=== PATIENT | male | born 1960 | race Caucasian/White ===

== ENCOUNTER 2017-11-04 08:42 | Inpatient (IN) | payer MEDICARE, MEDICAID, SELFPAY ==
[2017-11-04] VITALS (30 sets, daily range): BP systolic 112–136; BP diastolic 75–102; PULSE 102–133; RESP 12–39; TEMP 35.9–36.7; O2SAT 40–98; BMI 33.3; BMI 31.9
--- NOTE | 2017-11-04 08:47 | RAD_ITS ---
STUDY: X-RAY CHEST REASON FOR EXAM: Male, 57 years old. Extreme shortness of breath/dyspnea. TECHNIQUE: Single AP portable view of the chest. COMPARISON: Comparison is made with prior study dated October 03, 2017. FINDINGS: EKG electrodes are seen. Hyperinflation. Stable increased markings at the lung bases with blunting of the left costo phrenic angle. This most likely represents bibasilar scarring. Decreased bronchovascular markings in the right upper lobe suggestive of emphysematous changes. Normal size heart. Normal mediastinum and kim. Normal visualized pulmonary arteries. There is atherosclerotic tortuosity of the aortic arch and descending thoracic aorta. Normal visualized thoracic spine. Normal visualized ribs, clavicles, and shoulders. There is no demonstrated abnormality of the visualized soft tissue structures of the upper abdomen. RAD/Chest 1 View (Portable) IMPRESSION: Hyperinflation. Stable increased markings at the lung bases suggests possible scarring. Stable blunting of the left costophrenic angle. Electronically Signed: Sanchez Blood MD at 9:20 EST Tel [phone], Service support ,
--- NOTE | 2017-11-04 08:47 | EKG12_ITS ---
Test Reason : SOB Blood Pressure : / mmHG Vent. Rate : 125 BPM Atrial Rate : 125 BPM P-R Int : 120 ms QRS Dur : 086 ms QT Int : 280 ms P-R-T Axes : 076 046 060 degrees QTc Int : 404 ms Sinus tachycardia Otherwise normal ECG Confirmed by SANDY ESTES ([id number]), online content editor VEE ALEXANDRA ([id number]) on 11/08/2017 9:48:19 AM Referred By: RUBIA Confirmed By:SANDY ESTES
[2017-11-04] MEDS: Ipratropium/Albuterol Sulfate 3 ML AMPUL.NEB INHALATION ×5 (09:03→23:00)
[2017-11-04] MEDS: Albuterol 2.5 MG/3 ML VIAL.NEB. INHALATION ×2 (09:03)
--- NOTE | 2017-11-04 09:06 | ED.VISSUMM ---
- ER Visit Summary Date of Service: 11/04/17 Chief Complaint: Respiratory distress History of Present Illness: The patient is a 57 M presenting for evaluation due to respiratory distress. Patient has an underlying history of COPD last admission for this being back around [place]. Patient and his state that over the course of the last 3 days the patient has been getting progressively more short of breath. It was associated with a cough productive of green sputum and chills. This progressed to significant respiratory distress today the paramedics were called and the patient was brought immediately into the emergency department. Patient denies any chest pain associated with this. Patient states that he has increased his home oxygen from 4 L, and this has not necessarily alleviated his symptoms. Review of systems otherwise negative. Physical Examination: Vital signs notable for heart rate of 124, respiratory rate of 30, pulse ox of 94% on 6 L. Obese male visibly in respiratory distress. Moist mucous membranes. Neck supple. Heart tachycardic and regular no murmurs. Respirations showed respiratory distress with wheezing prolonged expiratory phase diminished sounds and patient speaking in 4-5 word sentences. Abdomen soft nontender. No peripheral edema. Skin was cool and diaphoretic. Remainder physical otherwise unremarkable. Test Results: EKG shows sinus rate of [address] segments normal T waves. Chest x-ray demonstrates chronic changes, CBC shows a leukocytosis of 14, venous blood gas shows hypoxia and hypercapnia. Troponin found to be negative. Flu swab found to be negative. Emergency Department Course and Treatment: Patient presented secondary to respiratory distress. Patient was immediately placed on BiPAP, and was given DuoNeb and albuterol treatments as well as Solu-Medrol. He had progressive improvement on subsequent reexaminations. Patient's workup seems indicative of hypercapnic and hypoxic respiratory failure. Given the fact that the patient requires mechanical ventilation I believe he requires admission to the ICU. I discussed this with the patient's pill packer Dr. Mendez as well as the hospitalist and the patient will be admitted. Disposition: Admission Impression: 1. COPD exacerbation 2. Combined hypercapnic and hypoxic respiratory failure Critical care time 40 minutes This note was generated with [employer] dictation software. It may contain incorrect words, spelling, and punctuation that were not noted in review of the chart prior to signing ED Disposition - Plan for ED Patient: Chief Complaint: Shortness of Breath Referrals: Kenia Matthew MD [Primary Care Provider] -
--- NOTE | 2017-11-04 09:09 | ED.DCSUM_ITS ---
- ER Visit Summary Date of Service: 11/04/17 Chief Complaint: Respiratory distress History of Present Illness: The patient is a 57 M presenting for evaluation due to respiratory distress. Patient has an underlying history of COPD last admission for this being back around [place]. Patient and his state that over the course of the last 3 days the patient has been getting progressively more short of breath. It was associated with a cough productive of green sputum and chills. This progressed to significant respiratory distress today the paramedics were called and the patient was brought immediately into the emergency department. Patient denies any chest pain associated with this. Patient states that he has increased his home oxygen from 4 L, and this has not necessarily alleviated his symptoms. Review of systems otherwise negative. Physical Examination: Vital signs notable for heart rate of 124, respiratory rate of 30, pulse ox of 94% on 6 L. Obese male visibly in respiratory distress. Moist mucous membranes. Neck supple. Heart tachycardic and regular no murmurs. Respirations showed respiratory distress with wheezing prolonged expiratory phase diminished sounds and patient speaking in 4-5 word sentences. Abdomen soft nontender. No peripheral edema. Skin was cool and diaphoretic. Remainder physical otherwise unremarkable. Test Results: EKG shows sinus rate of [address] segments normal T waves. Chest x-ray demonstrates chronic changes, CBC shows a leukocytosis of 14 , venous blood gas shows hypoxia and hypercapnia. Troponin found to be negative. Flu swab found to be negative. Emergency Department Course and Treatment: Patient presented secondary to respiratory distress. Patient was immediately placed on BiPAP, and was given DuoNeb and albuterol treatments as well as Solu-Medrol. He had progressive improvement on subsequent reexaminations. Patient's workup seems indicative of hypercapnic and hypoxic respiratory failure. Given the fact that the patient requires mechanical ventilation I believe he requires admission to the ICU. I discussed this with the patient's medical staff manager Dr. Mendez as well as the hospitalist and the patient will be admitted. Disposition: Admission Impression: 1. COPD exacerbation 2. Combined hypercapnic and hypoxic respiratory failure Critical care time 40 minutes This note was generated with [employer] dictation software. It may contain incorrect words, spelling, and punctuation that were not noted in review of the chart prior to signing ED Disposition - Plan for ED Patient: Chief Complaint: Shortness of Breath Referrals: Kenia Matthew MD [Primary Care Provider] -
[2017-11-04 09:39] LABS: Differential Indicated MANUAL DIFF; Hematocrit 41.8 % (40-54); Hemoglobin 11.9 g/dl (13.0-16.5); Mean Corp Hgb Conc 28.5 g/gl (32-36); Mean Corpuscular Hgb 23.4 pg (27.0-32.0); Mean Corpuscular Volume 82.1 fL (80-94); Mean Platelet Vol. 8.8 fl (6.2-12.0); POSITIVE COUNT YES; POSITIVE DIFFERENTIAL NO; POSITIVE MORPHOLOGY YES; Platelet Count 455 K/mm3 (150-450); RBC Distribution Width CV 16.1 % (11.6-14.6); RBC Distribution Width SD 48.5 fl (35.1-43.9); Red Blood Count 5.09 M/mm3 (4.6-6.2)
[2017-11-04 09:41] LABS: Blood Gas Specimen Type VEN; EPAP 11; FI02 40; IPAP 15; RR 12; Time Given 933; VBG BASE EXCESS 13 mmol/L (-1.0-3.5); VBG Bicarbonate 39 mmol/L (22-26); VBG Oxygen Content 41 mmol/L (23-33); VBG PO2 42 mmHg (25-40); VBG SO2 73 % (50-70); VBG pCO2 69.5 mmHg (41-51); VBG pH 7.35 (7.32-7.42)
[2017-11-04 09:43] LABS: Anion Gap 7 (5-15); BUN 17 mg/dL (7-18); BUN/Creat Ratio 14.3 RATIO (10-20); Calcium,Total 9.1 mg/dL (8.5-10.1); Chloride 93 mmol/L (98-107); Creatinine, Serum 1.19 mg/dL (0.70-1.30); EST Glomerular Filtration Rate 67 mL/min (>60); Est Glom Filt Rate - Afr Amer 81 mL/min (>60); Estimated Creatinine Clearance 72.07 ml/min; Glucose 156 mg/dL (70-110); Potassium 4.4 mmol/L (3.5-5.1); Sodium Level 136 mmol/L (136-145)
[2017-11-04] MEDS: MethylPREDNISolone 125 MG/2 ML Vial IV (09:43)
--- NOTE | 2017-11-04 10:05 | NURSING ---
DR SOFY BARKLEY
[2017-11-04 10:07] LABS: Eosinophil 1 % (0-5); Lymphocyte 14 % (19-41); Metamyelocyte 5 % (0-1); Monocyte 2 % (0-10); Neutrophil-Band 1 % (0-5); Neutrophil-Segmented 77 % (47-70); Total Cells Counted 100 (MANUAL DIFF)
[2017-11-04 10:08] LABS: Absolute Neutrophil Count 10.9 X10^3/uL (2.0-7.7); Platelet Estimate ADEQUATE (ADEQ); Red Cell Morphology NORM C+C NORMAL (NORM C&C)
--- NOTE | 2017-11-04 10:19 | NURSING ---
ICU ARF SOFY
[2017-11-04 14:13] LABS: M R Staph aureus DNA By PCR Negative (Negative); Probe Check PASS; Specimen Processing Control PASS
--- NOTE | 2017-11-04 14:27 | PCM.HP.STD ---
Problem List (1) Acute and chronic respiratory failure with hypoxia Status: Acute (2) Acute exacerbation of COPD with asthma Status: Acute (3) Congestive heart failure Status: Chronic (4) Presence of stent in coronary artery Status: Chronic Comment: C w/stenting to prox RCA (5) Atherosclerotic heart disease of [place] coronary artery without angina pectoris Status: Chronic Comment: [facility] w/stenting to prox RCA 07/15 (6) COPD (chronic obstructive pulmonary disease) Status: Chronic Qualifiers: (7) Hypertension Status: Chronic Qualifiers: (8) Hyperlipidemia Status: Chronic Qualifiers: History of Present Illness Date of Admission: 11/04/17 Chief Complaint: shortness of beathing The patient is a 57 year old M presents with shortness of breath. Patient had been for the past 3 days more short of breath. Patient was having cough with productive sputum and chills. Patient presented to the emergency room and was noted to be hypoxic at 84%. Patient was put on a BiPAP and stabilized. In the emergency room, patient received Solu-Medrol, and aerosols. Patient was awoken up by me in the ICU and states he is feeling better. Patient is rather tired at this time and is not very forthcoming historian. [] Past Medical History Past Medical History (Chronic Problems): Chronic Problems (Last Reviewed 10/27/17 @ 13:51 by Lizeth Clark) Congestive heart failure (Chronic) Presence of stent in coronary artery (Chronic ~07/2006) [facility] w/stenting to prox RCA Atherosclerotic heart disease of [place] coronary artery without angina pectoris (Chronic) [facility] w/stenting to prox RCA 07/15 COPD (chronic obstructive pulmonary disease) (Chronic) Hypertension (Chronic) Hyperlipidemia (Chronic) Allergies diazepam [From Valium] Adverse Reaction (Verified 11/04/17 08:51) Vomiting Home Medications: Ambulatory Orders Medication Instructions Recorded Aspirin [Aspirin, Baby] 81 mg PO DAILY@0800 10/04/14 Atorvastatin Calcium [Lipitor] 40 mg PO QHS 10/04/14 Cholecalciferol (VIT D3) [Vitamin 1,000 unit PO DAILY 10/04/14 D3] Clopidogrel Bisulfate [Plavix] 75 mg PO DAILY 10/04/14 Furosemide [Lasix] 40 mg PO BID 10/04/14 Multivitamins,Therapeutic 1 tab PO DAILY 10/04/14 [Multivitamin] Budesonide/Formoterol 160/4.5 2 puff INHALATION BID 02/24/15 [Symbicort 160/4.5 Mcg Inhaler (SP)] Roflumilast [Daliresp] 500 mcg PO DAILY 02/24/15 Budesonide Aerosol [Pulmicort 0.5 mg INHALATION BID 04/29/15 Respules] Potassium Chloride [Klor-Con M10] 20 meq PO BID 04/29/15 Famotidine [Pepcid] 20 mg PO BID 08/01/15 Metformin HCl [Glucophage] 750 mg PO DAILY 08/01/15 Oxygen, Home [Home Oxygen] 4 lpm NASAL PRN PRN 08/01/15 Albuterol Aerosols [Ventolin 2.5 mg INHALATION Q4H PRN PRN 08/02/15 Aerosols] Metformin HCl [Glucophage] 500 mg PO QHS 10/08/16 Ipratropium [Atrovent Aerosols] 0.5 mg INHALATION Q4H PRN PRN 11/08/16 Prednisone 10 mg PO DAILY #55 tab 10/09/17 bupropion HCl 100 mg tablet 100 mg PO BID 10/25/17 metoprolol tartrate 25 mg tablet 25 mg PO BID #60 tab 10/27/17 Surgical History: - - Rotator cuff surgery Psychiatric History: No pertinent psych hx Smoking Status: Former smoker - *Family History Maternal Family History: Family History (Last Reviewed 10/27/17 @ 13:51 by Lizeth Clark) Mother Diabetes Father Heart disease CVA (cerebral vascular accident) Brother Diabetes History Items: Clotting Disorder - Mother with history of PE following an ankle surgery Paternal Family History: Family History (Last Reviewed 10/27/17 @ 13:51 by Lizeth Clark) Mother Diabetes Father Heart disease CVA (cerebral vascular accident) Brother Diabetes History Items: Heart Disease Review of Systems Constitutional: Reports: Chills, Fever. Denies: Anorexia Eyes: Denies: Blurred vision, Double vision HEENT: Denies: Head Aches, Sinus Congestion, Sinus Drainage Cardiovascular: Denies: Chest Pain, Palpitations Respiratory: Reports: Cough, Shortness of Breath, Sputum production Gastrointestinal: Denies: Abdominal Pain, Nausea, Vomiting Genitourinary: Denies: Dysuria Musculoskeletal: Denies: Joint Pain, Joint Tenderness Skin: Denies: Rash, Wounds Neurological: Denies: Numbness, Tingling, Focal weakness Psychiatric: Denies: Anxiety, Depression, Homicidal Ideations, Suicidal Ideations Hematologic/ Lymphatic: Denies: Easy Bruising, Easy Bleeding, Hx of blood clot VTE Information - Inpt Only VTE Present on Admission: No VTE Pharm Prophylaxis ordered?: Yes Patient Problems: Active and Suspected Problems (Last Reviewed 10/27/17 @ 13:51 by Lizeth Clark) Acute and chronic respiratory failure with hypoxia (Acute) Acute exacerbation of COPD with asthma (Acute) - Physical Exam General: Alert, Cooperative, No apparent distress, - - On BiPAP. No respiratory distress. HEENT: Atraumatic, Normocephalic Oral: Moist Mucosa, No Gingival or Mucosal Lesions/ Ulcerations Neck: No Nodes, Thyroid Normal Size and Texture Lungs: Diminished, Wheezes Cardiovascular: Regular rate, Regular Rhythm, Normal S1, Normal S2, No murmurs Abdomen: Bowel Sounds Present, Soft, Non Tender, Non-Distended, No Hepato-splenomegaly Extremities: No edema, No Calf Tenderness Skin: No rashes, No breakdown Musculoskeletal: No Tenderness to Palpation of Joints or Extremities, No Muscle Wasting Neurological: Neuro grossly intact, Sensory exam intact to light touch and pain, - - No clonus Psych/Mental Status: Normal Affect, Appropriate Vital Signs Temp Pulse Resp BP Pulse Ox 35.9 C L 115 H 31 H 126/81 H 98 11/04/17 12:45 11/04/17 13:40 11/04/17 13:40 11/04/17 12:45 11/04/17 13:40 Oxygen Flow Rate 6 Oxygen Delivery Method Bi-pap Weight: 103.9 kg Body Mass Index (BMI) 31.9 Laboratory Tests Past 24 Hrs 11/04/17 12:35 MRSA (PCR) Negative Laboratory Results - last 24 hr 11/04/17 11/04/17 11/04/17 09:15 09:15 09:35 WBC 14.0 H RBC 5.09 Hgb 11.9 L Hct 41.8 MCV 82.1 MCH 23.4 L MCHC 28.5 L RDW 16.1 H RDW Differential 48.5 H Plt Count 455 H MPV 8.8 Neut % (Auto) Not Reportable Absolute Neuts (auto) 10.9 H Absolute Lymphs (auto) 2.00 Total Counted 100 Neutrophils % (Manual) 77 H Band Neutrophils % 1 Lymphocytes % (Manual) 14 L Monocytes % (Manual) 2 Eosinophils % (Manual) 1 Metamyelocytes % 5 H Diff Path Review May foll Platelet Estimate ADEQUATE RBC Morphology NORM C+C Specimen Type YULISSA O2 % 40 VBG pH 7.35 VBG pO2 42 H VBG O2 Sat (Calc) 73 H VBG O2 Content 41 H VBG Base Excess 13 H POC Mix VBG pCO2 Pt Tmp 69.5 H Respiration Rate 12 O2 Delivery Device Bi / C PAP EPAP 11 IPAP 15 Blood Gas Notified Whom ED MD Blood Gas Notified Time 933 Sodium 136 Potassium 4.4 Chloride 93 L Carbon Dioxide 36.0 H Anion Gap 7 BUN 17 Creatinine 1.19 Estim Creat Clear Calc 72.07 Est GFR (MDRD) Af Amer 81 Est GFR (MDRD) Non-Af 67 BUN/Creatinine Ratio 14.3 Glucose 156 H Calcium 9.1 Troponin I < 0.02 MRSA (PCR) 11/04/17 12:35 WBC RBC Hgb Hct MCV MCH MCHC RDW RDW Differential Plt Count MPV Neut % (Auto) Absolute Neuts (auto) Absolute Lymphs (auto) Total Counted Neutrophils % (Manual) Band Neutrophils % Lymphocytes % (Manual) Monocytes % (Manual) Eosinophils % (Manual) Metamyelocytes % Diff Path Review Platelet Estimate RBC Morphology Specimen Type O2 % VBG pH VBG pO2 VBG O2 Sat (Calc) VBG O2 Content VBG Base Excess POC Mix VBG pCO2 Pt Tmp Respiration Rate O2 Delivery Device EPAP IPAP Blood Gas Notified Whom Blood Gas Notified Time Sodium Potassium Chloride Carbon Dioxide Anion Gap BUN Creatinine Estim Creat Clear Calc Est GFR (MDRD) Af Amer Est GFR (MDRD) Non-Af BUN/Creatinine Ratio Glucose Calcium Troponin I MRSA (PCR) Negative Chest x-ray personally reviewed and shows some hyperinflation. No acute infiltrate or edema. Assessment/Plan Active and Suspected Problems (Last Reviewed 10/27/17 @ 13:51 by Lizeth Clark) Acute and chronic respiratory failure with hypoxia (Acute) Acute exacerbation of COPD with asthma (Acute) A 57-year-old white male presents with 3 days of increasing shortness of breath. Patient diagnosed with acute hypoxic respiratory failure as well as acute exacerbation of COPD. Patient has been started on steroids as well with bronchodilators. Patient initially admitted to the ICU. 1. Acute hypoxic respiratory failure Secondary to COPD. Patient been placed on BiPAP. Pulmonary consultation 2. Acute exacerbation of COPD Continue with Solu-Medrol plus bronchodilators. No evidence of any infiltrate on chest x-rays, so not started any antibiotics. 3. Coronary artery disease Status post PCI. Continue with aspirin, Plavix and statin. 4. Diabetes mellitus type 2 On metformin. We will add sliding scale insulin to his regimen. Moderate dose. 5. DVT prophylaxis with Lovenox Code Visit Inpatient E&M: 87560 Init Hosp L3
--- NOTE | 2017-11-04 14:37 | HP.PCM_ITS ---
Problem List (1) Acute and chronic respiratory failure with hypoxia Status: Acute (2) Acute exacerbation of COPD with asthma Status: Acute (3) Congestive heart failure Status: Chronic (4) Presence of stent in coronary artery Status: Chronic Comment: C w/stenting to prox RCA (5) Atherosclerotic heart disease of [place] coronary artery without angina pectoris Status: Chronic Comment: [facility] w/stenting to prox RCA 07/15 (6) COPD (chronic obstructive pulmonary disease) Status: Chronic Qualifiers: (7) Hypertension Status: Chronic Qualifiers: (8) Hyperlipidemia Status: Chronic Qualifiers: History of Present Illness Date of Admission: 11/04/17 Chief Complaint: shortness of beathing The patient is a 57 year old M presents with shortness of breath. Patient had been for the past 3 days more short of breath. Patient was having cough with productive sputum and chills. Patient presented to the emergency room and was noted to be hypoxic at 84%. Patient was put on a BiPAP and stabilized. In the emergency room, patient received Solu-Medrol, and aerosols. Patient was awoken up by me in the ICU and states he is feeling better. Patient is rather tired at this time and is not very forthcoming historian. [] Past Medical History Past Medical History (Chronic Problems): Chronic Problems (Last Reviewed 10/27/17 @ 13:51 by Lizeth Clark) Congestive heart failure (Chronic) Presence of stent in coronary artery (Chronic ~07/2006) [facility] w/stenting to prox RCA Atherosclerotic heart disease of [place] coronary artery without angina pectoris (Chronic) [facility] w/stenting to prox RCA 07/15 COPD (chronic obstructive pulmonary disease) (Chronic) Hypertension (Chronic) Hyperlipidemia (Chronic) Allergies diazepam [From Valium] Adverse Reaction (Verified 11/04/17 08:51) Vomiting Home Medications: Ambulatory Orders Medication Instructions Recorded Aspirin [Aspirin, Baby] 81 mg PO DAILY@0800 10/04/14 Atorvastatin Calcium [Lipitor] 40 mg PO QHS 10/04/14 Cholecalciferol (VIT D3) [Vitamin 1,000 unit PO DAILY 10/04/14 D3] Clopidogrel Bisulfate [Plavix] 75 mg PO DAILY 10/04/14 Furosemide [Lasix] 40 mg PO BID 10/04/14 Multivitamins,Therapeutic 1 tab PO DAILY 10/04/14 [Multivitamin] Budesonide/Formoterol 160/4.5 2 puff INHALATION BID 02/24/15 [Symbicort 160/4.5 Mcg Inhaler (SP)] Roflumilast [Daliresp] 500 mcg PO DAILY 02/24/15 Budesonide Aerosol [Pulmicort 0.5 mg INHALATION BID 04/29/15 Respules] Potassium Chloride [Klor-Con M10] 20 meq PO BID 04/29/15 Famotidine [Pepcid] 20 mg PO BID 08/01/15 Metformin HCl [Glucophage] 750 mg PO DAILY 08/01/15 Oxygen, Home [Home Oxygen] 4 lpm NASAL PRN PRN 08/01/15 Albuterol Aerosols [Ventolin 2.5 mg INHALATION Q4H PRN PRN 08/02/15 Aerosols] Metformin HCl [Glucophage] 500 mg PO QHS 10/08/16 Ipratropium [Atrovent Aerosols] 0.5 mg INHALATION Q4H PRN PRN 11/08/16 Prednisone 10 mg PO DAILY #55 tab 10/09/17 bupropion HCl 100 mg tablet 100 mg PO BID 10/25/17 metoprolol tartrate 25 mg tablet 25 mg PO BID #60 tab 10/27/17 Surgical History: - - Rotator cuff surgery Psychiatric History: No pertinent psych hx Smoking Status: Former smoker - *Family History Maternal Family History: Family History (Last Reviewed 10/27/17 @ 13:51 by Lizeth Clark) Mother Diabetes Father Heart disease CVA (cerebral vascular accident) Brother Diabetes History Items: Clotting Disorder - Mother with history of PE following an ankle surgery Paternal Family History: Family History (Last Reviewed 10/27/17 @ 13:51 by Lizeth Clark) Mother Diabetes Father Heart disease CVA (cerebral vascular accident) Brother Diabetes History Items: Heart Disease Review of Systems Constitutional: Reports: Chills, Fever. Denies: Anorexia Eyes: Denies: Blurred vision, Double vision HEENT: Denies: Head Aches, Sinus Congestion, Sinus Drainage Cardiovascular: Denies: Chest Pain, Palpitations Respiratory: Reports: Cough, Shortness of Breath, Sputum production Gastrointestinal: Denies: Abdominal Pain, Nausea, Vomiting Genitourinary: Denies: Dysuria Musculoskeletal: Denies: Joint Pain, Joint Tenderness Skin: Denies: Rash, Wounds Neurological: Denies: Numbness, Tingling, Focal weakness Psychiatric: Denies: Anxiety, Depression, Homicidal Ideations, Suicidal Ideations Hematologic/ Lymphatic: Denies: Easy Bruising, Easy Bleeding, Hx of blood clot VTE Information - Inpt Only VTE Present on Admission: No VTE Pharm Prophylaxis ordered?: Yes Patient Problems: Active and Suspected Problems (Last Reviewed 10/27/17 @ 13:51 by Lizeth Clark) Acute and chronic respiratory failure with hypoxia (Acute) Acute exacerbation of COPD with asthma (Acute) - Physical Exam General: Alert, Cooperative, No apparent distress, - - On BiPAP. No respiratory distress. HEENT: Atraumatic, Normocephalic Oral: Moist Mucosa, No Gingival or Mucosal Lesions/ Ulcerations Neck: No Nodes, Thyroid Normal Size and Texture Lungs: Diminished, Wheezes Cardiovascular: Regular rate, Regular Rhythm, Normal S1, Normal S2, No murmurs Abdomen: Bowel Sounds Present, Soft, Non Tender, Non-Distended, No Hepato- splenomegaly Extremities: No edema, No Calf Tenderness Skin: No rashes, No breakdown Musculoskeletal: No Tenderness to Palpation of Joints or Extremities, No Muscle Wasting Neurological: Neuro grossly intact, Sensory exam intact to light touch and pain , - - No clonus Psych/Mental Status: Normal Affect, Appropriate Vital Signs Temp Pulse Resp BP Pulse Ox 35.9 C L 115 H 31 H 126/81 H 98 11/04/17 12:45 11/04/17 13:40 11/04/17 13:40 11/04/17 12:45 11/04/17 13:40 Oxygen Flow Rate 6 Oxygen Delivery Method Bi-pap Weight: 103.9 kg Body Mass Index (BMI) 31.9 Laboratory Tests Past 24 Hrs 11/04/17 12:35 MRSA (PCR) Negative Laboratory Results - last 24 hr 11/04/17 11/04/17 11/04/17 09:15 09:15 09:35 WBC 14.0 H RBC 5.09 Hgb 11.9 L Hct 41.8 MCV 82.1 MCH 23.4 L MCHC 28.5 L RDW 16.1 H RDW Differential 48.5 H Plt Count 455 H MPV 8.8 Neut % (Auto) Not Reportable Absolute Neuts (auto) 10.9 H Absolute Lymphs (auto) 2.00 Total Counted 100 Neutrophils % (Manual) 77 H Band Neutrophils % 1 Lymphocytes % (Manual) 14 L Monocytes % (Manual) 2 Eosinophils % (Manual) 1 Metamyelocytes % 5 H Diff Path Review May foll Platelet Estimate ADEQUATE RBC Morphology NORM C+C Specimen Type YULISSA O2 % 40 VBG pH 7.35 VBG pO2 42 H VBG O2 Sat (Calc) 73 H VBG O2 Content 41 H VBG Base Excess 13 H POC Mix VBG pCO2 Pt Tmp 69.5 H Respiration Rate 12 O2 Delivery Device Bi / C PAP EPAP 11 IPAP 15 Blood Gas Notified Whom ED MD Blood Gas Notified Time 933 Sodium 136 Potassium 4.4 Chloride 93 L Carbon Dioxide 36.0 H Anion Gap 7 BUN 17 Creatinine 1.19 Estim Creat Clear Calc 72.07 Est GFR (MDRD) Af Amer 81 Est GFR (MDRD) Non-Af 67 BUN/Creatinine Ratio 14.3 Glucose 156 H Calcium 9.1 Troponin I < 0.02 MRSA (PCR) 11/04/17 12:35 WBC RBC Hgb Hct MCV MCH MCHC RDW RDW Differential Plt Count MPV Neut % (Auto) Absolute Neuts (auto) Absolute Lymphs (auto) Total Counted Neutrophils % (Manual) Band Neutrophils % Lymphocytes % (Manual) Monocytes % (Manual) Eosinophils % (Manual) Metamyelocytes % Diff Path Review Platelet Estimate RBC Morphology Specimen Type O2 % VBG pH VBG pO2 VBG O2 Sat (Calc) VBG O2 Content VBG Base Excess POC Mix VBG pCO2 Pt Tmp Respiration Rate O2 Delivery Device EPAP IPAP Blood Gas Notified Whom Blood Gas Notified Time Sodium Potassium Chloride Carbon Dioxide Anion Gap BUN Creatinine Estim Creat Clear Calc Est GFR (MDRD) Af Amer Est GFR (MDRD) Non-Af BUN/Creatinine Ratio Glucose Calcium Troponin I MRSA (PCR) Negative Chest x-ray personally reviewed and shows some hyperinflation. No acute infiltrate or edema. Assessment/Plan Active and Suspected Problems (Last Reviewed 10/27/17 @ 13:51 by Lizeth Clark) Acute and chronic respiratory failure with hypoxia (Acute) Acute exacerbation of COPD with asthma (Acute) A 57-year-old white male presents with 3 days of increasing shortness of breath. Patient diagnosed with acute hypoxic respiratory failure as well as acute exacerbation of COPD. Patient has been started on steroids as well with bronchodilators. Patient initially admitted to the ICU. 1. Acute hypoxic respiratory failure Secondary to COPD. Patient been placed on BiPAP. Pulmonary consultation 2. Acute exacerbation of COPD Continue with Solu-Medrol plus bronchodilators. No evidence of any infiltrate on chest x-rays, so not started any antibiotics. 3. Coronary artery disease Status post PCI. Continue with aspirin, Plavix and statin. 4. Diabetes mellitus type 2 On metformin. We will add sliding scale insulin to his regimen. Moderate dose. 5. DVT prophylaxis with Lovenox Code Visit Inpatient E&M: 55806 Init Hosp L3
[2017-11-04 15:32] LABS: Pathologist Review Reviewed
[2017-11-04] MEDS: 0.9% Normal Saline 1,000 ML 50 ML IV (16:00)
--- NOTE | 2017-11-04 16:27 | PCM.CON.CC ---
Problem List (1) Acute and chronic respiratory failure with hypoxia Status: Acute (2) Acute exacerbation of COPD with asthma Status: Acute (3) Old myocardial infarction Status: Acute (4) Congestive heart failure Status: Chronic Qualifiers: Congestive heart failure type: diastolic Congestive heart failure chronicity: chronic Qualified Code(s): I50.32 - Chronic diastolic (congestive) heart failure (5) Presence of stent in coronary artery Status: Chronic Comment: [facility] w/stenting to prox RCA (6) Atherosclerotic heart disease of [place] coronary artery without angina pectoris Status: Chronic Qualifiers: [place] vs. transplanted heart: [place] heart Qualified Code(s): I25.10 - Atherosclerotic heart disease of [place] coronary artery without angina pectoris Comment: [facility] w/stenting to prox RCA 07/15 (7) COPD (chronic obstructive pulmonary disease) Status: Chronic Qualifiers: COPD type: COPD with acute lower respiratory infection Qualified Code(s): J44.0 - Chronic obstructive pulmonary disease with acute lower respiratory infection (8) Hypertension Status: Chronic Qualifiers: Hypertension type: essential hypertension (9) Hyperlipidemia Status: Chronic Qualifiers: Hyperlipidemia type: pure hypercholesterolemia Reason for Consult Date of Consultation: 11/04/17 Reason for Consultation: COPD exacerbation History of Present Illness: The patient is a 57 year old M, with past medical history listed below and well-known to me from the outpatient office, who presented to [facility] secondary to 3 days of progressive shortness of breath. Patient does report a cough productive of green to yellow sputum and chills. In the emergency room, patient was noted to be 84% on baseline oxygen. Patient was placed on BiPAP therapy with improvement in overall condition. Patient was also given Solu-Medrol and aerosols. Patient was transferred to the intensive care unit for further monitoring. On evaluation in the intensive care unit, patient reports that he is tired, but overall feels subjectively improved since admission. Patient reports that he has been compliant with his trilogy at home, in addition to his supplemental oxygen. Patient denies missing any medications. Patient is not reporting any chest pain, nausea or vomiting at this time. Patient has noted some lower extremity edema. Patient denies any dietary modifications. Patient does feel that he made it back to his baseline between hospitalizations. Patient reports that he has not taken much by mouth in the last 24 hours secondary to shortness of breath. Patient does report thirst. Patient is known to have advanced COPD with a last known FEV1 of 20% predicted in May 2017. Patient does have a trilogy ventilator at home and patient reports compliance. However, this was broken his last admission in September secondary to infestation. Patient does not report that this was fixed by the D1G. Review of systems otherwise negative ?10 systems. Past Medical History Past Medical History (Chronic Problems): Chronic Problems (Last Reviewed 10/27/17 @ 13:51 by Lizeth Clark) Congestive heart failure (Chronic) Presence of stent in coronary artery (Chronic ~07/2006) [facility] w/stenting to prox RCA Atherosclerotic heart disease of [place] coronary artery without angina pectoris (Chronic) [facility] w/stenting to prox RCA 07/15 COPD (chronic obstructive pulmonary disease) (Chronic) Hypertension (Chronic) Hyperlipidemia (Chronic) Allergies diazepam [From Valium] Adverse Reaction (Verified 11/04/17 08:51) Vomiting Home Medications: Ambulatory Orders Medication Instructions Recorded Aspirin [Aspirin, Baby] 81 mg PO DAILY@0800 10/04/14 Atorvastatin Calcium [Lipitor] 40 mg PO QHS 10/04/14 Cholecalciferol (VIT D3) [Vitamin 1,000 unit PO DAILY 10/04/14 D3] Clopidogrel Bisulfate [Plavix] 75 mg PO DAILY 10/04/14 Furosemide [Lasix] 40 mg PO BID 10/04/14 Multivitamins,Therapeutic 1 tab PO DAILY 10/04/14 [Multivitamin] Budesonide/Formoterol 160/4.5 2 puff INHALATION BID 02/24/15 [Symbicort 160/4.5 Mcg Inhaler (SP)] Roflumilast [Daliresp] 500 mcg PO DAILY 02/24/15 Budesonide Aerosol [Pulmicort 0.5 mg INHALATION BID 04/29/15 Respules] Potassium Chloride [Klor-Con M10] 20 meq PO BID 04/29/15 Famotidine [Pepcid] 20 mg PO BID 08/01/15 Metformin HCl [Glucophage] 750 mg PO DAILY 08/01/15 Oxygen, Home [Home Oxygen] 4 lpm NASAL PRN PRN 08/01/15 Albuterol Aerosols [Ventolin 2.5 mg INHALATION Q4H PRN PRN 08/02/15 Aerosols] Metformin HCl [Glucophage] 500 mg PO QHS 10/08/16 Ipratropium [Atrovent Aerosols] 0.5 mg INHALATION Q4H PRN PRN 11/08/16 Prednisone 10 mg PO DAILY #55 tab 10/09/17 bupropion HCl 100 mg tablet 100 mg PO BID 10/25/17 metoprolol tartrate 25 mg tablet 25 mg PO BID #60 tab 10/27/17 Surgical History: - - Rotator cuff surgery Psychiatric History: No pertinent psych hx Smoking Status: Former smoker - *Family History Maternal Family History: Family History (Last Reviewed 10/27/17 @ 13:51 by Lizeth Clark) Mother Diabetes Father Heart disease CVA (cerebral vascular accident) Brother Diabetes History Items: Clotting Disorder - Mother with history of PE following an ankle surgery Paternal Family History: Family History (Last Reviewed 10/27/17 @ 13:51 by Lizeth Clark) Mother Diabetes Father Heart disease CVA (cerebral vascular accident) Brother Diabetes History Items: Heart Disease Review of Systems Comment: See HPI Patient Problems: Active and Suspected Problems (Last Reviewed 10/27/17 @ 13:51 by Lizeth Clark) Acute and chronic respiratory failure with hypoxia (Acute) Acute exacerbation of COPD with asthma (Acute) Objective: Chest x-ray was personally reviewed and shows continued hyperinflation. No acute infiltrate is appreciated. - Physical Exam General: Alert, Oriented x3, Cooperative, No apparent distress, - - Obese. Good BiPAP synchrony noted. HEENT: Atraumatic, PERRLA, EOMI, Normocephalic, - - Scleral injection without icterus Oral: No Gingival or Mucosal Lesions/ Ulcerations, Dry Mucosa Neck: Supple, No JVD, No Nodes, Trachea Midline Lungs: No rhonchi, No rales, Diminished, Wheezes, - - Symmetric expansion. No dullness to percussion. Cardiovascular: Normal S1, Normal S2, No murmurs, No rub noted, No Gallop, Tachycardic Abdomen: Bowel Sounds Present, Soft, Non Tender, Non-Distended, Obese Extremities: No cyanosis, Capillary Refill Less than 3 Seconds, Clubbing, Edema Skin: No rashes, No breakdown Musculoskeletal: No Tenderness to Palpation of Joints or Extremities Lymphatic: No Cervical, Supraclavicular, or Inguinal Adenopathy Neurological: Cranial nerves II-XII grossly intact, Neuro grossly intact, Motor Exam 5/5 strength throughout Psych/Mental Status: Alert and oriented to time, place, person, mood and affect Vital Signs Temp Pulse Resp BP Pulse Ox 35.9 C L 106 H 24 H 122/84 H 96 11/04/17 12:45 11/04/17 15:03 11/04/17 15:03 11/04/17 15:00 11/04/17 15:03 Oxygen Flow Rate 6 Oxygen Delivery Method Bi-pap Weight: 103.9 kg Body Mass Index (BMI) 31.9 Laboratory Tests 11/04/17 11/04/17 11/04/17 09:15 09:15 09:35 WBC 14.0 H RBC 5.09 Hgb 11.9 L Hct 41.8 MCV 82.1 MCH 23.4 L MCHC 28.5 L RDW 16.1 H RDW Differential 48.5 H Plt Count 455 H MPV 8.8 Neut % (Auto) Not Reportable Absolute Neuts (auto) 10.9 H Absolute Lymphs (auto) 2.00 Total Counted 100 Neutrophils % (Manual) 77 H Band Neutrophils % 1 Lymphocytes % (Manual) 14 L Monocytes % (Manual) 2 Eosinophils % (Manual) 1 Metamyelocytes % 5 H Diff Path Review Reviewed Platelet Estimate ADEQUATE RBC Morphology NORM C+C Specimen Type YULISSA O2 % 40 VBG pH 7.35 VBG pO2 42 H VBG O2 Sat (Calc) 73 H VBG O2 Content 41 H VBG Base Excess 13 H POC Mix VBG pCO2 Pt Tmp 69.5 H Respiration Rate 12 O2 Delivery Device Bi / C PAP EPAP 11 IPAP 15 Blood Gas Notified Whom ED Blood Gas Notified Time 933 Sodium 136 Potassium 4.4 Chloride 93 L Carbon Dioxide 36.0 H Anion Gap 7 BUN 17 Creatinine 1.19 Estim Creat Clear Calc 72.07 Est GFR (MDRD) Af Amer 81 Est GFR (MDRD) Non-Af 67 BUN/Creatinine Ratio 14.3 Glucose 156 H Calcium 9.1 Troponin I < 0.02 MRSA (PCR) 11/04/17 12:35 WBC RBC Hgb Hct MCV MCH MCHC RDW RDW Differential Plt Count MPV Neut % (Auto) Absolute Neuts (auto) Absolute Lymphs (auto) Total Counted Neutrophils % (Manual) Band Neutrophils % Lymphocytes % (Manual) Monocytes % (Manual) Eosinophils % (Manual) Metamyelocytes % Diff Path Review Platelet Estimate RBC Morphology Specimen Type O2 % VBG pH VBG pO2 VBG O2 Sat (Calc) VBG O2 Content VBG Base Excess POC Mix VBG pCO2 Pt Tmp Respiration Rate O2 Delivery Device EPAP IPAP Blood Gas Notified Whom Blood Gas Notified Time Sodium Potassium Chloride Carbon Dioxide Anion Gap BUN Creatinine Estim Creat Clear Calc Est GFR (MDRD) Af Amer Est GFR (MDRD) Non-Af BUN/Creatinine Ratio Glucose Calcium Troponin I MRSA (PCR) Negative Clinical Impression(s) from Imaging Studies Chest X-Ray 11/04/17 08:47 IMPRESSION: Hyperinflation. Stable increased markings at the lung bases suggests possible scarring. Stable blunting of the left costophrenic angle. Electronically Signed: Sanchez Blood MD at 9:20 EST Tel [phone], Service support , Assessment/Plan Active and Suspected Problems (Last Reviewed 10/27/17 @ 13:51 by Lizeth Clark) Acute and chronic respiratory failure with hypoxia (Acute) Acute exacerbation of COPD with asthma (Acute) RECOMMENDATIONS: 1. Increase IV steroids to every 6 hours 2. Agree with holding on antibiotics, initiate with fever only 3. Slow hydration overnight, repeat chest x-ray tomorrow 4. Obtain viral panel if no infiltrate by tomorrow 5. BiPAP breaks as tolerated IMPRESSIONS: 1. Acute on chronic hypoxic and hypercarbic respiratory failure Patient with advanced lung disease at baseline. Patient was last known FEV1 of 20% of predicted. Will increase steroids to IV every 6 hours. Will need to watch blood sugars closely. Patient does not have an infiltrate on chest x-ray at this time. However, patient does report decreased p.o. intake over the last 24 hours. Will start with gentle rehydration overnight and hold Lasix. Repeat chest x-ray tomorrow morning. If no infiltrate, a viral panel can be obtained. Agree with waiting on antibiotics until patient develops fever or other constitutional symptoms. 2. COPD exacerbation secondary to recent URI Patient had PFTs in May which showed severe partially reversible ventilatory defect. See #1. Unclear if patient has been compliant with home trilogy ventilator. Previous admission patient had brought this and it was nonfunctional. Patient does not report this is been fixed. Noncompliance with trilogy or oxygen therapy could lead to recurrent exacerbations. Patient did not make an attempt to contact our office prior to presenting for this exacerbation. 3. CAD s/pPTCA/anxiety/hyperlipidemia/hypertension Complicates care, management, recovery, and prognosis. Management per hospitalist. This note was generated with [employer] dictation software. It may contain incorrect words, spelling, and punctuation that were not noted in checking the note before signing. Code Visit Inpatient E&M: 09430 Init Hosp L3
--- NOTE | 2017-11-04 16:37 | CON.PCM_ITS ---
Problem List (1) Acute and chronic respiratory failure with hypoxia Status: Acute (2) Acute exacerbation of COPD with asthma Status: Acute (3) Old myocardial infarction Status: Acute (4) Congestive heart failure Status: Chronic Qualifiers: Congestive heart failure type: diastolic Congestive heart failure chronicity: chronic Qualified Code(s): I50.32 - Chronic diastolic (congestive ) heart failure (5) Presence of stent in coronary artery Status: Chronic Comment: [facility] w/stenting to prox RCA (6) Atherosclerotic heart disease of [place] coronary artery without angina pectoris Status: Chronic Qualifiers: [place] vs. transplanted heart: [place] heart Qualified Code(s): I25.10 - Atherosclerotic heart disease of [place] coronary artery without angina pectoris Comment: [facility] w/stenting to prox RCA 07/15 (7) COPD (chronic obstructive pulmonary disease) Status: Chronic Qualifiers: COPD type: COPD with acute lower respiratory infection Qualified Code(s): J44.0 - Chronic obstructive pulmonary disease with acute lower respiratory infection (8) Hypertension Status: Chronic Qualifiers: Hypertension type: essential hypertension (9) Hyperlipidemia Status: Chronic Qualifiers: Hyperlipidemia type: pure hypercholesterolemia Reason for Consult Date of Consultation: 11/04/17 Reason for Consultation: COPD exacerbation History of Present Illness: The patient is a 57 year old M, with past medical history listed below and well- known to me from the outpatient office, who presented to [facility] secondary to 3 days of progressive shortness of breath. Patient does report a cough productive of green to yellow sputum and chills. In the emergency room, patient was noted to be 84% on baseline oxygen. Patient was placed on BiPAP therapy with improvement in overall condition. Patient was also given Solu-Medrol and aerosols. Patient was transferred to the intensive care unit for further monitoring. On evaluation in the intensive care unit, patient reports that he is tired, but overall feels subjectively improved since admission. Patient reports that he has been compliant with his trilogy at home, in addition to his supplemental oxygen. Patient denies missing any medications. Patient is not reporting any chest pain, nausea or vomiting at this time. Patient has noted some lower extremity edema. Patient denies any dietary modifications. Patient does feel that he made it back to his baseline between hospitalizations. Patient reports that he has not taken much by mouth in the last 24 hours secondary to shortness of breath. Patient does report thirst. Patient is known to have advanced COPD with a last known FEV1 of 20% predicted in May 2017. Patient does have a trilogy ventilator at home and patient reports compliance. However, this was broken his last admission in September secondary to infestation. Patient does not report that this was fixed by the [employer]. Review of systems otherwise negative ?10 systems. Past Medical History Past Medical History (Chronic Problems): Chronic Problems (Last Reviewed 10/27/17 @ 13:51 by Lizeth Clark) Congestive heart failure (Chronic) Presence of stent in coronary artery (Chronic ~07/2006) [facility] w/stenting to prox RCA Atherosclerotic heart disease of [place] coronary artery without angina pectoris (Chronic) [facility] w/stenting to prox RCA 07/15 COPD (chronic obstructive pulmonary disease) (Chronic) Hypertension (Chronic) Hyperlipidemia (Chronic) Allergies diazepam [From Valium] Adverse Reaction (Verified 11/04/17 08:51) Vomiting Home Medications: Ambulatory Orders Medication Instructions Recorded Aspirin [Aspirin, Baby] 81 mg PO DAILY@0800 10/04/14 Atorvastatin Calcium [Lipitor] 40 mg PO QHS 10/04/14 Cholecalciferol (VIT D3) [Vitamin 1,000 unit PO DAILY 10/04/14 D3] Clopidogrel Bisulfate [Plavix] 75 mg PO DAILY 10/04/14 Furosemide [Lasix] 40 mg PO BID 10/04/14 Multivitamins,Therapeutic 1 tab PO DAILY 10/04/14 [Multivitamin] Budesonide/Formoterol 160/4.5 2 puff INHALATION BID 02/24/15 [Symbicort 160/4.5 Mcg Inhaler (SP)] Roflumilast [Daliresp] 500 mcg PO DAILY 02/24/15 Budesonide Aerosol [Pulmicort 0.5 mg INHALATION BID 04/29/15 Respules] Potassium Chloride [Klor-Con M10] 20 meq PO BID 04/29/15 Famotidine [Pepcid] 20 mg PO BID 08/01/15 Metformin HCl [Glucophage] 750 mg PO DAILY 08/01/15 Oxygen, Home [Home Oxygen] 4 lpm NASAL PRN PRN 08/01/15 Albuterol Aerosols [Ventolin 2.5 mg INHALATION Q4H PRN PRN 08/02/15 Aerosols] Metformin HCl [Glucophage] 500 mg PO QHS 10/08/16 Ipratropium [Atrovent Aerosols] 0.5 mg INHALATION Q4H PRN PRN 11/08/16 Prednisone 10 mg PO DAILY #55 tab 10/09/17 bupropion HCl 100 mg tablet 100 mg PO BID 10/25/17 metoprolol tartrate 25 mg tablet 25 mg PO BID #60 tab 10/27/17 Surgical History: - - Rotator cuff surgery Psychiatric History: No pertinent psych hx Smoking Status: Former smoker - *Family History Maternal Family History: Family History (Last Reviewed 10/27/17 @ 13:51 by Lizeth Clark) Mother Diabetes Father Heart disease CVA (cerebral vascular accident) Brother Diabetes History Items: Clotting Disorder - Mother with history of PE following an ankle surgery Paternal Family History: Family History (Last Reviewed 10/27/17 @ 13:51 by Lizeth Clark) Mother Diabetes Father Heart disease CVA (cerebral vascular accident) Brother Diabetes History Items: Heart Disease Review of Systems Comment: See HPI Patient Problems: Active and Suspected Problems (Last Reviewed 10/27/17 @ 13:51 by Lizeth Clark) Acute and chronic respiratory failure with hypoxia (Acute) Acute exacerbation of COPD with asthma (Acute) Objective: Chest x-ray was personally reviewed and shows continued hyperinflation. No acute infiltrate is appreciated. - Physical Exam General: Alert, Oriented x3, Cooperative, No apparent distress, - - Obese. Good BiPAP synchrony noted. HEENT: Atraumatic, PERRLA, EOMI, Normocephalic, - - Scleral injection without icterus Oral: No Gingival or Mucosal Lesions/ Ulcerations, Dry Mucosa Neck: Supple, No JVD, No Nodes, Trachea Midline Lungs: No rhonchi, No rales, Diminished, Wheezes, - - Symmetric expansion. No dullness to percussion. Cardiovascular: Normal S1, Normal S2, No murmurs, No rub noted, No Gallop, Tachycardic Abdomen: Bowel Sounds Present, Soft, Non Tender, Non-Distended, Obese Extremities: No cyanosis, Capillary Refill Less than 3 Seconds, Clubbing, Edema Skin: No rashes, No breakdown Musculoskeletal: No Tenderness to Palpation of Joints or Extremities Lymphatic: No Cervical, Supraclavicular, or Inguinal Adenopathy Neurological: Cranial nerves II-XII grossly intact, Neuro grossly intact, Motor Exam 5/5 strength throughout Psych/Mental Status: Alert and oriented to time, place, person, mood and affect Vital Signs Temp Pulse Resp BP Pulse Ox 35.9 C L 106 H 24 H 122/84 H 96 11/04/17 12:45 11/04/17 15:03 11/04/17 15:03 11/04/17 15:00 11/04/17 15:03 Oxygen Flow Rate 6 Oxygen Delivery Method Bi-pap Weight: 103.9 kg Body Mass Index (BMI) 31.9 Laboratory Tests 11/04/17 11/04/17 11/04/17 09:15 09:15 09:35 WBC 14.0 H RBC 5.09 Hgb 11.9 L Hct 41.8 MCV 82.1 MCH 23.4 L MCHC 28.5 L RDW 16.1 H RDW Differential 48.5 H Plt Count 455 H MPV 8.8 Neut % (Auto) Not Reportable Absolute Neuts (auto) 10.9 H Absolute Lymphs (auto) 2.00 Total Counted 100 Neutrophils % (Manual) 77 H Band Neutrophils % 1 Lymphocytes % (Manual) 14 L Monocytes % (Manual) 2 Eosinophils % (Manual) 1 Metamyelocytes % 5 H Diff Path Review Reviewed Platelet Estimate ADEQUATE RBC Morphology NORM C+C Specimen Type YULISSA O2 % 40 VBG pH 7.35 VBG pO2 42 H VBG O2 Sat (Calc) 73 H VBG O2 Content 41 H VBG Base Excess 13 H POC Mix VBG pCO2 Pt Tmp 69.5 H Respiration Rate 12 O2 Delivery Device Bi / C PAP EPAP 11 IPAP 15 Blood Gas Notified Whom ED Blood Gas Notified Time 933 Sodium 136 Potassium 4.4 Chloride 93 L Carbon Dioxide 36.0 H Anion Gap 7 BUN 17 Creatinine 1.19 Estim Creat Clear Calc 72.07 Est GFR (MDRD) Af Amer 81 Est GFR (MDRD) Non-Af 67 BUN/Creatinine Ratio 14.3 Glucose 156 H Calcium 9.1 Troponin I < 0.02 MRSA (PCR) 11/04/17 12:35 WBC RBC Hgb Hct MCV MCH MCHC RDW RDW Differential Plt Count MPV Neut % (Auto) Absolute Neuts (auto) Absolute Lymphs (auto) Total Counted Neutrophils % (Manual) Band Neutrophils % Lymphocytes % (Manual) Monocytes % (Manual) Eosinophils % (Manual) Metamyelocytes % Diff Path Review Platelet Estimate RBC Morphology Specimen Type O2 % VBG pH VBG pO2 VBG O2 Sat (Calc) VBG O2 Content VBG Base Excess POC Mix VBG pCO2 Pt Tmp Respiration Rate O2 Delivery Device EPAP IPAP Blood Gas Notified Whom Blood Gas Notified Time Sodium Potassium Chloride Carbon Dioxide Anion Gap BUN Creatinine Estim Creat Clear Calc Est GFR (MDRD) Af Amer Est GFR (MDRD) Non-Af BUN/Creatinine Ratio Glucose Calcium Troponin I MRSA (PCR) Negative Clinical Impression(s) from Imaging Studies Chest X-Ray 11/04/17 08:47 IMPRESSION: Hyperinflation. Stable increased markings at the lung bases suggests possible scarring. Stable blunting of the left costophrenic angle. Electronically Signed: Sanchez Blood MD at 9:20 EST Tel [phone], Service support , Assessment/Plan Active and Suspected Problems (Last Reviewed 10/27/17 @ 13:51 by Lizeth Clark) Acute and chronic respiratory failure with hypoxia (Acute) Acute exacerbation of COPD with asthma (Acute) RECOMMENDATIONS: 1. Increase IV steroids to every 6 hours 2. Agree with holding on antibiotics, initiate with fever only 3. Slow hydration overnight, repeat chest x-ray tomorrow 4. Obtain viral panel if no infiltrate by tomorrow 5. BiPAP breaks as tolerated IMPRESSIONS: 1. Acute on chronic hypoxic and hypercarbic respiratory failure Patient with advanced lung disease at baseline. Patient was last known FEV1 of 20% of predicted. Will increase steroids to IV every 6 hours. Will need to watch blood sugars closely. Patient does not have an infiltrate on chest x-ray at this time. However, patient does report decreased p.o. intake over the last 24 hours. Will start with gentle rehydration overnight and hold Lasix. Repeat chest x-ray tomorrow morning. If no infiltrate, a viral panel can be obtained. Agree with waiting on antibiotics until patient develops fever or other constitutional symptoms. 2. COPD exacerbation secondary to recent URI Patient had PFTs in May which showed severe partially reversible ventilatory defect. See #1. Unclear if patient has been compliant with home trilogy ventilator. Previous admission patient had brought this and it was nonfunctional. Patient does not report this is been fixed. Noncompliance with trilogy or oxygen therapy could lead to recurrent exacerbations. Patient did not make an attempt to contact our office prior to presenting for this exacerbation. 3. CAD s/pPTCA/anxiety/hyperlipidemia/hypertension Complicates care, management, recovery, and prognosis. Management per hospitalist. This note was generated with [employer] dictation software. It may contain incorrect words, spelling, and punctuation that were not noted in checking the note before signing. Code Visit Inpatient E&M: 67928 Init Hosp L3
[2017-11-04 16:41] LABS: Bedside Glucose 150 mg/dL (70-110)
--- NOTE | 2017-11-04 17:20 | CPS ---
PEP therapy cannot be started until pt can remain on the BIPAP for an extended period of time.
--- NOTE | 2017-11-04 18:00 | NURSING ---
off bipap for trial, pt is wishing to eat supper. at <5min, pt is gasping for air w/expiratory grunting. SpO2 82%. returned to bipap, SpO2 to 91 in 15min.
--- NOTE | 2017-11-04 18:39 | NURSING ---
education re chronic illness deferred till acute phase illness improving.
--- NOTE | 2017-11-04 21:08 | NURSING ---
Pt. taken off of bipap and placed on 6L NC to attempt a break so pt. can take night time meds. Will monitor to see if pt. can remain off of bipap.
[2017-11-04] MEDS: Famotidine 20 MG Tablet PO (21:33)
[2017-11-04] MEDS: Atorvastatin Calcium 40 MG Tablet PO (21:33)
[2017-11-04] MEDS: Aspirin 81 MG TAB.CHEW PO (21:34)
[2017-11-04] MEDS: Metoprolol Tartrate 25 MG Tablet PO (21:34)
[2017-11-04] MEDS: Clopidogrel Bisulfate 75 MG Tablet PO (21:34)
[2017-11-04] MEDS: 0.9% NaCl Peripheral Flush Adult/Peds IV (21:37)
[2017-11-04 21:46] LABS: Bedside Glucose 153 mg/dL (70-110)
--- NOTE | 2017-11-04 22:40 | CPS ---
off bipap for oral ,medication with RN.
--- NOTE | 2017-11-04 23:06 | NURSING ---
Pt. placed back on bipap for sleep. Pt. did well on a break on 6L NC.
[2017-11-05] VITALS (32 sets, daily range): BP systolic 106–131; BP diastolic 65–91; PULSE 80–119; RESP 12–26; TEMP 36.4–37.1; O2SAT 89–98
[2017-11-05] MEDS: Ipratropium/Albuterol Sulfate 3 ML AMPUL.NEB INHALATION ×6 (03:46→22:46)
[2017-11-05] MEDS: 0.9% NaCl Peripheral Flush Adult/Peds IV ×2 (04:08→21:28)
[2017-11-05 04:22] LABS: Absolute Lymphocyte Count 0.73 X10^3/ul (0.83-4.51); Absolute Neutrophil Count 7.8 X10^3/uL (2.0-7.7); Basophil# 0.01 X10^3/uL; Basophil% 0.1 % (0-1); Hematocrit 38.8 % (40-54); Lymphocyte # 0.73 X10^3/ul (4.0); Mean Corp Hgb Conc 28.4 g/gl (32-36); Mean Corpuscular Hgb 23.1 pg (27.0-32.0); Mean Corpuscular Volume 81.5 fL (80-94); Mean Platelet Vol. 8.8 fl (6.2-12.0); Monocyte# 0.47 X10^3/uL; Monocyte% 5.1 % (0-10); Neutrophil # 7.84 X10^3/uL (2.7-7.7); Neutrophil % 85.4 % (47-70); Platelet Count 452 K/mm3 (150-450); RBC Distribution Width CV 15.9 % (11.6-14.6); RBC Distribution Width SD 47.2 fl (35.1-43.9); Red Blood Count 4.76 M/mm3 (4.6-6.2); White Blood Count 9.2 K/mm3 (4.4-11.0)
[2017-11-05 04:32] LABS: POSITIVE COUNT NO; POSITIVE DIFFERENTIAL NO; POSITIVE MORPHOLOGY NO; Scan Indicated on CBC? Y/N NO
[2017-11-05 04:35] LABS: Anion Gap 7 (5-15); BUN 26 mg/dL (7-18); BUN/Creat Ratio 26.4 RATIO (10-20); Calcium,Total 9.2 mg/dL (8.5-10.1); Chloride 94 mmol/L (98-107); Creatinine, Serum 0.98 mg/dL (0.70-1.30); EST Glomerular Filtration Rate 83 mL/min (>60); Est Glom Filt Rate - Afr Amer 100 mL/min (>60); Estimated Creatinine Clearance 87.51 ml/min; Glucose 137 mg/dL (70-110); Phosphorus 3.7 mg/dL (2.5-4.9); Potassium 4.7 mmol/L (3.5-5.1); Sodium Level 137 mmol/L (136-145)
[2017-11-05 04:56] LABS: Magnesium 2.6 mg/dL (1.6-2.6)
--- NOTE | 2017-11-05 05:01 | RAD_ITS ---
STUDY: X-RAY CHEST REASON FOR EXAM: Male, 57 years old. Dyspnea TECHNIQUE: Single AP portable view of the chest. COMPARISON: None. FINDINGS: The lungs are clear and expanded. There is no demonstrated pleural abnormality. Normal size heart. Normal mediastinum and kim. Normal visualized pulmonary arteries. Normal visualized aortic arch and descending thoracic aorta. Normal visualized thoracic spine. Normal visualized ribs, clavicles, and shoulders. There is no demonstrated abnormality of the visualized soft tissue structures of the upper abdomen. RAD/Chest 1 View (Portable) IMPRESSION: Normal x-ray examination of the chest. Electronically Signed: Shakira Baca MD at 6:34 EST Tel , Service support ,
--- NOTE | 2017-11-05 05:43 | PN_ITS ---
Subjective: Patient reports subjective improvement in overall condition. Patient was able to come off of BiPAP for approximately 2 hours overnight and was initiated on a clear diet. Patient states he tolerated this well. Patient denies any complications with BiPAP therapy such as pain at the interface site. Objective: Chest x-ray was personally reviewed and shows no acute infiltrate. General: Alert, Oriented x3, Cooperative, No apparent distress, - - Appears older than stated age. Speaking in full sentences. HEENT: Atraumatic, PERRLA, EOMI, Normocephalic, - - No scleral icterus or injection noted. Oral: Moist Mucosa, No Gingival or Mucosal Lesions/ Ulcerations, - - Fair dentition Neck: Supple, No JVD, No Nodes, Trachea Midline Lungs: No rhonchi, No rales, Diminished, Wheezes, - - Symmetric expansion. No dullness to percussion. Cardiovascular: Regular rate, Regular Rhythm, Normal S1, Normal S2, No murmurs, No rub noted, No Gallop Abdomen: Bowel Sounds Present, Soft, Non Tender, Non-Distended, Obese Extremities: No cyanosis, No edema, Capillary Refill Less than 3 Seconds, Clubbing Skin: No rashes, No breakdown Musculoskeletal: No Tenderness to Palpation of Joints or Extremities Lymphatic: No Cervical, Supraclavicular, or Inguinal Adenopathy Neurological: Cranial nerves II-XII grossly intact, Motor Exam 5/5 strength throughout, Sensory exam intact to light touch and pain Psych/Mental Status: Alert and oriented to time, place, person, mood and affect Vital Signs Temp Pulse Resp BP Pulse Ox 36.6 C 88 22 H 126/85 H 93 11/05/17 04:00 11/05/17 05:00 11/05/17 05:00 11/05/17 05:00 11/05/17 05:00 Oxygen Flow Rate 6 Oxygen Delivery Method Bi-pap Weight: 104 kg Body Mass Index (BMI) 31.9 Intake and Output for Last 24 Hours 11/03/17 11/04/17 11/05/17 23:59 23:59 23:59 Intake Total 685 / 685 376 / 376 Output Total 375 / 375 200 / 200 Balance 310 / 310 176 / 176 Labs (Last 48 Hours) 11/04/17 11/04/17 11/04/17 12:35 16:29 21:30 WBC RBC Hgb Hct MCV MCH MCHC RDW RDW Differential Plt Count MPV Immature Gran % (Auto) Neut % (Auto) Lymph % (Auto) Mccreary % (Auto) Eos % (Auto) Baso % (Auto) Absolute Neuts (auto) Absolute Lymphs (auto) Total Counted Sodium Potassium Chloride Carbon Dioxide Anion Gap BUN Creatinine Estim Creat Clear Calc Est GFR (MDRD) Af Amer Est GFR (MDRD) Non-Af BUN/Creatinine Ratio Glucose Calcium Phosphorus Magnesium MRSA (PCR) Negative POC Glucose 150 H 153 H 11/05/17 11/05/17 04:10 04:10 WBC 9.2 RBC 4.76 Hgb 11.0 L Hct 38.8 L MCV 81.5 MCH 23.1 L MCHC 28.4 L RDW 15.9 H RDW Differential 47.2 H Plt Count 452 H MPV 8.8 Immature Gran % (Auto) 1.400 H Neut % (Auto) 85.4 H Lymph % (Auto) 8.0 L Mccreary % (Auto) 5.1 Eos % (Auto) 0.0 Baso % (Auto) 0.1 Absolute Neuts (auto) 7.8 H Absolute Lymphs (auto) 0.73 L Total Counted Not Reportable Sodium 137 Potassium 4.7 Chloride 94 L Carbon Dioxide 36.0 H Anion Gap 7 BUN 26 H Creatinine 0.98 Estim Creat Clear Calc 87.51 Est GFR (MDRD) Af Amer 100 Est GFR (MDRD) Non-Af 83 BUN/Creatinine Ratio 26.4 H Glucose 137 H Calcium 9.2 Phosphorus 3.7 Magnesium 2.6 MRSA (PCR) POC Glucose Clinical Impression(s) from Imaging Studies Chest X-Ray 11/04/17 08:47 IMPRESSION: Hyperinflation. Stable increased markings at the lung bases suggests possible scarring. Stable blunting of the left costophrenic angle. Electronically Signed: Sanchez Blood MD at 9:20 EST Tel [phone], Service support , Assessment/Plan Active and Suspected Problems (Last Reviewed 10/27/17 @ 13:51 by Lizeth Clark) Acute and chronic respiratory failure with hypoxia (Acute) Acute exacerbation of COPD with asthma (Acute) RECOMMENDATIONS: 1. Continue steroids at every 6 hours for another 24 hours 2. Agree with holding on antibiotics, initiate with fever only 3. Okay to resume patient's baseline diuretic therapy 4. Obtain viral panel 5. BiPAP breaks as tolerated 6. Okay to leave the intensive care unit from my perspective IMPRESSIONS: 1. Acute on chronic hypoxic and hypercarbic respiratory failure Patient with advanced lung disease at baseline. Patient was last known FEV1 of 20% of predicted. Will keep patient steroids at every 6 hours for another 24 hours. Patient does not have any acute infiltrate despite hydration with improvement in renal function. This makes occult pneumonia unlikely. Likely okay to resume patient's baseline diuretic therapy. Will obtain a viral panel. Agree with holding antibiotics unless patient spikes a fever. BiPAP breaks as tolerated during the day. Likely okay to leave the intensive care unit from my perspective. 2. COPD exacerbation secondary to recent URI Patient had PFTs in May which showed severe partially reversible ventilatory defect. See #1. Unclear if patient has been compliant with home trilogy ventilator. Previous admission patient had brought this and it was nonfunctional. Patient does not report this is been fixed. Noncompliance with trilogy or oxygen therapy could lead to recurrent exacerbations. Patient did not make an attempt to contact our office prior to presenting for this exacerbation. 3. CAD s/pPTCA/anxiety/hyperlipidemia/hypertension Complicates care, management, recovery, and prognosis. Management per hospitalist. This note was generated with [employer] software. It may contain incorrect words, spelling, and punctuation that were not noted in checking the note before signing. Code Visit Inpatient E&M: 61979 [facility] Hosp L3
[2017-11-05 07:36] LABS: Bedside Glucose 160 mg/dL (70-110)
[2017-11-05] MEDS: Aspirin 81 MG TAB.CHEW PO (07:48)
[2017-11-05] MEDS: Multivitamins,Therapeutic Tablet 1 TABLET PO (07:48)
[2017-11-05] MEDS: Furosemide 40 MG Tablet PO ×2 (09:51→17:10)
[2017-11-05] MEDS: Clopidogrel Bisulfate 75 MG Tablet PO (09:51)
[2017-11-05] MEDS: Famotidine 20 MG Tablet PO ×2 (09:52→21:28)
[2017-11-05] MEDS: Metoprolol Tartrate 25 MG Tablet PO ×2 (09:52→21:28)
[2017-11-05] MEDS: Enoxaparin 40 MG/0.4 ML Syringe SC (09:52)
--- NOTE | 2017-11-05 10:40 | PCM.PN.HOSP ---
Patient Problems: Active and Suspected Problems (Last Reviewed 10/27/17 @ 13:51 by Lizeth Clark) Acute and chronic respiratory failure with hypoxia (Acute) Acute exacerbation of COPD with asthma (Acute) Subjective: Feeling better. Tolerating being off of BiPAP. Vitals/I&O's: Vital Signs Temp Pulse Resp BP Pulse Ox 37.1 C 111 H 22 H 125/81 H 93 11/05/17 08:00 11/05/17 09:52 11/05/17 08:00 11/05/17 08:00 11/05/17 08:00 Oxygen Flow Rate 6 Oxygen Delivery Method Nasal Cannula Weight: 104 kg Body Mass Index (BMI) 31.9 Intake and Output for Last 24 Hours 11/03/17 11/04/17 11/05/17 23:59 23:59 23:59 Intake Total 685 / 685 376 / 376 Output Total 375 / 375 200 / 200 Balance 310 / 310 176 / 176 General: Alert, Cooperative, No apparent distress HEENT: Atraumatic, Normocephalic Neck: No Nodes, Thyroid Normal Size and Texture Lungs: Clear to auscultation, Normal air movement, No rhonchi, No wheeze Cardiovascular: Regular rate, Regular Rhythm, Normal S1, Normal S2, No murmurs Abdomen: Bowel Sounds Present, Soft, Non Tender, Non-Distended Extremities: No edema, No Calf Tenderness Psych/Mental Status: Normal Affect, Appropriate Microbiology Past 72 Hours 11/05/17 07:16 Mucosa - Nasopharyngeal Respiratory Panel (PCR) - Final Human [place] Laboratory Results 11/04/17 12:35: MRSA (PCR) Negative 11/04/17 16:29: POC Glucose 150 H 11/04/17 21:30: POC Glucose 153 H 11/05/17 04:10: WBC 9.2, RBC 4.76, Hgb 11.0 L, Hct 38.8 L, MCV 81.5, MCH 23.1 L, MCHC 28.4 L, RDW 15.9 H, RDW Differential 47.2 H, Plt Count 452 H, MPV 8.8, Immature Gran % (Auto) 1.400 H, Neut % (Auto) 85.4 H, Lymph % (Auto) 8.0 L, [place] % (Auto) 5.1, Eos % (Auto) 0.0, Baso % (Auto) 0.1, Absolute Neuts (auto) 7.8 H, Absolute Lymphs (auto) 0.73 L, Total Counted Not Reportable 11/05/17 04:10: Sodium 137, Potassium 4.7, Chloride 94 L, Carbon Dioxide 36.0 H, Anion Gap 7, BUN 26 H, Creatinine 0.98, Estim Creat Clear Calc 87.51, Est GFR (MDRD) Af Amer 100, Est GFR (MDRD) Non-Af 83, BUN/Creatinine Ratio 26.4 H, Glucose 137 H, Calcium 9.2, Phosphorus 3.7, Magnesium 2.6 11/05/17 07:29: POC Glucose 160 H Current Medications Acetaminophen (Tylenol) 650 mg PO Q6H PRN PRN PRN Reason: Mild Pain (scale 0-3)/T>100.7 Albuterol Sulfate (Ventolin Aerosols) 2.5 mg INHALATION Q2H PRN PRN PRN Reason: SHORTNESS OF BREATH Albuterol/Ipratropium (Duoneb) 3 ml INHALATION Q4H.RT [facility] Last Admin: 11/05/17 07:03 Dose: 3 ml Aspirin (Aspirin, Baby) 81 mg PO DAILY@0800 [facility] Last Admin: 11/05/17 07:48 Dose: 81 mg Atorvastatin Calcium (Lipitor) 40 mg PO QHS [facility] Last Admin: 11/04/17 21:33 Dose: 40 mg Bupropion HCl (Wellbutrin) 100 mg PO BID [facility] Last Admin: 11/05/17 09:52 Dose: 100 mg Cholecalciferol (Vitamin [facility]) [facility] Admin: 11/05/17 07:49 Dose: 1,000 unit Clopidogrel Bisulfate (Plavix) 75 mg PO DAILY [facility] Last Admin: 11/05/17 09:51 Dose: 75 mg Dextrose (D50w Syringe) 0 gm IV X1 PRN; Protocol PRN Reason: Hypoglycemia Enoxaparin Sodium (Lovenox) 40 mg SC DAILY@1000 [facility] Last Admin: 11/05/17 09:52 Dose: 40 mg Famotidine (Pepcid) 20 mg PO BID [facility] Last Admin: 11/05/17 09:52 Dose: 20 mg Furosemide (Lasix) 40 mg PO BID@1000,1800 [facility] Last Admin: 11/05/17 09:51 Dose: 40 mg Glucagon () 1 mg IM .X1 PRN PRN Reason: Hypoglycemia Sodium Chloride () 250 mls @ 15 mls/hr IV .[id number] PRN PRN Reason: SALINE FLUSH Sodium Chloride () 250 mls @ 15 mls/hr IV .[id number] PRN PRN Reason: SALINE FLUSH Sodium Chloride () 1,000 mls @ 50 mls/hr IV .Q20H [facility] Stop: 11/05/17 12:24 Last Admin: 11/04/17 16:00 Dose: 50 mls/hr Insulin Aspart (Novolog Flexpen (Bkc)) 0 units SC TIDAC [facility] PRN Reason: Protocol Last Admin: 11/05/17 09:01 Dose: 1 u Magnesium Hydroxide (Milk Of Magnesia) 30 ml PO DAILY PRN PRN PRN Reason: Constipation Metformin HCl (Glucophage) 500 mg PO QHS [facility] Last Admin: 11/04/17 21:33 Dose: 500 mg Metformin HCl (Glucophage) 750 mg PO DAILY@0800 [facility] Last Admin: 11/05/17 07:49 Dose: 750 mg Methylprednisolone (Solu-Medrol) 40 mg IV Q6H [facility] Last Admin: 11/05/17 10:30 Dose: 40 mg Metoprolol Tartrate (Lopressor (Beta Luisa)) 25 mg PO BID [facility] Last Admin: 11/05/17 09:52 Dose: 25 mg Multivitamins (Multivitamin) [facility] Admin: 11/05/17 07:48 Dose: 1 tablet Ondansetron HCl (Zofran) 4 mg IV Q8H PRN PRN PRN Reason: Nausea Potassium Chloride (K-Dur) [facility] Last Admin: 11/05/17 07:48 Dose: 20 meq Sodium Chloride () 5 - 30 ml IV UD PRN PRN Reason: SALINE FLUSH Last Admin: 11/05/17 04:08 Dose: 10 ml Assessment/Plan Active and Suspected Problems (Last Reviewed 10/27/17 @ 13:51 by Lizeth Clark) Acute and chronic respiratory failure with hypoxia (Acute) Acute exacerbation of COPD with asthma (Acute) A 57-year-old white male presents with 3 days of increasing shortness of breath. Patient diagnosed with acute hypoxic respiratory failure as well as acute exacerbation of COPD. Patient has been started on steroids as well with bronchodilators. Patient initially admitted to the ICU. 1. Acute hypoxic respiratory failure Secondary to COPD. But also likely related with patient being positive for human Metapneumo virus Improved today. Tolerating nasal cannula currently. 2. Acute exacerbation of COPD Continue with Solu-Medrol plus bronchodilators. No evidence of any infiltrate on chest x-rays, so not started any antibiotics. 3. Coronary artery disease Status post PCI. Continue with aspirin, Plavix and statin. 4. Diabetes mellitus type 2 On metformin. We will add sliding scale insulin to his regimen. Moderate dose. 5. DVT prophylaxis with Lovenox Transfer to the progressive care unit. Code Visit Inpatient E&M: 90308 Subs Hosp L2
--- NOTE | 2017-11-05 11:05 | CASEMGMT ---
Social Work Spoke with patient in room. Introduced self as well as social work role within the hospital setting. Patient reporting to live with spouse, daughter, and 2 grandsons in a mobile home with 5 steps to enter. Patient has oxygen at home through [employer]. Patient has no other durable medical equipment and was walking around the home independent prior. Patient reporting to currently be on disability due to lungs. Patient still drives. Patient reporting to have smoked tobacco for 40 years but to not have had a cigarette in x2 years. Patient denies any depression or anxiety. Patient denies current alcohol use, reporting that last alcoholic beverage was x3 years ago. Patient plans to return back home and is voicing no needs at this time. PLAN: Discharge back home with family. Rhonda MONTANEZ, [employer]
[2017-11-05 12:21] LABS: Bedside Glucose 176 mg/dL (70-110)
[2017-11-05 16:20] LABS: Bedside Glucose 186 mg/dL (70-110)
[2017-11-05] MEDS: Atorvastatin Calcium 40 MG Tablet PO (21:27)
[2017-11-05 22:05] LABS: Bedside Glucose 169 mg/dL (70-110)
[2017-11-06] VITALS (22 sets, daily range): BP systolic 111–122; BP diastolic 68–80; PULSE 82–105; RESP 12–27; TEMP 36.6–36.9; O2SAT 90–99
[2017-11-06] MEDS: Ipratropium/Albuterol Sulfate 3 ML AMPUL.NEB INHALATION ×6 (02:05→23:30)
[2017-11-06] MEDS: 0.9% NaCl Peripheral Flush Adult/Peds IV ×2 (04:17→22:26)
[2017-11-06 06:56] LABS: Bedside Glucose 147 mg/dL (70-110)
--- NOTE | 2017-11-06 08:21 | PCM.PROGNOTE ---
Patient Problems: Active and Suspected Problems (Last Reviewed 10/27/17 @ 13:51 by Lizeth Clark) Acute and chronic respiratory failure with hypoxia (Acute) Acute exacerbation of COPD with asthma (Acute) Subjective: Patient did well overnight. Patient with subjective improvement in overall condition. Patient compliant with nocturnal BiPAP therapy. Cough is somewhat improved. - Physical Exam General: Alert, Oriented x3, Cooperative, No apparent distress, - - Appears older than stated age. Speaking in full sentences. HEENT: Atraumatic, PERRLA, EOMI, Normocephalic, - - No scleral icterus or injection noted. Oral: Moist Mucosa, No Gingival or Mucosal Lesions/ Ulcerations Neck: Supple, No JVD, No Nodes, Trachea Midline Lungs: No rhonchi, No rales, Diminished, Wheezes, - - Symmetric expansion. No dullness to percussion. Cardiovascular: Regular rate, Regular Rhythm, Normal S1, Normal S2, No murmurs, No rub noted, No Gallop Abdomen: Bowel Sounds Present, Soft, Non Tender, Non-Distended, Obese Extremities: No cyanosis, Capillary Refill Less than 3 Seconds, Clubbing, Edema Skin: No rashes, No breakdown Musculoskeletal: No Tenderness to Palpation of Joints or Extremities Lymphatic: No Cervical, Supraclavicular, or Inguinal Adenopathy Neurological: Cranial nerves II-XII grossly intact, Neuro grossly intact, Motor Exam 5/5 strength throughout Psych/Mental Status: Alert and oriented to time, place, person, mood and affect Vital Signs Temp Pulse Resp BP Pulse Ox 36.6 C 91 27 H 117/68 90 11/06/17 04:24 11/06/17 07:20 11/06/17 07:20 11/06/17 04:24 11/06/17 07:27 Oxygen Flow Rate 4 Oxygen Delivery Method Nasal Cannula Weight: 105.6 kg Body Mass Index (BMI) 31.9 Intake and Output for Last 24 Hours 11/04/17 11/05/17 11/06/17 23:59 23:59 23:59 Intake Total 685 / 685 1453 / 1453 30 / 30 Output Total 375 / 375 550 / 550 675 / 675 Balance 310 / 310 903 / 903 -645 / -645 Microbiology Past 72 Hours 11/04/17 21:15 Gram Stain - Final Sputum, Expectorated/Coughed 11/05/17 07:16 Respiratory Panel (PCR) - Final Mucosa - Nasopharyngeal Human [place] POC Glucose 11/06/17 11/05/17 11/05/17 06:40 21:16 16:16 POC Glucose 147 H 169 H 186 H 11/05/17 12:11 POC Glucose 176 H Assessment/Plan Active and Suspected Problems (Last Reviewed 10/27/17 @ 13:51 by Lizeth Clark) Acute and chronic respiratory failure with hypoxia (Acute) Acute exacerbation of COPD with asthma (Acute) RECOMMENDATIONS: 1. Decrease steroids 2. Agree with holding on antibiotics, initiate with fever only 3. Resume baseline medical therapy 4. BiPAP breaks as tolerated IMPRESSIONS: 1. Acute on chronic hypoxic and hypercarbic respiratory failure secondary to human Metapneumovirus Patient with advanced lung disease at baseline. Patient was last known FEV1 of 20% of predicted. Patient is responded well to supportive therapy. Will decrease steroids today. Continue with BiPAP rescue as necessary. Respiratory precautions. 2. COPD exacerbation secondary to recent URI Patient had PFTs in May which showed severe partially reversible ventilatory defect. See #1. Unclear if patient has been compliant with home trilogy ventilator. Previous admission patient had brought this and it was nonfunctional. Patient does not report this is been fixed. Noncompliance with trilogy or oxygen therapy could lead to recurrent exacerbations. Patient did not make an attempt to contact our office prior to presenting for this exacerbation. 3. CAD s/pPTCA/anxiety/hyperlipidemia/hypertension Complicates care, management, recovery, and prognosis. Management per hospitalist. This note was generated with [employer] dictation software. It may contain incorrect words, spelling, and punctuation that were not noted in checking the note before signing. Code Visit Inpatient E&M: 14307 Subs Hosp L2
[2017-11-06] MEDS: Aspirin 81 MG TAB.CHEW PO (09:06)
[2017-11-06] MEDS: Multivitamins,Therapeutic Tablet 1 TABLET PO (09:07)
[2017-11-06] MEDS: Metoprolol Tartrate 25 MG Tablet PO ×2 (09:08→22:22)
[2017-11-06] MEDS: Furosemide 40 MG Tablet PO ×2 (09:08→17:40)
[2017-11-06] MEDS: Clopidogrel Bisulfate 75 MG Tablet PO (09:09)
[2017-11-06] MEDS: Enoxaparin 40 MG/0.4 ML Syringe SC (09:09)
[2017-11-06] MEDS: Famotidine 20 MG Tablet PO ×2 (09:09→22:22)
--- NOTE | 2017-11-06 10:19 | PN_ITS ---
Patient Problems: Active and Suspected Problems (Last Reviewed 10/27/17 @ 13:51 by Lizeth Clark) Acute and chronic respiratory failure with hypoxia (Acute) Acute exacerbation of COPD with asthma (Acute) Subjective: Complains of paroxysms of dry cough. With these coughing episodes, he gets short of breath afterwards. Patient that his breathing is fine other than these coughing episodes. Vitals/I&O's: Vital Signs Temp Pulse Resp BP Pulse Ox 36.9 C 92 18 118/71 93 11/06/17 08:25 11/06/17 09:08 11/06/17 08:25 11/06/17 08:25 11/06/17 08:25 Oxygen Flow Rate 3 Oxygen Delivery Method Nasal Cannula Weight: 105.6 kg Body Mass Index (BMI) 31.9 Intake and Output for Last 24 Hours 11/04/17 11/05/17 11/06/17 23:59 23:59 23:59 Intake Total 685 / 685 1453 / 1453 30 / 30 Output Total 375 / 375 550 / 550 675 / 675 Balance 310 / 310 903 / 903 -645 / -645 General: Alert, Cooperative, No apparent distress HEENT: Atraumatic, Normocephalic Neck: No Nodes, Thyroid Normal Size and Texture Lungs: Diminished, Wheezes Cardiovascular: Regular rate, Regular Rhythm, Normal S1, Normal S2 Abdomen: Bowel Sounds Present, Soft, Non Tender, Non-Distended Extremities: No edema, No Calf Tenderness Psych/Mental Status: Normal Affect, Appropriate Microbiology Past 72 Hours 11/04/17 21:15 Sputum, Expectorated/Coughed Gram Stain - Final 11/05/17 07:16 Mucosa - Nasopharyngeal Respiratory Panel (PCR) - Final Human [place] Laboratory Results 11/05/17 12:11: POC Glucose 176 H 11/05/17 16:16: POC Glucose 186 H 11/05/17 21:16: POC Glucose 169 H 11/06/17 06:40: POC Glucose 147 H Current Medications Acetaminophen (Tylenol) 650 mg PO Q6H PRN PRN PRN Reason: Mild Pain (scale 0-3)/T>100.7 Albuterol Sulfate (Ventolin Aerosols) 2.5 mg INHALATION Q2H PRN PRN PRN Reason: SHORTNESS OF BREATH Albuterol/Ipratropium (Duoneb) 3 ml INHALATION Q4H.RT [facility] Last Admin: 11/06/17 07:21 Dose: 3 ml Aspirin (Aspirin, Baby) 81 mg PO DAILY@0800 [facility] Last Admin: 11/06/17 09:06 Dose: 81 mg Atorvastatin Calcium (Lipitor) 40 mg PO QHS [facility] Last Admin: 11/05/17 21:27 Dose: 40 mg Bupropion HCl (Wellbutrin) 100 mg PO BID [facility] Last Admin: 11/06/17 09:09 Dose: 100 mg Cholecalciferol (Vitamin D) [facility] Last Admin: 11/06/17 09:08 Dose: 1,000 unit Clopidogrel Bisulfate (Plavix) 75 mg PO DAILY [facility] Last Admin: 11/06/17 09:09 Dose: 75 mg Dextrose (D50w Syringe) 0 gm IV X1 PRN; Protocol PRN Reason: Hypoglycemia Enoxaparin Sodium (Lovenox) 40 mg SC DAILY@1000 [facility] Last Admin: 11/06/17 09:09 Dose: 40 mg Famotidine (Pepcid) 20 mg PO BID [facility] Last Admin: 11/06/17 09:09 Dose: 20 mg Furosemide (Lasix) 40 mg PO BID@1000,1800 [facility] Last Admin: 11/06/17 09:08 Dose: 40 mg Glucagon () 1 mg IM .X1 PRN PRN Reason: Hypoglycemia Insulin Aspart (Novolog Flexpen (Bkc)) 0 units SC TIDAC [facility] PRN Reason: Protocol Last Admin: 11/06/17 08:18 Dose: Not Given Magnesium Hydroxide (Milk Of Magnesia) 30 ml PO DAILY PRN PRN PRN Reason: Constipation Metformin HCl (Glucophage) 500 mg PO QHS [facility] Last Admin: 11/05/17 21:27 Dose: 500 mg Metformin HCl (Glucophage) 750 mg PO DAILY@0800 [facility] Last Admin: 11/06/17 09:04 Dose: 750 mg Methylprednisolone (Solu-Medrol) 40 mg IV Q8 [facility] Metoprolol Tartrate (Lopressor (Beta Luisa)) 25 mg PO BID [facility] Last Admin: 11/06/17 09:08 Dose: 25 mg Multivitamins (Multivitamin) [facility] Last Admin: 11/06/17 09:07 Dose: 1 tablet Ondansetron HCl (Zofran) 4 mg IV Q8H PRN PRN PRN Reason: Nausea Potassium Chloride (K-Dur) 20 meq PO BID[facility] Last Admin: 11/06/17 09:06 Dose: 20 meq Sodium Chloride () 5 - 30 ml IV UD PRN PRN Reason: SALINE FLUSH Last Admin: 11/06/17 04:17 Dose: 10 ml Assessment/Plan Active and Suspected Problems (Last Reviewed 10/27/17 @ 13:51 by Lizeth Clark) Acute and chronic respiratory failure with hypoxia (Acute) Acute exacerbation of COPD with asthma (Acute) A 57-year-old white male presents with 3 days of increasing shortness of breath. Patient diagnosed with acute hypoxic respiratory failure as well as acute exacerbation of COPD. Patient has been started on steroids as well with bronchodilators. 1. Acute hypoxic respiratory failure Secondary to COPD. But also likely related with patient being positive for human Metapneumo virus Improved today. Tolerating nasal cannula currently. We will add guaifenesin with codeine to help him with the paroxysms of cough that he has been experiencing. 2. Acute exacerbation of COPD Continue with Solu-Medrol plus bronchodilators. No evidence of any infiltrate on chest x-rays, so not started any antibiotics. We will continue with the Solu-Medrol 40 mg every 8 hours. Patient is a high likelihood of readmission so patient need to be monitored for at least next 24 hours before he can be discharged. 3. Coronary artery disease Status post PCI. Continue with aspirin, Plavix and statin. 4. Diabetes mellitus type 2 On metformin. We will add sliding scale insulin to his regimen. Moderate dose. fair control 5. DVT prophylaxis with Lovenox Code Visit Inpatient E&M: 58596 [place] H[facility] L2
[2017-11-06 11:36] LABS: Bedside Glucose 153 mg/dL (70-110)
[2017-11-06 17:40] LABS: Bedside Glucose 152 mg/dL (70-110)
[2017-11-06] MEDS: guaiFENesin/Codeine 5 ML UDC 10 ML PO (18:51)
[2017-11-06] MEDS: Atorvastatin Calcium 40 MG Tablet PO (22:22)
[2017-11-07] VITALS (21 sets, daily range): BP systolic 119–133; BP diastolic 72–77; PULSE 73–100; RESP 12–24; TEMP 36.6–36.9; O2SAT 92–96
[2017-11-07] MEDS: Ipratropium/Albuterol Sulfate 3 ML AMPUL.NEB INHALATION ×6 (03:30→23:05)
[2017-11-07] MEDS: 0.9% NaCl Peripheral Flush Adult/Peds IV ×2 (05:27→21:27)
[2017-11-07 06:51] LABS: Bedside Glucose 137 mg/dL (70-110)
--- NOTE | 2017-11-07 08:22 | PCM.PROGNOTE ---
Patient Problems: Active and Suspected Problems (Last Reviewed 10/27/17 @ 13:51 by Lizeth Clark) Acute and chronic respiratory failure with hypoxia (Acute) Acute exacerbation of COPD with asthma (Acute) Subjective: The patient was seen and examined, sitting up at the bedside in no acute distress. Reports minimal subjective improvement in his breathing. He is maintaining appropriate saturations on his baseline oxygen requirement of 4 L. Complains of productive cough of yellow sputum. Patient was positive for the human metapneumovirus, influenza was negative. Sputum preliminary culture showed 4+ gram-positive cocci, 2+ gram-negative rods, and 2+ gram-positive rods. No lab work to review over the last 48 hours. Objective: Clinical Impression(s) from Imaging Studies Chest X-Ray 11/04/17 08:47 IMPRESSION: Hyperinflation. Stable increased markings at the lung bases suggests possible scarring. Stable blunting of the left costophrenic angle. Electronically Signed: Sanchez Blood MD at 9:20 EST Tel [phone], Service support , Chest X-Ray 11/05/17 05:01 IMPRESSION: Normal x-ray examination of the chest. Electronically Signed: Shakira Baca MD at 6:34 EST Tel , Service support , - Physical Exam General: Alert, Oriented x3, Cooperative, No apparent distress, Well developed, - - No conversational dyspnea HEENT: Atraumatic, Normocephalic Oral: Moist Mucosa Neck: Supple, No Nodes, Trachea Midline Lungs: - - Severely diminished t/o, no appreciable rhonchi, wheezes, or rales. Cardiovascular: Regular rate, Regular Rhythm, Normal S1, Normal S2 Abdomen: Bowel Sounds Present, Soft, Non Tender, Non-Distended, Obese Extremities: No cyanosis, Capillary Refill Less than 3 Seconds, No Calf Tenderness, Clubbing, Edema Skin: No rashes, No breakdown Musculoskeletal: No Tenderness to Palpation of Joints or Extremities Lymphatic: No Cervical, Supraclavicular, or Inguinal Adenopathy Neurological: Cranial nerves II-XII grossly intact, Neuro grossly intact, Motor Exam 5/5 strength throughout Psych/Mental Status: Alert and oriented to time, place, person, mood and affect Vital Signs Temp Pulse Resp BP Pulse Ox 98.4 F 84 24 H 122/76 H 95 11/07/17 03:38 11/07/17 07:16 11/07/17 07:16 11/07/17 03:38 11/07/17 07:16 Oxygen Flow Rate 4 Oxygen Delivery Method Nasal Cannula Weight: 231 lb 4.238 oz Body Mass Index (BMI) 31.9 Intake and Output for Last 24 Hours 11/05/17 11/06/17 11/07/17 23:59 23:59 23:59 Intake Total 1453 / 1453 590 / 590 360 / 360 Output Total 550 / 550 1235 / 1235 800 / 800 Balance 903 / 903 -645 / -645 -440 / -440 Microbiology Past 72 Hours 11/04/17 21:15 Gram Stain - Final Sputum, Expectorated/Coughed Respiratory Culture - Preliminary 11/05/17 07:16 Respiratory Panel (PCR) - Final Mucosa - Nasopharyngeal Human [place] POC Glucose 11/07/17 11/06/17 11/06/17 06:47 17:33 11:30 POC Glucose 137 H 152 H 153 H Assessment/Plan Active and Suspected Problems (Last Reviewed 10/27/17 @ 13:51 by Lizeth Clark) Acute and chronic respiratory failure with hypoxia (Acute) Acute exacerbation of COPD with asthma (Acute) RECOMMENDATIONS: 1. Continue steroids, wean to oral tomorrow with taper at d/c 2. Agree with holding on antibiotics, initiate with fever only 3. Resume baseline medical therapy 4. BiPAP as needed, and with naps/nightly 5. Ambulatory pulse ox prior to discharge 6. Follow up in the pulmonary clinic within 2 weeks of discharge IMPRESSIONS: 1. Acute on chronic hypoxic and hypercarbic respiratory failure secondary to human Metapneumovirus Patient with advanced lung disease at baseline. Patient was last known FEV1 of 20% of predicted. Patient is responded well to supportive therapy. Steroids decreased 11/06. Continue with BiPAP rescue as necessary. Respiratory precautions. Ambulatory pulse ox prior to discharge and can follow-up in the pulmonary clinic in 2 weeks. 2. COPD exacerbation secondary to recent URI Patient had PFTs in May which showed severe partially reversible ventilatory defect. See #1. Unclear if patient has been compliant with home trilogy ventilator. Previous admission patient had brought this and it was nonfunctional. Patient does not report this is been fixed. Noncompliance with trilogy or oxygen therapy could lead to recurrent exacerbations. Patient did not make an attempt to contact our office prior to presenting for this exacerbation. We will required steroid at discharge. 3. CAD s/p PTCA/anxiety/hyperlipidemia/hypertension Complicates care, management, recovery, and prognosis. Management per hospitalist. This note was generated with [employer] dictation software. It may contain incorrect words, spelling, and punctuation that were not noted in checking the note before signing.
--- NOTE | 2017-11-07 08:27 | PN_ITS ---
Patient Problems: Active and Suspected Problems (Last Reviewed 10/27/17 @ 13:51 by Lizeth Clark) Acute and chronic respiratory failure with hypoxia (Acute) Acute exacerbation of COPD with asthma (Acute) Subjective: The patient was seen and examined, sitting up at the bedside in no acute distress. Reports minimal subjective improvement in his breathing. He is maintaining appropriate saturations on his baseline oxygen requirement of 4 L. Complains of productive cough of yellow sputum. Patient was positive for the human metapneumovirus, influenza was negative. Sputum preliminary culture showed 4+ gram-positive cocci, 2+ gram-negative rods, and 2+ gram-positive rods. No lab work to review over the last 48 hours. Objective: Clinical Impression(s) from Imaging Studies Chest X-Ray 11/04/17 08:47 IMPRESSION: Hyperinflation. Stable increased markings at the lung bases suggests possible scarring. Stable blunting of the left costophrenic angle. Electronically Signed: Sanchez Blood MD at 9:20 EST Tel [phone], Service support , Chest X-Ray 11/05/17 05:01 IMPRESSION: Normal x-ray examination of the chest. Electronically Signed: Shakira Baca MD at 6:34 EST Tel , Service support , - Physical Exam General: Alert, Oriented x3, Cooperative, No apparent distress, Well developed, - - No conversational dyspnea HEENT: Atraumatic, Normocephalic Oral: Moist Mucosa Neck: Supple, No Nodes, Trachea Midline Lungs: - - Severely diminished t/o, no appreciable rhonchi, wheezes, or rales. Cardiovascular: Regular rate, Regular Rhythm, Normal S1, Normal S2 Abdomen: Bowel Sounds Present, Soft, Non Tender, Non-Distended, Obese Extremities: No cyanosis, Capillary Refill Less than 3 Seconds, No Calf Tenderness, Clubbing, Edema Skin: No rashes, No breakdown Musculoskeletal: No Tenderness to Palpation of Joints or Extremities Lymphatic: No Cervical, Supraclavicular, or Inguinal Adenopathy Neurological: Cranial nerves II-XII grossly intact, Neuro grossly intact, Motor Exam 5/5 strength throughout Psych/Mental Status: Alert and oriented to time, place, person, mood and affect Vital Signs Temp Pulse Resp BP Pulse Ox 98.4 F 84 24 H 122/76 H 95 11/07/17 03:38 11/07/17 07:16 11/07/17 07:16 11/07/17 03:38 11/07/17 07:16 Oxygen Flow Rate 4 Oxygen Delivery Method Nasal Cannula Weight: 231 lb 4.238 oz Body Mass Index (BMI) 31.9 Intake and Output for Last 24 Hours 11/05/17 11/06/17 11/07/17 23:59 23:59 23:59 Intake Total 1453 / 1453 590 / 590 360 / 360 Output Total 550 / 550 1235 / 1235 800 / 800 Balance 903 / 903 -645 / -645 -440 / -440 Microbiology Past 72 Hours 11/04/17 21:15 Gram Stain - Final Sputum, Expectorated/Coughed Respiratory Culture - Preliminary 11/05/17 07:16 Respiratory Panel (PCR) - Final Mucosa - Nasopharyngeal Human [place] POC Glucose 11/07/17 11/06/17 11/06/17 06:47 17:33 11:30 POC Glucose 137 H 152 H 153 H Assessment/Plan Active and Suspected Problems (Last Reviewed 10/27/17 @ 13:51 by Lizeth Clark) Acute and chronic respiratory failure with hypoxia (Acute) Acute exacerbation of COPD with asthma (Acute) RECOMMENDATIONS: 1. Continue steroids, wean to oral tomorrow with taper at d/c 2. Agree with holding on antibiotics, initiate with fever only 3. Resume baseline medical therapy 4. BiPAP as needed, and with naps/nightly 5. Ambulatory pulse ox prior to discharge 6. Follow up in the pulmonary clinic within 2 weeks of discharge IMPRESSIONS: 1. Acute on chronic hypoxic and hypercarbic respiratory failure secondary to human Metapneumovirus Patient with advanced lung disease at baseline. Patient was last known FEV1 of 20% of predicted. Patient is responded well to supportive therapy. Steroids decreased 11/06. Continue with BiPAP rescue as necessary. Respiratory precautions. Ambulatory pulse ox prior to discharge and can follow-up in the pulmonary clinic in 2 weeks. 2. COPD exacerbation secondary to recent URI Patient had PFTs in May which showed severe partially reversible ventilatory defect. See #1. Unclear if patient has been compliant with home trilogy ventilator. Previous admission patient had brought this and it was nonfunctional. Patient does not report this is been fixed. Noncompliance with trilogy or oxygen therapy could lead to recurrent exacerbations. Patient did not make an attempt to contact our office prior to presenting for this exacerbation. We will required steroid at discharge. 3. CAD s/p PTCA/anxiety/hyperlipidemia/hypertension Complicates care, management, recovery, and prognosis. Management per hospitalist. This note was generated with [employer] dictation software. It may contain incorrect words, spelling, and punctuation that were not noted in checking the note before signing.
[2017-11-07] MEDS: Aspirin 81 MG TAB.CHEW PO (08:55)
[2017-11-07] MEDS: Multivitamins,Therapeutic Tablet 1 TABLET PO (08:55)
[2017-11-07] MEDS: Furosemide 40 MG Tablet PO ×2 (08:59→17:11)
[2017-11-07] MEDS: Enoxaparin 40 MG/0.4 ML Syringe SC (09:00)
[2017-11-07] MEDS: Clopidogrel Bisulfate 75 MG Tablet PO (09:01)
[2017-11-07] MEDS: Famotidine 20 MG Tablet PO ×2 (09:01→21:25)
[2017-11-07] MEDS: Metoprolol Tartrate 25 MG Tablet PO ×2 (09:02→21:25)
--- NOTE | 2017-11-07 11:33 | PCM.PN.HOSP ---
Patient Problems: Active and Suspected Problems (Last Reviewed 10/27/17 @ 13:51 by Lizeth Clark) Acute and chronic respiratory failure with hypoxia (Acute) Acute exacerbation of COPD with asthma (Acute) Subjective: Patient with no acute events overnight per self and per nursing report. Patient does feel as though is improved with less wheezing and improve respiratory status. Patient transitioned to as needed BiPAP therapy. Pulmonary team following who have evaluated patient prior and note that he is near his baseline although recommendation for 1 additional day of inpatient treatment with plan to transition to oral prednisone therapy following. Patient denies fevers, chills, nausea, emesis, abdominal pain, chest pain or worsened dyspnea. Objective: Physical Examination: General: awake, alert, oriented x 3 and cooperative, seated upright bedside, in no apparent distress. Skin: normal color, turgor, no icterus, cyanosis. HEENT: AT/NC, EOMI, PERRLA, proved mildly less dry MM. Lungs: Diminished BS throughout, > bases, mildly coarse/rhonchorous, mild effort, no current wheezing noted. Heart: Regular rate and rhythm; no gallop, rub audible. Abdomen: soft, obese, NTTP, ND, normal BS. Extremities: no cyanosis, clubbing, or edema. Neurological: patient awake, alert, oriented x 3; cognitive function intact; pupils equally reactive to light and accomodation; cranial nerves II-XII grossly normal, moving all 4 extremities, no focal deficits, strength severely globally decreased secondary to acute presentation. Psychiatric: affect appears fatigued, mildly irritable, no acute evidence of depressive or anxiety feelings. Vitals/I&O's: Vital Signs Temp Pulse Resp BP Pulse Ox 97.8 F 86 24 H 130/77 H 96 11/07/17 09:10 11/07/17 11:09 11/07/17 11:09 11/07/17 09:10 11/07/17 09:10 Oxygen Flow Rate 4 Oxygen Delivery Method Nasal Cannula Weight: 231 lb 4.238 oz Body Mass Index (BMI) 31.9 Intake and Output for Last 24 Hours 11/05/17 11/06/17 11/07/17 23:59 23:59 23:59 Intake Total 1453 / 1453 590 / 590 360 / 360 Output Total 550 / 550 1235 / 1235 800 / 800 Balance 903 / 903 -645 / -645 -440 / -440 Microbiology Past 72 Hours 11/04/17 21:15 Sputum, Expectorated/Coughed Gram Stain - Final 11/04/17 21:15 Sputum, Expectorated/Coughed Respiratory Culture - Preliminary 11/05/17 07:16 Mucosa - Nasopharyngeal Respiratory Panel (PCR) - Final Human [place] Laboratory Results 11/06/17 11:30: POC Glucose 153 H 11/06/17 17:33: POC Glucose 152 H 11/07/17 06:47: POC Glucose 137 H Current Medications Acetaminophen (Tylenol) 650 mg PO Q6H PRN PRN PRN Reason: Mild Pain (scale 0-3)/T>100.7 Albuterol Sulfate (Ventolin Aerosols) 2.5 mg INHALATION Q2H PRN PRN PRN Reason: SHORTNESS OF BREATH Albuterol/Ipratropium (Duoneb) 3 ml INHALATION Q4H.RT [facility] Last Admin: 11/07/17 11:09 Dose: 3 ml Aspirin (Aspirin, Baby) 81 mg PO DAILY@0800 [facility] Last Admin: 11/07/17 08:55 Dose: 81 mg Atorvastatin Calcium (Lipitor) 40 mg PO QHS [facility] Last Admin: 11/06/17 22:22 Dose: 40 mg Bupropion HCl (Wellbutrin) 100 mg PO BID [facility] Last Admin: 11/07/17 09:01 Dose: 100 mg Cholecalciferol (Vitamin D) 1,000 unit PO DAILYCM [facility] Last Admin: 11/07/17 08:59 Dose: 1,000 unit Clopidogrel Bisulfate (Plavix) 75 mg PO DAILY [facility] Last Admin: 11/07/17 09:01 Dose: 75 mg Dextrose (D50w Syringe) 0 gm IV X1 PRN; Protocol PRN Reason: Hypoglycemia Enoxaparin Sodium (Lovenox) 40 mg SC DAILY@1000 [facility] Last Admin: 11/07/17 09:00 Dose: 40 mg Famotidine (Pepcid) 20 mg PO BID [facility] Last Admin: 11/07/17 09:01 Dose: 20 mg Furosemide (Lasix) 40 mg PO BID@1000,1800 [facility] Last Admin: 11/07/17 08:59 Dose: 40 mg Glucagon () 1 mg IM .X1 PRN PRN Reason: Hypoglycemia Guaifenesin/Codeine Phosphate (Robitussin Ac) 10 ml PO Q6H PRN PRN PRN Reason: coughing fits Last Admin: 11/06/17 18:51 Dose: 10 ml Insulin Aspart (Novolog Flexpen (Bkc)) 0 units SC TIDAC [facility] PRN Reason: Protocol Last Admin: 11/07/17 07:41 Dose: Not Given Magnesium Hydroxide (Milk Of Magnesia) 30 ml PO DAILY PRN PRN PRN Reason: Constipation Metformin HCl (Glucophage) 500 mg PO QHS [facility] Last Admin: 11/06/17 22:22 Dose: 500 mg Metformin HCl (Glucophage) 750 mg PO DAILY@0800 [facility] Last Admin: 11/07/17 08:58 Dose: 750 mg Methylprednisolone (Solu-Medrol) 40 mg IV Q8 [facility] Last Admin: 11/07/17 05:27 Dose: 40 mg Metoprolol Tartrate (Lopressor (Beta Luisa)) 25 mg PO BID [facility] Last Admin: 11/07/17 09:02 Dose: 25 mg Multivitamins ([facility]itamin) [facility] Last Admin: 11/07/17 08:55 Dose: 1 tablet Ondansetron HCl (Zofran) 4 mg IV Q8H PRN PRN PRN Reason: Nausea Potassium Chloride (K-Dur) 20 meq [facility] Last Admin: 11/07/17 08:55 Dose: 20 meq Sodium Chloride () 5 - 30 ml IV UD PRN PRN Reason: SALINE FLUSH Last Admin: 11/07/17 05:27 Dose: 10 ml Assessment/Plan Active and Suspected Problems (Last Reviewed 10/27/17 @ 13:51 by Lizeth Clark) Acute and chronic respiratory failure with hypoxia (Acute) Acute exacerbation of COPD with asthma (Acute) The patient is a 57 y/o M w/ PMHx: Chronic COPD/Asthma w/ Chronic Hypoxic Respiratory Failure on q HS BIPAP, MICHELLE, CAD s/p PCI, HTN, HLD, Diastolic CHF, Obesity, GERD, Diabetes mellitus type II who presents to the [facility] ED on 11/04/17 w/ ongoing progressively worsening dyspnea, cough x 3 days. (1) Acute Hypoxic and Hypercarbic Respiratory failure on Chronic Hypoxic Respiratory Failure secondary to Acute on Chronic COPD exacerbation and Acute Human Metapneumo virus: Initially admitted to the ICU, maintained on BIPAP therapies w/ eventual transition to q HS and PRN, transitioned once clinically improved to PCU status, CXR w/ chronic changes, maintain on oxygen with wean as tolerated to home oxygen supplementation, continue ATC duonebs, PRN albuterol, IV methylprednisolone with prednisone transition planned 11/08/17 AM and possible discharge to home in AM if improved status, HOB, IS parameters. Per review of Dr. Mendez notes, noted PFTs in May which demonstrated severe partially reversible ventilatory defect with unclear compliance with home trilogy ventilator. (2) Diastolic CHF: Maintain on home aspirin, Plavix, statin, metoprolol, Lasix regimen. (3) CAD: s/p PCI. Will continue home regimen asa, statin, BB. LHC w/stenting to prox RCA 07/15. (4) Hypertension: Maintain on home regimen Lasix, metoprolol, PRN hydralazine. (5) Hyperlipidemia: Continue home statin regimen. (6) Diabetes mellitus type II: Hold oral home regimen, ADA diet, accu checks w/ ISS. (7) Obesity: Weight loss and lifestyle changes encouraged. (8) DVT Prophylaxis: SCDs, lovenox. Code Visit Inpatient E&M: 29036 Subs Hosp L2
[2017-11-07 11:36] LABS: Bedside Glucose 144 mg/dL (70-110)
[2017-11-07] MEDS: guaiFENesin/Codeine 5 ML UDC 10 ML PO (15:28)
[2017-11-07 17:21] LABS: Bedside Glucose 124 mg/dL (70-110)
[2017-11-07] MEDS: Atorvastatin Calcium 40 MG Tablet PO (21:25)
[2017-11-08] VITALS (14 sets, daily range): BP systolic 128–144; BP diastolic 68–78; PULSE 74–94; RESP 12–20; TEMP 36.6–37; O2SAT 80–97
[2017-11-08] MEDS: Ipratropium/Albuterol Sulfate 3 ML AMPUL.NEB INHALATION ×4 (03:19→15:12)
[2017-11-08 07:15] LABS: Bedside Glucose 92 mg/dL (70-110)
[2017-11-08] MEDS: Multivitamins,Therapeutic Tablet 1 TABLET PO (09:13)
[2017-11-08] MEDS: Aspirin 81 MG TAB.CHEW PO (09:15)
[2017-11-08] MEDS: Famotidine 20 MG Tablet PO (09:15)
[2017-11-08] MEDS: Clopidogrel Bisulfate 75 MG Tablet PO (09:15)
[2017-11-08] MEDS: Metoprolol Tartrate 25 MG Tablet PO (09:15)
[2017-11-08] MEDS: Furosemide 40 MG Tablet PO (09:15)
[2017-11-08] MEDS: Enoxaparin 40 MG/0.4 ML Syringe SC (09:16)
--- NOTE | 2017-11-08 10:18 | PCM.PROGNOTE ---
Patient Problems: Active and Suspected Problems (Last Reviewed 10/27/17 @ 13:51 by Lizeth Clark) Acute and chronic respiratory failure with hypoxia (Acute) Acute exacerbation of COPD with asthma (Acute) Subjective: Patient was seen and examined, no acute events overnight. Reports his breathing is unchanged, now coughing up green sputum periodically. He has been using Acapella. Complains of dyspnea on exertion. He is on his baseline 4 L oxygen requirement. - Physical Exam General: Alert, Oriented x3, Cooperative, No apparent distress, Well developed, Well nourished, - - No conversational dyspnea HEENT: Atraumatic, Normocephalic Oral: Moist Mucosa Neck: Supple, No Nodes, Trachea Midline Lungs: - - Poor air movement, no rhonchi, wheezes, or rales Cardiovascular: Regular rate, Regular Rhythm, Normal S1, Normal S2 Abdomen: Bowel Sounds Present, Soft, Non Tender, Non-Distended, Obese Extremities: No cyanosis, No edema, Clubbing Skin: No rashes Musculoskeletal: No Tenderness to Palpation of Joints or Extremities Lymphatic: No Cervical, Supraclavicular, or Inguinal Adenopathy Neurological: Neuro grossly intact Psych/Mental Status: Depressed, - - conversing appropriately Vital Signs Temp Pulse Resp BP Pulse Ox 97.9 F 85 20 H 128/68 H 91 11/08/17 09:10 11/08/17 09:15 11/08/17 09:10 11/08/17 09:10 11/08/17 09:10 Oxygen Flow Rate 4 Oxygen Delivery Method Nasal Cannula Weight: 231 lb 4.238 oz Body Mass Index (BMI) 31.9 Intake and Output for Last 24 Hours 11/06/17 11/07/17 11/08/17 23:59 23:59 23:59 Intake Total 590 / 590 1200 / 1200 135 / 135 Output Total 1235 / 1235 1500 / 1500 1050 / 1050 Balance -645 / -645 -300 / -300 -915 / -915 Microbiology Past 72 Hours 11/04/17 21:15 Gram Stain - Final Sputum, Expectorated/Coughed Respiratory Culture - Final 11/05/17 07:16 Respiratory Panel (PCR) - Final Mucosa - Nasopharyngeal Human [place] POC Glucose 11/08/17 11/07/17 11/07/17 07:03 17:10 11:32 POC Glucose 92 124 H 144 H Assessment/Plan Active and Suspected Problems (Last Reviewed 10/27/17 @ 13:51 by Lizeth Clark) Acute and chronic respiratory failure with hypoxia (Acute) Acute exacerbation of COPD with asthma (Acute) RECOMMENDATIONS: 1. Continue steroids, wean to oral steroids today with taper at d/c 2. Agree with holding on antibiotics, initiate with fever only 3. Resume baseline medical therapy 4. BiPAP as needed, and with naps/nightly 5. Ambulatory pulse ox prior to discharge 6. Follow up in the pulmonary clinic within 2 weeks of discharge IMPRESSIONS: 1. Acute on chronic hypoxic and hypercarbic respiratory failure secondary to human Metapneumovirus Patient with advanced lung disease at baseline. Patient was last known FEV1 of 20% of predicted. Patient is responded well to supportive therapy. Steroids decreased 11/06. Continue with BiPAP rescue as necessary. Respiratory precautions. Sputum culture no growth. Ambulatory pulse ox prior to discharge and can follow-up in the pulmonary clinic in 2 weeks. 2. COPD exacerbation secondary to recent URI Patient had PFTs in May which showed severe partially reversible ventilatory defect. See #1. Unclear if patient has been compliant with home trilogy ventilator. Previous admission patient had brought this and it was nonfunctional. Patient does not report this has been fixed. Noncompliance with trilogy or oxygen therapy could lead to recurrent exacerbations. Patient did not make an attempt to contact our office prior to presenting for this exacerbation. He will require a 12 day steroid taper at discharge. 3. CAD s/p PTCA/anxiety/hyperlipidemia/hypertension Complicates care, management, recovery, and prognosis. Management per hospitalist. This note was generated with [employer] dictation software. It may contain incorrect words, spelling, and punctuation that were not noted in checking the note before signing.
[2017-11-08 11:21] LABS: Bedside Glucose 186 mg/dL (70-110)
--- NOTE | 2017-11-08 11:53 | PCM.DC ---
- Discharge Diagnoses Current Active Problems: Current Active and Chronic Problems (Last Reviewed 10/27/17 @ 13:51 by Lizeth Clark) Acute and chronic respiratory failure with hypoxia (Acute) Acute exacerbation of COPD with asthma (Acute) (1) Acute Hypoxic and Hypercarbic Respiratory failure on Chronic Hypoxic Respiratory Failure secondary to Acute on Chronic COPD exacerbation and Human Metapneumo virus (2) Diastolic CHF (3) CAD (4) Hypertension (5) Hyperlipidemia (6) Diabetes mellitus type II (7) Obesity You will use the following diet at home:: Calorie/Carbohydrate Controlled (specify 1200, 1400, etc) Your food should be the consistency of: Regular Your liquids should be the consistency of: Regular/Thin Discharge Activity: - - Avoid aggressive activity until re-assessed per Pulmonary and cleared. Avoid COPD triggers. May resume sexual activity in: 10-14 days Weight Bearing Status: Weight bearing as tolerated Call your doctor if you observe: Fever of 101 or Higher, Inability to urinate, Inability to have a bowel movement, Shortness of breath - Avoid baseline., Dizziness, Fainting spells, Chest pain, Uncontrolled pain Instructions: What is COPD?, Chronic Lung Disease: Preventing Lung Infections, Airway Clearance: Coughing Techniques, Caring for Your Inhaler, Using an Inhaler Without a Spacer, Traveling with Oxygen, Using Oxygen Safely, Using a Nebulizer (Adult), ED URI Viral W Wheezing Allergies/Adverse Reactions: Allergies diazepam [From Valium] Adverse Reaction (Verified 11/04/17 08:51) Vomiting Medications to take at Discharge Aspirin [Aspirin, Baby] 81 mg PO DAILY@0800 10/04/14 Atorvastatin Calcium [Lipitor] 40 mg PO QHS 10/04/14 Cholecalciferol (VIT D3) [Vitamin D3] 1,000 unit PO DAILY 10/04/14 Clopidogrel Bisulfate [Plavix] 75 mg PO DAILY 10/04/14 Furosemide [Lasix] 40 mg PO BID 10/04/14 Multivitamins,Therapeutic [Multivitamin] 1 tab PO DAILY 10/04/14 Budesonide/Formoterol 160/4.5 [Symbicort 160/4.5 Mcg Inhaler (SP)] 2 puff INHALATION BID 02/24/15 Roflumilast [Daliresp] 500 mcg PO DAILY 02/24/15 Potassium Chloride [Klor-Con M10] 20 meq PO BID 04/29/15 Famotidine [Pepcid] 20 mg PO BID 08/01/15 Metformin HCl [Glucophage] 750 mg PO DAILY 08/01/15 Metformin HCl [Glucophage] 500 mg PO QHS 10/08/16 bupropion HCl 100 mg tablet 100 mg PO BID 10/25/17 metoprolol tartrate 25 mg tablet 25 mg PO BID #60 tab 10/27/17 Albuterol Aerosols [Ventolin Aerosols] 2.5 mg INHALATION Q2H PRN PRN #1 box 11/08/17 Guaifenesin/Codeine [Robitussin AC] 10 ml PO Q6H PRN PRN #4 oz 11/08/17 Ipratropium/Albuterol Sulfate [Duoneb] 3 ml INHALATION Q4H.RT #1 box 11/08/17 Oxygen, Home [Home Oxygen] 4 - 6 lpm NASAL CONT #1 11/08/17 Prednisone 10 mg PO DAILY #55 tab 11/08/17 The following prescriptions were given: Albuterol Aerosols [Ventolin Aerosols] 2.5 mg INHALATION Q2H PRN PRN #1 box PRN Reason: dyspnea, wheezing Ipratropium/Albuterol Sulfate [Duoneb] 3 ml INHALATION Q4H.RT #1 box Guaifenesin/Codeine [Robitussin AC] 10 ml PO Q6H PRN PRN #4 oz PRN Reason: coughing fits Oxygen, Home [Home Oxygen] 4 - 6 lpm NASAL CONT #1 Prednisone 10 mg PO DAILY #55 tab Primary Care Physician: Kenia Matthew MD [Primary Care Provider] - Please follow up with your Primary Care Physician in: Follow-up within 1-2 days for re-evaluation Please Follow Up With: Alec Golden DO When: Follow-up within 1-2 weeks. Proposed Discharge Date: 11/08/17
--- NOTE | 2017-11-08 11:57 | PCM.DC.SUM ---
Discharge Date and Diagnosis - Problem List Patient Problems: Active and Suspected Problems (Last Reviewed 10/27/17 @ 13:51 by Lizeth Clark) Acute and chronic respiratory failure with hypoxia (Acute) Acute exacerbation of COPD with asthma (Acute) Date of Admission: 11/04/17 Date of Discharge: 11/08/17 - Primary Discharge Diagnosis Active and Suspected Problems (Last Reviewed 10/27/17 @ 13:51 by Lizeth Clark) Acute and chronic respiratory failure with hypoxia (Acute) Acute exacerbation of COPD with asthma (Acute) (1) Acute Hypoxic and Hypercarbic Respiratory failure on Chronic Hypoxic Respiratory Failure secondary to Acute on Chronic COPD exacerbation and Acute Human Metapneumo virus (2) Diastolic CHF (3) CAD (4) Hypertension (5) Hyperlipidemia (6) Diabetes mellitus type II (7) Obesity - Secondary Discharge Diagnosis Chronic Problems (Last Reviewed 10/27/17 @ 13:51 by Lizeth Clark) Congestive heart failure (Chronic) Presence of stent in coronary artery (Chronic ~07/2006) [facility] w/stenting to prox RCA Atherosclerotic heart disease of telida coronary artery without angina pectoris (Chronic) [facility] w/stenting to prox RCA 07/15 COPD (chronic obstructive pulmonary disease) (Chronic) Hypertension (Chronic) Hyperlipidemia (Chronic) Hospital Course and Treatment Dr. Golden, ICU/Pulmonary Operations: None Procedures: EKG, - - BIPAP in the ICU. Summary of Care Provided: The patient is a 57 y/o M w/ PMHx: Chronic COPD/Asthma w/ Chronic Hypoxic Respiratory Failure on q HS BIPAP, MICHELLE, CAD s/p PCI, HTN, HLD, Diastolic CHF, Obesity, GERD, Diabetes mellitus type II who presented to the [facility] ED on 11/04/17 w/ ongoing progressively worsening dyspnea, cough x 3 days. ED evaluation and work-up notable for Acute Hypoxic and Hypercarbic Respiratory failure on Chronic Hypoxic Respiratory Failure secondary to Acute on Chronic COPD exacerbation and Acute Human Metapneumo virus. Patient initially admitted to the ICU, maintained on BIPAP therapies w/ eventual transition to q HS and PRN, transitioned once clinically improved to PCU status, CXR w/ chronic changes, maintained on oxygen 4L NC and 6L NC with exertion with oxygenation testing performed prior to discharge, continued ATC duonebs, PRN albuterol, IV methylprednisolone with prednisone transition upon discharge to home with prolonged taper. Per review of Dr. Mendez notes, noted PFTs in May demonstrated severe partially reversible ventilatory defect with unclear compliance with home trilogy ventilator with questionable compliance per discussion with Pulmonary staff. Patient discharged to home in stable condition, clearance per Pulmonary with steroid taper, aerosols, continued 4L at rest and 6L NC with exertion with early pulmonary and PCP follow-up. DAY OF DISCHARGE PROGRESS NOTE: Subjective: Patient without acute event overnight per self and nursing report. Oxygenation trial performed prior to discharge with noted oxygenation on room air without exertion 84%, ambulate on room air 80%, ambulation with oxygen 91% on 4L NC with rest and 93% on 6 L with exertion. Home oxygen alteration with 4-6 L requested per CM/SW prior to discharge. Pulmonary evaluation prior to discharge and felt patient baseline currently, likely would need increased oxygen with exertion for several weeks secondary to his viral illness. Early follow-up arranged per Pulmonary office. Patient denies fever, chills, nausea, emesis, abdominal pain, chest pain or worsened dyspnea. Patient agreeable to discharge to home with home health with follow-up with primary care physician within 1-2 days in addition to Pulmonary within 1-2 weeks. Objective: T 97.9, heart rate 85, BP 120/68, respiratory rate 20, 91% on 4 L nasal cannula. Physical Examination: General: awake, alert, oriented x 3 and cooperative, seated upright at bedside, in no apparent distress. Skin: normal color, turgor, no icterus, cyanosis. HEENT: AT/NC, EOMI, PERRLA, MMM. Lungs: Improved BS, recent aerosol treatment, remains diminished, > bases, mild to moderate effort, no rales, rhonchi or wheezing currently. Heart: Regular rate and rhythm; no gallop, rub audible. Abdomen: soft, obese, NTTP, ND, normal BS. Extremities: no cyanosis, clubbing, or edema. Neurological: patient awake, alert, oriented x 3; cognitive function intact; pupils equally reactive to light and accomodation; cranial nerves II-XII grossly normal, moving all 4 extremities, no focal deficits, strength improved, walking in his room, moderately globally decreased secondary to acute presentation. Psychiatric: affect appears improved, less irritable, no acute evidence of depressive or anxiety feelings. Assessment and Plan: Please see hospital summary above. Discharge Activity: - - Avoid aggressive activity until re-assessed per Pulmonary and cleared. Avoid COPD triggers. May resume sexual activity in: 10-14 days Weight Bearing Status: Weight bearing as tolerated Call your doctor if you observe: Fever of 101 or Higher, Inability to urinate, Inability to have a bowel movement, Shortness of breath - Avoid baseline., Dizziness, Fainting spells, Chest pain, Uncontrolled pain Home Medications: Medications to take at Discharge Aspirin [Aspirin, Baby] 81 mg PO DAILY@0800 10/04/14 Atorvastatin Calcium [Lipitor] 40 mg PO QHS 10/04/14 Cholecalciferol (VIT D3) [Vitamin D3] 1,000 unit PO DAILY 10/04/14 Clopidogrel Bisulfate [Plavix] 75 mg PO DAILY 10/04/14 Furosemide [Lasix] 40 mg PO BID 10/04/14 Multivitamins,Therapeutic [Multivitamin] 1 tab PO DAILY 10/04/14 Budesonide/Formoterol 160/4.5 [Symbicort 160/4.5 Mcg Inhaler (SP)] 2 puff INHALATION BID 02/24/15 Roflumilast [Daliresp] 500 mcg PO DAILY 02/24/15 Potassium Chloride [Klor-Con M10] 20 meq PO BID 04/29/15 Famotidine [Pepcid] 20 mg PO BID 08/01/15 Metformin HCl [Glucophage] 750 mg PO DAILY 08/01/15 Metformin HCl [Glucophage] 500 mg PO QHS 10/08/16 bupropion HCl 100 mg tablet 100 mg PO BID 10/25/17 metoprolol tartrate 25 mg tablet 25 mg PO BID #60 tab 10/27/17 Albuterol Aerosols [Ventolin Aerosols] 2.5 mg INHALATION Q2H PRN PRN #1 box 11/08/17 Guaifenesin/Codeine [Robitussin AC] 10 ml PO Q6H PRN PRN #4 oz 11/08/17 Ipratropium/Albuterol Sulfate [Duoneb] 3 ml INHALATION Q4H.RT #1 box 11/08/17 Oxygen, Home [Home Oxygen] 4 - 6 lpm NASAL CONT #1 11/08/17 Prednisone 10 mg PO DAILY #55 tab 11/08/17 Following Prescrptions Were Given to Patient: Albuterol Aerosols [Ventolin Aerosols] 2.5 mg INHALATION Q2H PRN PRN #1 box PRN Reason: dyspnea, wheezing Ipratropium/Albuterol Sulfate [Duoneb] 3 ml INHALATION Q4H.RT #1 box Guaifenesin/Codeine [Robitussin AC] 10 ml PO Q6H PRN PRN #4 oz PRN Reason: coughing fits Oxygen, Home [Home Oxygen] 4 - 6 lpm NASAL CONT #1 Prednisone 10 mg PO DAILY #55 tab Primary Care Physician: Kenia Matthew MD [Primary Care Provider] - Please follow up with your Primary Care Physician in: Follow-up within 1-2 days for re-evaluation Please Follow Up With: Alec Golden, When: Follow-up within 1-2 weeks. Patient Instructions: What is COPD?, Chronic Lung Disease: Preventing Lung Infections, Airway Clearance: Coughing Techniques, Caring for Your Inhaler, Using an Inhaler Without a Spacer, Traveling with Oxygen, Using Oxygen Safely, Using a Nebulizer (Adult), ED URI Viral W Wheezing Disposition: Home with Home Health Minutes spent on discharge:: 35 Patient Condition:: Fair Meaningful Use Info Meaningful Use Diagnoses (Choose all that apply): None applicable Code Visit Inpatient E&M: 71405 Disch Hosp
--- NOTE | 2017-11-08 13:20 | CASEMGMT ---
Per Mahnaz RN, pt qualified for increased oxygen at home. Pt is normally on 4liters with a concentrator with a max of 5 liters. Oxygen level with ambulation on 4liters is 87%. New order for up to 6 liters as well as qualifying documentation faxed to [facility] at this time [phone] phone, fax. [facility] aware at this time will require a larger concentrator and that pt to be discharged today, voices understanding. Miguel VALENCIA CM
== END 2017-11-08 16:15 | disposition home or self-care (01) | DRG 189 ==
LOC: ED 11:08 → ICU 11:38 → PCU 11-05 12:37
PROVIDERS: Internal Medicine Critical Care Medicine; Emergency Provider Emergency Medicine; Family Provider Internal Medicine; PCP Internal Medicine; Visit Provider Family Medicine
DX: J96.21 Acute and chronic respiratory failure with hypoxia (principal); I50.32 Chronic diastolic (congestive) heart failure; Z99.81 Dependence on supplemental oxygen; I11.0 Hypertensive heart disease with heart failure; J44.1 Chronic obstructive pulmonary disease with (acute) exacerbation; J96.22 Acute and chronic respiratory failure with hypercapnia; B97.81 Human metapneumovirus as the cause of diseases classified elsewhere; E78.5 Hyperlipidemia, unspecified; I25.10 Atherosclerotic heart disease of native coronary artery without angina pectoris; Z79.899 Other long term (current) drug therapy; Z79.84 Long term (current) use of oral hypoglycemic drugs; Z87.891 Personal history of nicotine dependence; Z95.5 Presence of coronary angioplasty implant and graft; E66.9 Obesity, unspecified; Z68.31 Body mass index [BMI] 31.0-31.9, adult
CPT/HCPCS: 71045; 80048; 82803; 82962; 83735; 84100; 84484; 85025; 85027; 87070; 87205; 87633; 87641; 87804; 93005; 94002; 94003; 94640; 94667; 94668; 99251; 99285; J7030; A4216; G0463

== ENCOUNTER 2018-02-10 12:41 | Inpatient (IN) | payer MEDICARE, MEDICAID, SELFPAY ==
[2018-02-10] VITALS (18 sets, daily range): BP systolic 96–140; BP diastolic 56–83; PULSE 79–129; RESP 12–26; TEMP 36.8–39.6; O2SAT 92–100; BMI 33.7; BMI 33.8
--- NOTE | 2018-02-10 13:10 | EKG12_ITS ---
Test Reason : Blood Pressure : / mmHG Vent. Rate : 118 BPM Atrial Rate : 118 BPM P-R Int : 124 ms QRS Dur : 082 ms QT Int : 300 ms P-R-T Axes : 049 056 049 degrees QTc Int : 420 ms Sinus tachycardia Otherwise normal ECG Confirmed by ROMAN ROTHMAN, NAIF ([id number]), editor news VEE ALEXANDRA ([id number]) on 02/13/2018 1:59:02 PM Referred By: GRACIELA Confirmed By:NAIF OWENS MD
[2018-02-10] MEDS: Ipratropium/Albuterol Sulfate 3 ML AMPUL.NEB INHALATION ×2 (13:32→20:45)
[2018-02-10] MEDS: Albuterol 2.5 MG/3 ML VIAL.NEB. INHALATION ×3 (13:32→15:47)
--- NOTE | 2018-02-10 13:33 | RAD_ITS ---
STUDY: X-RAY CHEST REASON FOR EXAM: Male, 57 years old. SOB, cp TECHNIQUE: Single AP portable view of the chest. COMPARISON: November 05, 2017 FINDINGS: There is stable hyperexpansion of the lungs and bibasilar atelectasis. There are worsened prominent interstitial markings suggesting vascular congestion. There is no demonstrated pleural abnormality. There is stable enlargement of the cardiomediastinal silhouette. Normal visualized pulmonary arteries. Normal visualized aortic arch and descending thoracic aorta. Normal visualized thoracic spine. Normal visualized ribs, clavicles, and shoulders. There is no demonstrated abnormality of the visualized soft tissue structures of the upper abdomen. RAD/Chest 1 View (Portable) IMPRESSION: There are worsened prominent interstitial markings suggesting vascular congestion. Electronically Signed: Letitia Benedict MD at 13:52 EDT , Service support ,
[2018-02-10 13:48] LABS: Absolute Neutrophil Count 19.2 X10^3/uL (2.0-7.7); Basophil# 0.03 X10^3/uL; Basophil% 0.1 % (0-1); Eosinophil# 0.11 X10^3/uL; Eosinophils% 0.5 % (0-5); Hematocrit 43.4 % (40-54); Hemoglobin 12.3 g/dl (13.0-16.5); Lymphocyte % 5.8 % (19-41); Mean Corp Hgb Conc 28.3 g/gl (32-36); Mean Corpuscular Hgb 23.3 pg (27.0-32.0); Mean Corpuscular Volume 82.4 fL (80-94); Mean Platelet Vol. 9.4 fl (6.2-12.0); Monocyte# 1.74 X10^3/uL; Monocyte% 7.7 % (0-10); Neutrophil # 19.23 X10^3/uL (2.7-7.7); Neutrophil % 85.5 % (47-70); Platelet Count 432 K/mm3 (150-450); RBC Distribution Width CV 15.6 % (11.6-14.6); RBC Distribution Width SD 46.7 fl (35.1-43.9); Red Blood Count 5.27 M/mm3 (4.6-6.2); White Blood Count 22.5 K/mm3 (4.4-11.0)
[2018-02-10 13:50] LABS: ALB/GLOB Ratio 0.8 RATIO (0.9-2.4); AST(SGOT) 14 U/L (15-37); Alanine Aminotransfer ALT/SGPT 18 U/L (16-61); Albumin, Serum 3.7 g/dL (3.2-5.0); Alkaline Phosphatase 133 U/L (45-117); Anion Gap 4 (5-15); BUN 17 mg/dL (7-18); BUN/Creat Ratio 15.6 RATIO (10-20); Calcium,Total 8.9 mg/dL (8.5-10.1); Chloride 101 mmol/L (98-107); Creatinine, Serum 1.09 mg/dL (0.70-1.30); EST Glomerular Filtration Rate 74 mL/min (>60); Est Glom Filt Rate - Afr Amer 89 mL/min (>60); Estimated Creatinine Clearance 78.68 ml/min; Globulin 4.5 g/dL (2.2-4.2); Glucose 112 mg/dL (74-106); Potassium 3.9 mmol/L (3.5-5.1); Protein, Total 8.2 g/dL (6.4-8.2); Sodium Level 139 mmol/L (136-145)
[2018-02-10 14:01] LABS: Lactic Acid 1.6 mmol/L (0.4-2.0)
--- NOTE | 2018-02-10 14:01 | CT_ITS ---
STUDY: CTA CHEST REASON FOR EXAM: Male, 57 years old. Right sided chest pain since yesterday, smoker, hx [place] with stent, COPD, 4-6L home O2, diabetes and hypertension. RADIATION DOSAGE (If Supplied By Facility): CTDIvol = ( 9.99 ) mGy, DLP = ( 688.45 ) mGycm TECHNIQUE: The examination was performed with the intravenous administration of 100mL ml of Isovue 370 contrast material. Post-processing of the angiographic images was performed, with multiplanar reformation and 3D reconstruction. Individualized dose optimization techniques were used for this CT. COMPARISON: None. FINDINGS: There is heterogeneous enhancement of the pulmonary arteries limiting evaluation for pulmonary embolism. No PE is demonstrated of the pulmonary trunk or main right or left pulmonary arteries. Peripheral pulmonary emboli are not excluded. Normal thoracic aorta and visualized great vessels. There is no demonstrated aortic dissection. Normal heart and pericardium. Normal mediastinum. Normal hilar regions. Normal visualized trachea and bronchi. The lungs are well expanded. There are emphysematous changes of lungs. There is bullous disease of the lower lungs. There is mild diffuse bronchiectasis. There is an area of right upper lobe prominent interstitial markings. There is mild bilateral lower lobe atelectasis and scarring. Normal pleura. There is a left lateral upper abdominal wall partially imaged fat-containing hernia versus lipoma. There are degenerative changes of thoracic spine. Normal visualized upper abdomen. CT/CTA Chest W/WO Contrast IMPRESSION: There is heterogeneous enhancement of the pulmonary arteries limiting evaluation for pulmonary embolism. Peripheral pulmonary emboli are not excluded. There is chronic obstructive pulmonary disease. There is mild diffuse bronchiectasis. There is an area of right upper lobe prominent interstitial markings. There is a left lateral upper abdominal wall partially imaged fat-containing hernia versus lipoma. Electronically Signed: Letitia Benedict MD at 15:21 EDT , Service support ,
[2018-02-10 14:05] LABS: BNP,B-Type NATRIURETIC PEPTIDE 14.8 pg/mL (0-100)
[2018-02-10 14:06] LABS: Red Cell Morphology NORM C+C NORMAL (NORM C&C)
[2018-02-10 14:07] LABS: Differential Indicated SCAN CRITERIA MET; POSITIVE COUNT NO; POSITIVE DIFFERENTIAL YES; POSITIVE MORPHOLOGY NO
--- NOTE | 2018-02-10 15:26 | ED.DCSUM_ITS ---
- ER Visit Summary Date of Service: 02/10/18 Chief Complaint: Shortness of breath History of Present Illness: The patient is a 57 M is a known history of coronary artery disease and COPD. He is Dr. Keyes and Dr. Mendez. The patient states that he developed some right-sided chest pain this morning. He describes it as stabbing. He states he chronically has some yellow sputum and does not believe that that has changed. States he felt like he had a fever this morning. The patient wears home oxygen. Typical 4-6 L. Patient informs me that his history is in the computer and I should go look it up rather than ask him questions. Physical Examination: Temperature oral 100.1. Tachycardic and tachypneic. Gen: Well-nourished well-developed Head: Normocephalic atraumatic Eyes: Perrl EOMI ENT: TMs clear no rhinorrhea moist mucous membranes Neck: Supple no lymphadenopathy no JVD nontender CVS: Regular tachycardic rhythm no murmurs normal S1-S2 Respiratory: Neck clear to auscultation bilaterally but diminished chest nontender Abdomen: Soft nontender nondistended normal bowel sounds no masses Back: Nontender Extremity: Nontender no edema Skin: Normal color no rash Neuro: alert orientated ?3 Psych: Agitated Test Results: EKG shows sinus tach cardia rate of 118. White count 22.5. Lactic acid 1.6. Troponin negative. Chest x-ray showed possible vascular congestion but his nitric peptide is 14.8. CTA of the chest shows no evidence of PE or dissection. Shows advanced emphysematous changes. Blood cultures were obtained. Emergency Department Course and Treatment: Received breathing treatments and Solu-Medrol. Given his white count and low-grade temperature also gave azithromycin. Patient has been rather agitated at times sometimes he is screaming to be her down the hallway when I will see once is a glass of water. I gave some low-dose Haldol hopefully help calm. The patient's has remained tachycardic and we rechecked his temperature and is 103. I have added Rocephin as well as Tylenol. I will add IV fluids. Our plan will be admission. Impression: 1. COPD exacerbation 2. Chest pain This note was generated with [employer] software. It may contain incorrect words, spelling, and punctuation that were not noted in review of the chart prior to signing ED Disposition - Plan for ED Patient: Chief Complaint: Chest Pain Referrals: Kenia Matthew MD [Primary Care Provider] -
[2018-02-10] MEDS: MethylPREDNISolone 125 MG/2 ML Vial IV (15:47)
[2018-02-10] MEDS: Haloperidol Lactate 5 MG/ML Vial IM (15:47)
--- NOTE | 2018-02-10 16:14 | PCM.HP.STD ---
<Rl Mota - Last Filed: 02/10/18 16:14> Problem List (1) Sepsis Status: Acute (2) COPD exacerbation Status: Acute (3) Stage 4 very severe COPD by GOLD classification Status: Chronic (4) CAD (coronary artery disease) Status: Chronic (5) Type 2 diabetes mellitus Status: Chronic (6) Congestive heart failure Status: Chronic (7) MICHELLE (obstructive sleep apnea) Status: Chronic (8) Anxiety Status: Acute (9) Hypertension Status: Chronic (10) Hyperlipidemia Status: Chronic History of Present Illness Date of Admission: 02/10/18 Chief Complaint: SOB The patient is a 57 year old M with a hx of severe COPD, chronic hypoxic respiratory failure on 4lpm rest 6lpm with activity, MICHELLE, diastolic CHF, multiple hospitalizations for the same, DMt2, CAD prior stent, HLD, HTN, obesity, anxiety who presents to the ER with severe SOB. He developed this suddenly yesterday along with associated Right anterior wall chest pain. He denies sick contacts and denies a triggering event. He has had a cough with sputum production but has not looked at it. He cannot cough on demand. He is currently in the ER appearing severely dyspneic however is stable on his home O2 dose. He also reports subjective fevers and does indeed have a fever of 102 in the ER. He is tachycardic however does not feel racing, palpitations, or lightheadedness or dizziness. He is chronically on prednisone 10 mg per pulmonology office note, and is reportedly compliant now with triology and reportedly quit smoking in 2015 and is supposed to be evaluated for a lung transplant. He denies recent abx or acute steroid use. He denies abdominal pain, denies nausea, has had intermittent diarrhea over the past month and a half. He denies leg swelling. [] Past Medical History Past Medical History (Chronic Problems): Chronic Problems (Last Reviewed 02/02/18 @ 08:19 by Prema Louise) Tobacco abuse (Chronic) Stage 4 very severe COPD by GOLD classification (Chronic) CAD (coronary artery disease) (Chronic) Type 2 diabetes mellitus (Chronic) Congestive heart failure (Chronic) MICHELLE (obstructive sleep apnea) (Chronic) Presence of stent in coronary artery (Chronic ~07/2006) [facility] w/stenting to prox RCA Atherosclerotic heart disease of [place] coronary artery without angina pectoris (Chronic) [facility] w/stenting to prox RCA 07/15 COPD (chronic obstructive pulmonary disease) (Chronic) Hypertension (Chronic) Hyperlipidemia (Chronic) Allergies diazepam [From Valium] Adverse Reaction (Verified 11/11/17 08:02) Vomiting Home Medications: Ambulatory Orders Medication Instructions Recorded Aspirin [Aspirin, Baby] 81 mg PO DAILY@0800 10/04/14 Atorvastatin Calcium [Lipitor] 40 mg PO QHS 10/04/14 Cholecalciferol (VIT D3) [Vitamin 1,000 unit PO DAILY 10/04/14 D3] Clopidogrel Bisulfate [Plavix] 75 mg PO DAILY 10/04/14 Furosemide [Lasix] 40 mg PO BID 10/04/14 Multivitamins,Therapeutic 1 tab PO DAILY 10/04/14 [Multivitamin] Budesonide/Formoterol 160/4.5 2 puff INHALATION BID 02/24/15 [Symbicort 160/4.5 Mcg Inhaler (SP)] Roflumilast [Daliresp] 500 mcg PO DAILY 02/24/15 Potassium Chloride [Klor-Con M10] 20 meq PO BID 04/29/15 Famotidine [Pepcid] 20 mg PO BID 08/01/15 Metformin HCl [Glucophage] 750 mg PO DAILY 08/01/15 Metformin HCl [Glucophage] 500 mg PO QHS 10/08/16 bupropion HCl 100 mg tablet 100 mg PO BID 10/25/17 metoprolol tartrate 25 mg tablet 25 mg PO BID #60 tab 10/27/17 Albuterol Aerosols [Ventolin 2.5 mg INHALATION Q2H PRN PRN #1 11/08/17 Aerosols] box Ipratropium/Albuterol Sulfate 3 ml INHALATION Q4H.RT #1 box 11/08/17 [Duoneb] Oxygen, Home [Home Oxygen] 4 - 6 lpm NASAL CONT #1 11/08/17 albuterol sulfate HFA 90 2 puff INHALATION Q4H PRN g 11/11/17 mcg/actuation aerosol inhaler tiotropium bromide 18 mcg capsule 1 cap INHALATION QDAY 11/11/17 with inhalation device nystatin 100,000 unit/mL oral 5 ml MUCOUS MEMBRANE TID #250 ml 11/16/17 suspension prednisone 10 mg tablet 10 mg PO DAILY #30 tab 01/27/18 Surgical History: - - Rotator cuff surgery Psychiatric History: No pertinent psych hx Lives: With Family Smoking Status: Former smoker Tobacco Use: Non-smoker Alcohol: None Drugs: None - *Family History Maternal History Items: Clotting Disorder - Mother with history of PE following an ankle surgery Paternal History Items: Heart Disease Review of Systems Constitutional: Denies: Chills, Fever, Weight Change HEENT: Denies: Head Aches, Sinus Congestion, Sinus Drainage Cardiovascular: Denies: Chest Pain, Palpitations Respiratory: Reports: Cough, Shortness of Breath, Shortness of breath at rest, Shortness of breath upon exertion, Sputum production Gastrointestinal: Denies: Abdominal Pain, Nausea, Vomiting Genitourinary: Denies: Dysuria Musculoskeletal: Denies: Joint Pain, Joint Tenderness Skin: Denies: Rash, Wounds Neurological: Denies: Numbness, Tingling, Focal weakness Psychiatric: Denies: Anxiety, Depression, Homicidal Ideations, Suicidal Ideations Hematologic/ Lymphatic: Denies: Easy Bruising, Easy Bleeding VTE Information - Inpt Only VTE Present on Admission: No VTE Mechan Device Prophylaxis: SCD's VTE Pharm Prophylaxis ordered?: Yes Patient Problems: Active and Suspected Problems (Last Reviewed 02/02/18 @ 08:19 by Prema Louise) COPD exacerbation (Acute) Sepsis (Acute) - Physical Exam General: Alert, Oriented x3, Cooperative HEENT: Atraumatic, PERRLA, EOMI, Normocephalic Neck: Supple, No JVD, Negative Carotid Bruits Lungs: Diminished Cardiovascular: Regular rate, No murmurs Abdomen: Bowel Sounds Present, Soft, Non Tender Extremities: No edema, Capillary Refill Less than 3 Seconds Skin: No rashes, No breakdown Musculoskeletal: No Tenderness to Palpation of Joints or Extremities Neurological: Cranial nerves II-XII grossly intact Psych/Mental Status: Normal Affect, Appropriate, Alert and oriented to time, place, person, mood and affect Vital Signs Temp Pulse Resp BP Pulse Ox 100.1 F H 128 H 24 H 96/61 96 02/10/18 12:46 02/10/18 15:50 02/10/18 15:50 02/10/18 15:07 02/10/18 15:07 Oxygen Flow Rate (L/min) 4 Oxygen Delivery Method Nasal Cannula Weight: 109.6 kg Body Mass Index (BMI) 33.7 Laboratory Tests Past 24 Hrs 02/10/18 02/10/18 02/10/18 13:22 13:22 13:22 WBC 22.5 H RBC 5.27 Hgb 12.3 L Hct 43.4 MCV 82.4 MCH 23.3 L MCHC 28.3 L RDW 15.6 H RDW Differential 46.7 H Plt Count 432 MPV 9.4 Immature Gran % (Auto) 0.400 Neut % (Auto) 85.5 H Lymph % (Auto) 5.8 L [place] % (Auto) 7.7 Eos % (Auto) 0.5 Baso % (Auto) 0.1 Absolute Neuts (auto) 19.2 H Absolute Lymphs (auto) 1.30 Total Counted Not Reportable Diff Path Review May foll RBC Morphology NORM C+C Sodium 139 Potassium 3.9 Chloride 101 Carbon Dioxide 34.0 H Anion Gap 4 L BUN 17 Creatinine 1.09 Estim Creat Clear Calc 78.68 Est GFR (MDRD) Af Amer 89 Est GFR (MDRD) Non-Af 74 BUN/Creatinine Ratio 15.6 Glucose 112 H Lactic Acid 1.6 Calcium 8.9 Total Bilirubin 0.40 AST 14 L ALT 18 Alkaline Phosphatase 133 H Troponin I < 0.02 B-Natriuretic Peptide Total Protein 8.2 Albumin 3.7 Globulin 4.5 H Albumin/Globulin Ratio 0.8 L 02/10/18 13:22 WBC RBC Hgb Hct MCV MCH MCHC RDW RDW Differential Plt Count MPV Immature Gran % (Auto) Neut % (Auto) Lymph % (Auto) [place] % (Auto) Eos % (Auto) Baso % (Auto) Absolute Neuts (auto) Absolute Lymphs (auto) Total Counted Diff Path Review RBC Morphology Sodium Potassium Chloride Carbon Dioxide Anion Gap BUN Creatinine Estim Creat Clear Calc Est GFR (MDRD) Af Amer Est GFR (MDRD) Non-Af BUN/Creatinine Ratio Glucose Lactic Acid Calcium Total Bilirubin AST ALT Alkaline Phosphatase Troponin I B-Natriuretic Peptide 14.8 Total Protein Albumin Globulin Albumin/Globulin Ratio Assessment/Plan Active and Suspected Problems (Last Reviewed 02/02/18 @ 08:19 by Prema Louise) COPD exacerbation (Acute) Sepsis (Acute) 1. Acute sepsis 2/2 bronchiectasis with fever 103.2, leukocytosis, tachycardia, tachypnea - place patient on IV levaquin and consult His mold design engineer Dr. Mendez. CTA cannot rule out peripheral PE, will defer further testing until seen by pulm. He does have right sided chest pain but this could be infectious etiology. EKG shows sinus tachy. Add mucinex, PEP therapy, elevate HOB, encourage cough, deep breathing. Initially somewhat low BP but improved with IV fluids. CO2 is mildly increased with slightly low anion gap. Recently here with human metapneumovirus, and last year rhinovirus. 2. Acute COPD exacerbation - baseline 10 mg prednisone, start solumedrol, duonebs, IS, roflumilast. Last seen in pulmonology office 02/02/18 at that time reports he was not having difficulties. 3. Chronic hypoxic respiratory failure - baseline 4 at rest 6 with exertion - at baseline. 4. MICHELLE - on trilogy at home, will need bipap at night. 5.Chronic diastolic CHF - no peripheral edema, BNP negative. Hold AM lasix with borderline BP. 6. HTN - running low, hold orals and restart if appropriate 7. Anxiety - wellbutrin 8. Chronic anemia - mild, normocytic. trend. 9. CAD - prior PTCA and currently with CP. EKG sinus tachy and troponin negative. Maintain on tele. Maintain asa/plavix/statin/metoprolol. 10. T2DM - hold orals. SSI. DVT ppx: lovenox 40 sq for now, await pulmonology input regarding PE. This patient was seen by Rl Mota PA-C under the supervision of Doctor Eron. <Ed Littlejohn - Last Filed: 02/10/18 17:38> History of Present Illness Seen and examined. Patient is very short of breath, tachypneic and hypoxic in ER. He had high temperature, 103.2 Fahrenheit. As mentioned above, he has known history of severe COPD, chronic hypoxic respiratory failure on 4 L of oxygen, heart failure, coronary artery disease and bronchiectasis. BiPAP ordered in the ER. [] Past Medical History Allergies diazepam [From Valium] Adverse Reaction (Verified 11/11/17 08:02) Vomiting - Physical Exam Lungs: Diminished, Short of Breath, Tachypneic, Using Accessory Muscles, Wheezes Cardiovascular: Normal S1, Normal S2, No murmurs, Tachycardic Abdomen: Non-Distended Extremities: No edema Musculoskeletal: Arthritic Changes, Muscle Wasting Neurological: Cranial nerves II-XII grossly intact Vital Signs Temp Pulse Resp BP Pulse Ox 98.4 F 116 H 24 H 114/76 94 02/10/18 17:17 02/10/18 17:17 02/10/18 17:17 02/10/18 17:17 02/10/18 17:17 Oxygen Flow Rate (L/min) 5 Oxygen Delivery Method Nasal Cannula Laboratory Tests Past 24 Hrs 02/10/18 16:35 Urine Color Pending Urine Clarity Pending Urine pH Pending Ur Specific [place] Pending Urine Protein Pending Urine Glucose (UA) Pending Urine Ketones Pending Urine Occult Blood Pending Urine Nitrite Pending Urine Bilirubin Pending Urine Urobilinogen Pending Ur Leukocyte Esterase Pending Urine RBC Pending Urine WBC Pending Ur Squamous Epith Cells Pending Urine Bacteria Pending Urine Mucus Pending Assessment/Plan This patient was seen in conjunction with Rl GARCIAS. I have independently interviewed and examined the patient and reviewed pertinent history, examination findings, laboratory and plan of management. I have reviewed the note and agree with the documented findings with the few additional points. In brief, patient is admitted for high fever, short of breath, tachypneic and hypoxic in ER. He had high temperature, 103.2 Fahrenheit. ABG and BiPAP ordered in the ER. Patient is started on IV Levaquin as mentioned above. Consult his mold design engineer Dr. Mendez. His assessment is consistent with acute on chronic combined hypoxic and hypercarbic respiratory failure due to sepsis secondary to bronchiectasis. CT angiogram showed right upper lobe prominent interstitial markings, therefore probability bronchopneumonia. I have discussed my assessment with Rl GARCIAS and orders have been reviewed. Code Visit Inpatient E&M: 74052 Init Hosp L3
[2018-02-10] MEDS: Acetaminophen 500 MG Tablet 1000 MG PO (16:20)
--- NOTE | 2018-02-10 16:22 | CM.ED ---
CM INITIAL ASSESSMENT: Patient is currently in the ED. No family present, at bedside, at this time. Patient agreeable to interview. Home: Patient lives in a mobile home with family. No change since previous visits. HHS/Aides: Patient denies ever having. Patient states his takes care of him. DME: Patient states he has a power lift chair. He also has a walker/cane, but does not need to use. Oxygen: Patient states he is supposed to use 4L continuously, but has only been using 3L. Per CM notes in October, patient had an updated prescription sent in for up to 6L continuous oxygen at home. Pharmacy: [facility] in [place] Advance Directives: Denies having and declines assistance at this time. PCP: Kenia Matthew Specialists: Zac Mendez and Aguila Keyes DC Plan: Anticipate DC to home, no needs. I did discuss palliative care with the patient. He quickly states that his manages his care and does not appear interested at this time. CM will continue to follow for safe and effective discharge planning.
--- NOTE | 2018-02-10 16:30 | HP.PCM_ITS ---
<Rl Mota - Last Filed: 02/10/18 16:14> Problem List (1) Sepsis Status: Acute (2) COPD exacerbation Status: Acute (3) Stage 4 very severe COPD by GOLD classification Status: Chronic (4) CAD (coronary artery disease) Status: Chronic (5) Type 2 diabetes mellitus Status: Chronic (6) Congestive heart failure Status: Chronic (7) MICHELLE (obstructive sleep apnea) Status: Chronic (8) Anxiety Status: Acute (9) Hypertension Status: Chronic (10) Hyperlipidemia Status: Chronic History of Present Illness Date of Admission: 02/10/18 Chief Complaint: SOB The patient is a 57 year old M with a hx of severe COPD, chronic hypoxic respiratory failure on 4lpm rest 6lpm with activity, MICHELLE, diastolic CHF, multiple hospitalizations for the same, DMt2, CAD prior stent, HLD, HTN, obesity, anxiety who presents to the ER with severe SOB. He developed this suddenly yesterday along with associated Right anterior wall chest pain. He denies sick contacts and denies a triggering event. He has had a cough with sputum production but has not looked at it. He cannot cough on demand. He is currently in the ER appearing severely dyspneic however is stable on his home O2 dose. He also reports subjective fevers and does indeed have a fever of 102 in the ER. He is tachycardic however does not feel racing, palpitations, or lightheadedness or dizziness. He is chronically on prednisone 10 mg per pulmonology office note, and is reportedly compliant now with triology and reportedly quit smoking in 2015 and is supposed to be evaluated for a lung transplant. He denies recent abx or acute steroid use. He denies abdominal pain , denies nausea, has had intermittent diarrhea over the past month and a half. He denies leg swelling. [] Past Medical History Past Medical History (Chronic Problems): Chronic Problems (Last Reviewed 02/02/18 @ 08:19 by Prema Louise) Tobacco abuse (Chronic) Stage 4 very severe COPD by GOLD classification (Chronic) CAD (coronary artery disease) (Chronic) Type 2 diabetes mellitus (Chronic) Congestive heart failure (Chronic) MICHELLE (obstructive sleep apnea) (Chronic) Presence of stent in coronary artery (Chronic ~07/2006) [facility] w/stenting to prox RCA Atherosclerotic heart disease of [place] coronary artery without angina pectoris (Chronic) [facility] w/stenting to prox RCA 07/15 COPD (chronic obstructive pulmonary disease) (Chronic) Hypertension (Chronic) Hyperlipidemia (Chronic) Allergies diazepam [From Valium] Adverse Reaction (Verified 11/11/17 08:02) Vomiting Home Medications: Ambulatory Orders Medication Instructions Recorded Aspirin [Aspirin, Baby] 81 mg PO DAILY@0800 10/04/14 Atorvastatin Calcium [Lipitor] 40 mg PO QHS 10/04/14 Cholecalciferol (VIT D3) [Vitamin 1,000 unit PO DAILY 10/04/14 D3] Clopidogrel Bisulfate [Plavix] 75 mg PO DAILY 10/04/14 Furosemide [Lasix] 40 mg PO BID 10/04/14 Multivitamins,Therapeutic 1 tab PO DAILY 10/04/14 [Multivitamin] Budesonide/Formoterol 160/4.5 2 puff INHALATION BID 02/24/15 [Symbicort 160/4.5 Mcg Inhaler (SP)] Roflumilast [Daliresp] 500 mcg PO DAILY 02/24/15 Potassium Chloride [Klor-Con M10] 20 meq PO BID 04/29/15 Famotidine [Pepcid] 20 mg PO BID 08/01/15 Metformin HCl [Glucophage] 750 mg PO DAILY 08/01/15 Metformin HCl [Glucophage] 500 mg PO QHS 10/08/16 bupropion HCl 100 mg tablet 100 mg PO BID 10/25/17 metoprolol tartrate 25 mg tablet 25 mg PO BID #60 tab 10/27/17 Albuterol Aerosols [Ventolin 2.5 mg INHALATION Q2H PRN PRN #1 11/08/17 Aerosols] box Ipratropium/Albuterol Sulfate 3 ml INHALATION Q4H.RT #1 box 11/08/17 [Duoneb] Oxygen, Home [Home Oxygen] 4 - 6 lpm NASAL CONT #1 11/08/17 albuterol sulfate HFA 90 2 puff INHALATION Q4H PRN g 11/11/17 mcg/actuation aerosol inhaler tiotropium bromide 18 mcg capsule 1 cap INHALATION QDAY 11/11/17 with inhalation device nystatin 100,000 unit/mL oral 5 ml MUCOUS MEMBRANE TID #250 ml 11/16/17 suspension prednisone 10 mg tablet 10 mg PO DAILY #30 tab 01/27/18 Surgical History: - - Rotator cuff surgery Psychiatric History: No pertinent psych hx Lives: With Family Smoking Status: Former smoker Tobacco Use: Non-smoker Alcohol: None Drugs: None - *Family History Maternal History Items: Clotting Disorder - Mother with history of PE following an ankle surgery Paternal History Items: Heart Disease Review of Systems Constitutional: Denies: Chills, Fever, Weight Change HEENT: Denies: Head Aches, Sinus Congestion, Sinus Drainage Cardiovascular: Denies: Chest Pain, Palpitations Respiratory: Reports: Cough, Shortness of Breath, Shortness of breath at rest, Shortness of breath upon exertion, Sputum production Gastrointestinal: Denies: Abdominal Pain, Nausea, Vomiting Genitourinary: Denies: Dysuria Musculoskeletal: Denies: Joint Pain, Joint Tenderness Skin: Denies: Rash, Wounds Neurological: Denies: Numbness, Tingling, Focal weakness Psychiatric: Denies: Anxiety, Depression, Homicidal Ideations, Suicidal Ideations Hematologic/ Lymphatic: Denies: Easy Bruising, Easy Bleeding VTE Information - Inpt Only VTE Present on Admission: No VTE Mechan Device Prophylaxis: SCD's VTE Pharm Prophylaxis ordered?: Yes Patient Problems: Active and Suspected Problems (Last Reviewed 02/02/18 @ 08:19 by Prema Louise ) COPD exacerbation (Acute) Sepsis (Acute) - Physical Exam General: Alert, Oriented x3, Cooperative HEENT: Atraumatic, PERRLA, EOMI, Normocephalic Neck: Supple, No JVD, Negative Carotid Bruits Lungs: Diminished Cardiovascular: Regular rate, No murmurs Abdomen: Bowel Sounds Present, Soft, Non Tender Extremities: No edema, Capillary Refill Less than 3 Seconds Skin: No rashes, No breakdown Musculoskeletal: No Tenderness to Palpation of Joints or Extremities Neurological: Cranial nerves II-XII grossly intact Psych/Mental Status: Normal Affect, Appropriate, Alert and oriented to time, place, person, mood and affect Vital Signs Temp Pulse Resp BP Pulse Ox 100.1 F H 128 H 24 H 96/61 96 02/10/18 12:46 02/10/18 15:50 02/10/18 15:50 02/10/18 15:07 02/10/18 15:07 Oxygen Flow Rate (L/min) 4 Oxygen Delivery Method Nasal Cannula Weight: 109.6 kg Body Mass Index (BMI) 33.7 Laboratory Tests Past 24 Hrs 02/10/18 02/10/18 02/10/18 13:22 13:22 13:22 WBC 22.5 H RBC 5.27 Hgb 12.3 L Hct 43.4 MCV 82.4 MCH 23.3 L MCHC 28.3 L RDW 15.6 H RDW Differential 46.7 H Plt Count 432 MPV 9.4 Immature Gran % (Auto) 0.400 Neut % (Auto) 85.5 H Lymph % (Auto) 5.8 L [place] % (Auto) 7.7 Eos % (Auto) 0.5 Baso % (Auto) 0.1 Absolute Neuts (auto) 19.2 H Absolute Lymphs (auto) 1.30 Total Counted Not Reportable Diff Path Review May foll RBC Morphology NORM C+C Sodium 139 Potassium 3.9 Chloride 101 Carbon Dioxide 34.0 H Anion Gap 4 L BUN 17 Creatinine 1.09 Estim Creat Clear Calc 78.68 Est GFR (MDRD) Af Amer 89 Est GFR (MDRD) Non-Af 74 BUN/Creatinine Ratio 15.6 Glucose 112 H Lactic Acid 1.6 Calcium 8.9 Total Bilirubin 0.40 AST 14 L ALT 18 Alkaline Phosphatase 133 H Troponin I < 0.02 B-Natriuretic Peptide Total Protein 8.2 Albumin 3.7 Globulin 4.5 H Albumin/Globulin Ratio 0.8 L 02/10/18 13:22 WBC RBC Hgb Hct MCV MCH MCHC RDW RDW Differential Plt Count MPV Immature Gran % (Auto) Neut % (Auto) Lymph % (Auto) [place] % (Auto) Eos % (Auto) Baso % (Auto) Absolute Neuts (auto) Absolute Lymphs (auto) Total Counted Diff Path Review RBC Morphology Sodium Potassium Chloride Carbon Dioxide Anion Gap BUN Creatinine Estim Creat Clear Calc Est GFR (MDRD) Af Amer Est GFR (MDRD) Non-Af BUN/Creatinine Ratio Glucose Lactic Acid Calcium Total Bilirubin AST ALT Alkaline Phosphatase Troponin I B-Natriuretic Peptide 14.8 Total Protein Albumin Globulin Albumin/Globulin Ratio Assessment/Plan Active and Suspected Problems (Last Reviewed 02/02/18 @ 08:19 by Prema Louise ) COPD exacerbation (Acute) Sepsis (Acute) 1. Acute sepsis 2/2 bronchiectasis with fever 103.2, leukocytosis, tachycardia, tachypnea - place patient on IV levaquin and consult His automotive fuel injection servicer Dr. Mendez. CTA cannot rule out peripheral PE, will defer further testing until seen by pulm. He does have right sided chest pain but this could be infectious etiology. EKG shows sinus tachy. Add mucinex, PEP therapy, elevate HOB, encourage cough, deep breathing. Initially somewhat low BP but improved with IV fluids. CO2 is mildly increased with slightly low anion gap. Recently here with human metapneumovirus, and last year rhinovirus. 2. Acute COPD exacerbation - baseline 10 mg prednisone, start solumedrol, duonebs, IS, roflumilast. Last seen in pulmonology office 02/02/18 at that time reports he was not having difficulties. 3. Chronic hypoxic respiratory failure - baseline 4 at rest 6 with exertion - at baseline. 4. MICHELLE - on trilogy at home, will need bipap at night. 5.Chronic diastolic CHF - no peripheral edema, BNP negative. Hold AM lasix with borderline BP. 6. HTN - running low, hold orals and restart if appropriate 7. Anxiety - wellbutrin 8. Chronic anemia - mild, normocytic. trend. 9. CAD - prior PTCA and currently with CP. EKG sinus tachy and troponin negative. Maintain on tele. Maintain asa/plavix/statin/metoprolol. 10. T2DM - hold orals. SSI. DVT ppx: lovenox 40 sq for now, await pulmonology input regarding PE. This patient was seen by Rl Mota PA-C under the supervision of Doctor Eron. <Ed Littlejohn - Last Filed: 02/10/18 17:38> History of Present Illness Seen and examined. Patient is very short of breath, tachypneic and hypoxic in ER. He had high temperature, 103.2 Fahrenheit. As mentioned above, he has known history of severe COPD, chronic hypoxic respiratory failure on 4 L of oxygen, heart failure , coronary artery disease and bronchiectasis. BiPAP ordered in the ER. [] Past Medical History Allergies diazepam [From Valium] Adverse Reaction (Verified 11/11/17 08:02) Vomiting - Physical Exam Lungs: Diminished, Short of Breath, Tachypneic, Using Accessory Muscles, Wheezes Cardiovascular: Normal S1, Normal S2, No murmurs, Tachycardic Abdomen: Non-Distended Extremities: No edema Musculoskeletal: Arthritic Changes, Muscle Wasting Neurological: Cranial nerves II-XII grossly intact Vital Signs Temp Pulse Resp BP Pulse Ox 98.4 F 116 H 24 H 114/76 94 02/10/18 17:17 02/10/18 17:17 02/10/18 17:17 02/10/18 17:17 02/10/18 17:17 Oxygen Flow Rate (L/min) 5 Oxygen Delivery Method Nasal Cannula Laboratory Tests Past 24 Hrs 02/10/18 16:35 Urine Color Pending Urine Clarity Pending Urine pH Pending Ur Specific [place] Pending Urine Protein Pending Urine Glucose (UA) Pending Urine Ketones Pending Urine Occult Blood Pending Urine Nitrite Pending Urine Bilirubin Pending Urine Urobilinogen Pending Ur Leukocyte Esterase Pending Urine RBC Pending Urine WBC Pending Ur Squamous Epith Cells Pending Urine Bacteria Pending Urine Mucus Pending Assessment/Plan This patient was seen in conjunction with Rl GARCIAS. I have independently interviewed and examined the patient and reviewed pertinent history, examination findings, laboratory and plan of management. I have reviewed the note and agree with the documented findings with the few additional points. In brief, patient is admitted for high fever, short of breath, tachypneic and hypoxic in ER. He had high temperature, 103.2 Fahrenheit. ABG and BiPAP ordered in the ER. Patient is started on IV Levaquin as mentioned above. Consult his automotive fuel injection servicer Dr. Mendez. His assessment is consistent with acute on chronic combined hypoxic and hypercarbic respiratory failure due to sepsis secondary to bronchiectasis. CT angiogram showed right upper lobe prominent interstitial markings, therefore probability bronchopneumonia. I have discussed my assessment with Rl GARCIAS and orders have been reviewed. Code Visit Inpatient E&M: 04409 Init Hosp L3
[2018-02-10 16:43] LABS: Bacteria 0 SEEN /hpf (None Seen); Mucous, Urine 0 SEEN /hpf (<or=2+); Squamous Epithelial Cells - UA 0 SEEN /hpf (0-5); White Blood Cells 0 SEEN /hpf (0-5)
[2018-02-10] MEDS: 0.9% Normal Saline 1,000 ML 150 ML IV (17:15)
[2018-02-10 17:31] LABS: Color, Urine Yellow (Yellow); Glucose, Dipstick 50 mg/dl (Normal); Ketone-Dipstick Negative (Negative); Leukocyte Esterase-Dipstick Negative /ul (Negative); Nitrite-Dipstick Negative (Negative); Occult Blood-Urine 150 /ul (Negative); Protein-Dipstick 15 mg/dl (Negative); Specific Gravity, Urine 1.005 (1.002-1.030); Urine Bilirubin Dipstick Negative (Negative); Urine Clarity Clear (Clear); Urine Urobilinogen Normal (Normal)
[2018-02-10] MEDS: levoFLOXacin IV 750 MG/150 ML BAG 100 MG IV (18:03)
[2018-02-10] MEDS: Enoxaparin 40 MG/0.4 ML Syringe SC (18:03)
[2018-02-10 18:04] LABS: Red Blood Cells-Urine 0-5 SEEN /hpf (0-5)
[2018-02-10] MEDS: 0.9% NaCl Peripheral Flush Adult/Peds IV (18:05)
[2018-02-10] MEDS: 0.9% Normal Saline 1,000 ML 100 ML IV (20:17)
[2018-02-10 21:16] LABS: Allen Test POS; Base Excess 10 mmol/L (-2 to +2); Bicarbonate 35.6 mmol/L (22-26); Blood Gas Specimen Type ART; EPAP 8; FI02 30; IPAP 12; PO2 71 mmHG (75-100); RR 12; SITE L Radial; SO2 93 % (95-99); Time Given 2100; Total Carbon Dioxide 37 mmol/L; pCO2 61.8 mmHg (35-45); pH 7.37 (7.35-7.45)
[2018-02-10] MEDS: Famotidine 20 MG Tablet PO (22:42)
[2018-02-10] MEDS: guaiFENesin 1,200 MG Tablet 1200 MG PO (22:42)
[2018-02-10] MEDS: buPROPion 100 MG Tablet PO (22:42)
[2018-02-10] MEDS: Furosemide 40 MG Tablet PO (22:42)
[2018-02-10] MEDS: Atorvastatin Calcium 40 MG Tablet PO (22:42)
[2018-02-10] MEDS: MethylPREDNISolone 125 MG/2 ML Vial 60 MG IV (22:43)
[2018-02-10] MEDS: Metoprolol Tartrate 25 MG Tablet PO (22:43)
[2018-02-10 23:11] LABS: Bedside Glucose 164 mg/dL (70-110)
[2018-02-11] VITALS (26 sets, daily range): BP systolic 97–123; BP diastolic 61–82; PULSE 67–98; RESP 12–21; TEMP 36.2–36.6; O2SAT 94–99
[2018-02-11] MEDS: 0.9% Normal Saline 1,000 ML 100 ML IV (04:19)
[2018-02-11] MEDS: MethylPREDNISolone 125 MG/2 ML Vial 60 MG IV ×3 (06:38→22:18)
[2018-02-11] MEDS: Ipratropium/Albuterol Sulfate 3 ML AMPUL.NEB INHALATION ×5 (06:47→23:16)
[2018-02-11 06:51] LABS: Bedside Glucose 156 mg/dL (70-110)
[2018-02-11] MEDS: Aspirin 81 MG TAB.CHEW PO (07:54)
--- NOTE | 2018-02-11 08:07 | PCM.CONS.GEN ---
Problem List (1) COPD exacerbation Status: Acute (2) Stage 4 very severe COPD by GOLD classification Status: Chronic (3) CAD (coronary artery disease) Status: Chronic (4) Acute exacerbation of COPD with asthma Status: Acute (5) Old myocardial infarction Status: Acute (6) History of rotator cuff surgery Status: Resolved (7) Type 2 diabetes mellitus Status: Chronic (8) Congestive heart failure Status: Chronic Qualifiers: (9) MICHELLE (obstructive sleep apnea) Status: Chronic (10) Chronic respiratory failure with hypoxia and hypercapnia Status: Acute (11) Hypertension Status: Chronic Qualifiers: (12) Hyperlipidemia Status: Chronic Qualifiers: Reason for Consult Date of Consultation: 02/11/18 Reason for Consultation: COPD exacerbation History of Present Illness: The patient is a 57 year old M, with past medical history listed below and well-known to me from outpatient office, who presented to [facility] on 02/10/2018 secondary to increasing shortness of breath and chest pain on the right anterior chest wall. Patient is on 4 L nasal cannula at baseline and had reported a slight increase in cough with sputum production, but did not evaluate it. On presentation to the emergency room, patient was noted to be severely dyspneic with a fever of 39.6?C. Patient was placed on BiPAP therapy and transferred to the PCU for further monitoring. Overall, patient feels subjectively improved since presentation. Chest pain has resolved. Patient does report a chronic cough. Patient does use 10 mg of prednisone at baseline and is to present to [facility] later this month for evaluation of lung transplant. Patient has had intermittent diarrhea, but denies any lower extremity swelling, erythema or pain. Patient does use a trilogy ventilator at baseline and reports he has been compliant recently. Patient does not report any sick contacts at this time. Patient states his blood sugars have been well controlled. Patient has been compliant with outpatient medical therapy. Patient has not smoked in over 2 years. Past Medical History Past Medical History (Chronic Problems): Chronic Problems (Last Reviewed 02/02/18 @ 08:19 by Prema Louise) Tobacco abuse (Chronic) Stage 4 very severe COPD by GOLD classification (Chronic) CAD (coronary artery disease) (Chronic) Type 2 diabetes mellitus (Chronic) Congestive heart failure (Chronic) MICHELLE (obstructive sleep apnea) (Chronic) Presence of stent in coronary artery (Chronic ~07/2006) [facility] w/stenting to prox RCA Atherosclerotic heart disease of [place] coronary artery without angina pectoris (Chronic) [facility] w/stenting to prox RCA 07/15 COPD (chronic obstructive pulmonary disease) (Chronic) Hypertension (Chronic) Hyperlipidemia (Chronic) Allergies diazepam [From Valium] Adverse Reaction (Verified 11/11/17 08:02) Vomiting Home Medications: Ambulatory Orders Medication Instructions Recorded Aspirin [Aspirin, Baby] 81 mg PO DAILY@0800 10/04/14 Atorvastatin Calcium [Lipitor] 40 mg PO QHS 10/04/14 Cholecalciferol (VIT D3) [Vitamin 1,000 unit PO DAILY 10/04/14 D3] Clopidogrel Bisulfate [Plavix] 75 mg PO DAILY 10/04/14 Furosemide [Lasix] 40 mg PO BID 10/04/14 Multivitamins,Therapeutic 1 tab PO DAILY 10/04/14 [Multivitamin] Budesonide/Formoterol 160/4.5 2 puff INHALATION BID 02/24/15 [Symbicort 160/4.5 Mcg Inhaler (SP)] Roflumilast [Daliresp] 500 mcg PO DAILY 02/24/15 Potassium Chloride [Klor-Con M10] 20 meq PO BID 04/29/15 Famotidine [Pepcid] 20 mg PO BID 08/01/15 Metformin HCl [Glucophage] 750 mg PO DAILY 08/01/15 Metformin HCl [Glucophage] 500 mg PO QHS 10/08/16 bupropion HCl 100 mg tablet 100 mg PO BID 10/25/17 metoprolol tartrate 25 mg tablet 25 mg PO BID #60 tab 10/27/17 Albuterol Aerosols [Ventolin 2.5 mg INHALATION Q2H PRN PRN #1 11/08/17 Aerosols] box Ipratropium/Albuterol Sulfate 3 ml INHALATION Q4H.RT #1 box 11/08/17 [Duoneb] Oxygen, Home [Home Oxygen] 4 - 6 lpm NASAL CONT #1 11/08/17 albuterol sulfate HFA 90 2 puff INHALATION Q4H PRN g 11/11/17 mcg/actuation aerosol inhaler tiotropium bromide 18 mcg capsule 1 cap INHALATION DAILY 11/11/17 with inhalation device prednisone 10 mg tablet 10 mg PO DAILY #30 tab 01/27/18 Surgical History: - - Rotator cuff surgery Psychiatric History: No pertinent psych hx Lives: With Family Smoking Status: Former smoker Tobacco Use: Non-smoker Alcohol: None Drugs: None - *Family History Maternal History Items: Clotting Disorder - Mother with history of PE following an ankle surgery Paternal History Items: Heart Disease Review of Systems Comment: The HPI, otherwise negative ?10 systems Patient Problems: Active and Suspected Problems (Last Reviewed 02/02/18 @ 08:19 by Prema Louise) COPD exacerbation (Acute) Sepsis (Acute) Objective: All imaging was personally reviewed. Patient does have increased interstitial findings in the anterior aspect of the right upper lobe. Emphysematous and bronchiectatic changes are also noted. - Physical Exam General: Alert, Oriented x3, Cooperative, - - Mild conversational dyspnea. Appears older than stated age. Obese. HEENT: Atraumatic, PERRLA, EOMI, - - No scleral icterus or injection noted. Oral: Moist Mucosa, No Gingival or Mucosal Lesions/ Ulcerations Neck: Supple, No JVD, No Nodes, Trachea Midline Lungs: No rhonchi, No rales, Diminished, Wheezes, - - Symmetric expansion. No dullness to percussion. Cardiovascular: Regular rate, Regular Rhythm, Normal S1, Normal S2, No murmurs, No rub noted, No Gallop Abdomen: Bowel Sounds Present, Soft, Non Tender, Non-Distended, Obese Extremities: No cyanosis, No edema, Capillary Refill Less than 3 Seconds, Clubbing Skin: No rashes, No breakdown Musculoskeletal: No Tenderness to Palpation of Joints or Extremities, No Muscle Wasting Lymphatic: No Cervical, Supraclavicular, or Inguinal Adenopathy Neurological: Cranial nerves II-XII grossly intact, Neuro grossly intact, Motor Exam 5/5 strength throughout Psych/Mental Status: Alert and oriented to time, place, person, mood and affect Vital Signs Temp Pulse Resp BP Pulse Ox 36.6 C 87 17 98/82 H 96 02/11/18 07:00 02/11/18 07:00 02/11/18 07:00 02/11/18 07:00 02/11/18 07:00 Oxygen Flow Rate (L/min) 3 Oxygen Delivery Method Nasal Cannula Weight: 109.905 kg Body Mass Index (BMI) 33.7 Intake and Output for Last 24 Hours 02/09/18 02/10/18 02/11/18 23:59 23:59 23:59 Intake Total 893 / 893 658 / 658 Output Total 175 / 175 300 / 300 Balance 718 / 718 358 / 358 Microbiology Past 72 Hours 02/10/18 16:25 Influenza Types A,B Direct FA (JEOVANNY) - Final Mucosa - Nose Laboratory Tests Past 24 Hrs 02/10/18 02/10/18 16:35 21:08 Specimen Type ART Sample Site L Radial pH 7.37 Bicarbonate Actual 35.6 H POC Total CO2 37 Base Excess 10 H O2 Saturation 93 L O2 % 30 ABG pCO2 61.8 H ABG pO2 71 L Paco Test POS Respiration Rate 12 O2 Delivery Device Bi / C PAP EPAP 8 IPAP 12 Blood Gas Notified Whom HOSP Blood Gas Notified Time 2100 Urine Color Yellow Urine Clarity Clear Urine pH 7.0 Ur Specific [place] 1.005 Urine Protein 15 H Urine Glucose (UA) 50 H Urine Ketones Negative Urine Occult Blood 150 H Urine Nitrite Negative Urine Bilirubin Negative Urine Urobilinogen Normal Ur Leukocyte Esterase Negative Urine RBC 0-5 SEEN Urine WBC 0 SEEN Ur Squamous Epith Cells 0 SEEN Urine Bacteria 0 SEEN Urine Mucus 0 SEEN POC Glucose 02/11/18 02/10/18 06:44 22:51 POC Glucose 156 H 164 H Clinical Impression(s) from Imaging Studies Chest X-Ray 02/10/18 13:33 IMPRESSION: There are worsened prominent interstitial markings suggesting vascular congestion. Electronically Signed: Letitia Benedict MD at 13:52 EDT , Service support , Chest CTA 02/10/18 14:01 IMPRESSION: There is heterogeneous enhancement of the pulmonary arteries limiting evaluation for pulmonary embolism. Peripheral pulmonary emboli are not excluded. There is chronic obstructive pulmonary disease. There is mild diffuse bronchiectasis. There is an area of right upper lobe prominent interstitial markings. There is a left lateral upper abdominal wall partially imaged fat-containing hernia versus lipoma. Electronically Signed: Letitia Benedict MD at 15:21 EDT , Service support , Assessment/Plan Active and Suspected Problems (Last Reviewed 02/02/18 @ 08:19 by Prema Raman COPD exacerbation (Acute) Sepsis (Acute) RECOMMENDATIONS: 1. Consider obtaining viral panel 2. Empiric antibiotics pending culture results 3. Decrease IV steroids, continue bronchodilators and mucolytic 4. Increase activity as tolerated 5. BiPAP with sleep 6. Okay to discontinue stepdown status from my perspective. We will continue to follow. IMPRESSIONS: 1. Acute on chronic hypoxic and hypercarbic respiratory failure Patient with advanced lung disease at baseline. Patient was last known FEV1 of 20% of predicted. She responded well to BiPAP therapy initially. ABG shows compensated CO2 retention with adequate oxygenation. Patient has had a history of Ferrera pneumo virus in the past. Could consider obtaining repeat viral culture. Unclear if patient has a respiratory infection versus inability to compensate for high fever. Continue with BiPAP rescue as necessary. Likely okay to discontinue stepdown status from my perspective 2. COPD exacerbation Patient had PFTs in May which showed severe partially reversible ventilatory defect. See #1. Unclear if patient has been compliant with home trilogy ventilator. Patient did not make an attempt to contact our office prior to presenting for this exacerbation. Patient did have significant fever on presentation. Given advanced lung disease, it is possible the patient was just unable to tolerate the increased metabolic demand of fever. Multiple cultures are currently pending. 3. CAD s/pPTCA/anxiety/hyperlipidemia/hypertension Complicates care, management, recovery, and prognosis. Management per hospitalist. This note was generated with [employer] dictation software. It may contain incorrect words, spelling, and punctuation that were not noted in checking the note before signing. Code Visit Inpatient E&M: 51270 Init Hosp L3
--- NOTE | 2018-02-11 08:18 | CON.PCM_ITS ---
Problem List (1) COPD exacerbation Status: Acute (2) Stage 4 very severe COPD by GOLD classification Status: Chronic (3) CAD (coronary artery disease) Status: Chronic (4) Acute exacerbation of COPD with asthma Status: Acute (5) Old myocardial infarction Status: Acute (6) History of rotator cuff surgery Status: Resolved (7) Type 2 diabetes mellitus Status: Chronic (8) Congestive heart failure Status: Chronic Qualifiers: (9) MICHELLE (obstructive sleep apnea) Status: Chronic (10) Chronic respiratory failure with hypoxia and hypercapnia Status: Acute (11) Hypertension Status: Chronic Qualifiers: (12) Hyperlipidemia Status: Chronic Qualifiers: Reason for Consult Date of Consultation: 02/11/18 Reason for Consultation: COPD exacerbation History of Present Illness: The patient is a 57 year old M, with past medical history listed below and well- known to me from outpatient office, who presented to [facility] on 02/10/2018 secondary to increasing shortness of breath and chest pain on the right anterior chest wall. Patient is on 4 L nasal cannula at baseline and had reported a slight increase in cough with sputum production, but did not evaluate it. On presentation to the emergency room, patient was noted to be severely dyspneic with a fever of 39.6?C. Patient was placed on BiPAP therapy and transferred to the PCU for further monitoring. Overall, patient feels subjectively improved since presentation. Chest pain has resolved. Patient does report a chronic cough. Patient does use 10 mg of prednisone at baseline and is to present to [facility] later this month for evaluation of lung transplant. Patient has had intermittent diarrhea, but denies any lower extremity swelling, erythema or pain. Patient does use a trilogy ventilator at baseline and reports he has been compliant recently. Patient does not report any sick contacts at this time. Patient states his blood sugars have been well controlled. Patient has been compliant with outpatient medical therapy. Patient has not smoked in over 2 years. Past Medical History Past Medical History (Chronic Problems): Chronic Problems (Last Reviewed 02/02/18 @ 08:19 by Prema Louise) Tobacco abuse (Chronic) Stage 4 very severe COPD by GOLD classification (Chronic) CAD (coronary artery disease) (Chronic) Type 2 diabetes mellitus (Chronic) Congestive heart failure (Chronic) MICHELLE (obstructive sleep apnea) (Chronic) Presence of stent in coronary artery (Chronic ~07/2006) LHC w/stenting to prox RCA Atherosclerotic heart disease of [place] coronary artery without angina pectoris (Chronic) [facility] w/stenting to prox RCA 07/15 COPD (chronic obstructive pulmonary disease) (Chronic) Hypertension (Chronic) Hyperlipidemia (Chronic) Allergies diazepam [From Valium] Adverse Reaction (Verified 11/11/17 08:02) Vomiting Home Medications: Ambulatory Orders Medication Instructions Recorded Aspirin [Aspirin, Baby] 81 mg PO DAILY@0800 10/04/14 Atorvastatin Calcium [Lipitor] 40 mg PO QHS 10/04/14 Cholecalciferol (VIT D3) [Vitamin 1,000 unit PO DAILY 10/04/14 D3] Clopidogrel Bisulfate [Plavix] 75 mg PO DAILY 10/04/14 Furosemide [Lasix] 40 mg PO BID 10/04/14 Multivitamins,Therapeutic 1 tab PO DAILY 10/04/14 [Multivitamin] Budesonide/Formoterol 160/4.5 2 puff INHALATION BID 02/24/15 [Symbicort 160/4.5 Mcg Inhaler (SP)] Roflumilast [Daliresp] 500 mcg PO DAILY 02/24/15 Potassium Chloride [Klor-Con M10] 20 meq PO BID 04/29/15 Famotidine [Pepcid] 20 mg PO BID 08/01/15 Metformin HCl [Glucophage] 750 mg PO DAILY 08/01/15 Metformin HCl [Glucophage] 500 mg PO QHS 10/08/16 bupropion HCl 100 mg tablet 100 mg PO BID 10/25/17 metoprolol tartrate 25 mg tablet 25 mg PO BID #60 tab 10/27/17 Albuterol Aerosols [Ventolin 2.5 mg INHALATION Q2H PRN PRN #1 11/08/17 Aerosols] box Ipratropium/Albuterol Sulfate 3 ml INHALATION Q4H.RT #1 box 11/08/17 [Duoneb] Oxygen, Home [Home Oxygen] 4 - 6 lpm NASAL CONT #1 11/08/17 albuterol sulfate HFA 90 2 puff INHALATION Q4H PRN g 11/11/17 mcg/actuation aerosol inhaler tiotropium bromide 18 mcg capsule 1 cap INHALATION DAILY 11/11/17 with inhalation device prednisone 10 mg tablet 10 mg PO DAILY #30 tab 01/27/18 Surgical History: - - Rotator cuff surgery Psychiatric History: No pertinent psych hx Lives: With Family Smoking Status: Former smoker Tobacco Use: Non-smoker Alcohol: None Drugs: None - *Family History Maternal History Items: Clotting Disorder - Mother with history of PE following an ankle surgery Paternal History Items: Heart Disease Review of Systems Comment: The HPI, otherwise negative ?10 systems Patient Problems: Active and Suspected Problems (Last Reviewed 02/02/18 @ 08:19 by Prema Louise ) COPD exacerbation (Acute) Sepsis (Acute) Objective: All imaging was personally reviewed. Patient does have increased interstitial findings in the anterior aspect of the right upper lobe. Emphysematous and bronchiectatic changes are also noted. - Physical Exam General: Alert, Oriented x3, Cooperative, - - Mild conversational dyspnea. Appears older than stated age. Obese. HEENT: Atraumatic, PERRLA, EOMI, - - No scleral icterus or injection noted. Oral: Moist Mucosa, No Gingival or Mucosal Lesions/ Ulcerations Neck: Supple, No JVD, No Nodes, Trachea Midline Lungs: No rhonchi, No rales, Diminished, Wheezes, - - Symmetric expansion. No dullness to percussion. Cardiovascular: Regular rate, Regular Rhythm, Normal S1, Normal S2, No murmurs, No rub noted, No Gallop Abdomen: Bowel Sounds Present, Soft, Non Tender, Non-Distended, Obese Extremities: No cyanosis, No edema, Capillary Refill Less than 3 Seconds, Clubbing Skin: No rashes, No breakdown Musculoskeletal: No Tenderness to Palpation of Joints or Extremities, No Muscle Wasting Lymphatic: No Cervical, Supraclavicular, or Inguinal Adenopathy Neurological: Cranial nerves II-XII grossly intact, Neuro grossly intact, Motor Exam 5/5 strength throughout Psych/Mental Status: Alert and oriented to time, place, person, mood and affect Vital Signs Temp Pulse Resp BP Pulse Ox 36.6 C 87 17 98/82 H 96 02/11/18 07:00 02/11/18 07:00 02/11/18 07:00 02/11/18 07:00 02/11/18 07:00 Oxygen Flow Rate (L/min) 3 Oxygen Delivery Method Nasal Cannula Weight: 109.905 kg Body Mass Index (BMI) 33.7 Intake and Output for Last 24 Hours 02/09/18 02/10/18 02/11/18 23:59 23:59 23:59 Intake Total 893 / 893 658 / 658 Output Total 175 / 175 300 / 300 Balance 718 / 718 358 / 358 Microbiology Past 72 Hours 02/10/18 16:25 Influenza Types A,B Direct FA (JEOVANNY) - Final Mucosa - Nose Laboratory Tests Past 24 Hrs 02/10/18 02/10/18 16:35 21:08 Specimen Type ART Sample Site L Radial pH 7.37 Bicarbonate Actual 35.6 H POC Total CO2 37 Base Excess 10 H O2 Saturation 93 L O2 % 30 ABG pCO2 61.8 H ABG pO2 71 L Paco Test POS Respiration Rate 12 O2 Delivery Device Bi / C PAP EPAP 8 IPAP 12 Blood Gas Notified Whom HOSP Blood Gas Notified Time 2100 Urine Color Yellow Urine Clarity Clear Urine pH 7.0 Ur Specific [place] 1.005 Urine Protein 15 H Urine Glucose (UA) 50 H Urine Ketones Negative Urine Occult Blood 150 H Urine Nitrite Negative Urine Bilirubin Negative Urine Urobilinogen Normal Ur Leukocyte Esterase Negative Urine RBC 0-5 SEEN Urine WBC 0 SEEN Ur Squamous Epith Cells 0 SEEN Urine Bacteria 0 SEEN Urine Mucus 0 SEEN POC Glucose 02/11/18 02/10/18 06:44 22:51 POC Glucose 156 H 164 H Clinical Impression(s) from Imaging Studies Chest X-Ray 02/10/18 13:33 IMPRESSION: There are worsened prominent interstitial markings suggesting vascular congestion. Electronically Signed: Letitia Benedict MD at 13:52 EDT , Service support , Chest CTA 02/10/18 14:01 IMPRESSION: There is heterogeneous enhancement of the pulmonary arteries limiting evaluation for pulmonary embolism. Peripheral pulmonary emboli are not excluded. There is chronic obstructive pulmonary disease. There is mild diffuse bronchiectasis. There is an area of right upper lobe prominent interstitial markings. There is a left lateral upper abdominal wall partially imaged fat-containing hernia versus lipoma. Electronically Signed: Letitia Benedict MD at 15:21 EDT , Service support , Assessment/Plan Active and Suspected Problems (Last Reviewed 02/02/18 @ 08:19 by Prema Mccabe COPD exacerbation (Acute) Sepsis (Acute) RECOMMENDATIONS: 1. Consider obtaining viral panel 2. Empiric antibiotics pending culture results 3. Decrease IV steroids, continue bronchodilators and mucolytic 4. Increase activity as tolerated 5. BiPAP with sleep 6. Okay to discontinue stepdown status from my perspective. We will continue to follow. IMPRESSIONS: 1. Acute on chronic hypoxic and hypercarbic respiratory failure Patient with advanced lung disease at baseline. Patient was last known FEV1 of 20% of predicted. She responded well to BiPAP therapy initially. ABG shows compensated CO2 retention with adequate oxygenation. Patient has had a history of Ferrera pneumo virus in the past. Could consider obtaining repeat viral culture. Unclear if patient has a respiratory infection versus inability to compensate for high fever. Continue with BiPAP rescue as necessary. Likely okay to discontinue stepdown status from my perspective 2. COPD exacerbation Patient had PFTs in May which showed severe partially reversible ventilatory defect. See #1. Unclear if patient has been compliant with home trilogy ventilator. Patient did not make an attempt to contact our office prior to presenting for this exacerbation. Patient did have significant fever on presentation. Given advanced lung disease, it is possible the patient was just unable to tolerate the increased metabolic demand of fever. Multiple cultures are currently pending. 3. CAD s/pPTCA/anxiety/hyperlipidemia/hypertension Complicates care, management, recovery, and prognosis. Management per hospitalist. This note was generated with AudioName dictation software. It may contain incorrect words, spelling, and punctuation that were not noted in checking the note before signing. Code Visit Inpatient E&M: 63399 Init Hosp L3
[2018-02-11 09:03] LABS: Absolute Lymphocyte Count 0.75 X10^3/ul (0.83-4.51); Absolute Neutrophil Count 26.1 X10^3/uL (2.0-7.7); Basophil# 0.01 X10^3/uL; Hemoglobin 10.8 g/dl (13.0-16.5); Lymphocyte # 0.75 X10^3/ul (4.0); Lymphocyte % 2.7 % (19-41); Mean Corp Hgb Conc 29.2 g/gl (32-36); Mean Corpuscular Hgb 23.2 pg (27.0-32.0); Mean Corpuscular Volume 79.4 fL (80-94); Mean Platelet Vol. 9.1 fl (6.2-12.0); Monocyte# 1.17 X10^3/uL; Monocyte% 4.2 % (0-10); Neutrophil # 26.07 X10^3/uL (2.7-7.7); Neutrophil % 92.9 % (47-70); Platelet Count 325 K/mm3 (150-450); RBC Distribution Width CV 15.4 % (11.6-14.6); RBC Distribution Width SD 44.4 fl (35.1-43.9); Red Blood Count 4.66 M/mm3 (4.6-6.2); White Blood Count 28.1 K/mm3 (4.4-11.0)
[2018-02-11 09:04] LABS: Differential Indicated SCAN CRITERIA MET; POSITIVE COUNT NO; POSITIVE DIFFERENTIAL YES; POSITIVE MORPHOLOGY NO
[2018-02-11 09:14] LABS: Anion Gap 5 (5-15); BUN 20 mg/dL (7-18); BUN/Creat Ratio 21.3 RATIO (10-20); Calcium,Total 8.7 mg/dL (8.5-10.1); Chloride 101 mmol/L (98-107); Creatinine, Serum 0.94 mg/dL (0.70-1.30); EST Glomerular Filtration Rate 87 mL/min (>60); Est Glom Filt Rate - Afr Amer 106 mL/min (>60); Estimated Creatinine Clearance 91.23 ml/min; Glucose 155 mg/dL (74-106); Potassium 4.1 mmol/L (3.5-5.1); Sodium Level 139 mmol/L (136-145)
[2018-02-11] MEDS: levoFLOXacin IV 750 MG/150 ML BAG 100 MG IV (10:54)
[2018-02-11] MEDS: Furosemide 40 MG Tablet PO ×2 (10:54→22:16)
[2018-02-11] MEDS: Enoxaparin 40 MG/0.4 ML Syringe SC (10:54)
[2018-02-11] MEDS: Famotidine 20 MG Tablet PO ×2 (10:55→22:18)
[2018-02-11] MEDS: guaiFENesin 1,200 MG Tablet 1200 MG PO ×2 (10:55→22:17)
[2018-02-11] MEDS: buPROPion 100 MG Tablet PO ×2 (10:55→22:19)
[2018-02-11] MEDS: Clopidogrel Bisulfate 75 MG Tablet PO (10:55)
[2018-02-11 11:55] LABS: Bedside Glucose 210 mg/dL (70-110)
--- NOTE | 2018-02-11 13:07 | PCM.PROGNOTE ---
<Rl Mota - Last Filed: 02/11/18 13:07> Patient Problems: Active and Suspected Problems (Last Reviewed 02/02/18 @ 08:19 by Prema Louise) COPD exacerbation (Acute) Sepsis (Acute) Subjective: Patient states he is not feeling better at all today, however he is now ambulatory going to the bathroom on his own and able to get out of bed, he is not grunting when he is breathing anymore either. He was seen by pulmonology this morning. No further fever or chills subjectively. He continues to have a productive cough and has supplied us with a sample for the lab. He does complain of ongoing watery diarrhea which is been chronic for about a month and a half. No abdominal pain, nausea, vomiting. - Physical Exam General: Alert, Oriented x3, Cooperative HEENT: Atraumatic, PERRLA, EOMI, Normocephalic Neck: Supple, No JVD, Negative Carotid Bruits Lungs: Diminished - Severely diminished throughout all santiago, I do not appreciate any adventitious sounds at this time. Cardiovascular: Regular rate, No murmurs Abdomen: Bowel Sounds Present, Soft, Non Tender Extremities: No edema, Capillary Refill Less than 3 Seconds Skin: No rashes, No breakdown Musculoskeletal: No Tenderness to Palpation of Joints or Extremities Neurological: Cranial nerves II-XII grossly intact Psych/Mental Status: Normal Affect, Appropriate, Alert and oriented to time, place, person, mood and affect Vital Signs Temp Pulse Resp BP Pulse Ox 98 F 89 16 97/61 96 02/11/18 10:55 02/11/18 11:09 02/11/18 10:57 02/11/18 11:09 02/11/18 10:55 Oxygen Flow Rate (L/min) 3 Oxygen Delivery Method Nasal Cannula Weight: 109.905 kg Body Mass Index (BMI) 33.7 Intake and Output for Last 24 Hours 02/09/18 02/10/18 02/11/18 23:59 23:59 23:59 Intake Total 893 / 893 1630 / 1630 Output Total 175 / 175 500 / 500 Balance 718 / 718 1130 / 1130 Microbiology Past 72 Hours 02/11/18 08:00 Gram Stain - Final Sputum, Expectorated/Coughed 02/10/18 16:25 Influenza Types A,B Direct FA (JEOVANNY) - Final Mucosa - Nose Laboratory Tests Past 24 Hrs 02/10/18 02/10/18 02/11/18 16:35 21:08 08:43 WBC 28.1 H RBC 4.66 Hgb 10.8 L Hct 37.0 L MCV 79.4 L MCH 23.2 L MCHC 29.2 L RDW 15.4 H RDW Differential 44.4 H Plt Count 325 MPV 9.1 Immature Gran % (Auto) 0.200 Neut % (Auto) 92.9 H Lymph % (Auto) 2.7 L [place] % (Auto) 4.2 Eos % (Auto) 0.0 Baso % (Auto) 0.0 Absolute Neuts (auto) 26.1 H Absolute Lymphs (auto) 0.75 L Total Counted Not Reportable Specimen Type ART Sample Site L Radial pH 7.37 Bicarbonate Actual 35.6 H POC Total CO2 37 Base Excess 10 H O2 Saturation 93 L O2 % 30 ABG pCO2 61.8 H ABG pO2 71 L Paco Test POS Respiration Rate 12 O2 Delivery Device Bi / C PAP EPAP 8 IPAP 12 Blood Gas Notified Whom HOSP Blood Gas Notified Time 2100 Sodium Potassium Chloride Carbon Dioxide Anion Gap BUN Creatinine Estim Creat Clear Calc Est GFR (MDRD) Af Amer Est GFR (MDRD) Non-Af BUN/Creatinine Ratio Glucose Calcium Urine Color Yellow Urine Clarity Clear Urine pH 7.0 Ur Specific [place] 1.005 Urine Protein 15 H Urine Glucose (UA) 50 H Urine Ketones Negative Urine Occult Blood 150 H Urine Nitrite Negative Urine Bilirubin Negative Urine Urobilinogen Normal Ur Leukocyte Esterase Negative Urine RBC 0-5 SEEN Urine WBC 0 SEEN Ur Squamous Epith Cells 0 SEEN Urine Bacteria 0 SEEN Urine Mucus 0 SEEN 02/11/18 08:43 WBC RBC Hgb Hct MCV MCH MCHC RDW RDW Differential Plt Count MPV Immature Gran % (Auto) Neut % (Auto) Lymph % (Auto) [place] % (Auto) Eos % (Auto) Baso % (Auto) Absolute Neuts (auto) Absolute Lymphs (auto) Total Counted Specimen Type Sample Site pH Bicarbonate Actual POC Total CO2 Base Excess O2 Saturation O2 % ABG pCO2 ABG pO2 Paco Test Respiration Rate O2 Delivery Device EPAP IPAP Blood Gas Notified Whom Blood Gas Notified Time Sodium 139 Potassium 4.1 Chloride 101 Carbon Dioxide 33.0 H Anion Gap 5 BUN 20 H Creatinine 0.94 Estim Creat Clear Calc 91.23 Est GFR (MDRD) Af Amer 106 Est GFR (MDRD) Non-Af 87 BUN/Creatinine Ratio 21.3 H Glucose 155 H Calcium 8.7 Urine Color Urine Clarity Urine pH Ur Specific Calder Urine Protein Urine Glucose (UA) Urine Ketones Urine Occult Blood Urine Nitrite Urine Bilirubin Urine Urobilinogen Ur Leukocyte Esterase Urine RBC Urine WBC Ur Squamous Epith Cells Urine Bacteria Urine Mucus POC Glucose 02/11/18 02/11/18 02/10/18 11:43 06:44 22:51 POC Glucose 210 H 156 H 164 H Medical Necessity - Tobacco Use Smoking Status: Former smoker Tobacco Use: Non-smoker Assessment/Plan Active and Suspected Problems (Last Reviewed 02/02/18 @ 08:19 by Prema Louise) COPD exacerbation (Acute) Sepsis (Acute) 1. Acute sepsis 2/2 bronchiectasis with fever 103.2, leukocytosis, tachycardia, tachypnea -continue Levaquin, steroids as per pulmonology, continue duo nebs, incentive spirometer, Pap therapy. He is now afebrile. CTA with bronchiectasis. Pulmonology does not feel that there are peripheral PEs. Despite him saying he is no better, he appears significantly improved compared to when I saw him last night in the ER. He no longer has grunting respirations and he is sitting up on the side of the bed comfortably, he has just returned from the bathroom where he ambulated there back by himself with minimal difficulty. 2. Acute COPD exacerbation -Solu-Medrol, duo nebs, as above taper as per pulmonology. 3. Chronic hypoxic respiratory failure - baseline 4 at rest 6 with exertion - at baseline. 4. MICHELLE - on trilogy at home, continue BiPAP at night 5.Chronic diastolic CHF - no peripheral edema, BNP negative. Hold AM lasix with borderline BP. 6. HTN - running low, hold orals and restart if appropriate 7. Anxiety - wellbutrin 8. Chronic anemia - mild, normocytic. trend. 9. CAD - prior PTCA and currently with CP. EKG sinus tachy and troponin negative. Maintain on tele. Maintain asa/plavix/statin/metoprolol. 10. T2DM - hold orals. SSI. DVT ppx: Lovenox This patient was seen by Rl Mota PA-C under the supervision of Doctor Genoveva. <Deshaun Tomas - Last Filed: 02/11/18 14:11> Subjective: Still short of breath--no change. - Physical Exam General: Alert, Cooperative HEENT: Atraumatic, Normocephalic Lungs: Diminished, - - coarse breath sounds bilaterally. Cardiovascular: Regular rate, Regular Rhythm, Normal S1, Normal S2, No murmurs Abdomen: Bowel Sounds Present, Soft, Non Tender, Non-Distended Extremities: No edema, No Calf Tenderness Psych/Mental Status: Normal Affect, Appropriate Vital Signs Temp Pulse Resp BP Pulse Ox 36.6 C 89 16 97/61 96 02/11/18 10:55 02/11/18 11:09 02/11/18 10:57 02/11/18 11:09 02/11/18 10:55 Oxygen Flow Rate (L/min) 3 Oxygen Delivery Method Nasal Cannula Weight: 109.905 kg Body Mass Index (BMI) 33.7 Intake and Output for Last 24 Hours 02/09/18 02/10/18 02/11/18 23:59 23:59 23:59 Intake Total 893 / 893 1630 / 1630 Output Total 175 / 175 500 / 500 Balance 718 / 718 1130 / 1130 Microbiology Past 72 Hours 02/11/18 08:00 Gram Stain - Final Sputum, Expectorated/Coughed 02/10/18 16:25 Influenza Types A,B Direct FA (JEOVANNY) - Final Mucosa - Nose Laboratory Tests Past 24 Hrs 02/10/18 02/10/18 02/11/18 16:35 21:08 08:43 WBC 28.1 H RBC 4.66 Hgb 10.8 L Hct 37.0 L MCV 79.4 L MCH 23.2 L MCHC 29.2 L RDW 15.4 H RDW Differential 44.4 H Plt Count 325 MPV 9.1 Immature Gran % (Auto) 0.200 Neut % (Auto) 92.9 H Lymph % (Auto) 2.7 L [place] % (Auto) 4.2 Eos % (Auto) 0.0 Baso % (Auto) 0.0 Absolute Neuts (auto) 26.1 H Absolute Lymphs (auto) 0.75 L Total Counted Not Reportable Specimen Type ART Sample Site L Radial pH 7.37 Bicarbonate Actual 35.6 H POC Total CO2 37 Base Excess 10 H O2 Saturation 93 L O2 % 30 ABG pCO2 61.8 H ABG pO2 71 L Paco Test POS Respiration Rate 12 O2 Delivery Device Bi / C PAP EPAP 8 IPAP 12 Blood Gas Notified Whom [facility] Blood Gas Notified Time 2100 Sodium Potassium Chloride Carbon Dioxide Anion Gap BUN Creatinine Estim Creat Clear Calc Est GFR (MDRD) Af Amer Est GFR (MDRD) Non-Af BUN/Creatinine Ratio Glucose Calcium Urine Color Yellow Urine Clarity Clear Urine pH 7.0 Ur Specific [place] 1.005 Urine Protein 15 H Urine Glucose (UA) 50 H Urine Ketones Negative Urine Occult Blood 150 H Urine Nitrite Negative Urine Bilirubin Negative Urine Urobilinogen Normal Ur Leukocyte Esterase Negative Urine RBC 0-5 SEEN Urine WBC 0 SEEN Ur Squamous Epith Cells 0 SEEN Urine Bacteria 0 SEEN Urine Mucus 0 SEEN 02/11/18 08:43 WBC RBC Hgb Hct MCV MCH MCHC RDW RDW Differential Plt Count MPV Immature Gran % (Auto) Neut % (Auto) Lymph % (Auto) [place] % (Auto) Eos % (Auto) Baso % (Auto) Absolute Neuts (auto) Absolute Lymphs (auto) Total Counted Specimen Type Sample Site pH Bicarbonate Actual POC Total CO2 Base Excess O2 Saturation O2 % ABG pCO2 ABG pO2 Paco Test Respiration Rate O2 Delivery Device EPAP IPAP Blood Gas Notified Whom Blood Gas Notified Time Sodium 139 Potassium 4.1 Chloride 101 Carbon Dioxide 33.0 H Anion Gap 5 BUN 20 H Creatinine 0.94 Estim Creat Clear Calc 91.23 Est GFR (MDRD) Af Amer 106 Est GFR (MDRD) Non-Af 87 BUN/Creatinine Ratio 21.3 H Glucose 155 H Calcium 8.7 Urine Color Urine Clarity Urine pH Ur Specific Calder Urine Protein Urine Glucose (UA) Urine Ketones Urine Occult Blood Urine Nitrite Urine Bilirubin Urine Urobilinogen Ur Leukocyte Esterase Urine RBC Urine WBC Ur Squamous Epith Cells Urine Bacteria Urine Mucus POC Glucose 02/11/18 02/11/18 02/10/18 11:43 06:44 22:51 POC Glucose 210 H 156 H 164 H Assessment/Plan Patient seen and examined independently. Agree with the above note by the physician assistant refinery operator. 1. Sepsis Present on admission Secondary to pneumonia 2. Chronic hypoxic and hypercapnic respiratory failure Secondary to COPD exacerbation, sleep apnea, pneumonia. Subjectively unchanged at this time. 3. Acute COPD exacerbation Continue with bronchodilators and Solu-Medrol Pulmonary following 4. Suspected pneumococcal pneumonia Continued pulmonary toilet Continue with IV antibiotics with Levaquin Follow-up sputum culture
--- NOTE | 2018-02-11 13:10 | PN_ITS ---
<Rl Mota - Last Filed: 02/11/18 13:07> Patient Problems: Active and Suspected Problems (Last Reviewed 02/02/18 @ 08:19 by Prema Louise ) COPD exacerbation (Acute) Sepsis (Acute) Subjective: Patient states he is not feeling better at all today, however he is now ambulatory going to the bathroom on his own and able to get out of bed, he is not grunting when he is breathing anymore either. He was seen by pulmonology this morning. No further fever or chills subjectively. He continues to have a productive cough and has supplied us with a sample for the lab. He does complain of ongoing watery diarrhea which is been chronic for about a month and a half. No abdominal pain, nausea, vomiting. - Physical Exam General: Alert, Oriented x3, Cooperative HEENT: Atraumatic, PERRLA, EOMI, Normocephalic Neck: Supple, No JVD, Negative Carotid Bruits Lungs: Diminished - Severely diminished throughout all santiago, I do not appreciate any adventitious sounds at this time. Cardiovascular: Regular rate, No murmurs Abdomen: Bowel Sounds Present, Soft, Non Tender Extremities: No edema, Capillary Refill Less than 3 Seconds Skin: No rashes, No breakdown Musculoskeletal: No Tenderness to Palpation of Joints or Extremities Neurological: Cranial nerves II-XII grossly intact Psych/Mental Status: Normal Affect, Appropriate, Alert and oriented to time, place, person, mood and affect Vital Signs Temp Pulse Resp BP Pulse Ox 98 F 89 16 97/61 96 02/11/18 10:55 02/11/18 11:09 02/11/18 10:57 02/11/18 11:09 02/11/18 10:55 Oxygen Flow Rate (L/min) 3 Oxygen Delivery Method Nasal Cannula Weight: 109.905 kg Body Mass Index (BMI) 33.7 Intake and Output for Last 24 Hours 02/09/18 02/10/18 02/11/18 23:59 23:59 23:59 Intake Total 893 / 893 1630 / 1630 Output Total 175 / 175 500 / 500 Balance 718 / 718 1130 / 1130 Microbiology Past 72 Hours 02/11/18 08:00 Gram Stain - Final Sputum, Expectorated/Coughed 02/10/18 16:25 Influenza Types A,B Direct FA (JEOVANNY) - Final Mucosa - Nose Laboratory Tests Past 24 Hrs 02/10/18 02/10/18 02/11/18 16:35 21:08 08:43 WBC 28.1 H RBC 4.66 Hgb 10.8 L Hct 37.0 L MCV 79.4 L MCH 23.2 L MCHC 29.2 L RDW 15.4 H RDW Differential 44.4 H Plt Count 325 MPV 9.1 Immature Gran % (Auto) 0.200 Neut % (Auto) 92.9 H Lymph % (Auto) 2.7 L Coke % (Auto) 4.2 Eos % (Auto) 0.0 Baso % (Auto) 0.0 Absolute Neuts (auto) 26.1 H Absolute Lymphs (auto) 0.75 L Total Counted Not Reportable Specimen Type ART Sample Site L Radial pH 7.37 Bicarbonate Actual 35.6 H POC Total CO2 37 Base Excess 10 H O2 Saturation 93 L O2 % 30 ABG pCO2 61.8 H ABG pO2 71 L Paco Test POS Respiration Rate 12 O2 Delivery Device Bi / C PAP EPAP 8 IPAP 12 Blood Gas Notified Whom HOSP Blood Gas Notified Time 2100 Sodium Potassium Chloride Carbon Dioxide Anion Gap BUN Creatinine Estim Creat Clear Calc Est GFR (MDRD) Af Amer Est GFR (MDRD) Non-Af BUN/Creatinine Ratio Glucose Calcium Urine Color Yellow Urine Clarity Clear Urine pH 7.0 Ur Specific [place] 1.005 Urine Protein 15 H Urine Glucose (UA) 50 H Urine Ketones Negative Urine Occult Blood 150 H Urine Nitrite Negative Urine Bilirubin Negative Urine Urobilinogen Normal Ur Leukocyte Esterase Negative Urine RBC 0-5 SEEN Urine WBC 0 SEEN Ur Squamous Epith Cells 0 SEEN Urine Bacteria 0 SEEN Urine Mucus 0 SEEN 02/11/18 08:43 WBC RBC Hgb Hct MCV MCH MCHC RDW RDW Differential Plt Count MPV Immature Gran % (Auto) Neut % (Auto) Lymph % (Auto) Coke % (Auto) Eos % (Auto) Baso % (Auto) Absolute Neuts (auto) Absolute Lymphs (auto) Total Counted Specimen Type Sample Site pH Bicarbonate Actual POC Total CO2 Base Excess O2 Saturation O2 % ABG pCO2 ABG pO2 Paco Test Respiration Rate O2 Delivery Device EPAP IPAP Blood Gas Notified Whom Blood Gas Notified Time Sodium 139 Potassium 4.1 Chloride 101 Carbon Dioxide 33.0 H Anion Gap 5 BUN 20 H Creatinine 0.94 Estim Creat Clear Calc 91.23 Est GFR (MDRD) Af Amer 106 Est GFR (MDRD) Non-Af 87 BUN/Creatinine Ratio 21.3 H Glucose 155 H Calcium 8.7 Urine Color Urine Clarity Urine pH Ur Specific [place] Urine Protein Urine Glucose (UA) Urine Ketones Urine Occult Blood Urine Nitrite Urine Bilirubin Urine Urobilinogen Ur Leukocyte Esterase Urine RBC Urine WBC Ur Squamous Epith Cells Urine Bacteria Urine Mucus POC Glucose 02/11/18 02/11/18 02/10/18 11:43 06:44 22:51 POC Glucose 210 H 156 H 164 H Medical Necessity - Tobacco Use Smoking Status: Former smoker Tobacco Use: Non-smoker Assessment/Plan Active and Suspected Problems (Last Reviewed 02/02/18 @ 08:19 by Prema Louise ) COPD exacerbation (Acute) Sepsis (Acute) 1. Acute sepsis 2/2 bronchiectasis with fever 103.2, leukocytosis, tachycardia, tachypnea -continue Levaquin, steroids as per pulmonology, continue duo nebs, incentive spirometer, Pap therapy. He is now afebrile. CTA with bronchiectasis. Pulmonology does not feel that there are peripheral PEs. Despite him saying he is no better, he appears significantly improved compared to when I saw him last night in the ER. He no longer has grunting respirations and he is sitting up on the side of the bed comfortably, he has just returned from the bathroom where he ambulated there back by himself with minimal difficulty. 2. Acute COPD exacerbation -Solu-Medrol, duo nebs, as above taper as per pulmonology. 3. Chronic hypoxic respiratory failure - baseline 4 at rest 6 with exertion - at baseline. 4. MICHELLE - on trilogy at home, continue BiPAP at night 5.Chronic diastolic CHF - no peripheral edema, BNP negative. Hold AM lasix with borderline BP. 6. HTN - running low, hold orals and restart if appropriate 7. Anxiety - wellbutrin 8. Chronic anemia - mild, normocytic. trend. 9. CAD - prior PTCA and currently with CP. EKG sinus tachy and troponin negative. Maintain on tele. Maintain asa/plavix/statin/metoprolol. 10. T2DM - hold orals. SSI. DVT ppx: Lovenox This patient was seen by Rl Mota PA-C under the supervision of Doctor Genoveva. <Deshaun Tomas - Last Filed: 02/11/18 14:11> Subjective: Still short of breath--no change. - Physical Exam General: Alert, Cooperative HEENT: Atraumatic, Normocephalic Lungs: Diminished, - - coarse breath sounds bilaterally. Cardiovascular: Regular rate, Regular Rhythm, Normal S1, Normal S2, No murmurs Abdomen: Bowel Sounds Present, Soft, Non Tender, Non-Distended Extremities: No edema, No Calf Tenderness Psych/Mental Status: Normal Affect, Appropriate Vital Signs Temp Pulse Resp BP Pulse Ox 36.6 C 89 16 97/61 96 02/11/18 10:55 02/11/18 11:09 02/11/18 10:57 02/11/18 11:09 02/11/18 10:55 Oxygen Flow Rate (L/min) 3 Oxygen Delivery Method Nasal Cannula Weight: 109.905 kg Body Mass Index (BMI) 33.7 Intake and Output for Last 24 Hours 02/09/18 02/10/18 02/11/18 23:59 23:59 23:59 Intake Total 893 / 893 1630 / 1630 Output Total 175 / 175 500 / 500 Balance 718 / 718 1130 / 1130 Microbiology Past 72 Hours 02/11/18 08:00 Gram Stain - Final Sputum, Expectorated/Coughed 02/10/18 16:25 Influenza Types A,B Direct FA (JEOVANNY) - Final Mucosa - Nose Laboratory Tests Past 24 Hrs 02/10/18 02/10/18 02/11/18 16:35 21:08 08:43 WBC 28.1 H RBC 4.66 Hgb 10.8 L Hct 37.0 L MCV 79.4 L MCH 23.2 L MCHC 29.2 L RDW 15.4 H RDW Differential 44.4 H Plt Count 325 MPV 9.1 Immature Gran % (Auto) 0.200 Neut % (Auto) 92.9 H Lymph % (Auto) 2.7 L Coke % (Auto) 4.2 Eos % (Auto) 0.0 Baso % (Auto) 0.0 Absolute Neuts (auto) 26.1 H Absolute Lymphs (auto) 0.75 L Total Counted Not Reportable Specimen Type ART Sample Site L Radial pH 7.37 Bicarbonate Actual 35.6 H POC Total CO2 37 Base Excess 10 H O2 Saturation 93 L O2 % 30 ABG pCO2 61.8 H ABG pO2 71 L Paco Test POS Respiration Rate 12 O2 Delivery Device Bi / C PAP EPAP 8 IPAP 12 Blood Gas Notified Whom [facility] Blood Gas Notified Time 2100 Sodium Potassium Chloride Carbon Dioxide Anion Gap BUN Creatinine Estim Creat Clear Calc Est GFR (MDRD) Af Amer Est GFR (MDRD) Non-Af BUN/Creatinine Ratio Glucose Calcium Urine Color Yellow Urine Clarity Clear Urine pH 7.0 Ur Specific [place] 1.005 Urine Protein 15 H Urine Glucose (UA) 50 H Urine Ketones Negative Urine Occult Blood 150 H Urine Nitrite Negative Urine Bilirubin Negative Urine Urobilinogen Normal Ur Leukocyte Esterase Negative Urine RBC 0-5 SEEN Urine WBC 0 SEEN Ur Squamous Epith Cells 0 SEEN Urine Bacteria 0 SEEN Urine Mucus 0 SEEN 02/11/18 08:43 WBC RBC Hgb Hct MCV MCH MCHC RDW RDW Differential Plt Count MPV Immature Gran % (Auto) Neut % (Auto) Lymph % (Auto) Coke % (Auto) Eos % (Auto) Baso % (Auto) Absolute Neuts (auto) Absolute Lymphs (auto) Total Counted Specimen Type Sample Site pH Bicarbonate Actual POC Total CO2 Base Excess O2 Saturation O2 % ABG pCO2 ABG pO2 Paco Test Respiration Rate O2 Delivery Device EPAP IPAP Blood Gas Notified Whom Blood Gas Notified Time Sodium 139 Potassium 4.1 Chloride 101 Carbon Dioxide 33.0 H Anion Gap 5 BUN 20 H Creatinine 0.94 Estim Creat Clear Calc 91.23 Est GFR (MDRD) Af Amer 106 Est GFR (MDRD) Non-Af 87 BUN/Creatinine Ratio 21.3 H Glucose 155 H Calcium 8.7 Urine Color Urine Clarity Urine pH Ur Specific [place] Urine Protein Urine Glucose (UA) Urine Ketones Urine Occult Blood Urine Nitrite Urine Bilirubin Urine Urobilinogen Ur Leukocyte Esterase Urine RBC Urine WBC Ur Squamous Epith Cells Urine Bacteria Urine Mucus POC Glucose 02/11/18 02/11/18 02/10/18 11:43 06:44 22:51 POC Glucose 210 H 156 H 164 H Assessment/Plan Patient seen and examined independently. Agree with the above note by the physician captain's assistant. 1. Sepsis * Present on admission * Secondary to pneumonia 2. Chronic hypoxic and hypercapnic respiratory failure * Secondary to COPD exacerbation, sleep apnea, pneumonia. * Subjectively unchanged at this time. 3. Acute COPD exacerbation * Continue with bronchodilators and Solu-Medrol * Pulmonary following 4. Suspected pneumococcal pneumonia * Continued pulmonary toilet * Continue with IV antibiotics with Levaquin * Follow-up sputum culture
[2018-02-11 16:30] LABS: Bedside Glucose 162 mg/dL (70-110)
[2018-02-11] MEDS: Atorvastatin Calcium 40 MG Tablet PO (22:16)
[2018-02-11] MEDS: Metoprolol Tartrate 25 MG Tablet PO (22:17)
[2018-02-11] MEDS: 0.9% NaCl Peripheral Flush Adult/Peds IV (22:20)
[2018-02-11 22:36] LABS: Bedside Glucose 187 mg/dL (70-110)
[2018-02-12] VITALS (20 sets, daily range): BP systolic 99–117; BP diastolic 54–67; PULSE 20–89; RESP 12–76; TEMP 36.6–36.7; O2SAT 94–98
[2018-02-12] MEDS: Ipratropium/Albuterol Sulfate 3 ML AMPUL.NEB INHALATION ×5 (03:52→19:20)
[2018-02-12] MEDS: 0.9% NaCl Peripheral Flush Adult/Peds IV ×2 (06:59→08:37)
[2018-02-12] MEDS: MethylPREDNISolone 125 MG/2 ML Vial 60 MG IV (06:59)
[2018-02-12 07:05] LABS: Bedside Glucose 153 mg/dL (70-110)
[2018-02-12 08:24] LABS: Absolute Lymphocyte Count 1.24 X10^3/ul (0.83-4.51); Absolute Neutrophil Count 26.1 X10^3/uL (2.0-7.7); Basophil# 0.01 X10^3/uL; Differential Indicated SCAN CRITERIA MET; Hematocrit 38.2 % (40-54); Hemoglobin 11.1 g/dl (13.0-16.5); Lymphocyte # 1.24 X10^3/ul (4.0); Lymphocyte % 4.3 % (19-41); Mean Corp Hgb Conc 29.1 g/gl (32-36); Mean Corpuscular Hgb 23.2 pg (27.0-32.0); Mean Corpuscular Volume 79.7 fL (80-94); Mean Platelet Vol. 9.2 fl (6.2-12.0); Monocyte# 1.39 X10^3/uL; Monocyte% 4.8 % (0-10); Neutrophil # 26.14 X10^3/uL (2.7-7.7); Neutrophil % 90.6 % (47-70); POSITIVE COUNT NO; POSITIVE DIFFERENTIAL YES; POSITIVE MORPHOLOGY NO; Platelet Count 415 K/mm3 (150-450); RBC Distribution Width CV 15.4 % (11.6-14.6); RBC Distribution Width SD 44.6 fl (35.1-43.9); Red Blood Count 4.79 M/mm3 (4.6-6.2); White Blood Count 28.9 K/mm3 (4.4-11.0)
[2018-02-12] MEDS: guaiFENesin 1,200 MG Tablet 1200 MG PO ×2 (08:32→21:07)
[2018-02-12] MEDS: Clopidogrel Bisulfate 75 MG Tablet PO (08:32)
[2018-02-12] MEDS: buPROPion 100 MG Tablet PO ×2 (08:32→21:07)
[2018-02-12] MEDS: Famotidine 20 MG Tablet PO ×2 (08:32→21:07)
[2018-02-12] MEDS: Metoprolol Tartrate 25 MG Tablet PO ×2 (08:32→21:07)
[2018-02-12] MEDS: Furosemide 40 MG Tablet PO ×2 (08:32→21:07)
[2018-02-12] MEDS: Aspirin 81 MG TAB.CHEW PO (08:32)
[2018-02-12] MEDS: Enoxaparin 40 MG/0.4 ML Syringe SC (08:33)
[2018-02-12] MEDS: levoFLOXacin IV 750 MG/150 ML BAG 100 MG IV (08:37)
--- NOTE | 2018-02-12 08:38 | PN_ITS ---
Patient Problems: Active and Suspected Problems (Last Reviewed 02/02/18 @ 08:19 by Prema Louise ) COPD exacerbation (Acute) Sepsis (Acute) Subjective: Patient did well overnight. No acute issues were reported. Patient is back to his baseline nasal cannula oxygen. Patient's blood sugars have been well controlled despite steroid therapy. Patient continues to have significant leukocytosis, but no fever was reported overnight. Patient reports significant improvement in respiratory status and denies any chest pain at this time. - Physical Exam General: Alert, Oriented x3, Cooperative, No apparent distress, - - There is older than stated age. Speaking in full sentences. HEENT: Atraumatic, PERRLA, EOMI, Normocephalic, - - No scleral icterus or injection noted. Oral: Moist Mucosa, No Gingival or Mucosal Lesions/ Ulcerations Neck: Supple, No JVD, No Nodes, Trachea Midline Lungs: No rhonchi, No rales, Diminished, Wheezes - Sporadic at end exhalation, - - Symmetric expansion. No dullness to percussion. Cardiovascular: Regular rate, Regular Rhythm, Normal S1, Normal S2, No murmurs, No rub noted, No Gallop Abdomen: Bowel Sounds Present, Soft, Non Tender, Non-Distended, Obese Extremities: No cyanosis, No edema, Capillary Refill Less than 3 Seconds, Clubbing Skin: No rashes, No breakdown Musculoskeletal: No Tenderness to Palpation of Joints or Extremities Lymphatic: No Cervical, Supraclavicular, or Inguinal Adenopathy Neurological: Cranial nerves II-XII grossly intact, Neuro grossly intact, Motor Exam 5/5 strength throughout Psych/Mental Status: Alert and oriented to time, place, person, mood and affect Vital Signs Temp Pulse Resp BP Pulse Ox 36.7 C 86 18 99/63 96 02/12/18 04:15 02/12/18 07:15 02/12/18 07:14 02/12/18 04:15 02/12/18 07:14 Oxygen Flow Rate (L/min) 3 Oxygen Delivery Method Nasal Cannula Weight: 109.905 kg Body Mass Index (BMI) 33.7 Intake and Output for Last 24 Hours 02/10/18 02/11/18 02/12/18 23:59 23:59 23:59 Intake Total 893 / 893 2029 / 2029 120 / 120 Output Total 175 / 175 1450 / 1450 300 / 300 Balance 718 / 718 580 / 580 -180 / -180 Microbiology Past 72 Hours 02/11/18 08:00 Gram Stain - Final Sputum, Expectorated/Coughed 02/10/18 16:25 Influenza Types A,B Direct FA (JEOVANNY) - Final Mucosa - Nose Laboratory Tests Past 24 Hrs 02/11/18 02/11/18 02/12/18 08:43 08:43 07:50 WBC 28.1 H 28.9 H RBC 4.66 4.79 Hgb 10.8 L 11.1 L Hct 37.0 L 38.2 L MCV 79.4 L 79.7 L MCH 23.2 L 23.2 L MCHC 29.2 L 29.1 L RDW 15.4 H 15.4 H RDW Differential 44.4 H 44.6 H Plt Count 325 415 MPV 9.1 9.2 Immature Gran % (Auto) 0.200 0.300 Neut % (Auto) 92.9 H 90.6 H Lymph % (Auto) 2.7 L 4.3 L Craig % (Auto) 4.2 4.8 Eos % (Auto) 0.0 0.0 Baso % (Auto) 0.0 0.0 Absolute Neuts (auto) 26.1 H 26.1 H Absolute Lymphs (auto) 0.75 L 1.24 Total Counted Not Reportable Pending Sodium 139 Potassium 4.1 Chloride 101 Carbon Dioxide 33.0 H Anion Gap 5 BUN 20 H Creatinine 0.94 Estim Creat Clear Calc 91.23 Est GFR (MDRD) Af Amer 106 Est GFR (MDRD) Non-Af 87 BUN/Creatinine Ratio 21.3 H Glucose 155 H Calcium 8.7 02/12/18 07:50 WBC RBC Hgb Hct MCV MCH MCHC RDW RDW Differential Plt Count MPV Immature Gran % (Auto) Neut % (Auto) Lymph % (Auto) Craig % (Auto) Eos % (Auto) Baso % (Auto) Absolute Neuts (auto) Absolute Lymphs (auto) Total Counted Sodium Pending Potassium Pending Chloride Pending Carbon Dioxide Pending Anion Gap Pending BUN Pending Creatinine Pending Estim Creat Clear Calc Est GFR (MDRD) Af Amer Pending Est GFR (MDRD) Non-Af Pending BUN/Creatinine Ratio Pending Glucose Pending Calcium Pending POC Glucose 02/12/18 02/11/18 02/11/18 06:54 22:14 16:23 POC Glucose 153 H 187 H 162 H 02/11/18 11:43 POC Glucose 210 H Medical Necessity - Tobacco Use Smoking Status: Former smoker Tobacco Use: Non-smoker Assessment/Plan Active and Suspected Problems (Last Reviewed 02/02/18 @ 08:19 by Prema Louise ) COPD exacerbation (Acute) Sepsis (Acute) RECOMMENDATIONS: 1. Increase activity as tolerated 2. Empiric antibiotics pending culture results 3. Decrease IV steroids, continue bronchodilators and mucolytic 4. BiPAP with sleep 5. Transition to prednisone therapy IMPRESSIONS: 1. Acute on chronic hypoxic and hypercarbic respiratory failure Patient with advanced lung disease at baseline. Patient was last known FEV1 of 20% of predicted. Patient responded well to BiPAP therapy initially. ABG shows compensated CO2 retention with adequate oxygenation. Patient has had a history of Metapneumovirus in the recent past. Could consider obtaining repeat viral culture. Unclear if patient has a respiratory infection versus inability to compensate for high fever. Continue with BiPAP rescue as necessary. Will transition to prednisone therapy. 2. COPD exacerbation Patient had PFTs in May which showed severe partially reversible ventilatory defect. See #1. Unclear if patient has been compliant with home trilogy ventilator. Patient did not make an attempt to contact our office prior to presenting for this exacerbation. Patient did have significant fever on presentation. Given advanced lung disease, it is possible the patient was just unable to tolerate the increased metabolic demand of fever. Multiple cultures are currently pending. Sinew empiric antibiotics until cultures are negative. 3. CAD s/pPTCA/anxiety/hyperlipidemia/hypertension Complicates care, management, recovery, and prognosis. Management per hospitalist. This note was generated with [employer] software. It may contain incorrect words, spelling, and punctuation that were not noted in checking the note before signing. Code Visit Inpatient E&M: 22148 Subs Hosp L2
[2018-02-12 08:41] LABS: Anion Gap 7 (5-15); BUN 20 mg/dL (7-18); BUN/Creat Ratio 19.8 RATIO (10-20); Calcium,Total 9.2 mg/dL (8.5-10.1); Chloride 101 mmol/L (98-107); Creatinine, Serum 1.01 mg/dL (0.70-1.30); EST Glomerular Filtration Rate 81 mL/min (>60); Est Glom Filt Rate - Afr Amer 97 mL/min (>60); Estimated Creatinine Clearance 84.91 ml/min; Glucose 151 mg/dL (74-106); Potassium 3.8 mmol/L (3.5-5.1); Sodium Level 140 mmol/L (136-145)
[2018-02-12 08:52] LABS: Hypochromasia 1+; Microcytosis 1+
--- NOTE | 2018-02-12 09:59 | PCM.PROGNOTE ---
<Rl Mota - Last Filed: 02/12/18 09:59> Patient Problems: Active and Suspected Problems (Last Reviewed 02/02/18 @ 08:19 by Prema Louise) COPD exacerbation (Acute) Sepsis (Acute) Subjective: Slight improvement in SOB. Dry cough now. No further f/c. Ambulating. On home O2 levels. Mild right anterior chest pain - improved. No dizziness/LH/palp. - Physical Exam General: Alert, Oriented x3, Cooperative HEENT: Atraumatic, PERRLA, EOMI, Normocephalic Neck: Supple, No JVD, Negative Carotid Bruits Lungs: Diminished - slightly less diminished than yesterday. No adventitious sounds. Cardiovascular: Regular rate, No murmurs Abdomen: Bowel Sounds Present, Soft, Non Tender Extremities: No edema, Capillary Refill Less than 3 Seconds Skin: No rashes, No breakdown Musculoskeletal: No Tenderness to Palpation of Joints or Extremities Neurological: Cranial nerves II-XII grossly intact Psych/Mental Status: Normal Affect, Appropriate Vital Signs Temp Pulse Resp BP Pulse Ox 97.8 F 64 18 108/54 L 94 02/12/18 08:43 02/12/18 08:43 02/12/18 08:43 02/12/18 08:43 02/12/18 08:43 Oxygen Flow Rate (L/min) 3 Oxygen Delivery Method Nasal Cannula Weight: 109.905 kg Body Mass Index (BMI) 33.7 Intake and Output for Last 24 Hours 02/10/18 02/11/18 02/12/18 23:59 23:59 23:59 Intake Total 893 / 893 2029 / 2029 120 / 120 Output Total 175 / 175 1450 / 1450 300 / 300 Balance 718 / 718 580 / 580 -180 / -180 Microbiology Past 72 Hours 02/10/18 16:35 Urine Culture - Final Urine, Clean Catch Mixed Gram Positive Organisms 02/11/18 08:00 Gram Stain - Final Sputum, Expectorated/Coughed 02/10/18 16:25 Influenza Types A,B Direct FA (JEOVANNY) - Final Mucosa - Nose Laboratory Tests Past 24 Hrs 02/12/18 02/12/18 07:50 07:50 WBC 28.9 H RBC 4.79 Hgb 11.1 L Hct 38.2 L MCV 79.7 L MCH 23.2 L MCHC 29.1 L RDW 15.4 H RDW Differential 44.6 H Plt Count 415 MPV 9.2 Immature Gran % (Auto) 0.300 Neut % (Auto) 90.6 H Lymph % (Auto) 4.3 L [place] % (Auto) 4.8 Eos % (Auto) 0.0 Baso % (Auto) 0.0 Absolute Neuts (auto) 26.1 H Absolute Lymphs (auto) 1.24 Total Counted Not Reportable Hypochromasia 1+ Microcytosis 1+ Sodium 140 Potassium 3.8 Chloride 101 Carbon Dioxide 32.0 Anion Gap 7 BUN 20 H Creatinine 1.01 Estim Creat Clear Calc 84.91 Est GFR (MDRD) Af Amer 97 Est GFR (MDRD) Non-Af 81 BUN/Creatinine Ratio 19.8 Glucose 151 H Calcium 9.2 POC Glucose 02/12/18 02/11/18 02/11/18 06:54 22:14 16:23 POC Glucose 153 H 187 H 162 H 02/11/18 11:43 POC Glucose 210 H Medical Necessity - Tobacco Use Smoking Status: Former smoker Tobacco Use: Non-smoker Assessment/Plan Active and Suspected Problems (Last Reviewed 02/02/18 @ 08:19 by Prema Louise) COPD exacerbation (Acute) Sepsis (Acute) 1. Acute sepsis 2/2 bronchiectasis with fever 103.2, leukocytosis, tachycardia, tachypnea -continue Levaquin, follow final cultures. Remains afebrile. Persistent leukocytosis 2/2 steroids. 2. Acute COPD exacerbation -Solu-Medrol to prednisone per pulm. Continue aerosols/IS. 3. Chronic hypoxic respiratory failure - baseline 4 at rest 6 with exertion - at baseline. 4. MICHELLE - on trilogy at home, continue BiPAP at night 5.Chronic diastolic CHF - no peripheral edema, BNP negative. Resume lasix when appropriate. No signs of volume overload. 6. HTN - stable now 7. Anxiety - wellbutrin 8. Chronic anemia - microcytic now - check iron/tibc. 9. CAD - prior PTCA and currently with CP. EKG sinus tachy and troponin negative. Maintain on tele. Maintain asa/plavix/statin/metoprolol. 10. T2DM - hold orals. SSI. DVT ppx: Lovenox DC planning: home when stable. Potentially 24-48 hours given current rate of improvement. This patient was seen by Rl Mota PA-C under the supervision of Doctor Genoveva. <Deshaun Tomas - Last Filed: 02/12/18 12:13> Subjective: Eating better but was very short of breath after just walking to the bathroom. - Physical Exam General: Alert, Cooperative, - - Tachypneic. HEENT: Atraumatic, Normocephalic Lungs: Clear to auscultation, Diminished Cardiovascular: Regular rate, Regular Rhythm, Normal S1, Normal S2 Abdomen: Bowel Sounds Present, Soft, Non Tender, Non-Distended Vital Signs Temp Pulse Resp BP Pulse Ox 36.6 C 80 16 108/54 L 94 02/12/18 08:43 02/12/18 11:16 02/12/18 11:16 02/12/18 08:43 02/12/18 08:43 Oxygen Flow Rate (L/min) 3 Oxygen Delivery Method Nasal Cannula Weight: 109.905 kg Body Mass Index (BMI) 33.7 Intake and Output for Last 24 Hours 02/10/18 02/11/18 02/12/18 23:59 23:59 23:59 Intake Total 893 / 893 2030 / 2030 783 / 783 Output Total 175 / 175 1450 / 1450 700 / 700 Balance 718 / 718 580 / 580 83 / 83 Microbiology Past 72 Hours 02/11/18 08:00 Gram Stain - Final Sputum, Expectorated/Coughed Respiratory Culture - Preliminary Appears to be normal respiratory catrachito. Further studies to follow. 02/10/18 16:35 Urine Culture - Final Urine, Clean Catch Mixed Gram Positive Organisms 02/10/18 16:25 Influenza Types A,B Direct FA (JEOVANNY) - Final Mucosa - Nose Laboratory Tests Past 24 Hrs 02/12/18 02/12/18 02/12/18 06:53 07:50 07:50 WBC 28.9 H RBC 4.79 Hgb 11.1 L Hct 38.2 L MCV 79.7 L MCH 23.2 L MCHC 29.1 L RDW 15.4 H RDW Differential 44.6 H Plt Count 415 MPV 9.2 Immature Gran % (Auto) 0.300 Neut % (Auto) 90.6 H Lymph % (Auto) 4.3 L [place] % (Auto) 4.8 Eos % (Auto) 0.0 Baso % (Auto) 0.0 Absolute Neuts (auto) 26.1 H Absolute Lymphs (auto) 1.24 Total Counted Not Reportable Hypochromasia 1+ Microcytosis 1+ Sodium 140 Potassium 3.8 Chloride 101 Carbon Dioxide 32.0 Anion Gap 7 BUN 20 H Creatinine 1.01 Estim Creat Clear Calc 84.91 Est GFR (MDRD) Af Amer 97 Est GFR (MDRD) Non-Af 81 BUN/Creatinine Ratio 19.8 Glucose 151 H Calcium 9.2 Iron 17 L TIBC 381 Iron Saturation 4.5 L POC Glucose 02/12/18 02/12/18 02/11/18 10:36 06:54 22:14 POC Glucose 208 H 153 H 187 H 02/11/18 16:23 POC Glucose 162 H Assessment/Plan Seen and examined independent. I agree with the above note by the physician sugar laboratory assistant. 1. Sepsis Present on admission Secondary to pneumonia No urinary tract infection. Urine culture showing mixed organisms. Patient's urinalysis is negative. 2. Chronic hypoxic and hypercapnic respiratory failure Secondary to COPD exacerbation, sleep apnea, pneumonia. Subjectively unchanged at this time. 3. Acute COPD exacerbation Continue with bronchodilators and Solu-Medrol Pulmonary following 4. Suspected pneumococcal pneumonia Continued pulmonary toilet Continue with IV antibiotics with Levaquin Follow-up sputum culture 5. Disposition: Overall patient is slightly improved. Hopefully patient continues to improve and can be discharged next 24-48 hours. Code Visit Inpatient E&M: 74387 Subs Hosp L2
--- NOTE | 2018-02-12 10:07 | PN_ITS ---
<Rl Mota - Last Filed: 02/12/18 09:59> Patient Problems: Active and Suspected Problems (Last Reviewed 02/02/18 @ 08:19 by Prema Louise ) COPD exacerbation (Acute) Sepsis (Acute) Subjective: Slight improvement in SOB. Dry cough now. No further f/c. Ambulating. On home O2 levels. Mild right anterior chest pain - improved. No dizziness/LH/palp. - Physical Exam General: Alert, Oriented x3, Cooperative HEENT: Atraumatic, PERRLA, EOMI, Normocephalic Neck: Supple, No JVD, Negative Carotid Bruits Lungs: Diminished - slightly less diminished than yesterday. No adventitious sounds. Cardiovascular: Regular rate, No murmurs Abdomen: Bowel Sounds Present, Soft, Non Tender Extremities: No edema, Capillary Refill Less than 3 Seconds Skin: No rashes, No breakdown Musculoskeletal: No Tenderness to Palpation of Joints or Extremities Neurological: Cranial nerves II-XII grossly intact Psych/Mental Status: Normal Affect, Appropriate Vital Signs Temp Pulse Resp BP Pulse Ox 97.8 F 64 18 108/54 L 94 02/12/18 08:43 02/12/18 08:43 02/12/18 08:43 02/12/18 08:43 02/12/18 08:43 Oxygen Flow Rate (L/min) 3 Oxygen Delivery Method Nasal Cannula Weight: 109.905 kg Body Mass Index (BMI) 33.7 Intake and Output for Last 24 Hours 02/10/18 02/11/18 02/12/18 23:59 23:59 23:59 Intake Total 893 / 893 2029 / 2029 120 / 120 Output Total 175 / 175 1450 / 1450 300 / 300 Balance 718 / 718 580 / 580 -180 / -180 Microbiology Past 72 Hours 02/10/18 16:35 Urine Culture - Final Urine, Clean Catch Mixed Gram Positive Organisms 02/11/18 08:00 Gram Stain - Final Sputum, Expectorated/Coughed 02/10/18 16:25 Influenza Types A,B Direct FA (JEOVANNY) - Final Mucosa - Nose Laboratory Tests Past 24 Hrs 02/12/18 02/12/18 07:50 07:50 WBC 28.9 H RBC 4.79 Hgb 11.1 L Hct 38.2 L MCV 79.7 L MCH 23.2 L MCHC 29.1 L RDW 15.4 H RDW Differential 44.6 H Plt Count 415 MPV 9.2 Immature Gran % (Auto) 0.300 Neut % (Auto) 90.6 H Lymph % (Auto) 4.3 L [place] % (Auto) 4.8 Eos % (Auto) 0.0 Baso % (Auto) 0.0 Absolute Neuts (auto) 26.1 H Absolute Lymphs (auto) 1.24 Total Counted Not Reportable Hypochromasia 1+ Microcytosis 1+ Sodium 140 Potassium 3.8 Chloride 101 Carbon Dioxide 32.0 Anion Gap 7 BUN 20 H Creatinine 1.01 Estim Creat Clear Calc 84.91 Est GFR (MDRD) Af Amer 97 Est GFR (MDRD) Non-Af 81 BUN/Creatinine Ratio 19.8 Glucose 151 H Calcium 9.2 POC Glucose 02/12/18 02/11/18 02/11/18 06:54 22:14 16:23 POC Glucose 153 H 187 H 162 H 02/11/18 11:43 POC Glucose 210 H Medical Necessity - Tobacco Use Smoking Status: Former smoker Tobacco Use: Non-smoker Assessment/Plan Active and Suspected Problems (Last Reviewed 02/02/18 @ 08:19 by Prema Louise ) COPD exacerbation (Acute) Sepsis (Acute) 1. Acute sepsis 2/2 bronchiectasis with fever 103.2, leukocytosis, tachycardia, tachypnea -continue Levaquin, follow final cultures. Remains afebrile. Persistent leukocytosis 2/2 steroids. 2. Acute COPD exacerbation -Solu-Medrol to prednisone per pulm. Continue aerosols/IS. 3. Chronic hypoxic respiratory failure - baseline 4 at rest 6 with exertion - at baseline. 4. MICHELLE - on trilogy at home, continue BiPAP at night 5.Chronic diastolic CHF - no peripheral edema, BNP negative. Resume lasix when appropriate. No signs of volume overload. 6. HTN - stable now 7. Anxiety - wellbutrin 8. Chronic anemia - microcytic now - check iron/tibc. 9. CAD - prior PTCA and currently with CP. EKG sinus tachy and troponin negative. Maintain on tele. Maintain asa/plavix/statin/metoprolol. 10. T2DM - hold orals. SSI. DVT ppx: Lovenox DC planning: home when stable. Potentially 24-48 hours given current rate of improvement. This patient was seen by Rl Mota PA-C under the supervision of Doctor Genoveva. <Deshaun Tomas - Last Filed: 02/12/18 12:13> Subjective: Eating better but was very short of breath after just walking to the bathroom. - Physical Exam General: Alert, Cooperative, - - Tachypneic. HEENT: Atraumatic, Normocephalic Lungs: Clear to auscultation, Diminished Cardiovascular: Regular rate, Regular Rhythm, Normal S1, Normal S2 Abdomen: Bowel Sounds Present, Soft, Non Tender, Non-Distended Vital Signs Temp Pulse Resp BP Pulse Ox 36.6 C 80 16 108/54 L 94 02/12/18 08:43 02/12/18 11:16 02/12/18 11:16 02/12/18 08:43 02/12/18 08:43 Oxygen Flow Rate (L/min) 3 Oxygen Delivery Method Nasal Cannula Weight: 109.905 kg Body Mass Index (BMI) 33.7 Intake and Output for Last 24 Hours 02/10/18 02/11/18 02/12/18 23:59 23:59 23:59 Intake Total 893 / 893 2030 / 2030 783 / 783 Output Total 175 / 175 1450 / 1450 700 / 700 Balance 718 / 718 580 / 580 83 / 83 Microbiology Past 72 Hours 02/11/18 08:00 Gram Stain - Final Sputum, Expectorated/Coughed Respiratory Culture - Preliminary Appears to be normal respiratory catrachito. Further studies to follow. 02/10/18 16:35 Urine Culture - Final Urine, Clean Catch Mixed Gram Positive Organisms 02/10/18 16:25 Influenza Types A,B Direct FA (JEOVANNY) - Final Mucosa - Nose Laboratory Tests Past 24 Hrs 02/12/18 02/12/18 02/12/18 06:53 07:50 07:50 WBC 28.9 H RBC 4.79 Hgb 11.1 L Hct 38.2 L MCV 79.7 L MCH 23.2 L MCHC 29.1 L RDW 15.4 H RDW Differential 44.6 H Plt Count 415 MPV 9.2 Immature Gran % (Auto) 0.300 Neut % (Auto) 90.6 H Lymph % (Auto) 4.3 L [place] % (Auto) 4.8 Eos % (Auto) 0.0 Baso % (Auto) 0.0 Absolute Neuts (auto) 26.1 H Absolute Lymphs (auto) 1.24 Total Counted Not Reportable Hypochromasia 1+ Microcytosis 1+ Sodium 140 Potassium 3.8 Chloride 101 Carbon Dioxide 32.0 Anion Gap 7 BUN 20 H Creatinine 1.01 Estim Creat Clear Calc 84.91 Est GFR (MDRD) Af Amer 97 Est GFR (MDRD) Non-Af 81 BUN/Creatinine Ratio 19.8 Glucose 151 H Calcium 9.2 Iron 17 L TIBC 381 Iron Saturation 4.5 L POC Glucose 02/12/18 02/12/18 02/11/18 10:36 06:54 22:14 POC Glucose 208 H 153 H 187 H 02/11/18 16:23 POC Glucose 162 H Assessment/Plan Seen and examined independent. I agree with the above note by the physician certified medical technician assistant. 1. Sepsis * Present on admission * Secondary to pneumonia * No urinary tract infection. Urine culture showing mixed organisms. Patient' s urinalysis is negative. 2. Chronic hypoxic and hypercapnic respiratory failure * Secondary to COPD exacerbation, sleep apnea, pneumonia. * Subjectively unchanged at this time. 3. Acute COPD exacerbation * Continue with bronchodilators and Solu-Medrol * Pulmonary following 4. Suspected pneumococcal pneumonia * Continued pulmonary toilet * Continue with IV antibiotics with Levaquin * Follow-up sputum culture 5. Disposition: Overall patient is slightly improved. Hopefully patient continues to improve and can be discharged next 24-48 hours. Code Visit Inpatient E&M: 72391 Subs Hosp L2
[2018-02-12 10:38] LABS: Iron 17 ug/dL (65-175); Iron Binding Capacity,Total 381 ug/dL (250-450); PERCENT IRON SATURATION 4.5 % (15.0-55.0)
[2018-02-12 11:01] LABS: Bedside Glucose 208 mg/dL (70-110)
[2018-02-12] MEDS: predniSONE 20 MG Tablet 40 MG PO (11:48)
[2018-02-12 16:16] LABS: Bedside Glucose 175 mg/dL (70-110)
[2018-02-12] MEDS: Atorvastatin Calcium 40 MG Tablet PO (21:07)
[2018-02-12 21:36] LABS: Bedside Glucose 203 mg/dL (70-110)
[2018-02-13] VITALS (12 sets, daily range): BP systolic 106–109; BP diastolic 55–76; PULSE 65–96; RESP 12–20; TEMP 36.4–36.7; O2SAT 90–98
[2018-02-13 06:45] LABS: Bedside Glucose 116 mg/dL (70-110)
[2018-02-13] MEDS: Ipratropium/Albuterol Sulfate 3 ML AMPUL.NEB INHALATION ×2 (07:24→10:41)
[2018-02-13] MEDS: predniSONE 20 MG Tablet 40 MG PO (08:30)
[2018-02-13] MEDS: Aspirin 81 MG TAB.CHEW PO (08:30)
[2018-02-13 09:34] LABS: Pathologist Review Reviewed
--- NOTE | 2018-02-13 09:36 | PN_ITS ---
Patient Problems: Active and Suspected Problems (Last Reviewed 02/02/18 @ 08:19 by Prema Louise ) COPD exacerbation (Acute) Sepsis (Acute) Subjective: The patient was seen and examined. He is lying in bed in no acute distress. Remains afebrile and hemodynamically stable. Reports he is about at his baseline respiratory status. Has a chronic cough with occasional sputum production, this has not worsened. Has been ambulating in the room. Wears 4 L at baseline at home and is currently wearing 3 L nasal cannula. Objective: Recent lab and culture data reviewed. Blood culture showed no growth in 48 hours. Influenza screening negative. Urine cultures showing probable contaminants of mixed gram-positive organisms. Respiratory culture showing normal respiratory catrachito. 02/10 CTA of the chest showing heterogenous enhancement of pulmonary arteries limiting evaluation for PE. Diffuse bronchiectasis and COPD. Right upper lobe prominent interstitial markings. Has a left lateral upper abdominal wall hernia versus lipoma. - Physical Exam General: Alert, Oriented x3, Cooperative, No apparent distress, - - No conversational dyspnea HEENT: Atraumatic, Normocephalic Oral: Moist Mucosa Neck: Supple, No Nodes, Trachea Midline Lungs: - - Very diminished throughout with poor air movement, otherwise no rhonchi, wheezes, or rales. Symmetrical expansion, no accessory muscle use. Cardiovascular: Regular rate, Regular Rhythm, Normal S1, Normal S2, No murmurs, No rub noted, No Gallop Abdomen: Bowel Sounds Present, Soft, Non Tender, Non-Distended, Obese Extremities: No cyanosis, No edema, Capillary Refill Less than 3 Seconds, Clubbing Skin: No rashes, No breakdown Musculoskeletal: No Tenderness to Palpation of Joints or Extremities Neurological: Cranial nerves II-XII grossly intact, Neuro grossly intact, Motor Exam 5/5 strength throughout Psych/Mental Status: Alert and oriented to time, place, person, mood and affect Vital Signs Temp Pulse Resp BP Pulse Ox 97.8 F 85 18 109/73 96 02/13/18 08:27 02/13/18 08:27 02/13/18 08:27 02/13/18 08:27 02/13/18 08:27 Oxygen Flow Rate (L/min) 3 Oxygen Delivery Method Nasal Cannula Weight: 242 lb 4.785 oz Body Mass Index (BMI) 33.7 Intake and Output for Last 24 Hours 02/11/18 02/12/18 02/13/18 23:59 23:59 23:59 Intake Total 2029 1263 / 1263 480 / 480 Output Total 1450 / 1450 1275 / 1275 1750 / 1750 Balance 580 / 580 -12 / -12 -1270 / -1270 Microbiology Past 72 Hours 02/11/18 08:00 Gram Stain - Final Sputum, Expectorated/Coughed Respiratory Culture - Final Mixed normal respiratory catrachito. No Haemophilus, Streptococcus pneumoniae, beta-hemolytic Streptococcus or Staphylococcus aureus isolated. 02/10/18 16:35 Urine Culture - Final Urine, Clean Catch Mixed Gram Positive Organisms 02/10/18 16:25 Influenza Types A,B Direct FA (JEOVANNY) - Final Mucosa - Nose Laboratory Tests Past 24 Hrs 02/12/18 06:53 Iron 17 L TIBC 381 Iron Saturation 4.5 L POC Glucose 02/13/18 02/12/18 02/12/18 06:42 21:12 16:03 POC Glucose 116 H 203 H 175 H 02/12/18 10:36 POC Glucose 208 H Medical Necessity - Tobacco Use Smoking Status: Former smoker Tobacco Use: Non-smoker Assessment/Plan Active and Suspected Problems (Last Reviewed 02/02/18 @ 08:19 by Prema Louise ) COPD exacerbation (Acute) Sepsis (Acute) RECOMMENDATIONS: 1. Increase activity as tolerated 2. Continue bronchodilators, oral steroids with taper at discharge, and mucolytic 3. BiPAP with sleep 4. Discontinue antibiotics 5. Ambulatory pulse oximetry prior to discharge 6. Okay to discharge from pulmonary standpoint IMPRESSIONS: 1. Acute on chronic hypoxic and hypercarbic respiratory failure Patient with advanced lung disease at baseline. Patient was last known FEV1 of 20% of predicted. Patient responded well to BiPAP therapy initially. ABG shows compensated CO2 retention with adequate oxygenation. Patient has had a history of Metapneumovirus in the recent past. Unclear if patient has a respiratory infection versus inability to compensate for high fever. Fever has resolved. Continue with BiPAP rescue as necessary. Transitioned to prednisone therapy. 2. COPD exacerbation Patient had PFTs in May which showed severe partially reversible ventilatory defect. See #1. Unclear if patient has been compliant with home trilogy ventilator. Patient did not make an attempt to contact our office prior to presenting for this exacerbation. Patient did have significant fever on presentation. Given advanced lung disease, it is possible the patient was just unable to tolerate the increased metabolic demand of fever. Cultures were negative. Discontinue antibiotics. 3. CAD s/p PTCA/anxiety/hyperlipidemia/hypertension Complicates care, management, recovery, and prognosis. Management per hospitalist. This note was generated with [employer] dictation software. It may contain incorrect words, spelling, and punctuation that were not noted in checking the note before signing.
[2018-02-13] MEDS: 0.9% NaCl Peripheral Flush Adult/Peds IV (10:03)
[2018-02-13] MEDS: levoFLOXacin IV 750 MG/150 ML BAG 100 MG IV (10:03)
[2018-02-13] MEDS: Ferrous Sulfate 325 MG Tablet PO (10:03)
[2018-02-13] MEDS: Metoprolol Tartrate 25 MG Tablet PO (10:04)
[2018-02-13] MEDS: guaiFENesin 1,200 MG Tablet 1200 MG PO (10:04)
[2018-02-13] MEDS: Famotidine 20 MG Tablet PO (10:05)
[2018-02-13] MEDS: Enoxaparin 40 MG/0.4 ML Syringe SC (10:05)
[2018-02-13] MEDS: Furosemide 40 MG Tablet PO (10:05)
[2018-02-13] MEDS: Clopidogrel Bisulfate 75 MG Tablet PO (10:05)
[2018-02-13] MEDS: buPROPion 100 MG Tablet PO (10:05)
--- NOTE | 2018-02-13 11:29 | PCM.DC ---
- Discharge Diagnoses Current Active Problems: Current Active and Chronic Problems (Last Reviewed 02/02/18 @ 08:19 by Prema Louise) COPD exacerbation (Acute) Sepsis (Acute) You will use the following diet at home:: Calorie/Carbohydrate Controlled (specify 1200, 1400, etc) - 1800 latonya / day, Cardiac Your food should be the consistency of: Regular Your liquids should be the consistency of: Regular/Thin Discharge Activity: Return to Normal Activity Allergies/Adverse Reactions: Allergies diazepam [From Valium] Adverse Reaction (Verified 11/11/17 08:02) Vomiting Medications to take at Discharge Aspirin [Aspirin, Baby] 81 mg PO DAILY@0800 10/04/14 Atorvastatin Calcium [Lipitor] 40 mg PO QHS 10/04/14 Cholecalciferol (VIT D3) [Vitamin D3] 1,000 unit PO DAILY 10/04/14 Clopidogrel Bisulfate [Plavix] 75 mg PO DAILY 10/04/14 Furosemide [Lasix] 40 mg PO BID 10/04/14 Multivitamins,Therapeutic [Multivitamin] 1 tab PO DAILY 10/04/14 Budesonide/Formoterol 160/4.5 [Symbicort 160/4.5 Mcg Inhaler (SP)] 2 puff INHALATION BID 02/24/15 Roflumilast [Daliresp] 500 mcg PO DAILY 02/24/15 Potassium Chloride [Klor-Con M10] 20 meq PO BID 04/29/15 Famotidine [Pepcid] 20 mg PO BID 08/01/15 Metformin HCl [Glucophage] 750 mg PO DAILY 08/01/15 Metformin HCl [Glucophage] 500 mg PO QHS 10/08/16 bupropion HCl 100 mg tablet 100 mg PO BID 10/25/17 metoprolol tartrate 25 mg tablet 25 mg PO BID #60 tab 10/27/17 Albuterol Aerosols [Ventolin Aerosols] 2.5 mg INHALATION Q2H PRN PRN #1 box 11/08/17 Ipratropium/Albuterol Sulfate [Duoneb] 3 ml INHALATION Q4H.RT #1 box 11/08/17 Oxygen, Home [Home Oxygen] 4 - 6 lpm NASAL CONT #1 11/08/17 albuterol sulfate HFA 90 mcg/actuation aerosol inhaler 2 puff INHALATION Q4H PRN g 11/11/17 tiotropium bromide 18 mcg capsule with inhalation device 1 cap INHALATION DAILY 11/11/17 prednisone 10 mg tablet 10 mg PO DAILY #30 tab 01/27/18 Cholecalciferol (VIT D3) [Vitamin D3] 1,000 unit PO DAILY tablet 02/13/18 Ferrous Sulfate 325 mg PO BIDCM #60 tab 02/13/18 Levofloxacin [Levaquin] 750 mg PO DAILY #1 tab 02/13/18 Prednisone 10 mg PO DAILY #22 tab 02/13/18 The following prescriptions were given: Ferrous Sulfate 325 mg PO BIDCM #60 tab Levofloxacin [Levaquin] 750 mg PO DAILY #1 tab Prednisone 10 mg PO DAILY #22 tab Primary Care Physician: Kenia Matthew MD [Primary Care Provider] - Please follow up with your Primary Care Physician in: 1-2 weeks Please Follow Up With: Zac Mendez MD When: 2 weeks Please Follow Up With: Lung transplant team When: As directed Proposed Discharge Date: 02/13/18
[2018-02-13 11:35] LABS: Bedside Glucose 189 mg/dL (70-110)
--- NOTE | 2018-02-13 13:31 | PCM.DC.SUM ---
Discharge Date and Diagnosis Date of Admission: 02/10/18 Date of Discharge: 02/13/18 - Primary Discharge Diagnosis Acute sepsis secondary to bronchiectasis Acute COPD exacerbation Chronic hypoxic respiratory failure Obstructive sleep apnea Chronic diastolic congestive heart failure Iron deficiency anemia CAD Type 2 diabetes mellitus Hypertension Anxiety - Secondary Discharge Diagnosis Chronic Problems (Last Reviewed 02/02/18 @ 08:19 by Prema Louise) Tobacco abuse (Chronic) Stage 4 very severe COPD by GOLD classification (Chronic) CAD (coronary artery disease) (Chronic) Type 2 diabetes mellitus (Chronic) Congestive heart failure (Chronic) MICHELLE (obstructive sleep apnea) (Chronic) Presence of stent in coronary artery (Chronic ~07/2006) C w/stenting to prox RCA Atherosclerotic heart disease of [place] coronary artery without angina pectoris (Chronic) [facility] w/stenting to prox RCA 07/15 COPD (chronic obstructive pulmonary disease) (Chronic) Hypertension (Chronic) Hyperlipidemia (Chronic) Hospital Course and Treatment Imaging Results: RAD/Chest 1 View (Portable) IMPRESSION: There are worsened prominent interstitial markings suggesting vascular congestion. CT/CTA Chest W/WO Contrast IMPRESSION: There is heterogeneous enhancement of the pulmonary arteries limiting evaluation for pulmonary embolism. Peripheral pulmonary emboli are not excluded. There is chronic obstructive pulmonary disease. There is mild diffuse bronchiectasis. There is an area of right upper lobe prominent interstitial markings. There is a left lateral upper abdominal wall partially imaged fat-containing hernia versus lipoma. Consults: Andrea / [place] - pulm Operations: None Procedures: None Summary of Care Provided: Physical exam on day of discharge: General: Resting comfortably NAD Psych: A/Ox3 normal affect HEENT: PEARRLA AT NC Neck: Supple NT CV: RRR no m/t/r/g/h Resp: CTA Abd: [id number] Soft NT no guarding or rigidity Ext: DP2+= no edema Skin: W/D normal turgor Lymph/Heme: No active bleeding or adenopathy Neuro: CN2-12 intact Hospital course: The patient is a 57 year old M with a history of severe COPD, chronic hypoxic respiratory failure on 4 L at rest and 6 L with exertion, obstructive sleep apnea on home trilogy, chronic diastolic congestive heart failure, who presented to the emergency room with severe shortness of breath for 1 day along with fevers, tachypnea, tachycardia, and right anterior chest wall chest pain. He had a chest x-ray which was nonspecific, he had a CTA of the chest showing bronchiectasis. He was placed on IV Levaquin for severe sepsis secondary to bronchiectasis, steroids, bronchodilators for acute COPD exacerbation, was started on BiPAP at night. He was placed in the telemetry unit. He improved significantly overnight. Sputum cultures were obtained as he had a very productive cough. No specific lesions were identified in his culture. Influence screen was negative and blood cultures were negative for 48 hours. He is able to be weaned down to baseline oxygen and had no increased needs. He was written for oral Levaquin to complete a total of 5 days of therapy. He was placed on a prednisone taper. Is also mildly anemic with grossly ptosis while he was here and iron panels were checked revealing iron deficiency anemia. He was started on oral iron. He was discharged home, to resume home health care, in stable condition and was advised to follow-up with pulmonology in 2 weeks as well as with his PCP. We also discussed the need for him to make sure he has his follow-up appointment with the [facility] lung transplant team which is planned for later this month. This patient was seen by Rl Mota PA-C under the supervision of Doctor Arce. [] Discharge Diet: Low fat/ Low Cholesterol, 1800 Calorie Control Diet, 2000 mg Sodium Diet Discharge Activity: Return to Normal Activity Home Medications: Medications to take at Discharge Aspirin [Aspirin, Baby] 81 mg PO DAILY@0800 10/04/14 Atorvastatin Calcium [Lipitor] 40 mg PO QHS 10/04/14 Cholecalciferol (VIT D3) [Vitamin D3] 1,000 unit PO DAILY 10/04/14 Clopidogrel Bisulfate [Plavix] 75 mg PO DAILY 10/04/14 Furosemide [Lasix] 40 mg PO BID 10/04/14 Multivitamins,Therapeutic [Multivitamin] 1 tab PO DAILY 10/04/14 Budesonide/Formoterol 160/4.5 [Symbicort 160/4.5 Mcg Inhaler (SP)] 2 puff INHALATION BID 02/24/15 Roflumilast [Daliresp] 500 mcg PO DAILY 02/24/15 Potassium Chloride [Klor-Con M10] 20 meq PO BID 04/29/15 Famotidine [Pepcid] 20 mg PO BID 08/01/15 Metformin HCl [Glucophage] 750 mg PO DAILY 08/01/15 Metformin HCl [Glucophage] 500 mg PO QHS 10/08/16 bupropion HCl 100 mg tablet 100 mg PO BID 10/25/17 metoprolol tartrate 25 mg tablet 25 mg PO BID #60 tab 10/27/17 Albuterol Aerosols [Ventolin Aerosols] 2.5 mg INHALATION Q2H PRN PRN #1 box 11/08/17 Ipratropium/Albuterol Sulfate [Duoneb] 3 ml INHALATION Q4H.RT #1 box 11/08/17 Oxygen, Home [Home Oxygen] 4 - 6 lpm NASAL CONT #1 11/08/17 albuterol sulfate HFA 90 mcg/actuation aerosol inhaler 2 puff INHALATION Q4H PRN g 11/11/17 tiotropium bromide 18 mcg capsule with inhalation device 1 cap INHALATION DAILY 11/11/17 prednisone 10 mg tablet 10 mg PO DAILY #30 tab 01/27/18 Cholecalciferol (VIT D3) [Vitamin D3] 1,000 unit PO DAILY tablet 02/13/18 Ferrous Sulfate 325 mg PO BIDCM #60 tab 02/13/18 Levofloxacin [Levaquin] 750 mg PO DAILY #1 tab 02/13/18 Prednisone 10 mg PO DAILY #22 tab 02/13/18 Following Prescrptions Were Given to Patient: Ferrous Sulfate 325 mg PO BIDCM #60 tab Levofloxacin [Levaquin] 750 mg PO DAILY #1 tab Prednisone 10 mg PO DAILY #22 tab Primary Care Physician: Kenia Matthew MD [Primary Care Provider] - Please follow up with your Primary Care Physician in: 1-2 weeks Please Follow Up With: Zac Mendez MD When: 2 weeks Please Follow Up With: Lung transplant team When: As directed Please Follow Up With: Kenia Matthew MD Disposition: Home with Home Health Minutes spent on discharge:: 35 Patient Condition:: Stable Medical Necessity - Tobacco Use Smoking Status: Former smoker Tobacco Use: Non-smoker Meaningful Use Info Meaningful Use Diagnoses (Choose all that apply): None applicable
--- NOTE | 2018-02-13 13:39 | DS.PCM_ITS ---
Discharge Date and Diagnosis Date of Admission: 02/10/18 Date of Discharge: 02/13/18 - Primary Discharge Diagnosis Acute sepsis secondary to bronchiectasis Acute COPD exacerbation Chronic hypoxic respiratory failure Obstructive sleep apnea Chronic diastolic congestive heart failure Iron deficiency anemia CAD Type 2 diabetes mellitus Hypertension Anxiety - Secondary Discharge Diagnosis Chronic Problems (Last Reviewed 02/02/18 @ 08:19 by Prema Louise) Tobacco abuse (Chronic) Stage 4 very severe COPD by GOLD classification (Chronic) CAD (coronary artery disease) (Chronic) Type 2 diabetes mellitus (Chronic) Congestive heart failure (Chronic) MICHELLE (obstructive sleep apnea) (Chronic) Presence of stent in coronary artery (Chronic ~07/2006) [facility] w/stenting to prox RCA Atherosclerotic heart disease of [place] coronary artery without angina pectoris (Chronic) [facility] w/stenting to prox RCA 07/15 COPD (chronic obstructive pulmonary disease) (Chronic) Hypertension (Chronic) Hyperlipidemia (Chronic) Hospital Course and Treatment Imaging Results: RAD/Chest 1 View (Portable) IMPRESSION: There are worsened prominent interstitial markings suggesting vascular congestion. CT/CTA Chest W/WO Contrast IMPRESSION: There is heterogeneous enhancement of the pulmonary arteries limiting evaluation for pulmonary embolism. Peripheral pulmonary emboli are not excluded. There is chronic obstructive pulmonary disease. There is mild diffuse bronchiectasis. There is an area of right upper lobe prominent interstitial markings. There is a left lateral upper abdominal wall partially imaged fat-containing hernia versus lipoma. Consults: Andrea / [place] - pulm Operations: None Procedures: None Summary of Care Provided: Physical exam on day of discharge: General: Resting comfortably NAD Psych: A/Ox3 normal affect HEENT: PEARRLA AT NC Neck: Supple NT CV: RRR no m/t/r/g/h Resp: CTA Abd: [id number] Soft NT no guarding or rigidity Ext: DP2+= no edema Skin: W/D normal turgor Lymph/Heme: No active bleeding or adenopathy Neuro: CN2-12 intact Hospital course: The patient is a 57 year old M with a history of severe COPD, chronic hypoxic respiratory failure on 4 L at rest and 6 L with exertion, obstructive sleep apnea on home trilogy, chronic diastolic congestive heart failure, who presented to the emergency room with severe shortness of breath for 1 day along with fevers, tachypnea, tachycardia, and right anterior chest wall chest pain. He had a chest x-ray which was nonspecific, he had a CTA of the chest showing bronchiectasis. He was placed on IV Levaquin for severe sepsis secondary to bronchiectasis, steroids, bronchodilators for acute COPD exacerbation, was started on BiPAP at night. He was placed in the telemetry unit. He improved significantly overnight. Sputum cultures were obtained as he had a very productive cough. No specific lesions were identified in his culture. Influence screen was negative and blood cultures were negative for 48 hours. He is able to be weaned down to baseline oxygen and had no increased needs. He was written for oral Levaquin to complete a total of 5 days of therapy. He was placed on a prednisone taper. Is also mildly anemic with grossly ptosis while he was here and iron panels were checked revealing iron deficiency anemia. He was started on oral iron. He was discharged home, to resume home health care, in stable condition and was advised to follow-up with pulmonology in 2 weeks as well as with his PCP. We also discussed the need for him to make sure he has his follow-up appointment with the [facility] lung transplant team which is planned for later this month. This patient was seen by Rl Mota PA-C under the supervision of Doctor Arce. [] Discharge Diet: Low fat/ Low Cholesterol, 1800 Calorie Control Diet, 2000 mg Sodium Diet Discharge Activity: Return to Normal Activity Home Medications: Medications to take at Discharge Aspirin [Aspirin, Baby] 81 mg PO DAILY@0800 10/04/14 Atorvastatin Calcium [Lipitor] 40 mg PO QHS 10/04/14 Cholecalciferol (VIT D3) [Vitamin D3] 1,000 unit PO DAILY 10/04/14 Clopidogrel Bisulfate [Plavix] 75 mg PO DAILY 10/04/14 Furosemide [Lasix] 40 mg PO BID 10/04/14 Multivitamins,Therapeutic [Multivitamin] 1 tab PO DAILY 10/04/14 Budesonide/Formoterol 160/4.5 [Symbicort 160/4.5 Mcg Inhaler (SP)] 2 puff INHALATION BID 02/24/15 Roflumilast [Daliresp] 500 mcg PO DAILY 02/24/15 Potassium Chloride [Klor-Con M10] 20 meq PO BID 04/29/15 Famotidine [Pepcid] 20 mg PO BID 08/01/15 Metformin HCl [Glucophage] 750 mg PO DAILY 08/01/15 Metformin HCl [Glucophage] 500 mg PO QHS 10/08/16 bupropion HCl 100 mg tablet 100 mg PO BID 10/25/17 metoprolol tartrate 25 mg tablet 25 mg PO BID #60 tab 10/27/17 Albuterol Aerosols [Ventolin Aerosols] 2.5 mg INHALATION Q2H PRN PRN #1 box Ipratropium/Albuterol Sulfate [Duoneb] 3 ml INHALATION Q4H.RT #1 box 11/08/17 Oxygen, Home [Home Oxygen] 4 - 6 lpm NASAL CONT #1 11/08/17 albuterol sulfate HFA 90 mcg/actuation aerosol inhaler 2 puff INHALATION Q4H PRN g 11/11/17 tiotropium bromide 18 mcg capsule with inhalation device 1 cap INHALATION DAILY 11/11/17 prednisone 10 mg tablet 10 mg PO DAILY #30 tab 01/27/18 Cholecalciferol (VIT D3) [Vitamin D3] 1,000 unit PO DAILY tablet 02/13/18 Ferrous Sulfate 325 mg PO BIDCM #60 tab 02/13/18 Levofloxacin [Levaquin] 750 mg PO DAILY #1 tab 02/13/18 Prednisone 10 mg PO DAILY #22 tab 02/13/18 Following Prescrptions Were Given to Patient: Ferrous Sulfate 325 mg PO BIDCM #60 tab Levofloxacin [Levaquin] 750 mg PO DAILY #1 tab Prednisone 10 mg PO DAILY #22 tab Primary Care Physician: Kenia Matthew MD [Primary Care Provider] - Please follow up with your Primary Care Physician in: 1-2 weeks Please Follow Up With: Zac Mendez MD When: 2 weeks Please Follow Up With: Lung transplant team When: As directed Please Follow Up With: Kenia Matthew MD Disposition: Home with Home Health Minutes spent on discharge:: 35 Patient Condition:: Stable Medical Necessity - Tobacco Use Smoking Status: Former smoker Tobacco Use: Non-smoker Meaningful Use Info Meaningful Use Diagnoses (Choose all that apply): None applicable
== END 2018-02-13 13:30 | disposition home or self-care (01) | DRG 871 ==
LOC: ED 14:55 → PCU 16:30
PROVIDERS: Physician Assistant; Admitting Provider Internal Medicine; Emergency Provider Emergency Medicine; Family Provider Internal Medicine; PCP Internal Medicine; Visit Provider Internal Medicine
DX: A41.9 Sepsis, unspecified organism (principal); J96.21 Acute and chronic respiratory failure with hypoxia; J96.22 Acute and chronic respiratory failure with hypercapnia; J47.1 Bronchiectasis with (acute) exacerbation; I50.32 Chronic diastolic (congestive) heart failure; R65.20 Severe sepsis without septic shock; I25.10 Atherosclerotic heart disease of native coronary artery without angina pectoris; I11.0 Hypertensive heart disease with heart failure; E11.9 Type 2 diabetes mellitus without complications; F41.9 Anxiety disorder, unspecified; E78.5 Hyperlipidemia, unspecified; G47.33 Obstructive sleep apnea (adult) (pediatric); D50.9 Iron deficiency anemia, unspecified; E66.9 Obesity, unspecified; Z79.84 Long term (current) use of oral hypoglycemic drugs; Z99.81 Dependence on supplemental oxygen; Z79.82 Long term (current) use of aspirin; I25.2 Old myocardial infarction; Z68.33 Body mass index [BMI] 33.0-33.9, adult; Z98.61 Coronary angioplasty status; Z79.899 Other long term (current) drug therapy; Z87.891 Personal history of nicotine dependence
CPT/HCPCS: 36415; 36600; 71045; 71275; 80048; 80053; 81001; 82803; 82962; 83540; 83550; 83605; 83880; 84484; 85025; 87040; 87070; 87086; 87088; 87205; 87804; 93005; 94002; 94003; 94640; 94667; 94668; 97110; 97116; 97162; 97166; 97530; 97802; 99285; J7030; J7050; Q9967; A4216; J0696

== ENCOUNTER 2018-10-14 03:40 | Inpatient (IN) | payer MEDICARE, MEDICAID, SELFPAY ==
[2018-09-14 09:15] VITALS: BMI 32.9
[2018-10-14] VITALS (15 sets, daily range): BP systolic 108–131; BP diastolic 67–84; PULSE 71–122; RESP 12–26; TEMP 36.3–37.2; O2SAT 92–958; BMI 34.0
[2018-10-14] MEDS: Albuterol 2.5 MG/3 ML VIAL.NEB. INHALATION (03:55)
[2018-10-14] MEDS: Ipratropium/Albuterol Sulfate 3 ML AMPUL.NEB INHALATION ×5 (03:55→22:45)
--- NOTE | 2018-10-14 04:02 | RAD_ITS ---
STUDY: X-RAY CHEST REASON FOR EXAM: Male, 58 years old. Shortness of breath. TECHNIQUE: Two AP portable views of the chest. COMPARISON: Chest radiograph dated February 10, 2018. FINDINGS: Cardiac monitoring leads are present. The lungs are hyperexpanded. Bronchovascular markings are prominent throughout both lungs. Appear to be small bilateral pleural effusions. There is mild cardiac enlargement. Normal mediastinum and kim. There is prominence of the pulmonary hilar arteries without peripheral pulmonary vascular congestion, suggesting pulmonary hypertension. Normal visualized aortic arch and descending thoracic aorta. Normal visualized thoracic spine. Normal visualized ribs, clavicles, and shoulders. There is no demonstrated abnormality of the visualized soft tissue structures of the upper abdomen. RAD/Chest 1 View (Portable) IMPRESSION: Mild cardiomegaly and pulmonary congestion. Electronically Signed: Debbie Hernandez MD at 5:50 EST , Service support ,
--- NOTE | 2018-10-14 04:02 | EKG12_ITS ---
Test Reason : Blood Pressure : / mmHG Vent. Rate : 104 BPM Atrial Rate : 104 BPM P-R Int : 122 ms QRS Dur : 082 ms QT Int : 312 ms P-R-T Axes : 064 040 049 degrees QTc Int : 410 ms Sinus tachycardia Otherwise normal ECG Confirmed by ROMAN ROTHMAN, NAIF ([id number]), magazine editor VEE ALEXANDRA ([id number]) on 10/17/2018 8:56:54 AM Referred By: ANTONIO Confirmed By:NAIF OWENS MD
[2018-10-14] MEDS: MethylPREDNISolone 125 MG/2 ML Vial IV (04:11)
[2018-10-14 04:16] LABS: Absolute Lymphocyte Count 1.81 X10^3/ul (0.83-4.51); Absolute Neutrophil Count 6.7 X10^3/uL (2.0-7.7); Basophil# 0.06 X10^3/uL; Basophil% 0.6 % (0-1); Eosinophil# 0.13 X10^3/uL; Eosinophils% 1.3 % (0-5); Hematocrit 41.3 % (40-54); Lymphocyte # 1.81 X10^3/ul (4.0); Lymphocyte % 17.6 % (19-41); Mean Corp Hgb Conc 29.1 g/gl (32-36); Mean Corpuscular Hgb 24.3 pg (27.0-32.0); Mean Corpuscular Volume 83.6 fL (80-94); Mean Platelet Vol. 8.8 fl (6.2-12.0); Monocyte# 1.48 X10^3/uL; Monocyte% 14.4 % (0-10); Neutrophil # 6.74 X10^3/uL (2.7-7.7); Neutrophil % 65.5 % (47-70); POSITIVE COUNT NO; POSITIVE DIFFERENTIAL NO; POSITIVE MORPHOLOGY NO; Platelet Count 341 K/mm3 (150-450); RBC Distribution Width CV 16.8 % (11.6-14.6); RBC Distribution Width SD 51.6 fl (35.1-43.9); Red Blood Count 4.94 M/mm3 (4.6-6.2); White Blood Count 10.3 K/mm3 (4.4-11.0)
[2018-10-14 04:19] LABS: BUN 13 mg/dL (7-18); Creatinine, Serum 1.25 mg/dL (0.70-1.30); Estimated Creatinine Clearance 67.77 ml/min; Glucose 124 mg/dL (74-106)
[2018-10-14 04:20] LABS: Anion Gap 6 (5-15); BUN/Creat Ratio 10.4 RATIO (10-20); Calcium,Total 8.6 mg/dL (8.5-10.1); Chloride 99 mmol/L (98-107); EST Glomerular Filtration Rate 63 mL/min (>60); Est Glom Filt Rate - Afr Amer 76 mL/min (>60); Potassium 3.8 mmol/L (3.5-5.1); Sodium Level 140 mmol/L (136-145)
--- NOTE | 2018-10-14 05:14 | ED.VISSUMM ---
- ER Visit Summary Date of Service: 10/14/18 Chief Complaint: Shortness of breath, COPD History of Present Illness: The patient is a 58 M with a history of COPD who presents with increased shortness of breath. He is on home oxygen. He is in the process of being evaluated for possible lung transplant. Over the past 2 days ago planes of increased cough increased shortness of breath. He states his sputum amount and consistency are essentially unchanged however. He does complain of some rhinorrhea. He has sick contacts with a URI-like illness. He does complain of diarrhea and headache as well. No fevers. No vomiting. He denies pain. Physical Examination: Heart rate 104 respiratory rate 26 pulse ox 93% on 4 L Moist mucous membranes Heart regular rhythm tachycardia Decreased air exchange increased work of breathing and diffuse wheezing Abdomen soft Alert Test Results: EKG shows sinus rhythm at a rate of 104. Labs essentially unremarkable. Chest x-ray on my review does not show any focal infiltrate or pneumothorax. Radiology read is pending. Emergency Department Course and Treatment: Patient was treated with albuterol Atrovent aerosols. He was given IV Solu-Medrol and oral doxycycline. He will be discussed with the hospitalist and admitted for COPD exacerbation. Treatment Plan: [] Disposition: Admit Impression: COPD exacerbation This note was generated with [employer] dictation software. It may contain incorrect words, spelling, and punctuation that were not noted in review of the chart prior to signing ED Disposition - Plan for ED Patient: Chief Complaint: Shortness of Breath Referrals: Kenia Matthew MD [Primary Care Provider] -
--- NOTE | 2018-10-14 05:23 | PCM.HP.STD ---
Problem List (1) COPD exacerbation Status: Acute (2) Stage 4 very severe COPD by GOLD classification Status: Chronic Comment: FEV1 20% of predicted (3) Acute exacerbation of COPD with asthma Status: Acute (4) Old myocardial infarction Status: Chronic History of Present Illness Date of Admission: 10/14/18 Chief Complaint: shortness of breath The patient is a 58 year old M with a significant history of stage IV very severe COPD by gold classification with FEV1 of 20% and on chronic 5 L oxygen per nasal cannula and on trilogy at night and awaiting double lung transplant at [facility]; former smoker; hypertension; diabetes; obstructive sleep apnea; heart failure who presented with 2-day history of progressively worsening shortness of breath that occurs at rest and increases with mild exertion. Associated with symptoms is productive cough of thick, sticky and malodorous white and greenish yellow sputum. Further he has a runny nose; wheezing and sneezing. At the emergency department patient had tachypnea and tachycardia. At emergency department patient was given Vibramycin; Solu-Medrol and breathing treatments. He reports that he has had multiple family members at home with upper respiratory infection syndrome. He denies any fever or chills. Patient and his reports that anytime patient coughs he has loose stools. At emergency department chest x-ray showed mild cardiomegaly and pulmonary congestion suggesting pulmonary hypertension; as well as small bilateral pleural effusion.. Past Medical History Past Medical History (Chronic Problems): Chronic Problems (Last Reviewed 09/14/18 @ 09:04 by Cristina Awan) Tobacco abuse (Chronic) Stage 4 very severe COPD by GOLD classification (Chronic) FEV1 20% of predicted CAD (coronary artery disease) (Chronic) Old myocardial infarction (Chronic) Type 2 diabetes mellitus (Chronic) Congestive heart failure (Chronic) MICHELLE (obstructive sleep apnea) (Chronic) Trilogy with 2 LPM oxygen bleed Presence of stent in coronary artery (Chronic ~07/2006) [facility] w/stenting to prox RCA Atherosclerotic heart disease of [place] coronary artery without angina pectoris (Chronic) [facility] w/stenting to prox RCA 07/15 COPD (chronic obstructive pulmonary disease) (Chronic) Hypertension (Chronic) Hyperlipidemia (Chronic) Medical History: Medical History (Last Reviewed 10/14/18 @ 07:02 by Rock Shen MD) Tobacco abuse (Chronic) Z72.0 Stage 4 very severe COPD by GOLD classification (Chronic) J44.9 FEV1 20% of predicted CAD (coronary artery disease) (Chronic) I25.10 Old myocardial infarction (Chronic) I25.2 Type 2 diabetes mellitus (Chronic) E11.9 Congestive heart failure (Chronic) I50.9 MICHELLE (obstructive sleep apnea) (Chronic) G47.33 Trilogy with 2 LPM oxygen bleed Anxiety (Acute) F41.9 Healthcare-associated pneumonia (Resolved) J18.9 Atherosclerotic heart disease of [place] coronary artery without angina pectoris (Chronic) I25.10 [facility] w/stenting to prox RCA 10 Chronic respiratory failure with hypoxia and hypercapnia (Acute) J96.11, J96.12 Acute respiratory failure with hypoxia and hypercapnia (Inactive) J96.01, J96.02 COPD with acute exacerbation (Acute) J44.1 COPD (chronic obstructive pulmonary disease) (Chronic) J44.9 Hypertension (Chronic) I10 Hyperlipidemia (Chronic) E78.5 Acute respiratory failure with hypoxia and hypercapnia (Inactive) J96.01, J96.02 Anxiety (Inactive) F41.9 COPD with acute exacerbation (Inactive) J44.1 Chronic respiratory failure with hypoxia and hypercapnia (Inactive) J96.11, J96.12 Coronary artery disease (Inactive) I25.10 Status post stent Healthcare-associated pneumonia (Inactive) J18.9 Allergies diazepam [From Valium] Adverse Reaction (Verified 09/14/18 09:05) Vomiting Home Medications: Ambulatory Orders Medication Instructions Recorded Aspirin [Aspirin, Baby] 81 mg PO DAILY@0800 10/04/14 Atorvastatin Calcium [Lipitor] 40 mg PO QHS 10/04/14 Clopidogrel Bisulfate [Plavix] 75 mg PO DAILY 10/04/14 Furosemide [Lasix] 40 mg PO BID 10/04/14 Multivitamins,Therapeutic 1 tab PO DAILY 10/04/14 [Multivitamin] Budesonide/Formoterol 160/4.5 2 puff INHALATION BID 02/24/15 [Symbicort 160/4.5 Mcg Inhaler (SP)] Roflumilast [Daliresp] 500 mcg PO DAILY 02/24/15 Potassium Chloride [Klor-Con M10] 10 meq PO BID 04/29/15 Famotidine [Pepcid] 20 mg PO BID 10/23/15 Metformin HCl [Glucophage] 500 mg PO QHS 10/08/16 bupropion HCl 100 mg tablet 100 mg PO BID 10/25/17 Albuterol Aerosols [Ventolin 2.5 mg INHALATION Q2H PRN PRN #1 11/08/17 Aerosols] box Oxygen, Home [Home Oxygen] 4 - 6 lpm NASAL CONT #1 11/08/17 albuterol sulfate HFA 90 2 puff INHALATION Q4H PRN g 11/11/17 mcg/actuation aerosol inhaler tiotropium bromide 18 mcg capsule 1 cap INHALATION DAILY 11/11/17 with inhalation device Cholecalciferol (VIT D3) [Vitamin 1,000 unit PO DAILY tab 02/13/18 D3] ipratropium bromide 0.02 % 0.5 mg INHALATION Q4H ml 05/01/18 solution for inhalation metoprolol tartrate 25 mg tablet 25 mg PO BID #60 tab 06/02/18 metformin 500 mg tablet 750 mg PO DAILY tab 07/19/18 prednisone 10 mg tablet 10 mg PO DAILY #30 tab 09/08/18 losartan 25 mg tablet 25 mg PO DAILY 09/14/18 Ferrous Sulfate 325 mg PO DAILY 10/14/18 Surgical History: Surgical History (Last Reviewed 10/14/18 @ 07:02 by Rock Shen MD) History of rotator cuff surgery (Resolved) Z98.890 Presence of stent in coronary artery (Chronic) Onset Date: ~07/2006 Z95.5 [facility] w/stenting to prox RCA History of PTCA (Inactive) Z98.61 Surgical History: - - Rotator cuff surgery Psychiatric History: No pertinent psych hx Smoking Status: Former smoker - *Family History Maternal Family History: Family History (Last Reviewed 10/14/18 @ 07:02 by Rock Shen MD) Mother Diabetes Father Heart disease CVA (cerebral vascular accident) Brother Diabetes Asthma History Items: Clotting Disorder - Mother with history of PE following an ankle surgery Paternal Family History: Family History (Last Reviewed 10/14/18 @ 07:02 by Rock Shen MD) Mother Diabetes Father Heart disease CVA (cerebral vascular accident) Brother Diabetes Asthma History Items: Heart Disease Review of Systems Constitutional: Denies: Chills, Fever, Weight Change HEENT: Reports: Sinus Drainage. Denies: Head Aches Cardiovascular: Denies: Chest Pain, Palpitations Respiratory: Reports: Cough, Shortness of breath at rest, Sputum production, Wheezing Gastrointestinal: Denies: Abdominal Pain, Nausea, Vomiting Genitourinary: Denies: Dysuria Musculoskeletal: Denies: Joint Pain, Joint Tenderness Skin: Denies: Rash, Wounds Neurological: Denies: Numbness, Tingling, Focal weakness Psychiatric: Denies: Anxiety, Depression, Homicidal Ideations, Suicidal Ideations Hematologic/ Lymphatic: Denies: Easy Bruising, Easy Bleeding VTE Information - Inpt Only VTE Present on Admission: No VTE Mechan Device Prophylaxis: None VTE Pharm Prophylaxis ordered?: Yes - Physical Exam General: Alert, Oriented x3, Cooperative HEENT: Atraumatic, PERRLA, EOMI, Normocephalic Neck: Supple, No JVD, Negative Carotid Bruits Lungs: Diminished, Tachypneic, Using Accessory Muscles, Wheezes Cardiovascular: No murmurs, Tachycardic Abdomen: Bowel Sounds Present, Soft, Non Tender Extremities: No edema, Capillary Refill Less than 3 Seconds Skin: No rashes, No breakdown Musculoskeletal: No Tenderness to Palpation of Joints or Extremities Neurological: Neuro grossly intact Psych/Mental Status: Normal Affect, Appropriate Vital Signs Temp Pulse Resp BP Pulse Ox 97.4 F L 107 H 26 H 119/81 H 92 10/14/18 03:44 10/14/18 05:08 10/14/18 05:08 10/14/18 05:08 10/14/18 05:08 Oxygen Flow Rate (L/min) 3 Oxygen Delivery Method Nasal Cannula Weight: 110.5 kg Body Mass Index (BMI) 34.0 Laboratory Tests Past 24 Hrs 10/14/18 10/14/18 03:45 03:45 WBC 10.3 RBC 4.94 Hgb 12.0 L Hct 41.3 MCV 83.6 MCH 24.3 L MCHC 29.1 L RDW 16.8 H RDW Differential 51.6 H Plt Count 341 MPV 8.8 Immature Gran % (Auto) 0.600 Neut % (Auto) 65.5 Lymph % (Auto) 17.6 L Josephine % (Auto) 14.4 H Eos % (Auto) 1.3 Baso % (Auto) 0.6 Absolute Neuts (auto) 6.7 Absolute Lymphs (auto) 1.81 Total Counted Not Reportable Sodium 140 Potassium 3.8 Chloride 99 Carbon Dioxide 35.0 H Anion Gap 6 BUN 13 Creatinine 1.25 Estim Creat Clear Calc 67.77 Est GFR (MDRD) Af Amer 76 Est GFR (MDRD) Non-Af 63 BUN/Creatinine Ratio 10.4 Glucose 124 H Calcium 8.6 Assessment/Plan All Active Problems (Last Reviewed 09/14/18 @ 09:04 by Cristina Awan) COPD exacerbation (Acute) Sepsis (Resolved) Acute and chronic respiratory failure with hypoxia (Acute) Acute exacerbation of COPD with asthma (Acute) History of rotator cuff surgery (Resolved) Anxiety (Acute) Healthcare-associated pneumonia (Resolved) Chronic respiratory failure with hypoxia and hypercapnia (Acute) COPD with acute exacerbation (Acute) Acute kidney injury (Resolved) Nicotine dependence (Resolved) Sepsis (Resolved) The patient is a 58 year old M with a significant history of stage IV very severe COPD by gold classification with FEV1 of 20% and on chronic 5 L oxygen per nasal cannula and on trilogy at night and awaiting double lung transplant at [facility]; former smoker; hypertension; diabetes; obstructive sleep apnea; heart failure who presented with 2-day history of progressively worsening shortness of breath that occurs at rest and increases with mild exertion; productive cough; wheezing;; and found to have tachycardia and tachypnea consistent with exacerbation of his underlying COPD; and radiographic evidence of mild cardiomegaly and pleural congestion.. Acute on chronic hypoxemic respiratory failure Secondary to COPD exacerbation CXR independently reviewed confirms mild dependent; cardiomegaly pulmonary congestion; and small pleural effusion left worse than right. His bicarbonate is 35 showing chronic CO2 retainer. Scheduled DuoNeb Albuterol as needed Received Solu-Medrol at the emergency department.Solu-Medrol continued Patient received doxycycline at emergency department. We will start patient on azithromycin. Incentive spirometer and chest physiotherapy ordered. Rapid influenza screen ordered. Oxygen as needed to keep oxygen saturation more than 90%. Mucinex and Flonase ordered Home ICS?LABA changed to ICS only while inpatient and while patient is receiving Duoneb Roflumilast continued. At home he uses trilogy at night. BiPAP ordered while inpatient. Will order BNP to see whether there is no concomitant heart failure exacerbation. CAD status post stent Aspirin, Plavix, and high intensity statin continued Losartan and metoprolol continued Hypertension On admission his blood pressure was fairly stable Metoprolol and losartan continued Trend blood pressures and adjust blood pressure medication as necessary. Heart failure His echocardiogram on October 27, 2017 showed normal ejection fraction of 60%. Likely heart failure is with preserved ejection fraction. He follows up with Dr. Keyes, cardiology Lasix continued. Supplemental potassium continued Diabetes Mellitus On admission his blood glucose was within goal. Metformin continued Anxiety disorder Bupropion Obstructive Sleep apnea BiPAP ordered DVT prophylaxis: subcutaneous Lovenox ordered. Code Visit Inpatient E&M: 57523 Init Hosp L3
[2018-10-14] MEDS: Doxycycline 100 MG CAPSULE PO (05:45)
--- NOTE | 2018-10-14 06:38 | NURSING ---
[address] GONZALEZ
[2018-10-14 08:40] LABS: BNP,B-Type NATRIURETIC PEPTIDE 23.4 pg/mL (0-100)
[2018-10-14 08:56] LABS: Bedside Glucose 209 mg/dL (70-110)
[2018-10-14] MEDS: ROFLUMILAST 500 MCG TABLET PO (11:42)
[2018-10-14 11:55] LABS: Bedside Glucose 248 mg/dL (70-110)
[2018-10-14] MEDS: Clopidogrel Bisulfate 75 MG Tablet PO (12:00)
[2018-10-14] MEDS: guaiFENesin 1,200 MG Tablet 1200 MG PO ×2 (12:00→22:24)
[2018-10-14] MEDS: Aspirin 81 MG TAB.CHEW PO (12:00)
[2018-10-14] MEDS: Multivitamins,Therapeutic Tablet 1 TABLET PO (12:00)
[2018-10-14] MEDS: Ferrous Sulfate 325 MG Tablet PO (12:04)
[2018-10-14] MEDS: Furosemide 40 MG Tablet PO ×2 (12:04→17:12)
[2018-10-14] MEDS: Famotidine 20 MG Tablet PO ×2 (12:05→22:23)
[2018-10-14] MEDS: Metoprolol Tartrate 25 MG Tablet PO ×2 (12:05→22:23)
[2018-10-14] MEDS: buPROPion 100 MG Tablet PO ×2 (12:06→22:26)
[2018-10-14] MEDS: Losartan Potassium 25 MG Tablet PO (12:10)
[2018-10-14] MEDS: Enoxaparin 40 MG/0.4 ML Syringe SC (12:11)
[2018-10-14] MEDS: Glucerna Shake 120 ML LIQUID PO ×2 (12:14→17:11)
[2018-10-14] MEDS: Fluticasone 0.05% 1 SPRAY NASAL.SRY NASAL ×2 (12:14→22:24)
[2018-10-14] MEDS: Insulin Lispro 100 UNIT/ML INSULN.PEN SC ×2 (12:16→17:09)
--- NOTE | 2018-10-14 14:16 | CM.UR ---
sales agent financial report service completed. Met face to face with patient, introduced myself and explained my role. Verbal consent for assessment at this time. Denies needing help with anything except a little with a bath. States his helps him whenever it is necessary. Discussed advance directives. States he has never filled anything out because he doesn't understand it. Gave him the booklet and explained that a social media intern could come and go over it with him, explaining it further. Verb understanding but declined at this time. Instructed if he changes his mind or any needs do arise to let a nurse know. Verb understanding. Omayra Castrejon RN, [facility].
--- NOTE | 2018-10-14 17:20 | PCM.HOSP.N ---
Hospitalist Note Patient was seen and examined today, he still having some expiratory wheezing, he was admitted this morning for exacerbation of COPD. Patient is currently on 4 L via nasal cannula
[2018-10-14 17:26] LABS: Bedside Glucose 177 mg/dL (70-110)
[2018-10-14] MEDS: Ondansetron 4 MG/2 ML Vial IV (20:15)
[2018-10-14] MEDS: Atorvastatin Calcium 40 MG Tablet PO (22:23)
[2018-10-14 22:36] LABS: Bedside Glucose 139 mg/dL (70-110)
[2018-10-14] MEDS: Budesonide Respules 0.5 MG/2 ML AMPUL.NEB. INHALATION (22:45)
[2018-10-15] VITALS (9 sets, daily range): BP systolic 109–124; BP diastolic 68–73; PULSE 82–96; RESP 12–20; TEMP 36.5–36.7; O2SAT 94–99
[2018-10-15] MEDS: Ipratropium/Albuterol Sulfate 3 ML AMPUL.NEB INHALATION ×3 (02:00→11:01)
[2018-10-15] MEDS: Insulin Lispro 100 UNIT/ML INSULN.PEN SC ×2 (06:32→11:48)
[2018-10-15] MEDS: Acetaminophen 325 MG Tablet 650 MG PO (06:33)
[2018-10-15 06:41] LABS: Bedside Glucose 154 mg/dL (70-110)
[2018-10-15] MEDS: Budesonide Respules 0.5 MG/2 ML AMPUL.NEB. INHALATION (07:09)
[2018-10-15] MEDS: Benzonatate 100 MG Capsule PO (07:55)
[2018-10-15] MEDS: Multivitamins,Therapeutic Tablet 1 TABLET PO (07:57)
[2018-10-15] MEDS: Aspirin 81 MG TAB.CHEW PO (07:57)
[2018-10-15] MEDS: Ferrous Sulfate 325 MG Tablet PO (07:59)
[2018-10-15] MEDS: Glucerna Shake 120 ML LIQUID PO ×2 (08:01→13:58)
[2018-10-15] MEDS: ROFLUMILAST 500 MCG TABLET PO (10:36)
[2018-10-15] MEDS: Losartan Potassium 25 MG Tablet PO (10:36)
[2018-10-15] MEDS: buPROPion 100 MG Tablet PO (10:37)
[2018-10-15] MEDS: Furosemide 40 MG Tablet PO (10:37)
[2018-10-15] MEDS: Fluticasone 0.05% 1 SPRAY NASAL.SRY NASAL (10:37)
[2018-10-15] MEDS: Metoprolol Tartrate 25 MG Tablet PO (10:37)
[2018-10-15] MEDS: Famotidine 20 MG Tablet PO (10:38)
[2018-10-15] MEDS: Enoxaparin 40 MG/0.4 ML Syringe SC (10:38)
[2018-10-15] MEDS: guaiFENesin 1,200 MG Tablet 1200 MG PO (10:38)
[2018-10-15] MEDS: Clopidogrel Bisulfate 75 MG Tablet PO (10:39)
--- NOTE | 2018-10-15 11:55 | DCINST_ITS ---
You will use the following diet at home:: Calorie/Carbohydrate Controlled (specify 1200, 1400, etc) - 1800 latonya Your liquids should be the consistency of: Regular/Thin Discharge Activity: Return to Normal Activity Weight Bearing Status: Full weight bearing Allergies/Adverse Reactions: Allergies diazepam [From Valium] Adverse Reaction (Verified 09/14/18 09:05) Vomiting Medications to take at Discharge Aspirin [Aspirin, Baby] 81 mg PO DAILY@0800 10/04/14 Atorvastatin Calcium [Lipitor] 40 mg PO QHS 10/04/14 Clopidogrel Bisulfate [Plavix] 75 mg PO DAILY 10/04/14 Furosemide [Lasix] 40 mg PO BID 10/04/14 Multivitamins,Therapeutic [Multivitamin] 1 tab PO DAILY 10/04/14 Budesonide/Formoterol 160/4.5 [Symbicort 160/4.5 Mcg Inhaler (SP)] 2 puff INHALATION BID 02/24/15 Roflumilast [Daliresp] 500 mcg PO DAILY 02/24/15 Potassium Chloride [Klor-Con M10] 10 meq PO BID 04/29/15 Famotidine [Pepcid] 20 mg PO BID 08/01/15 Metformin HCl [Glucophage] 500 mg PO QHS 10/08/16 bupropion HCl 100 mg tablet 100 mg PO BID 10/25/17 Albuterol Aerosols [Ventolin Aerosols] 2.5 mg INHALATION Q2H PRN PRN #1 box 11/08/17 Oxygen, Home [Home Oxygen] 4 - 6 lpm NASAL CONT #1 11/08/17 albuterol sulfate HFA 90 mcg/actuation aerosol inhaler 2 puff INHALATION Q4H PRN g 11/11/17 tiotropium bromide 18 mcg capsule with inhalation device 1 cap INHALATION DAILY 11/11/17 Cholecalciferol (VIT D3) [Vitamin D3] 1,000 unit PO DAILY tab 02/13/18 ipratropium bromide 0.02 % solution for inhalation 0.5 mg INHALATION Q4H ml 05/01/18 metoprolol tartrate 25 mg tablet 25 mg PO BID #60 tab 06/02/18 metformin 500 mg tablet 750 mg PO BREAKFAST tab 07/19/18 prednisone 10 mg tablet 10 mg PO DAILY #30 tab 09/08/18 losartan 25 mg tablet 25 mg PO DAILY 09/14/18 Budesonide Aerosol [Pulmicort Respules] 0.5 mg INHALATION BID 10/14/18 Ferrous Sulfate 325 mg PO DAILY 10/14/18 Azithromycin [Zithromax] 500 mg PO DAILY #3 tab 10/15/18 Prednisone 10 mg PO UD #30 tab 10/15/18 The following prescriptions were given: Azithromycin [Zithromax] 500 mg PO DAILY #3 tab Prednisone 10 mg PO UD #30 tab Primary Care Physician: Kenia Matthew MD [Primary Care Provider] - Please follow up with your Primary Care Physician in: in 1-2 weeks Test Results: Test results from this visit will be discussed in further detail at your follow- up appointment, if applicable.
[2018-10-15 11:56] LABS: Bedside Glucose 239 mg/dL (70-110)
--- NOTE | 2018-10-15 13:08 | PCM.DC.SUM ---
Discharge Date and Diagnosis Date of Admission: 10/14/18 Date of Discharge: 10/15/18 - Primary Discharge Diagnosis #1 acute exacerbation of COPD #2 tracheobronchitis-from gram-positive bacteria #3 chronic hypoxic respiratory failure #4 CAD #5 hypertension #6 type 2 diabetes No evidence for acute on chronic hypoxic respiratory failure - Secondary Discharge Diagnosis Chronic Problems (Last Reviewed 10/14/18 @ 07:02 by Rock Shen MD) Tobacco abuse (Chronic) Stage 4 very severe COPD by GOLD classification (Chronic) FEV1 20% of predicted CAD (coronary artery disease) (Chronic) Old myocardial infarction (Chronic) Type 2 diabetes mellitus (Chronic) Congestive heart failure (Chronic) MICHELLE (obstructive sleep apnea) (Chronic) Trilogy with 2 LPM oxygen bleed Presence of stent in coronary artery (Chronic ~07/2006) [facility] w/stenting to prox RCA Atherosclerotic heart disease of [place] coronary artery without angina pectoris (Chronic) [facility] w/stenting to prox RCA 07/15 COPD (chronic obstructive pulmonary disease) (Chronic) Hypertension (Chronic) Hyperlipidemia (Chronic) Hospital Course and Treatment Operations: None Procedures: None Summary of Care Provided: The patient is a 58 year old M was seen in the emergency room at [facility] with chief complaint of shortness of breath. Patient has a history of COPD and is on chronic oxygen at home. Evaluation in the emergency room included a chest x-ray which did not show any infiltrate or acute process, labs were unremarkable, patient's pulse ox on 4 L was 93%. On examination, patient had decreased air exchange with expiratory wheezes, he was given DuoNeb aerosols in the emergency room and IV Solu-Medrol as well as oral doxycycline. Patient was admitted to [place] [address] for acute exacerbation of COPD and acute on chronic hypoxic respiratory failure, this examiner did not feel and examining the patient's medical record that he had acute on chronic hypoxic respiratory failure, only chronic hypoxic respiratory failure. Patient was felt to have tracheobronchitis, patient was negative for influenza, a respiratory panel was not obtained however. Patient was treated with IV Solu-Medrol, given IV Zithromax, and aggressive aerosol treatments. On 10/15/18, patient was seen and examined: On examination he appeared in good health and spirits. Vital signs as documented. Skin warm and dry and without overt rashes. Neck without JVD. Lungs-patient had expiratory wheezes over all lung santiago. Heart exam notable for regular rhythm, normal sounds and absence of murmurs, rubs or gallops. Abdomen unremarkable and without evidence of organomegaly, masses, or abdominal aortic enlargement. Extremities nonedematous. Neuro: Cranial nerves II through XII are grossly intact, no focal motor deficits were noted, sensation to light touch and pinprick intact. Psych: Patient is alert and oriented x3, he does not appear anxious or depressed On 10/15/18, patient was seen and examined, although he was still having expiratory wheezes, his oxygen requirement was only 4 L which is what the patient was on at home. I felt that the patient could safely be discharged to home with treatment consisting of oral prednisone, oral Zithromax, and continued aerosol treatments at home. Patient was agreeable to this, he was discharged in stable condition on 10/15/18 - Physical Exam Vital Signs Temp Pulse Resp BP Pulse Ox 97.9 F 93 20 H 117/70 99 10/15/18 07:51 10/15/18 11:01 10/15/18 11:01 10/15/18 10:37 10/15/18 07:51 Oxygen Flow Rate (L/min) 4 Oxygen Delivery Method Nasal Cannula Weight: 110.5 kg Body Mass Index (BMI) 34.0 Intake and Output for Last 24 Hours 10/13/18 10/14/18 10/15/18 23:59 23:59 23:59 Intake Total 700 / 700 1010.6 / 1010.6 Output Total 650 / 650 1050 / 1050 Balance 50 / 50 -39.4 / -39.4 Microbiology Past 72 Hours 10/14/18 08:20 Influenza Types A,B Direct FA (JEOVANNY) - Final Mucosa - Nose POC Glucose 10/15/18 10/15/18 10/14/18 11:43 06:32 22:30 POC Glucose 239 H 154 H 139 H 10/14/18 17:06 POC Glucose 177 H Discharge Activity: Return to Normal Activity Weight Bearing Status: Full weight bearing Home Medications: Medications to take at Discharge Aspirin [Aspirin, Baby] 81 mg PO DAILY@0800 10/04/14 Atorvastatin Calcium [Lipitor] 40 mg PO QHS 10/04/14 Clopidogrel Bisulfate [Plavix] 75 mg PO DAILY 10/04/14 Furosemide [Lasix] 40 mg PO BID 10/04/14 Multivitamins,Therapeutic [Multivitamin] 1 tab PO DAILY 10/04/14 Budesonide/Formoterol 160/4.5 [Symbicort 160/4.5 Mcg Inhaler (SP)] 2 puff INHALATION BID 02/24/15 Roflumilast [Daliresp] 500 mcg PO DAILY 02/24/15 Potassium Chloride [Klor-Con M10] 10 meq PO BID 04/29/15 Famotidine [Pepcid] 20 mg PO BID 08/01/15 Metformin HCl [Glucophage] 500 mg PO QHS 10/08/16 bupropion HCl 100 mg tablet 100 mg PO BID 10/25/17 Albuterol Aerosols [Ventolin Aerosols] 2.5 mg INHALATION Q2H PRN PRN #1 box 11/08/17 Oxygen, Home [Home Oxygen] 4 - 6 lpm NASAL CONT #1 11/08/17 albuterol sulfate HFA 90 mcg/actuation aerosol inhaler 2 puff INHALATION Q4H PRN g 11/11/17 tiotropium bromide 18 mcg capsule with inhalation device 1 cap INHALATION DAILY 11/11/17 Cholecalciferol (VIT D3) [Vitamin D3] 1,000 unit PO DAILY tab 02/13/18 ipratropium bromide 0.02 % solution for inhalation 0.5 mg INHALATION Q4H ml 05/01/18 metoprolol tartrate 25 mg tablet 25 mg PO BID #60 tab 06/02/18 metformin 500 mg tablet 750 mg PO BREAKFAST tab 07/19/18 prednisone 10 mg tablet 10 mg PO DAILY #30 tab 09/08/18 losartan 25 mg tablet 25 mg PO DAILY 09/14/18 Budesonide Aerosol [Pulmicort Respules] 0.5 mg INHALATION BID 10/14/18 Ferrous Sulfate 325 mg PO DAILY 10/14/18 Azithromycin [Zithromax] 500 mg PO DAILY #3 tab 10/15/18 Prednisone 10 mg PO UD #30 tab 10/15/18 Following Prescrptions Were Given to Patient: Azithromycin [Zithromax] 500 mg PO DAILY #3 tab Prednisone 10 mg PO UD #30 tab Primary Care Physician: Kenia Matthew MD [Primary Care Provider] - Please follow up with your Primary Care Physician in: in 1-2 weeks Disposition: Home Minutes spent on discharge:: 32 Patient Condition:: Stable Medical Necessity - Tobacco Use Smoking Status: Former smoker Meaningful Use Info Meaningful Use Diagnoses (Choose all that apply): None applicable Code Visit Inpatient E&M: 02550 Disch Hosp
--- NOTE | 2018-10-15 13:15 | DS.PCM_ITS ---
Discharge Date and Diagnosis Date of Admission: 10/14/18 Date of Discharge: 10/15/18 - Primary Discharge Diagnosis #1 acute exacerbation of COPD #2 tracheobronchitis-from gram-positive bacteria #3 chronic hypoxic respiratory failure #4 CAD #5 hypertension #6 type 2 diabetes No evidence for acute on chronic hypoxic respiratory failure - Secondary Discharge Diagnosis Chronic Problems (Last Reviewed 10/14/18 @ 07:02 by Rock Shen MD) Tobacco abuse (Chronic) Stage 4 very severe COPD by GOLD classification (Chronic) FEV1 20% of predicted CAD (coronary artery disease) (Chronic) Old myocardial infarction (Chronic) Type 2 diabetes mellitus (Chronic) Congestive heart failure (Chronic) MICHELLE (obstructive sleep apnea) (Chronic) Trilogy with 2 LPM oxygen bleed Presence of stent in coronary artery (Chronic ~07/2006) [facility] w/stenting to prox RCA Atherosclerotic heart disease of [place] coronary artery without angina pectoris (Chronic) [facility] w/stenting to prox RCA 07/15 COPD (chronic obstructive pulmonary disease) (Chronic) Hypertension (Chronic) Hyperlipidemia (Chronic) Hospital Course and Treatment Operations: None Procedures: None Summary of Care Provided: The patient is a 58 year old M was seen in the emergency room at [facility] with chief complaint of shortness of breath. Patient has a history of COPD and is on chronic oxygen at home. Evaluation in the emergency room included a chest x-ray which did not show any infiltrate or acute process, labs were unremarkable, patient's pulse ox on 4 L was 93%. On examination, patient had decreased air exchange with expiratory wheezes, he was given DuoNeb aerosols in the emergency room and IV Solu-Medrol as well as oral doxycycline. Patient was admitted to [place] [address] for acute exacerbation of COPD and acute on chronic hypoxic respiratory failure, this examiner did not feel and examining the patient's medical record that he had acute on chronic hypoxic respiratory failure, only chronic hypoxic respiratory failure. Patient was felt to have tracheobronchitis, patient was negative for influenza, a respiratory panel was not obtained however. Patient was treated with IV Solu-Medrol, given IV Zithromax, and aggressive aerosol treatments. On 10/15/18, patient was seen and examined: On examination he appeared in good health and spirits. Vital signs as documented. Skin warm and dry and without overt rashes. Neck without JVD. Lungs-patient had expiratory wheezes over all lung santiago. Heart exam notable for regular rhythm, normal sounds and absence of murmurs, rubs or gallops. Abdomen unremarkable and without evidence of organomegaly, masses, or abdominal aortic enlargement. Extremities nonedematous. Neuro: Cranial nerves II through XII are grossly intact, no focal motor deficits were noted, sensation to light touch and pinprick intact. Psych: Patient is alert and oriented x3, he does not appear anxious or depressed On 10/15/18, patient was seen and examined, although he was still having expiratory wheezes, his oxygen requirement was only 4 L which is what the patient was on at home. I felt that the patient could safely be discharged to home with treatment consisting of oral prednisone, oral Zithromax, and continued aerosol treatments at home. Patient was agreeable to this, he was discharged in stable condition on 10/15/18 - Physical Exam Vital Signs Temp Pulse Resp BP Pulse Ox 97.9 F 93 20 H 117/70 99 10/15/18 07:51 10/15/18 11:01 10/15/18 11:01 10/15/18 10:37 10/15/18 07:51 Oxygen Flow Rate (L/min) 4 Oxygen Delivery Method Nasal Cannula Weight: 110.5 kg Body Mass Index (BMI) 34.0 Intake and Output for Last 24 Hours 10/13/18 10/14/18 10/15/18 23:59 23:59 23:59 Intake Total 700 / 700 1010.6 / 1010.6 Output Total 650 / 650 1050 / 1050 Balance 50 / 50 -39.4 / -39.4 Microbiology Past 72 Hours 10/14/18 08:20 Influenza Types A,B Direct FA (JEOVANNY) - Final Mucosa - Nose POC Glucose 10/15/18 10/15/18 10/14/18 11:43 06:32 22:30 POC Glucose 239 H 154 H 139 H 10/14/18 17:06 POC Glucose 177 H Discharge Activity: Return to Normal Activity Weight Bearing Status: Full weight bearing Home Medications: Medications to take at Discharge Aspirin [Aspirin, Baby] 81 mg PO DAILY@0800 10/04/14 Atorvastatin Calcium [Lipitor] 40 mg PO QHS 10/04/14 Clopidogrel Bisulfate [Plavix] 75 mg PO DAILY 10/04/14 Furosemide [Lasix] 40 mg PO BID 10/04/14 Multivitamins,Therapeutic [Multivitamin] 1 tab PO DAILY 10/04/14 Budesonide/Formoterol 160/4.5 [Symbicort 160/4.5 Mcg Inhaler (SP)] 2 puff INHALATION BID 02/24/15 Roflumilast [Daliresp] 500 mcg PO DAILY 02/24/15 Potassium Chloride [Klor-Con M10] 10 meq PO BID 04/29/15 Famotidine [Pepcid] 20 mg PO BID 08/01/15 Metformin HCl [Glucophage] 500 mg PO QHS 10/08/16 bupropion HCl 100 mg tablet 100 mg PO BID 10/25/17 Albuterol Aerosols [Ventolin Aerosols] 2.5 mg INHALATION Q2H PRN PRN #1 box 11/08/17 Oxygen, Home [Home Oxygen] 4 - 6 lpm NASAL CONT #1 11/08/17 albuterol sulfate HFA 90 mcg/actuation aerosol inhaler 2 puff INHALATION Q4H PRN g 11/11/17 tiotropium bromide 18 mcg capsule with inhalation device 1 cap INHALATION DAILY 11/11/17 Cholecalciferol (VIT D3) [Vitamin D3] 1,000 unit PO DAILY tab 02/13/18 ipratropium bromide 0.02 % solution for inhalation 0.5 mg INHALATION Q4H ml 05/01/18 metoprolol tartrate 25 mg tablet 25 mg PO BID #60 tab 06/02/18 metformin 500 mg tablet 750 mg PO BREAKFAST tab 07/19/18 prednisone 10 mg tablet 10 mg PO DAILY #30 tab 09/08/18 losartan 25 mg tablet 25 mg PO DAILY 09/14/18 Budesonide Aerosol [Pulmicort Respules] 0.5 mg INHALATION BID 10/14/18 Ferrous Sulfate 325 mg PO DAILY 10/14/18 Azithromycin [Zithromax] 500 mg PO DAILY #3 tab 10/15/18 Prednisone 10 mg PO UD #30 tab 10/15/18 Following Prescrptions Were Given to Patient: Azithromycin [Zithromax] 500 mg PO DAILY #3 tab Prednisone 10 mg PO UD #30 tab Primary Care Physician: Kenia Matthew MD [Primary Care Provider] - Please follow up with your Primary Care Physician in: in 1-2 weeks Disposition: Home Minutes spent on discharge:: 32 Patient Condition:: Stable Medical Necessity - Tobacco Use Smoking Status: Former smoker Meaningful Use Info Meaningful Use Diagnoses (Choose all that apply): None applicable Code Visit Inpatient E&M: 27958 Disch Hosp
[2018-10-15] MEDS: predniSONE 20 MG Tablet 40 MG PO (13:58)
--- NOTE | 2018-10-17 13:45 | CASEMGMT ---
ERIK GUTIERREZ DC PHONE CALL DC DATE: 10/15/18 DC DISPOSITION: Home LACE/STRATA: 06/12 Intro role of CM. Pt states he is doing better than in the hospital but continues to not feel well. Has appointment in two weeks. RN BRENDA discussed option to call physician's office or nurse and let them know he is still not feeling well and request sooner appointment. Pt states if he is not feeling better tomorrow he will call. No further questions. No care improvement suggestions. Shyam SORIANO RN CM
== END 2018-10-15 14:16 | disposition home or self-care (01) | DRG 202 ==
LOC: ED 06:13 → MS3 06:24
PROVIDERS: Admitting Provider Hospitalist; Emergency Provider Emergency Medicine; Family Provider Internal Medicine; PCP Internal Medicine; Visit Provider Internal Medicine
DX: J20.8 Acute bronchitis due to other specified organisms (principal); J44.1 Chronic obstructive pulmonary disease with (acute) exacerbation; J96.11 Chronic respiratory failure with hypoxia; I50.30 Unspecified diastolic (congestive) heart failure; J44.0 Chronic obstructive pulmonary disease with (acute) lower respiratory infection; I25.10 Atherosclerotic heart disease of native coronary artery without angina pectoris; G47.33 Obstructive sleep apnea (adult) (pediatric); E78.5 Hyperlipidemia, unspecified; E11.9 Type 2 diabetes mellitus without complications; F41.9 Anxiety disorder, unspecified; I11.0 Hypertensive heart disease with heart failure; Z99.81 Dependence on supplemental oxygen; I25.2 Old myocardial infarction; Z95.5 Presence of coronary angioplasty implant and graft; Z87.891 Personal history of nicotine dependence; Z79.84 Long term (current) use of oral hypoglycemic drugs
CPT/HCPCS: 71045; 80048; 82962; 83880; 85025; 87804; 93005; 94002; 94003; 94640; 94667; 94668; 97161; 97165; 97802; 99285; J7040; A4216; J2405

== ENCOUNTER 2019-01-03 02:27 | Inpatient (IN) | payer MEDICARE, MEDICAID, SELFPAY ==
[2018-12-19 10:33] VITALS: BMI 34.0
[2019-01-03] VITALS (32 sets, daily range): BP systolic 103–138; BP diastolic 65–87; PULSE 90–134; RESP 12–32; TEMP 36.4–38.6; O2SAT 93–99; BMI 34.9; BMI 33.8; BMI 33.9
--- NOTE | 2019-01-03 02:32 | EKG12_ITS ---
Test Reason : SOB Blood Pressure : / mmHG Vent. Rate : 125 BPM Atrial Rate : 125 BPM P-R Int : 116 ms QRS Dur : 082 ms QT Int : 288 ms P-R-T Axes : 064 061 057 degrees QTc Int : 415 ms Sinus tachycardia Otherwise normal ECG Confirmed by ROMAN ROTHMAN, NAIF ([id number]), online content editor ANITA ALFARO ([id number]) on 01/04/2019 1:06:08 PM Referred By: ZAKIYA Confirmed By:NAIF OWENS MD
--- NOTE | 2019-01-03 02:33 | RAD_ITS ---
STUDY: X-RAY CHEST REASON FOR EXAM: Male, 58 years old. Chest pain and shortness of breath. TECHNIQUE: Two AP portable views of the chest. COMPARISON: Chest radiograph dated October 14, 2018. FINDINGS: Cardiac monitoring leads are present. There is hyperinflation of the lungs consistent with chronic obstructive lung disease (COPD). There is a spiculated opacity in the right upper lobe. This nodular opacity measures approximately 1.3 cm in greatest dimension. There appear to be small bilateral pleural effusions. There is borderline cardiomegaly. Normal mediastinum and kim. There is prominence of the pulmonary hilar arteries without peripheral pulmonary vascular congestion. There is atherosclerotic tortuosity of the aortic arch and descending thoracic aorta. There are diffuse degenerative changes of the visualized thoracic spine. Normal visualized ribs, clavicles, and shoulders. There is no demonstrated abnormality of the visualized soft tissue structures of the upper abdomen. RAD/Chest 1 View (Portable) IMPRESSION: 1. Spiculated right upper lobe nodule may represent a neoplasm. 2. COPD and pulmonary congestion. Electronically Signed: Debbie Hernandez MD at 3:36 EDT , Service support ,
[2019-01-03] MEDS: Albuterol 2.5 MG/3 ML VIAL.NEB. INHALATION ×3 (02:45→03:00)
[2019-01-03] MEDS: Ipratropium/Albuterol Sulfate 3 ML AMPUL.NEB INHALATION ×5 (02:45→23:25)
[2019-01-03 02:50] LABS: Absolute Lymphocyte Count 1.79 X10^3/ul (0.83-4.51); Absolute Neutrophil Count 10.6 X10^3/uL (2.0-7.7); Basophil# 0.07 X10^3/uL; Basophil% 0.5 % (0-1); Eosinophil# 0.17 X10^3/uL; Eosinophils% 1.2 % (0-5); Hemoglobin 12.5 g/dl (13.0-16.5); Lymphocyte # 1.79 X10^3/ul (4.0); Lymphocyte % 12.7 % (19-41); Mean Corp Hgb Conc 27.8 g/gl (32-36); Mean Corpuscular Hgb 24.3 pg (27.0-32.0); Mean Corpuscular Volume 87.5 fL (80-94); Mean Platelet Vol. 8.8 fl (6.2-12.0); Monocyte# 1.19 X10^3/uL; Monocyte% 8.5 % (0-10); Neutrophil # 10.62 X10^3/uL (2.7-7.7); Neutrophil % 75.5 % (47-70); Platelet Count 410 K/mm3 (150-450); RBC Distribution Width CV 15.5 % (11.6-14.6); RBC Distribution Width SD 49.3 fl (35.1-43.9); Red Blood Count 5.14 M/mm3 (4.6-6.2); White Blood Count 14.1 K/mm3 (4.4-11.0)
[2019-01-03 02:56] LABS: POSITIVE DIFFERENTIAL NO
[2019-01-03 02:57] LABS: POSITIVE COUNT NO; POSITIVE MORPHOLOGY NO
[2019-01-03 03:12] LABS: Anion Gap 2 (5-15); BUN 16 mg/dL (7-18); BUN/Creat Ratio 12.8 RATIO (10-20); Calcium,Total 8.6 mg/dL (8.5-10.1); Chloride 100 mmol/L (98-107); Creatinine, Serum 1.25 mg/dL (0.70-1.30); EST Glomerular Filtration Rate 63 mL/min (>60); Est Glom Filt Rate - Afr Amer 76 mL/min (>60); Estimated Creatinine Clearance 67.77 ml/min; Glucose 143 mg/dL (74-106); Potassium 3.8 mmol/L (3.5-5.1); Sodium Level 140 mmol/L (136-145)
[2019-01-03 03:15] LABS: Allen Test POS; Base Excess 12 mmol/L (-2 to +2); Bicarbonate 37.1 mmol/L (22-26); Blood Gas Specimen Type ART; EPAP 8; FI02 35; IPAP 14; PO2 71 mmHG (75-100); RR 12; SITE L Radial; SO2 93 % (95-99); Time Given 305; Total Carbon Dioxide 39 mmol/L; pCO2 65.4 mmHg (35-45); pH 7.36 (7.35-7.45)
[2019-01-03 03:17] LABS: Lactic Acid 1.3 mmol/L (0.4-2.0)
--- NOTE | 2019-01-03 04:06 | ED.VISSUMM ---
- ER Visit Summary Date of Service: 01/03/19 Chief Complaint: Fever, body aches, wheezing History of Present Illness: The patient is a 58 M with a history of COPD on 4 L of home oxygen continuously presents with 2 to 3 days of gradual onset fever, chills, body aches, myalgias, dry cough, and wheezing. This feels like a COPD exacerbation to him but he is also concerned about influenza. His cough has been nonproductive. No chest pain or orthopnea. No lower extremity edema. Was given a DuoNeb and 125 mg of IV Solu-Medrol by EMS. Physical Examination: He is in moderate to severe distress on arrival. He was placed immediately on BiPAP. He has diffuse wheezing in all lung santiago and was not moving air well initially. He has no lower extremity edema or tenderness along the lower extremity venous system. He does have strong pulses in all extremities. Mental status and neurologic exam are normal. Test Results: Flu swab was negative however he has fairly classic influenza symptoms and it certainly could be a false negative given the high local prevalence currently. Chest x-ray is clear. No obvious infiltrate and his cough is been nonproductive so he was not given antibiotics. He does have a leukocytosis and a fever of 101.4. Blood cultures were sent. Lactic acid pending. Emergency Department Course and Treatment: He was placed on BiPAP. Unable to be weaned in the emergency department. Looks much better on reexamination and does not appear to require intubation but not ready to come off BiPAP. I do feel he meets criteria for full admission. He will be admitted to ICU. Treatment Plan: Disposition: Full admission, ICU Impression: Initial encounter influenza-like illness, initial encounter acute respiratory failure, initial encounter COPD exacerbation This note was generated with [employer] dictation software. It may contain incorrect words, spelling, and punctuation that were not noted in review of the chart prior to signing ED Disposition - Plan for ED Patient: Referrals: Kenia Matthew MD [Primary Care Provider] -
--- NOTE | 2019-01-03 04:09 | ED.DCSUM_ITS ---
- ER Visit Summary Date of Service: 01/03/19 Chief Complaint: Fever, body aches, wheezing History of Present Illness: The patient is a 58 M with a history of COPD on 4 L of home oxygen continuously presents with 2 to 3 days of gradual onset fever, chills, body aches, myalgias, dry cough, and wheezing. This feels like a COPD exacerbation to him but he is also concerned about influenza. His cough has been nonproductive. No chest pain or orthopnea. No lower extremity edema. Was given a DuoNeb and 125 mg of IV Solu-Medrol by EMS. Physical Examination: He is in moderate to severe distress on arrival. He was placed immediately on BiPAP. He has diffuse wheezing in all lung santiago and was not moving air well initially. He has no lower extremity edema or tenderness along the lower extremity venous system. He does have strong pulses in all extremities. Mental status and neurologic exam are normal. Test Results: Flu swab was negative however he has fairly classic influenza symptoms and it certainly could be a false negative given the high local prev alence currently. Chest x-ray is clear. No obvious infiltrate and his cough is been nonproductive so he was not given antibiotics. He does have a leukocytosis and a fever of 101.4. Blood cultures were sent. Lactic acid pending. Emergency Department Course and Treatment: He was placed on BiPAP. Unable to be weaned in the emergency department. Looks much better on reexamination and does not appear to require intubation but not ready to come off BiPAP. I do feel he meets criteria for full admission. He will be admitted to ICU. Treatment Plan: Disposition: Full admission, ICU Impression: Initial encounter influenza-like illness, initial encounter acute respiratory failure, initial encounter COPD exacerbation This note was generated with [employer] dictation software. It may contain incorrect words, spelling, and punctuation that were not noted in review of the chart prior to signing ED Disposition - Plan for ED Patient: Referrals: Kenia Matthew MD [Primary Care Provider] -
[2019-01-03] MEDS: Oseltamivir Phosphate 75 MG Capsule PO ×2 (04:24→21:21)
[2019-01-03] MEDS: Acetaminophen 325 MG Tablet 650 MG PO (04:25)
--- NOTE | 2019-01-03 04:27 | HP.PCM_ITS ---
Problem List (1) Acute exacerbation of COPD with asthma Status: Acute (2) Hypertension Status: Chronic Qualifiers: Hypertension type: essential hypertension Qualified Code(s): I10 - Essential (primary) hypertension History of Present Illness Date of Admission: 01/03/19 Chief Complaint: SHORTNESS OF BREATH The patient is a 58 year old M with a significant history of very severe COPD on 4 L of home oxygen; morbid obesity; former tobacco abuse; diabetes mellitus; CAD status post stent who was brought to the ED by the paramedics because of of 2-3-day history of progressively worsening shortness of breath. Associated with his symptoms is wheezing; productive cough of different colored sputum; body aches; extremity fever and chills. Enroute to the hospital paramedics placed him on a breathing mask; and he received Solu-Medrol and breathing treatments. Past Medical History Past Medical History (Chronic Problems): Chronic Problems (Last Reviewed 01/03/19 @ 05:42 by Rock Shen MD) Tobacco abuse (Chronic) Stage 4 very severe COPD by GOLD classification (Chronic) FEV1 20% of predicted CAD (coronary artery disease) (Chronic) Old myocardial infarction (Chronic) Type 2 diabetes mellitus (Chronic) Congestive heart failure (Chronic) MICHELLE (obstructive sleep apnea) (Chronic) Trilogy with 2 LPM oxygen bleed Presence of stent in coronary artery (Chronic ~07/2006) [facility] w/stenting to prox RCA Atherosclerotic heart disease of [place] coronary artery without angina pectoris (Chronic) C w/stenting to prox RCA 07/15 COPD (chronic obstructive pulmonary disease) (Chronic) Hypertension (Chronic) Hyperlipidemia (Chronic) Medical History: Medical History (Last Reviewed 01/03/19 @ 05:42 by Rock Shen MD) Tobacco abuse (Chronic) Z72.0 Stage 4 very severe COPD by GOLD classification (Chronic) J44.9 FEV1 20% of predicted CAD (coronary artery disease) (Chronic) I25.10 Old myocardial infarction (Chronic) I25.2 Type 2 diabetes mellitus (Chronic) E11.9 Congestive heart failure (Chronic) I50.9 MICHELLE (obstructive sleep apnea) (Chronic) G47.33 Trilogy with 2 LPM oxygen bleed Anxiety (Acute) F41.9 Healthcare-associated pneumonia (Resolved) J18.9 Atherosclerotic heart disease of [place] coronary artery without angina pectoris (Chronic) I25.10 [facility] w/stenting to prox RCA 07/15 Chronic respiratory failure with hypoxia and hypercapnia (Acute) J96.11, J96.12 Acute respiratory failure with hypoxia and hypercapnia (Inactive) J96.01, J96.02 COPD with acute exacerbation (Acute) J44.1 COPD (chronic obstructive pulmonary disease) (Chronic) J44.9 Hypertension (Chronic) I10 Hyperlipidemia (Chronic) E78.5 Acute respiratory failure with hypoxia and hypercapnia (Inactive) J96.01, J96.02 Anxiety (Inactive) F41.9 COPD with acute exacerbation (Inactive) J44.1 Chronic respiratory failure with hypoxia and hypercapnia (Inactive) J96.11, J96.12 Coronary artery disease (Inactive) I25.10 Status post stent Healthcare-associated pneumonia (Inactive) J18.9 Allergies diazepam [From Valium] Adverse Reaction (Verified 01/03/19 02:33) Vomiting Home Medications: Ambulatory Orders Medication Instructions Recorded Aspirin [Aspirin, Baby] 81 mg PO DAILY@0800 10/04/14 Atorvastatin Calcium [Lipitor] 40 mg PO QHS 10/04/14 Clopidogrel Bisulfate [Plavix] 75 mg PO DAILY 10/04/14 Furosemide [Lasix] 40 mg PO BID 10/04/14 Multivitamins,Therapeutic 1 tab PO DAILY 10/04/14 [Multivitamin] Budesonide/Formoterol 160/4.5 2 puff INHALATION BID 02/24/15 [Symbicort 160/4.5 Mcg Inhaler (SP)] Roflumilast [Daliresp] 500 mcg PO DAILY 02/24/15 Famotidine [Pepcid] 20 mg PO BID 08/01/15 Metformin HCl [Glucophage] 500 mg PO QHS 10/08/16 bupropion HCl 100 mg tablet 100 mg PO BID 10/25/17 Albuterol Aerosols [Ventolin 2.5 mg INHALATION Q2H PRN PRN #1 11/08/17 Aerosols] box Oxygen, Home [Home Oxygen] 4 - 6 lpm NASAL CONT #1 11/08/17 albuterol sulfate HFA 90 2 puff INHALATION Q4H PRN g 11/11/17 mcg/actuation aerosol inhaler tiotropium bromide 18 mcg capsule 1 cap INHALATION DAILY 11/11/17 with inhalation device Cholecalciferol (VIT D3) [Vitamin 1,000 unit PO DAILY tab 02/13/18 D3] ipratropium bromide 0.02 % 0.5 mg INHALATION Q4H ml 05/01/18 solution for inhalation metformin 500 mg tablet 750 mg PO BREAKFAST tab 07/19/18 prednisone 10 mg tablet 10 mg PO DAILY #30 tab 09/08/18 losartan 25 mg tablet 25 mg PO DAILY 09/14/18 Budesonide Aerosol [Pulmicort 0.5 mg INHALATION BID 10/14/18 Respules] Ferrous Sulfate 325 mg PO DAILY 10/14/18 metoprolol tartrate 25 mg tablet 25 mg PO BID #60 tab 12/08/18 azelastine 137 mcg (0.1 %) nasal 1 spray INTRANASAL BID #30 ml 12/19/18 spray aerosol clotrimazole 10 mg nitish 10 mg MUCOUS MEMBRANE TID #90 tab 12/19/18 Surgical History: Surgical History (Last Reviewed 01/03/19 @ 05:42 by Rock Shen MD) History of rotator cuff surgery (Resolved) Z98.890 Presence of stent in coronary artery (Chronic) Onset Date: ~07/2006 Z95.5 [facility] w/stenting to prox RCA History of PTCA (Inactive) Z98.61 Surgical History: - - Rotator cuff surgery Psychiatric History: No pertinent psych hx Lives: Spouse/ Significant Other Smoking Status: Former smoker - *Family History Maternal Family History: Family History (Last Reviewed 01/03/19 @ 05:43 by Rock Shen MD) Mother Diabetes Father Heart disease CVA (cerebral vascular accident) Brother Diabetes Asthma History Items: Clotting Disorder - Mother with history of PE following an ankle surgery Paternal Family History: Family History (Last Reviewed 01/03/19 @ 05:43 by Rock Shen MD) Mother Diabetes Father Heart disease CVA (cerebral vascular accident) Brother Diabetes Asthma History Items: Heart Disease Review of Systems Constitutional: Reports: Chills, Fever - Subjective. Denies: Weight Change HEENT: Denies: Head Aches, Sinus Congestion, Sinus Drainage Cardiovascular: Denies: Chest Pain, Palpitations Respiratory: Reports: Cough, Shortness of breath at rest, Sputum production, Wheezing Gastrointestinal: Denies: Abdominal Pain, Nausea, Vomiting Genitourinary: Denies: Dysuria Musculoskeletal: Denies: Joint Pain, Joint Tenderness Skin: Denies: Rash, Wounds Neurological: Denies: Numbness, Tingling, Focal weakness Psychiatric: Denies: Anxiety, Depression, Homicidal Ideations, Suicidal Ideations Hematologic/ Lymphatic: Denies: Easy Bruising, Easy Bleeding VTE Information - Inpt Only VTE Present on Admission: No VTE Mechan Device Prophylaxis: None VTE Pharm Prophylaxis ordered?: Yes - Physical Exam General: Alert, Oriented x3, - - Patient was on a BiPAP at the time of examination. HEENT: Atraumatic, Normocephalic Neck: Supple, No JVD Lungs: Rhonchi, Tachypneic, Using Accessory Muscles Cardiovascular: Normal S1, Normal S2, No murmurs, Tachycardic Abdomen: Bowel Sounds Present, Soft, Non Tender Extremities: No edema, Capillary Refill Less than 3 Seconds Skin: No rashes, No breakdown Musculoskeletal: No Tenderness to Palpation of Joints or Extremities Neurological: Neuro grossly intact Psych/Mental Status: Anxious Vital Signs Temp Pulse Resp BP Pulse Ox 101.4 F H 123 H 28 H 106/75 96 01/03/19 03:50 01/03/19 03:50 01/03/19 03:50 01/03/19 03:50 01/03/19 03:50 Oxygen Flow Rate (L/min) 4 Oxygen Delivery Method Bi-pap Weight: 113.8 kg Body Mass Index (BMI) 34.9 Microbiology Past 72 Hours 01/03/19 03:20 Influenza Types A,B Direct FA (JEOVANNY) - Final Mucosa - Nasopharyngeal Laboratory Tests Past 24 Hrs 01/03/19 01/03/19 01/03/19 02:40 02:40 02:40 WBC 14.1 H RBC 5.14 Hgb 12.5 L Hct 45.0 MCV 87.5 MCH 24.3 L MCHC 27.8 L RDW 15.5 H RDW Differential 49.3 H Plt Count 410 MPV 8.8 Immature Gran % (Auto) 1.600 H Neut % (Auto) 75.5 H Lymph % (Auto) 12.7 L Brule % (Auto) 8.5 Eos % (Auto) 1.2 Baso % (Auto) 0.5 Absolute Neuts (auto) 10.6 H Absolute Lymphs (auto) 1.79 Total Counted Not Reportable Specimen Type Sample Site pH Bicarbonate Actual POC Total CO2 Base Excess O2 Saturation O2 % ABG pCO2 ABG pO2 Paco Test Respiration Rate O2 Delivery Device EPAP IPAP Blood Gas Notified Whom Blood Gas Notified Time Sodium 140 Potassium 3.8 Chloride 100 Carbon Dioxide 38.0 H Anion Gap 2 L BUN 16 Creatinine 1.25 Estim Creat Clear Calc 67.77 Est GFR (MDRD) Af Amer 76 Est GFR (MDRD) Non-Af 63 BUN/Creatinine Ratio 12.8 Glucose 143 H Lactic Acid 1.3 Calcium 8.6 Troponin I < 0.015 01/03/19 03:10 WBC RBC Hgb Hct MCV MCH MCHC RDW RDW Differential Plt Count MPV Immature Gran % (Auto) Neut % (Auto) Lymph % (Auto) Brule % (Auto) Eos % (Auto) Baso % (Auto) Absolute Neuts (auto) Absolute Lymphs (auto) Total Counted Specimen Type ART Sample Site L Radial pH 7.36 Bicarbonate Actual 37.1 H POC Total CO2 39 Base Excess 12 H O2 Saturation 93 L O2 % 35 ABG pCO2 65.4 H ABG pO2 71 L Paco Test POS Respiration Rate 12 O2 Delivery Device Bi / C PAP EPAP 8 IPAP 14 Blood Gas Notified Whom ED MD Blood Gas Notified Time 305 Sodium Potassium Chloride Carbon Dioxide Anion Gap BUN Creatinine Estim Creat Clear Calc Est GFR (MDRD) Af Amer Est GFR (MDRD) Non-Af BUN/Creatinine Ratio Glucose Lactic Acid Calcium Troponin I Assessment/Plan All Active Problems (Last Reviewed 01/03/19 @ 05:42 by Rock Shen MD) COPD exacerbation (Acute) Sepsis (Resolved) Acute and chronic respiratory failure with hypoxia (Acute) Acute exacerbation of COPD with asthma (Acute) History of rotator cuff surgery (Resolved) Anxiety (Acute) Healthcare-associated pneumonia (Resolved) Chronic respiratory failure with hypoxia and hypercapnia (Acute) COPD with acute exacerbation (Acute) Acute kidney injury (Resolved) Nicotine dependence (Resolved) Sepsis (Resolved) The patient is a 58 year old M with a significant history of very severe COPD on 4 L of home oxygen; morbid obesity; former tobacco abuse; CAD status post stent who was brought to the ED by the paramedics because of because of 2-3-day history of progressively worsening shortness of breath; wheezing productive cough; body aches; fever and chills consistent with acute COPD exacerbation with likely viral etiology. Acute exacerbation of COPD CXR showed speculated right upper lobe nodule; hyperinflation and pulmonary congestion. Chest x-ray was independently reviewed. I agree with radiologist's interpretation. Chest x-ray on 10/14/2018 was reviewed with the emergency department doctor and it appeared to have the same mass on right upper lobe as on presentation chest x-ray. But probably more pronounced at his visits. Also present was vascular congestion. Patient reports that in the past something was found on his chest x-ray and you followed up with imaging to resolution. This was done at [facility]. He reported that he go to [facility] as he is pursuing lung transplant and have a scheduled appointment on February 06, 2019. We will obtain records from [facility]. Order to obtain records placed Scheduled DuoNeb Albuterol as needed Solu-Medrol was given by the squad. We will continue Solu-Medrol Patient noted to have a temperature of 100.4 received azithromycin at the emergency department. Azithromycin continued. Rapid influenza screen at the emergency department was unremarkable. Will obtain comprehensive respiratory pathogen panel. On BiPAP; continue BiPAP. De-escalate as necessary. Acute on chronic hypoxic and hypercapnic Patient is on home oxygen but required step up therapy of oxygen per mask enroute to the hospital. Because of respiratory distress patient was placed on BiPAP at the emergency department. Patient with bicarbonate of 37.1 which renal compensation of chronic hypercapnia. PH 7.36 shows appropriate compensation. Patient meets SIRS criteria with tachycardia; tachypnea; temperature of 101.4 and leukocytosis with white count of 14.1; as well as bandemia of 1.6%. It is more probable that patient has a COPD exacerbation. His lung does not show any consolidation. Probable influenza Received Tamiflu at the emergency department We will continue Tamiflu for now. Rapid influenza screen was negative Compressive respiratory panel ordered. If negative consider discontinuing Tamiflu. Spiculated Lung Mass Plan as above Diabetes mellitus On presentation his blood his blood glucose on BMP was unremarkable. Due to his severe sickness patient is at risk of lactic acidosis and we will not restart his home metformin. Patient is n.p.o. whiles on BiPAP. Patient is receiving Solu-Medrol which may cause his blood glucose to increase. We will put patient Accu-Chek every 6 hours while n.p.o. and on correction scale short acting regimen. Consider changing to [facility] accuchecks and coverage when patient is off BiPAP and eating. Congestive heart failure Home Lasix continued Hypertension On presentation his blood pressure was within goal Losartan continued Trend blood pressure and adjust blood pressure medication Chronic anemia Ferrous sulfate continued CAD status post stent Aspirin, Plavix, and Lipitor continued Losartan continued Depression Bupropion continued. DVT prophylaxis Subcutaneous Lovenox. CODE STATUS: Full code. Initially patient stated that he would want chest compression but not intubation. Explained to patient that typically during chest compression or after chest compression patient's are to sick to breathe on their own and they may be in respiratory arrest too and ends up requiring intubation. Shared decision that patient be a full code and if necessary patient's that patient stated that is his power of collections attorney can be contacted. [id number] counseling and discussion of advance care planning was 20 minutes. Code Visit Inpatient E&M: 36176 Init Hosp L3 Procedures: 71502 Advncd Care Plan 30 Min
--- NOTE | 2019-01-03 09:19 | CASEMGMT ---
RN BRENDA FAIRING MAN CM to room to meet with patient for initial transition planning/care coordination assessment. RN BREDNA introduced self and role at [facility]. Pt voices understanding and consents to assessment at this time. Pt resting in bed in no distress at this time. BIPAP in place but pt able to answer questions appropriately. Pt is A/O. Care providers, pharmacy, and demographics verified/updated at this time. PCP: Tiff Specialists: Stephy Mendez. [facility] [place] to lung specialist. is in the process of getting on lung transplat list. Preferred Pharmacy: [facility] Insurance: [employer]. Care Managers name is Cecilia or Kenia. Does not have Waiver program and does not have home assistance. Prescription Benefit: Yes Living Will/HPOA: does not have LW or HCPOA . Was provided with AD info during admission in October. States thinks he still has it but is not sure. Provided with info again and given Social Service rac card with number to call if chooses in the future to utilize [facility] social work for advanced directive completion. Pt stated will think about it re: talking with SW while he is @ [facility]. Instructed to let staff know if he decides would like to talk with SW. Educated patient that, if patient so chooses, can come back to [facility] and meet with a SW as an outpatient to complete health care advanced directives. Patient expresses understanding. LNOK: , 2 daughters and 1 son. Living Arrangements: Lives in [place] [facility] with his , oldest daughter, and 2 grandchildren. Younger daughter lives across the street and son lives in [place]. has not seen his son for about a year. Is independent with most ADL's, but does assist with bathing. Bathes in garden tub bath. manages medications and doctor appts and most medical accounts receivable specialist such as cooking and cleaning. Transportation: Pt states drives self and states no transportation concerns at this time. also drives. DME: States has the following DME: Has a cane but does not use it. Has Trilogy and O2 @ 4 L/M continuous thru [employer] and has a nebulizer. Has a cane but states does not use it. Uses a power chair. Has a Glucometer and checks BS's 2 x's/day but does not take insulin. States glucometer functions properly and has all needed supplies for it. Pt states no need for further DME at this time. HHC/SNF: No hx of either and denies needs for HHC. PT/OT evals pending. Pt wishes to return home and states has no concerns with going home at time of discharge. Pt states does not smoke or drink ETOH. States used to smoke but quit cold turkey 4 yrs ago. CM to follow for home oxygen needs and any further discharge planning/needs. Pt voices no further concerns/needs at this time. Advised pt to ask for CM if any further questions/concerns/needs arise. Voices understanding. PLAN: Home with spousal support. PT/OT evals pending. Bharti SORIANO RN CM
[2019-01-03] MEDS: Multivitamins,Therapeutic Tablet 1 TABLET PO (10:56)
[2019-01-03] MEDS: Aspirin 81 MG TAB.CHEW PO (10:56)
[2019-01-03] MEDS: Azelastine HCl NASAL.SRY 1 SPRAY NASAL ×2 (10:57→21:20)
[2019-01-03] MEDS: Metoprolol Tartrate 25 MG Tablet PO ×2 (10:58→21:20)
[2019-01-03] MEDS: Losartan Potassium 25 MG Tablet PO (10:58)
[2019-01-03] MEDS: Furosemide 40 MG Tablet PO ×2 (10:58→17:56)
[2019-01-03] MEDS: ROFLUMILAST 500 MCG TABLET PO (10:58)
[2019-01-03] MEDS: Enoxaparin 40 MG/0.4 ML Syringe SC (10:59)
[2019-01-03] MEDS: buPROPion 100 MG Tablet PO ×2 (10:59→21:21)
[2019-01-03] MEDS: Famotidine 20 MG Tablet PO ×2 (10:59→21:21)
[2019-01-03] MEDS: Ferrous Sulfate 325 MG Tablet PO (10:59)
[2019-01-03] MEDS: Clopidogrel Bisulfate 75 MG Tablet PO (10:59)
--- NOTE | 2019-01-03 11:05 | PCM.CONS.GEN ---
Reason for Consult Date of Consultation: 01/03/19 Reason for Consultation: Acute on chronic respiratory failure History of Present Illness: The patient is a 58-year-old male, with a history as outlined below, who presented to the emergency department on January 03 with complaints of generalized malaise, myalgias and wheezing. The patient is followed longitudinally the pulmonary medicine clinic and was last seen by our nurse practitioner on December 19. The patient has very severe COPD and baseline chronic hypoxemic respiratory failure with a 4 L/min supplemental oxygen requirement at all times. He does utilize a trilogy machine with sleep. He also utilizes 10 mg of prednisone daily and is on a triple therapy inhaler regimen, including Symbicort and Spiriva. The patient is also being evaluated at the [facility] for potential lung transplantation. The patient has been smoke free now for approximately 4 years. He states that although he is being considered for lung transplantation, that he was told by the [facility] that he needed to lose weight in order to be considered a candidate. On presentation to the emergency department, the patient was noted to be afebrile, tachycardic and tachypneic. Laboratory evaluation revealed elevated white blood cell count of 14,000. Arterial blood gas obtained on BiPAP with a pressure support of 14/8 revealed a pH of 7.36 with a PCO2 of 65 and PO2 of 71. Chemistry profile revealed an elevated bicarbonate of 38. Lactate was within normal limits. Troponin was negative. Plain film chest x-ray revealed hyperinflated lung santiago with a questionable right upper lobe nodular opacity and small bilateral pleural effusions. The patient is currently receiving azithromycin, bronchodilators and IV steroids. He has been transitioning between 4 L/min of supplemental oxygen and BiPAP. He remains short of breath, tachypneic and tachycardic. Past Medical History Past Medical History (Chronic Problems): Chronic Problems (Last Reviewed 01/03/19 @ 05:42 by Rock Shen MD) Tobacco abuse (Chronic) Stage 4 very severe COPD by GOLD classification (Chronic) FEV1 20% of predicted CAD (coronary artery disease) (Chronic) Old myocardial infarction (Chronic) Type 2 diabetes mellitus (Chronic) Congestive heart failure (Chronic) MICHELLE (obstructive sleep apnea) (Chronic) Trilogy with 2 LPM oxygen bleed Presence of stent in coronary artery (Chronic ~07/2006) [facility] w/stenting to prox RCA Atherosclerotic heart disease of crow coronary artery without angina pectoris (Chronic) [facility] w/stenting to prox RCA 07/15 COPD (chronic obstructive pulmonary disease) (Chronic) Hypertension (Chronic) Hyperlipidemia (Chronic) Medical History: Medical History (Last Reviewed 01/03/19 @ 05:42 by Rock Shen MD) Tobacco abuse (Chronic) Z72.0 Stage 4 very severe COPD by GOLD classification (Chronic) J44.9 FEV1 20% of predicted CAD (coronary artery disease) (Chronic) I25.10 Old myocardial infarction (Chronic) I25.2 Type 2 diabetes mellitus (Chronic) E11.9 Congestive heart failure (Chronic) I50.9 MICHELLE (obstructive sleep apnea) (Chronic) G47.33 Trilogy with 2 LPM oxygen bleed Anxiety (Acute) F41.9 Healthcare-associated pneumonia (Resolved) J18.9 Atherosclerotic heart disease of crow coronary artery without angina pectoris (Chronic) I25.10 [facility] w/stenting to prox RCA 07/15 Chronic respiratory failure with hypoxia and hypercapnia (Acute) J96.11, J96.12 Acute respiratory failure with hypoxia and hypercapnia (Inactive) J96.01, J96.02 COPD with acute exacerbation (Acute) J44.1 COPD (chronic obstructive pulmonary disease) (Chronic) J44.9 Hypertension (Chronic) I10 Hyperlipidemia (Chronic) E78.5 Acute respiratory failure with hypoxia and hypercapnia (Inactive) J96.01, J96.02 Anxiety (Inactive) F41.9 COPD with acute exacerbation (Inactive) J44.1 Chronic respiratory failure with hypoxia and hypercapnia (Inactive) J96.11, J96.12 Coronary artery disease (Inactive) I25.10 Status post stent Healthcare-associated pneumonia (Inactive) J18.9 Allergies diazepam [From Valium] Adverse Reaction (Verified 01/03/19 02:33) Vomiting Home Medications: Ambulatory Orders Medication Instructions Recorded Aspirin [Aspirin, Baby] 81 mg PO DAILY@0800 10/04/14 Atorvastatin Calcium [Lipitor] 40 mg PO QHS 10/04/14 Clopidogrel Bisulfate [Plavix] 75 mg PO DAILY 10/04/14 Furosemide [Lasix] 40 mg PO BID 10/04/14 Multivitamins,Therapeutic 1 tab PO DAILY 10/04/14 [Multivitamin] Budesonide/Formoterol 160/4.5 2 puff INHALATION BID 02/24/15 [Symbicort 160/4.5 Mcg Inhaler (SP)] Roflumilast [Daliresp] 500 mcg PO DAILY 02/24/15 Famotidine [Pepcid] 20 mg PO BID 08/01/15 Metformin HCl [Glucophage] 500 mg PO QHS 10/08/16 bupropion HCl 100 mg tablet 100 mg PO BID 10/25/17 Albuterol Aerosols [Ventolin 2.5 mg INHALATION Q2H PRN PRN #1 11/08/17 Aerosols] box Oxygen, Home [Home Oxygen] 4 - 6 lpm NASAL CONT #1 11/08/17 albuterol sulfate HFA 90 2 puff INHALATION Q4H PRN g 11/11/17 mcg/actuation aerosol inhaler tiotropium bromide 18 mcg capsule 1 cap INHALATION DAILY 11/11/17 with inhalation device Cholecalciferol (VIT D3) [Vitamin 1,000 unit PO DAILY tab 02/13/18 D3] ipratropium bromide 0.02 % 0.5 mg INHALATION Q4H ml 05/01/18 solution for inhalation metformin 500 mg tablet 750 mg PO BREAKFAST tab 07/19/18 prednisone 10 mg tablet 10 mg PO DAILY #30 tab 09/08/18 losartan 25 mg tablet 25 mg PO DAILY 09/14/18 Budesonide Aerosol [Pulmicort 0.5 mg INHALATION BID 10/14/18 Respules] Ferrous Sulfate 325 mg PO DAILY 10/14/18 metoprolol tartrate 25 mg tablet 25 mg PO BID #60 tab 12/08/18 azelastine 137 mcg (0.1 %) nasal 1 spray INTRANASAL BID #30 ml 12/19/18 spray aerosol clotrimazole 10 mg nitish 10 mg MUCOUS MEMBRANE TID #90 tab 12/19/18 Surgical History: Surgical History (Last Reviewed 01/03/19 @ 05:42 by Rock Shen MD) History of rotator cuff surgery (Resolved) Z98.890 Presence of stent in coronary artery (Chronic) Onset Date: ~07/2006 Z95.5 [facility] w/stenting to prox RCA History of PTCA (Inactive) Z98.61 Surgical History: - - Rotator cuff surgery Psychiatric History: No pertinent psych hx Lives: Spouse/ Significant Other Smoking Status: Former smoker - *Family History Maternal Family History: Family History (Last Reviewed 01/03/19 @ 05:43 by Rock Shen MD) Mother Diabetes Father Heart disease CVA (cerebral vascular accident) Brother Diabetes Asthma History Items: Clotting Disorder - Mother with history of PE following an ankle surgery Paternal Family History: Family History (Last Reviewed 01/03/19 @ 05:43 by Rock Shen MD) Mother Diabetes Father Heart disease CVA (cerebral vascular accident) Brother Diabetes Asthma History Items: Heart Disease Review of Systems Constitutional: Reports: Malaise, Fatigue Eyes: Denies: Blurred vision, Double vision HEENT: Reports: Post Nasal Drip, Sinus Congestion Cardiovascular: Denies: Chest Pain, Palpitations Respiratory: Reports: Cough, Shortness of Breath Gastrointestinal: Denies: Abdominal Pain, Nausea, Vomiting Genitourinary: Denies: Dysuria Musculoskeletal: Denies: Joint Pain, Joint Tenderness Neurological: Denies: Numbness, Tingling, Focal weakness Psychiatric: Reports: Anxiety Hematologic/ Lymphatic: Denies: Hx of blood clot Objective: The patient's most recent lab work, culture data and imaging studies have all been personally reviewed. Respiratory viral panel is pending. Prior surface echocardiogram from 2017 revealed evidence of diastolic dysfunction with an ejection fraction of 60%. - Physical Exam General: Alert, Cooperative, No apparent distress, - HEENT: Atraumatic, PERRLA, Normocephalic Oral: No Gingival or Mucosal Lesions/ Ulcerations Neck: Supple, No Nodes, Trachea Midline Lungs: Tachypneic, - - Globally diminished air movement bilaterally with wheezes present on forced expiration. + Prolonged expiratory phase. Cardiovascular: Normal S1, Normal S2, No murmurs, Tachycardic Abdomen: Bowel Sounds Present, Soft, Non Tender, Obese Extremities: No cyanosis, No edema, Clubbing Skin: No breakdown Musculoskeletal: No Tenderness to Palpation of Joints or Extremities Lymphatic: No Cervical, Supraclavicular, or Inguinal Adenopathy Neurological: Cranial nerves II-XII grossly intact, Neuro grossly intact Psych/Mental Status: Anxious Vital Signs Temp Pulse Resp BP Pulse Ox 36.6 C 114 H 21 H 122/74 H 95 01/03/19 07:56 01/03/19 10:58 01/03/19 09:48 01/03/19 07:56 01/03/19 09:48 Oxygen Flow Rate (L/min) 4 Oxygen Delivery Method Bi-pap Weight: 242 lb 11.663 oz Body Mass Index (BMI) 33.8 Microbiology Past 72 Hours 01/03/19 03:20 Influenza Types A,B Direct FA (JEOVANNY) - Final Mucosa - Nasopharyngeal Laboratory Tests Past 24 Hrs 01/03/19 01/03/19 01/03/19 02:40 02:40 02:40 WBC 14.1 H RBC 5.14 Hgb 12.5 L Hct 45.0 MCV 87.5 MCH 24.3 L MCHC 27.8 L RDW 15.5 H RDW Differential 49.3 H Plt Count 410 MPV 8.8 Immature Gran % (Auto) 1.600 H Neut % (Auto) 75.5 H Lymph % (Auto) 12.7 L [place] % (Auto) 8.5 Eos % (Auto) 1.2 Baso % (Auto) 0.5 Absolute Neuts (auto) 10.6 H Absolute Lymphs (auto) 1.79 Total Counted Not Reportable Specimen Type Sample Site pH Bicarbonate Actual POC Total CO2 Base Excess O2 Saturation O2 % ABG pCO2 ABG pO2 Paco Test Respiration Rate O2 Delivery Device EPAP IPAP Blood Gas Notified Whom Blood Gas Notified Time Sodium 140 Potassium 3.8 Chloride 100 Carbon Dioxide 38.0 H Anion Gap 2 L BUN 16 Creatinine 1.25 Estim Creat Clear Calc 67.77 Est GFR (MDRD) Af Amer 76 Est GFR (MDRD) Non-Af 63 BUN/Creatinine Ratio 12.8 Glucose 143 H Lactic Acid 1.3 Calcium 8.6 Troponin I < 0.015 01/03/19 03:10 WBC RBC Hgb Hct MCV MCH MCHC RDW RDW Differential Plt Count MPV Immature Gran % (Auto) Neut % (Auto) Lymph % (Auto) Galax % (Auto) Eos % (Auto) Baso % (Auto) Absolute Neuts (auto) Absolute Lymphs (auto) Total Counted Specimen Type ART Sample Site L Radial pH 7.36 Bicarbonate Actual 37.1 H POC Total CO2 39 Base Excess 12 H O2 Saturation 93 L O2 % 35 ABG pCO2 65.4 H ABG pO2 71 L Paco Test POS Respiration Rate 12 O2 Delivery Device Bi / C PAP EPAP 8 IPAP 14 Blood Gas Notified Whom ED Blood Gas Notified Time 305 Sodium Potassium Chloride Carbon Dioxide Anion Gap BUN Creatinine Estim Creat Clear Calc Est GFR (MDRD) Af Amer Est GFR (MDRD) Non-Af BUN/Creatinine Ratio Glucose Lactic Acid Calcium Troponin I Clinical Impression(s) from Imaging Studies Chest X-Ray 01/03/19 02:33 IMPRESSION: 1. Spiculated right upper lobe nodule may represent a neoplasm. 2. COPD and pulmonary congestion. Electronically Signed: Debbie Hernandez MD at 3:36 EDT , Service support , Assessment/Plan All Active Problems (Last Reviewed 01/03/19 @ 05:42 by Rock Shen MD) COPD exacerbation (Acute) Sepsis (Resolved) Acute and chronic respiratory failure with hypoxia (Acute) Acute exacerbation of COPD with asthma (Acute) History of rotator cuff surgery (Resolved) Anxiety (Acute) Healthcare-associated pneumonia (Resolved) Chronic respiratory failure with hypoxia and hypercapnia (Acute) COPD with acute exacerbation (Acute) Acute kidney injury (Resolved) Nicotine dependence (Resolved) Sepsis (Resolved) RECOMMENDATIONS: 1. Obtain CTA chest 2. Wean supplemental oxygen to maintain saturations 88-92%. 3. Agree with continuing scheduled bronchodilators, IV steroids and antibiotics for now. 4. Continue empiric Tamiflu, pending results of respiratory viral panel. 5. Continue BiPAP therapy with naps and nightly. 6. Continue diuretic therapy. 7. Check BNP. IMPRESSIONS: 1. Acute on chronic combined respiratory failure/baseline stage IV COPD The patient's presenting symptoms may suggest an underlying viral etiology for his decompensation. In addition, given his tachycardia and tachypnea, along with abnormal plain film chest x-ray noting a right upper lobe nodular opacity, would suggest obtaining a CTA chest. In the interim, agree with continuing current supportive measures including scheduled bronchodilators, steroids and antibiotics. The patient does have a baseline 10 mg daily prednisone requirement. Would plan to wean supplemental oxygen to maintain saturations 88-92%. Agree with continuing empiric Tamiflu, pending results of his respiratory viral panel. 2. Obstructive sleep apnea The patient is currently prescribed the use of a trilogy machine on a nocturnal basis. BiPAP can be utilized as ordered. 3. Heart failure with preserved ejection fraction Continue twice daily Lasix regimen. Check BNP. 4. Coronary artery disease/diabetes/hyperlipidemia/hypertension Complicates care, management, recovery and prognosis. Likely okay to continue home medications as indicated. This note was generated with Fio dictation software. It may contain incorrect words, spelling, and punctuation that were not noted in checking the note before signing. Code Visit Inpatient E&M: 82299 Init Hosp L3
--- NOTE | 2019-01-03 11:17 | CON.PCM_ITS ---
Reason for Consult Date of Consultation: 01/03/19 Reason for Consultation: Acute on chronic respiratory failure History of Present Illness: The patient is a 58-year-old male, with a history as outlined below, who presented to the emergency department on January 03 with complaints of generalized malaise, myalgias and wheezing. The patient is followed longitudinally the pulmonary medicine clinic and was last seen by our nurse practitioner on December 19. The patient has very severe COPD and baseline chronic hypoxemic respiratory failure with a 4 L/min supplemental oxygen requirement at all times. He does utilize a trilogy machine with sleep. He also utilizes 10 mg of prednisone daily and is on a triple therapy inhaler regimen, including Symbicort and Spiriva. The patient is also being evaluated at the [facility] for potential lung transplantation. The patient has been smoke free now for approximately 4 years. He states that although he is being considered for lung transplantation, that he was told by the [facility] that he needed to lose weight in order to be considered a candidate. On presentation to the emergency department, the patient was noted to be afebrile, tachycardic and tachypneic. Laboratory evaluation revealed elevated white blood cell count of 14,000. Arterial blood gas obtained on BiPAP with a pressure support of 14/8 revealed a pH of 7.36 with a PCO2 of 65 and PO2 of 71. Chemistry profile revealed an elevated bicarbonate of 38. Lactate was within normal limits. Troponin was negative. Plain film chest x-ray revealed hyperinflated lung santiago with a questionable right upper lobe nodular opacity and small bilateral pleural effusions. The patient is currently receiving azithromycin, bronchodilators and IV steroids. He has been transitioning between 4 L/min of supplemental oxygen and BiPAP. He remains short of breath, tachypneic and tachycardic. Past Medical History Past Medical History (Chronic Problems): Chronic Problems (Last Reviewed 01/03/19 @ 05:42 by Rock Shen MD) Tobacco abuse (Chronic) Stage 4 very severe COPD by GOLD classification (Chronic) FEV1 20% of predicted CAD (coronary artery disease) (Chronic) Old myocardial infarction (Chronic) Type 2 diabetes mellitus (Chronic) Congestive heart failure (Chronic) MICHELLE (obstructive sleep apnea) (Chronic) Trilogy with 2 LPM oxygen bleed Presence of stent in coronary artery (Chronic ~07/2006) [facility] w/stenting to prox RCA Atherosclerotic heart disease of [place] coronary artery without angina pectoris (Chronic) [facility] w/stenting to prox RCA 07/15 COPD (chronic obstructive pulmonary disease) (Chronic) Hypertension (Chronic) Hyperlipidemia (Chronic) Medical History: Medical History (Last Reviewed 01/03/19 @ 05:42 by Rock Shen MD) Tobacco abuse (Chronic) Z72.0 Stage 4 very severe COPD by GOLD classification (Chronic) J44.9 FEV1 20% of predicted CAD (coronary artery disease) (Chronic) I25.10 Old myocardial infarction (Chronic) I25.2 Type 2 diabetes mellitus (Chronic) E11.9 Congestive heart failure (Chronic) I50.9 MICHELLE (obstructive sleep apnea) (Chronic) G47.33 Trilogy with 2 LPM oxygen bleed Anxiety (Acute) F41.9 Healthcare-associated pneumonia (Resolved) J18.9 Atherosclerotic heart disease of [place] coronary artery without angina pectoris (Chronic) I25.10 [facility] w/stenting to prox RCA 07/15 Chronic respiratory failure with hypoxia and hypercapnia (Acute) J96.11, J96.12 Acute respiratory failure with hypoxia and hypercapnia (Inactive) J96.01, J96.02 COPD with acute exacerbation (Acute) J44.1 COPD (chronic obstructive pulmonary disease) (Chronic) J44.9 Hypertension (Chronic) I10 Hyperlipidemia (Chronic) E78.5 Acute respiratory failure with hypoxia and hypercapnia (Inactive) J96.01, J96.02 Anxiety (Inactive) F41.9 COPD with acute exacerbation (Inactive) J44.1 Chronic respiratory failure with hypoxia and hypercapnia (Inactive) J96.11, J96.12 Coronary artery disease (Inactive) I25.10 Status post stent Healthcare-associated pneumonia (Inactive) J18.9 Allergies diazepam [From Valium] Adverse Reaction (Verified 01/03/19 02:33) Vomiting Home Medications: Ambulatory Orders Medication Instructions Recorded Aspirin [Aspirin, Baby] 81 mg PO DAILY@0800 10/04/14 Atorvastatin Calcium [Lipitor] 40 mg PO QHS 10/04/14 Clopidogrel Bisulfate [Plavix] 75 mg PO DAILY 10/04/14 Furosemide [Lasix] 40 mg PO BID 10/04/14 Multivitamins,Therapeutic 1 tab PO DAILY 10/04/14 [Multivitamin] Budesonide/Formoterol 160/4.5 2 puff INHALATION BID 02/24/15 [Symbicort 160/4.5 Mcg Inhaler (SP)] Roflumilast [Daliresp] 500 mcg PO DAILY 02/24/15 Famotidine [Pepcid] 20 mg PO BID 08/01/15 Metformin HCl [Glucophage] 500 mg PO QHS 10/08/16 bupropion HCl 100 mg tablet 100 mg PO BID 10/25/17 Albuterol Aerosols [Ventolin 2.5 mg INHALATION Q2H PRN PRN #1 11/08/17 Aerosols] box Oxygen, Home [Home Oxygen] 4 - 6 lpm NASAL CONT #1 11/08/17 albuterol sulfate HFA 90 2 puff INHALATION Q4H PRN g 11/11/17 mcg/actuation aerosol inhaler tiotropium bromide 18 mcg capsule 1 cap INHALATION DAILY 11/11/17 with inhalation device Cholecalciferol (VIT D3) [Vitamin 1,000 unit PO DAILY tab 02/13/18 D3] ipratropium bromide 0.02 % 0.5 mg INHALATION Q4H ml 05/01/18 solution for inhalation metformin 500 mg tablet 750 mg PO BREAKFAST tab 07/19/18 prednisone 10 mg tablet 10 mg PO DAILY #30 tab 09/08/18 losartan 25 mg tablet 25 mg PO DAILY 09/14/18 Budesonide Aerosol [Pulmicort 0.5 mg INHALATION BID 10/14/18 Respules] Ferrous Sulfate 325 mg PO DAILY 10/14/18 metoprolol tartrate 25 mg tablet 25 mg PO BID #60 tab 12/08/18 azelastine 137 mcg (0.1 %) nasal 1 spray INTRANASAL BID #30 ml 12/19/18 spray aerosol clotrimazole 10 mg nitish 10 mg MUCOUS MEMBRANE TID #90 tab 12/19/18 Surgical History: Surgical History (Last Reviewed 01/03/19 @ 05:42 by Rock Shen MD) History of rotator cuff surgery (Resolved) Z98.890 Presence of stent in coronary artery (Chronic) Onset Date: ~07/2006 Z95.5 [facility] w/stenting to prox RCA History of PTCA (Inactive) Z98.61 Surgical History: - - Rotator cuff surgery Psychiatric History: No pertinent psych hx Lives: Spouse/ Significant Other Smoking Status: Former smoker - *Family History Maternal Family History: Family History (Last Reviewed 01/03/19 @ 05:43 by Rock Shen MD) Mother Diabetes Father Heart disease CVA (cerebral vascular accident) Brother Diabetes Asthma History Items: Clotting Disorder - Mother with history of PE following an ankle surgery Paternal Family History: Family History (Last Reviewed 01/03/19 @ 05:43 by Rock Shen MD) Mother Diabetes Father Heart disease CVA (cerebral vascular accident) Brother Diabetes Asthma History Items: Heart Disease Review of Systems Constitutional: Reports: Malaise, Fatigue Eyes: Denies: Blurred vision, Double vision HEENT: Reports: Post Nasal Drip, Sinus Congestion Cardiovascular: Denies: Chest Pain, Palpitations Respiratory: Reports: Cough, Shortness of Breath Gastrointestinal: Denies: Abdominal Pain, Nausea, Vomiting Genitourinary: Denies: Dysuria Musculoskeletal: Denies: Joint Pain, Joint Tenderness Neurological: Denies: Numbness, Tingling, Focal weakness Psychiatric: Reports: Anxiety Hematologic/ Lymphatic: Denies: Hx of blood clot Objective: The patient's most recent lab work, culture data and imaging studies have all been personally reviewed. Respiratory viral panel is pending. Prior surface echocardiogram from 2017 revealed evidence of diastolic dysfunction with an ejection fraction of 60%. - Physical Exam General: Alert, Cooperative, No apparent distress, - HEENT: Atraumatic, PERRLA, Normocephalic Oral: No Gingival or Mucosal Lesions/ Ulcerations Neck: Supple, No Nodes, Trachea Midline Lungs: Tachypneic, - - Globally diminished air movement bilaterally with wheezes present on forced expiration. + Prolonged expiratory phase. Cardiovascular: Normal S1, Normal S2, No murmurs, Tachycardic Abdomen: Bowel Sounds Present, Soft, Non Tender, Obese Extremities: No cyanosis, No edema, Clubbing Skin: No breakdown Musculoskeletal: No Tenderness to Palpation of Joints or Extremities Lymphatic: No Cervical, Supraclavicular, or Inguinal Adenopathy Neurological: Cranial nerves II-XII grossly intact, Neuro grossly intact Psych/Mental Status: Anxious Vital Signs Temp Pulse Resp BP Pulse Ox 36.6 C 114 H 21 H 122/74 H 95 01/03/19 07:56 01/03/19 10:58 01/03/19 09:48 01/03/19 07:56 01/03/19 09:48 Oxygen Flow Rate (L/min) 4 Oxygen Delivery Method Bi-pap Weight: 242 lb 11.663 oz Body Mass Index (BMI) 33.8 Microbiology Past 72 Hours 01/03/19 03:20 Influenza Types A,B Direct FA (JEOVANNY) - Final Mucosa - Nasopharyngeal Laboratory Tests Past 24 Hrs 01/03/19 01/03/19 01/03/19 02:40 02:40 02:40 WBC 14.1 H RBC 5.14 Hgb 12.5 L Hct 45.0 MCV 87.5 MCH 24.3 L MCHC 27.8 L RDW 15.5 H RDW Differential 49.3 H Plt Count 410 MPV 8.8 Immature Gran % (Auto) 1.600 H Neut % (Auto) 75.5 H Lymph % (Auto) 12.7 L [place] % (Auto) 8.5 Eos % (Auto) 1.2 Baso % (Auto) 0.5 Absolute Neuts (auto) 10.6 H Absolute Lymphs (auto) 1.79 Total Counted Not Reportable Specimen Type Sample Site pH Bicarbonate Actual POC Total CO2 Base Excess O2 Saturation O2 % ABG pCO2 ABG pO2 Apco Test Respiration Rate O2 Delivery Device EPAP IPAP Blood Gas Notified Whom Blood Gas Notified Time Sodium 140 Potassium 3.8 Chloride 100 Carbon Dioxide 38.0 H Anion Gap 2 L BUN 16 Creatinine 1.25 Estim Creat Clear Calc 67.77 Est GFR (MDRD) Af Amer 76 Est GFR (MDRD) Non-Af 63 BUN/Creatinine Ratio 12.8 Glucose 143 H Lactic Acid 1.3 Calcium 8.6 Troponin I < 0.015 01/03/19 03:10 WBC RBC Hgb Hct MCV MCH MCHC RDW RDW Differential Plt Count MPV Immature Gran % (Auto) Neut % (Auto) Lymph % (Auto) [place] % (Auto) Eos % (Auto) Baso % (Auto) Absolute Neuts (auto) Absolute Lymphs (auto) Total Counted Specimen Type ART Sample Site L Radial pH 7.36 Bicarbonate Actual 37.1 H POC Total CO2 39 Base Excess 12 H O2 Saturation 93 L O2 % 35 ABG pCO2 65.4 H ABG pO2 71 L Paco Test POS Respiration Rate 12 O2 Delivery Device Bi / C PAP EPAP 8 IPAP 14 Blood Gas Notified Whom ED Blood Gas Notified Time 305 Sodium Potassium Chloride Carbon Dioxide Anion Gap BUN Creatinine Estim Creat Clear Calc Est GFR (MDRD) Af Amer Est GFR (MDRD) Non-Af BUN/Creatinine Ratio Glucose Lactic Acid Calcium Troponin I Clinical Impression(s) from Imaging Studies Chest X-Ray 01/03/19 02:33 IMPRESSION: 1. Spiculated right upper lobe nodule may represent a neoplasm. 2. COPD and pulmonary congestion. Electronically Signed: Debbie Hernandez MD at 3:36 EDT , Service support , Assessment/Plan All Active Problems (Last Reviewed 01/03/19 @ 05:42 by Rock Shen MD) COPD exacerbation (Acute) Sepsis (Resolved) Acute and chronic respiratory failure with hypoxia (Acute) Acute exacerbation of COPD with asthma (Acute) History of rotator cuff surgery (Resolved) Anxiety (Acute) Healthcare-associated pneumonia (Resolved) Chronic respiratory failure with hypoxia and hypercapnia (Acute) COPD with acute exacerbation (Acute) Acute kidney injury (Resolved) Nicotine dependence (Resolved) Sepsis (Resolved) RECOMMENDATIONS: 1. Obtain CTA chest 2. Wean supplemental oxygen to maintain saturations 88-92%. 3. Agree with continuing scheduled bronchodilators, IV steroids and antibiotics for now. 4. Continue empiric Tamiflu, pending results of respiratory viral panel. 5. Continue BiPAP therapy with naps and nightly. 6. Continue diuretic therapy. 7. Check BNP. IMPRESSIONS: 1. Acute on chronic combined respiratory failure/baseline stage IV COPD The patient's presenting symptoms may suggest an underlying viral etiology for his decompensation. In addition, given his tachycardia and tachypnea, along with abnormal plain film chest x-ray noting a right upper lobe nodular opacity, would suggest obtaining a CTA chest. In the interim, agree with continuing current supportive measures including scheduled bronchodilators, steroids and antibiotics. The patient does have a baseline 10 mg daily prednisone requirement. Would plan to wean supplemental oxygen to maintain saturations 88- 92%. Agree with continuing empiric Tamiflu, pending results of his respiratory viral panel. 2. Obstructive sleep apnea The patient is currently prescribed the use of a trilogy machine on a nocturnal basis. BiPAP can be utilized as ordered. 3. Heart failure with preserved ejection fraction Continue twice daily Lasix regimen. Check BNP. 4. Coronary artery disease/diabetes/hyperlipidemia/hypertension Complicates care, management, recovery and prognosis. Likely okay to continue home medications as indicated. This note was generated with [employer] dictation software. It may contain incorrect words, spelling, and punctuation that were not noted in checking the note before signing. Code Visit Inpatient E&M: 73358 Init Hosp L3
--- NOTE | 2019-01-03 11:28 | CT_ITS ---
STUDY: CTA CHEST REASON FOR EXAM: Male, 58 years old. Shortness of breath and hypoxia. Right upper lobe nodule. RADIATION DOSAGE (If Supplied By Facility): CTDIvol = ( 11.3 ) mGy, DLP = ( 580.34 ) mGycm TECHNIQUE: The examination was performed with the intravenous administration of 100 IV Isovue 370. Post-processing of the angiographic images was performed, with multiplanar reformation and 3D reconstruction. Individualized dose optimization techniques were used for this CT. COMPARISON: Comparison is made with prior examination dated February 10, 2018. FINDINGS: Normal enhancement of the main pulmonary artery and right and left pulmonary arteries. Normal enhancement of the bilateral peripheral pulmonary arteries. There is no demonstrated pulmonary embolism. Normal thoracic aorta and visualized great vessels. There is no demonstrated aortic dissection. Normal heart and pericardium. Normal mediastinum. Normal hilar regions. Normal visualized trachea and bronchi. Hyperinflation. Diffuse emphysematous changes worse in the upper lobes with bullous formation along the lateral aspect of the right upper lobe. There is also evidence of a linear scarring in the lateral aspect of the right upper lobe. This most likely corresponds to the density seen on frontal radiograph. Mild increased linear markings with focal area of bronchiectasis in the right middle lobe. Bullous changes in the lower lobes with evidence of scarring and bronchiectasis in the lower lobes. Normal pleura. Normal chest wall structures. Normal osseous structures. Stable appearance of the left lateral upper abdominal wall fat-containing hernia. CT/CTA Chest W/WO Contrast IMPRESSION: Hyperinflation and emphysematous changes worse in the upper lobes. Scarring at the lung bases with her bronchiectasis and bleb formation. Blood formation in the upper lobes worse on the right side with linear scarring in the right upper lobe. Electronically Signed: Sanchez Blood, at 13:22 EDT , Service support ,
[2019-01-03] MEDS: 0.9% NaCl Peripheral Flush Adult/Peds IV ×2 (14:33→21:22)
--- NOTE | 2019-01-03 14:42 | PCM.PROGNOTE ---
Subjective: He is not aware of a mass or cancer. He is following with [facility] lung transplant team and was told that he needs to lose 30 lbs before he is a candidate, and he is angry that his PCP wont give him prescription medications to help him lose weight. He used NIV all night and this AM and remains severely SOB at rest - has trilogy at home. He has a fever this AM. No chills. He states he wants somebody to shoot him to put him out of his misery because he cannot breathe. He has a nonproductive cough. He does have difficulty laying flat but was able to tolerate CTA chest. This did not show a spiculated lesion. - Physical Exam General: Alert, Oriented x3, Cooperative HEENT: Atraumatic, PERRLA, EOMI, Normocephalic Neck: Supple, No JVD, Negative Carotid Bruits Lungs: Diminished, Rales, Wheezes Cardiovascular: Regular rate, No murmurs Abdomen: Bowel Sounds Present, Soft, Non Tender Extremities: No edema, Capillary Refill Less than 3 Seconds Skin: No rashes, No breakdown Musculoskeletal: No Tenderness to Palpation of Joints or Extremities Neurological: Cranial nerves II-XII grossly intact Psych/Mental Status: Normal Affect, Appropriate, Alert and oriented to time, place, person, mood and affect Vital Signs Temp Pulse Resp BP Pulse Ox 97.9 F 98 24 H 135/87 H 95 01/03/19 14:00 01/03/19 14:00 01/03/19 14:00 01/03/19 14:00 01/03/19 14:00 Oxygen Flow Rate (L/min) 4 Oxygen Delivery Method Bi-pap Weight: 242 lb 11.663 oz Body Mass Index (BMI) 33.8 Intake and Output for Last 24 Hours 01/01/19 01/02/19 01/03/19 23:59 23:59 23:59 Intake Total 400 / 400 Output Total 200 / 200 Balance 200 / 200 Microbiology Past 72 Hours 01/03/19 09:33 Respiratory Panel (PCR) - Final Mucosa - Nasopharyngeal Influenza A (Subtype H1) 01/03/19 03:20 Influenza Types A,B Direct FA (JEOVANNY) - Final Mucosa - Nasopharyngeal Laboratory Tests Past 24 Hrs 01/03/19 01/03/19 01/03/19 02:40 02:40 02:40 WBC 14.1 H RBC 5.14 Hgb 12.5 L Hct 45.0 MCV 87.5 MCH 24.3 L MCHC 27.8 L RDW 15.5 H RDW Differential 49.3 H Plt Count 410 MPV 8.8 Immature Gran % (Auto) 1.600 H Neut % (Auto) 75.5 H Lymph % (Auto) 12.7 L [place] % (Auto) 8.5 Eos % (Auto) 1.2 Baso % (Auto) 0.5 Absolute Neuts (auto) 10.6 H Absolute Lymphs (auto) 1.79 Total Counted Not Reportable Specimen Type Sample Site pH Bicarbonate Actual POC Total CO2 Base Excess O2 Saturation O2 % ABG pCO2 ABG pO2 Paco Test Respiration Rate O2 Delivery Device EPAP IPAP Blood Gas Notified Whom Blood Gas Notified Time Sodium 140 Potassium 3.8 Chloride 100 Carbon Dioxide 38.0 H Anion Gap 2 L BUN 16 Creatinine 1.25 Estim Creat Clear Calc 67.77 Est GFR (MDRD) Af Amer 76 Est GFR (MDRD) Non-Af 63 BUN/Creatinine Ratio 12.8 Glucose 143 H Lactic Acid 1.3 Calcium 8.6 Troponin I < 0.015 B-Natriuretic Peptide 01/03/19 01/03/19 02:40 03:10 WBC RBC Hgb Hct MCV MCH MCHC RDW RDW Differential Plt Count MPV Immature Gran % (Auto) Neut % (Auto) Lymph % (Auto) [place] % (Auto) Eos % (Auto) Baso % (Auto) Absolute Neuts (auto) Absolute Lymphs (auto) Total Counted Specimen Type ART Sample Site L Radial pH 7.36 Bicarbonate Actual 37.1 H POC Total CO2 39 Base Excess 12 H O2 Saturation 93 L O2 % 35 ABG pCO2 65.4 H ABG pO2 71 L Paco Test POS Respiration Rate 12 O2 Delivery Device Bi / C PAP EPAP 8 IPAP 14 Blood Gas Notified Whom ED Blood Gas Notified Time 305 Sodium Potassium Chloride Carbon Dioxide Anion Gap BUN Creatinine Estim Creat Clear Calc Est GFR (MDRD) Af Amer Est GFR (MDRD) Non-Af BUN/Creatinine Ratio Glucose Lactic Acid Calcium Troponin I B-Natriuretic Peptide Pending Medical Necessity - Tobacco Use Smoking Status: Former smoker Assessment/Plan All Active Problems (Last Reviewed 01/03/19 @ 05:42 by Rock Shen MD) COPD exacerbation (Acute) Sepsis (Resolved) Acute and chronic respiratory failure with hypoxia (Acute) Acute exacerbation of COPD with asthma (Acute) History of rotator cuff surgery (Resolved) Anxiety (Acute) Healthcare-associated pneumonia (Resolved) Chronic respiratory failure with hypoxia and hypercapnia (Acute) COPD with acute exacerbation (Acute) Acute kidney injury (Resolved) Nicotine dependence (Resolved) Sepsis (Resolved) 1. Acute on chronic hypoxic respiratory failure and acute sepsis 2/2 influenza syndrome, acute bronchitis, COPD exacerbation, likely acute diastolic CHF exacerbation - continue abx, tamiflu, steroids, aerosols, lasix, Bipap. Flu A +. + WBC and fever, No infiltrate on CXR or CTA. CTA does not show spiculated mass - likely overread. Pulmonary medicine consulted. CO2 is high, Gap is 2. Trop neg. BNP pending. 2. MICHELLE - trilogy at home 3. CAD, prior stents. on asa/plavix/statin/losartan/lopressor 4. iron def anemia - stable 5. T2DM - SSI 6. HTN - stable 7. Anxiety/Depression - home meds. DVT ppx: lovenox DC planning: likely long slow recovery This patient was seen by Rl Mota PA-C under the supervision of Doctor Arce.
[2019-01-03 14:46] LABS: BNP,B-Type NATRIURETIC PEPTIDE 22.3 pg/mL (0-100)
[2019-01-03] MEDS: Insulin Lispro 100 UNIT/ML INSULN.PEN SQ ×2 (16:25→23:34)
[2019-01-03 16:36] LABS: Bedside Glucose 185 mg/dL (70-110)
[2019-01-03] MEDS: Atorvastatin Calcium 40 MG Tablet PO (21:20)
--- NOTE | 2019-01-03 22:01 | NURSING ---
Patient used urinal, became SOB with exertion, tachypnea up to 29, tachycardiac up to 110, sats dropped to 87%, remained on 4L NC, patient refused bipap, was able to recover within ten minutes, will continue to monitor and encourage bipap.
[2019-01-03 23:40] LABS: Bedside Glucose 194 mg/dL (70-110)
[2019-01-04] VITALS (32 sets, daily range): BP systolic 97–123; BP diastolic 57–85; PULSE 84–107; RESP 12–32; TEMP 36.6–36.9; O2SAT 92–98
[2019-01-04] MEDS: Ipratropium/Albuterol Sulfate 3 ML AMPUL.NEB INHALATION ×6 (03:13→23:22)
[2019-01-04] MEDS: 0.9% NaCl Peripheral Flush Adult/Peds IV ×2 (05:14→14:47)
[2019-01-04] MEDS: Insulin Lispro 100 UNIT/ML INSULN.PEN SQ ×2 (05:15→10:52)
[2019-01-04 05:25] LABS: Bedside Glucose 170 mg/dL (70-110)
[2019-01-04 06:24] LABS: Absolute Lymphocyte Count 0.71 X10^3/ul (0.83-4.51); Absolute Neutrophil Count 12.7 X10^3/uL (2.0-7.7); Basophil# 0.01 X10^3/uL; Basophil% 0.1 % (0-1); Hematocrit 41.5 % (40-54); Hemoglobin 11.7 g/dl (13.0-16.5); Lymphocyte # 0.71 X10^3/ul (4.0); Lymphocyte % 4.8 % (19-41); Mean Corp Hgb Conc 28.2 g/gl (32-36); Mean Corpuscular Hgb 24.2 pg (27.0-32.0); Mean Corpuscular Volume 85.9 fL (80-94); Mean Platelet Vol. 9.3 fl (6.2-12.0); Monocyte# 1.37 X10^3/uL; Monocyte% 9.2 % (0-10); Neutrophil # 12.68 X10^3/uL (2.7-7.7); Neutrophil % 85.5 % (47-70); Platelet Count 364 K/mm3 (150-450); RBC Distribution Width CV 15.4 % (11.6-14.6); RBC Distribution Width SD 47.4 fl (35.1-43.9); Red Blood Count 4.83 M/mm3 (4.6-6.2); White Blood Count 14.8 K/mm3 (4.4-11.0)
[2019-01-04 06:35] LABS: Anion Gap 5 (5-15); BUN 22 mg/dL (7-18); BUN/Creat Ratio 20.4 RATIO (10-20); Calcium,Total 8.9 mg/dL (8.5-10.1); Chloride 100 mmol/L (98-107); Creatinine, Serum 1.08 mg/dL (0.70-1.30); EST Glomerular Filtration Rate 74 mL/min (>60); Est Glom Filt Rate - Afr Amer 90 mL/min (>60); Estimated Creatinine Clearance 78.44 ml/min; Glucose 159 mg/dL (74-106); Potassium 4.4 mmol/L (3.5-5.1); Sodium Level 139 mmol/L (136-145)
[2019-01-04 06:40] LABS: POSITIVE COUNT NO; POSITIVE DIFFERENTIAL NO; POSITIVE MORPHOLOGY NO
--- NOTE | 2019-01-04 07:08 | PCM.PROGNOTE ---
Subjective: The patient was seen and examined at the bedside this morning. Events from the last 24 hours have been reviewed. The patient is currently afebrile, hemodynamically stable and maintaining appropriate oxygen saturations on 4 L/min via nasal cannula. The patient does continue to endorse the presence of shortness of breath, out of proportion to what is baseline for him. Objective: The patient's most recent lab work, culture data and imaging studies have all been personally reviewed. Blood cultures are currently pending. Respiratory viral panel was positive for influenza A. CTA chest revealed no evidence for pulmonary embolism. There was evidence of diffuse bilateral emphysematous changes along with linear scarring in the right upper lobe, likely corresponding to the density noted on the patient's plain film chest x-ray. - Physical Exam General: Alert, Cooperative, No apparent distress HEENT: Atraumatic, PERRLA, Normocephalic Oral: No Gingival or Mucosal Lesions/ Ulcerations Neck: Supple, No Nodes, Trachea Midline Lungs: Diminished, Short of Breath, Tachypneic, Wheezes Cardiovascular: Regular rate, Regular Rhythm, Normal S1, Normal S2, No murmurs Abdomen: Bowel Sounds Present, Soft, Non Tender, Non-Distended Extremities: No cyanosis, No edema, Clubbing Skin: No breakdown Musculoskeletal: No Tenderness to Palpation of Joints or Extremities Lymphatic: No Cervical, Supraclavicular, or Inguinal Adenopathy Neurological: Neuro grossly intact Psych/Mental Status: Normal Affect, Appropriate Vital Signs Temp Pulse Resp BP Pulse Ox 36.7 C 96 20 H 103/85 H 95 01/04/19 06:00 01/04/19 06:00 01/04/19 06:00 01/04/19 06:00 01/04/19 06:00 Oxygen Flow Rate (L/min) 4 Oxygen Delivery Method Bi-pap Weight: 242 lb 11.663 oz Body Mass Index (BMI) 33.8 Intake and Output for Last 24 Hours 01/02/19 01/03/19 01/04/19 23:59 23:59 23:59 Intake Total 1189 / 1189 Output Total 1900 / 1900 450 / 450 Balance -711 / -711 -450 / -450 Microbiology Past 72 Hours 01/03/19 09:33 Respiratory Panel (PCR) - Final Mucosa - Nasopharyngeal Influenza A (Subtype H1) 01/03/19 03:20 Influenza Types A,B Direct FA (JEOVANNY) - Final Mucosa - Nasopharyngeal Laboratory Tests Past 24 Hrs 01/03/19 01/04/19 01/04/19 02:40 06:08 06:08 WBC 14.8 H RBC 4.83 Hgb 11.7 L Hct 41.5 MCV 85.9 MCH 24.2 L MCHC 28.2 L RDW 15.4 H RDW Differential 47.4 H Plt Count 364 MPV 9.3 Immature Gran % (Auto) 0.400 Neut % (Auto) 85.5 H Lymph % (Auto) 4.8 L [place] % (Auto) 9.2 Eos % (Auto) 0.0 Baso % (Auto) 0.1 Absolute Neuts (auto) 12.7 H Absolute Lymphs (auto) 0.71 L Total Counted Not Reportable Sodium 139 Potassium 4.4 Chloride 100 Carbon Dioxide 34.0 H Anion Gap 5 BUN 22 H Creatinine 1.08 Estim Creat Clear Calc 78.44 Est GFR (MDRD) Af Amer 90 Est GFR (MDRD) Non-Af 74 BUN/Creatinine Ratio 20.4 H Glucose 159 H Calcium 8.9 B-Natriuretic Peptide 22.3 POC Glucose 01/04/19 01/03/19 01/03/19 05:14 23:32 16:22 POC Glucose 170 H 194 H 185 H Clinical Impression(s) from Imaging Studies Chest X-Ray 01/03/19 02:33 IMPRESSION: 1. Spiculated right upper lobe nodule may represent a neoplasm. 2. COPD and pulmonary congestion. Electronically Signed: Debbie Hernandez MD at 3:36 EDT , Service support , Chest CTA 01/03/19 11:28 IMPRESSION: Hyperinflation and emphysematous changes worse in the upper lobes. Scarring at the lung bases with her bronchiectasis and bleb formation. Blood formation in the upper lobes worse on the right side with linear scarring in the right upper lobe. Electronically Signed: Sanchez Blood, at 13:22 EDT , Service support , Medical Necessity - Tobacco Use Smoking Status: Former smoker Assessment/Plan All Active Problems (Last Reviewed 01/03/19 @ 05:42 by Rock Shen MD) COPD exacerbation (Acute) Sepsis (Resolved) Acute and chronic respiratory failure with hypoxia (Acute) Acute exacerbation of COPD with asthma (Acute) History of rotator cuff surgery (Resolved) Anxiety (Acute) Healthcare-associated pneumonia (Resolved) Chronic respiratory failure with hypoxia and hypercapnia (Acute) COPD with acute exacerbation (Acute) Acute kidney injury (Resolved) Nicotine dependence (Resolved) Sepsis (Resolved) RECOMMENDATIONS: 1. Wean supplemental oxygen to maintain saturations 88-92%. 2. Continue scheduled bronchodilators and IV steroids for now. 3. Antibiotics can likely be discontinued from my perspective. Recommend continuing Tamiflu as ordered. 4. Continue BiPAP therapy with naps and nightly. 5. Continue diuretic therapy. IMPRESSIONS: 1. Acute on chronic combined respiratory failure/baseline stage IV COPD with exacerbation secondary to influenza A infection The patient presented to the hospital and was noted to be positive for influenza A. He is currently on appropriate therapy with Tamiflu, scheduled bronchodilators and IV steroids. His supplemental oxygen will be weaned accordingly. Given the lack of anything to suggest a bacterial pneumonia, I am okay with discontinuing his antibiotics. The right upper lobe nodular density noted on plain film chest x-ray appears to be scar tissue on follow-up CT chest. The patient does have a baseline 10 mg daily prednisone requirement. Would plan to wean supplemental oxygen to maintain saturations 88-92%. 2. Obstructive sleep apnea The patient is currently prescribed the use of a trilogy machine on a nocturnal basis. BiPAP can be utilized as ordered with naps and nightly for now. 3. Heart failure with preserved ejection fraction Continue diuretic regimen as ordered. 4. Coronary artery disease/diabetes/hyperlipidemia/hypertension Complicates care, management, recovery and prognosis. Likely okay to continue home medications as indicated. This note was generated with [employer] dictation software. It may contain incorrect words, spelling, and punctuation that were not noted in checking the note before signing. Code Visit Inpatient E&M: 77537 Subs Hosp L2
--- NOTE | 2019-01-04 07:13 | PN_ITS ---
Subjective: The patient was seen and examined at the bedside this morning. Events from the last 24 hours have been reviewed. The patient is currently afebrile, hemodynamically stable and maintaining appropriate oxygen saturations on 4 L/min via nasal cannula. The patient does continue to endorse the presence of shortness of breath, out of proportion to what is baseline for him. Objective: The patient's most recent lab work, culture data and imaging studies have all been personally reviewed. Blood cultures are currently pending. Respiratory viral panel was positive for influenza A. CTA chest revealed no evidence for pulmonary embolism. There was evidence of diffuse bilateral emphysematous changes along with linear scarring in the right upper lobe, likely corresponding to the density noted on the patient's plain film chest x-ray. - Physical Exam General: Alert, Cooperative, No apparent distress HEENT: Atraumatic, PERRLA, Normocephalic Oral: No Gingival or Mucosal Lesions/ Ulcerations Neck: Supple, No Nodes, Trachea Midline Lungs: Diminished, Short of Breath, Tachypneic, Wheezes Cardiovascular: Regular rate, Regular Rhythm, Normal S1, Normal S2, No murmurs Abdomen: Bowel Sounds Present, Soft, Non Tender, Non-Distended Extremities: No cyanosis, No edema, Clubbing Skin: No breakdown Musculoskeletal: No Tenderness to Palpation of Joints or Extremities Lymphatic: No Cervical, Supraclavicular, or Inguinal Adenopathy Neurological: Neuro grossly intact Psych/Mental Status: Normal Affect, Appropriate Vital Signs Temp Pulse Resp BP Pulse Ox 36.7 C 96 20 H 103/85 H 95 01/04/19 06:00 01/04/19 06:00 01/04/19 06:00 01/04/19 06:00 01/04/19 06:00 Oxygen Flow Rate (L/min) 4 Oxygen Delivery Method Bi-pap Weight: 242 lb 11.663 oz Body Mass Index (BMI) 33.8 Intake and Output for Last 24 Hours 01/02/19 01/03/19 01/04/19 23:59 23:59 23:59 Intake Total 1189 / 1189 Output Total 1900 / 1900 450 / 450 Balance -711 / -711 -450 / -450 Microbiology Past 72 Hours 01/03/19 09:33 Respiratory Panel (PCR) - Final Mucosa - Nasopharyngeal Influenza A (Subtype H1) 01/03/19 03:20 Influenza Types A,B Direct FA (JEOVANNY) - Final Mucosa - Nasopharyngeal Laboratory Tests Past 24 Hrs 01/03/19 01/04/19 01/04/19 02:40 06:08 06:08 WBC 14.8 H RBC 4.83 Hgb 11.7 L Hct 41.5 MCV 85.9 MCH 24.2 L MCHC 28.2 L RDW 15.4 H RDW Differential 47.4 H Plt Count 364 MPV 9.3 Immature Gran % (Auto) 0.400 Neut % (Auto) 85.5 H Lymph % (Auto) 4.8 L [place] % (Auto) 9.2 Eos % (Auto) 0.0 Baso % (Auto) 0.1 Absolute Neuts (auto) 12.7 H Absolute Lymphs (auto) 0.71 L Total Counted Not Reportable Sodium 139 Potassium 4.4 Chloride 100 Carbon Dioxide 34.0 H Anion Gap 5 BUN 22 H Creatinine 1.08 Estim Creat Clear Calc 78.44 Est GFR (MDRD) Af Amer 90 Est GFR (MDRD) Non-Af 74 BUN/Creatinine Ratio 20.4 H Glucose 159 H Calcium 8.9 B-Natriuretic Peptide 22.3 POC Glucose 01/04/19 01/03/19 01/03/19 05:14 23:32 16:22 POC Glucose 170 H 194 H 185 H Clinical Impression(s) from Imaging Studies Chest X-Ray 01/03/19 02:33 IMPRESSION: 1. Spiculated right upper lobe nodule may represent a neoplasm. 2. COPD and pulmonary congestion. Electronically Signed: Debbie Hernandez MD at 3:36 EDT , Service support , Chest CTA 01/03/19 11:28 IMPRESSION: Hyperinflation and emphysematous changes worse in the upper lobes. Scarring at the lung bases with her bronchiectasis and bleb formation. Blood formation in the upper lobes worse on the right side with linear scarring in the right upper lobe. Electronically Signed: Sanchez Blood, at 13:22 EDT , Service support , Medical Necessity - Tobacco Use Smoking Status: Former smoker Assessment/Plan All Active Problems (Last Reviewed 01/03/19 @ 05:42 by Rock Shen MD) COPD exacerbation (Acute) Sepsis (Resolved) Acute and chronic respiratory failure with hypoxia (Acute) Acute exacerbation of COPD with asthma (Acute) History of rotator cuff surgery (Resolved) Anxiety (Acute) Healthcare-associated pneumonia (Resolved) Chronic respiratory failure with hypoxia and hypercapnia (Acute) COPD with acute exacerbation (Acute) Acute kidney injury (Resolved) Nicotine dependence (Resolved) Sepsis (Resolved) RECOMMENDATIONS: 1. Wean supplemental oxygen to maintain saturations 88-92%. 2. Continue scheduled bronchodilators and IV steroids for now. 3. Antibiotics can likely be discontinued from my perspective. Recommend continuing Tamiflu as ordered. 4. Continue BiPAP therapy with naps and nightly. 5. Continue diuretic therapy. IMPRESSIONS: 1. Acute on chronic combined respiratory failure/baseline stage IV COPD with exacerbation secondary to influenza A infection The patient presented to the hospital and was noted to be positive for influenza A. He is currently on appropriate therapy with Tamiflu, scheduled bronchodilators and IV steroids. His supplemental oxygen will be weaned accordingly. Given the lack of anything to suggest a bacterial pneumonia, I am okay with discontinuing his antibiotics. The right upper lobe nodular density noted on plain film chest x-ray appears to be scar tissue on follow-up CT chest. The patient does have a baseline 10 mg daily prednisone requirement. Would plan to wean supplemental oxygen to maintain saturations 88-92%. 2. Obstructive sleep apnea The patient is currently prescribed the use of a trilogy machine on a nocturnal basis. BiPAP can be utilized as ordered with naps and nightly for now. 3. Heart failure with preserved ejection fraction Continue diuretic regimen as ordered. 4. Coronary artery disease/diabetes/hyperlipidemia/hypertension Complicates care, management, recovery and prognosis. Likely okay to continue home medications as indicated. This note was generated with [employer] dictation software. It may contain incorrect words, spelling, and punctuation that were not noted in checking the note before signing. Code Visit Inpatient E&M: 72637 Subs Hosp L2
[2019-01-04] MEDS: Aspirin 81 MG TAB.CHEW PO (08:24)
[2019-01-04] MEDS: ROFLUMILAST 500 MCG TABLET PO (08:25)
[2019-01-04] MEDS: Multivitamins,Therapeutic Tablet 1 TABLET PO (08:25)
[2019-01-04] MEDS: Losartan Potassium 25 MG Tablet PO (08:25)
[2019-01-04] MEDS: buPROPion 100 MG Tablet PO ×2 (08:26→21:54)
[2019-01-04] MEDS: Famotidine 20 MG Tablet PO ×2 (08:26→21:54)
[2019-01-04] MEDS: Furosemide 40 MG Tablet PO ×2 (08:26→17:22)
[2019-01-04] MEDS: Metoprolol Tartrate 25 MG Tablet PO ×2 (08:26→21:54)
[2019-01-04] MEDS: Clopidogrel Bisulfate 75 MG Tablet PO (08:26)
[2019-01-04] MEDS: Oseltamivir Phosphate 75 MG Capsule PO ×2 (08:26→21:54)
[2019-01-04] MEDS: Azelastine HCl NASAL.SRY 1 SPRAY NASAL ×2 (08:27→21:55)
[2019-01-04] MEDS: Enoxaparin 40 MG/0.4 ML Syringe SC (08:27)
[2019-01-04] MEDS: Ferrous Sulfate 325 MG Tablet PO (10:53)
[2019-01-04 11:00] LABS: Bedside Glucose 205 mg/dL (70-110)
--- NOTE | 2019-01-04 12:31 | PCM.PROGNOTE ---
Subjective: Patient seen and examined. Continues to complain of significant shortness of breath. Reports he tolerated BiPAP overnight. Denies fever, chills. - Physical Exam General: Alert, Oriented x3, Cooperative HEENT: Atraumatic, PERRLA, EOMI, Normocephalic Neck: Supple, No JVD, Negative Carotid Bruits Lungs: Diminished, Wheezes Cardiovascular: Regular rate, Regular Rhythm, Normal S1, Normal S2, No murmurs Abdomen: Bowel Sounds Present, Soft, Non Tender, Non-Distended Extremities: No clubbing, No cyanosis, No edema, Capillary Refill Less than 3 Seconds Skin: No rashes, No breakdown Musculoskeletal: No Tenderness to Palpation of Joints or Extremities Neurological: Cranial nerves II-XII grossly intact, Neuro grossly intact Psych/Mental Status: Normal Affect, Appropriate Vital Signs Temp Pulse Resp BP Pulse Ox 98 F 98 27 H 114/70 96 01/04/19 11:26 01/04/19 11:28 01/04/19 11:26 01/04/19 11:26 01/04/19 11:26 Oxygen Flow Rate (L/min) 4 Oxygen Delivery Method Nasal Cannula Weight: 242 lb 11.663 oz Body Mass Index (BMI) 33.8 Intake and Output for Last 24 Hours 01/02/19 01/03/19 01/04/19 23:59 23:59 23:59 Intake Total 1189 / 1189 400 / 400 Output Total 1900 / 1900 950 / 950 Balance -711 / -711 -550 / -550 Microbiology Past 72 Hours 01/03/19 09:33 Respiratory Panel (PCR) - Final Mucosa - Nasopharyngeal Influenza A (Subtype H1) 01/03/19 03:20 Influenza Types A,B Direct FA (JEOVANNY) - Final Mucosa - Nasopharyngeal Laboratory Tests Past 24 Hrs 01/03/19 01/04/19 01/04/19 02:40 06:08 06:08 WBC 14.8 H RBC 4.83 Hgb 11.7 L Hct 41.5 MCV 85.9 MCH 24.2 L MCHC 28.2 L RDW 15.4 H RDW Differential 47.4 H Plt Count 364 MPV 9.3 Immature Gran % (Auto) 0.400 Neut % (Auto) 85.5 H Lymph % (Auto) 4.[address] [place] % (Auto) 9.2 Eos % (Auto) 0.0 Baso % (Auto) 0.1 Absolute Neuts (auto) 12.7 H Absolute Lymphs (auto) 0.71 L Total Counted Not Reportable Sodium 139 Potassium 4.4 Chloride 100 Carbon Dioxide 34.0 H Anion Gap 5 BUN 22 H Creatinine 1.08 Estim Creat Clear Calc 78.44 Est GFR (MDRD) Af Amer 90 Est GFR (MDRD) Non-Af 74 BUN/Creatinine Ratio 20.4 H Glucose 159 H Calcium 8.9 B-Natriuretic Peptide 22.3 POC Glucose 01/04/19 01/04/19 01/03/19 10:49 05:14 23:32 POC Glucose 205 H 170 H 194 H 01/03/19 16:22 POC Glucose 185 H Medical Necessity - Tobacco Use Smoking Status: Former smoker Assessment/Plan All Active Problems (Last Reviewed 01/03/19 @ 05:42 by Rock Shen MD) COPD exacerbation (Acute) Sepsis (Resolved) Acute and chronic respiratory failure with hypoxia (Acute) Acute exacerbation of COPD with asthma (Acute) History of rotator cuff surgery (Resolved) Anxiety (Acute) Healthcare-associated pneumonia (Resolved) Chronic respiratory failure with hypoxia and hypercapnia (Acute) COPD with acute exacerbation (Acute) Acute kidney injury (Resolved) Nicotine dependence (Resolved) Sepsis (Resolved) 1. Acute on chronic hypoxic respiratory failure secondary to acute exacerbation of COPD as a result of acute influenza A-continue Tamiflu, IV Solu-Medrol and albuterol/DuoNeb aerosols. Pulmonary following. Discontinue antibiotics. CT of chest shows hyperinflation and emphysematous changes worse in the upper lobes. Scarring at the lung bases with bronchiectasis and bleb formation. Right upper lobe scarring. Continue supplement oxygen to maintain O2 at 88-92%. BiPAP nightly and with naps. 2. Obstructive sleep apnea-continue BiPAP as noted above. Patient has trilogy at home. 3. Chronic diastolic CHF-no acute exacerbation. Continue home Lasix regimen. 4. CAD with history of stents-continue aspirin, Plavix, statin, beta-misti. 5. Type 2 diabetes [id number]-[id number] AC at bedtime with sliding scale insulin. 6. Hypertension-stable, continue home losartan, Lopressor regimen. 7. Hyperlipidemia-continue statin. 8. Obesity-encouraged diet lifestyle modifications. Nutrition consult. 9. Iron deficiency anemia-continue iron supplementation. DVT prophylaxis-Lovenox subcu This patient was seen by TEVIN Le under the supervision of Dr. Arce.
[2019-01-04 16:46] LABS: Bedside Glucose 150 mg/dL (70-110)
[2019-01-04] MEDS: Insulin Lispro 100 UNIT/ML INSULN.PEN SC ×2 (17:23→21:55)
[2019-01-04] MEDS: Atorvastatin Calcium 40 MG Tablet PO (21:54)
[2019-01-04 22:56] LABS: Bedside Glucose 226 mg/dL (70-110)
[2019-01-05] VITALS (20 sets, daily range): BP systolic 105–119; BP diastolic 64–89; PULSE 75–99; RESP 12–26; TEMP 36.3–36.9; O2SAT 96–98
[2019-01-05 05:43] LABS: Anion Gap 5 (5-15); BUN 25 mg/dL (7-18); BUN/Creat Ratio 24.3 RATIO (10-20); Calcium,Total 8.7 mg/dL (8.5-10.1); Chloride 100 mmol/L (98-107); Creatinine, Serum 1.03 mg/dL (0.70-1.30); EST Glomerular Filtration Rate 79 mL/min (>60); Est Glom Filt Rate - Afr Amer 95 mL/min (>60); Estimated Creatinine Clearance 82.25 ml/min; Glucose 150 mg/dL (74-106); Potassium 4.4 mmol/L (3.5-5.1); Sodium Level 141 mmol/L (136-145)
[2019-01-05] MEDS: Ipratropium/Albuterol Sulfate 3 ML AMPUL.NEB INHALATION ×5 (05:50→23:00)
[2019-01-05] MEDS: 0.9% NaCl Peripheral Flush Adult/Peds IV ×3 (05:58→23:05)
[2019-01-05 06:50] LABS: Bedside Glucose 140 mg/dL (70-110)
[2019-01-05] MEDS: Famotidine 20 MG Tablet PO ×2 (08:45→22:55)
[2019-01-05] MEDS: buPROPion 100 MG Tablet PO ×2 (08:45→22:56)
[2019-01-05] MEDS: Clopidogrel Bisulfate 75 MG Tablet PO (08:45)
[2019-01-05] MEDS: Metoprolol Tartrate 25 MG Tablet PO ×2 (08:45→22:56)
[2019-01-05] MEDS: Oseltamivir Phosphate 75 MG Capsule PO ×2 (08:45→22:55)
[2019-01-05] MEDS: Enoxaparin 40 MG/0.4 ML Syringe SC (08:47)
[2019-01-05] MEDS: Losartan Potassium 25 MG Tablet PO (08:47)
[2019-01-05] MEDS: Furosemide 40 MG Tablet PO ×2 (08:47→17:11)
[2019-01-05] MEDS: Multivitamins,Therapeutic Tablet 1 TABLET PO (08:47)
[2019-01-05] MEDS: Azelastine HCl NASAL.SRY 1 SPRAY NASAL ×2 (08:47→22:55)
[2019-01-05] MEDS: ROFLUMILAST 500 MCG TABLET PO (08:47)
[2019-01-05] MEDS: Aspirin 81 MG TAB.CHEW PO (08:47)
--- NOTE | 2019-01-05 10:31 | PN_ITS ---
Subjective: The patient was seen and examined at the bedside this morning. Events from the last 24 hours have been reviewed. The patient is currently afebrile, hemodynamically stable and maintaining appropriate oxygen saturations on 4 L/min via nasal cannula. Breathing quality still not back to baseline. Objective: The patient's most recent lab work, culture data and imaging studies have all been personally reviewed. Blood cultures are currently pending. Respiratory viral panel was positive for influenza A. CTA chest revealed no evidence for pulmonary embolism. There was evidence of diffuse bilateral emphysematous changes along with linear scarring in the right upper lobe, likely corresponding to the density noted on the patient's plain film chest x-ray. - Physical Exam General: Alert, Cooperative, No apparent distress HEENT: Atraumatic, PERRLA, Normocephalic Oral: No Gingival or Mucosal Lesions/ Ulcerations Neck: Supple, No Nodes, Trachea Midline Lungs: No rhonchi, No rales, Diminished, Wheezes Cardiovascular: Regular rate, Regular Rhythm, Normal S1, Normal S2, No murmurs Abdomen: Bowel Sounds Present, Soft, Non Tender Extremities: No cyanosis, No edema, Clubbing Skin: No breakdown Musculoskeletal: No Tenderness to Palpation of Joints or Extremities, No Muscle Wasting Lymphatic: No Cervical, Supraclavicular, or Inguinal Adenopathy Neurological: Cranial nerves II-XII grossly intact, Neuro grossly intact Psych/Mental Status: Alert and oriented to time, place, person, mood and affect Vital Signs Temp Pulse Resp BP Pulse Ox 36.3 C L 92 22 H 105/79 96 01/05/19 06:04 01/05/19 08:45 01/05/19 07:14 01/05/19 06:04 01/05/19 07:14 Oxygen Flow Rate (L/min) 4 Oxygen Delivery Method Nasal Cannula Weight: 242 lb 11.663 oz Body Mass Index (BMI) 33.8 Intake and Output for Last 24 Hours 01/03/19 01/04/19 01/05/19 23:59 23:59 23:59 Intake Total 1189 / 1189 1100 / 1100 360 / 360 Output Total 1900 / 1900 2325 / 2325 650 / 650 Balance -711 / -711 -1225 / -1225 -290 / -290 Microbiology Past 72 Hours 01/03/19 09:33 Respiratory Panel (PCR) - Final Mucosa - Nasopharyngeal Influenza A (Subtype H1) 01/03/19 03:20 Influenza Types A,B Direct FA (JEOVANNY) - Final Mucosa - Nasopharyngeal Laboratory Tests Past 24 Hrs 01/05/19 05:10 Sodium 141 Potassium 4.4 Chloride 100 Carbon Dioxide 36.0 H Anion Gap 5 BUN 25 H Creatinine 1.03 Estim Creat Clear Calc 82.25 Est GFR (MDRD) Af Amer 95 Est GFR (MDRD) Non-Af 79 BUN/Creatinine Ratio 24.3 H Glucose 150 H Calcium 8.7 POC Glucose 01/05/19 01/04/19 01/04/19 06:46 21:53 16:40 POC Glucose 140 H 226 H 150 H 01/04/19 10:49 POC Glucose 205 H Clinical Impression(s) from Imaging Studies Chest X-Ray 01/03/19 02:33 IMPRESSION: 1. Spiculated right upper lobe nodule may represent a neoplasm. 2. COPD and pulmonary congestion. Electronically Signed: Debbie Hernandez MD at 3:36 EDT , Service support , Chest CTA 01/03/19 11:28 IMPRESSION: Hyperinflation and emphysematous changes worse in the upper lobes. Scarring at the lung bases with her bronchiectasis and bleb formation. Blood formation in the upper lobes worse on the right side with linear scarring in the right upper lobe. Electronically Signed: Sanchez Blood, at 13:22 EDT , Service support , Medical Necessity - Tobacco Use Smoking Status: Former smoker Assessment/Plan All Active Problems (Last Reviewed 01/03/19 @ 05:42 by Rock Shen MD) COPD exacerbation (Acute) Sepsis (Resolved) Acute and chronic respiratory failure with hypoxia (Acute) Acute exacerbation of COPD with asthma (Acute) History of rotator cuff surgery (Resolved) Anxiety (Acute) Healthcare-associated pneumonia (Resolved) Chronic respiratory failure with hypoxia and hypercapnia (Acute) COPD with acute exacerbation (Acute) Acute kidney injury (Resolved) Nicotine dependence (Resolved) Sepsis (Resolved) RECOMMENDATIONS: 1. Wean supplemental oxygen to maintain saturations 88-92%. 2. Continue scheduled bronchodilators and steroids. 3. Continue Tamiflu to complete treatment course. Anticipate prolonged recovery phase, given the patient's underlying lung disease. 4. Continue BiPAP therapy with naps and nightly. 5. Continue diuretic therapy. IMPRESSIONS: 1. Acute on chronic combined respiratory failure/baseline stage IV COPD with exacerbation secondary to influenza A infection The patient presented to the hospital and was noted to be positive for influenza A. He is currently on appropriate therapy with Tamiflu, scheduled bronchodilators and steroids. His supplemental oxygen will be weaned accordingly. The right upper lobe nodular density noted on plain film chest x- ray appears to be scar tissue on follow-up CT chest. The patient does have a baseline 10 mg daily prednisone requirement. Would plan to wean supplemental oxygen to maintain saturations 88-92%. I do anticipate that the patient will have a prolonged recovery phase from his illness, given the severity of his underlying lung disease. 2. Obstructive sleep apnea The patient is currently prescribed the use of a trilogy machine on a nocturnal basis. BiPAP can be utilized as ordered with naps and nightly for now. 3. Heart failure with preserved ejection fraction Continue diuretic regimen as ordered. 4. Coronary artery disease/diabetes/hyperlipidemia/hypertension Complicates care, management, recovery and prognosis. Likely okay to continue home medications as indicated. This note was generated with [employer] dictation software. It may contain incorrect words, spelling, and punctuation that were not noted in checking the note before signing. Code Visit Inpatient E&M: 57280 Subs Hosp L2
--- NOTE | 2019-01-05 10:34 | PCM.PROGNOTE ---
Subjective: Patient seen and examined. Reports his breathing is the same. Denies fever, chills. Intermittent nonproductive cough. - Physical Exam General: Alert, Oriented x3, Cooperative HEENT: Atraumatic, PERRLA, EOMI, Normocephalic Neck: Supple, No JVD, Negative Carotid Bruits Lungs: Diminished, Wheezes Cardiovascular: Regular rate, Regular Rhythm, Normal S1, Normal S2, No murmurs Abdomen: Bowel Sounds Present, Soft, Non Tender, Non-Distended, Obese Extremities: No clubbing, No cyanosis, No edema, Capillary Refill Less than 3 Seconds Skin: No rashes, No breakdown Musculoskeletal: No Tenderness to Palpation of Joints or Extremities Neurological: Cranial nerves II-XII grossly intact, Neuro grossly intact Psych/Mental Status: Normal Affect, Appropriate Vital Signs Temp Pulse Resp BP Pulse Ox 97.4 F L 92 22 H 105/79 96 01/05/19 06:04 01/05/19 08:45 01/05/19 07:14 01/05/19 06:04 01/05/19 07:14 Oxygen Flow Rate (L/min) 4 Oxygen Delivery Method Nasal Cannula Weight: 242 lb 11.663 oz Body Mass Index (BMI) 33.8 Intake and Output for Last 24 Hours 01/03/19 01/04/19 01/05/19 23:59 23:59 23:59 Intake Total 1189 / 1189 1100 / 1100 360 / 360 Output Total 1900 / 1900 2325 / 2325 650 / 650 Balance -711 / -711 -1225 / -1225 -290 / -290 Microbiology Past 72 Hours 01/03/19 09:33 Respiratory Panel (PCR) - Final Mucosa - Nasopharyngeal Influenza A (Subtype H1) 01/03/19 03:20 Influenza Types A,B Direct FA (JEOVANNY) - Final Mucosa - Nasopharyngeal Laboratory Tests Past 24 Hrs 01/05/19 05:10 Sodium 141 Potassium 4.4 Chloride 100 Carbon Dioxide 36.0 H Anion Gap 5 BUN 25 H Creatinine 1.03 Estim Creat Clear Calc 82.25 Est GFR (MDRD) Af Amer 95 Est GFR (MDRD) Non-Af 79 BUN/Creatinine Ratio 24.3 H Glucose 150 H Calcium 8.7 POC Glucose 01/05/19 01/04/19 01/04/19 06:46 21:53 16:40 POC Glucose 140 H 226 H 150 H 01/04/19 10:49 POC Glucose 205 H Medical Necessity - Tobacco Use Smoking Status: Former smoker Assessment/Plan All Active Problems (Last Reviewed 01/03/19 @ 05:42 by Rock Shen MD) COPD exacerbation (Acute) Sepsis (Resolved) Acute and chronic respiratory failure with hypoxia (Acute) Acute exacerbation of COPD with asthma (Acute) History of rotator cuff surgery (Resolved) Anxiety (Acute) Healthcare-associated pneumonia (Resolved) Chronic respiratory failure with hypoxia and hypercapnia (Acute) COPD with acute exacerbation (Acute) Acute kidney injury (Resolved) Nicotine dependence (Resolved) Sepsis (Resolved) 1. Acute on chronic hypoxic respiratory failure secondary to acute exacerbation of COPD as a result of acute influenza A-continue Tamiflu, IV Solu-Medrol and albuterol/DuoNeb aerosols. Pulmonary following. Discontinue antibiotics. CT of chest shows hyperinflation and emphysematous changes worse in the upper lobes. Scarring at the lung bases with bronchiectasis and bleb formation. Right upper lobe scarring. Continue supplement oxygen to maintain O2 at 88-92%. BiPAP nightly and with naps. 2. Obstructive sleep apnea-continue BiPAP as noted above. Patient has trilogy at home. 3. Chronic diastolic CHF-no acute exacerbation. Continue home Lasix regimen. 4. CAD with history of stents-continue aspirin, Plavix, statin, beta-misti. 5. Type 2 diabetes [id number] AC at bedtime with sliding scale insulin. 6. Hypertension-stable, continue home losartan, Lopressor regimen. 7. Hyperlipidemia-continue statin. 8. Obesity-encouraged diet lifestyle modifications. Nutrition consult. 9. Iron deficiency anemia-continue iron supplementation. DVT prophylaxis-Lovenox subcu This patient was seen by TEVIN Le under the supervision of Dr. Arce.
--- NOTE | 2019-01-05 10:37 | PN_ITS ---
Addendum entered and electronically signed by TEVIN Le 01/05/19 11:32: Code Visit Sepsis ruled out- patient did not meet sepsis criteria on admission. Original Note: Subjective: Patient seen and examined. Reports his breathing is the same. Denies fever, chills. Intermittent nonproductive cough. - Physical Exam General: Alert, Oriented x3, Cooperative HEENT: Atraumatic, PERRLA, EOMI, Normocephalic Neck: Supple, No JVD, Negative Carotid Bruits Lungs: Diminished, Wheezes Cardiovascular: Regular rate, Regular Rhythm, Normal S1, Normal S2, No murmurs Abdomen: Bowel Sounds Present, Soft, Non Tender, Non-Distended, Obese Extremities: No clubbing, No cyanosis, No edema, Capillary Refill Less than 3 Seconds Skin: No rashes, No breakdown Musculoskeletal: No Tenderness to Palpation of Joints or Extremities Neurological: Cranial nerves II-XII grossly intact, Neuro grossly intact Psych/Mental Status: Normal Affect, Appropriate Vital Signs Temp Pulse Resp BP Pulse Ox 97.4 F L 92 22 H 105/79 96 01/05/19 06:04 01/05/19 08:45 01/05/19 07:14 01/05/19 06:04 01/05/19 07:14 Oxygen Flow Rate (L/min) 4 Oxygen Delivery Method Nasal Cannula Weight: 242 lb 11.663 oz Body Mass Index (BMI) 33.8 Intake and Output for Last 24 Hours 01/03/19 01/04/19 01/05/19 23:59 23:59 23:59 Intake Total 1189 / 1189 1100 / 1100 360 / 360 Output Total 1900 / 1900 2325 / 2325 650 / 650 Balance -711 / -711 -1225 / -1225 -290 / -290 Microbiology Past 72 Hours 01/03/19 09:33 Respiratory Panel (PCR) - Final Mucosa - Nasopharyngeal Influenza A (Subtype H1) 01/03/19 03:20 Influenza Types A,B Direct FA (JEOVANNY) - Final Mucosa - Nasopharyngeal Laboratory Tests Past 24 Hrs 01/05/19 05:10 Sodium 141 Potassium 4.4 Chloride 100 Carbon Dioxide 36.0 H Anion Gap 5 BUN 25 H Creatinine 1.03 Estim Creat Clear Calc 82.25 Est GFR (MDRD) Af Amer 95 Est GFR (MDRD) Non-Af 79 BUN/Creatinine Ratio 24.3 H Glucose 150 H Calcium 8.7 POC Glucose 01/05/19 01/04/19 01/04/19 06:46 21:53 16:40 POC Glucose 140 H 226 H 150 H 01/04/19 10:49 POC Glucose 205 H Medical Necessity - Tobacco Use Smoking Status: Former smoker Assessment/Plan All Active Problems (Last Reviewed 01/03/19 @ 05:42 by Rock Shen MD) COPD exacerbation (Acute) Sepsis (Resolved) Acute and chronic respiratory failure with hypoxia (Acute) Acute exacerbation of COPD with asthma (Acute) History of rotator cuff surgery (Resolved) Anxiety (Acute) Healthcare-associated pneumonia (Resolved) Chronic respiratory failure with hypoxia and hypercapnia (Acute) COPD with acute exacerbation (Acute) Acute kidney injury (Resolved) Nicotine dependence (Resolved) Sepsis (Resolved) 1. Acute on chronic hypoxic respiratory failure secondary to acute exacerbation of COPD as a result of acute influenza A-continue Tamiflu, IV Solu-Medrol and albuterol/DuoNeb aerosols. Pulmonary following. Discontinue antibiotics. CT of chest shows hyperinflation and emphysematous changes worse in the upper lobes. Scarring at the lung bases with bronchiectasis and bleb formation. Right upper lobe scarring. Continue supplement oxygen to maintain O2 at 88-92%. BiPAP nightly and with naps. 2. Obstructive sleep apnea-continue BiPAP as noted above. Patient has trilogy at home. 3. Chronic diastolic CHF-no acute exacerbation. Continue home Lasix regimen. 4. CAD with history of stents-continue aspirin, Plavix, statin, beta-misti. 5. Type 2 diabetes nhimroey-[id number] AC at bedtime with sliding scale in sulin. 6. Hypertension-stable, continue home losartan, Lopressor regimen. 7. Hyperlipidemia-continue statin. 8. Obesity-encouraged diet lifestyle modifications. Nutrition consult. 9. Iron deficiency anemia-continue iron supplementation. DVT prophylaxis-Lovenox subcu This patient was seen by TEVIN Le under the supervision of Dr. Arce.
[2019-01-05 11:16] LABS: Bedside Glucose 214 mg/dL (70-110)
[2019-01-05] MEDS: Insulin Lispro 100 UNIT/ML INSULN.PEN SC ×3 (12:13→23:01)
[2019-01-05] MEDS: Ferrous Sulfate 325 MG Tablet PO (12:14)
[2019-01-05 16:21] LABS: Bedside Glucose 151 mg/dL (70-110)
[2019-01-05 22:50] LABS: Bedside Glucose 163 mg/dL (70-110)
[2019-01-05] MEDS: Atorvastatin Calcium 40 MG Tablet PO (22:56)
[2019-01-06] VITALS (14 sets, daily range): BP systolic 92–119; BP diastolic 46–77; PULSE 70–92; RESP 12–26; TEMP 36.6–37.2; O2SAT 94–97
[2019-01-06] MEDS: Ipratropium/Albuterol Sulfate 3 ML AMPUL.NEB INHALATION ×3 (03:18→11:29)
[2019-01-06] MEDS: 0.9% NaCl Peripheral Flush Adult/Peds IV (05:15)
--- NOTE | 2019-01-06 06:16 | PN_ITS ---
Subjective: The patient was seen and examined at the bedside this morning. Events from the last 24 hours have been reviewed. The patient is currently afebrile, hemodynamically stable and maintaining appropriate oxygen saturations on his baseline supplemental oxygen. Objective: The patient's most recent lab work, culture data and imaging studies have all been personally reviewed. Blood cultures are currently pending. Respiratory viral panel was positive for influenza A. CTA chest revealed no evidence for pulmonary embolism. There was evidence of diffuse bilateral emphysematous changes along with linear scarring in the right upper lobe, likely corresponding to the density noted on the patient's plain film chest x-ray. - Physical Exam General: Alert, Cooperative, No apparent distress HEENT: Atraumatic, PERRLA, Normocephalic Oral: Moist Mucosa, No Gingival or Mucosal Lesions/ Ulcerations Neck: Supple, No Nodes, Trachea Midline Lungs: No rhonchi, No rales, Diminished, Wheezes Cardiovascular: Regular rate, Regular Rhythm, Normal S1, Normal S2, No murmurs Abdomen: Bowel Sounds Present, Soft, Non Tender Extremities: No cyanosis, No edema, Clubbing Skin: No breakdown Musculoskeletal: No Tenderness to Palpation of Joints or Extremities Lymphatic: No Cervical, Supraclavicular, or Inguinal Adenopathy Neurological: Neuro grossly intact Psych/Mental Status: Normal Affect, Appropriate Vital Signs Temp Pulse Resp BP Pulse Ox 36.6 C 72 16 92/46 L 96 01/06/19 05:05 01/06/19 05:05 01/06/19 05:05 01/06/19 05:05 01/06/19 05:05 Oxygen Flow Rate (L/min) 4 Oxygen Delivery Method CPAP Weight: 242 lb 11.663 oz Body Mass Index (BMI) 33.8 Intake and Output for Last 24 Hours 01/04/19 01/05/19 01/06/19 23:59 23:59 23:59 Intake Total 1100 / 1100 1370 / 1370 70 / 70 Output Total 2325 / 2325 2076 / 2076 300 / 300 Balance -1225 / -1225 -706 / -706 -230 / -230 Microbiology Past 72 Hours 01/03/19 03:48 Blood Culture - Preliminary Blood Culture (Wb) #2 - Right Hand No growth in 48 hours. 01/03/19 02:40 Blood Culture - Preliminary Blood Culture (Wb) - Anticubital Right No growth in 48 hours. 01/03/19 09:33 Respiratory Panel (PCR) - Final Mucosa - Nasopharyngeal Influenza A (Subtype H1) 01/03/19 03:20 Influenza Types A,B Direct FA (JEOVANNY) - Final Mucosa - Nasopharyngeal POC Glucose 01/05/19 01/05/19 01/05/19 22:46 16:11 11:09 POC Glucose 163 H 151 H 214 H 01/05/19 06:46 POC Glucose 140 H Clinical Impression(s) from Imaging Studies Chest X-Ray 01/03/19 02:33 IMPRESSION: 1. Spiculated right upper lobe nodule may represent a neoplasm. 2. COPD and pulmonary congestion. Electronically Signed: Debbie Hernandez MD at 3:36 EDT , Service support , Chest CTA 01/03/19 11:28 IMPRESSION: Hyperinflation and emphysematous changes worse in the upper lobes. Scarring at the lung bases with her bronchiectasis and bleb formation. Blood formation in the upper lobes worse on the right side with linear scarring in the right upper lobe. Electronically Signed: Sanchez Blood, at 13:22 EDT , Service support , Medical Necessity - Tobacco Use Smoking Status: Former smoker Assessment/Plan All Active Problems (Last Reviewed 01/03/19 @ 05:42 by Rock Shen MD) COPD exacerbation (Acute) Sepsis (Resolved) Acute and chronic respiratory failure with hypoxia (Acute) Acute exacerbation of COPD with asthma (Acute) History of rotator cuff surgery (Resolved) Anxiety (Acute) Healthcare-associated pneumonia (Resolved) Chronic respiratory failure with hypoxia and hypercapnia (Acute) COPD with acute exacerbation (Acute) Acute kidney injury (Resolved) Nicotine dependence (Resolved) Sepsis (Resolved) RECOMMENDATIONS: 1. Wean supplemental oxygen to maintain saturations 88-92%. 2. Continue scheduled bronchodilators and steroids. Okay to transition from IV methylprednisone to prednisone 40 mg daily by mouth. 3. Continue Tamiflu to complete treatment course. Anticipate prolonged recovery phase, given the patient's underlying lung disease. 4. Continue BiPAP therapy with naps and nightly. 5. Continue diuretic therapy. 6. At discharge, would recommend weaning his prednisone by 10 mg every 3 days until he resumes his 10 mg daily baseline dose. IMPRESSIONS: 1. Acute on chronic combined respiratory failure/baseline stage IV COPD with exacerbation secondary to influenza A infection The patient presented to the hospital and was noted to be positive for influenza A. He is currently on appropriate therapy with Tamiflu, scheduled bronchodilators and steroids. His supplemental oxygen will be weaned accordingly. The right upper lobe nodular density noted on plain film chest x- ray appears to be scar tissue on follow-up CT chest. The patient does have a baseline 10 mg daily prednisone requirement. Would plan to wean supplemental oxygen to maintain saturations 88-92%. I do anticipate that the patient will have a prolonged recovery phase from his illness, given the severity of his underlying lung disease. 2. Obstructive sleep apnea The patient is currently prescribed the use of a trilogy machine on a nocturnal basis. BiPAP can be utilized as ordered with naps and nightly for now. 3. Heart failure with preserved ejection fraction Continue diuretic regimen as ordered. 4. Coronary artery disease/diabetes/hyperlipidemia/hypertension Complicates care, management, recovery and prognosis. Likely okay to continue h ome medications as indicated. This note was generated with [employer] dictation software. It may contain incorrect words, spelling, and punctuation that were not noted in checking the note before signing. Code Visit Inpatient E&M: 75572 Subs Hosp L2
[2019-01-06 07:01] LABS: Bedside Glucose 155 mg/dL (70-110)
[2019-01-06] MEDS: Oseltamivir Phosphate 75 MG Capsule PO (08:33)
[2019-01-06] MEDS: Multivitamins,Therapeutic Tablet 1 TABLET PO (08:33)
[2019-01-06] MEDS: buPROPion 100 MG Tablet PO (08:33)
[2019-01-06] MEDS: Clopidogrel Bisulfate 75 MG Tablet PO (08:33)
[2019-01-06] MEDS: ROFLUMILAST 500 MCG TABLET PO (08:33)
[2019-01-06] MEDS: Metoprolol Tartrate 25 MG Tablet PO (08:34)
[2019-01-06] MEDS: Furosemide 40 MG Tablet PO (08:34)
[2019-01-06] MEDS: Losartan Potassium 25 MG Tablet PO (08:34)
[2019-01-06] MEDS: Enoxaparin 40 MG/0.4 ML Syringe SC (08:34)
[2019-01-06] MEDS: Aspirin 81 MG TAB.CHEW PO (08:34)
[2019-01-06] MEDS: Famotidine 20 MG Tablet PO (08:34)
[2019-01-06] MEDS: Azelastine HCl NASAL.SRY 1 SPRAY NASAL (08:36)
[2019-01-06] MEDS: Insulin Lispro 100 UNIT/ML INSULN.PEN SC ×2 (08:37→12:07)
--- NOTE | 2019-01-06 10:09 | NURSING ---
Student nurse charting reviewed.
--- NOTE | 2019-01-06 10:45 | PCM.DC ---
You will use the following diet at home:: Calorie/Carbohydrate Controlled (specify 1200, 1400, etc) Discharge Activity: Return to Normal Activity Additional Instructions: Continue previous daily prednisone regimen 10mg following prescribed prednisone taper. Allergies/Adverse Reactions: Allergies diazepam [From Valium] Adverse Reaction (Verified 01/03/19 02:33) Vomiting Medications to take at Discharge Aspirin [Aspirin, Baby] 81 mg PO DAILY@0800 10/04/14 Atorvastatin Calcium [Lipitor] 40 mg PO QHS 10/04/14 Clopidogrel Bisulfate [Plavix] 75 mg PO DAILY 10/04/14 Furosemide [Lasix] 40 mg PO BID 10/04/14 Multivitamins,Therapeutic [Multivitamin] 1 tab PO DAILY 10/04/14 Budesonide/Formoterol 160/4.5 [Symbicort 160/4.5 Mcg Inhaler (SP)] 2 puff INHALATION BID 02/24/15 Roflumilast [Daliresp] 500 mcg PO DAILY 02/24/15 Famotidine [Pepcid] 20 mg PO BID 08/01/15 Metformin HCl [Glucophage] 500 mg PO QHS 10/08/16 bupropion HCl 100 mg tablet 100 mg PO BID 10/25/17 Albuterol Aerosols [Ventolin Aerosols] 2.5 mg INHALATION Q2H PRN PRN #1 box 11/08/17 Oxygen, Home [Home Oxygen] 4 - 6 lpm NASAL CONT #1 11/08/17 albuterol sulfate HFA 90 mcg/actuation aerosol inhaler 2 puff INHALATION Q4H PRN g 11/11/17 tiotropium bromide 18 mcg capsule with inhalation device 1 cap INHALATION DAILY 11/11/17 Cholecalciferol (VIT D3) [Vitamin D3] 1,000 unit PO DAILY tab 02/13/18 ipratropium bromide 0.02 % solution for inhalation 0.5 mg INHALATION Q4H ml 05/01/18 metformin 500 mg tablet 750 mg PO BREAKFAST tab 07/19/18 prednisone 10 mg tablet 10 mg PO DAILY #30 tab 09/08/18 losartan 25 mg tablet 25 mg PO DAILY 09/14/18 Budesonide Aerosol [Pulmicort Respules] 0.5 mg INHALATION BID 10/14/18 Ferrous Sulfate 325 mg PO DAILY 10/14/18 metoprolol tartrate 25 mg tablet 25 mg PO BID #60 tab 12/08/18 azelastine 137 mcg (0.1 %) nasal spray aerosol 1 spray INTRANASAL BID #30 ml 12/19/18 clotrimazole 10 mg nitish 10 mg MUCOUS MEMBRANE TID #90 tab 12/19/18 Oseltamivir Phosphate [Tamiflu] 75 mg PO BID #3 capsule 01/06/19 Prednisone See Taper PO DAILY #30 tablet 01/06/19 The following prescriptions were given: Prednisone See Taper PO DAILY #30 tablet Oseltamivir Phosphate [Tamiflu] 75 mg PO BID #3 capsule Primary Care Physician: Kenia Matthew MD [Primary Care Provider] - Please follow up with your Primary Care Physician in: 1 Week Test Results: Test results from this visit will be discussed in further detail at your follow-up appointment, if applicable. Please Follow Up With: Zac Mendez MD - Or Jesika Ortiz When: 2 Weeks Proposed Discharge Date: 01/06/19
--- NOTE | 2019-01-06 10:49 | DCINST_ITS ---
You will use the following diet at home:: Calorie/Carbohydrate Controlled (specify 1200, 1400, etc) Discharge Activity: Return to Normal Activity Additional Instructions: Continue previous daily prednisone regimen 10mg following prescribed prednisone taper. Allergies/Adverse Reactions: Allergies diazepam [From Valium] Adverse Reaction (Verified 01/03/19 02:33) Vomiting Medications to take at Discharge Aspirin [Aspirin, Baby] 81 mg PO DAILY@0800 10/04/14 Atorvastatin Calcium [Lipitor] 40 mg PO QHS 10/04/14 Clopidogrel Bisulfate [Plavix] 75 mg PO DAILY 10/04/14 Furosemide [Lasix] 40 mg PO BID 10/04/14 Multivitamins,Therapeutic [Multivitamin] 1 tab PO DAILY 10/04/14 Budesonide/Formoterol 160/4.5 [Symbicort 160/4.5 Mcg Inhaler (SP)] 2 puff INHALATION BID 02/24/15 Roflumilast [Daliresp] 500 mcg PO DAILY 02/24/15 Famotidine [Pepcid] 20 mg PO BID 08/01/15 Metformin HCl [Glucophage] 500 mg PO QHS 10/08/16 bupropion HCl 100 mg tablet 100 mg PO BID 10/25/17 Albuterol Aerosols [Ventolin Aerosols] 2.5 mg INHALATION Q2H PRN PRN #1 box 11/08/17 Oxygen, Home [Home Oxygen] 4 - 6 lpm NASAL CONT #1 11/08/17 albuterol sulfate HFA 90 mcg/actuation aerosol inhaler 2 puff INHALATION Q4H PRN g 11/11/17 tiotropium bromide 18 mcg capsule with inhalation device 1 cap INHALATION DAILY 11/11/17 Cholecalciferol (VIT D3) [Vitamin D3] 1,000 unit PO DAILY tab 02/13/18 ipratropium bromide 0.02 % solution for inhalation 0.5 mg INHALATION Q4H ml metformin 500 mg tablet 750 mg PO BREAKFAST tab 07/19/18 prednisone 10 mg tablet 10 mg PO DAILY #30 tab 09/08/18 losartan 25 mg tablet 25 mg PO DAILY 09/14/18 Budesonide Aerosol [Pulmicort Respules] 0.5 mg INHALATION BID 10/14/18 Ferrous Sulfate 325 mg PO DAILY 10/14/18 metoprolol tartrate 25 mg tablet 25 mg PO BID #60 tab 12/08/18 azelastine 137 mcg (0.1 %) nasal spray aerosol 1 spray INTRANASAL BID #30 ml 12/19/18 clotrimazole 10 mg nitish 10 mg MUCOUS MEMBRANE TID #90 tab 12/19/18 Oseltamivir Phosphate [Tamiflu] 75 mg PO BID #3 capsule 01/06/19 Prednisone See Taper PO DAILY #30 tablet 01/06/19 The following prescriptions were given: Prednisone See Taper PO DAILY #30 tablet Oseltamivir Phosphate [Tamiflu] 75 mg PO BID #3 capsule Primary Care Physician: Kenia Matthew MD [Primary Care Provider] - Please follow up with your Primary Care Physician in: 1 Week Test Results: Test results from this visit will be discussed in further detail at your follow- up appointment, if applicable. Please Follow Up With: Zac Mendez MD - Or Jesika Ortiz When: 2 Weeks Proposed Discharge Date: 01/06/19
--- NOTE | 2019-01-06 10:49 | PCM.DC.SUM ---
Discharge Date and Diagnosis Date of Admission: 01/03/19 Date of Discharge: 01/06/19 - Primary Discharge Diagnosis 1. Acute on chronic combined hypoxic and hypercapnic respiratory failure secondary to acute exacerbation of stage IV COPD as a result of acute influenza A 2. Obstructive sleep apnea 3. Chronic diastolic CHF 4. CAD with history of stents 5. Type 2 diabetes mellitus 6. Hypertension 7. Hyperlipidemia 8. Obesity 9. Iron deficiency anemia - Secondary Discharge Diagnosis Chronic Problems (Last Reviewed 01/03/19 @ 05:42 by Rock Shen MD) Tobacco abuse (Chronic) Stage 4 very severe COPD by GOLD classification (Chronic) FEV1 20% of predicted CAD (coronary artery disease) (Chronic) Old myocardial infarction (Chronic) Type 2 diabetes mellitus (Chronic) Congestive heart failure (Chronic) MICHELLE (obstructive sleep apnea) (Chronic) Trilogy with 2 LPM oxygen bleed Presence of stent in coronary artery (Chronic ~07/2006) [facility] w/stenting to prox RCA Atherosclerotic heart disease of [place] coronary artery without angina pectoris (Chronic) [facility] w/stenting to prox RCA 07/15 COPD (chronic obstructive pulmonary disease) (Chronic) Hypertension (Chronic) Hyperlipidemia (Chronic) Hospital Course and Treatment Imaging Results: Diagnostic Data Chest X-Ray 01/03/19 02:33 IMPRESSION: 1. Spiculated right upper lobe nodule may represent a neoplasm. 2. COPD and pulmonary congestion. Electronically Signed: Debbie Hernandez MD at 3:36 EDT , Service support , Chest CTA 01/03/19 11:28 IMPRESSION: Hyperinflation and emphysematous changes worse in the upper lobes. Scarring at the lung bases with her bronchiectasis and bleb formation. Blood formation in the upper lobes worse on the right side with linear scarring in the right upper lobe. Electronically Signed: Sanchez Blood, at 13:22 EDT , Service support , Dr. Golden- Pulmonary Operations: None Procedures: None Summary of Care Provided: The patient is a 58 year old M admitted 01/03/2019 due to shortness of breath. 1. Acute on chronic combined hypoxic and hypercapnic respiratory failure secondary to acute exacerbation of stage IV COPD as a result of acute influenza A-CT of chest shows hyperinflation and emphysematous changes worse in the upper lobes. Scarring at the lung bases with bronchiectasis and bleb formation. Right upper lobe scarring. Continue supplement oxygen to maintain O2 at 88-92%. Patient is currently stable on 4 L baseline supplemental oxygen. IV steroids transition to prednisone taper at discharge. Following prescribed prednisone taper, patient will resume daily prednisone regimen of 10 mg. He will continue Tamiflu course at discharge as prescribed. Continue home inhaler/aerosol regimen. Patient follows with Dr. Mendez. Follow with Dr. Mendez or Jesika Ortiz NP in 2 weeks. Follow-up with primary care physician 1 week. 2. Obstructive sleep apnea-continue home trilogy. 3. Chronic diastolic CHF-no acute exacerbation. Continue home Lasix regimen. 4. CAD with history of stents-continue aspirin, Plavix, statin, beta-misti. 5. Type 2 diabetes mellitus-continue home metformin regimen. Last hemoglobin A1c September 2017 6.7%. Recommend repeat as outpatient by primary care physician. 6. Hypertension-stable, continue home losartan, Lopressor regimen. 7. Hyperlipidemia-continue statin. 8. Obesity-encouraged diet lifestyle modifications. 9. Iron deficiency anemia-continue iron supplementation. General: Alert, Oriented x3, Cooperative HEENT: Atraumatic, PERRLA, EOMI, Normocephalic Neck: Supple, No JVD, Negative Carotid Bruits Lungs: Diminished, Wheezes Cardiovascular: Regular rate, Regular Rhythm, Normal S1, Normal S2, No murmurs Abdomen: Bowel Sounds Present, Soft, Non Tender, Non-Distended, Obese Extremities: No clubbing, No cyanosis, No edema, Capillary Refill Less than 3 Seconds Skin: No rashes, No breakdown Musculoskeletal: No Tenderness to Palpation of Joints or Extremities Neurological: Cranial nerves II-XII grossly intact, Neuro grossly intact Psych/Mental Status: Normal Affect, Appropriate Patient seen and examined prior to discharge. Physical assessment as noted above. Patient is stable for discharge with follow up recommendations as noted above. This patient was seen by TEVIN Le under the supervision of Dr. Arce. - Physical Exam Vital Signs Temp Pulse Resp BP Pulse Ox 98.9 F 76 16 116/77 95 01/06/19 07:55 01/06/19 09:03 01/06/19 09:03 01/06/19 07:55 01/06/19 07:55 Oxygen Flow Rate (L/min) 4 Oxygen Delivery Method Nasal Cannula Weight: 242 lb 11.663 oz Body Mass Index (BMI) 33.8 Intake and Output for Last 24 Hours 01/04/19 01/05/19 01/06/19 23:59 23:59 23:59 Intake Total 1100 / 1100 1370 / 1370 70 / 70 Output Total 2325 / 2325 2076 / 2076 300 / 300 Balance -1225 / -1225 -706 / -706 -230 / -230 Microbiology Past 72 Hours 01/03/19 03:48 Blood Culture - Preliminary Blood Culture (Wb) #2 - Right Hand No growth in 48 hours. 01/03/19 02:40 Blood Culture - Preliminary Blood Culture (Wb) - Anticubital Right No growth in 48 hours. 01/03/19 09:33 Respiratory Panel (PCR) - Final Mucosa - Nasopharyngeal Influenza A (Subtype H1) POC Glucose 01/06/19 01/05/19 01/05/19 06:54 22:46 16:11 POC Glucose 155 H 163 H 151 H 01/05/19 11:09 POC Glucose 214 H Discharge Diet: 1800 Calorie Control Diet, Carb Control Diet Discharge Activity: Return to Normal Activity Home Medications: Medications to take at Discharge Aspirin [Aspirin, Baby] 81 mg PO DAILY@0800 10/04/14 Atorvastatin Calcium [Lipitor] 40 mg PO QHS 10/04/14 Clopidogrel Bisulfate [Plavix] 75 mg PO DAILY 10/04/14 Furosemide [Lasix] 40 mg PO BID 10/04/14 Multivitamins,Therapeutic [Multivitamin] 1 tab PO DAILY 10/04/14 Budesonide/Formoterol 160/4.5 [Symbicort 160/4.5 Mcg Inhaler (SP)] 2 puff INHALATION BID 02/24/15 Roflumilast [Daliresp] 500 mcg PO DAILY 02/24/15 Famotidine [Pepcid] 20 mg PO BID 08/01/15 Metformin HCl [Glucophage] 500 mg PO QHS 10/08/16 bupropion HCl 100 mg tablet 100 mg PO BID 10/25/17 Albuterol Aerosols [Ventolin Aerosols] 2.5 mg INHALATION Q2H PRN PRN #1 box 11/08/17 Oxygen, Home [Home Oxygen] 4 - 6 lpm NASAL CONT #1 11/08/17 albuterol sulfate HFA 90 mcg/actuation aerosol inhaler 2 puff INHALATION Q4H PRN g 11/11/17 tiotropium bromide 18 mcg capsule with inhalation device 1 cap INHALATION DAILY 11/11/17 Cholecalciferol (VIT D3) [Vitamin D3] 1,000 unit PO DAILY tab 02/13/18 ipratropium bromide 0.02 % solution for inhalation 0.5 mg INHALATION Q4H ml 05/01/18 metformin 500 mg tablet 750 mg PO BREAKFAST tab 07/19/18 prednisone 10 mg tablet 10 mg PO DAILY #30 tab 09/08/18 losartan 25 mg tablet 25 mg PO DAILY 09/14/18 Budesonide Aerosol [Pulmicort Respules] 0.5 mg INHALATION BID 10/14/18 Ferrous Sulfate 325 mg PO DAILY 10/14/18 metoprolol tartrate 25 mg tablet 25 mg PO BID #60 tab 12/08/18 azelastine 137 mcg (0.1 %) nasal spray aerosol 1 spray INTRANASAL BID #30 ml 12/19/18 clotrimazole 10 mg nitish 10 mg MUCOUS MEMBRANE TID #90 tab 12/19/18 Oseltamivir Phosphate [Tamiflu] 75 mg PO BID #3 capsule 01/06/19 Prednisone See Taper PO DAILY #30 tablet 01/06/19 Following Prescrptions Were Given to Patient: Prednisone See Taper PO DAILY #30 tablet Oseltamivir Phosphate [Tamiflu] 75 mg PO BID #3 capsule Primary Care Physician: Kenia Matthew MD [Primary Care Provider] - Please follow up with your Primary Care Physician in: 1 Week Please Follow Up With: Zac Mendez MD - Or Jesika Ortiz When: 2 Weeks Disposition: Home Minutes spent on discharge:: 35 Patient Condition:: Stable Medical Necessity - Tobacco Use Smoking Status: Former smoker Meaningful Use Info Meaningful Use Diagnoses (Choose all that apply): None applicable
--- NOTE | 2019-01-06 10:57 | DS.PCM_ITS ---
Discharge Date and Diagnosis Date of Admission: 01/03/19 Date of Discharge: 01/06/19 - Primary Discharge Diagnosis 1. Acute on chronic combined hypoxic and hypercapnic respiratory failure secondary to acute exacerbation of stage IV COPD as a result of acute influenza A 2. Obstructive sleep apnea 3. Chronic diastolic CHF 4. CAD with history of stents 5. Type 2 diabetes mellitus 6. Hypertension 7. Hyperlipidemia 8. Obesity 9. Iron deficiency anemia - Secondary Discharge Diagnosis Chronic Problems (Last Reviewed 01/03/19 @ 05:42 by Rock Shen MD) Tobacco abuse (Chronic) Stage 4 very severe COPD by GOLD classification (Chronic) FEV1 20% of predicted CAD (coronary artery disease) (Chronic) Old myocardial infarction (Chronic) Type 2 diabetes mellitus (Chronic) Congestive heart failure (Chronic) MICHELLE (obstructive sleep apnea) (Chronic) Trilogy with 2 LPM oxygen bleed Presence of stent in coronary artery (Chronic ~07/2006) [facility] w/stenting to prox RCA Atherosclerotic heart disease of [place] coronary artery without angina pectoris (Chronic) [facility] w/stenting to prox RCA 07/15 COPD (chronic obstructive pulmonary disease) (Chronic) Hypertension (Chronic) Hyperlipidemia (Chronic) Hospital Course and Treatment Imaging Results: Diagnostic Data Chest X-Ray 01/03/19 02:33 IMPRESSION: 1. Spiculated right upper lobe nodule may represent a neoplasm. 2. COPD and pulmonary congestion. Electronically Signed: Debbie Hernandez MD at 3:36 EDT , Service support , Chest CTA 01/03/19 11:28 IMPRESSION: Hyperinflation and emphysematous changes worse in the upper lobes. Scarring at the lung bases with her bronchiectasis and bleb formation. Blood formation in the upper lobes worse on the right side with linear scarring in the right upper lobe. Electronically Signed: Sanchez Blood, at 13:22 EDT , Service support , Dr. Golden- Pulmonary Operations: None Procedures: None Summary of Care Provided: The patient is a 58 year old M admitted 01/03/2019 due to shortness of breath. 1. Acute on chronic combined hypoxic and hypercapnic respiratory failure secondary to acute exacerbation of stage IV COPD as a result of acute influenza A-CT of chest shows hyperinflation and emphysematous changes worse in the upper lobes. Scarring at the lung bases with bronchiectasis and bleb formation. Right upper lobe scarring. Continue supplement oxygen to maintain O2 at 88-92%. Patient is currently stable on 4 L baseline supplemental oxygen. IV steroids transition to prednisone taper at discharge. Following prescribed prednisone taper, patient will resume daily prednisone regimen of 10 mg. He will continue Tamiflu course at discharge as prescribed. Continue home inhaler/aerosol regimen. Patient follows with Dr. Mendez. Follow with Dr. Mendez or Jesika Ortiz NP in 2 weeks. Follow-up with primary care physician 1 week. 2. Obstructive sleep apnea-continue home trilogy. 3. Chronic diastolic CHF-no acute exacerbation. Continue home Lasix regimen. 4. CAD with history of stents-continue aspirin, Plavix, statin, beta-misti. 5. Type 2 diabetes mellitus-continue home metformin regimen. Last hemoglobin A1c September 2017 6.7%. Recommend repeat as outpatient by primary care physician. 6. Hypertension-stable, continue home losartan, Lopressor regimen. 7. Hyperlipidemia-continue statin. 8. Obesity-encouraged diet lifestyle modifications. 9. Iron deficiency anemia-continue iron supplementation. General: Alert, Oriented x3, Cooperative HEENT: Atraumatic, PERRLA, EOMI, Normocephalic Neck: Supple, No JVD, Negative Carotid Bruits Lungs: Diminished, Wheezes Cardiovascular: Regular rate, Regular Rhythm, Normal S1, Normal S2, No murmurs Abdomen: Bowel Sounds Present, Soft, Non Tender, Non-Distended, Obese Extremities: No clubbing, No cyanosis, No edema, Capillary Refill Less than 3 Seconds Skin: No rashes, No breakdown Musculoskeletal: No Tenderness to Palpation of Joints or Extremities Neurological: Cranial nerves II-XII grossly intact, Neuro grossly intact Psych/Mental Status: Normal Affect, Appropriate Patient seen and examined prior to discharge. Physical assessment as noted above. Patient is stable for discharge with follow up recommendations as noted above. This patient was seen by TEVIN Le under the supervision of Dr. Arce. - Physical Exam Vital Signs Temp Pulse Resp BP Pulse Ox 98.9 F 76 16 116/77 95 01/06/19 07:55 01/06/19 09:03 01/06/19 09:03 01/06/19 07:55 01/06/19 07:55 Oxygen Flow Rate (L/min) 4 Oxygen Delivery Method Nasal Cannula Weight: 242 lb 11.663 oz Body Mass Index (BMI) 33.8 Intake and Output for Last 24 Hours 01/04/19 01/05/19 01/06/19 23:59 23:59 23:59 Intake Total 1100 / 1100 1370 / 1370 70 / 70 Output Total 2325 / 2325 2076 / 2076 300 / 300 Balance -1225 / -1225 -706 / -706 -230 / -230 Microbiology Past 72 Hours 01/03/19 03:48 Blood Culture - Preliminary Blood Culture (Wb) #2 - Right Hand No growth in 48 hours. 01/03/19 02:40 Blood Culture - Preliminary Blood Culture (Wb) - Anticubital Right No growth in 48 hours. 01/03/19 09:33 Respiratory Panel (PCR) - Final Mucosa - Nasopharyngeal Influenza A (Subtype H1) POC Glucose 01/06/19 01/05/19 01/05/19 06:54 22:46 16:11 POC Glucose 155 H 163 H 151 H 01/05/19 11:09 POC Glucose 214 H Discharge Diet: 1800 Calorie Control Diet, Carb Control Diet Discharge Activity: Return to Normal Activity Home Medications: Medications to take at Discharge Aspirin [Aspirin, Baby] 81 mg PO DAILY@0800 10/04/14 Atorvastatin Calcium [Lipitor] 40 mg PO QHS 10/04/14 Clopidogrel Bisulfate [Plavix] 75 mg PO DAILY 10/04/14 Furosemide [Lasix] 40 mg PO BID 10/04/14 Multivitamins,Therapeutic [Multivitamin] 1 tab PO DAILY 10/04/14 Budesonide/Formoterol 160/4.5 [Symbicort 160/4.5 Mcg Inhaler (SP)] 2 puff INHALATION BID 02/24/15 Roflumilast [Daliresp] 500 mcg PO DAILY 02/24/15 Famotidine [Pepcid] 20 mg PO BID 08/01/15 Metformin HCl [Glucophage] 500 mg PO QHS 10/08/16 bupropion HCl 100 mg tablet 100 mg PO BID 10/25/17 Albuterol Aerosols [Ventolin Aerosols] 2.5 mg INHALATION Q2H PRN PRN #1 box 11/08/17 Oxygen, Home [Home Oxygen] 4 - 6 lpm NASAL CONT #1 11/08/17 albuterol sulfate HFA 90 mcg/actuation aerosol inhaler 2 puff INHALATION Q4H PRN g 11/11/17 tiotropium bromide 18 mcg capsule with inhalation device 1 cap INHALATION DAILY 11/11/17 Cholecalciferol (VIT D3) [Vitamin D3] 1,000 unit PO DAILY tab 02/13/18 ipratropium bromide 0.02 % solution for inhalation 0.5 mg INHALATION Q4H ml 05/01/18 metformin 500 mg tablet 750 mg PO BREAKFAST tab 07/19/18 prednisone 10 mg tablet 10 mg PO DAILY #30 tab 09/08/18 losartan 25 mg tablet 25 mg PO DAILY 09/14/18 Budesonide Aerosol [Pulmicort Respules] 0.5 mg INHALATION BID 10/14/18 Ferrous Sulfate 325 mg PO DAILY 10/14/18 metoprolol tartrate 25 mg tablet 25 mg PO BID #60 tab 12/08/18 azelastine 137 mcg (0.1 %) nasal spray aerosol 1 spray INTRANASAL BID #30 ml 12/19/18 clotrimazole 10 mg nitish 10 mg MUCOUS MEMBRANE TID #90 tab 12/19/18 Oseltamivir Phosphate [Tamiflu] 75 mg PO BID #3 capsule 01/06/19 Prednisone See Taper PO DAILY #30 tablet 01/06/19 Following Prescrptions Were Given to Patient: Prednisone See Taper PO DAILY #30 tablet Oseltamivir Phosphate [Tamiflu] 75 mg PO BID #3 capsule Primary Care Physician: Kenia Matthew MD [Primary Care Provider] - Please follow up with your Primary Care Physician in: 1 Week Please Follow Up With: Zac Mendez MD - Or Jesika Ortiz When: 2 Weeks Disposition: Home Minutes spent on discharge:: 35 Patient Condition:: Stable Medical Necessity - Tobacco Use Smoking Status: Former smoker Meaningful Use Info Meaningful Use Diagnoses (Choose all that apply): None applicable
[2019-01-06 11:01] LABS: Bedside Glucose 223 mg/dL (70-110)
[2019-01-06] MEDS: Ferrous Sulfate 325 MG Tablet PO (12:09)
--- NOTE | 2019-01-08 15:15 | CASEMGMT ---
ERIK GUTIERREZ Discharge F/U Phone Call LACGuera: 13 Strata: 4 Discharge date: 01/06/19 Call date: 01/08/19 Call time: 1515 Duration: 4 minutes Admission dx: Acute COPD exacerbation Pt states that he has been 'rough' since discharge d/t having diarrhea. Pt states he didn't have the diarrhea while here and this RN BRENDA advised pt to call PCP if worsens. Pt states he has f/u with PCP on 01/11 and plans to keep appt. Pt states no questions regarding discharge instructions/medications at this time. Pt states no suggestions for [facility] at this time and states 'don't change a thing because you are all great.' Pt voices no further questions/concerns/needs at this time. SStaten ERIK GUTIERREZ
== END 2019-01-06 13:28 | disposition home or self-care (01) | DRG 193 ==
LOC: ED 02:54 → PCU 05:34
PROVIDERS: Internal Medicine Critical Care Medicine; Nurse Practitioner Family; Physician Assistant; Admitting Provider Hospitalist; Emergency Provider Emergency Medicine; Family Provider Internal Medicine; PCP Internal Medicine; Visit Provider Internal Medicine
DX: J10.1 Influenza due to other identified influenza virus with other respiratory manifestations (principal); J96.22 Acute and chronic respiratory failure with hypercapnia; J96.21 Acute and chronic respiratory failure with hypoxia; J44.1 Chronic obstructive pulmonary disease with (acute) exacerbation; I50.32 Chronic diastolic (congestive) heart failure; Z99.81 Dependence on supplemental oxygen; E11.9 Type 2 diabetes mellitus without complications; F32.9 Major depressive disorder, single episode, unspecified; I11.0 Hypertensive heart disease with heart failure; E66.9 Obesity, unspecified; E78.5 Hyperlipidemia, unspecified; I25.10 Atherosclerotic heart disease of native coronary artery without angina pectoris; G47.33 Obstructive sleep apnea (adult) (pediatric); D50.9 Iron deficiency anemia, unspecified; Z79.52 Long term (current) use of systemic steroids; Z79.84 Long term (current) use of oral hypoglycemic drugs; Z95.5 Presence of coronary angioplasty implant and graft; Z68.33 Body mass index [BMI] 33.0-33.9, adult; I25.2 Old myocardial infarction; Z87.891 Personal history of nicotine dependence
CPT/HCPCS: 36415; 36600; 71045; 71275; 80048; 82803; 82962; 83605; 83880; 84484; 85025; 87040; 87633; 87804; 93005; 94002; 94003; 94640; 94762; 97802; 97803; 99251; 99285; J7030; J7040; J7050; Q9967; A4216; G0463

== ENCOUNTER 2019-05-15 12:19 | Emergency (ER) | payer MEDICARE, SELFPAY ==
[2019-03-30 10:56] VITALS: BMI 33.6
[2019-05-15 12:20] VITALS: BP 128/69; PULSE 98; RESP 19; TEMP 36.6; O2SAT 97; BMI 33.6
[2019-05-15 12:27] VITALS: O2SAT 97
--- NOTE | 2019-05-15 12:48 | EKG12_ITS ---
Test Reason : SOB Blood Pressure : / mmHG Vent. Rate : 101 BPM Atrial Rate : 101 BPM P-R Int : 134 ms QRS Dur : 086 ms QT Int : 324 ms P-R-T Axes : 076 069 072 degrees QTc Int : 420 ms Sinus tachycardia Otherwise normal ECG Confirmed by SANDY ESTES ([id number]), sound editor ANITA ALFARO ([id number]) on 05/16/2019 2:33:58 PM Referred By: PJ Confirmed By:SANDY ESTES
--- NOTE | 2019-05-15 12:48 | RAD_ITS ---
STUDY: X-RAY CHEST REASON FOR EXAM: Male, 58 years old. Shortness of breath and cough. TECHNIQUE: Single AP portable view of the chest. COMPARISON: Comparison is made with prior study dated January 03, 2019. FINDINGS: EKG electrodes are seen. Stable mild degree of increased markings at the lung bases with areas of confluence suggestive of scarring. Stable blunting of both costophrenic angles. Stable increased linear markings in the peripheral aspect of the right upper lobe suggestive of scarring. Hyperinflation. There is borderline cardiomegaly. Normal mediastinum and kim. Normal visualized pulmonary arteries. There is atherosclerotic tortuosity of the aortic arch and descending thoracic aorta. There are diffuse degenerative changes of the visualized thoracic spine. Normal visualized ribs, clavicles, and shoulders. There is no demonstrated abnormality of the visualized soft tissue structures of the upper abdomen. RAD/Chest 1 View (Portable) IMPRESSION: Hyperinflation. Findings suggest left stable scarring at the lung bases with blunting of both costophrenic angles. Electronically Signed: Sanchez Blood, at 13:29 EDT , Service support ,
[2019-05-15 13:04] VITALS: PULSE 102; RESP 20; O2SAT 98
[2019-05-15] MEDS: Albuterol 2.5 MG/3 ML VIAL.NEB. INHALATION ×2 (13:07→13:49)
[2019-05-15] MEDS: Ipratropium/Albuterol Sulfate 3 ML AMPUL.NEB INHALATION (13:07)
[2019-05-15] MEDS: MethylPREDNISolone 125 MG/2 ML Vial IV (13:07)
[2019-05-15 13:13] LABS: Absolute Lymphocyte Count 1.77 X10^3/uL (0.83-4.51); Absolute Neutrophil Count 9.6 X10^3/uL (2.0-7.7); Basophil# 0.06 X10^3/uL; Basophil% 0.5 % (0-1); Eosinophil# 0.28 X10^3/uL; Eosinophils% 2.2 % (0-5); Hematocrit 37.2 % (40-54); Hemoglobin 10.5 g/dL (13.0-16.5); Lymphocyte # 1.77 X10^3/ul (4.0); Lymphocyte % 13.7 % (19-41); Mean Corp Hgb Conc 28.2 g/dL (32-36); Mean Corpuscular Hgb 24.2 pg (27.0-32.0); Mean Corpuscular Volume 85.7 fL (80-94); Mean Platelet Vol. 8.6 fl (6.2-12.0); Monocyte# 1.15 X10^3/uL; Monocyte% 8.9 % (0-10); NRBC Flagged by Analyzer 0 % (0-5); Neutrophil # 9.57 X10^3/uL (2.7-7.7); Neutrophil % 73.9 % (47-70); Platelet Count 393 K/mm3 (150-450); RBC Distribution Width CV 14.6 % (11.6-14.6); RBC Distribution Width SD 45.4 fl (35.1-43.9); Red Blood Count 4.34 M/mm3 (4.6-6.2); White Blood Count 12.9 K/mm3 (4.4-11.0)
[2019-05-15 13:29] LABS: Anion Gap 2 (5-15); BUN 13 mg/dL (7-18); BUN/Creat Ratio 13.5 RATIO (10-20); Calcium,Total 9.3 mg/dL (8.5-10.1); Chloride 100 mmol/L (98-107); Creatinine, Serum 0.96 mg/dL (0.70-1.30); EST Glomerular Filtration Rate 85 mL/min (>60); Est Glom Filt Rate - Afr Amer 103 mL/min (>60); Estimated Creatinine Clearance 88.24 ml/min; Glucose 126 mg/dL (74-106); Potassium 3.5 mmol/L (3.5-5.1); Sodium Level 142 mmol/L (136-145)
[2019-05-15 13:39] VITALS: O2SAT 97
[2019-05-15 13:42] LABS: BNP,B-Type NATRIURETIC PEPTIDE 48.6 pg/mL (0-100)
--- NOTE | 2019-05-15 15:11 | ED.DCSUM_ITS ---
- ER Visit Summary Date of Service: 05/15/19 Chief Complaint: Shortness of breath History of Present Illness: The patient is a 58 M with shortness of breath that started yesterday. It came on gradually. Associate with a headache. He has a history of COPD and uses home oxygen, 4.5 L. He is not currently on antibiotics, but is taking 10 mg of prednisone daily. He has a history of heart disease and is compliant with his aspirin and Plavix. He is denying any chest pain. Denies any fevers. Denies any history of PE. He does have a history of heart failure. Physical Examination: Afebrile and vital signs unremarkable. 97% on nasal cannula. Patient is recumbent and in no acute distress. HEENT exam unremarkable. Heart regular. Lungs show wheezing and diminished breath sounds throughout all santiago. Abdomen soft. Extremities nontender with symmetric edema. Skin is normal in color. Test Results: EKG shows sinus rhythm at a rate of 101. White count 12.9 and hematoma 10.5. CO2 40, anion gap 2, glucose 126, troponin normal, BNP normal. Chest x-ray shows chronic changes, stable. Emergency Department Course and Treatment: Patient received nebulizer treatments as well as Solu-Medrol. His symptoms improved greatly. His vitals remained unremarkable. Good oxygenation on nasal cannula. His work-up was unremarkable. I believe this is from his COPD. He was covered with doxycycline and advised to follow-up as an outpatient. He should return for any new or worsening issues. Treatment Plan: As above Disposition: Discharged Impression: 1. COPD exacerbation This note was generated with [employer] dictation software. It may contain incorrect words, spelling, and punctuation that were not noted in review of the chart prior to signing ED Disposition - Plan for ED Patient: Referrals: Kenia Matthew MD [Primary Care Provider] -
--- NOTE | 2019-05-15 15:13 | ED.DEP ---
ED Disposition - Plan for ED Patient: Instructions: Copd Flare Prescriptions: Doxycycline 100 mg PO BID #20 cap Prescription Printed Prednisone 40 mg PO DAILY 4 Days #16 tab Prescription Printed Referrals: Kenia Matthew MD [Primary Care Provider] -
[2019-05-15 15:23] VITALS: BP 121/80; PULSE 104; RESP 22; O2SAT 98
[2019-05-15] MEDS: Doxycycline 100 MG CAPSULE PO (15:24)
[2019-05-15 15:25] VITALS: BP 121/80; PULSE 105; RESP 20; O2SAT 97
== END 2019-05-15 16:08 | disposition home or self-care (01) ==
LOC: ED 13:22
PROVIDERS: Emergency Provider Emergency Medicine; Family Provider Internal Medicine; PCP Internal Medicine
DX: J44.1 Chronic obstructive pulmonary disease with (acute) exacerbation (principal); I50.9 Heart failure, unspecified; I25.2 Old myocardial infarction; Z99.81 Dependence on supplemental oxygen; Z79.02 Long term (current) use of antithrombotics/antiplatelets; Z79.82 Long term (current) use of aspirin; Z79.899 Other long term (current) drug therapy; Z87.891 Personal history of nicotine dependence
CPT/HCPCS: 71045; 80048; 83880; 84484; 85025; 93005; 94640; 96374; 99285; A4216

== ENCOUNTER 2019-07-19 05:49 | Emergency (ER) | payer MEDICARE, MEDICAID, SELFPAY ==
[2019-06-25 08:43] VITALS: BMI 33.6
[2019-07-19] VITALS (8 sets, daily range): BP systolic 109–143; BP diastolic 72–75; PULSE 106–125; RESP 12–32; TEMP 36.2–36.9; O2SAT 93–96; BMI 32.5
--- NOTE | 2019-07-19 05:54 | EKG12_ITS ---
Test Reason : SOB Blood Pressure : / mmHG Vent. Rate : 112 BPM Atrial Rate : 112 BPM P-R Int : 118 ms QRS Dur : 086 ms QT Int : 304 ms P-R-T Axes : 073 059 039 degrees QTc Int : 414 ms Sinus tachycardia with Premature atrial complexes Otherwise normal ECG Confirmed by PENELOPE ROTHMAN, KERVIN ([id number]), senior editor VEE ALEXANDRA ([id number]) on 07/25/2019 9:16:56 AM Referred By: ALEXANDRA Confirmed By:VALERY NEGRETE MD
--- NOTE | 2019-07-19 05:54 | RAD_ITS ---
STUDY: X-RAY CHEST REASON FOR EXAM: Male, 58 years old. Short of breath TECHNIQUE: Portable chest COMPARISON: 05/15/2019 FINDINGS: There are stable diffuse COPD changes. There is stable right upper lobe scarring. Evaluation of the left upper lobe is limited due to overlying tubing. There is mild left upper lobe opacity. There is bibasilar scarring. There is right lower lobe bulla. There is mild blunting of the costophrenic angles unchanged. Normal size heart. Normal mediastinum and kim. Normal visualized pulmonary arteries. Normal visualized aortic arch and descending thoracic aorta. Normal visualized thoracic spine. Normal visualized ribs, clavicles, and shoulders. There is no demonstrated abnormality of the visualized soft tissue structures of the upper abdomen. RAD/Chest 1 View (Portable) IMPRESSION: Stable significant diffuse COPD changes Stable bilateral pulmonary scarring Mild left upper lobe pulmonary opacity Likely small pleural effusions unchanged Electronically Signed: Volodymyr Reed, at 7:13 EDT Tel , Service support ,
--- NOTE | 2019-07-19 05:57 | ED.VIS.GEN ---
History of Present Illness Chief Complaint: Shortness of Breath Informant: Patient Onset: Yesterday Narrative: History COPD, chronic 4 L of oxygen presents with breath since yesterday. Reports increasing cough with sputum. Chest pains due to dyspnea. No fevers. Remote tobacco history. Reports history of sleep apnea sleeps with trilogy machine. No vomiting or diarrhea. History of coronary disease and one stent in the past. He is on aspirin therapy. Patient reports increasing oxygen demand since yesterday. EMS contacted status post DuoNeb treatment, brought in on 6 L of oxygen. Reports last admission 3 to 4 months ago. Denies any history of PE or DVT, no recent travel, surgeries, or immobilizations. Prior similar symptoms: Yes Past Medical History - Allergies and Home Meds Allergies/Adverse Reactions: Allergies diazepam [From Valium] Adverse Reaction (Verified 07/19/19 05:57) Vomiting Primary Care Physician: Kenia Matthew MD [Primary Care Provider] - Surgical History: - - Rotator cuff surgery Smoking Status: Former smoker - Family History Maternal Family History: Family History (Last Reviewed 06/25/19 @ 09:00 by TEVIN Mattson) Mother Diabetes Father Heart disease CVA (cerebral vascular accident) Brother Diabetes Asthma Family History: Reports: Clotting Disorder - Mother with history of PE following an ankle surgery Paternal Family History: Family History (Last Reviewed 06/25/19 @ 09:00 by TEVIN Mattson) Mother Diabetes Father Heart disease CVA (cerebral vascular accident) Brother Diabetes Asthma Family History: Reports: Heart Disease Review of Systems General: Denies: Chills, Fever, Sweats Eyes: Denies: Visual changes - bilaterally, Diplopia ENT: Denies: Rhinorrhea, Sore throat Cardiovascular: Reports: Chest pain. Denies: Palpitations Respiratory: Reports: Dyspnea, Cough, Sputum. Denies: Dyspnea on exertion Gastrointestinal: Denies: Abdominal pain, Nausea, Vomiting, Diarrhea, Melena, Hematochezia Genitourinary: Denies: Dysuria, Hematuria, Frequency Musculoskeletal: Denies: Back pain, Extremity Pain Skin: Denies: Rash, Wounds Neurological: Denies: Headache, Weakness, Numbness Physical Exam Vital Signs/Narrative: Vital Signs Temp Pulse Resp BP Pulse Ox 07/19/19 05:51 97.1 F L 125 H 27 H 143/75 H 95 Inital Vital Signs reviewed: Yes General: Well nourished, Well developed, - - Speaking in short sentences, with mild accessory muscle use. Head: Normocephalic, Atraumatic ENT: Moist mucous membranes, - - Bilateral rhinorrhea. Cardiovascular: Regular rhythm, Tachycardia Respiratory: Diminished, Decreased Air Movement Abdomen: Soft, Nontender, Normal bowel sounds Skin: Normal color, No rash Neurological: Alert, Oriented x3 Psychological: Normal affect, Normal Mood Diagnostic/Tx/Re-eval Chest X-Ray - ED: 1 View, Read by ED Physician, Chronic Changes Abnormal Lab Results 07/19/19 07/19/19 07/19/19 06:00 06:00 06:00 WBC 11.2 H RBC 4.45 L Hgb 9.7 L Hct 34.5 L MCV 77.5 L MCH 21.8 L MCHC 28.1 L RDW Std Deviation 44.1 H RDW Coeff of Asael 15.8 H Plt Count 426 MPV 8.9 Immature Gran % (Auto) 0.700 Neut % (Auto) 66.9 Lymph % (Auto) 16.9 L [place] % (Auto) 14.6 H Eos % (Auto) 0.5 Baso % (Auto) 0.4 Absolute Neuts (auto) 7.5 Absolute Lymphs (auto) 1.90 Nucleated RBC % 0 Diff Path Review February foll PT 13.6 INR 1.1 APTT 28.4 Specimen Type Sample Site pH Bicarbonate Actual POC Total CO2 Base Excess O2 Saturation ABG pCO2 ABG pO2 Paco Test O2 Delivery Device Liter Flow Blood Gas Notified Whom Blood Gas Notified Time Sodium 139 Potassium 3.6 Chloride 100 Carbon Dioxide 36.0 H Anion Gap 3 L BUN 18 Creatinine 1.42 H Estim Creat Clear Calc 59.66 Est GFR (MDRD) Af Amer 65 Est GFR (MDRD) Non-Af 54 L BUN/Creatinine Ratio 12.7 Glucose 116 H Lactic Acid Calcium 9.4 Total Bilirubin 0.40 AST 12 L ALT 20 Alkaline Phosphatase 118 H Troponin I < 0.015 Total Protein 7.5 Albumin 3.6 Globulin 3.9 Albumin/Globulin Ratio 0.9 Urine Color Urine Clarity Urine pH Ur Specific Mitchell Urine Protein Urine Glucose (UA) Urine Ketones Urine Occult Blood Urine Nitrite Urine Bilirubin Urine Urobilinogen Ur Leukocyte Esterase Urine RBC Urine WBC Ur Squamous Epith Cells Urine Bacteria Urine Mucus 07/19/19 07/19/19 07/19/19 06:00 06:20 06:30 WBC RBC Hgb Hct MCV MCH MCHC RDW Std Deviation RDW Coeff of Asael Plt Count MPV Immature Gran % (Auto) Neut % (Auto) Lymph % (Auto) [place] % (Auto) Eos % (Auto) Baso % (Auto) Absolute Neuts (auto) Absolute Lymphs (auto) Nucleated RBC % Diff Path Review PT INR APTT Specimen Type ART Sample Site R Radial pH 7.43 Bicarbonate Actual 33.8 H POC Total CO2 35 Base Excess 9 H O2 Saturation 97 ABG pCO2 51.3 H ABG pO2 90 Paco Test POS O2 Delivery Device Nasal Can Liter Flow 3.0 Blood Gas Notified Whom ED MD Blood Gas Notified Time 615 Sodium Potassium Chloride Carbon Dioxide Anion Gap BUN Creatinine Estim Creat Clear Calc Est GFR (MDRD) Af Amer Est GFR (MDRD) Non-Af BUN/Creatinine Ratio Glucose Lactic Acid 1.1 Calcium Total Bilirubin AST ALT Alkaline Phosphatase Troponin I Total Protein Albumin Globulin Albumin/Globulin Ratio Urine Color Yellow Urine Clarity Clear Urine pH 6.5 Ur Specific Mitchell 1.020 Urine Protein 30 H Urine Glucose (UA) Normal Urine Ketones 5 H Urine Occult Blood 150 H Urine Nitrite Negative Urine Bilirubin Negative Urine Urobilinogen Normal Ur Leukocyte Esterase Negative Urine RBC 5-10 SEEN Urine WBC 0-5 SEEN Ur Squamous Epith Cells 0 SEEN Urine Bacteria 0 SEEN Urine Mucus 1+ Clinical Impression(s) from Imaging Studies Chest X-Ray 07/19/19 05:54 IMPRESSION: Stable significant diffuse COPD changes Stable bilateral pulmonary scarring Mild left upper lobe pulmonary opacity Likely small pleural effusions unchanged Electronically Signed: Volodymyr Derek, at 7:13 EDT Tel , Service support , - Medical Decision Making Patient on 6 L on arrival mid 90s. Short sentences. Blood gas was obtained and placed on BiPAP due to tachypnea and accessory muscle use. Gas was stable. Chest x-ray was negative. He was given Solu-Medrol 60 mg due to his history of diabetes. EKG is sinus tachycardia. Sepsis labs obtained due to his tachycardia and tachypnea.Labs stable noted chronic anemia. Troponin negative. Started on doxycycline for COPD exacerbation. Reevaluation symptoms much more improved, will try to wean him off the BiPAP onto his nasal cannula. Discussed with hospitalist Dr. Arce for admission to PCU. ED Disposition - Plan for ED Patient: Disposition: Acute Care Hospital [facility] Diagnosis: COPD exacerbation Referrals: Kenia Matthew MD [Primary Care Provider] -
[2019-07-19 06:20] LABS: Absolute Neutrophil Count 7.5 X10^3/uL (2.0-7.7); Basophil# 0.05 X10^3/uL; Basophil% 0.4 % (0-1); Eosinophil# 0.06 X10^3/uL; Eosinophils% 0.5 % (0-5); Hematocrit 34.5 % (40-54); Hemoglobin 9.7 g/dL (13.0-16.5); Lymphocyte % 16.9 % (19-41); Mean Corp Hgb Conc 28.1 g/dL (32-36); Mean Corpuscular Hgb 21.8 pg (27.0-32.0); Mean Corpuscular Volume 77.5 fL (80-94); Mean Platelet Vol. 8.9 fl (6.2-12.0); Monocyte# 1.64 X10^3/uL; Monocyte% 14.6 % (0-10); NRBC Flagged by Analyzer 0 % (0-5); Neutrophil # 7.49 X10^3/uL (2.7-7.7); Neutrophil % 66.9 % (47-70); POSITIVE DIFFERENTIAL YES; Platelet Count 426 K/mm3 (150-450); RBC Distribution Width CV 15.8 % (11.6-14.6); RBC Distribution Width SD 44.1 fl (35.1-43.9); Red Blood Count 4.45 M/mm3 (4.6-6.2); White Blood Count 11.2 K/mm3 (4.4-11.0)
[2019-07-19 06:26] LABS: Differential Indicated SCAN CRITERIA MET
[2019-07-19 06:26] LABS: Allen Test POS; Base Excess 9 mmol/L (-2 to +2); Bicarbonate 33.8 mmol/L (22-26); Blood Gas Specimen Type ART; O2 Delivery Device Nasal Can; PO2 90 mmHG (75-100); SITE R Radial; SO2 97 % (95-99); Time Given 615; Total Carbon Dioxide 35 mmol/L; pCO2 51.3 mmHg (35-45); pH 7.43 (7.35-7.45)
[2019-07-19 06:29] LABS: International Normalized Ratio 1.1; Prothrombin Time (Protime)PT. 13.6 SECONDS (11.7-14.9)
[2019-07-19 06:30] LABS: Partial Thromboplast Time 28.4 Seconds (24.1-36.2)
[2019-07-19] MEDS: MethylPREDNISolone 125 MG/2 ML Vial 60 MG IV (06:30)
[2019-07-19 06:36] LABS: Bacteria 0 SEEN /hpf (None Seen); Squamous Epithelial Cells - UA 0 SEEN /hpf (0-5)
[2019-07-19 06:44] LABS: Lactic Acid 1.1 mmol/L (0.4-2.0)
[2019-07-19 06:51] LABS: Color, Urine Yellow (Yellow); Glucose, Dipstick Normal (Normal); Ketone-Dipstick 5 mg/dl (Negative); Leukocyte Esterase-Dipstick Negative /ul (Negative); Nitrite-Dipstick Negative (Negative); Occult Blood-Urine 150 /ul (Negative); Protein-Dipstick 30 mg/dl (Negative); Urine Bilirubin Dipstick Negative (Negative); Urine Clarity Clear (Clear); Urine Urobilinogen Normal (Normal); Urine pH 6.5 (5.0 - 8.0)
[2019-07-19 06:52] LABS: Mucous, Urine 1+ /hpf (<or=2+); Red Blood Cells-Urine 5-10 SEEN /hpf (0-5); White Blood Cells 0-5 SEEN /hpf (0-5)
[2019-07-19 07:02] LABS: ALB/GLOB Ratio 0.9 RATIO (0.9-2.4); AST(SGOT) 12 U/L (15-37); Alanine Aminotransfer ALT/SGPT 20 U/L (16-61); Albumin, Serum 3.6 g/dL (3.2-5.0); Alkaline Phosphatase 118 U/L (45-117); Anion Gap 3 (5-15); BUN 18 mg/dL (7-18); BUN/Creat Ratio 12.7 RATIO (10-20); Calcium,Total 9.4 mg/dL (8.5-10.1); Chloride 100 mmol/L (98-107); Creatinine, Serum 1.42 mg/dL (0.70-1.30); EST Glomerular Filtration Rate 54 mL/min (>60); Est Glom Filt Rate - Afr Amer 65 mL/min (>60); Estimated Creatinine Clearance 59.66 ml/min; Globulin 3.9 g/dL (2.2-4.2); Glucose 116 mg/dL (74-106); Potassium 3.6 mmol/L (3.5-5.1); Protein, Total 7.5 g/dL (6.4-8.2); Sodium Level 139 mmol/L (136-145)
--- NOTE | 2019-07-19 07:28 | NURSING ---
111 OBS COPD EXAC SEMENTI
--- NOTE | 2019-07-19 07:53 | ED.VIS.GEN ---
History of Present Illness Chief Complaint: Shortness of Breath Informant: Patient Past Medical History - Allergies and Home Meds Allergies/Adverse Reactions: Allergies diazepam [From Valium] Adverse Reaction (Verified 07/19/19 05:57) Vomiting Primary Care Physician: Kenia Matthew MD [Primary Care Provider] - Surgical History: - - Rotator cuff surgery Smoking Status: Former smoker - Family History Maternal Family History: Family History (Last Reviewed 06/25/19 @ 09:00 by TEVIN Mattson) Mother Diabetes Father Heart disease CVA (cerebral vascular accident) Brother Diabetes Asthma Family History: Reports: Clotting Disorder - Mother with history of PE following an ankle surgery Paternal Family History: Family History (Last Reviewed 06/25/19 @ 09:00 by TEVIN Mattson) Mother Diabetes Father Heart disease CVA (cerebral vascular accident) Brother Diabetes Asthma Family History: Reports: Heart Disease Physical Exam Vital Signs/Narrative: Vital Signs Temp Pulse Resp BP Pulse Ox 07/19/19 07:26 98.5 F 106 H 24 H 109/73 94 07/19/19 07:25 98.5 F 107 H 23 H 109/73 93 07/19/19 06:31 97.1 F L 111 H 14 114/72 95 07/19/19 06:21 122 H 14 114/72 07/19/19 06:20 117 H 32 H 07/19/19 05:57 95 07/19/19 05:51 97.1 F L 125 H 27 H 143/75 H 95 Diagnostic/Tx/Re-eval - Medical Decision Making After discussed with hospitalist for admission, patient was able to be weaned off the BiPAP. He stable on his home oxygen settings. He still slightly tachycardic. He reported to nursing that he did not want to stay in the hospital after agreeing initially. Reevaluate the patient myself he continues to want to go home. He is alert and oriented x3, is capable of making decisions. Significant other was in the room. Discussed possibility of worsening symptoms that can lead to cardiopulmonary arrest. Patient understands. Patient signed out AGAINST MEDICAL ADVICE. Discussed with patient can return anytime for reevaluation. He is willing to stay for his IV antibiotics. He is written for steroids and antibiotics for home. ED Disposition - Plan for ED Patient: Disposition: Against Medical Advice Diagnosis: COPD exacerbation Instructions: Copd Flare Prescriptions: Prednisone [Deltasone] 60 mg PO DAILY #12 tablet Doxycycline 100 mg PO BID #20 capsule Referrals: Kenia Matthew MD [Primary Care Provider] - 1 Day Additional Instructions: You signed out AGAINST MEDICAL ADVICE. Take your prescription medications as prescribed. Follow-up with your PCP in 1 day. You may return anytime for reevaluation.
[2019-07-19 12:32] LABS: Pathologist Review Reviewed
== END 2019-07-19 09:39 | disposition left against medical advice (07) ==
PROVIDERS: Emergency Provider Emergency Medicine; Family Provider Internal Medicine; PCP Internal Medicine
DX: J44.1 Chronic obstructive pulmonary disease with (acute) exacerbation (principal); Z87.891 Personal history of nicotine dependence; G47.30 Sleep apnea, unspecified; I25.10 Atherosclerotic heart disease of native coronary artery without angina pectoris; Z95.5 Presence of coronary angioplasty implant and graft; Z79.82 Long term (current) use of aspirin; Z79.899 Other long term (current) drug therapy
CPT/HCPCS: 36600; 71045; 80053; 81001; 82803; 83605; 84484; 85025; 85610; 85730; 87040; 87070; 87077; 87086; 87088; 87186; 87205; 93005; 94002; 96365; 96374; 99285; A4216

== ENCOUNTER 2019-07-20 22:27 | Inpatient (IN) | payer MEDICARE, MEDICAID, SELFPAY ==
[2019-07-19 05:51] VITALS: BMI 32.5
[2019-07-20] VITALS (8 sets, daily range): BP systolic 100–147; BP diastolic 48–104; PULSE 104–135; RESP 13–37; TEMP 37.2–38.5; O2SAT 92–100; BMI 34.1
--- NOTE | 2019-07-20 22:29 | EKG12_ITS ---
Test Reason : DYSRHYTHMIA Blood Pressure : / mmHG Vent. Rate : 121 BPM Atrial Rate : 121 BPM P-R Int : 118 ms QRS Dur : 084 ms QT Int : 300 ms P-R-T Axes : 071 055 046 degrees QTc Int : 426 ms Sinus tachycardia Otherwise normal ECG Confirmed by PENELOPE ROTHMAN, KERVIN ([id number]), photograph editor VEE ALEXANDRA ([id number]) on 07/25/2019 9:40:45 AM Referred By: JULIA Confirmed By:VALERY NEGRETE MD
--- NOTE | 2019-07-20 22:29 | RAD_ITS ---
STUDY: X-RAY CHEST REASON FOR EXAM: Male, 58 years old. Intubation TECHNIQUE: Single AP portable view of the chest. COMPARISON: Prior study of earlier this date FINDINGS: manager monitoring leads are present. Endotracheal tube is present with the tip approximately 3.4 cm proximal to the timothy. There is a nasogastric tube with tip projecting over the level of the distal esophagus. There is a limited inspiration. There is a small left-sided effusion. There is mild cardiac enlargement. Normal mediastinum and kim. Normal visualized pulmonary arteries. Normal visualized aortic arch and descending thoracic aorta. Normal visualized thoracic spine. Normal visualized ribs, clavicles, and shoulders. There is no demonstrated abnormality of the visualized soft tissue structures of the upper abdomen. RAD/Chest 1 View (Portable) IMPRESSION: Limited inspiration. Endotracheal tube seen with tip approximately 3.4 cm proximal to the timothy. There is a small left-sided effusion. There is mild cardiomegaly. A nasogastric tube is present with tip projecting over the distal esophagus. Electronically Signed: Del Dale MD at 23:37 EDT , Service support ,
--- NOTE | 2019-07-20 22:40 | ED.DCSUM_ITS ---
History of Present Illness Chief Complaint: Shortness of Breath Detail of Chief Complaint: Respiratory distress per EMS Informant: Yarder Limited by: Stupor Onset: Today Context: Sudden Onset Timing: Continuous Quality: Respiratory distress Location: Home Current Severity: Severe Maximum Severity: Severe Worsened by: Patient left hospital AMA yesterday Relieved by: Nothing Associated Symptoms: Unknown Narrative: Patient is a 58-year-old male with multiple medical problems including COPD who arrived by ambulance. He is obtunded in spite of use of CPAP. There is no history that I am able to obtain from patient. Prior similar symptoms: Yes Recent Illness/Hospitalization: Yes - Past Medical History (1) Tobacco abuse Status: Chronic (2) Stage 4 very severe COPD by GOLD classification Status: Chronic Comment: FEV1 20% of predicted (3) CAD (coronary artery disease) Status: Chronic (4) Old myocardial infarction Status: Chronic (5) Type 2 diabetes mellitus Status: Chronic (6) Congestive heart failure Status: Chronic (7) MICHELLE (obstructive sleep apnea) Status: Chronic Comment: Trilogy with 2 LPM oxygen bleed (8) Anxiety Status: Acute (9) Presence of stent in coronary artery Status: Chronic Comment: [facility] w/stenting to prox RCA (10) Hypertension Status: Chronic (11) Hyperlipidemia Status: Chronic Past Medical History - Allergies and Home Meds Allergies/Adverse Reactions: Allergies diazepam [From Valium] Adverse Reaction (Verified 07/20/19 22:32) Vomiting Primary Care Physician: Kenia Matthew MD [Primary Care Provider] - Prior records reviewed: Yes Surgical History: - - Rotator cuff surgery Lives: Spouse/ Significant Other Smoking Status: Former smoker Alcohol: None Drugs: None - Family History Maternal Family History: Family History (Last Reviewed 06/25/19 @ 09:00 by TEVIN Mattson) Mother Diabetes Father Heart disease CVA (cerebral vascular accident) Brother Diabetes Asthma Family History: Reports: Clotting Disorder - Mother with history of PE following an ankle surgery Paternal Family History: Family History (Last Reviewed 06/25/19 @ 09:00 by TEVIN Mattson) Mother Diabetes Father Heart disease CVA (cerebral vascular accident) Brother Diabetes Asthma Family History: Reports: Heart Disease Review of Systems ROS: Unable to Obtain - Patient obtunded Physical Exam Vital Signs/Narrative: Vital Signs Temp Pulse Resp Pulse Ox 07/20/19 22:28 98.9 F 135 H 37 H 92 Inital Vital Signs reviewed: Yes General: Well nourished, Well developed, Obese, Unkempt Head: Normocephalic, Atraumatic Eyes: Perrl, EOMI. Negative for: Pale conjunctiva, Scleral icterus ENT: Moist mucous membranes, No rhinorrhea Neck: Supple, Nontender, No lymphadenopathy. Negative for: No JVD Cardiovascular: Regular rhythm, No murmurs, Normal S1, Tachycardia Respiratory: Wheezing, Diminished, Decreased Air Movement, Retractions Abdomen: Soft, No masses, Hypoactive bowel sounds, - - Patient does not grimace when his abdomen is pushed on.. Negative for: Nondistended, Normal bowel sounds Rectal: Deferred Back: Normal Inspection Extremities: Nontender, Edema - 1+ pitting Skin: Normal color, No rash, Diaphoresis, No Trauma. Negative for: Cyanosis, Jaundice Neurological: Cranial nerves II-XII grossly intact, Normal Strength, Normal Sensation, Normal DTR. Negative for: Alert, Oriented x3, Normal Gait Psychological: - - Unable to determine Diagnostic/Tx/Re-eval Chest X-Ray - ED: 1 View - Critical care time 37 minutes, Read by ED Physician, Normal, Bony Structures, - - Borderline cardiomegaly. Chest x-ray reveals bilateral interstitial infiltrates in light of temperature 101.2 and history by of productive green sputum. Impressions Chest X-Ray 07/20/19 22:29 IMPRESSION: Limited inspiration. Endotracheal tube seen with tip approximately 3.4 cm proximal to the timothy. There is a small left-sided effusion. There is mild cardiomegaly. A nasogastric tube is present with tip projecting over the distal esophagus. Electronically Signed: Del Dale MD at 23:37 EDT , Service support , KUB X-Ray 07/20/19 23:10 IMPRESSION: Enteric tube in stomach. ET tube at the timothy and should be withdrawn 2 cm. Electronically Signed: Jerod Payne MD at 23:36 EDT , Service support , 07/20/19 22:29 Chest 1 View (Portable) [RAD] Stat 07/20/19 23:10 Abdomen Single View (Portable) [RAD] Stat Laboratory Results 07/20/19 07/20/19 07/20/19 23:00 23:00 23:00 WBC 19.9 H RBC 4.71 Hgb 10.0 L Hct 37.5 L MCV 79.6 L MCH 21.2 L MCHC 26.7 L RDW Std Deviation 45.7 H RDW Coeff of Asael 16.0 H Plt Count 556 H MPV 9.5 Immature Gran % (Auto) 1.000 H Neut % (Auto) 70.9 H Lymph % (Auto) 14.0 L [place] % (Auto) 13.8 H Eos % (Auto) 0.0 Baso % (Auto) 0.3 Absolute Neuts (auto) 14.2 H Absolute Lymphs (auto) 2.78 Nucleated RBC % 0 Diff Path Review May foll PT 12.9 INR 1.0 APTT 25.1 Sodium 141 Potassium 4.7 Chloride 101 Carbon Dioxide 38.0 H Anion Gap 2 L BUN 21 H Creatinine 1.34 H Estim Creat Clear Calc 61.29 Est GFR (MDRD) Af Amer 70 Est GFR (MDRD) Non-Af 58 L BUN/Creatinine Ratio 15.7 Glucose 187 H Lactic Acid Calcium 8.9 Total Bilirubin 0.20 AST 22 ALT 26 Alkaline Phosphatase 111 Troponin I < 0.015 Total Protein 8.2 Albumin 3.8 Globulin 4.4 H Albumin/Globulin Ratio 0.9 07/20/19 23:40 WBC RBC Hgb Hct MCV MCH MCHC RDW Std Deviation RDW Coeff of Asael Plt Count MPV Immature Gran % (Auto) Neut % (Auto) Lymph % (Auto) [place] % (Auto) Eos % (Auto) Baso % (Auto) Absolute Neuts (auto) Absolute Lymphs (auto) Nucleated RBC % Diff Path Review PT INR APTT Sodium Potassium Chloride Carbon Dioxide Anion Gap BUN Creatinine Estim Creat Clear Calc Est GFR (MDRD) Af Amer Est GFR (MDRD) Non-Af BUN/Creatinine Ratio Glucose Lactic Acid 1.4 Calcium Total Bilirubin AST ALT Alkaline Phosphatase Troponin I Total Protein Albumin Globulin Albumin/Globulin Ratio Elevated white count, green-colored sputum and respiratory failure will treat for pneumonia. My interpretation is different than the radiologist. - EKG Initial EKG Interpretation: Sinus Tachycardia - Sinus tachycardia with a ventricular rate of 121. ID interval is 118 ms. QS duration 84 ms. QT duration 300 ms. [place] is normal. The EKG other than sinus tachycardia is normal. - Medical Decision Making Patient middle-age male with multiple medical problems who presents in respiratory distress. He arrived by ambulance. CPAP was initiated. With history of COPD and wheezing heard throughout with diminished breath sounds he was treated with DuoNeb and albuterol after his airway was secured. He required intubation because he was obtunded. Chest x-ray was obtained to assess for congestive heart failure versus COPD versus pneumonia. Also need to consider pneumothorax. Troponin was obtained to evaluate for cardiac ischemia since he does have history of coronary disease. Rashid was placed for accurate I's and O's. Appropriate blood work was obtained to assess white count, H&H, CO2/anion gap, renal function as well as electrolytes. Had a sniffing drop in blood pressure. This occurred after he received 80 mg of propofol and 100 mg of fentanyl IV push. He responded to fluid bolus. If lactate is greater than 4 will treat with 30 cc/kg. Since he has bilateral interstitial pneumonia will administer 1 g of Rocephin and 500 mg azithromycin. - Critical Care Time Critical care time (excluding procedures): 30-74 minutes, Discussing w/Patient &/or Family/Retail Sales Manager, Discussing w/Consultants, Arranging Admission or Transfer, Performing Direct Patient Care at Bedside Procedures Procedure(s): And was intubated with an 8.0 endotracheal tube using RSI technique. [place] scope was used. 8.0 endotracheal tube was placed without difficulty on first pass. The tube was visualized going through the vocal cords. Breath sounds are noted bilaterally. There is appropriate color change on capnometer. Rashid and NG placed per nursing staff. ED Disposition - Plan for ED Patient: Disposition: Acute Care Hospital [facility] Diagnosis: Acute interstitial pneumonia, Severe sepsis, COPD exacerbation, Bronchospasm, acute, Respiratory failure with hypoxia and hypercapnia, Hyperglycemia due to type 2 diabetes mellitus, Sinus tachycardia by electrocardiogram Referrals: Kenia Matthew MD [Primary Care Provider] -
--- NOTE | 2019-07-20 22:47 | ED.RN ---
medical hx pulled from prior visits. unable to complete all of required santiago due to intubation. attempting to locate pt next of kin per hospital records. robert sterling rn [id number]
[2019-07-20] MEDS: Etomidate 20 MG/10 ML Vial 30 MG IV (22:50)
[2019-07-20] MEDS: Propofol 10MG/Ml 1,000 MG/100 ML Bottle 6.5 MG CONT INF (22:51)
[2019-07-20] MEDS: Succinylcholine Chloride 200 MG/10 ML Vial 100 MG IV (22:52)
[2019-07-20] MEDS: Ondansetron 4 MG/2 ML Vial IV (23:01)
[2019-07-20] MEDS: MethylPREDNISolone 125 MG/2 ML Vial IV (23:01)
[2019-07-20] MEDS: fentaNYL 100 MCG/2 ML Ampul IV (23:01)
[2019-07-20] MEDS: Propofol 200 MG/20 ML Vial 80 MG IV BOLUS (23:02)
[2019-07-20] MEDS: Ipratropium/Albuterol Sulfate 3 ML AMPUL.NEB INHALATION (23:06)
[2019-07-20 23:08] LABS: Absolute Lymphocyte Count 2.78 X10^3/uL (0.83-4.51); Absolute Neutrophil Count 14.2 X10^3/uL (2.0-7.7); Basophil# 0.05 X10^3/uL; Basophil% 0.3 % (0-1); Hematocrit 37.5 % (40-54); Lymphocyte # 2.78 X10^3/ul (4.0); Mean Corp Hgb Conc 26.7 g/dL (32-36); Mean Corpuscular Hgb 21.2 pg (27.0-32.0); Mean Corpuscular Volume 79.6 fL (80-94); Mean Platelet Vol. 9.5 fl (6.2-12.0); Monocyte# 2.74 X10^3/uL; Monocyte% 13.8 % (0-10); NRBC Flagged by Analyzer 0 % (0-5); Neutrophil # 14.15 X10^3/uL (2.7-7.7); Neutrophil % 70.9 % (47-70); POSITIVE DIFFERENTIAL YES; Platelet Count 556 K/mm3 (150-450); RBC Distribution Width SD 45.7 fl (35.1-43.9); Red Blood Count 4.71 M/mm3 (4.6-6.2); White Blood Count 19.9 K/mm3 (4.4-11.0)
--- NOTE | 2019-07-20 23:10 | RAD_ITS ---
STUDY: X-RAY - ABDOMEN/PELVIS REASON FOR EXAM: Male, 58 years old. NG tube placement TECHNIQUE: Single AP view of the abdomen / pelvis. COMPARISON: None. FINDINGS: Enteric tube within the stomach. ET tube is at the timothy. Normal visualized lung bases. There is an unremarkable bowel gas pattern. There is no demonstrated free abdominal air. The visualized liver, spleen and kidneys are grossly normal in size and morphology. Normal soft tissue structures. Normal visualized osseous structures. RAD/Abdomen Single View (Portable) IMPRESSION: Enteric tube in stomach. ET tube at the timothy and should be withdrawn 2 cm. Electronically Signed: Jerod Payne MD at 23:36 EDT , Service support ,
[2019-07-20 23:16] LABS: Differential Indicated SCAN CRITERIA MET; Prothrombin Time (Protime)PT. 12.9 SECONDS (11.7-14.9)
[2019-07-20 23:17] LABS: Partial Thromboplast Time 25.1 Seconds (24.1-36.2)
[2019-07-20] MEDS: Albuterol 2.5 MG/3 ML VIAL.NEB. INHALATION ×3 (23:18→23:28)
[2019-07-20] MEDS: fentaNYL drip 100 ML 5 MCG IV (23:21)
[2019-07-20 23:30] LABS: ALB/GLOB Ratio 0.9 RATIO (0.9-2.4); AST(SGOT) 22 U/L (15-37); Alanine Aminotransfer ALT/SGPT 26 U/L (16-61); Albumin, Serum 3.8 g/dL (3.2-5.0); Alkaline Phosphatase 111 U/L (45-117); Anion Gap 2 (5-15); BUN 21 mg/dL (7-18); BUN/Creat Ratio 15.7 RATIO (10-20); Calcium,Total 8.9 mg/dL (8.5-10.1); Chloride 101 mmol/L (98-107); Creatinine, Serum 1.34 mg/dL (0.70-1.30); EST Glomerular Filtration Rate 58 mL/min (>60); Est Glom Filt Rate - Afr Amer 70 mL/min (>60); Estimated Creatinine Clearance 61.29 ml/min; Globulin 4.4 g/dL (2.2-4.2); Glucose 187 mg/dL (74-106); Potassium 4.7 mmol/L (3.5-5.1); Protein, Total 8.2 g/dL (6.4-8.2); Sodium Level 141 mmol/L (136-145)
[2019-07-20] MEDS: Ceftriaxone 1 GM/50 ML BAG IV (23:44)
--- NOTE | 2019-07-20 23:47 | ED.RN ---
cross compatibility check between fentanyl and propofol. y site compatible. medication place on same iv site. ac used for antibiotic tx. robert sterling rn
[2019-07-21] VITALS (49 sets, daily range): BP systolic 82–132; BP diastolic 32–78; PULSE 68–107; RESP 14–18; TEMP -12.3–38.6; O2SAT 94–100; BMI 33.7; BMI 34.6
[2019-07-21] MEDS: Acetaminophen 650 MG Suppository RECTAL (00:08)
[2019-07-21 00:12] LABS: Lactic Acid 1.4 mmol/L (0.4-2.0)
[2019-07-21 00:31] LABS: Blood Gas Specimen Type VEN; FI02 100; O2 Delivery Device Vent; PEEP 5; RR 14; SITE OTHER; Time Given 2355; VBG BASE EXCESS 7 mmol/L (-1.0-3.5); VBG Bicarbonate 37 mmol/L (22-26); VBG Oxygen Content 40 mmol/L (23-33); VBG PO2 34 mmHg (25-40); VBG SO2 42 % (50-70); VBG pCO2 113.2 mmHg (41-51); VBG pH 7.12 (7.32-7.42); Vt 450
--- NOTE | 2019-07-21 02:01 | PCM.HP.STD ---
Problem List (1) COPD exacerbation Status: Acute (2) Sepsis Status: Resolved (3) Acute interstitial pneumonia Status: Acute (4) Severe sepsis Status: Acute (5) Bronchospasm, acute Status: Acute (6) Hyperglycemia due to type 2 diabetes mellitus Status: Acute (7) Sinus tachycardia by electrocardiogram Status: Acute (8) Thrush, oral Status: Inactive (9) Tobacco abuse Status: Chronic (10) Stage 4 very severe COPD by GOLD classification Status: Chronic Comment: FEV1 20% of predicted (11) CAD (coronary artery disease) Status: Chronic Qualifiers: Coronary Disease-Associated Artery/Lesion type: [place] artery [place] vs. transplanted heart: [place] heart (12) Acute and chronic respiratory failure with hypoxia Status: Acute (13) Acute exacerbation of COPD with asthma Status: Acute (14) Old myocardial infarction Status: Chronic (15) History of rotator cuff surgery Status: Resolved (16) Type 2 diabetes mellitus Status: Chronic Qualifiers: Diabetes mellitus fci insulin use: without terminal gauger use Diabetes mellitus complication status: with circulatory complication Diabetes mellitus complication detail: with other circulatory complications Qualified Code(s): E11.59 - Type 2 diabetes mellitus with other circulatory complications (17) Congestive heart failure Status: Chronic Qualifiers: Heart failure type: systolic Heart failure chronicity: chronic Qualified Code(s): I50.22 - Chronic systolic (congestive) heart failure (18) MICHELLE (obstructive sleep apnea) Status: Chronic Comment: Trilogy with 2 LPM oxygen bleed (19) Anxiety Status: Acute (20) Healthcare-associated pneumonia Status: Resolved (21) Presence of stent in coronary artery Status: Chronic Comment: [facility] w/stenting to prox RCA (22) Atherosclerotic heart disease of [place] coronary artery without angina pectoris Status: Chronic Qualifiers: [place] vs. transplanted heart: [place] heart Qualified Code(s): I25.10 - Atherosclerotic heart disease of [place] coronary artery without angina pectoris Comment: [facility] w/stenting to prox RCA 07/15 (23) Chronic respiratory failure with hypoxia and hypercapnia Status: Acute (24) Acute respiratory failure with hypoxia and hypercapnia Status: Inactive (25) COPD with acute exacerbation Status: Acute (26) COPD (chronic obstructive pulmonary disease) Status: Chronic Qualifiers: COPD type: COPD with acute lower respiratory infection Qualified Code(s): J44.0 - Chronic obstructive pulmonary disease with (acute) lower respiratory infection (27) Hypertension Status: Chronic Qualifiers: Hypertension type: essential hypertension Qualified Code(s): I10 - Essential (primary) hypertension (28) Hyperlipidemia Status: Chronic Qualifiers: Hyperlipidemia type: unspecified Qualified Code(s): E78.5 - Hyperlipidemia, unspecified History of Present Illness Date of Admission: 07/21/19 Chief Complaint: Shortness of breath for 1 week The patient is a 58 year old M with history of chronic hypoxic and hypercarbic combined respiratory failure and severe end-stage, gold classification stage IV COPD was brought in by ambulance for respiratory distress. Patient came to ER on 07/19 in morning and was put on BiPAP but he signed AMA. When I saw the patient, he is already intubated on ventilator on IV sedation propofol and fentanyl. Rest of history is from ER physician, and medical record. As per , he has been short of breath, productive cough with greenish-yellow sputum wheezing for about 1 week which is progressively getting worse. He did not had chest pain as per . Patient has a history of coronary artery disease and stents last one about 2005. In ED, patient had a high fever 101.2 Fahrenheit, T-max 101.4, tachycardia heart rate 135/mi blood pressure 147/104, pulse ox 92% on 25% CPAP after which he has more obtunded lethargic, could not maintain his airway and therefore intubated. [] He has significant leukocytosis about 20,000, neutrophils 71%, lymphocyte 14% with monocytosis. On 07/19 leukocyte count on 11.2 thousand. Chemistry shows carbon dioxide 38, BUN/creatinine 21/1.34. Venous blood gas 7.12 mixed PCO2 113, on 100% FiO2/450/5 vent setting. Chest x-ray shows small left pleural effusion with ET tube 3.4 cm proximal to timothy. Chest x-rays hypoventilated with cephalization on upper lobes. Past Medical History Past Medical History (Chronic Problems): Chronic Problems (Last Reviewed 06/25/19 @ 09:00 by TEVIN Mattson) Tobacco abuse (Chronic) Stage 4 very severe COPD by GOLD classification (Chronic) FEV1 20% of predicted CAD (coronary artery disease) (Chronic) Old myocardial infarction (Chronic) Type 2 diabetes mellitus (Chronic) Congestive heart failure (Chronic) MICHELLE (obstructive sleep apnea) (Chronic) Trilogy with 2 LPM oxygen bleed Presence of stent in coronary artery (Chronic ~07/2006) [facility] w/stenting to prox RCA Atherosclerotic heart disease of [place] coronary artery without angina pectoris (Chronic) [facility] w/stenting to prox RCA 07/15 COPD (chronic obstructive pulmonary disease) (Chronic) Hypertension (Chronic) Hyperlipidemia (Chronic) Medical History: Medical History (Last Reviewed 06/25/19 @ 09:00 by Jesika Ortiz NP-Dontae) Tobacco abuse (Chronic) Z72.0 Stage 4 very severe COPD by GOLD classification (Chronic) J44.9 FEV1 20% of predicted CAD (coronary artery disease) (Chronic) I25.10 Old myocardial infarction (Chronic) I25.2 Type 2 diabetes mellitus (Chronic) E11.9 Congestive heart failure (Chronic) I50.9 MICHELLE (obstructive sleep apnea) (Chronic) G47.33 Trilogy with 2 LPM oxygen bleed Anxiety (Acute) F41.9 Healthcare-associated pneumonia (Resolved) J18.9 Atherosclerotic heart disease of [place] coronary artery without angina pectoris (Chronic) I25.10 [facility] w/stenting to prox RCA 07/15 Chronic respiratory failure with hypoxia and hypercapnia (Acute) J96.11, J96.12 Acute respiratory failure with hypoxia and hypercapnia (Inactive) J96.01, J96.02 COPD with acute exacerbation (Acute) J44.1 COPD (chronic obstructive pulmonary disease) (Chronic) J44.9 Hypertension (Chronic) I10 Hyperlipidemia (Chronic) E78.5 Acute respiratory failure with hypoxia and hypercapnia (Inactive) J96.01, J96.02 Anxiety (Inactive) F41.9 COPD with acute exacerbation (Inactive) J44.1 Chronic respiratory failure with hypoxia and hypercapnia (Inactive) J96.11, J96.12 Coronary artery disease (Inactive) I25.10 Status post stent Healthcare-associated pneumonia (Inactive) J18.9 Allergies diazepam [From Valium] Adverse Reaction (Verified 07/20/19 22:32) Vomiting Home Medications: Ambulatory Orders Medication Instructions Recorded Aspirin [Aspirin, Baby] 81 mg PO DAILY@0800 10/04/14 Atorvastatin Calcium [Lipitor] 40 mg PO QHS 10/04/14 Clopidogrel Bisulfate [Plavix] 75 mg PO DAILY 10/04/14 Furosemide [Lasix] 40 mg PO BID 10/04/14 Multivitamins,Therapeutic 1 tab PO DAILY 10/04/14 [Multivitamin] Budesonide/Formoterol 160/4.5 2 puff INHALATION BID 02/24/15 [Symbicort 160/4.5 Mcg Inhaler (SP)] Roflumilast [Daliresp] 500 mcg PO DAILY 02/24/15 Famotidine [Pepcid] 20 mg PO BID 08/01/15 metFORMIN HCl [Glucophage] 500 mg PO QHS 10/08/16 bupropion HCl 100 mg tablet 100 mg PO BID 10/25/17 Albuterol Aerosols [Ventolin 2.5 mg INHALATION Q2H PRN PRN #1 11/08/17 Aerosols] box Oxygen, Home [Home Oxygen] 4 - 6 lpm NASAL CONT #1 11/08/17 albuterol sulfate HFA 90 2 puff INHALATION Q4H PRN g 11/11/17 mcg/actuation aerosol inhaler tiotropium bromide 18 mcg capsule 1 cap INHALATION DAILY 11/11/17 with inhalation device Cholecalciferol (VIT D3) [Vitamin 1,000 unit PO DAILY tab 02/13/18 D3] ipratropium bromide 0.02 % 0.5 mg INHALATION Q4H ml 05/01/18 solution for inhalation metformin 500 mg tablet 750 mg PO BREAKFAST tab 07/19/18 losartan 25 mg tablet 25 mg PO DAILY 09/14/18 Budesonide Aerosol [Pulmicort 0.5 mg INHALATION BID 10/14/18 Respules] metoprolol tartrate 25 mg tablet 25 mg PO BID #60 tab 12/08/18 azelastine 137 mcg (0.1 %) nasal 1 spray INTRANASAL BID #30 ml 12/19/18 spray aerosol clotrimazole 10 mg nitish 10 mg MUCOUS MEMBRANE TID #90 tab 12/19/18 prednisone 10 mg tablet 10 mg PO DAILY #90 tab 03/28/19 doxycycline monohydrate 100 mg 100 mg PO BID #20 cap 06/25/19 capsule prednisone 10 mg tablet 10 mg PO QDAY #30 tab 06/25/19 Doxycycline 100 mg PO BID #20 cap 07/19/19 Prednisone [Deltasone] 60 mg PO DAILY #12 tab 07/19/19 Surgical History: Surgical History (Last Reviewed 06/25/19 @ 09:00 by TEVIN Mattson) History of rotator cuff surgery (Resolved) Z98.890 Presence of stent in coronary artery (Chronic) Onset Date: ~07/2006 Z95.5 C w/stenting to prox RCA History of PTCA (Inactive) Z98.61 Surgical History: - - Rotator cuff surgery Psychiatric History: No pertinent psych hx Lives: Spouse/ Significant Other Smoking Status: Former smoker Tobacco Use: Cigarettes Alcohol: None Drugs: None - *Family History Maternal Family History: Family History (Last Reviewed 06/25/19 @ 09:00 by TEVIN Mattson) Mother Diabetes Father Heart disease CVA (cerebral vascular accident) Brother Diabetes Asthma History Items: Clotting Disorder - Mother with history of PE following an ankle surgery Paternal Family History: Family History (Last Reviewed 06/25/19 @ 09:00 by TEVIN Mattson) Mother Diabetes Father Heart disease CVA (cerebral vascular accident) Brother Diabetes Asthma History Items: Heart Disease Review of Systems Constitutional: Reports: Chills, Fever, Weakness Respiratory: Reports: Cough, Shortness of Breath, Shortness of breath at rest, Shortness of breath upon exertion, Sputum production, Wheezing Unable to obtain accurate/complete ROS d/t: Patient is intubated and sedated VTE Information - Inpt Only VTE Present on Admission: No VTE Mechan Device Prophylaxis: SCD's VTE Pharm Prophylaxis ordered?: Yes Patient Problems: Active and Suspected Problems (Last Reviewed 06/25/19 @ 09:00 by Jesika Ortiz NP-Dontae) COPD exacerbation (Acute) Acute interstitial pneumonia (Acute) Severe sepsis (Acute) Bronchospasm, acute (Acute) Hyperglycemia due to type 2 diabetes mellitus (Acute) Sinus tachycardia by electrocardiogram (Acute) - Physical Exam General: - - Sedated and intubated. HEENT: Atraumatic, PERRLA, Normocephalic Oral: - - ET and OG tube Neck: Supple, No JVD, Negative Carotid Bruits Lungs: - - On vent support Cardiovascular: Normal S1, Normal S2, No murmurs, Tachycardic Abdomen: Bowel Sounds Present, Soft, Non Tender, Non-Distended, Hypoactive Bowel Sounds Extremities: Capillary Refill Less than 3 Seconds, Edema - 2+ pedal edema Skin: No rashes, No breakdown Musculoskeletal: No Tenderness to Palpation of Joints or Extremities, Arthritic Changes Neurological: Cranial nerves II-XII grossly intact, Neuro grossly intact Psych/Mental Status: Normal Affect, Appropriate Vital Signs Temp Pulse Resp BP Pulse Ox 100.4 F H 95 14 86/58 L 100 07/21/19 01:12 07/21/19 01:12 07/21/19 01:12 07/21/19 01:12 07/21/19 01:12 Oxygen Flow Rate (L/min) 25 Oxygen Delivery Method Mechanical Ventilator Weight: 238 lb 1.588 oz Body Mass Index (BMI) 34.1 Intake and Output for Last 24 Hours 07/19/19 07/20/19 07/21/19 23:59 23:59 23:59 Intake Total 15.84 / 15.84 69.61 / 69.61 Balance 15.84 / 15.84 69.61 / 69.61 Laboratory Tests Past 24 Hrs 07/20/19 07/20/19 07/20/19 23:00 23:00 23:00 WBC 19.9 H RBC 4.71 Hgb 10.0 L Hct 37.5 L MCV 79.6 L MCH 21.2 L MCHC 26.7 L RDW Std Deviation 45.7 H RDW Coeff of Asael 16.0 H Plt Count 556 H MPV 9.5 Immature Gran % (Auto) 1.000 H Neut % (Auto) 70.9 H Lymph % (Auto) 14.0 L Terry % (Auto) 13.8 H Eos % (Auto) 0.0 Baso % (Auto) 0.3 Absolute Neuts (auto) 14.2 H Absolute Lymphs (auto) 2.78 Nucleated RBC % 0 Diff Path Review February foll PT 12.9 INR 1.0 APTT 25.1 Specimen Type Sample Site O2 % VBG pH VBG pO2 VBG O2 Sat (Calc) VBG O2 Content VBG Base Excess POC Mix VBG pCO2 Pt Tmp Respiration Rate O2 Delivery Device Minute Volume Tidal Volume POC PEEP Blood Gas Notified Whom Blood Gas Notified Time Sodium 141 Potassium 4.7 Chloride 101 Carbon Dioxide 38.0 H Anion Gap 2 L BUN 21 H Creatinine 1.34 H Estim Creat Clear Calc 61.29 Est GFR (MDRD) Af Amer 70 Est GFR (MDRD) Non-Af 58 L BUN/Creatinine Ratio 15.7 Glucose 187 H Lactic Acid Calcium 8.9 Total Bilirubin 0.20 AST 22 ALT 26 Alkaline Phosphatase 111 Troponin I < 0.015 Total Protein 8.2 Albumin 3.8 Globulin 4.4 H Albumin/Globulin Ratio 0.9 07/20/19 07/21/19 23:40 00:22 WBC RBC Hgb Hct MCV MCH MCHC RDW Std Deviation RDW Coeff of Asael Plt Count MPV Immature Gran % (Auto) Neut % (Auto) Lymph % (Auto) Terry % (Auto) Eos % (Auto) Baso % (Auto) Absolute Neuts (auto) Absolute Lymphs (auto) Nucleated RBC % Diff Path Review PT INR APTT Specimen Type YULISSA Sample Site OTHER O2 % 100 VBG pH 7.12 L* VBG pO2 34 VBG O2 Sat (Calc) 42 L VBG O2 Content 40 H VBG Base Excess 7 H POC Mix VBG pCO2 Pt Tmp 113.2 H* Respiration Rate 14 O2 Delivery Device Vent Minute Volume 6.00 Tidal Volume 450 POC PEEP 5 Blood Gas Notified Whom ED MD Blood Gas Notified Time 2355 Sodium Potassium Chloride Carbon Dioxide Anion Gap BUN Creatinine Estim Creat Clear Calc Est GFR (MDRD) Af Amer Est GFR (MDRD) Non-Af BUN/Creatinine Ratio Glucose Lactic Acid 1.4 Calcium Total Bilirubin AST ALT Alkaline Phosphatase Troponin I Total Protein Albumin Globulin Albumin/Globulin Ratio Assessment/Plan All Active Problems (Last Reviewed 06/25/19 @ 09:00 by Jesika Ortiz, CYNTHIA-C) COPD exacerbation (Acute) Sepsis (Resolved) Acute interstitial pneumonia (Acute) Severe sepsis (Acute) Bronchospasm, acute (Acute) Hyperglycemia due to type 2 diabetes mellitus (Acute) Sinus tachycardia by electrocardiogram (Acute) Acute and chronic respiratory failure with hypoxia (Acute) Acute exacerbation of COPD with asthma (Acute) History of rotator cuff surgery (Resolved) Anxiety (Acute) Healthcare-associated pneumonia (Resolved) Chronic respiratory failure with hypoxia and hypercapnia (Acute) COPD with acute exacerbation (Acute) Acute kidney injury (Resolved) Nicotine dependence (Resolved) Sepsis (Resolved) The patient is a 58 year old M with history of chronic hypoxic and hypercarbic combined respiratory failure and severe end-stage, gold classification stage IV COPD was brought in by ambulance for respiratory distress. Patient came to ER on 07/19 in morning and was put on BiPAP but he signed AMA. When I saw the patient, he is already intubated on ventilator on IV sedation propofol and fentanyl. Rest of history is from ER physician, and medical record. As per , he has been short of breath, productive cough with greenish-yellow sputum wheezing for about 1 week which is progressively getting worse. He did not had chest pain as per . Patient has a history of coronary artery disease and stents last one about 2005. In ED, patient had a high fever 101.2 Fahrenheit, T-max 101.4, tachycardia heart rate 135/mi blood pressure 147/104, pulse ox 92% on 25% CPAP after which he has more obtunded lethargic, could not maintain his airway and therefore intubated. [] He has significant leukocytosis about 20,000, neutrophils 71%, lymphocyte 14% with monocytosis. On 07/19 leukocyte count on 11.2 thousand. Chemistry shows carbon dioxide 38, BUN/creatinine 21/1.34. Chest x-ray shows small left pleural effusion with ET tube 3.4 cm proximal to timothy. Chest x-rays hypoventilated with cephalization on upper lobes. 1. Acute on chronic hypoxic and hypercarbic combined respiratory failure possible secondary to pneumonia and COPD exacerbation: Patient is being admitted in ICU. Vent support. Grab Jack Man informed by ER physician. Venous blood gas 7.12 mixed PCO2 113, on 100% FiO2/450/5 vent setting. Repeat ABG as the first 1 is venous. 2. Sepsis(fever, tachycardia, tachypnea, severe hypoxia and leukocytosis) due to possible bilateral interstitial pneumonia: Present chest x-ray is of poor quality but increased interstitial prominence. Previous chest x-ray on 07/19 shows right upper lobe scarring mild left upper lobe opacity. Bibasilar scarring. On broad-spectrum IV antibiotic vancomycin and Zosyn. Sepsis work-up including blood cultures x2, UA, urine culture, MRSA nasal screen, endotracheal sputum culture and respiratory panel. Lactic acid normal 3. COPD exacerbation: Bronchodilator, IV Solu-Medrol, chest physiotherapy and bronchopulmonary hygiene. 4. coronary artery disease status post stents: Troponin is negative. EKG sinus tachycardia at 121 bpm no significant change from previous EKG. 5. Chronic diastolic heart failure: Patient had echo in March 2017 and reported as EF 60% with impaired relaxation of left ventricle and basal wall hypokinetic. Left atrium mildly enlarged. Normal right atrium. Mild TR. RVSP could not be estimated secondary to technically difficult to study. No pericardial effusion. BNP ordered. echo tomorrow a.m. DVT prophylaxis: Lovenox 40 mg subcu daily. Bilateral SCDs. Laboratory Results 07/20/19 23:00: WBC 19.9 H, RBC 4.71, Hgb 10.0 L, Hct 37.5 L, MCV 79.6 L, MCH 21.2 L, MCHC 26.7 L, RDW Std Deviation 45.7 H, RDW Coeff of Asael 16.0 H, Plt Count 556 H, MPV 9.5, Immature Gran % (Auto) 1.000 H, Neut % (Auto) 70.9 H, Lymph % (Auto) 14.0 L, Terry % (Auto) 13.8 H, Eos % (Auto) 0.0, Baso % (Auto) 0.3, Absolute Neuts (auto) 14.2 H, Absolute Lymphs (auto) 2.78, Nucleated RBC % 0, Diff Path Review February07/20/19 23:00: PT 12.9, INR 1.0, APTT 25.1 07/20/19 23:00: Sodium 141, Potassium 4.7, Chloride 101, Carbon Dioxide 38.0 H, Anion Gap 2 L, BUN 21 H, Creatinine 1.34 H, Estim Creat Clear Calc 61.29, Est GFR (MDRD) Af Amer 70, Est GFR (MDRD) Non-Af 58 L, BUN/Creatinine Ratio 15.7, Glucose 187 H, Calcium 8.9, Total Bilirubin 0.20, AST 22, ALT 26, Alkaline Phosphatase 111, Troponin I < 0.015, Total Protein 8.2, Albumin 3.8, Globulin 4.4 H, Albumin/Globulin Ratio 0.9 07/20/19 23:40: Lactic Acid 1.4 07/21/19 00:22: Specimen Type YULISSA, Sample Site OTHER, O2 % 100, VBG pH 7.12 L*, VBG pO2 34, VBG O2 Sat (Calc) 42 L, VBG O2 Content 40 H, VBG Base Excess 7 H, POC Mix VBG pCO2 Pt Tmp 113.2 H*, Respiration Rate 14, O2 Delivery Device Vent, Minute Volume 6.00, Tidal Volume 450, POC PEEP 5, Blood Gas Notified Whom ED MD, Blood Gas Notified Time 2356 Clinical Impression(s) from Imaging Studies Chest X-Ray 07/20/19 22:29 IMPRESSION: Limited inspiration. Endotracheal tube seen with tip approximately 3.4 cm proximal to the timothy. There is a small left-sided effusion. There is mild cardiomegaly. A nasogastric tube is present with tip projecting over the distal esophagus. KUB X-Ray 07/20/19 23:10 IMPRESSION: Enteric tube in stomach. ET tube at the timothy and should be withdrawn 2 cm. Code Visit Inpatient E&M: 22009 Init Hosp L3
[2019-07-21] MEDS: Propofol 10MG/Ml 1,000 MG/100 ML Bottle 16.2 MG CONT INF (02:17)
[2019-07-21] MEDS: 0.9% Normal Saline 1,000 ML 1000 ML IV ×2 (02:30→03:49)
[2019-07-21 02:47] LABS: Magnesium 2.2 mg/dL (1.6-2.6)
[2019-07-21] MEDS: 0.9% NaCl IVPB Med Flush (250 mL) 15 ML IV (03:34)
[2019-07-21 03:48] LABS: Absolute Lymphocyte Count 0.33 X10^3/uL (0.83-4.51); Absolute Neutrophil Count 10.1 X10^3/uL (2.0-7.7); Basophil# 0.01 X10^3/uL; Basophil% 0.1 % (0-1); Hematocrit 29.6 % (40-54); Hemoglobin 7.9 g/dL (13.0-16.5); Lymphocyte # 0.33 X10^3/ul (4.0); Lymphocyte % 2.9 % (19-41); Mean Corp Hgb Conc 26.7 g/dL (32-36); Mean Corpuscular Hgb 21.4 pg (27.0-32.0); Mean Platelet Vol. 9.1 fl (6.2-12.0); Monocyte# 0.68 X10^3/uL; NRBC Flagged by Analyzer 0 % (0-5); Neutrophil # 10.14 X10^3/uL (2.7-7.7); Neutrophil % 90.2 % (47-70); POSITIVE DIFFERENTIAL YES; Platelet Count 357 K/mm3 (150-450); RBC Distribution Width CV 15.8 % (11.6-14.6); RBC Distribution Width SD 45.9 fl (35.1-43.9); White Blood Count 11.3 K/mm3 (4.4-11.0)
[2019-07-21 03:49] LABS: Differential Indicated SCAN CRITERIA MET
[2019-07-21 03:56] LABS: International Normalized Ratio 1.1; Prothrombin Time (Protime)PT. 13.6 SECONDS (11.7-14.9)
[2019-07-21 03:57] LABS: Partial Thromboplast Time 25.1 Seconds (24.1-36.2)
[2019-07-21 04:10] LABS: Bacteria 0 SEEN /hpf (None Seen); Mucous, Urine 0 SEEN /hpf (<or=2+); Squamous Epithelial Cells - UA 0 SEEN /hpf (0-5)
[2019-07-21 04:16] LABS: Color, Urine Yellow (Yellow); Glucose, Dipstick Normal (Normal); Ketone-Dipstick Negative (Negative); Leukocyte Esterase-Dipstick Negative /ul (Negative); Nitrite-Dipstick Negative (Negative); Occult Blood-Urine 150 /ul (Negative); Protein-Dipstick 30 mg/dl (Negative); Urine Bilirubin Dipstick Negative (Negative); Urine Clarity Clear (Clear); Urine Urobilinogen Normal (Normal)
[2019-07-21 04:17] LABS: Anion Gap 4 (5-15); BNP,B-Type NATRIURETIC PEPTIDE 38.5 pg/mL (0-100); BUN 24 mg/dL (7-18); BUN/Creat Ratio 16.8 RATIO (10-20); Calcium,Total 7.6 mg/dL (8.5-10.1); Chloride 106 mmol/L (98-107); Creatinine, Serum 1.43 mg/dL (0.70-1.30); EST Glomerular Filtration Rate 54 mL/min (>60); Est Glom Filt Rate - Afr Amer 65 mL/min (>60); Estimated Creatinine Clearance 57.43 ml/min; Glucose 146 mg/dL (74-106); Potassium 4.7 mmol/L (3.5-5.1); Sodium Level 144 mmol/L (136-145); Thyroid Stim Hormone (TSH) 0.22 uIU/mL (0.358-3.74)
[2019-07-21 04:19] LABS: Hyaline Cast 0-5 SEEN /lpf (0-5)
[2019-07-21 04:21] LABS: Fine Granular Cast- Urine 0-5 SEEN /lpf (0-5)
[2019-07-21 04:22] LABS: Red Blood Cells-Urine 0-5 SEEN /hpf (0-5); White Blood Cells 0-5 SEEN /hpf (0-5)
[2019-07-21 04:24] LABS: Transitional Epithelial - Ur 0-5 SEEN /hpf (0-5)
[2019-07-21 04:27] LABS: Phosphorus 2.7 mg/dL (2.5-4.9)
[2019-07-21] MEDS: 0.9% Normal Saline 1,000 ML 150 ML IV ×2 (04:54→12:22)
--- NOTE | 2019-07-21 04:54 | PCM.RX.CS ---
Consult Pharmacy has been consulted to manage selected antiobiotic: Vancomycin Type of Consult: New start Suspected Infection: Other Prior Doses of Antibiotics Received/Current Regimen: Medications Vancomycin HCl 1,500 mg/ (Sodium Chloride) 530 mls @ 250 mls/hr IV X1 ONE Stop: 07/21/19 05:07 Last Admin: 07/21/19 03:34 Dose: 250 mls/hr Documented by: Labs: Sodium 144 mmol/L (136-145) 07/21/19 03:30 Potassium 4.7 mmol/L (3.5-5.1) 07/21/19 03:30 Chloride 106 mmol/L (98-107) 07/21/19 03:30 Carbon Dioxide 34.0 mmol/L (21.0-32.0) H 07/21/19 03:30 Anion Gap 4 (5-15) L 07/21/19 03:30 BUN 24 mg/dL (7-18) H 07/21/19 03:30 Creatinine 1.43 mg/dL (0.70-1.30) H 07/21/19 03:30 Est GFR (MDRD) Af Amer 65 mL/min (>60) 07/21/19 03:30 Est GFR (MDRD) Non-Af 54 mL/min (>60) L 07/21/19 03:30 BUN/Creatinine Ratio 16.8 RATIO (10-20) 07/21/19 03:30 Glucose 146 mg/dL (74-106) H 07/21/19 03:30 Microbiology: Microbiology 07/21/19 03:55 Urine Catheter - Rashid Legionella Antigen - Final 07/21/19 03:55 Urine Catheter - Rashid Streptococcus pneumoniae Antigen (M - Final Weight used for dosin kg Estimated Creatinine Clearance: 61 mL/min Goal Trough: 15-20 mcg/mL Pharmacy Plan for Drug Dosing: Vancomycin 1500mg IV given x1, 1250mg IV q12h to continue after, trough prior to 4th dose per policy. Pharmacy Service will continue to monitor and adjust dosing as required. Follow-Up Labs: Trough Vancomycin - 07/22 @ 1500
[2019-07-21] MEDS: Ipratropium/Albuterol Sulfate 3 ML AMPUL.NEB INHALATION ×5 (05:30→22:46)
--- NOTE | 2019-07-21 05:55 | ECHOCS_ITS ---
Reason For Study: Dyspnea/SPB Procedure This was a 2D Doppler, Color Flow transthoracic echocardiogram. Contrast injection was performed. The study was technically difficult. Patient on Vent. Exam performed portable in ICU/CCU. Left Ventricle Normal size and thickness. The estimated ejection fraction is 65 %. No evidence for diastolic dysfunction. No regional wall motion abnormalities noted. Right Ventricle Normal RV size. Normal systolic function. Atria Normal left atrium. Normal right atrium. No doppler evidence for ASD. Mitral Valve There is no mitral valve stenosis. No mitral valve insufficiency. Tricuspid Valve There is no tricuspid stenosis. Unable to estimate RV systolic pressure due to inadequate jet, pulmonary artery pressure probably normal. Aortic Valve Trisinus/trileaflet aortic valve. There is no aortic stenosis. No aortic valve insufficiency. Pulmonic Valve There is no pulmonic valvular stenosis. No pulmonic valve insufficiency. Great Vessels Normal aortic root. Pericardium/Pleural No pericardial effusion. MMode/2D Measurements & Calculations LVIDd: 4.8 cm IVSd: 1.2 cm LAV(MOD-sp4): 51.7 ml LVIDs: 3.5 cm LVPWd: 1.5 cm FS: 26.9 % LA A4 area: 18.1 cm2 Time Measurements MV dec time: 0.21 sec Doppler Measurements & Calculations MV E max frederic: 87.0 cm/sec Lat Peak E' Frederic: 8.4 cm/sec Med Peak E' Frederic: 9.4 cm/sec MV A max frederic: 72.5 cm/sec E/E' lat: 10.4 E/E' med: 9.2 MV E/A: 1.2 MV V2 max: 120.4 cm/sec MV P1/2t max frederic: 120.4 cm/sec Ao V2 max: 151.2 cm/sec MV max P.8 mmHg MV P1/2t: 83.4 msec Ao max P.1 mmHg MV V2 mean: 71.6 cm/sec MV dec slope: 422.8 cm/sec2 MV mean P.4 mmHg MVA(P1/2t): 2.6 cm2 MV V2 VTI: 31.1 cm LV V1 max: 133.5 cm/sec PA V2 max: 96.3 cm/sec LV V1 max P.1 mmHg Interpretation Summary The study was technically difficult. Contrast injection was performed. The estimated ejection fraction is 65 %. No evidence for diastolic dysfunction. The study was technically difficult. Contrast injection was performed. Ordering Physician: Ed Littlejohn Referring Physician: Kenia Matthew Performed By: Albert Stephens RCS
[2019-07-21] MEDS: 0.9% NaCl Peripheral Flush Adult/Peds IV (06:00)
[2019-07-21 06:06] LABS: Bedside Glucose 146 mg/dL (70-110)
--- NOTE | 2019-07-21 06:17 | PCM.CON.CC ---
Reason for Consult Date of Consultation: 07/21/19 Reason for Consultation: Acute on chronic respiratory failure History of Present Illness: The patient is a 58-year-old male, with a history as outlined below, who presented to the emergency department on July 20 via EMS in respiratory distress. Per ED documentation, the patient was obtunded upon arrival to the emergency department. The patient had been evaluated in the emergency department the day prior with complaints of shortness of breath. He was noted at that time to be complaining of increasing cough with sputum production. Medical management was initiated in the emergency department. However, the patient subsequently refused to be admitted to the hospital and subsequently signed out AGAINST MEDICAL ADVICE. The patient is followed longitudinally in the pulmonary medicine clinic by Dr. Mendez. He was last seen in our office in June 2019, at which time, the patient was treated with doxycycline and prednisone for a COPD exacerbation. The patient has a baseline 3 L/min supplemental oxygen requirement with exertion based upon 6-minute walk test completed in June 2017. 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 The patient has an FEV1 of 18% of predicted. The patient also has known obstructive sleep apnea, for which it was recommended that the patient be on bilevel with a pressure support of 15/11, according to polysomnogram last completed in 2015. According to documentation, the patient is currently prescribed a noninvasive ventilator in his home environment. He utilizes at his baseline somewhere between 4 and 6 L/min continuously. On presentation to the emergency department, the patient was noted to be afebrile, tachycardic and tachypneic. Laboratory evaluation revealed an elevated white blood cell count to 20,000. The patient also had evidence of microcytic anemia with a presenting hemoglobin of 10 g/dL. Platelet count was elevated to 556,000. Coagulation profile was within normal limits. Chemistry profile revealed a chronically elevated serum bicarbonate level along with evidence of acute kidney injury with a creatinine of 1.34. Lactate was within normal limits. Troponin was negative. BNP was unremarkable. Urinalysis was unrevealing. Plain film chest x-ray was of poor inspiratory effort and revealed blunting of the left costophrenic angle. The patient was subsequently intubated in the emergency department and started on antimicrobials. The patient was then transferred to the medical intensive care unit for further management. Past Medical History Past Medical History (Chronic Problems): Chronic Problems (Last Reviewed 06/25/19 @ 09:00 by Jesika Ortiz NP-Dontae) Tobacco abuse (Chronic) Stage 4 very severe COPD by GOLD classification (Chronic) FEV1 20% of predicted CAD (coronary artery disease) (Chronic) Old myocardial infarction (Chronic) Type 2 diabetes mellitus (Chronic) Congestive heart failure (Chronic) MICHELLE (obstructive sleep apnea) (Chronic) Trilogy with 2 LPM oxygen bleed Presence of stent in coronary artery (Chronic ~07/2006) [facility] w/stenting to prox RCA Atherosclerotic heart disease of enterprise coronary artery without angina pectoris (Chronic) [facility] w/stenting to prox RCA 07/15 COPD (chronic obstructive pulmonary disease) (Chronic) Hypertension (Chronic) Hyperlipidemia (Chronic) Medical History: Medical History (Last Reviewed 06/25/19 @ 09:00 by Jesika Ortiz NP-C) Tobacco abuse (Chronic) Z72.0 Stage 4 very severe COPD by GOLD classification (Chronic) J44.9 FEV1 20% of predicted CAD (coronary artery disease) (Chronic) I25.10 Old myocardial infarction (Chronic) I25.2 Type 2 diabetes mellitus (Chronic) E11.9 Congestive heart failure (Chronic) I50.9 MICHELLE (obstructive sleep apnea) (Chronic) G47.33 Trilogy with 2 LPM oxygen bleed Anxiety (Acute) F41.9 Healthcare-associated pneumonia (Resolved) J18.9 Atherosclerotic heart disease of enterprise coronary artery without angina pectoris (Chronic) I25.10 [facility] w/stenting to prox RCA 07/15 Chronic respiratory failure with hypoxia and hypercapnia (Acute) J96.11, J96.12 Acute respiratory failure with hypoxia and hypercapnia (Inactive) J96.01, J96.02 COPD with acute exacerbation (Acute) J44.1 COPD (chronic obstructive pulmonary disease) (Chronic) J44.9 Hypertension (Chronic) I10 Hyperlipidemia (Chronic) E78.5 Acute respiratory failure with hypoxia and hypercapnia (Inactive) J96.01, J96.02 Anxiety (Inactive) F41.9 COPD with acute exacerbation (Inactive) J44.1 Chronic respiratory failure with hypoxia and hypercapnia (Inactive) J96.11, J96.12 Coronary artery disease (Inactive) I25.10 Status post stent Healthcare-associated pneumonia (Inactive) J18.9 Allergies diazepam [From Valium] Adverse Reaction (Verified 07/20/19 22:32) Vomiting Home Medications: Ambulatory Orders Medication Instructions Recorded Aspirin [Aspirin, Baby] 81 mg PO DAILY@0800 10/04/14 Atorvastatin Calcium [Lipitor] 40 mg PO QHS 10/04/14 Clopidogrel Bisulfate [Plavix] 75 mg PO DAILY 10/04/14 Furosemide [Lasix] 40 mg PO BID 10/04/14 Multivitamins,Therapeutic 1 tab PO DAILY 10/04/14 [Multivitamin] Budesonide/Formoterol 160/4.5 2 puff INHALATION BID 02/24/15 [Symbicort 160/4.5 Mcg Inhaler (SP)] Roflumilast [Daliresp] 500 mcg PO DAILY 02/24/15 Famotidine [Pepcid] 20 mg PO BID 08/01/15 metFORMIN HCl [Glucophage] 500 mg PO QHS 10/08/16 bupropion HCl 100 mg tablet 100 mg PO BID 10/25/17 Albuterol Aerosols [Ventolin 2.5 mg INHALATION Q2H PRN PRN #1 11/08/17 Aerosols] box Oxygen, Home [Home Oxygen] 4 - 6 lpm NASAL CONT #1 11/08/17 albuterol sulfate HFA 90 2 puff INHALATION Q4H PRN g 11/11/17 mcg/actuation aerosol inhaler tiotropium bromide 18 mcg capsule 1 cap INHALATION DAILY 11/11/17 with inhalation device Cholecalciferol (VIT D3) [Vitamin 1,000 unit PO DAILY tab 02/13/18 D3] ipratropium bromide 0.02 % 0.5 mg INHALATION Q4H ml 05/01/18 solution for inhalation metformin 500 mg tablet 750 mg PO BREAKFAST tab 07/19/18 losartan 25 mg tablet 25 mg PO DAILY 09/14/18 Budesonide Aerosol [Pulmicort 0.5 mg INHALATION BID 10/14/18 Respules] metoprolol tartrate 25 mg tablet 25 mg PO BID #60 tab 12/08/18 azelastine 137 mcg (0.1 %) nasal 1 spray INTRANASAL BID #30 ml 12/19/18 spray aerosol clotrimazole 10 mg nitish 10 mg MUCOUS MEMBRANE TID #90 tab 12/19/18 prednisone 10 mg tablet 10 mg PO DAILY #90 tab 03/28/19 doxycycline monohydrate 100 mg 100 mg PO BID #20 cap 09/16/19 capsule prednisone 10 mg tablet 10 mg PO QDAY #30 tab 06/25/19 Doxycycline 100 mg PO BID #20 cap 07/19/19 Prednisone [Deltasone] 60 mg PO DAILY #12 tab 07/19/19 Surgical History: Surgical History (Last Reviewed 06/25/19 @ 09:00 by TEVIN Mattson) History of rotator cuff surgery (Resolved) Z98.890 Presence of stent in coronary artery (Chronic) Onset Date: ~07/2006 Z95.5 C w/stenting to prox RCA History of PTCA (Inactive) Z98.61 Surgical History: - - Rotator cuff surgery Psychiatric History: No pertinent psych hx Lives: Spouse/ Significant Other Smoking Status: Former smoker Tobacco Use: Cigarettes Alcohol: None Drugs: None - *Family History Maternal Family History: Family History (Last Reviewed 06/25/19 @ 09:00 by TEVIN Mattson) Mother Diabetes Father Heart disease CVA (cerebral vascular accident) Brother Diabetes Asthma History Items: Clotting Disorder - Mother with history of PE following an ankle surgery Paternal Family History: Family History (Last Reviewed 06/25/19 @ 09:00 by TEVIN Mattson) Mother Diabetes Father Heart disease CVA (cerebral vascular accident) Brother Diabetes Asthma History Items: Heart Disease Review of Systems Unable to obtain accurate/complete ROS d/t: Due to current intubation and mechanical ventilation status Patient Problems: Active and Suspected Problems (Last Reviewed 06/25/19 @ 09:00 by TEVIN Mattson) COPD exacerbation (Acute) Acute interstitial pneumonia (Acute) Severe sepsis (Acute) Bronchospasm, acute (Acute) Hyperglycemia due to type 2 diabetes mellitus (Acute) Sinus tachycardia by electrocardiogram (Acute) Objective: The patient's most recent lab work, culture data and imaging studies have all been personally reviewed. Strep and urine Legionella antigens were both negative. Respiratory viral panel is pending. Blood, urine and sputum cultures are pending. Surface echocardiogram from March 2017 revealed segmental dysfunction with preserved ejection fraction of 60%. There was evidence of diastolic dysfunction. - Physical Exam General: - - Intubated, sedated and mechanically ventilated. HEENT: Atraumatic, PERRLA, Normocephalic Oral: No Gingival or Mucosal Lesions/ Ulcerations, - - Endotracheal and OG tubes currently in place Neck: Supple, No Nodes, Trachea Midline Lungs: No rhonchi, No wheeze, No rales, Diminished Cardiovascular: Regular rate, Regular Rhythm, Normal S1, Normal S2, No murmurs Abdomen: Bowel Sounds Present, Soft, Non Tender, Distended, Obese Extremities: No clubbing, No cyanosis, No edema Skin: No breakdown Musculoskeletal: No Tenderness to Palpation of Joints or Extremities Lymphatic: No Cervical, Supraclavicular, or Inguinal Adenopathy Neurological: - - No focal neurological deficits. Currently sedated. Vital Signs Temp Pulse Resp BP Pulse Ox 99.7 F H 85 14 86/43 L 100 07/21/19 05:00 07/21/19 05:30 07/21/19 05:30 07/21/19 05:00 07/21/19 05:30 Oxygen Flow Rate (L/min) 25 Oxygen Delivery Method Mechanical Ventilator Weight: 234 lb 9.149 oz Body Mass Index (BMI) 34.6 Intake and Output for Last 24 Hours 07/19/19 07/20/19 07/21/19 23:59 23:59 23:59 Intake Total 15.84 / 15.84 3392.11 / 3392.11 Output Total 550 / 550 Balance 15.84 / 15.84 2842.11 / 2842.11 Microbiology Past 72 Hours 07/21/19 03:55 Legionella Antigen - Final Urine Catheter - Rashid 07/21/19 03:55 Streptococcus pneumoniae Antigen (M - Final Urine Catheter - Rashid Laboratory Tests Past 24 Hrs 07/20/19 07/20/19 07/20/19 23:00 23:00 23:00 WBC 19.9 H RBC 4.71 Hgb 10.0 L Hct 37.5 L MCV 79.6 L MCH 21.2 L MCHC 26.7 L RDW Std Deviation 45.7 H RDW Coeff of Asael 16.0 H Plt Count 556 H MPV 9.5 Immature Gran % (Auto) 1.000 H Neut % (Auto) 70.9 H Lymph % (Auto) 14.0 L [place] % (Auto) 13.8 H Eos % (Auto) 0.0 Baso % (Auto) 0.3 Absolute Neuts (auto) 14.2 H Absolute Lymphs (auto) 2.78 Nucleated RBC % 0 Diff Path Review May foll PT 12.9 INR 1.0 APTT 25.1 Specimen Type Sample Site O2 % VBG pH VBG pO2 VBG O2 Sat (Calc) VBG O2 Content VBG Base Excess POC Mix VBG pCO2 Pt Tmp Respiration Rate O2 Delivery Device Minute Volume Tidal Volume POC PEEP Blood Gas Notified Whom Blood Gas Notified Time Sodium 141 Potassium 4.7 Chloride 101 Carbon Dioxide 38.0 H Anion Gap 2 L BUN 21 H Creatinine 1.34 H Estim Creat Clear Calc 61.29 Est GFR (MDRD) Af Amer 70 Est GFR (MDRD) Non-Af 58 L BUN/Creatinine Ratio 15.7 Glucose 187 H Lactic Acid Calcium 8.9 Phosphorus Magnesium Total Bilirubin 0.20 AST 22 ALT 26 Alkaline Phosphatase 111 Troponin I < 0.015 B-Natriuretic Peptide Total Protein 8.2 Albumin 3.8 Globulin 4.4 H Albumin/Globulin Ratio 0.9 TSH Urine Color Urine Clarity Urine pH Ur Specific [place] Urine Protein Urine Glucose (UA) Urine Ketones Urine Occult Blood Urine Nitrite Urine Bilirubin Urine Urobilinogen Ur Leukocyte Esterase Urine RBC Urine WBC Ur Squamous Epith Cells Ur Transition Epith Cell Urine Bacteria Hyaline Casts Fine Granular Casts Urine Mucus 07/20/19 07/21/19 07/21/19 23:40 00:22 02:05 WBC RBC Hgb Hct MCV MCH MCHC RDW Std Deviation RDW Coeff of Asael Plt Count MPV Immature Gran % (Auto) Neut % (Auto) Lymph % (Auto) [place] % (Auto) Eos % (Auto) Baso % (Auto) Absolute Neuts (auto) Absolute Lymphs (auto) Nucleated RBC % Diff Path Review PT INR APTT Specimen Type YULISSA Sample Site OTHER O2 % 100 VBG pH 7.12 L* VBG pO2 34 VBG O2 Sat (Calc) 42 L VBG O2 Content 40 H VBG Base Excess 7 H POC Mix VBG pCO2 Pt Tmp 113.2 H* Respiration Rate 14 O2 Delivery Device Vent Minute Volume 6.00 Tidal Volume 450 POC PEEP 5 Blood Gas Notified Whom ED Blood Gas Notified Time 2355 Sodium Potassium Chloride Carbon Dioxide Anion Gap BUN Creatinine Estim Creat Clear Calc Est GFR (MDRD) Af Amer Est GFR (MDRD) Non-Af BUN/Creatinine Ratio Glucose Lactic Acid 1.4 Calcium Phosphorus Magnesium 2.2 Total Bilirubin AST ALT Alkaline Phosphatase Troponin I B-Natriuretic Peptide Total Protein Albumin Globulin Albumin/Globulin Ratio TSH Urine Color Urine Clarity Urine pH Ur Specific [place] Urine Protein Urine Glucose (UA) Urine Ketones Urine Occult Blood Urine Nitrite Urine Bilirubin Urine Urobilinogen Ur Leukocyte Esterase Urine RBC Urine WBC Ur Squamous Epith Cells Ur Transition Epith Cell Urine Bacteria Hyaline Casts Fine Granular Casts Urine Mucus 07/21/19 07/21/19 07/21/19 03:30 03:30 03:30 WBC 11.3 H RBC 3.70 L Hgb 7.9 L Hct 29.6 L MCV 80.0 MCH 21.4 L MCHC 26.7 L RDW Std Deviation 45.9 H RDW Coeff of Asael 15.8 H Plt Count 357 MPV 9.1 Immature Gran % (Auto) 0.800 Neut % (Auto) 90.2 H Lymph % (Auto) 2.9 L [place] % (Auto) 6.0 Eos % (Auto) 0.0 Baso % (Auto) 0.1 Absolute Neuts (auto) 10.1 H Absolute Lymphs (auto) 0.33 L Nucleated RBC % 0 Diff Path Review PT INR APTT Specimen Type Sample Site O2 % VBG pH VBG pO2 VBG O2 Sat (Calc) VBG O2 Content VBG Base Excess POC Mix VBG pCO2 Pt Tmp Respiration Rate O2 Delivery Device Minute Volume Tidal Volume POC PEEP Blood Gas Notified Whom Blood Gas Notified Time Sodium 144 Potassium 4.7 Chloride 106 Carbon Dioxide 34.0 H Anion Gap 4 L BUN 24 H Creatinine 1.43 H Estim Creat Clear Calc 57.43 Est GFR (MDRD) Af Amer 65 Est GFR (MDRD) Non-Af 54 L BUN/Creatinine Ratio 16.8 Glucose 146 H Lactic Acid Calcium 7.6 L Phosphorus 2.7 Magnesium Total Bilirubin AST ALT Alkaline Phosphatase Troponin I B-Natriuretic Peptide Total Protein Albumin Globulin Albumin/Globulin Ratio TSH 0.22 L Urine Color Urine Clarity Urine pH Ur Specific [place] Urine Protein Urine Glucose (UA) Urine Ketones Urine Occult Blood Urine Nitrite Urine Bilirubin Urine Urobilinogen Ur Leukocyte Esterase Urine RBC Urine WBC Ur Squamous Epith Cells Ur Transition Epith Cell Urine Bacteria Hyaline Casts Fine Granular Casts Urine Mucus 07/21/19 07/21/19 07/21/19 03:30 03:30 03:30 WBC RBC Hgb Hct MCV MCH MCHC RDW Std Deviation RDW Coeff of Asael Plt Count MPV Immature Gran % (Auto) Neut % (Auto) Lymph % (Auto) [place] % (Auto) Eos % (Auto) Baso % (Auto) Absolute Neuts (auto) Absolute Lymphs (auto) Nucleated RBC % Diff Path Review PT 13.6 INR 1.1 APTT 25.1 Specimen Type Sample Site O2 % VBG pH VBG pO2 VBG O2 Sat (Calc) VBG O2 Content VBG Base Excess POC Mix VBG pCO2 Pt Tmp Respiration Rate O2 Delivery Device Minute Volume Tidal Volume POC PEEP Blood Gas Notified Whom Blood Gas Notified Time Sodium Potassium Chloride Carbon Dioxide Anion Gap BUN Creatinine Estim Creat Clear Calc Est GFR (MDRD) Af Amer Est GFR (MDRD) Non-Af BUN/Creatinine Ratio Glucose Lactic Acid Calcium Phosphorus Magnesium Total Bilirubin AST ALT Alkaline Phosphatase Troponin I 0.019 B-Natriuretic Peptide 38.5 Total Protein Albumin Globulin Albumin/Globulin Ratio TSH Urine Color Urine Clarity Urine pH Ur Specific [place] Urine Protein Urine Glucose (UA) Urine Ketones Urine Occult Blood Urine Nitrite Urine Bilirubin Urine Urobilinogen Ur Leukocyte Esterase Urine RBC Urine WBC Ur Squamous Epith Cells Ur Transition Epith Cell Urine Bacteria Hyaline Casts Fine Granular Casts Urine Mucus 07/21/19 07/21/19 03:55 05:55 WBC RBC Hgb Hct MCV MCH MCHC RDW Std Deviation RDW Coeff of Asael Plt Count MPV Immature Gran % (Auto) Neut % (Auto) Lymph % (Auto) [place] % (Auto) Eos % (Auto) Baso % (Auto) Absolute Neuts (auto) Absolute Lymphs (auto) Nucleated RBC % Diff Path Review PT INR APTT Specimen Type Sample Site O2 % VBG pH VBG pO2 VBG O2 Sat (Calc) VBG O2 Content VBG Base Excess POC Mix VBG pCO2 Pt Tmp Respiration Rate O2 Delivery Device Minute Volume Tidal Volume POC PEEP Blood Gas Notified Whom Blood Gas Notified Time Sodium Potassium Chloride Carbon Dioxide Anion Gap BUN Creatinine Estim Creat Clear Calc Est GFR (MDRD) Af Amer Est GFR (MDRD) Non-Af BUN/Creatinine Ratio Glucose Lactic Acid Calcium Phosphorus Magnesium Total Bilirubin AST ALT Alkaline Phosphatase Troponin I Pending B-Natriuretic Peptide Total Protein Albumin Globulin Albumin/Globulin Ratio TSH Urine Color Yellow Urine Clarity Clear Urine pH 5.0 Ur Specific [place] 1.020 Urine Protein 30 H Urine Glucose (UA) Normal Urine Ketones Negative Urine Occult Blood 150 H Urine Nitrite Negative Urine Bilirubin Negative Urine Urobilinogen Normal Ur Leukocyte Esterase Negative Urine RBC 0-5 SEEN Urine WBC 0-5 SEEN Ur Squamous Epith Cells 0 SEEN Ur Transition Epith Cell 0-5 SEEN Urine Bacteria 0 SEEN Hyaline Casts 0-5 SEEN Fine Granular Casts 0-5 SEEN Urine Mucus 0 SEEN POC Glucose 07/21/19 05:55 POC Glucose 146 H Clinical Impression(s) from Imaging Studies Chest X-Ray 07/20/19 22:29 IMPRESSION: Limited inspiration. Endotracheal tube seen with tip approximately 3.4 cm proximal to the timothy. There is a small left-sided effusion. There is mild cardiomegaly. A nasogastric tube is present with tip projecting over the distal esophagus. Electronically Signed: Del Dale MD at 23:37 EDT , Service support , KUB X-Ray 07/20/19 23:10 IMPRESSION: Enteric tube in stomach. ET tube at the timothy and should be withdrawn 2 cm. Electronically Signed: Jerod Payne MD at 23:36 EDT , Service support , Assessment/Plan Active and Suspected Problems (Last Reviewed 06/25/19 @ 09:00 by Jesika Ortiz NP-C) COPD exacerbation (Acute) Acute interstitial pneumonia (Acute) Severe sepsis (Acute) Bronchospasm, acute (Acute) Hyperglycemia due to type 2 diabetes mellitus (Acute) Sinus tachycardia by electrocardiogram (Acute) RECOMMENDATIONS: 1. Continue empiric antimicrobial therapy, pending infectious work-up. 2. Wean FiO2 to maintain oxygen saturations at or above 90%. 3. Obtain repeat arterial blood gas. 4. Transfuse 1 unit of packed red blood cells. 5. Check MRSA screen and respiratory viral panel. 6. Obtain sputum and send for culture. 7. Continue bronchodilators and steroids. 8. Continue PPI therapy. IMPRESSIONS: 1. Acute on chronic combined respiratory failure Concern for underlying COPD exacerbation being precipitated by pulmonary infectious process. The patient signed out of the emergency department yesterday AGAINST MEDICAL ADVICE after inpatient admission was recommended. In addition to the aforementioned, the patient is anemic this morning with a hemoglobin of 7.9 g/dL. The patient has end-stage COPD with a history of frequent exacerbations and a significantly reduced FEV1. I would recommend continuing current supportive measures with broad-spectrum antimicrobials, bronchodilators and steroids. The patient will also be transfused 1 unit of packed red blood cells this morning. Wean FiO2 as tolerated. Plan for daily paired spontaneous awakening and breathing trials beginning tomorrow. Tube feeds can be initiated today from my perspective. 2. Microcytic anemia The patient does have a history of anemia, but did have a hemoglobin this morning of 7.9 g/dL. Given the patient's end-stage obstructive lung disease and issues with oxygenation, he will be transfused 1 unit of packed red blood cells. Check H&H posttransfusion. Start twice daily PPI therapy. 3. Hypercarbic encephalopathy Improved this morning in the setting of invasive mechanical ventilatory support. We will plan to recheck arterial blood gas to ensure appropriate ventilatory support. Continue current supportive measures as noted above. Upon extubation, the patient can be started on AVAPS as he is prescribed a noninvasive ventilator in his home environment. 4. Acute kidney injury Likely prerenal in etiology. Anticipate improvement with gentle fluid hydration. Continue to monitor urine output. No current indication for renal replacement therapy. 5. Heart failure with preserved ejection fraction/obstructive sleep apnea/obesity/coronary artery disease/hypertension/hyperlipidemia Complicates care, management, recovery and prognosis. TIME: 40 minutes of critical care time, independent of procedures, was spent addressing the patient's acute on chronic combined respiratory failure, microcytic anemia, hypercarbic encephalopathy, acute kidney injury, review of all data and collaboration with the care team. ([id number]) Code Visit [id number]: [id number] Critical care first hour
[2019-07-21 07:06] LABS: Allen Test POS; Base Excess 6 mmol/L (-2 to +2); Bicarbonate 32.1 mmol/L (22-26); Blood Gas Specimen Type ART; FI02 50; Mode A-C; O2 Delivery Device Vent; PEEP 5; PO2 146 mmHG (75-100); RR 14; SITE R Radial; SO2 99 % (95-99); Time Given 700; Total Carbon Dioxide 34 mmol/L; Vt 550; pCO2 60.7 mmHg (35-45); pH 7.33 (7.35-7.45)
--- NOTE | 2019-07-21 07:39 | PCM.PROGNOTE ---
Patient Problems: Active and Suspected Problems (Last Reviewed 06/25/19 @ 09:00 by TEVIN Mattson) COPD exacerbation (Acute) Acute interstitial pneumonia (Acute) Severe sepsis (Acute) Bronchospasm, acute (Acute) Hyperglycemia due to type 2 diabetes mellitus (Acute) Sinus tachycardia by electrocardiogram (Acute) Subjective: The patient is a 58-year-old male well-known to me from multiple previous visits who was admitted earlier today with acute exacerbation of COPD. He was intubated in the emergency department and remains on the ventilator. He is alert and responding appropriately to to yes and no questions. Appears in no acut distress. He is c/o a sore throat and LLQ abdominal pain with palpation. His past medical history is significant for diabetes mellitus type 2, hypertension, hyperlipidemia, coronary artery disease with stenting of the RCA in 2005, morbid obesity, very severe stage IV COPD by gold classification, chronic iron deficiency with microcytic anemia, diastolic congestive heart failure, tobacco dependence in remission, chronic steroid dependence (10 mg daily) and obstructive sleep apnea. Day #1 vancomycin and Zosyn All events of the past 24 hours been reviewed. T-max was 101.3 through the night. Current temp is 99.7 and that is a core temp. Blood pressures are on the low side and propofol is been discontinued. The last blood pressure was 85/50. He is currently 99% saturated on the 70% FiO2. Fluid balance is +2868 since admission. Lab was personally reviewed. White blood cell count today is 11.3, down from 19.9 at admission. Hemoglobin has dropped to 7.9 with hydration. Platelets are 357,000, down from 556,000 in addition. ABG today shows a pH of 7.33, PCO2 of 60 and a PO2 of 146 on an FiO2 of 50%. Serum bicarb is elevated at 34, down from 38 at admission. BUN is 24 and the creatinine is 1.43, up from 0.96 and May 2019. Serial troponins are negative. TSH is low at 0.22. Echocardiogram in 2017 showed a preserved ejection fraction of 60% with segmental dysfunction, mild left atrial enlargement, no significant valvular heart disease and transmitral Doppler flow suggestive of impaired relaxation of the left ventricle. Right ventricular systolic pressure could not be estimated due to technical difficulty. - Physical Exam General: Alert, Cooperative, No apparent distress, Well developed, Well nourished HEENT: Atraumatic, PERRLA, EOMI, Normocephalic Oral: Dry Mucosa Neck: No Nodes, Trachea Midline Lungs: Diminished, Wheezes - very mild Cardiovascular: Regular rate, Regular Rhythm, Normal S1, Normal S2, No murmurs, No Gallop Abdomen: Bowel Sounds Present, Soft, Distended - mild but, soft, Tender - in the LLQ but with no guarding with palpation Extremities: No clubbing, No cyanosis, No edema, No Calf Tenderness, Diminished Peripheral Pulses Skin: No rashes Neurological: Cranial nerves II-XII grossly intact, Neuro grossly intact Psych/Mental Status: Appropriate Vital Signs Temp Pulse Resp BP Pulse Ox 99.7 F H 84 14 85/50 L 99 07/21/19 07:00 07/21/19 07:00 07/21/19 07:00 07/21/19 07:00 07/21/19 07:00 Oxygen Flow Rate (L/min) 25 Oxygen Delivery Method Mechanical Ventilator Weight: 234 lb 9.149 oz Body Mass Index (BMI) 34.6 Intake and Output for Last 24 Hours 07/19/19 07/20/19 07/21/19 23:59 23:59 23:59 Intake Total 15.84 / 15.84 3402.11 / 3402.11 Output Total 550 / 550 Balance 15.84 / 15.84 2852.11 / 2852.11 Microbiology Past 72 Hours 07/21/19 03:55 Legionella Antigen - Final Urine Catheter - Rashid 07/21/19 03:55 Streptococcus pneumoniae Antigen (M - Final Urine Catheter - Rashid Laboratory Tests Past 24 Hrs 07/20/19 07/20/19 07/20/19 23:00 23:00 23:00 WBC 19.9 H RBC 4.71 Hgb 10.0 L Hct 37.5 L MCV 79.6 L MCH 21.2 L MCHC 26.7 L RDW Std Deviation 45.7 H RDW Coeff of Asael 16.0 H Plt Count 556 H MPV 9.5 Immature Gran % (Auto) 1.000 H Neut % (Auto) 70.9 H Lymph % (Auto) 14.0 L [place] % (Auto) 13.8 H Eos % (Auto) 0.0 Baso % (Auto) 0.3 Absolute Neuts (auto) 14.2 H Absolute Lymphs (auto) 2.78 Nucleated RBC % 0 Diff Path Review May foll PT 12.9 INR 1.0 APTT 25.1 Specimen Type Sample Site pH Bicarbonate Actual POC Total CO2 Base Excess O2 Saturation O2 % ABG pCO2 ABG pO2 Paco Test VBG pH VBG pO2 VBG O2 Sat (Calc) VBG O2 Content VBG Base Excess POC Mix VBG pCO2 Pt Tmp Respiration Rate O2 Delivery Device Minute Volume Vent Mode Tidal Volume POC PEEP Blood Gas Notified Whom Blood Gas Notified Time Sodium 141 Potassium 4.7 Chloride 101 Carbon Dioxide 38.0 H Anion Gap 2 L BUN 21 H Creatinine 1.34 H Estim Creat Clear Calc 61.29 Est GFR (MDRD) Af Amer 70 Est GFR (MDRD) Non-Af 58 L BUN/Creatinine Ratio 15.7 Glucose 187 H Lactic Acid Calcium 8.9 Phosphorus Magnesium Total Bilirubin 0.20 AST 22 ALT 26 Alkaline Phosphatase 111 Troponin I < 0.015 B-Natriuretic Peptide Total Protein 8.2 Albumin 3.8 Globulin 4.4 H Albumin/Globulin Ratio 0.9 TSH Urine Color Urine Clarity Urine pH Ur Specific [place] Urine Protein Urine Glucose (UA) Urine Ketones Urine Occult Blood Urine Nitrite Urine Bilirubin Urine Urobilinogen Ur Leukocyte Esterase Urine RBC Urine WBC Ur Squamous Epith Cells Ur Transition Epith Cell Urine Bacteria Hyaline Casts Fine Granular Casts Urine Mucus 07/20/19 07/21/19 07/21/19 23:40 00:22 02:05 WBC RBC Hgb Hct MCV MCH MCHC RDW Std Deviation RDW Coeff of Asael Plt Count MPV Immature Gran % (Auto) Neut % (Auto) Lymph % (Auto) [place] % (Auto) Eos % (Auto) Baso % (Auto) Absolute Neuts (auto) Absolute Lymphs (auto) Nucleated RBC % Diff Path Review PT INR APTT Specimen Type YULISSA Sample Site OTHER pH Bicarbonate Actual POC Total CO2 Base Excess O2 Saturation O2 % 100 ABG pCO2 ABG pO2 Paco Test VBG pH 7.12 L* VBG pO2 34 VBG O2 Sat (Calc) 42 L VBG O2 Content 40 H VBG Base Excess 7 H POC Mix VBG pCO2 Pt Tmp 113.2 H* Respiration Rate 14 O2 Delivery Device Vent Minute Volume 6.00 Vent Mode Tidal Volume 450 POC PEEP 5 Blood Gas Notified Whom ED Blood Gas Notified Time 2355 Sodium Potassium Chloride Carbon Dioxide Anion Gap BUN Creatinine Estim Creat Clear Calc Est GFR (MDRD) Af Amer Est GFR (MDRD) Non-Af BUN/Creatinine Ratio Glucose Lactic Acid 1.4 Calcium Phosphorus Magnesium 2.2 Total Bilirubin AST ALT Alkaline Phosphatase Troponin I B-Natriuretic Peptide Total Protein Albumin Globulin Albumin/Globulin Ratio TSH Urine Color Urine Clarity Urine pH Ur Specific [place] Urine Protein Urine Glucose (UA) Urine Ketones Urine Occult Blood Urine Nitrite Urine Bilirubin Urine Urobilinogen Ur Leukocyte Esterase Urine RBC Urine WBC Ur Squamous Epith Cells Ur Transition Epith Cell Urine Bacteria Hyaline Casts Fine Granular Casts Urine Mucus 07/21/19 07/21/19 07/21/19 03:30 03:30 03:30 WBC 11.3 H RBC 3.70 L Hgb 7.9 L Hct 29.6 L MCV 80.0 MCH 21.4 L MCHC 26.7 L RDW Std Deviation 45.9 H RDW Coeff of Asael 15.8 H Plt Count 357 MPV 9.1 Immature Gran % (Auto) 0.800 Neut % (Auto) 90.2 H Lymph % (Auto) 2.9 L [place] % (Auto) 6.0 Eos % (Auto) 0.0 Baso % (Auto) 0.1 Absolute Neuts (auto) 10.1 H Absolute Lymphs (auto) 0.33 L Nucleated RBC % 0 Diff Path Review PT INR APTT Specimen Type Sample Site pH Bicarbonate Actual POC Total CO2 Base Excess O2 Saturation O2 % ABG pCO2 ABG pO2 Paco Test VBG pH VBG pO2 VBG O2 Sat (Calc) VBG O2 Content VBG Base Excess POC Mix VBG pCO2 Pt Tmp Respiration Rate O2 Delivery Device Minute Volume Vent Mode Tidal Volume POC PEEP Blood Gas Notified Whom Blood Gas Notified Time Sodium 144 Potassium 4.7 Chloride 106 Carbon Dioxide 34.0 H Anion Gap 4 L BUN 24 H Creatinine 1.43 H Estim Creat Clear Calc 57.43 Est GFR (MDRD) Af Amer 65 Est GFR (MDRD) Non-Af 54 L BUN/Creatinine Ratio 16.8 Glucose 146 H Lactic Acid Calcium 7.6 L Phosphorus 2.7 Magnesium Total Bilirubin AST ALT Alkaline Phosphatase Troponin I B-Natriuretic Peptide Total Protein Albumin Globulin Albumin/Globulin Ratio TSH 0.22 L Urine Color Urine Clarity Urine pH Ur Specific [place] Urine Protein Urine Glucose (UA) Urine Ketones Urine Occult Blood Urine Nitrite Urine Bilirubin Urine Urobilinogen Ur Leukocyte Esterase Urine RBC Urine WBC Ur Squamous Epith Cells Ur Transition Epith Cell Urine Bacteria Hyaline Casts Fine Granular Casts Urine Mucus 07/21/19 07/21/19 07/21/19 03:30 03:30 03:30 WBC RBC Hgb Hct MCV MCH MCHC RDW Std Deviation RDW Coeff of Asael Plt Count MPV Immature Gran % (Auto) Neut % (Auto) Lymph % (Auto) [place] % (Auto) Eos % (Auto) Baso % (Auto) Absolute Neuts (auto) Absolute Lymphs (auto) Nucleated RBC % Diff Path Review PT 13.6 INR 1.1 APTT 25.1 Specimen Type Sample Site pH Bicarbonate Actual POC Total CO2 Base Excess O2 Saturation O2 % ABG pCO2 ABG pO2 Paco Test VBG pH VBG pO2 VBG O2 Sat (Calc) VBG O2 Content VBG Base Excess POC Mix VBG pCO2 Pt Tmp Respiration Rate O2 Delivery Device Minute Volume Vent Mode Tidal Volume POC PEEP Blood Gas Notified Whom Blood Gas Notified Time Sodium Potassium Chloride Carbon Dioxide Anion Gap BUN Creatinine Estim Creat Clear Calc Est GFR (MDRD) Af Amer Est GFR (MDRD) Non-Af BUN/Creatinine Ratio Glucose Lactic Acid Calcium Phosphorus Magnesium Total Bilirubin AST ALT Alkaline Phosphatase Troponin I 0.019 B-Natriuretic Peptide 38.5 Total Protein Albumin Globulin Albumin/Globulin Ratio TSH Urine Color Urine Clarity Urine pH Ur Specific [place] Urine Protein Urine Glucose (UA) Urine Ketones Urine Occult Blood Urine Nitrite Urine Bilirubin Urine Urobilinogen Ur Leukocyte Esterase Urine RBC Urine WBC Ur Squamous Epith Cells Ur Transition Epith Cell Urine Bacteria Hyaline Casts Fine Granular Casts Urine Mucus 07/21/19 07/21/19 07/21/19 03:55 05:55 07:01 WBC RBC Hgb Hct MCV MCH MCHC RDW Std Deviation RDW Coeff of Asael Plt Count MPV Immature Gran % (Auto) Neut % (Auto) Lymph % (Auto) [place] % (Auto) Eos % (Auto) Baso % (Auto) Absolute Neuts (auto) Absolute Lymphs (auto) Nucleated RBC % Diff Path Review PT INR APTT Specimen Type ART Sample Site R Radial pH 7.33 L Bicarbonate Actual 32.1 H POC Total CO2 34 Base Excess 6 H O2 Saturation 99 O2 % 50 ABG pCO2 60.7 H ABG pO2 146 H Paco Test POS VBG pH VBG pO2 VBG O2 Sat (Calc) VBG O2 Content VBG Base Excess POC Mix VBG pCO2 Pt Tmp Respiration Rate 14 O2 Delivery Device Vent Minute Volume 8.00 Vent Mode A-C Tidal Volume 550 POC PEEP 5 Blood Gas Notified Whom ICU Blood Gas Notified Time 700 Sodium Potassium Chloride Carbon Dioxide Anion Gap BUN Creatinine Estim Creat Clear Calc Est GFR (MDRD) Af Amer Est GFR (MDRD) Non-Af BUN/Creatinine Ratio Glucose Lactic Acid Calcium Phosphorus Magnesium Total Bilirubin AST ALT Alkaline Phosphatase Troponin I 0.015 B-Natriuretic Peptide Total Protein Albumin Globulin Albumin/Globulin Ratio TSH Urine Color Yellow Urine Clarity Clear Urine pH 5.0 Ur Specific [place] 1.020 Urine Protein 30 H Urine Glucose (UA) Normal Urine Ketones Negative Urine Occult Blood 150 H Urine Nitrite Negative Urine Bilirubin Negative Urine Urobilinogen Normal Ur Leukocyte Esterase Negative Urine RBC 0-5 SEEN Urine WBC 0-5 SEEN Ur Squamous Epith Cells 0 SEEN Ur Transition Epith Cell 0-5 SEEN Urine Bacteria 0 SEEN Hyaline Casts 0-5 SEEN Fine Granular Casts 0-5 SEEN Urine Mucus 0 SEEN POC Glucose 07/21/19 05:55 POC Glucose 146 H Medical Necessity - Tobacco Use Smoking Status: Former smoker Tobacco Use: Cigarettes Assessment/Plan All Active Problems (Last Reviewed 06/25/19 @ 09:00 by Jesika Ortiz, [id number]) COPD exacerbation (Acute) Sepsis (Resolved) Acute interstitial pneumonia (Acute) Severe sepsis (Acute) Bronchospasm, acute (Acute) Hyperglycemia due to type 2 diabetes mellitus (Acute) Sinus tachycardia by electrocardiogram (Acute) Acute and chronic respiratory failure with hypoxia (Acute) Acute exacerbation of COPD with asthma (Acute) History of rotator cuff surgery (Resolved) Anxiety (Acute) Healthcare-associated pneumonia (Resolved) Chronic respiratory failure with hypoxia and hypercapnia (Acute) COPD with acute exacerbation (Acute) Acute kidney injury (Resolved) Nicotine dependence (Resolved) Sepsis (Resolved) Impressions 1. acute exacerbation COPD presumed due to infection - infectious w/u in progress. Sputum from the ED visit on 07/19/19 grew normal respiratory catrachito. Respiratory panel pending. Legionella and streptococcal antigens in the urine are pending. Blood cultures and urine culture are pending. Sputum culture taken from the ET tube is pending. LA nl at admission. Continue the current antibiotics 2. Acute combined respiratory failure on chronic combined respiratory failure -oxygen requirement is usually 4 to 6 L/min. On a ventilator with no plan to try and extubate yet. Appears comfortable off Propofol....DC'd due to hypotension. 3. Microcytic anemia - check iron studies and transfuse 1 unit PRBC's today. He has severe COPD and requires a higher HGB to maximize O2 carrying capabilities. Where is the chronic blood loss coming from? 4. chronic steroid use-10 mg daily. On high-dose steroids currently for COPD exacerbation 5. Stage IV very severe COPD by gold classification - continue aerosols and steroids 6. Obstructive sleep apnea 7. Diabetes mellitus type 2 8. History of diastolic congestive heart failure with preserved ejection fraction 9. Hyperlipidemia 10. Morbid obesity 11. Acute kidney injury-more likely than not secondary to intravascular volume depletion. 12. Coronary artery disease with history of stent to the RCA in 2005 13. Hypertension 14. Tobacco dependence in remission Code Visit Inpatient E&M: 29935 Subs Hosp L3
[2019-07-21] MEDS: fentaNYL drip 100 ML 10 MCG IV ×2 (09:16→20:00)
[2019-07-21] MEDS: Enoxaparin 40 MG/0.4 ML Syringe SC (09:38)
[2019-07-21] MEDS: Chlorhexidine 15 ML PO ×2 (09:40→21:37)
[2019-07-21 09:57] LABS: Ferritin 18 ng/mL (26-388); Free T3 1.5 pg/mL (2.18-3.98); Iron 9 ug/dL (65-175); Iron Binding Capacity,Total 283 ug/dL (250-450); PERCENT IRON SATURATION 3.2 % (15.0-55.0); T4 Free Direct 1.26 ng/dL (0.76-1.46)
[2019-07-21 10:12] LABS: Hemoglobin A1c 6.2 % (4.2-6.3)
[2019-07-21 10:59] LABS: M R Staph aureus DNA By PCR Negative (Negative); Probe Check PASS; Specimen Processing Control PASS
--- NOTE | 2019-07-21 11:01 | CM.UR ---
ERIK CM ASSESSMENT Patient is currently intubated and no family present. I had heard is going to spend some time with grandchildren and will be in later. Patient had previously been admitted back in December with ERIK GUTIERREZ assmt completed. Called at this time and went over previously information. Confirmed and updated information as appropriate. PCP: Tiff Specialists: Stephy Mendez. [facility] [place] [employer] [employer] to lung specialist. States is in the process of getting on lung transplat list. Preferred Pharmacy: [facility] [place] Insurance: [facility] Prescription Benefit: Yes. States no copays that she is aware of. Living Will/HPOA: State he never completed it even though he was previously given all the information. LNOK: , 2 daughters and 1 son. Living Arrangements: Lives [facility] with his , oldest daughter, and 2 grandchildren. Younger daughter lives across the street and son lives in [place]. Is independent with most ADL's, but does assist with bathing. states he has been managing his own medications now. She does most neon installer such as cooking and cleaning. Transportation: Pt states drives self and states no transportation concerns at this time. also drives. DME: Has cane, Trilogy, oxygen, nebulizer, power chair and glucometer. Resp equipment from [facility]. Pt states no need for further DME at this time. HHC/SNF: No hx of either. CM to follow for discharge planning/needs. PLAN: TBD
[2019-07-21] MEDS: Albuterol 2.5 MG/3 ML VIAL.NEB. INHALATION (12:46)
[2019-07-21 12:51] LABS: Bedside Glucose 146 mg/dL (70-110)
[2019-07-21] MEDS: 0.9% Normal Saline 1,000 ML 60 ML IV (15:25)
[2019-07-21] MEDS: Vital AF 1.2 Cal Liq 1,500 ML 60 ML GT (15:37)
[2019-07-21 17:06] LABS: Bedside Glucose 113 mg/dL (70-110)
[2019-07-21 21:45] LABS: Bedside Glucose 140 mg/dL (70-110)
[2019-07-22] VITALS (49 sets, daily range): BP systolic 110–154; BP diastolic 58–89; PULSE 74–121; RESP 12–24; TEMP 36.8–37.6; O2SAT 86–100
[2019-07-22] MEDS: Ipratropium/Albuterol Sulfate 3 ML AMPUL.NEB INHALATION ×6 (02:29→22:16)
[2019-07-22 04:10] LABS: Hematocrit 29.9 % (40-54); Hemoglobin 8.4 g/dL (13.0-16.5); Mean Corp Hgb Conc 28.1 g/dL (32-36); Mean Corpuscular Hgb 22.1 pg (27.0-32.0); Mean Corpuscular Volume 78.7 fL (80-94); Platelet Count 346 K/mm3 (150-450); RBC Distribution Width CV 16.4 % (11.6-14.6); RBC Distribution Width SD 46.8 fl (35.1-43.9); White Blood Count 11.3 K/mm3 (4.4-11.0)
[2019-07-22 04:33] LABS: Anion Gap 4 (5-15); BUN 21 mg/dL (7-18); BUN/Creat Ratio 21.5 RATIO (10-20); Calcium,Total 7.6 mg/dL (8.5-10.1); Chloride 107 mmol/L (98-107); Cholesterol 102 mg/dL (200); Creatinine, Serum 0.98 mg/dL (0.70-1.30); EST Glomerular Filtration Rate 83 mL/min (>60); Est Glom Filt Rate - Afr Amer 101 mL/min (>60); Glucose 151 mg/dL (74-106); High Density Lipoprotein 39 mg/dL; Magnesium 2.2 mg/dL (1.6-2.6); Phosphorus 1.9 mg/dL (2.5-4.9); Potassium 3.9 mmol/L (3.5-5.1); Sodium Level 142 mmol/L (136-145); Triglycerides 106 mg/dL; Very Low Density Lipoprotein 21 mg/dL (5-40)
[2019-07-22 06:10] LABS: Bedside Glucose 126 mg/dL (70-110)
--- NOTE | 2019-07-22 06:32 | PN_ITS ---
Subjective: The patient was seen and examined at the bedside this morning. Events from the last 24 hours have been reviewed. The patient is currently afebrile, hemodynamically stable and maintaining appropriate oxygen saturations on spontaneous mode of mechanical ventilation with an FiO2 requirement of 35%. No overnight issues were noted by the nursing staff. The patient has done well this morning on his spontaneous breathing trial. He is currently alert and appropriately interactive. Hemoglobin is stable at 8.4 g/dL this morning. Objective: The patient's most recent lab work, culture data and imaging studies have all been personally reviewed. The patient has a baseline 3 L/min supplemental oxygen requirement with exertion based upon 6-minute walk test completed in June 2017. 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 The patient has an FEV1 of 18% of predicted. The patient also has known obstructive sleep apnea, for which it was recommended that the patient be on bilevel with a pressure support of 15/11, according to polysomnogram last completed in 2015. Surface echocardiogram revealed normal LV size and function with an ejection fraction of 65%. Strep and urine Legionella antigens were both negative. Respiratory viral panel was negative. Sputum culture is currently pending. General: - - Currently intubated and mechanically ventilated. Doing well on spontaneous mode of mechanical ventilation. HEENT: Atraumatic, PERRLA, Normocephalic Oral: No Gingival or Mucosal Lesions/ Ulcerations, - - Endotracheal and OG tubes remain in place. Neck: Supple, No Nodes, Trachea Midline Lungs: No rhonchi, No wheeze, No rales, Diminished Cardiovascular: Regular rate, Regular Rhythm, Normal S1, Normal S2, No murmurs Abdomen: Bowel Sounds Present, Soft, Non Tender, Obese Extremities: No clubbing, No cyanosis, No edema Skin: No breakdown Musculoskeletal: No Tenderness to Palpation of Joints or Extremities, No Muscle Wasting Lymphatic: No Cervical, Supraclavicular, or Inguinal Adenopathy Neurological: Cranial nerves II-XII grossly intact, Neuro grossly intact, - - Alert and following commands appropriately. Vital Signs Temp Pulse Resp BP Pulse Ox 99.3 F H 79 16 126/69 H 96 07/22/19 04:00 07/22/19 06:00 07/22/19 06:00 07/22/19 06:00 07/22/19 06:00 Oxygen Flow Rate (L/min) 25 Oxygen Delivery Method Mechanical Ventilator Weight: 243 lb 13.3 oz Body Mass Index (BMI) 34.6 Intake and Output for Last 24 Hours 07/20/19 07/21/19 07/22/19 23:59 23:59 23:59 Intake Total 15.84 / 15.84 6582.78 / 6910.78 1669 / 1669 Output Total 1800 / 2150 700 / 700 Balance 15.84 / 15.84 4782.78 / 4760.78 969 / 969 Labs (Last 48 Hours) 07/20/19 07/20/19 07/20/19 23:00 23:00 23:00 WBC 19.9 H RBC 4.71 Hgb 10.0 L Hct 37.5 L MCV 79.6 L MCH 21.2 L MCHC 26.7 L RDW Std Deviation 45.7 H RDW Coeff of Asael 16.0 H Plt Count 556 H MPV 9.5 Immature Gran % (Auto) 1.000 H Neut % (Auto) 70.9 H Lymph % (Auto) 14.0 L [place] % (Auto) 13.8 H Eos % (Auto) 0.0 Baso % (Auto) 0.3 Absolute Neuts (auto) 14.2 H Absolute Lymphs (auto) 2.78 Nucleated RBC % 0 Diff Path Review February foll PT 12.9 INR 1.0 APTT 25.1 Specimen Type Sample Site pH Bicarbonate Actual POC Total CO2 Base Excess O2 Saturation O2 % ABG pCO2 ABG pO2 Paco Test VBG pH VBG pO2 VBG O2 Sat (Calc) VBG O2 Content VBG Base Excess POC Mix VBG pCO2 Pt Tmp Respiration Rate O2 Delivery Device Minute Volume Vent Mode Tidal Volume POC PEEP Blood Gas Notified Whom Blood Gas Notified Time Sodium 141 Potassium 4.7 Chloride 101 Carbon Dioxide 38.0 H Anion Gap 2 L BUN 21 H Creatinine 1.34 H Estim Creat Clear Calc 61.29 Est GFR (MDRD) Af Amer 70 Est GFR (MDRD) Non-Af 58 L BUN/Creatinine Ratio 15.7 Glucose 187 H Hemoglobin A1c Lactic Acid Calcium 8.9 Phosphorus Magnesium Iron TIBC Iron Saturation Ferritin Total Bilirubin 0.20 AST 22 ALT 26 Alkaline Phosphatase 111 Troponin I < 0.015 B-Natriuretic Peptide Total Protein 8.2 Albumin 3.8 Globulin 4.4 H Albumin/Globulin Ratio 0.9 Triglycerides Cholesterol LDL Cholesterol VLDL Cholesterol HDL Cholesterol TSH Free T4 Free T3 pg/dL Urine Color Urine Clarity Urine pH Ur Specific [place] Urine Protein Urine Glucose (UA) Urine Ketones Urine Occult Blood Urine Nitrite Urine Bilirubin Urine Urobilinogen Ur Leukocyte Esterase Urine RBC Urine WBC Ur Squamous Epith Cells Ur Transition Epith Cell Urine Bacteria Hyaline Casts Fine Granular Casts Urine Mucus MRSA (PCR) POC Glucose Blood Type Antibody Screen Crossmatch 07/20/19 07/21/19 07/21/19 23:40 00:22 02:05 WBC RBC Hgb Hct MCV MCH MCHC RDW Std Deviation RDW Coeff of Asael Plt Count MPV Immature Gran % (Auto) Neut % (Auto) Lymph % (Auto) [place] % (Auto) Eos % (Auto) Baso % (Auto) Absolute Neuts (auto) Absolute Lymphs (auto) Nucleated RBC % Diff Path Review PT INR APTT Specimen Type YULISSA Sample Site OTHER pH Bicarbonate Actual POC Total CO2 Base Excess O2 Saturation O2 % 100 ABG pCO2 ABG pO2 Paco Test VBG pH 7.12 L* VBG pO2 34 VBG O2 Sat (Calc) 42 L VBG O2 Content 40 H VBG Base Excess 7 H POC Mix VBG pCO2 Pt Tmp 113.2 H* Respiration Rate 14 O2 Delivery Device Vent Minute Volume 6.00 Vent Mode Tidal Volume 450 POC PEEP 5 Blood Gas Notified Whom ED Blood Gas Notified Time 2355 Sodium Potassium Chloride Carbon Dioxide Anion Gap BUN Creatinine Estim Creat Clear Calc Est GFR (MDRD) Af Amer Est GFR (MDRD) Non-Af BUN/Creatinine Ratio Glucose Hemoglobin A1c Lactic Acid 1.4 Calcium Phosphorus Magnesium 2.2 Iron TIBC Iron Saturation Ferritin Total Bilirubin AST ALT Alkaline Phosphatase Troponin I B-Natriuretic Peptide Total Protein Albumin Globulin Albumin/Globulin Ratio Triglycerides Cholesterol LDL Cholesterol VLDL Cholesterol HDL Cholesterol TSH Free T4 Free T3 pg/dL Urine Color Urine Clarity Urine pH Ur Specific [place] Urine Protein Urine Glucose (UA) Urine Ketones Urine Occult Blood Urine Nitrite Urine Bilirubin Urine Urobilinogen Ur Leukocyte Esterase Urine RBC Urine WBC Ur Squamous Epith Cells Ur Transition Epith Cell Urine Bacteria Hyaline Casts Fine Granular Casts Urine Mucus MRSA (PCR) POC Glucose Blood Type Antibody Screen Crossmatch 07/21/19 07/21/19 07/21/19 03:30 03:30 03:30 WBC 11.3 H RBC 3.70 L Hgb 7.9 L Hct 29.6 L MCV 80.0 MCH 21.4 L MCHC 26.7 L RDW Std Deviation 45.9 H RDW Coeff of Asael 15.8 H Plt Count 357 MPV 9.1 Immature Gran % (Auto) 0.800 Neut % (Auto) 90.2 H Lymph % (Auto) 2.9 L [place] % (Auto) 6.0 Eos % (Auto) 0.0 Baso % (Auto) 0.1 Absolute Neuts (auto) 10.1 H Absolute Lymphs (auto) 0.33 L Nucleated RBC % 0 Diff Path Review PT INR APTT Specimen Type Sample Site pH Bicarbonate Actual POC Total CO2 Base Excess O2 Saturation O2 % ABG pCO2 ABG pO2 Paco Test VBG pH VBG pO2 VBG O2 Sat (Calc) VBG O2 Content VBG Base Excess POC Mix VBG pCO2 Pt Tmp Respiration Rate O2 Delivery Device Minute Volume Vent Mode Tidal Volume POC PEEP Blood Gas Notified Whom Blood Gas Notified Time Sodium 144 Potassium 4.7 Chloride 106 Carbon Dioxide 34.0 H Anion Gap 4 L BUN 24 H Creatinine 1.43 H Estim Creat Clear Calc 57.43 Est GFR (MDRD) Af Amer 65 Est GFR (MDRD) Non-Af 54 L BUN/Creatinine Ratio 16.8 Glucose 146 H Hemoglobin A1c Lactic Acid Calcium 7.6 L Phosphorus 2.7 Magnesium Iron TIBC Iron Saturation Ferritin Total Bilirubin AST ALT Alkaline Phosphatase Troponin I B-Natriuretic Peptide Total Protein Albumin Globulin Albumin/Globulin Ratio Triglycerides Cholesterol LDL Cholesterol VLDL Cholesterol HDL Cholesterol TSH 0.22 L Free T4 Free T3 pg/dL Urine Color Urine Clarity Urine pH Ur Specific [place] Urine Protein Urine Glucose (UA) Urine Ketones Urine Occult Blood Urine Nitrite Urine Bilirubin Urine Urobilinogen Ur Leukocyte Esterase Urine RBC Urine WBC Ur Squamous Epith Cells Ur Transition Epith Cell Urine Bacteria Hyaline Casts Fine Granular Casts Urine Mucus MRSA (PCR) POC Glucose Blood Type Antibody Screen Crossmatch 07/21/19 07/21/19 07/21/19 03:30 03:30 03:30 WBC RBC Hgb Hct MCV MCH MCHC RDW Std Deviation RDW Coeff of Asael Plt Count MPV Immature Gran % (Auto) Neut % (Auto) Lymph % (Auto) [place] % (Auto) Eos % (Auto) Baso % (Auto) Absolute Neuts (auto) Absolute Lymphs (auto) Nucleated RBC % Diff Path Review PT 13.6 INR 1.1 APTT 25.1 Specimen Type Sample Site pH Bicarbonate Actual POC Total CO2 Base Excess O2 Saturation O2 % ABG pCO2 ABG pO2 Paco Test VBG pH VBG pO2 VBG O2 Sat (Calc) VBG O2 Content VBG Base Excess POC Mix VBG pCO2 Pt Tmp Respiration Rate O2 Delivery Device Minute Volume Vent Mode Tidal Volume POC PEEP Blood Gas Notified Whom Blood Gas Notified Time Sodium Potassium Chloride Carbon Dioxide Anion Gap BUN Creatinine Estim Creat Clear Calc Est GFR (MDRD) Af Amer Est GFR (MDRD) Non-Af BUN/Creatinine Ratio Glucose Hemoglobin A1c Lactic Acid Calcium Phosphorus Magnesium Iron TIBC Iron Saturation Ferritin Total Bilirubin AST ALT Alkaline Phosphatase Troponin I 0.019 B-Natriuretic Peptide 38.5 Total Protein Albumin Globulin Albumin/Globulin Ratio Triglycerides Cholesterol LDL Cholesterol VLDL Cholesterol HDL Cholesterol TSH Free T4 Free T3 pg/dL Urine Color Urine Clarity Urine pH Ur Specific [place] Urine Protein Urine Glucose (UA) Urine Ketones Urine Occult Blood Urine Nitrite Urine Bilirubin Urine Urobilinogen Ur Leukocyte Esterase Urine RBC Urine WBC Ur Squamous Epith Cells Ur Transition Epith Cell Urine Bacteria Hyaline Casts Fine Granular Casts Urine Mucus MRSA (PCR) POC Glucose Blood Type Antibody Screen Crossmatch 07/21/19 07/21/19 07/21/19 03:55 05:55 05:55 WBC RBC Hgb Hct MCV MCH MCHC RDW Std Deviation RDW Coeff of Asael Plt Count MPV Immature Gran % (Auto) Neut % (Auto) Lymph % (Auto) [place] % (Auto) Eos % (Auto) Baso % (Auto) Absolute Neuts (auto) Absolute Lymphs (auto) Nucleated RBC % Diff Path Review PT INR APTT Specimen Type Sample Site pH Bicarbonate Actual POC Total CO2 Base Excess O2 Saturation O2 % ABG pCO2 ABG pO2 Paco Test VBG pH VBG pO2 VBG O2 Sat (Calc) VBG O2 Content VBG Base Excess POC Mix VBG pCO2 Pt Tmp Respiration Rate O2 Delivery Device Minute Volume Vent Mode Tidal Volume POC PEEP Blood Gas Notified Whom Blood Gas Notified Time Sodium Potassium Chloride Carbon Dioxide Anion Gap BUN Creatinine Estim Creat Clear Calc Est GFR (MDRD) Af Amer Est GFR (MDRD) Non-Af BUN/Creatinine Ratio Glucose Hemoglobin A1c Lactic Acid Calcium Phosphorus Magnesium Iron TIBC Iron Saturation Ferritin Total Bilirubin AST ALT Alkaline Phosphatase Troponin I 0.015 B-Natriuretic Peptide Total Protein Albumin Globulin Albumin/Globulin Ratio Triglycerides Cholesterol LDL Cholesterol VLDL Cholesterol HDL Cholesterol TSH Free T4 Free T3 pg/dL Urine Color Yellow Urine Clarity Clear Urine pH 5.0 Ur Specific [place] 1.020 Urine Protein 30 H Urine Glucose (UA) Normal Urine Ketones Negative Urine Occult Blood 150 H Urine Nitrite Negative Urine Bilirubin Negative Urine Urobilinogen Normal Ur Leukocyte Esterase Negative Urine RBC 0-5 SEEN Urine WBC 0-5 SEEN Ur Squamous Epith Cells 0 SEEN Ur Transition Epith Cell 0-5 SEEN Urine Bacteria 0 SEEN Hyaline Casts 0-5 SEEN Fine Granular Casts 0-5 SEEN Urine Mucus 0 SEEN MRSA (PCR) POC Glucose 146 H Blood Type Antibody Screen Crossmatch 07/21/19 07/21/19 07/21/19 07:01 09:00 09:00 WBC RBC Hgb Hct MCV MCH MCHC RDW Std Deviation RDW Coeff of Asael Plt Count MPV Immature Gran % (Auto) Neut % (Auto) Lymph % (Auto) [place] % (Auto) Eos % (Auto) Baso % (Auto) Absolute Neuts (auto) Absolute Lymphs (auto) Nucleated RBC % Diff Path Review PT INR APTT Specimen Type ART Sample Site R Radial pH 7.33 L Bicarbonate Actual 32.1 H POC Total CO2 34 Base Excess 6 H O2 Saturation 99 O2 % 50 ABG pCO2 60.7 H ABG pO2 146 H Paco Test POS VBG pH VBG pO2 VBG O2 Sat (Calc) VBG O2 Content VBG Base Excess POC Mix VBG pCO2 Pt Tmp Respiration Rate 14 O2 Delivery Device Vent Minute Volume 8.00 Vent Mode A-C Tidal Volume 550 POC PEEP 5 Blood Gas Notified Whom ICU Blood Gas Notified Time 700 Sodium Potassium Chloride Carbon Dioxide Anion Gap BUN Creatinine Estim Creat Clear Calc Est GFR (MDRD) Af Amer Est GFR (MDRD) Non-Af BUN/Creatinine Ratio Glucose Hemoglobin A1c Lactic Acid Calcium Phosphorus Magnesium Iron TIBC Iron Saturation Ferritin Total Bilirubin AST ALT Alkaline Phosphatase Troponin I < 0.015 B-Natriuretic Peptide Total Protein Albumin Globulin Albumin/Globulin Ratio Triglycerides Cholesterol LDL Cholesterol VLDL Cholesterol HDL Cholesterol TSH Free T4 Free T3 pg/dL Urine Color Urine Clarity Urine pH Ur Specific [place] Urine Protein Urine Glucose (UA) Urine Ketones Urine Occult Blood Urine Nitrite Urine Bilirubin Urine Urobilinogen Ur Leukocyte Esterase Urine RBC Urine WBC Ur Squamous Epith Cells Ur Transition Epith Cell Urine Bacteria Hyaline Casts Fine Granular Casts Urine Mucus MRSA (PCR) POC Glucose Blood Type A POSITIVE Antibody Screen NEGATIVE Crossmatch See Detail 07/21/19 07/21/19 07/21/19 09:00 09:00 09:00 WBC RBC Hgb Hct MCV MCH MCHC RDW Std Deviation RDW Coeff of Asael Plt Count MPV Immature Gran % (Auto) Neut % (Auto) Lymph % (Auto) [place] % (Auto) Eos % (Auto) Baso % (Auto) Absolute Neuts (auto) Absolute Lymphs (auto) Nucleated RBC % Diff Path Review PT INR APTT Specimen Type Sample Site pH Bicarbonate Actual POC Total CO2 Base Excess O2 Saturation O2 % ABG pCO2 ABG pO2 Paco Test VBG pH VBG pO2 VBG O2 Sat (Calc) VBG O2 Content VBG Base Excess POC Mix VBG pCO2 Pt Tmp Respiration Rate O2 Delivery Device Minute Volume Vent Mode Tidal Volume POC PEEP Blood Gas Notified Whom Blood Gas Notified Time Sodium Potassium Chloride Carbon Dioxide Anion Gap BUN Creatinine Estim Creat Clear Calc Est GFR (MDRD) Af Amer Est GFR (MDRD) Non-Af BUN/Creatinine Ratio Glucose Hemoglobin A1c 6.2 Lactic Acid Calcium Phosphorus Magnesium Iron 9 L TIBC 283 Iron Saturation 3.2 L Ferritin 18 L Total Bilirubin AST ALT Alkaline Phosphatase Troponin I B-Natriuretic Peptide Total Protein Albumin Globulin Albumin/Globulin Ratio Triglycerides Cholesterol LDL Cholesterol VLDL Cholesterol HDL Cholesterol TSH Free T4 1.26 Free T3 pg/dL 1.5 L Urine Color Urine Clarity Urine pH Ur Specific [place] Urine Protein Urine Glucose (UA) Urine Ketones Urine Occult Blood Urine Nitrite Urine Bilirubin Urine Urobilinogen Ur Leukocyte Esterase Urine RBC Urine WBC Ur Squamous Epith Cells Ur Transition Epith Cell Urine Bacteria Hyaline Casts Fine Granular Casts Urine Mucus MRSA (PCR) Negative POC Glucose Blood Type Antibody Screen Crossmatch 07/21/19 07/21/19 07/21/19 12:07 16:59 21:37 WBC RBC Hgb Hct MCV MCH MCHC RDW Std Deviation RDW Coeff of Asael Plt Count MPV Immature Gran % (Auto) Neut % (Auto) Lymph % (Auto) [place] % (Auto) Eos % (Auto) Baso % (Auto) Absolute Neuts (auto) Absolute Lymphs (auto) Nucleated RBC % Diff Path Review PT INR APTT Specimen Type Sample Site pH Bicarbonate Actual POC Total CO2 Base Excess O2 Saturation O2 % ABG pCO2 ABG pO2 Paco Test VBG pH VBG pO2 VBG O2 Sat (Calc) VBG O2 Content VBG Base Excess POC Mix VBG pCO2 Pt Tmp Respiration Rate O2 Delivery Device Minute Volume Vent Mode Tidal Volume POC PEEP Blood Gas Notified Whom Blood Gas Notified Time Sodium Potassium Chloride Carbon Dioxide Anion Gap BUN Creatinine Estim Creat Clear Calc Est GFR (MDRD) Af Amer Est GFR (MDRD) Non-Af BUN/Creatinine Ratio Glucose Hemoglobin A1c Lactic Acid Calcium Phosphorus Magnesium Iron TIBC Iron Saturation Ferritin Total Bilirubin AST ALT Alkaline Phosphatase Troponin I B-Natriuretic Peptide Total Protein Albumin Globulin Albumin/Globulin Ratio Triglycerides Cholesterol LDL Cholesterol VLDL Cholesterol HDL Cholesterol TSH Free T4 Free T3 pg/dL Urine Color Urine Clarity Urine pH Ur Specific [place] Urine Protein Urine Glucose (UA) Urine Ketones Urine Occult Blood Urine Nitrite Urine Bilirubin Urine Urobilinogen Ur Leukocyte Esterase Urine RBC Urine WBC Ur Squamous Epith Cells Ur Transition Epith Cell Urine Bacteria Hyaline Casts Fine Granular Casts Urine Mucus MRSA (PCR) POC Glucose 146 H 113 H 140 H Blood Type Antibody Screen Crossmatch 07/22/19 07/22/19 07/22/19 04:00 04:00 05:58 WBC 11.3 H RBC 3.80 L Hgb 8.4 L Hct 29.9 L MCV 78.7 L MCH 22.1 L MCHC 28.1 L RDW Std Deviation 46.8 H RDW Coeff of Asael 16.4 H Plt Count 346 MPV 9.0 Immature Gran % (Auto) Neut % (Auto) Lymph % (Auto) [place] % (Auto) Eos % (Auto) Baso % (Auto) Absolute Neuts (auto) Absolute Lymphs (auto) Nucleated RBC % Diff Path Review PT INR APTT Specimen Type Sample Site pH Bicarbonate Actual POC Total CO2 Base Excess O2 Saturation O2 % ABG pCO2 ABG pO2 Paco Test VBG pH VBG pO2 VBG O2 Sat (Calc) VBG O2 Content VBG Base Excess POC Mix VBG pCO2 Pt Tmp Respiration Rate O2 Delivery Device Minute Volume Vent Mode Tidal Volume POC PEEP Blood Gas Notified Whom Blood Gas Notified Time Sodium 142 Potassium 3.9 Chloride 107 Carbon Dioxide 31.0 Anion Gap 4 L BUN 21 H Creatinine 0.98 Estim Creat Clear Calc 83.80 Est GFR (MDRD) Af Amer 101 Est GFR (MDRD) Non-Af 83 BUN/Creatinine Ratio 21.5 H Glucose 151 H Hemoglobin A1c Lactic Acid Calcium 7.6 L Phosphorus 1.9 L Magnesium 2.2 Iron TIBC Iron Saturation Ferritin Total Bilirubin AST ALT Alkaline Phosphatase Troponin I B-Natriuretic Peptide Total Protein Albumin Globulin Albumin/Globulin Ratio Triglycerides 106 Cholesterol 102 LDL Cholesterol 42 VLDL Cholesterol 21 HDL Cholesterol 39 L TSH Free T4 Free T3 pg/dL Urine Color Urine Clarity Urine pH Ur Specific [place] Urine Protein Urine Glucose (UA) Urine Ketones Urine Occult Blood Urine Nitrite Urine Bilirubin Urine Urobilinogen Ur Leukocyte Esterase Urine RBC Urine WBC Ur Squamous Epith Cells Ur Transition Epith Cell Urine Bacteria Hyaline Casts Fine Granular Casts Urine Mucus MRSA (PCR) POC Glucose 126 H Blood Type Antibody Screen Crossmatch Microbiology 07/21/19 06:43 Sputum, Induced/Lukens Gram Stain - Final 07/21/19 05:46 Mucosa - Nasopharyngeal Respiratory Panel (PCR) - Final 07/21/19 03:55 Urine Catheter - Rashid Legionella Antigen - Final 07/21/19 03:55 Urine Catheter - Rashid Streptococcus pneumoniae Antigen (M - Final Clinical Impression(s) from Imaging Studies Chest X-Ray 07/20/19 22:29 IMPRESSION: Limited inspiration. Endotracheal tube seen with tip approximately 3.4 cm proximal to the timothy. There is a small left-sided effusion. There is mild cardiomegaly. A nasogastric tube is present with tip projecting over the distal esophagus. Electronically Signed: Del Dale MD at 23:37 EDT , Service support , KUB X-Ray 07/20/19 23:10 IMPRESSION: Enteric tube in stomach. ET tube at the timothy and should be withdrawn 2 cm. Electronically Signed: Jerod Payne MD at 23:36 EDT , Service support , Medical Necessity - Tobacco Use Smoking Status: Former smoker Tobacco Use: Cigarettes Assessment/Plan All Active Problems (Last Reviewed 06/25/19 @ 09:00 by Jesika Ortiz NP-C) COPD exacerbation (Acute) Sepsis (Resolved) Acute interstitial pneumonia (Acute) Severe sepsis (Acute) Bronchospasm, acute (Acute) Hyperglycemia due to type 2 diabetes mellitus (Acute) Sinus tachycardia by electrocardiogram (Acute) Acute and chronic respiratory failure with hypoxia (Acute) Acute exacerbation of COPD with asthma (Acute) History of rotator cuff surgery (Resolved) Anxiety (Acute) Healthcare-associated pneumonia (Resolved) Chronic respiratory failure with hypoxia and hypercapnia (Acute) COPD with acute exacerbation (Acute) Acute kidney injury (Resolved) Nicotine dependence (Resolved) Sepsis (Resolved) RECOMMENDATIONS: 1. Proceed with a trial of extubation this morning. 2. Once extubated, wean supplemental oxygen to maintain saturations at or above 90%. 3. Initiate AVAPS with naps and nightly. 4. Perform swallow evaluation and advance diet accordingly. 5. Continue empiric antimicrobial therapy, pending infectious work-up. Vancomycin can be discontinued, given negative MRSA screen. 6. Phosphorus repletion as ordered. 7. Continue bronchodilators and steroids. 8. Continue PPI therapy. IMPRESSIONS: 1. Acute on chronic combined respiratory failure Improved. Concern for underlying COPD exacerbation being precipitated by pulmonary infectious process. The patient signed out of the emergency department yesterday AGAINST MEDICAL ADVICE after inpatient admission was recommended. In addition to the aforementioned, the patient is anemic this morning with a hemoglobin of 7.9 g/dL. The patient has end-stage COPD with a h istory of frequent exacerbations and a significantly reduced FEV1. I would recommend continuing current supportive measures with broad-spectrum antimicrobials, bronchodilators and steroids. The patient was transfused 1 unit of packed red blood cells yesterday with appropriate increase in hemoglobin. He has done well this morning and is currently a candidate for extubation. Once extubated, recommend initiating AVAPS therapy with naps and nightly. Wean supplemental oxygen as tolerated and encourage incentive spirometer use. 2. Microcytic anemia The patient does have a history of anemia, but did have a hemoglobin of 7.9 g/dL on admission. Given the patient's end-stage obstructive lung disease and issues with oxygenation, he was transfused 1 unit of packed red blood cells. Hemoglobin remained stable this morning. Continue twice daily PPI therapy. 3. Hypercarbic encephalopathy Resolved in the setting of invasive mechanical ventilatory support. Continue current supportive measures as noted above. Upon extubation, the patient can be started on AVAPS as he is prescribed a noninvasive ventilator in his home environment. 4. Acute kidney injury Resolved. Likely prerenal in etiology. Continue to monitor urine output. No current indication for renal replacement therapy. Supplemental IV fluids can be discontinued. 5. Heart failure with preserved ejection fraction/obstructive sleep apnea/obesity/coronary artery disease/hypertension/hyperlipidemia Complicates care, management, recovery and prognosis. Home medications can be restarted if the patient passes a swallow evaluation. Recommend physical therapy evaluation today. TIME: 38 minutes of critical care time, independent of procedures, was spent addressing the patient's acute on chronic combined respiratory failure, microcytic anemia, hypercarbic encephalopathy, acute kidney injury, review of all data and collaboration with the care team. ([id number]) Code Visit [id number]: [id number] Critical care first hour
--- NOTE | 2019-07-22 08:15 | PN_ITS ---
Patient Problems: Active and Suspected Problems (Last Reviewed 06/25/19 @ 09:00 by Jesika Ortiz NP-Dontae) COPD exacerbation (Acute) Acute interstitial pneumonia (Acute) Severe sepsis (Acute) Bronchospasm, acute (Acute) Hyperglycemia due to type 2 diabetes mellitus (Acute) Sinus tachycardia by electrocardiogram (Acute) Subjective: 58 YO male with stage 4 very severe COPD by GOLD classification and chronic respiratory failure with hypoxia and hypercapnia who initially presented to the ED at [facility] on 07/18/19 c/o SOB and then signed out AMA from the ED. Came back to ED on 07/21 by squad on CPAP and he was obtunded. Intubated in the ED. CXR does not definitively shows infiltrate. Admitted to the ICU with acute exacerbation COPD and presumed respiratory infection. Started on Zosyn and Vanco. MRSA nasal screen was negative and Vancomycin was discontinued. Day #2 Zosyn All events of the past 24 hours have been reviewed. T-max was 100.4 ?F in the emergency department at admission. He has been afebrile since 07/21/2019 at approximately noon. Vital signs are stable. Extubated on 07/22/2019 and currently on a 4 L nasal cannula and maintaining an oxygen saturation of 94 to 95%. Balance since admission is +6000 All lab was personally reviewed. The white blood cell count today is 11.3, down from 19.9 at admission. Hemoglobin is 8.4, down from 10 at admission but the patient was dehydrated at admission. BUN is 21 with a creatinine of 0.98. Globin A1c was 6.2. Phosphorus is low at 1.9 today and the magnesium is 2.2. Triglycerides are 106 and the LDL was 42 with an HDL of 39. Blood sugars are well controlled. Sputum Gram stain has 4+ white blood cells. Echocardiogram was a difficult study secondary to the patient's body habitus and the fact that he was on the ventilator. The estimated ejection fraction is 65% with no evidence for diastolic dysfunction. He is c/o diffuse abdominal tenderness....is constipated but refuses laxative......thinks he may be able to go if he can sit on the BSC. No CP and feels his breathing is almost at baseline. Sputum is clear with pink tinge.....small amount of blood - Physical Exam General: Alert, Oriented x3, Cooperative, No apparent distress, Well developed, Well nourished, - - face is starting to look round/cushingoid - likely due to chronic steroid use HEENT: Atraumatic, PERRLA, EOMI, - - The R upper eyelid is swollen and he has crusting of the upper lashes and some mucoid DC Oral: Moist Mucosa Neck: Supple, No Nodes, Trachea Midline Lungs: Clear to auscultation, Diminished, - - occasional cough. No conversational dyspnea and not tachyneic Cardiovascular: Regular rate, Regular Rhythm, Normal S1, Normal S2, No murmurs, No Gallop, - - distant heart sounds - likely related to body habitus and hyperinflation Abdomen: Bowel Sounds Present, Soft, Distended - amd tympanic, Tender - diffusely but no guarding with palpation Extremities: No cyanosis, Edema - pitting edema of the ankles R>L Skin: No rashes, No breakdown Neurological: Cranial nerves II-XII grossly intact, Neuro grossly intact Psych/Mental Status: Normal Affect, Appropriate Vital Signs Temp Pulse Resp BP Pulse Ox 98.3 F 90 16 135/70 H 95 07/22/19 07:47 07/22/19 07:47 07/22/19 07:47 07/22/19 07:47 07/22/19 07:47 Oxygen Flow Rate (L/min) 4 Oxygen Delivery Method Nasal Cannula Weight: 243 lb 13.3 oz Body Mass Index (BMI) 34.6 Intake and Output for Last 24 Hours 07/20/19 07/21/19 07/22/19 23:59 23:59 23:59 Intake Total 15.84 / 15.84 6582.78 / 6910.78 1944 / 1944 Output Total 1800 / 2150 700 / 700 Balance 15.84 / 15.84 4782.78 / 4760.78 1244 / 1244 Microbiology Past 72 Hours 07/21/19 06:43 Gram Stain - Final Sputum, Induced/Lukens 07/21/19 05:46 Respiratory Panel (PCR) - Final Mucosa - Nasopharyngeal 07/21/19 03:55 Legionella Antigen - Final Urine Catheter - Rashid 07/21/19 03:55 Streptococcus pneumoniae Antigen (M - Final Urine Catheter - Rashid Laboratory Tests Past 24 Hrs 07/21/19 07/21/19 07/21/19 09:00 09:00 09:00 WBC RBC Hgb Hct MCV MCH MCHC RDW Std Deviation RDW Coeff of Asael Plt Count MPV Sodium Potassium Chloride Carbon Dioxide Anion Gap BUN Creatinine Estim Creat Clear Calc Est GFR (MDRD) Af Amer Est GFR (MDRD) Non-Af BUN/Creatinine Ratio Glucose Hemoglobin A1c Calcium Phosphorus Magnesium Iron 9 L TIBC 283 Iron Saturation 3.2 L Ferritin 18 L Troponin I < 0.015 Triglycerides Cholesterol LDL Cholesterol VLDL Cholesterol HDL Cholesterol Free T4 1.26 Free T3 pg/dL 1.5 L MRSA (PCR) Blood Type A POSITIVE Antibody Screen NEGATIVE Crossmatch See Detail 07/21/19 07/21/19 07/22/19 09:00 09:00 04:00 WBC 11.3 H RBC 3.80 L Hgb 8.4 L Hct 29.9 L MCV 78.7 L MCH 22.1 L MCHC 28.1 L RDW Std Deviation 46.8 H RDW Coeff of Asael 16.4 H Plt Count 346 MPV 9.0 Sodium Potassium Chloride Carbon Dioxide Anion Gap BUN Creatinine Estim Creat Clear Calc Est GFR (MDRD) Af Amer Est GFR (MDRD) Non-Af BUN/Creatinine Ratio Glucose Hemoglobin A1c 6.2 Calcium Phosphorus Magnesium Iron TIBC Iron Saturation Ferritin Troponin I Triglycerides Cholesterol LDL Cholesterol VLDL Cholesterol HDL Cholesterol Free T4 Free T3 pg/dL MRSA (PCR) Negative Blood Type Antibody Screen Crossmatch 07/22/19 04:00 WBC RBC Hgb Hct MCV MCH MCHC RDW Std Deviation RDW Coeff of Asael Plt Count MPV Sodium 142 Potassium 3.9 Chloride 107 Carbon Dioxide 31.0 Anion Gap 4 L BUN 21 H Creatinine 0.98 Estim Creat Clear Calc 83.80 Est GFR (MDRD) Af Amer 101 Est GFR (MDRD) Non-Af 83 BUN/Creatinine Ratio 21.5 H Glucose 151 H Hemoglobin A1c Calcium 7.6 L Phosphorus 1.9 L Magnesium 2.2 Iron TIBC Iron Saturation Ferritin Troponin I Triglycerides 106 Cholesterol 102 LDL Cholesterol 42 VLDL Cholesterol 21 HDL Cholesterol 39 L Free T4 Free T3 pg/dL MRSA (PCR) Blood Type Antibody Screen Crossmatch POC Glucose 07/22/19 07/21/19 07/21/19 05:58 21:37 16:59 POC Glucose 126 H 140 H 113 H 07/21/19 12:07 POC Glucose 146 H Medical Necessity - Tobacco Use Smoking Status: Former smoker Tobacco Use: Cigarettes Assessment/Plan All Active Problems (Last Reviewed 06/25/19 @ 09:00 by TEVIN Mattson) COPD exacerbation (Acute) Sepsis (Resolved) Acute interstitial pneumonia (Acute) Severe sepsis (Acute) Bronchospasm, acute (Acute) Hyperglycemia due to type 2 diabetes mellitus (Acute) Sinus tachycardia by electrocardiogram (Acute) Acute and chronic respiratory failure with hypoxia (Acute) Acute exacerbation of COPD with asthma (Acute) History of rotator cuff surgery (Resolved) Anxiety (Acute) Healthcare-associated pneumonia (Resolved) Chronic respiratory failure with hypoxia and hypercapnia (Acute) COPD with acute exacerbation (Acute) Acute kidney injury (Resolved) Nicotine dependence (Resolved) Sepsis (Resolved) Impressions 1. acute exacerbation COPD presumed due to infection - infectious w/u in progress. Sputum from the ED visit on 07/19/19 grew normal respiratory catrachito. Respiratory panel pending. Legionella and streptococcal antigens in the urine are pending. Blood cultures and urine culture are pending. Sputum culture taken from the ET tube is pending. Gram stain is positive for 4+ white blood cells. LA nl at admission. Continue Zosyn and await final sputum culture. Extubated 07/22/2019. Start diet if he passes his bedside swallowing evaluation 2. Acute combined respiratory failure on chronic combined respiratory failure -oxygen requirement is usually 4 to 6 L/min. Extubated 07/22/2019 and currently on a 5 L nasal cannula and maintaining an oxygen saturation of 95%. 3. Microcytic anemia due to iron deficiency -1 unit of packed red blood cells transfused on 07/21/2019. Iron studies are consistent with iron deficiency anemia. Will give 200 mg of iron sucrose again today. Continue outpatient oral iron supplement with vitamin C 500 mg. Needs endoscopy if not recently done to determine where the chronic blood loss is coming from. Hemoglobin increased from 7.9-8.4 after 1 unit of packed red blood cells but he is 6 liters up and I suspect there is a component of hemodilution at play. Hemoccult stool has been ordered. He is on Aspirin and Plavix and the blood loss is likely coming from the GI tract. Transition the Protonix to PO. 4. chronic steroid use-10 mg daily. On high-dose steroids currently for COPD exacerbation 5. Stage IV very severe COPD by gold classification - continue aerosols and s teroids 6. Obstructive sleep apnea - has a Trilogy at home 7. Diabetes mellitus type 2 - well controlled with a HGBA1C of 6.2. 8. History of diastolic congestive heart failure with preserved ejection fraction 9. Hyperlipidemia 10. Morbid obesity 11. Acute kidney injury-more likely than not secondary to intravascular volume depletion. 12. Coronary artery disease with history of stent to the RCA in 2005 13. Hypertension 14. Tobacco dependence in remission 15. Hypophosphatemia-supplementation ordered Lasix 40 mg IV BID today - 2 doses ordered. Restart PO Lasix tomorrow. Recheck the lab in the AM Up to chair today. Restart some of the home medications today Maintain in the ICU today Code Visit Inpatient E&M: 68325 Subs Hosp L3
[2019-07-22] MEDS: Furosemide 40 MG/4 ML Vial IV ×2 (10:33→16:55)
[2019-07-22] MEDS: Enoxaparin 40 MG/0.4 ML Syringe SC (10:36)
[2019-07-22 11:16] LABS: Bedside Glucose 120 mg/dL (70-110)
[2019-07-22] MEDS: Tobramycin Sulf 0.3% 5ML OPTH.BTL 2 DRP RIGHT EYE ×3 (12:40→23:50)
[2019-07-22] MEDS: 0.9% Normal Saline 1,000 ML 15 ML IV (15:59)
[2019-07-22] MEDS: Metoprolol Tartrate 5 MG/5 ML Vial IV ×2 (16:03→23:51)
[2019-07-22 17:01] LABS: Bedside Glucose 105 mg/dL (70-110)
[2019-07-22] MEDS: Atorvastatin Calcium 40 MG Tablet PO (21:11)
[2019-07-22] MEDS: guaiFENesin 1,200 MG Tablet 1200 MG PO (21:12)
[2019-07-22] MEDS: buPROPion 100 MG Tablet PO (21:12)
[2019-07-22] MEDS: Pantoprazole Sodium 40 MG Tablet PO (21:12)
[2019-07-23] VITALS (31 sets, daily range): BP systolic 105–146; BP diastolic 64–94; PULSE 69–110; RESP 14–24; TEMP 36.8–37.2; O2SAT 94–100
[2019-07-23] LABS: Bedside Glucose 129 mg/dL (70-110)
[2019-07-23] MEDS: Ipratropium/Albuterol Sulfate 3 ML AMPUL.NEB INHALATION ×6 (02:48→23:11)
[2019-07-23 03:52] LABS: Hematocrit 32.8 % (40-54); Hemoglobin 9.2 g/dL (13.0-16.5); Mean Corpuscular Hgb 22.2 pg (27.0-32.0); Mean Corpuscular Volume 79.2 fL (80-94); Mean Platelet Vol. 9.2 fl (6.2-12.0); Platelet Count 351 K/mm3 (150-450); RBC Distribution Width CV 16.6 % (11.6-14.6); RBC Distribution Width SD 47.1 fl (35.1-43.9); Red Blood Count 4.14 M/mm3 (4.6-6.2); White Blood Count 9.7 K/mm3 (4.4-11.0)
[2019-07-23 04:07] LABS: Anion Gap 4 (5-15); BUN 23 mg/dL (7-18); BUN/Creat Ratio 24.6 RATIO (10-20); Chloride 103 mmol/L (98-107); Creatinine, Serum 0.94 mg/dL (0.70-1.30); EST Glomerular Filtration Rate 88 mL/min (>60); Est Glom Filt Rate - Afr Amer 106 mL/min (>60); Estimated Creatinine Clearance 87.37 ml/min; Glucose 120 mg/dL (74-106); Phosphorus 2.5 mg/dL (2.5-4.9); Potassium 3.7 mmol/L (3.5-5.1); Sodium Level 143 mmol/L (136-145)
[2019-07-23] MEDS: Metoprolol Tartrate 5 MG/5 ML Vial IV (05:21)
[2019-07-23] MEDS: Tobramycin Sulf 0.3% 5ML OPTH.BTL 2 DRP RIGHT EYE ×3 (05:21→17:00)
[2019-07-23] MEDS: 0.9% NaCl PICC Flush IV (05:22)
[2019-07-23 05:36] LABS: Bedside Glucose 116 mg/dL (70-110)
--- NOTE | 2019-07-23 09:43 | PN_ITS ---
Patient Problems: Active and Suspected Problems (Last Reviewed 06/25/19 @ 09:00 by TEVIN Mattson) COPD exacerbation (Acute) Subjective: Chief complaint: Follow-up after admission for acute on chronic combined respiratory failure due to acute COPD exacerbation triggered by pulmonary infection status post extubation. Patient seen and examined. No acute events overnight. At this time, he complained of abdominal soreness. Breathing is getting better he has been on 4 to 6 L of oxygen which is his baseline at home. His other vital signs are stable. - Physical Exam General: Alert, Oriented x3, Cooperative, - - Minimal shortness of breath. HEENT: Atraumatic, PERRLA, EOMI, Normocephalic Oral: Moist Mucosa, No Gingival or Mucosal Lesions/ Ulcerations Neck: Supple, No JVD, Negative Carotid Bruits, Trachea Midline, Thyroid Normal Size and Texture Lungs: No rales, Diminished, Rhonchi, Short of Breath, Wheezes, - - Decreased breath sounds bilateral, bilateral rhonchi. Cardiovascular: Regular rate, Regular Rhythm, Normal S1, Normal S2, PMI Normal Abdomen: Bowel Sounds Present, Soft, Non-Distended, No Hepato-splenomegaly, Obes e Extremities: No clubbing, No cyanosis, No edema Skin: No rashes, No breakdown Lymphatic: No Cervical, Supraclavicular, or Inguinal Adenopathy Neurological: Cranial nerves II-XII grossly intact, Motor Exam 5/5 strength throughout Psych/Mental Status: Normal Affect, Appropriate, Alert and oriented to time, place, person, mood and affect Vital Signs Temp Pulse Resp BP Pulse Ox 98.4 F 83 20 H 132/76 H 94 07/23/19 08:00 07/23/19 08:00 07/23/19 08:00 07/23/19 08:00 07/23/19 08:00 Oxygen Flow Rate (L/min) 4 Oxygen Delivery Method Nasal Cannula Weight: 232 lb 9.403 oz Body Mass Index (BMI) 34.6 Intake and Output for Last 24 Hours 07/21/19 07/22/19 07/23/19 23:59 23:59 23:59 Intake Total 6582.78 / 6910.78 3307.00 / 3307.00 280.00 / 280.00 Output Total 1800 / 2150 3575 / 3575 325 / 325 Balance 4782.78 / 4760.78 -268.00 / -268.00 -45.00 / -45.00 Microbiology Past 72 Hours 07/22/19 10:25 Stool Occult Blood (JEOVANNY) - Final Stool 07/21/19 06:43 Gram Stain - Final Sputum, Induced/Lukens Respiratory Culture - Preliminary GNR Poss Pseudomonas sp 07/21/19 03:55 Urine Culture - Preliminary Urine Catheter - Rashid Culture exhibits no growth. 07/22/19 10:29 Stool Occult Blood (JEOVANNY) - Final Stool 07/21/19 05:46 Respiratory Panel (PCR) - Final Mucosa - Nasopharyngeal 07/21/19 03:55 Legionella Antigen - Final Urine Catheter - Rashid 07/21/19 03:55 Streptococcus pneumoniae Antigen (M - Final Urine Catheter - Rashid Laboratory Tests Past 24 Hrs 07/23/19 07/23/19 03:45 03:45 WBC 9.7 RBC 4.14 L Hgb 9.2 L Hct 32.8 L MCV 79.2 L MCH 22.2 L MCHC 28.0 L RDW Std Deviation 47.1 H RDW Coeff of Asael 16.6 H Plt Count 351 MPV 9.2 Sodium 143 Potassium 3.7 Chloride 103 Carbon Dioxide 36.0 H Anion Gap 4 L BUN 23 H Creatinine 0.94 Estim Creat Clear Calc 87.37 Est GFR (MDRD) Af Amer 106 Est GFR (MDRD) Non-Af 88 BUN/Creatinine Ratio 24.6 H Glucose 120 H Calcium 8.0 L Phosphorus 2.5 POC Glucose 07/23/19 07/22/19 07/22/19 05:27 23:49 16:52 POC Glucose 116 H 129 H 105 07/22/19 11:09 POC Glucose 120 H Medical Necessity - Tobacco Use Smoking Status: Former smoker Tobacco Use: Cigarettes Assessment/Plan All Active Problems (Last Reviewed 06/25/19 @ 09:00 by TEVIN Mattson) Acute and chronic respiratory failure with hypoxia (Acute) COPD exacerbation (Acute) This is a 58 years old male patient presented to the emergency room because of worsening shortness of breath and severe obstructive stress, found to have acute COPD exacerbation which is probably triggered by pulmonary infection and complicated by acute on chronic combined hypoxic and hypercapnic respiratory failure that required endotracheal intubation and mechanical ventilation status post extubation that was done yesterday. #1 acute on chronic combined respiratory failure: Post extubation yesterday. At this time, pulse ox is maintained on 4 L of oxygen, pulse ox is 94%. Other vital signs are stable. Patient is alert and oriented. He is on IV antibiotics, IV steroids and bronchodilators. Pneumococcal and Legionella antigen were negative. Respiratory panel for viruses were negative. Sputum culture revealed pseudomonas aeruginosa. Patient is on IV Zosyn. Blood cultures pending. Plan: Transfer to PCU, continue same treatment. #2 acute COPD exacerbation: Again, on IV steroids, IV antibiotics and bronchodilators. Cultures reviewed as above. Plan to continue same treatment, continue IV Zosyn, continue IV Solu-Medrol. #3 type 2 diabetes mellitus: Blood sugar has been stable, continue insulin sliding scale. #4 acute kidney injury: Patient received IV fluids, kidney function improved, creatinine was 1.34 on admission, went up to 1.43 and today, it came down to 0.94, improving. #5 CAD status post stents: Stable, no acute issues. Continue aspirin, Plavix, statins, beta-blockers. #6 chronic diastolic CHF: Clinically stable, compensated. Continue beta- blockers, aspirin and statins. Resume Lasix when home medication list updated. #7 chronic anemia: Received 1 unit of packed RBCs. Hemoglobin was 10 on adm ission, came down to 7.9. Today hemoglobin is 9.2 g/dL. #8 obstructive sleep apnea: On CPAP at home. #9 hypertension: Blood pressure stable, continue current medications. #10 DVT prophylaxis: Subcu Lovenox. This note was generated with [employer] dictation software. It may contain incorrect words, spelling, and punctuation that were not noted in checking the note before signing. Code Visit Inpatient E&M: 11467 Subs Hosp L2
[2019-07-23] MEDS: Acetaminophen 325 MG Tablet 650 MG PO (09:49)
[2019-07-23] MEDS: proCHLORPERazine 10 MG/2 ML Vial 5 MG IV (09:52)
[2019-07-23] MEDS: 0.9% NaCl Peripheral Flush Adult/Peds IV ×2 (09:53→21:57)
[2019-07-23] MEDS: Enoxaparin 40 MG/0.4 ML Syringe SC (09:58)
[2019-07-23] MEDS: buPROPion 100 MG Tablet PO ×2 (09:59→21:57)
[2019-07-23] MEDS: Pantoprazole Sodium 40 MG Tablet PO ×2 (09:59→21:57)
[2019-07-23] MEDS: Clopidogrel Bisulfate 75 MG Tablet PO (09:59)
[2019-07-23] MEDS: ROFLUMILAST 500 MCG TABLET PO (10:00)
[2019-07-23] MEDS: guaiFENesin 1,200 MG Tablet 1200 MG PO ×2 (10:00→21:57)
[2019-07-23] MEDS: Metoprolol Tartrate 25 MG Tablet PO ×2 (10:01→21:57)
[2019-07-23] MEDS: Aspirin 81 MG TAB.CHEW PO (10:01)
--- NOTE | 2019-07-23 10:34 | PN_ITS ---
Subjective: Patient did well overnight. No acute issues were reported. Patient was able to tolerate AVAPS overnight at home settings. Patient continues to have a cough, but overall feels subjectively improved compared to previous. General: Alert, Oriented x3, Cooperative, No apparent distress, Well developed, Well nourished, - - Mild conversational dyspnea. Appears older than stated age. HEENT: Atraumatic, PERRLA, EOMI, Normocephalic, - - No scleral icterus or injection noted. Oral: Moist Mucosa, No Gingival or Mucosal Lesions/ Ulcerations, - - Poor dentition Neck: Supple, No JVD, No Nodes, Trachea Midline Lungs: No rhonchi, No rales, Diminished, Wheezes Cardiovascular: Regular rate, Regular Rhythm, Normal S1, Normal S2, No murmurs, No rub noted, No Gallop Abdomen: Bowel Sounds Present, Soft, Non Tender, Non-Distended, Obese Extremities: No cyanosis, No edema, Capillary Refill Less than 3 Seconds, Clubbing Skin: No rashes, No breakdown Musculoskeletal: No Tenderness to Palpation of Joints or Extremities Lymphatic: No Cervical, Supraclavicular, or Inguinal Adenopathy Neurological: Cranial nerves II-XII grossly intact, Neuro grossly intact, Motor Exam 5/5 strength throughout Psych/Mental Status: Alert and oriented to time, place, person, mood and affect Vital Signs Temp Pulse Resp BP Pulse Ox 36.9 C 110 H 20 H 132/76 H 94 07/23/19 08:00 07/23/19 10:25 07/23/19 10:25 07/23/19 08:00 07/23/19 08:00 Oxygen Flow Rate (L/min) 4 Oxygen Delivery Method Nasal Cannula Weight: 105.5 kg Body Mass Index (BMI) 34.6 Intake and Output for Last 24 Hours 07/21/19 07/22/19 07/23/19 23:59 23:59 23:59 Intake Total 6582.78 / 6910.78 3307.00 / 3307.00 341.00 / 341.00 Output Total 1800 / 2150 3575 / 3575 325 / 325 Balance 4782.78 / 4760.78 -268.00 / -268.00 16.00 / 16.00 Labs (Last 48 Hours) 07/21/19 07/21/19 07/21/19 09:00 09:00 12:07 WBC RBC Hgb Hct MCV MCH MCHC RDW Std Deviation RDW Coeff of Asael Plt Count MPV Sodium Potassium Chloride Carbon Dioxide Anion Gap BUN Creatinine Estim Creat Clear Calc Est GFR (MDRD) Af Amer Est GFR (MDRD) Non-Af BUN/Creatinine Ratio Glucose Calcium Phosphorus Magnesium Triglycerides Cholesterol LDL Cholesterol VLDL Cholesterol HDL Cholesterol MRSA (PCR) Negative POC Glucose 146 H Blood Type A POSITIVE Antibody Screen NEGATIVE Crossmatch See Detail 07/21/19 07/21/19 07/22/19 16:59 21:37 04:00 WBC 11.3 H RBC 3.80 L Hgb 8.4 L Hct 29.9 L MCV 78.7 L MCH 22.1 L MCHC 28.1 L RDW Std Deviation 46.8 H RDW Coeff of Asael 16.4 H Plt Count 346 MPV 9.0 Sodium Potassium Chloride Carbon Dioxide Anion Gap BUN Creatinine Estim Creat Clear Calc Est GFR (MDRD) Af Amer Est GFR (MDRD) Non-Af BUN/Creatinine Ratio Glucose Calcium Phosphorus Magnesium Triglycerides Cholesterol LDL Cholesterol VLDL Cholesterol HDL Cholesterol MRSA (PCR) POC Glucose 113 H 140 H Blood Type Antibody Screen Crossmatch 07/22/19 07/22/19 07/22/19 04:00 05:58 11:09 WBC RBC Hgb Hct MCV MCH MCHC RDW Std Deviation RDW Coeff of Asael Plt Count MPV Sodium 142 Potassium 3.9 Chloride 107 Carbon Dioxide 31.0 Anion Gap 4 L BUN 21 H Creatinine 0.98 Estim Creat Clear Calc 83.80 Est GFR (MDRD) Af Amer 101 Est GFR (MDRD) Non-Af 83 BUN/Creatinine Ratio 21.5 H Glucose 151 H Calcium 7.6 L Phosphorus 1.9 L Magnesium 2.2 Triglycerides 106 Cholesterol 102 LDL Cholesterol 42 VLDL Cholesterol 21 HDL Cholesterol 39 L MRSA (PCR) POC Glucose 126 H 120 H Blood Type Antibody Screen Crossmatch 07/22/19 07/22/19 07/23/19 16:52 23:49 03:45 WBC 9.7 RBC 4.14 L Hgb 9.2 L Hct 32.8 L MCV 79.2 L MCH 22.2 L MCHC 28.0 L RDW Std Deviation 47.1 H RDW Coeff of Asael 16.6 H Plt Count 351 MPV 9.2 Sodium Potassium Chloride Carbon Dioxide Anion Gap BUN Creatinine Estim Creat Clear Calc Est GFR (MDRD) Af Amer Est GFR (MDRD) Non-Af BUN/Creatinine Ratio Glucose Calcium Phosphorus Magnesium Triglycerides Cholesterol LDL Cholesterol VLDL Cholesterol HDL Cholesterol MRSA (PCR) POC Glucose 105 129 H Blood Type Antibody Screen Crossmatch 07/23/19 07/23/19 03:45 05:27 WBC RBC Hgb Hct MCV MCH MCHC RDW Std Deviation RDW Coeff of Asael Plt Count MPV Sodium 143 Potassium 3.7 Chloride 103 Carbon Dioxide 36.0 H Anion Gap 4 L BUN 23 H Creatinine 0.94 Estim Creat Clear Calc 87.37 Est GFR (MDRD) Af Amer 106 Est GFR (MDRD) Non-Af 88 BUN/Creatinine Ratio 24.6 H Glucose 120 H Calcium 8.0 L Phosphorus 2.5 Magnesium Triglycerides Cholesterol LDL Cholesterol VLDL Cholesterol HDL Cholesterol MRSA (PCR) POC Glucose 116 H Blood Type Antibody Screen Crossmatch Microbiology 07/21/19 06:43 Sputum, Induced/Lukens Gram Stain - Final 07/21/19 06:43 Sputum, Induced/Lukens Respiratory Culture - Final Pseudomonas aeroginosa 07/21/19 03:55 Urine Catheter - Rashid Urine Culture - Final Culture exhibits no growth. 07/22/19 10:25 Stool Stool Occult Blood (JEOVANNY) - Final 07/22/19 10:29 Stool Stool Occult Blood (JEOVANNY) - Final 07/21/19 05:46 Mucosa - Nasopharyngeal Respiratory Panel (PCR) - Final Medical Necessity - Tobacco Use Smoking Status: Former smoker Tobacco Use: Cigarettes Assessment/Plan All Active Problems (Last Updated 07/23/19 @ 10:20 by Fredo Hsu MD) Acute and chronic respiratory failure with hypoxia (Acute) COPD exacerbation (Acute) RECOMMENDATIONS: 1. Crease activity as tolerated. Oxygen to keep saturations greater than 90% at all times 2. Wean steroid therapy 3. Continue AVAPS with naps and nightly. 4. Okay to advance diet as tolerated 5. Consider transition from Zosyn to Levaquin therapy given sensitivities 6. Continue bronchodilators and steroids. Will need baseline 10 mg/day of prednisone 7. Continue PPI therapy. IMPRESSIONS: 1. Acute on chronic combined respiratory failure Improved. Concern for underlying COPD exacerbation being precipitated by pulmonary infectious process. The patient signed out of the emergency department yesterday AGAINST MEDICAL ADVICE after inpatient admission was recommended. In addition to the aforementioned, the patient is anemic this morning with a hemoglobin of 7.9 g/dL. The patient has end-stage COPD with a history of frequent exacerbations and a significantly reduced FEV1. Patient is growing pansensitive Pseudomonas. Likely okay to discontinue Zosyn and add p.o. medication such as Levaquin to complete antibiotic course. Patient should continue AVAPS with any sleep. Patient has a similar device at home. 2. Microcytic anemia The patient does have a history of anemia, but did have a hemoglobin of 7.9 g/dL on admission. Given the patient's end-stage obstructive lung disease and issues with oxygenation, he was transfused 1 unit of packed red blood cells previously. Hemoglobin remained stable this morning. Continue twice daily PPI therapy. Okay to transition to p.o. twice daily PPI from my perspective 3. Hypercarbic encephalopathy Resolved in the setting of invasive mechanical ventilatory support. Continue current supportive measures as noted above. Patient should be continued on AVAPS to avoid potential hypercarbia in the future. 4. Acute kidney injury Resolved. Likely prerenal in etiology. Continue to monitor urine output. No current indication for renal replacement therapy. Supplemental IV fluids can be discontinued. 5. Heart failure with preserved ejection fraction/obstructive sleep apnea/o besity/coronary artery disease/hypertension/hyperlipidemia Complicates care, management, recovery and prognosis. Home medications have been restarted. Recommend physical therapy evaluation today. Code Visit Inpatient E&M: 13468 [facility] L3
[2019-07-23 11:41] LABS: Bedside Glucose 214 mg/dL (70-110)
[2019-07-23] MEDS: Insulin Lispro 100 UNIT/ML INSULN.PEN SC (11:53)
[2019-07-23 12:23] LABS: Pathologist Review Reviewed
[2019-07-23] MEDS: Glucerna Shake 120 ML LIQUID PO (17:01)
[2019-07-23 17:05] LABS: Bedside Glucose 95 mg/dL (70-110)
[2019-07-23] MEDS: Atorvastatin Calcium 40 MG Tablet PO (21:57)
[2019-07-24] VITALS (22 sets, daily range): BP systolic 121–143; BP diastolic 74–79; PULSE 62–90; RESP 14–24; TEMP 36.2–36.9; O2SAT 94–99
[2019-07-24] MEDS: Tobramycin Sulf 0.3% 5ML OPTH.BTL 2 DRP RIGHT EYE ×5 (00:15→23:23)
[2019-07-24 00:25] LABS: Bedside Glucose 129 mg/dL (70-110)
[2019-07-24] MEDS: Ipratropium/Albuterol Sulfate 3 ML AMPUL.NEB INHALATION ×6 (03:33→23:15)
[2019-07-24 05:40] LABS: Bedside Glucose 149 mg/dL (70-110)
--- NOTE | 2019-07-24 08:11 | PN_ITS ---
Patient Problems: Active and Suspected Problems (Last Updated 07/23/19 @ 10:20 by Fredo Hsu MD) COPD exacerbation (Acute) Subjective: Chief complaint: Follow-up after admission for acute on chronic combined respiratory failure due to acute COPD exacerbation triggered by pulmonary infection status post extubation. Patient seen and examined. No acute events overnight. Patient mentioned that he still gets very short of breath on minimal exertion although he remained on 4 L of oxygen this morning. Other vital signs are stable. - Physical Exam General: Alert, Oriented x3, Cooperative, - - Minimally short of breath. HEENT: Atraumatic, PERRLA, EOMI, Normocephalic Oral: Moist Mucosa, No Gingival or Mucosal Lesions/ Ulcerations Neck: Supple, No JVD, Negative Carotid Bruits, Trachea Midline, Thyroid Normal Size and Texture Lungs: No rales, Diminished, Rhonchi, Wheezes, - - Decreased breath sounds bilateral, rhonchi, occasional wheezes. Cardiovascular: Regular rate, Regular Rhythm, Normal S1, Normal S2, PMI Normal Abdomen: Bowel Sounds Present, Soft, Non Tender, Non-Distended, No Hepato- splenomegaly, Obese Extremities: No clubbing, No cyanosis, No edema Skin: No rashes, No breakdown Lymphatic: No Cervical, Supraclavicular, or Inguinal Adenopathy Neurological: Cranial nerves II-XII grossly intact, Neuro grossly intact Psych/Mental Status: Normal Affect, Appropriate Vital Signs Temp Pulse Resp BP Pulse Ox 97.1 F L 79 24 H 128/76 H 98 07/24/19 04:10 07/24/19 07:16 07/24/19 07:16 07/24/19 04:10 07/24/19 07:16 Oxygen Flow Rate (L/min) 4 Oxygen Delivery Method Nasal Cannula Weight: 234 lb 2.095 oz Body Mass Index (BMI) 34.6 Intake and Output for Last 24 Hours 07/22/19 07/23/19 07/24/19 23:59 23:59 23:59 Intake Total 3307.00 / 3307.00 1496.63 / 1616.63 144.37 / 144.37 Output Total 3575 / 3575 700 / 975 650 / 650 Balance -268.00 / -268.00 796.63 / 641.63 -505.63 / -505.63 Microbiology Past 72 Hours 07/20/19 23:20 Blood Culture - Preliminary Blood Culture (Wb) - Right Hand No growth in 48 hours. 07/20/19 23:40 Blood Culture - Preliminary Blood Culture (Wb) - Anticubital Right No growth in 48 hours. 07/21/19 06:43 Gram Stain - Final Sputum, Induced/Lukens Respiratory Culture - Final Pseudomonas aeroginosa 07/21/19 03:55 Urine Culture - Final Urine Catheter - Rashid Culture exhibits no growth. 07/22/19 10:25 Stool Occult Blood (JEOVANNY) - Final Stool 07/22/19 10:29 Stool Occult Blood (JEOVANNY) - Final Stool 07/21/19 05:46 Respiratory Panel (PCR) - Final Mucosa - Nasopharyngeal 07/21/19 03:55 Legionella Antigen - Final Urine Catheter - Rashid 07/21/19 03:55 Streptococcus pneumoniae Antigen (M - Final Urine Catheter - Rashid Laboratory Tests Past 24 Hrs 07/20/19 07/21/19 23:00 09:00 Diff Path Review Reviewed Crossmatch See Detail POC Glucose 07/24/19 07/24/19 07/23/19 05:30 00:17 16:59 POC Glucose 149 H 129 H 95 07/23/19 11:33 POC Glucose 214 H Medical Necessity - Tobacco Use Smoking Status: Former smoker Tobacco Use: Cigarettes Assessment/Plan All Active Problems (Last Updated 07/23/19 @ 10:20 by Fredo Hsu MD) Acute and chronic respiratory failure with hypoxia (Acute) COPD exacerbation (Acute) This is a 58 years old male patient presented to the emergency room because of worsening shortness of breath and severe obstructive stress, found to have acute COPD exacerbation which is probably triggered by pulmonary infection and complicated by acute on chronic combined hypoxic and hypercapnic respiratory failure that required endotracheal intubation and mechanical ventilation status post extubation that was done yesterday. #1 acute on chronic combined respiratory failure: Post extubation. Tolerated BiPAP overnight and this morning, he is on 4 L of oxygen which is his baseline at home. He did mention that he still gets very short of breath on minimal activity. Other vital signs are stable. He is on IV antibiotics, IV steroids and bronchodilators. Pneumococcal and Legionella antigen were negative. Respiratory panel for viruses were negative. Sputum culture revealed pseudomonas aeruginosa. Patient is on IV Zosyn. Blood cultures showed no growth in 48 hours. Plan to continue same treatment. #2 acute COPD exacerbation: Again, on IV steroids, IV antibiotics and bronchodilators. Cultures reviewed as above. Plan to continue same treatment, continue IV Zosyn, continue IV Solu-Medrol. #3 type 2 diabetes mellitus: Blood sugar has been stable, continue insulin sliding scale. #4 acute kidney injury: Patient received IV fluids, kidney function improved, creatinine was 1.34 on admission, went up to 1.43 and came down to 0.94, improving. #5 CAD status post stents: Stable, no acute issues. Continue aspirin, Plavix, statins, beta-blockers. #6 chronic diastolic CHF: Clinically stable, compensated. Continue beta- blockers, aspirin and statins. Resume Lasix when home medication list updated. #7 chronic anemia: Received 1 unit of packed RBCs. Hemoglobin was 10 on admission, came down to 7.9. Yesterday's hemoglobin is 9.2 g/dL. #8 obstructive sleep apnea: On CPAP at home. #9 hypertension: Blood pressure stable, continue current medications. #10 DVT prophylaxis: Subcu Lovenox. This note was generated with [employer] dictation software. It may contain incorrect words, spelling, and punctuation that were not noted in checking the note before signing. Code Visit Inpatient E&M: 40644 Subs Hosp L2
[2019-07-24] MEDS: Pantoprazole Sodium 40 MG Tablet PO ×2 (08:40→21:34)
[2019-07-24] MEDS: Enoxaparin 40 MG/0.4 ML Syringe SC (08:40)
[2019-07-24] MEDS: Metoprolol Tartrate 25 MG Tablet PO ×2 (08:40→21:34)
[2019-07-24] MEDS: buPROPion 100 MG Tablet PO ×2 (08:41→21:34)
[2019-07-24] MEDS: guaiFENesin 1,200 MG Tablet 1200 MG PO ×2 (08:41→21:34)
[2019-07-24] MEDS: ROFLUMILAST 500 MCG TABLET PO (08:41)
[2019-07-24] MEDS: Aspirin 81 MG TAB.CHEW PO (08:41)
[2019-07-24] MEDS: Glucerna Shake 120 ML LIQUID PO ×4 (08:41→21:39)
[2019-07-24] MEDS: Clopidogrel Bisulfate 75 MG Tablet PO (08:41)
[2019-07-24 11:40] LABS: Bedside Glucose 190 mg/dL (70-110)
[2019-07-24] MEDS: levoFLOXacin 750 MG Tablet PO (12:33)
[2019-07-24] MEDS: predniSONE 20 MG Tablet 40 MG PO (12:33)
[2019-07-24] MEDS: Insulin Lispro 100 UNIT/ML INSULN.PEN SC ×2 (12:34→23:24)
--- NOTE | 2019-07-24 13:45 | PN_ITS ---
Patient Problems: Active and Suspected Problems (Last Updated 07/23/19 @ 10:20 by Fredo Hsu MD) COPD exacerbation (Acute) Subjective: Patient is reporting worsening in his respiratory status compared to previous. Patient states with any ambulation or eating he gets severely dyspneic. Patient is not reporting any increase in cough. - Physical Exam General: Alert, Oriented x3, Cooperative, - - Mild to moderate conversational dyspnea. Appears older than stated age. HEENT: Atraumatic, PERRLA, EOMI, Normocephalic, - - No scleral icterus or injection noted Oral: Moist Mucosa, No Gingival or Mucosal Lesions/ Ulcerations Neck: Supple, No JVD, No Nodes, Trachea Midline Lungs: No rhonchi, No rales, Diminished, Wheezes Cardiovascular: Regular rate, Regular Rhythm, Normal S1, Normal S2, No murmurs, No rub noted, No Gallop Abdomen: Bowel Sounds Present, Soft, Non Tender, Non-Distended Extremities: No cyanosis, Clubbing, Edema Skin: No rashes, No breakdown Musculoskeletal: No Tenderness to Palpation of Joints or Extremities Lymphatic: No Cervical, Supraclavicular, or Inguinal Adenopathy Neurological: Cranial nerves II-XII grossly intact, Neuro grossly intact, Motor Exam 5/5 strength throughout Psych/Mental Status: Anxious, Restless Vital Signs Temp Pulse Resp BP Pulse Ox 36.3 C L 90 22 H 143/74 H 96 07/24/19 13:37 07/24/19 13:37 07/24/19 13:38 07/24/19 13:37 07/24/19 13:37 Oxygen Flow Rate (L/min) 4 Oxygen Delivery Method Nasal Cannula Weight: 106.2 kg Body Mass Index (BMI) 34.6 Intake and Output for Last 24 Hours 07/22/19 07/23/19 07/24/19 23:59 23:59 23:59 Intake Total 3307.00 / 3307.00 1496.63 / 1616.63 194.37 / 194.37 Output Total 3575 / 3575 700 / 975 650 / 650 Balance -268.00 / -268.00 796.63 / 641.63 -455.63 / -455.63 Microbiology Past 72 Hours 07/20/19 23:20 Blood Culture - Preliminary Blood Culture (Wb) - Right Hand No growth in 48 hours. 10/11/19 23:40 Blood Culture - Preliminary Blood Culture (Wb) - Anticubital Right No growth in 48 hours. 07/21/19 06:43 Gram Stain - Final Sputum, Induced/Lukens Respiratory Culture - Final Pseudomonas aeroginosa 07/21/19 03:55 Urine Culture - Final Urine Catheter - Rashid Culture exhibits no growth. 07/22/19 10:25 Stool Occult Blood (JEOVANNY) - Final Stool 07/22/19 10:29 Stool Occult Blood (JEOVANNY) - Final Stool 07/21/19 05:46 Respiratory Panel (PCR) - Final Mucosa - Nasopharyngeal Laboratory Tests Past 24 Hrs 07/21/19 09:00 Crossmatch See Detail POC Glucose 07/24/19 07/24/19 07/24/19 11:22 05:30 00:17 POC Glucose 190 H 149 H 129 H 07/23/19 16:59 POC Glucose 95 Medical Necessity - Tobacco Use Smoking Status: Former smoker Tobacco Use: Cigarettes Assessment/Plan All Active Problems (Last Updated 07/23/19 @ 10:20 by Fredo Hsu MD) Acute and chronic respiratory failure with hypoxia (Acute) COPD exacerbation (Acute) RECOMMENDATIONS: 1. Crease activity as tolerated. Oxygen to keep saturations greater than 90% at all times 2. Wean steroid therapy over the next 12 to 14 days 3. Continue AVAPS with naps and nightly. 4. Reinitiate baseline diuretic therapy 5. Agree with transition to Levaquin therapy given sensitivities 6. Continue bronchodilators and steroids. Will need baseline 10 mg/day of prednisone 7. Continue PPI therapy. IMPRESSIONS: 1. Acute on chronic combined respiratory failure secondary to pseudomonal pneumonia Improved. Concern for underlying COPD exacerbation being precipitated by pulmonary infectious process. The patient signed out of the emergency department yesterday AGAINST MEDICAL ADVICE after inpatient admission was recommended. In addition to the aforementioned, the patient is anemic this morning with a hemoglobin of 7.9 g/dL. The patient has end-stage COPD with a history of frequent exacerbations and a significantly reduced FEV1. Patient is growing pansensitive Pseudomonas. Agree with transition to Levaquin therapy. Patient should continue AVAPS with any sleep. Patient has a similar device at home. Patient on diuretics at baseline. This has not been continued. Will reinitiate diuretic therapy. 2. Microcytic anemia The patient does have a history of anemia, but did have a hemoglobin of 7.9 g/dL on admission. Given the patient's end-stage obstructive lung disease and issues with oxygenation, he was transfused 1 unit of packed red blood cells previously. Hemoglobin remained stable this morning. Continue twice daily PPI therapy. Okay to transition to p.o. twice daily PPI from my perspective 3. Hypercarbic encephalopathy Resolved in the setting of invasive mechanical ventilatory support. Continue current supportive measures as noted above. Patient should be continued on AVAPS to avoid potential hypercarbia in the future. 4. Acute kidney injury Resolved. Likely prerenal in etiology. Continue to monitor urine output. No current indication for renal replacement therapy. 5. Heart failure with preserved ejection fraction/obstructive sleep apnea/obesity/coronary artery disease/hypertension/hyperlipidemia Complicates care, management, recovery and prognosis. Home medications have been restarted. Recommend physical therapy evaluation today. Code Visit Inpatient E&M: 80698 [facility] Hosp L3
[2019-07-24] MEDS: 0.9% NaCl Peripheral Flush Adult/Peds IV (15:20)
[2019-07-24] MEDS: Furosemide 40 MG/4 ML Vial IV (15:20)
[2019-07-24 17:20] LABS: Bedside Glucose 131 mg/dL (70-110)
[2019-07-24] MEDS: Atorvastatin Calcium 40 MG Tablet PO (21:34)
[2019-07-24 23:31] LABS: Bedside Glucose 156 mg/dL (70-110)
[2019-07-25] VITALS (19 sets, daily range): BP systolic 97–138; BP diastolic 49–78; PULSE 71–99; RESP 14–22; TEMP 36.4–36.9; O2SAT 95–99
[2019-07-25] MEDS: Ipratropium/Albuterol Sulfate 3 ML AMPUL.NEB INHALATION ×6 (02:45→23:26)
--- NOTE | 2019-07-25 03:45 | CPS ---
Changed Medium full face mask to Large full face mask
[2019-07-25] MEDS: levoFLOXacin 750 MG Tablet PO (06:00)
[2019-07-25] MEDS: Tobramycin Sulf 0.3% 5ML OPTH.BTL 2 DRP RIGHT EYE ×4 (06:00→23:47)
[2019-07-25 06:26] LABS: Bedside Glucose 90 mg/dL (70-110)
[2019-07-25] MEDS: Aspirin 81 MG TAB.CHEW PO (08:11)
[2019-07-25] MEDS: predniSONE 20 MG Tablet 40 MG PO (08:11)
[2019-07-25] MEDS: buPROPion 100 MG Tablet PO ×2 (09:44→21:27)
[2019-07-25] MEDS: Enoxaparin 40 MG/0.4 ML Syringe SC (09:44)
[2019-07-25] MEDS: Clopidogrel Bisulfate 75 MG Tablet PO (09:44)
[2019-07-25] MEDS: ROFLUMILAST 500 MCG TABLET PO (09:44)
[2019-07-25] MEDS: Metoprolol Tartrate 25 MG Tablet PO ×2 (09:44→21:27)
[2019-07-25] MEDS: Glucerna Shake 120 ML LIQUID PO ×4 (09:44→21:27)
[2019-07-25] MEDS: guaiFENesin 1,200 MG Tablet 1200 MG PO ×2 (09:44→21:27)
[2019-07-25] MEDS: Pantoprazole Sodium 40 MG Tablet PO ×2 (09:45→21:27)
[2019-07-25] MEDS: Furosemide 40 MG Tablet PO (09:46)
--- NOTE | 2019-07-25 10:22 | PN_ITS ---
Patient Problems: Active and Suspected Problems (Last Updated 07/23/19 @ 10:20 by Fredo Hsu MD) COPD exacerbation (Acute) Subjective: Patient did okay overnight. Patient reporting no subjective improvement in overall condition. Patient did have significant dyspnea on exertion with walking approximately 10 feet. No change in cough is reported. - Physical Exam General: Alert, Oriented x3, Cooperative, - - Conversational dyspnea noted. Appears older than stated age. HEENT: Atraumatic, PERRLA, EOMI, Normocephalic, - - Glasses in place. Mild scleral injection noted. Oral: Moist Mucosa, No Gingival or Mucosal Lesions/ Ulcerations Neck: Supple, No Nodes, Trachea Midline, JVD, Right Lungs: No rhonchi, No rales, Diminished, Wheezes - At end exhalation only Cardiovascular: Normal S1, Normal S2, Murmur, No rub noted, No Gallop, Tachycardic Abdomen: Bowel Sounds Present, Soft, Non Tender, Non-Distended Extremities: No cyanosis, Clubbing, Edema - Trace lower extremity Skin: - - No change compared to previous Musculoskeletal: No Tenderness to Palpation of Joints or Extremities Lymphatic: No Cervical, Supraclavicular, or Inguinal Adenopathy Neurological: Cranial nerves II-XII grossly intact, Neuro grossly intact, Motor Exam 5/5 strength throughout Psych/Mental Status: Anxious, Restless Vital Signs Temp Pulse Resp BP Pulse Ox 36.9 C 88 16 114/75 98 07/25/19 09:37 07/25/19 09:44 07/25/19 09:37 07/25/19 09:44 07/25/19 09:37 Oxygen Flow Rate (L/min) 4 Oxygen Delivery Method Nasal Cannula Weight: 105.6 kg Body Mass Index (BMI) 34.6 Intake and Output for Last 24 Hours 07/23/19 07/24/19 07/25/19 23:59 23:59 23:59 Intake Total 1496.63 / 1616.63 334.62 / 334.62 Output Total 700 / 975 1975 / 2500 525 / 525 Balance 796.63 / 641.63 -1640.38 / -2165.38 -525 / -525 Microbiology Past 72 Hours 07/20/19 23:20 Blood Culture - Preliminary Blood Culture (Wb) - Right Hand No growth in 48 hours. 07/20/19 23:40 Blood Culture - Preliminary Blood Culture (Wb) - Anticubital Right No growth in 48 hours. 07/21/19 06:43 Gram Stain - Final Sputum, Induced/Lukens Respiratory Culture - Final Pseudomonas aeroginosa 07/21/19 03:55 Urine Culture - Final Urine Catheter - Rashid Culture exhibits no growth. 07/22/19 10:25 Stool Occult Blood (JEOVANNY) - Final Stool 07/22/19 10:29 Stool Occult Blood (JEOVANNY) - Final Stool POC Glucose 07/25/19 07/24/19 07/24/19 06:20 23:22 17:08 POC Glucose 90 156 H 131 H 07/24/19 11:22 POC Glucose 190 H Medical Necessity - Tobacco Use Smoking Status: Former smoker Tobacco Use: Cigarettes Assessment/Plan All Active Problems (Last Updated 07/23/19 @ 10:20 by Fredo Hsu MD) Acute and chronic respiratory failure with hypoxia (Acute) COPD exacerbation (Acute) RECOMMENDATIONS: 1. Increase activity as tolerated. Oxygen to keep saturations greater than 90% at all times 2. Wean steroid therapy over the next 12 to 14 days 3. Continue AVAPS with naps and nightly. 4. Transition to more aggressive diuretic therapy 5. Agree with transition to Levaquin therapy given sensitivities to complete a 10-day course 6. Continue bronchodilators and steroids. Will need baseline 10 mg/day of prednisone 7. Continue PPI therapy. IMPRESSIONS: 1. Acute on chronic combined respiratory failure secondary to pseudomonal pneumonia Improved. Concern for underlying COPD exacerbation being precipitated by pulmonary infectious process. The patient signed out of the emergency department yesterday AGAINST MEDICAL ADVICE after inpatient admission was recommended. In addition to the aforementioned, the patient is anemic this morning with a hemoglobin of 7.9 g/dL. The patient has end-stage COPD with a history of frequent exacerbations and a significantly reduced FEV1. Patient is growing pansensitive Pseudomonas. Levaquin therapy for 7 to 10 days would be appropriate. Patient should continue AVAPS with any sleep. Patient has a similar device at home. Patient on diuretics at baseline. This has not been continued. Will accelerate diuretic therapy. 2. Microcytic anemia The patient does have a history of anemia, but did have a hemoglobin of 7.9 g/dL on admission. Given the patient's end-stage obstructive lung disease and issues with oxygenation, he was transfused 1 unit of packed red blood cells previously. Hemoglobin remained stable this morning. Continue twice daily PPI therapy. Okay to transition to p.o. twice daily PPI from my perspective 3. Hypercarbic encephalopathy Resolved in the setting of invasive mechanical ventilatory support. Continue current supportive measures as noted above. Patient should be continued on AVAPS to avoid potential hypercarbia in the future. 4. Acute kidney injury Resolved. Likely prerenal in etiology. Continue to monitor urine output. No current indication for renal replacement therapy. Waiting for morning BMP. 5. Heart failure with preserved ejection fraction/obstructive sleep apnea/obesity/coronary artery disease/hypertension/hyperlipidemia Complicates care, management, recovery and prognosis. Home medications have been restarted. Recommend physical therapy evaluation today. Code Visit Inpatient E&M: 77519 [facility] Hosp L3
--- NOTE | 2019-07-25 10:30 | PN_ITS ---
Patient Problems: Active and Suspected Problems (Last Updated 07/23/19 @ 10:20 by Fredo Hsu MD) COPD exacerbation (Acute) Subjective: Chief complaint: Follow-up after admission for acute on chronic combined respiratory failure due to acute COPD exacerbation triggered by pulmonary infection status post extubation. Patient seen and examined. No acute events overnight. Again, patient mentioned that he is still having a rough time breathing especially with minimal activity. He mentioned that he did not see any improvement. He had significant exertional shortness of breath when he was walking this morning. Pulse ox remained stable on 4 L of oxygen with walking. Other vital signs are stable, afebrile. - Physical Exam General: Alert, Oriented x3, Cooperative, - - Moderately short of breath. HEENT: Atraumatic, PERRLA, EOMI, Normocephalic Oral: Moist Mucosa, No Gingival or Mucosal Lesions/ Ulcerations Neck: Supple, No JVD, Negative Carotid Bruits, Trachea Midline, Thyroid Normal Size and Texture Lungs: Diminished, Rhonchi, Short of Breath, Wheezes, - - Decreased breath sounds bilateral, bilateral rhonchi. End expiratory wheezes. Cardiovascular: Regular rate, Regular Rhythm, Normal S1, Normal S2, PMI Normal Abdomen: Bowel Sounds Present, Soft, Non Tender, Non-Distended, No Hepato- splenomegaly, Obese Extremities: No clubbing, No cyanosis, No edema Skin: No rashes, No breakdown Lymphatic: No Cervical, Supraclavicular, or Inguinal Adenopathy Neurological: Cranial nerves II-XII grossly intact, Neuro grossly intact Psych/Mental Status: Normal Affect, Appropriate, Alert and oriented to time, place, person, mood and affect Vital Signs Temp Pulse Resp BP Pulse Ox 98.4 F 88 16 114/75 98 07/25/19 09:37 07/25/19 09:44 07/25/19 09:37 07/25/19 09:44 07/25/19 09:37 Oxygen Flow Rate (L/min) 4 Oxygen Delivery Method Nasal Cannula Weight: 232 lb 12.93 oz Body Mass Index (BMI) 34.6 Intake and Output for Last 24 Hours 07/23/19 07/24/19 07/25/19 23:59 23:59 23:59 Intake Total 1496.63 / 1616.63 334.62 / 334.62 Output Total 700 / 975 1975 / 2500 525 / 525 Balance 796.63 / 641.63 -1640.38 / -2165.38 -525 / -525 Microbiology Past 72 Hours 07/20/19 23:20 Blood Culture - Preliminary Blood Culture (Wb) - Right Hand No growth in 48 hours. 07/20/19 23:40 Blood Culture - Preliminary Blood Culture (Wb) - Anticubital Right No growth in 48 hours. 07/21/19 06:43 Gram Stain - Final Sputum, Induced/Lukens Respiratory Culture - Final Pseudomonas aeroginosa 07/21/19 03:55 Urine Culture - Final Urine Catheter - Rashid Culture exhibits no growth. 07/22/19 10:25 Stool Occult Blood (JEOVANNY) - Final Stool 07/22/19 10:29 Stool Occult Blood (JEOVANNY) - Final Stool POC Glucose 07/25/19 07/24/19 07/24/19 06:20 23:22 17:08 POC Glucose 90 156 H 131 H 07/24/19 11:22 POC Glucose 190 H Medical Necessity - Tobacco Use Smoking Status: Former smoker Tobacco Use: Cigarettes Assessment/Plan All Active Problems (Last Updated 07/23/19 @ 10:20 by Fredo Hsu MD) Acute and chronic respiratory failure with hypoxia (Acute) COPD exacerbation (Acute) This is a 58 years old male patient presented to the emergency room because of worsening shortness of breath and severe obstructive stress, found to have acute COPD exacerbation which is probably triggered by pulmonary infection and complicated by acute on chronic combined hypoxic and hypercapnic respiratory failure that required endotracheal intubation and mechanical ventilation status post extubation that was done yesterday. #1 acute on chronic combined respiratory failure: Post extubation. Tolerating BiPAP all night and on oxygen at 4 L during daytime. His oxygen requirement did not increase up on ambulation but he became very short of breath. His other vital signs are stable. He reported no improvement of his symptoms especially upon exertion. He is on oral Levaquin, oral prednisone and bronchodilators. Pneumococcal and Legionella antigen were negative. Respiratory panel for viruses were negative. Sputum culture revealed pseudomonas aeruginosa. Blood cultures showed no growth in 48 hours. Plan: Start IV Lasix, continue other treatments. #2 acute COPD exacerbation: Again, on oral steroids, Levaquin and bronchodilators. Cultures reviewed as above. #3 probable mild acute on chronic diastolic CHF: Patient was on IV fluids while he was in the ICU and his Lasix was held. He is back on Lasix since yesterday. He is still symptomatically with shortness of breath on exertion. He could have mild exacerbation of CHF. Plan: Start IV Lasix, continue metoprolol, aspirin and statins, repeat BMP tomorrow morning. #4 type 2 diabetes mellitus: Blood sugar has been stable, continue insulin sl iding scale. #5 acute kidney injury: Patient received IV fluids, kidney function improved, creatinine was 1.34 on admission, went up to 1.43 and came down to 0.94, improving. Plan to repeat BMP tomorrow morning. #6 CAD status post stents: Stable, no acute issues. Continue aspirin, Plavix, statins, beta-blockers. #7 chronic anemia: Received 1 unit of packed RBCs. Hemoglobin was 10 on admission, came down to 7.9. Most recent hemoglobin is 9.2 g/dL. We will repeat CBC tomorrow morning. #8 obstructive sleep apnea: On CPAP at home. #9 hypertension: Blood pressure stable, continue current medications. #10 DVT prophylaxis: Subcu Lovenox. This note was generated with [employer] dictation software. It may contain incorrect words, spelling, and punctuation that were not noted in checking the note before signing. Code Visit Inpatient E&M: 20924 Subs Hosp L2
[2019-07-25 11:24] LABS: Anion Gap 6 (5-15); BUN 23 mg/dL (7-18); BUN/Creat Ratio 22.5 RATIO (10-20); Calcium,Total 8.6 mg/dL (8.5-10.1); Chloride 100 mmol/L (98-107); Creatinine, Serum 1.02 mg/dL (0.70-1.30); EST Glomerular Filtration Rate 79 mL/min (>60); Est Glom Filt Rate - Afr Amer 96 mL/min (>60); Estimated Creatinine Clearance 80.51 ml/min; Glucose 155 mg/dL (74-106); Potassium 3.3 mmol/L (3.5-5.1); Sodium Level 143 mmol/L (136-145)
[2019-07-25 12:06] LABS: Bedside Glucose 165 mg/dL (70-110)
[2019-07-25] MEDS: Insulin Lispro 100 UNIT/ML INSULN.PEN SC (12:23)
[2019-07-25] MEDS: 0.9% NaCl Peripheral Flush Adult/Peds IV ×3 (12:24→17:19)
--- NOTE | 2019-07-25 13:11 | CPS ---
Critical pH & CO2 values read to Dr. Aguilar
[2019-07-25] MEDS: Furosemide 40 MG/4 ML Vial IV (17:19)
[2019-07-25 17:26] LABS: Bedside Glucose 145 mg/dL (70-110)
[2019-07-25] MEDS: Atorvastatin Calcium 40 MG Tablet PO (21:27)
[2019-07-25 23:56] LABS: Bedside Glucose 130 mg/dL (70-110)
[2019-07-26] VITALS (21 sets, daily range): BP systolic 108–120; BP diastolic 65–73; PULSE 71–102; RESP 14–23; TEMP 36.5–36.8; O2SAT 93–100
[2019-07-26] MEDS: Ipratropium/Albuterol Sulfate 3 ML AMPUL.NEB INHALATION ×6 (03:36→22:39)
[2019-07-26] MEDS: 0.9% NaCl PICC Flush IV ×3 (05:20→17:19)
[2019-07-26] MEDS: levoFLOXacin 750 MG Tablet PO (06:08)
[2019-07-26] MEDS: Tobramycin Sulf 0.3% 5ML OPTH.BTL 2 DRP RIGHT EYE ×4 (06:10→23:22)
[2019-07-26 06:16] LABS: Bedside Glucose 101 mg/dL (70-110)
[2019-07-26 06:45] LABS: Absolute Lymphocyte Count 3.02 X10^3/uL (0.83-4.51); Absolute Neutrophil Count 8.4 X10^3/uL (2.0-7.7); Basophil# 0.04 X10^3/uL; Basophil% 0.3 % (0-1); Eosinophil# 0.24 X10^3/uL; Eosinophils% 1.8 % (0-5); Hematocrit 35.3 % (40-54); Hemoglobin 9.7 g/dL (13.0-16.5); Lymphocyte # 3.02 X10^3/ul (4.0); Mean Corp Hgb Conc 27.5 g/dL (32-36); Mean Corpuscular Volume 80.2 fL (80-94); Mean Platelet Vol. 9.2 fl (6.2-12.0); Monocyte# 1.24 X10^3/uL; Monocyte% 9.5 % (0-10); NRBC Flagged by Analyzer 0 % (0-5); Platelet Count 440 K/mm3 (150-450); RBC Distribution Width CV 17.3 % (11.6-14.6); RBC Distribution Width SD 49.4 fl (35.1-43.9); White Blood Count 13.1 K/mm3 (4.4-11.0)
[2019-07-26 07:07] LABS: Anion Gap 4 (5-15); BUN 23 mg/dL (7-18); BUN/Creat Ratio 24.1 RATIO (10-20); Calcium,Total 8.7 mg/dL (8.5-10.1); Chloride 101 mmol/L (98-107); Creatinine, Serum 0.96 mg/dL (0.70-1.30); EST Glomerular Filtration Rate 85 mL/min (>60); Est Glom Filt Rate - Afr Amer 103 mL/min (>60); Estimated Creatinine Clearance 85.55 ml/min; Glucose 96 mg/dL (74-106); Potassium 3.4 mmol/L (3.5-5.1); Sodium Level 143 mmol/L (136-145)
[2019-07-26] MEDS: Aspirin 81 MG TAB.CHEW PO (09:20)
[2019-07-26] MEDS: predniSONE 20 MG Tablet 40 MG PO (09:20)
[2019-07-26] MEDS: ROFLUMILAST 500 MCG TABLET PO (09:21)
[2019-07-26] MEDS: Glucerna Shake 120 ML LIQUID PO (09:21)
[2019-07-26] MEDS: Enoxaparin 40 MG/0.4 ML Syringe SC (09:22)
[2019-07-26] MEDS: guaiFENesin 1,200 MG Tablet 1200 MG PO ×2 (09:22→21:33)
[2019-07-26] MEDS: Metoprolol Tartrate 25 MG Tablet PO ×2 (09:22→21:33)
[2019-07-26] MEDS: Furosemide 40 MG/4 ML Vial IV ×2 (09:22→17:05)
[2019-07-26] MEDS: Clopidogrel Bisulfate 75 MG Tablet PO (09:23)
[2019-07-26] MEDS: buPROPion 100 MG Tablet PO ×2 (09:23→21:33)
[2019-07-26] MEDS: HYDROcodone Bitartrate/Apap 5/325 Tablet PO (09:23)
[2019-07-26] MEDS: Pantoprazole Sodium 40 MG Tablet PO ×2 (09:23→21:33)
--- NOTE | 2019-07-26 10:12 | CASEMGMT ---
SW met with patient, introduced self and role at [facility]. SW spoke with patient about Palliative Care. SW encouraged him to consider the program as it would be very helpful to help manage his COPD. He said he does not make any decisions without his . He said SW can come back when she is here and explain the program to her. SW left the pamphlet with patient and will check back later. Swati WILKINSON
[2019-07-26] MEDS: Insulin Lispro 100 UNIT/ML INSULN.PEN SC ×2 (13:00→17:10)
[2019-07-26 13:26] LABS: Bedside Glucose 150 mg/dL (70-110)
--- NOTE | 2019-07-26 14:04 | PCM.PROGNOTE ---
Patient Problems: Active and Suspected Problems (Last Updated 07/23/19 @ 10:20 by Fredo Hsu MD) COPD exacerbation (Acute) Subjective: Chief complaint: Follow-up after admission for acute on chronic combined respiratory failure due to acute COPD exacerbation triggered by pulmonary infection status post extubation. Patient seen and examined. No acute events overnight. Again, he complained of significant worsening shortness of breath even with minimal activity although he remained on 4 L of oxygen. His other vital signs are stable. - Physical Exam General: Alert, Oriented x3, Cooperative, - - Moderately short of breath. HEENT: Atraumatic, PERRLA, EOMI, Normocephalic Oral: Moist Mucosa, No Gingival or Mucosal Lesions/ Ulcerations Neck: Supple, No JVD, Negative Carotid Bruits, Trachea Midline, Thyroid Normal Size and Texture Lungs: No rales, Diminished, Wheezes, - - Decreased breath sounds bilateral, bilateral rhonchi. Cardiovascular: Regular rate, Regular Rhythm, Normal S1, Normal S2, PMI Normal Abdomen: Bowel Sounds Present, Soft, Non Tender, Non-Distended, No Hepato-splenomegaly, Obese Extremities: No clubbing, No cyanosis, Edema Skin: No rashes, No breakdown Lymphatic: No Cervical, Supraclavicular, or Inguinal Adenopathy Neurological: Cranial nerves II-XII grossly intact, Neuro grossly intact Psych/Mental Status: Normal Affect, Appropriate Vital Signs Temp Pulse Resp BP Pulse Ox 97.9 F 78 20 H 114/65 99 07/26/19 09:08 07/26/19 10:38 07/26/19 10:38 07/26/19 09:08 07/26/19 09:08 Oxygen Flow Rate (L/min) 4 Oxygen Delivery Method Nasal Cannula Weight: 231 lb 4.238 oz Body Mass Index (BMI) 34.6 Intake and Output for Last 24 Hours 07/24/19 07/25/19 07/26/19 23:59 23:59 23:59 Intake Total 334.62 / 334.62 1220 / 1220 780 / 780 Output Total 1974 / 2499 2074 / 2074 1325 / 1325 Balance -1640.38 / -2165.38 -855 / -855 -545 / -545 Microbiology Past 72 Hours 07/20/19 23:20 Blood Culture - Final Blood Culture (Wb) - Right Hand No growth in 5 days. 07/20/19 23:40 Blood Culture - Final Blood Culture (Wb) - Anticubital Right No growth in 5 days. 07/21/19 06:43 Gram Stain - Final Sputum, Induced/Lukens Respiratory Culture - Final Pseudomonas aeroginosa Laboratory Tests Past 24 Hrs 07/26/19 07/26/19 05:17 05:17 WBC 13.1 H RBC 4.40 L Hgb 9.7 L Hct 35.3 L MCV 80.2 MCH 22.0 L MCHC 27.5 L RDW Std Deviation 49.4 H RDW Coeff of Asael 17.3 H Plt Count 440 MPV 9.2 Immature Gran % (Auto) 1.400 H Neut % (Auto) 64.0 Lymph % (Auto) 23.0 [place] % (Auto) 9.5 Eos % (Auto) 1.8 Baso % (Auto) 0.3 Absolute Neuts (auto) 8.4 H Absolute Lymphs (auto) 3.02 Nucleated RBC % 0 Sodium 143 Potassium 3.4 L Chloride 101 Carbon Dioxide 38.0 H Anion Gap 4 L BUN 23 H Creatinine 0.96 Estim Creat Clear Calc 85.55 Est GFR (MDRD) Af Amer 103 Est GFR (MDRD) Non-Af 85 BUN/Creatinine Ratio 24.1 H Glucose 96 Calcium 8.7 POC Glucose 07/26/19 07/26/19 07/25/19 12:55 06:10 23:44 POC Glucose 150 H 101 130 H 07/25/19 17:17 POC Glucose 145 H Medical Necessity - Tobacco Use Smoking Status: Former smoker Tobacco Use: Cigarettes Assessment/Plan All Active Problems (Last Updated 07/23/19 @ 10:20 by Fredo Hsu MD) Acute and chronic respiratory failure with hypoxia (Acute) COPD exacerbation (Acute) This is a 58 years old male patient presented to the emergency room because of worsening shortness of breath and severe obstructive stress, found to have acute COPD exacerbation which is probably triggered by pulmonary infection and complicated by acute on chronic combined hypoxic and hypercapnic respiratory failure that required endotracheal intubation and mechanical ventilation status post extubation that was done yesterday. #1 acute on chronic combined respiratory failure: Status post extubation. Remains on oral prednisone, oral Levaquin, bronchodilators and BiPAP at night. Oxygen requirement has been the same, stable at 4 L but patient gets very short of breath upon minimal exertion. He is on IV diuresis. His other vital signs are stable. Pneumococcal and Legionella antigen were negative. Respiratory panel for viruses were negative. Sputum culture revealed pseudomonas aeruginosa. Blood cultures showed no growth in 48 hours. Plan to continue same treatment, continue IV diuresis. #2 acute COPD exacerbation: Again, on oral steroids, Levaquin and bronchodilators. Cultures reviewed as above. Plan as above. #3 probable mild acute on chronic diastolic CHF: He is on IV Lasix. He has been diuresing, good urine output. Continue IV Lasix, continue metoprolol, aspirin and statins, repeat BMP tomorrow morning. #4 type 2 diabetes mellitus: Blood sugar has been stable, continue insulin sliding scale. #5 acute kidney injury: Patient received IV fluids, kidney function improved, creatinine was 1.34 on admission, today's creatinine is 0.96. Stable. #6 CAD status post stents: Stable, no acute issues. Continue aspirin, Plavix, statins, beta-blockers. #7 chronic anemia: Received 1 unit of packed RBCs. Today's hemoglobin is 9.7 g/dL, stable. #8 obstructive sleep apnea: On CPAP at home. #9 hypertension: Blood pressure stable, continue current medications. #10 DVT prophylaxis: Subcu Lovenox. This note was generated with [employer] dictation software. It may contain incorrect words, spelling, and punctuation that were not noted in checking the note before signing. Code Visit Inpatient E&M: 18739 Subs Hosp L2
--- NOTE | 2019-07-26 15:31 | CASEMGMT ---
Physician spoke with patient about possibly going to a group home. SW met with patient to discuss his plan. He said he spoke with his and she will be in tomorrow and we can all talk about it. He said he would prefer to go home as he has 2 grandsons at home. He went on to tell SW about the stressors he has at home. SW listened and provided emotional support. Patient then apologized for airing his dirty laundry. SW told him there is no need to apologize. SW explained that SW is more than happy to listen and provide support. He thanked SW for listening. SW told him SW will check in with him tomorrow. Swati MOORE MSW
--- NOTE | 2019-07-26 15:33 | PN_ITS ---
Patient Problems: Active and Suspected Problems (Last Updated 07/23/19 @ 10:20 by Fredo Hsu MD) COPD exacerbation (Acute) Subjective: Patient reports little subjective improvement in overall condition. Patient is still reporting dyspnea on exertion. Patient has had good diuresis, but does not feel this has made significant improvements in overall condition. Patient states he feels the problem is his Glucerna shakes. These are too thick and weigh on my stomach. I am going to refuse them for today and see if this makes an improvement. Patient reportedly has had some diarrhea, so C. difficile is currently pending. - Physical Exam General: Alert, Oriented x3, Cooperative, - - Mild conversational dyspnea. Dyspneic appearance appeared to be worse when patient knew I was in the doorway. HEENT: Atraumatic, PERRLA, EOMI, Normocephalic Oral: Moist Mucosa, No Gingival or Mucosal Lesions/ Ulcerations, - - Poor dentition Neck: Supple, No JVD, No Nodes, Trachea Midline Lungs: No rhonchi, No wheeze, No rales, Diminished, - - Symmetric expansion. No dullness to percussion. Cardiovascular: Regular rate, Normal S1, Normal S2, No murmurs, No rub noted, No Gallop Abdomen: Bowel Sounds Present, Soft, Non Tender, Non-Distended Extremities: No cyanosis, Capillary Refill Less than 3 Seconds, Edema Skin: - - No change compared to previous Musculoskeletal: No Tenderness to Palpation of Joints or Extremities Lymphatic: No Cervical, Supraclavicular, or Inguinal Adenopathy Neurological: Cranial nerves II-XII grossly intact, Neuro grossly intact, Motor Exam 5/5 strength throughout Psych/Mental Status: Anxious, Restless Vital Signs Temp Pulse Resp BP Pulse Ox 36.6 C 78 20 H 114/65 99 07/26/19 09:08 07/26/19 10:38 07/26/19 10:38 07/26/19 09:08 07/26/19 09:08 Oxygen Flow Rate (L/min) 4 Oxygen Delivery Method Nasal Cannula Weight: 104.9 kg Body Mass Index (BMI) 34.6 Intake and Output for Last 24 Hours 07/24/19 07/25/19 07/26/19 23:59 23:59 23:59 Intake Total 334.62 / 334.62 1220 / 1220 780 / 780 Output Total 1974 1325 / 1325 Balance -1640.38 / -2165.38 -855 / -855 -545 / -545 Microbiology Past 72 Hours 07/20/19 23:20 Blood Culture - Final Blood Culture (Wb) - Right Hand No growth in 5 days. 07/20/19 23:40 Blood Culture - Final Blood Culture (Wb) - Anticubital Right No growth in 5 days. Laboratory Tests Past 24 Hrs 07/26/19 07/26/19 05:17 05:17 WBC 13.1 H RBC 4.40 L Hgb 9.7 L Hct 35.3 L MCV 80.2 MCH 22.0 L MCHC 27.5 L RDW Std Deviation 49.4 H RDW Coeff of Asael 17.3 H Plt Count 440 MPV 9.2 Immature Gran % (Auto) 1.400 H Neut % (Auto) 64.0 Lymph % (Auto) 23.0 [place] % (Auto) 9.5 Eos % (Auto) 1.8 Baso % (Auto) 0.3 Absolute Neuts (auto) 8.4 H Absolute Lymphs (auto) 3.02 Nucleated RBC % 0 Sodium 143 Potassium 3.4 L Chloride 101 Carbon Dioxide 38.0 H Anion Gap 4 L BUN 23 H Creatinine 0.96 Estim Creat Clear Calc 85.55 Est GFR (MDRD) Af Amer 103 Est GFR (MDRD) Non-Af 85 BUN/Creatinine Ratio 24.1 H Glucose 96 Calcium 8.7 POC Glucose 07/26/19 07/26/19 07/25/19 12:55 06:10 23:44 POC Glucose 150 H 101 130 H 07/25/19 17:17 POC Glucose 145 H Medical Necessity - Tobacco Use Smoking Status: Former smoker Tobacco Use: Cigarettes Assessment/Plan All Active Problems (Last Updated 07/23/19 @ 10:20 by Fredo Hsu MD) Acute and chronic respiratory failure with hypoxia (Acute) COPD exacerbation (Acute) RECOMMENDATIONS: 1. Increase activity as tolerated. Oxygen to keep saturations greater than 90% at all times 2. Wean steroid therapy over the next 12 to 14 days 3. Continue AVAPS with naps and nightly. 4. Continue aggressive diuretic therapy 5. Agree with transition to Levaquin therapy given sensitivities to complete a 10-day course 6. Continue bronchodilators and steroids. Will need baseline 10 mg/day of prednisone 7. Continue PPI therapy. IMPRESSIONS: 1. Acute on chronic combined respiratory failure secondary to pseudomonal pneumonia Improved. Concern for underlying COPD exacerbation being precipitated by pulmonary infectious process. The patient signed out of the emergency department yesterday AGAINST MEDICAL ADVICE after inpatient admission was recommended. In addition to the aforementioned, the patient is anemic this morning with a hemoglobin of 7.9 g/dL. The patient has end-stage COPD with a history of frequent exacerbations and a significantly reduced FEV1. Patient is growing pansensitive Pseudomonas. Levaquin therapy for 7 to 10 days would be appropriate. Patient should continue AVAPS with any sleep. Patient has a similar device at home. Patient on diuretics at baseline. Patient receiving aggressive diuretic therapy and appears to be tolerating well. Replete potassium as indicated 2. Microcytic anemia The patient does have a history of anemia, but did have a hemoglobin of 7.9 g/dL on admission. Given the patient's end-stage obstructive lung disease and issues with oxygenation, he was transfused 1 unit of packed red blood cells previously. Hemoglobin remained stable this morning. Continue twice daily PPI therapy. Okay to transition to p.o. twice daily PPI from my perspective 3. Hypercarbic encephalopathy Resolved in the setting of invasive mechanical ventilatory support. Continue current supportive measures as noted above. Patient should be continued on AVAPS to avoid potential hypercarbia in the future. 4. Acute kidney injury Resolved. Likely prerenal in etiology. Continue to monitor urine output. No current indication for renal replacement therapy. Monitor renal function on a daily basis 5. Heart failure with preserved ejection fraction/obstructive sleep apnea/obesity/coronary artery disease/hypertension/hyperlipidemia Complicates care, management, recovery and prognosis. Home medications have been restarted. Recommend physical therapy evaluation today. Did have an extensive conversation with the patient about the possible need for an ECF on discharge given failure to improve. Patient voiced apprehension and wants to see how he feels tomorrow. Also discussed the potential of palliative care versus hospice as options. Code Visit Inpatient E&M: 22869 [facility] Hosp L3
[2019-07-26 17:40] LABS: Bedside Glucose 181 mg/dL (70-110)
[2019-07-26] MEDS: Atorvastatin Calcium 40 MG Tablet PO (21:33)
[2019-07-26 21:40] LABS: Bedside Glucose 146 mg/dL (70-110)
[2019-07-27] VITALS (12 sets, daily range): BP systolic 105–123; BP diastolic 64–75; PULSE 74–99; RESP 14–22; TEMP 36.4–36.9; O2SAT 93–97
[2019-07-27] MEDS: Ipratropium/Albuterol Sulfate 3 ML AMPUL.NEB INHALATION ×3 (02:53→11:14)
[2019-07-27] MEDS: 0.9% NaCl PICC Flush IV (05:10)
[2019-07-27 05:33] LABS: Anion Gap 2 (5-15); BUN 27 mg/dL (7-18); BUN/Creat Ratio 28.1 RATIO (10-20); Calcium,Total 8.6 mg/dL (8.5-10.1); Chloride 98 mmol/L (98-107); Creatinine, Serum 0.96 mg/dL (0.70-1.30); EST Glomerular Filtration Rate 85 mL/min (>60); Est Glom Filt Rate - Afr Amer 103 mL/min (>60); Estimated Creatinine Clearance 85.55 ml/min; Glucose 109 mg/dL (74-106); Potassium 3.5 mmol/L (3.5-5.1); Sodium Level 141 mmol/L (136-145)
[2019-07-27] MEDS: levoFLOXacin 750 MG Tablet PO (06:41)
[2019-07-27] MEDS: Tobramycin Sulf 0.3% 5ML OPTH.BTL 2 DRP RIGHT EYE (06:43)
[2019-07-27 06:50] LABS: Bedside Glucose 102 mg/dL (70-110)
[2019-07-27] MEDS: Enoxaparin 40 MG/0.4 ML Syringe SC (08:20)
[2019-07-27] MEDS: Metoprolol Tartrate 25 MG Tablet PO (08:21)
[2019-07-27] MEDS: Furosemide 40 MG/4 ML Vial IV (08:21)
[2019-07-27] MEDS: Pantoprazole Sodium 40 MG Tablet PO (08:21)
[2019-07-27] MEDS: ROFLUMILAST 500 MCG TABLET PO (08:22)
[2019-07-27] MEDS: guaiFENesin 1,200 MG Tablet 1200 MG PO (08:22)
[2019-07-27] MEDS: Aspirin 81 MG TAB.CHEW PO (08:22)
[2019-07-27] MEDS: buPROPion 100 MG Tablet PO (08:22)
[2019-07-27] MEDS: predniSONE 20 MG Tablet 40 MG PO (08:22)
[2019-07-27] MEDS: Clopidogrel Bisulfate 75 MG Tablet PO (08:22)
[2019-07-27] MEDS: 0.9% NaCl Peripheral Flush Adult/Peds IV (08:24)
--- NOTE | 2019-07-27 10:18 | DCINST_ITS ---
- Discharge Diagnoses Current Active Problems: Current Active and Chronic Problems (Last Updated 07/23/19 @ 10:20 by Fredo Hsu MD) COPD exacerbation (Acute) You will use the following diet at home:: Calorie/Carbohydrate Controlled (specify 1200, 1400, etc) - 1800 latonya, Cardiac Your food should be the consistency of: Regular Discharge Activity: Return to Normal Activity Weight Bearing Status: Weight bearing as tolerated Call your doctor if you observe: Fever of 101 or Higher, Shortness of breath, Dizziness, Fainting spells, Chest pain, Increased palpitations (irregular heartbeat), Uncontrolled pain Allergies/Adverse Reactions: Allergies diazepam [From Valium] Adverse Reaction (Verified 07/20/19 22:32) Vomiting Medications to take at Discharge Aspirin [Aspirin, Baby] 81 mg PO DAILY@0800 10/04/14 Atorvastatin Calcium [Lipitor] 40 mg PO QHS 10/04/14 Clopidogrel Bisulfate [Plavix] 75 mg PO DAILY 10/04/14 Furosemide [Lasix] 40 mg PO BID 10/04/14 Multivitamins,Therapeutic [Multivitamin] 1 tab PO DAILY 10/04/14 Budesonide/Formoterol 160/4.5 [Symbicort 160/4.5 Mcg Inhaler (SP)] 2 puff INHALATION BID 02/24/15 Roflumilast [Daliresp] 500 mcg PO DAILY 02/24/15 Famotidine [Pepcid] 20 mg PO BID 08/01/15 metFORMIN HCl [Glucophage] 500 mg PO QHS 10/08/16 bupropion HCl 100 mg tablet 100 mg PO BID 10/25/17 Albuterol Aerosols [Ventolin Aerosols] 2.5 mg INHALATION Q2H PRN PRN #1 box 11/08/17 albuterol sulfate HFA 90 mcg/actuation aerosol inhaler 2 puff INHALATION Q2H PRN g 11/11/17 tiotropium bromide 18 mcg capsule with inhalation device 1 cap INHALATION DAILY 11/11/17 Cholecalciferol (VIT D3) [Vitamin D3] 1,000 unit PO DAILY tab 02/13/18 ipratropium bromide 0.02 % solution for inhalation 0.5 mg INHALATION Q4H ml 05/01/18 metformin 500 mg tablet 750 mg PO BREAKFAST tab 07/19/18 losartan 25 mg tablet 25 mg PO DAILY 09/14/18 Budesonide Aerosol [Pulmicort Respules] 0.5 mg INHALATION BID 10/14/18 Azelastine HCl 1 spray INTRANASAL BID PRN 07/24/19 Clotrimazole 10 mg MUCOUS MEMBRANE TID PRN 07/24/19 Ferrous Sulfate 325 mg PO DAILY 07/24/19 Metoprolol Tartrate [Lopressor (beta misti)] 25 mg PO BID 07/24/19 Oxygen, Home [Home Oxygen] 4 - 6 lpm NASAL CONT 07/24/19 Potassium Chloride [Klor-Con M20] 20 meq PO BID 07/24/19 Prednisone 30 mg PO DAILY #30 tab 07/27/19 levoFLOXacin tablet [Levaquin tablet] 750 mg PO DAILY@0600 #5 tab 07/27/19 The following prescriptions were given: levoFLOXacin tablet [Levaquin tablet] 750 mg PO DAILY@0600 #5 tab Transmission Status: Pending to [facility] Prednisone 30 mg PO DAILY #30 tab Transmission Status: Pending to [facility] Primary Care Physician: Kenia Matthew MD [Primary Care Provider] - Please follow up with your Primary Care Physician in: 1 week. Test Results: Test results from this visit will be discussed in further detail at your follow- up appointment, if applicable. Please Follow Up With: Zac Mendez MD When: 10 days
--- NOTE | 2019-07-27 10:37 | CASEMGMT ---
SW spoke with patient and his . They have decided he will go home. SW discussed Palliative Care with them. They agreed to a referral. SW will make a referral to Palliative Care. Swati MOORE MSW
--- NOTE | 2019-07-27 10:47 | CASEMGMT ---
JANINE called [facility] and made a referral for Palliative Care. SW also faxed over information. JANINE was under the impression that patient's can go to Palliative Care appointments and that they do not have to come out to the home. However, upon talking with Sophy at Palliative Care she said that they usually go out to patient's home. This may prevent patient from signing up with Palliative Care. Plan: d/c home with referral to Palliative Care. Swati MOORE MSW
[2019-07-27 11:11] LABS: Bedside Glucose 198 mg/dL (70-110)
--- NOTE | 2019-07-27 11:32 | PCM.PN.PUL ---
Patient Problems: Active and Suspected Problems (Last Updated 07/23/19 @ 10:20 by Fredo Hsu MD) COPD exacerbation (Acute) Subjective: Patient reports subjective improvement compared to yesterday. Patient states he continues to get shortness of breath with exertion, but feels like he would be strong enough to go home. Patient has been tolerating BiPAP at night. - Physical Exam General: Alert, Oriented x3, Cooperative, No apparent distress, - - Mild conversational dyspnea. HEENT: Atraumatic, PERRLA, EOMI, Normocephalic, - - No scleral icterus or injection noted. Nasal cannula in place Oral: Moist Mucosa, No Gingival or Mucosal Lesions/ Ulcerations Neck: Supple, No JVD, No Nodes, Trachea Midline Lungs: No rhonchi, No rales, Diminished, Wheezes, - - Symmetric expansion Cardiovascular: Regular rate, Normal S1, Normal S2, No murmurs, No rub noted, No Gallop Abdomen: Bowel Sounds Present, Soft, Non Tender, Non-Distended Extremities: No cyanosis, Clubbing, Edema Skin: No rashes, No breakdown Musculoskeletal: No Tenderness to Palpation of Joints or Extremities Lymphatic: No Cervical, Supraclavicular, or Inguinal Adenopathy Neurological: Cranial nerves II-XII grossly intact, Neuro grossly intact, Motor Exam 5/5 strength throughout Psych/Mental Status: Alert and oriented to time, place, person, mood and affect Vital Signs Temp Pulse Resp BP Pulse Ox 36.6 C 99 18 123/64 H 97 07/27/19 09:38 07/27/19 09:39 07/27/19 09:39 07/27/19 09:38 07/27/19 09:39 Oxygen Flow Rate (L/min) 4 Oxygen Delivery Method Nasal Cannula Weight: 103.1 kg Body Mass Index (BMI) 34.6 Intake and Output for Last 24 Hours 07/25/19 07/26/19 07/27/19 23:59 23:59 23:59 Intake Total 1220 / 1220 1500 / 1500 60 / 60 Output Total 2075 / 2075 2725 / 2725 Balance -855 / -855 -1225 / -1225 60 / 60 Microbiology Past 72 Hours 07/26/19 14:49 C. difficile DNA Amplification - Final Stool 07/20/19 23:20 Blood Culture - Final Blood Culture (Wb) - Right Hand No growth in 5 days. 07/20/19 23:40 Blood Culture - Final Blood Culture (Wb) - Anticubital Right No growth in 5 days. Laboratory Tests Past 24 Hrs 07/27/19 05:05 Sodium 141 Potassium 3.5 Chloride 98 Carbon Dioxide 41.0 H Anion Gap 2 L BUN 27 H Creatinine 0.96 Estim Creat Clear Calc 85.55 Est GFR (MDRD) Af Amer 103 Est GFR (MDRD) Non-Af 85 BUN/Creatinine Ratio 28.1 H Glucose 109 H Calcium 8.6 POC Glucose 07/27/19 07/27/19 07/26/19 11:03 06:42 21:29 POC Glucose 198 H 102 146 H 07/26/19 07/26/19 17:09 12:55 POC Glucose 181 H 150 H Medical Necessity - Tobacco Use Smoking Status: Former smoker Tobacco Use: Cigarettes Assessment/Plan All Active Problems (Last Updated 07/23/19 @ 10:20 by Fredo Hsu MD) Acute and chronic respiratory failure with hypoxia (Acute) COPD exacerbation (Acute) RECOMMENDATIONS: 1. Increase activity as tolerated. Oxygen to keep saturations greater than 90% at all times 2. Wean steroid therapy over the next 12 to 14 days 3. Continue AVAPS with naps and nightly. 4. Continue aggressive diuretic therapy 5. Complete 10-day course of Levaquin 6. Continue bronchodilators and steroids. Wean steroids over 12 to 14 days, but will need baseline 10 mg/day of prednisone 7. Continue PPI therapy. IMPRESSIONS: 1. Acute on chronic combined respiratory failure secondary to pseudomonal pneumonia Improved. Concern for underlying COPD exacerbation being precipitated by pulmonary infectious process. The patient signed out of the emergency department the day before presentation AGAINST MEDICAL ADVICE after inpatient admission was recommended. In addition to the aforementioned, the patient is anemic this morning with a hemoglobin of 7.9 g/dL. The patient has end-stage COPD with a history of frequent exacerbations and a significantly reduced FEV1. Patient is growing pansensitive Pseudomonas. Levaquin therapy for 7 to 10 days would be appropriate. Patient should continue AVAPS with any sleep. Patient has a similar device at home. Patient on diuretics at baseline. Patient receiving aggressive diuretic therapy and appears to be tolerating well. Replete potassium as indicated 2. Microcytic anemia The patient does have a history of anemia, but did have a hemoglobin of 7.9 g/dL on admission. Given the patient's end-stage obstructive lung disease and issues with oxygenation, he was transfused 1 unit of packed red blood cells previously. Hemoglobin remained stable this morning. Continue twice daily PPI therapy. Okay to transition to p.o. twice daily PPI from my perspective 3. Hypercarbic encephalopathy Resolved in the setting of invasive mechanical ventilatory support. Continue current supportive measures as noted above. Patient should be continued on AVAPS to avoid potential hypercarbia in the future with sleep.. 4. Acute kidney injury Resolved. Likely prerenal in etiology. Continue to monitor urine output. No current indication for renal replacement therapy. Monitor renal function on a daily basis. Patient is tolerating aggressive diuresis. We will continue this until discharge. At discharge, patient can be placed on his baseline p.o. Lasix twice daily. 5. Heart failure with preserved ejection fraction/obstructive sleep apnea/obesity/coronary artery disease/hypertension/hyperlipidemia Complicates care, management, recovery and prognosis. Home medications have been restarted. Recommend physical therapy evaluation today. Did have an extensive conversation with the patient about the possible need for an ECF on discharge given failure to improve. Patient feels that he is going to attempt going home. Patient states I can go to a senior living with my family will support me enough. Code Visit Inpatient E&M: 52499 Subs Hosp L2
--- NOTE | 2019-07-27 11:42 | PHA.DC.MC ---
Pharmacy Service has performed discharge medication reconciliation and counseling for this patient. 1. Levofloxacin 750mg PO daily for 5 days 2. Prednisone 30mg PO daily x 5 days, 20mg PO daily x 5 days, then 10mg PO daily x 5 days The patient's discharge medication list was reviewed for discrepancies and discrepancies were resolved. Home Medications Aspirin [Aspirin, Baby] 81 mg PO DAILY@0800 10/04/14 Atorvastatin Calcium [Lipitor] 40 mg PO QHS 10/04/14 Clopidogrel Bisulfate [Plavix] 75 mg PO DAILY 10/04/14 Furosemide [Lasix] 40 mg PO BID 10/04/14 Multivitamins,Therapeutic [Multivitamin] 1 tab PO DAILY 10/04/14 Budesonide/Formoterol 160/4.5 [Symbicort 160/4.5 Mcg Inhaler (SP)] 2 puff INHALATION BID 02/24/15 Roflumilast [Daliresp] 500 mcg PO DAILY 02/24/15 Famotidine [Pepcid] 20 mg PO BID 08/01/15 metFORMIN HCl [Glucophage] 500 mg PO QHS 10/08/16 bupropion HCl 100 mg tablet 100 mg PO BID 10/25/17 Albuterol Aerosols [Ventolin Aerosols] 2.5 mg INHALATION Q2H PRN PRN #1 box 11/08/17 albuterol sulfate HFA 90 mcg/actuation aerosol inhaler 2 puff INHALATION Q2H PRN g 11/11/17 tiotropium bromide 18 mcg capsule with inhalation device 1 cap INHALATION DAILY 11/11/17 Cholecalciferol (VIT D3) [Vitamin D3] 1,000 unit PO DAILY tab 02/13/18 ipratropium bromide 0.02 % solution for inhalation 0.5 mg INHALATION Q4H ml 05/01/18 metformin 500 mg tablet 750 mg PO BREAKFAST tab 07/19/18 losartan 25 mg tablet 25 mg PO DAILY 09/14/18 Budesonide Aerosol [Pulmicort Respules] 0.5 mg INHALATION BID 10/14/18 Azelastine HCl 1 spray INTRANASAL BID PRN 07/24/19 Clotrimazole 10 mg MUCOUS MEMBRANE TID PRN 07/24/19 Ferrous Sulfate 325 mg PO DAILY 07/24/19 Metoprolol Tartrate [Lopressor (beta misti)] 25 mg PO BID 07/24/19 Oxygen, Home [Home Oxygen] 4 - 6 lpm NASAL CONT 07/24/19 Potassium Chloride [Klor-Con M20] 20 meq PO BID 07/24/19 Prednisone 30 mg PO DAILY #30 tab 07/27/19 levoFLOXacin tablet [Levaquin tablet] 750 mg PO DAILY@0600 #5 tab 07/27/19 The patient was counseled on the following discharge medications and changes in medications for homegoing were reviewed. The Reason for Use, instructions for use, and potential side effects were reviewed for all new medications. The patient's questions regarding all of their medications were answered. The patient was able to verbally demonstrate an understanding of their discharge medications.
--- NOTE | 2019-07-27 12:10 | DS.PCM_ITS ---
Discharge Date and Diagnosis - Problem List Patient Problems: Active and Suspected Problems (Last Updated 07/23/19 @ 10:20 by Fredo Hsu MD) COPD exacerbation (Acute) Date of Admission: 07/21/19 Date of Discharge: 07/27/19 - Primary Discharge Diagnosis Active and Suspected Problems (Last Updated 07/23/19 @ 10:20 by Fredo Hsu MD) #1 acute on chronic combined hypoxic and hypercarbic respiratory failure, requi red intubation and mechanical ventilation. #2 acute COPD exacerbation. #3 probable mild acute on chronic diastolic CHF. #4 acute kidney injury. #5 mild acute on chronic anemia required blood transfusion. - Secondary Discharge Diagnosis Chronic Problems (Last Updated 07/23/19 @ 10:20 by Fredo Hsu MD) Tobacco abuse (Chronic) Stage 4 very severe COPD by GOLD classification (Chronic) FEV1 20% of predicted CAD (coronary artery disease) (Chronic) Type 2 diabetes mellitus (Chronic) Congestive heart failure (Chronic) MICHELLE (obstructive sleep apnea) (Chronic) Trilogy with 2 LPM oxygen bleed Anxiety (Chronic) Presence of stent in coronary artery (Chronic ~07/2006) [facility] w/stenting to prox RCA Atherosclerotic heart disease of [place] coronary artery without angina pectoris (Chronic) [facility] w/stenting to prox RCA 07/15 Chronic respiratory failure with hypoxia and hypercapnia (Chronic) COPD (chronic obstructive pulmonary disease) (Chronic) Hypertension (Chronic) Hyperlipidemia (Chronic) Hospital Course and Treatment Imaging Results: Clinical Impression(s) from Imaging Studies Chest X-Ray 07/20/19 22:29 IMPRESSION: Limited inspiration. Endotracheal tube seen with tip approximately 3.4 cm proximal to the timothy. There is a small left-sided effusion. There is mild cardiomegaly. A nasogastric tube is present with tip projecting over the distal esophagus. Electronically Signed: Del Dale MD at 23:37 EDT , Service support , KUB X-Ray 07/20/19 23:10 IMPRESSION: Enteric tube in stomach. ET tube at the timothy and should be withdrawn 2 cm. Electronically Signed: Jerod Payne MD at 23:36 EDT , Service support , Dr. Golden/Dr. Mendez, critical care and pulmonology. Operations: None Procedures: 2-D Echocardiogram, EKG, Intubation Summary of Care Provided: Patient seen and examined on day of discharge and appeared to be stable for dis charge home. He reported minimal improvement of his symptoms and remained stable on 4 L of oxygen. His vital signs are stable. This is a 58 years old male patient presented to the emergency room because of worsening shortness of breath and severe respiratory stress, found to have acute COPD exacerbation which is probably triggered by pulmonary infection and complicated by acute on chronic combined hypoxic and hypercapnic respiratory failure that required endotracheal intubation and mechanical ventilation, developed mild acute on chronic diastolic CHF. #1 acute on chronic combined respiratory failure: Initially, patient was admitted to ICU, intubated and started on mechanical ventilation. He was treated with IV steroids, IV antibiotics and bronchodilators as well as mechanical ventilation. Patient was extubated and after extubation, his respiratory status stabilized. Patient continued to complain of shortness of breath on minimal activity although he remained on oxygen at 4 L which is his baseline at home. Pneumococcal and Legionella antigen were negative. Respiratory panel for viruses were negative. Sputum culture revealed pseudomonas aeruginosa which considered to be a colonization. He was started on oral Levaquin after his continuation of IV antibiotics. Blood cultures showed no growth in 5 days. It was very hard to convince patient on discharge and he kept complaining of exertional shortness of breath which has been chronic as his oxygen requirement number increased compared to his baseline. Patient was discharged home on Levaquin 750 mg p.o. daily to complete total of 10 days of treatment, discharged on tapering course of prednisone and recommended to stay on long-term prednisone at 10 mg daily after completing the taper, plan to follow-up with pulmonary in 2 weeks. #2 acute COPD exacerbation: Treated with IV steroids, IV antibiotics and bronchodilators as well as BiPAP. Others as mentioned above. #3 probable mild acute on chronic diastolic CHF: Treated with IV Lasix. Discharged on same previous dose of Lasix and beta-blockers. #4 type 2 diabetes mellitus: Blood sugar has been stable, continued on metformin. #5 acute kidney injury: Patient received IV fluids, kidney function improved, creatinine was 1.34 on admission, discharged creatinine is 0.96. #6 CAD status post stents: Stable, no acute issues. Continued on aspirin, Plavix, statins, beta-blockers. #7 Mild acute on chronic anemia: Received 1 unit of packed RBCs. Discharge hemoglobin is 9.7 g/dL, stable. #8 obstructive sleep apnea: Continued on CPAP at home. Patient discharged home in a stable medical condition, discharged on p.o. Levaquin to complete total of 10 days of treatment, discharged on prednisone taper and instructed to keep taking prednisone 10 mg daily once he reached this dose, plan to follow-up with pulmonary in 2 weeks, follow-up with PCP in 1 week. This note was generated with [email or web address] dictation software. It may contain incorrect words, spelling, and punctuation that were not noted in checking the note before signing. Patient Problems: Active and Suspected Problems (Last Updated 07/23/19 @ 10:20 by Fredo Hsu MD) COPD exacerbation (Acute) - Physical Exam General: Alert, Oriented x3, Cooperative, No apparent distress HEENT: Atraumatic, PERRLA, EOMI Oral: Moist Mucosa, No Gingival or Mucosal Lesions/ Ulcerations Neck: Supple, No JVD, Negative Carotid Bruits, Trachea Midline, Thyroid Normal Size and Texture Lungs: No rales, Diminished, Rhonchi, Wheezes Cardiovascular: Regular rate, Regular Rhythm, Normal S1, Normal S2, PMI Normal Abdomen: Bowel Sounds Present, Soft, Non Tender, Non-Distended, No Hepato- splenomegaly, Obese Extremities: No clubbing, No cyanosis, Edema Skin: No rashes, No breakdown Lymphatic: No Cervical, Supraclavicular, or Inguinal Adenopathy Neurological: Cranial nerves II-XII grossly intact, Neuro grossly intact Psych/Mental Status: Normal Affect, Appropriate Vital Signs Temp Pulse Resp BP Pulse Ox 98 F 78 16 123/64 H 97 07/27/19 09:38 07/27/19 11:14 07/27/19 11:14 07/27/19 09:38 07/27/19 09:39 Oxygen Flow Rate (L/min) 4 Oxygen Delivery Method Nasal Cannula Weight: 227 lb 4.745 oz Body Mass Index (BMI) 34.6 Intake and Output for Last 24 Hours 10/16/19 10/17/19 10/18/19 23:59 23:59 23:59 Intake Total 1220 / 1220 1500 / 1500 60 / 60 Output Total 2074 / 2074 2725 / 2725 Balance -855 / -855 -1225 / -1225 60 / 60 Microbiology Past 72 Hours 07/26/19 14:49 C. difficile DNA Amplification - Final Stool 07/20/19 23:20 Blood Culture - Final Blood Culture (Wb) - Right Hand No growth in 5 days. 07/20/19 23:40 Blood Culture - Final Blood Culture (Wb) - Anticubital Right No growth in 5 days. Laboratory Tests Past 24 Hrs 07/27/19 05:05 Sodium 141 Potassium 3.5 Chloride 98 Carbon Dioxide 41.0 H Anion Gap 2 L BUN 27 H Creatinine 0.96 Estim Creat Clear Calc 85.55 Est GFR (MDRD) Af Amer 103 Est GFR (MDRD) Non-Af 85 BUN/Creatinine Ratio 28.1 H Glucose 109 H Calcium 8.6 POC Glucose 07/27/19 07/27/19 07/26/19 11:03 06:42 21:29 POC Glucose 198 H 102 146 H 07/26/19 07/26/19 17:09 12:55 POC Glucose 181 H 150 H Discharge Activity: Return to Normal Activity Weight Bearing Status: Weight bearing as tolerated Call your doctor if you observe: Fever of 101 or Higher, Shortness of breath, Dizziness, Fainting spells, Chest pain, Increased palpitations (irregular heartbeat), Uncontrolled pain Home Medications: Medications to take at Discharge Aspirin [Aspirin, Baby] 81 mg PO DAILY@0800 10/04/14 Atorvastatin Calcium [Lipitor] 40 mg PO QHS 10/04/14 Clopidogrel Bisulfate [Plavix] 75 mg PO DAILY 10/04/14 Furosemide [Lasix] 40 mg PO BID 10/04/14 Multivitamins,Therapeutic [Multivitamin] 1 tab PO DAILY 10/04/14 Budesonide/Formoterol 160/4.5 [Symbicort 160/4.5 Mcg Inhaler (SP)] 2 puff INHALATION BID 02/24/15 Roflumilast [Daliresp] 500 mcg PO DAILY 02/24/15 Famotidine [Pepcid] 20 mg PO BID 08/01/15 metFORMIN HCl [Glucophage] 500 mg PO QHS 10/08/16 bupropion HCl 100 mg tablet 100 mg PO BID 10/25/17 Albuterol Aerosols [Ventolin Aerosols] 2.5 mg INHALATION Q2H PRN PRN #1 box 11/08/17 albuterol sulfate HFA 90 mcg/actuation aerosol inhaler 2 puff INHALATION Q2H PRN g 11/11/17 tiotropium bromide 18 mcg capsule with inhalation device 1 cap INHALATION DAILY 11/11/17 Cholecalciferol (VIT D3) [Vitamin D3] 1,000 unit PO DAILY tab 02/13/18 ipratropium bromide 0.02 % solution for inhalation 0.5 mg INHALATION Q4H ml 05/01/18 metformin 500 mg tablet 750 mg PO BREAKFAST tab 07/19/18 losartan 25 mg tablet 25 mg PO DAILY 09/14/18 Budesonide Aerosol [Pulmicort Respules] 0.5 mg INHALATION BID 10/14/18 Azelastine HCl 1 spray INTRANASAL BID PRN 07/24/19 Clotrimazole 10 mg MUCOUS MEMBRANE TID PRN 07/24/19 Ferrous Sulfate 325 mg PO DAILY 07/24/19 Metoprolol Tartrate [Lopressor (beta misti)] 25 mg PO BID 07/24/19 Oxygen, Home [Home Oxygen] 4 - 6 lpm NASAL CONT 07/24/19 Potassium Chloride [Klor-Con M20] 20 meq PO BID 07/24/19 Prednisone 30 mg PO DAILY #30 tab 07/27/19 levoFLOXacin tablet [Levaquin tablet] 750 mg PO DAILY@0600 #5 tab 07/27/19 Following Prescrptions Were Given to Patient: levoFLOXacin tablet [Levaquin tablet] 750 mg PO DAILY@0600 #5 tab Transmission Status: Received by [facility] Prednisone 30 mg PO DAILY #30 tab Transmission Status: Received by [facility] Primary Care Physician: Kenia Matthew MD [Primary Care Provider] - Please follow up with your Primary Care Physician in: 1 week. Please Follow Up With: Zac Mendez MD When: 10 days Please Follow Up With: Kenia Matthew MD Disposition: Home Minutes spent on discharge:: 34 Patient Condition:: Stable Medical Necessity - Tobacco Use Smoking Status: Former smoker Tobacco Use: Cigarettes Meaningful Use Info Meaningful Use Diagnoses (Choose all that apply): None applicable Code Visit Inpatient E&M: 83521 Disch Hosp
--- NOTE | 2019-07-30 13:59 | CASEMGMT ---
ERIK GUTIERREZ DC PHONE CALL DC DATE: 07/27/19 DC Disposition: Home Diagnosis on Discharge: COPD Exacerbation LACE/STRATA: 14 Intro role of CM to patient via phone. Reviewed medications, antibiotic schedule and f/u appointments. Pt states he has all new medications and understands how to take them. Reviewed f/u appts. Pt is able to keep these appts. No questions re: instructions and no care improvement suggestions were given by pt. Shyam SORIANO RN ACM
== END 2019-07-27 12:44 | disposition home or self-care (01) | DRG 208 ==
LOC: ED 07-21 00:29 → ICU 07-21 01:12 → PCU 07-23 11:10
PROVIDERS: Internal Medicine; Internal Medicine Critical Care Medicine; Admitting Provider Internal Medicine; Emergency Provider Emergency Medicine; Family Provider Internal Medicine; PCP Internal Medicine; Visit Provider Hospitalist
DX: J96.21 Acute and chronic respiratory failure with hypoxia (principal); I50.33 Acute on chronic diastolic (congestive) heart failure; J44.1 Chronic obstructive pulmonary disease with (acute) exacerbation; G93.40 Encephalopathy, unspecified; N17.9 Acute kidney failure, unspecified; J96.22 Acute and chronic respiratory failure with hypercapnia; I25.10 Atherosclerotic heart disease of native coronary artery without angina pectoris; E78.5 Hyperlipidemia, unspecified; F17.211 Nicotine dependence, cigarettes, in remission; I11.0 Hypertensive heart disease with heart failure; F41.9 Anxiety disorder, unspecified; Z99.81 Dependence on supplemental oxygen; G47.33 Obstructive sleep apnea (adult) (pediatric); D50.9 Iron deficiency anemia, unspecified; E11.9 Type 2 diabetes mellitus without complications; Z95.5 Presence of coronary angioplasty implant and graft; Z79.84 Long term (current) use of oral hypoglycemic drugs; Z79.899 Other long term (current) drug therapy; Z79.82 Long term (current) use of aspirin
CPT/HCPCS: 31500; 31720; 36569; 36600; 51702; 71045; 74018; 80048; 80053; 80061; 81001; 82274; 82728; 82803; 82962; 83036; 83540; 83550; 83605; 83735; 83880; 84100; 84439; 84443; 84481; 84484; 85025; 85027; 85610; 85730; 86850; 86900; 86901; 86920; 86922; 87040; 87070; 87077; 87086; 87088; 87184; 87186; 87205; 87449; 87493; 87633; 87641; 93005; 93306; 94002; 94003; 94640; 94660; 94770; 95831; 96365; 96374; 97161; 97165; 97530; 97535; 97802; 97803; 99251; 99285; J1756; J7030; J7040; J7050; P9016; Q9957; A4216; C8929; G0463; J0330; J1940; J2405

== ENCOUNTER 2020-01-24 06:06 | Inpatient (IN) | payer MEDICARE, SELFPAY ==
[2019-10-01 11:22] VITALS: BMI 32.8
[2020-01-24] VITALS (28 sets, daily range): BP systolic 97–160; BP diastolic 49–95; PULSE 84–115; RESP 12–38; TEMP 36–37.1; O2SAT 89–98; BMI 32.4; BMI 31.6; BMI 31.7
--- NOTE | 2020-01-24 06:15 | RAD_ITS ---
STUDY: X-RAY CHEST REASON FOR EXAM: Male, 59 years old. sob x 2 days, getting worse this morning. hx copd TECHNIQUE: Single AP portable view of the chest. COMPARISON: 07/20/2019 FINDINGS: There is hyperinflation of the lungs consistent with chronic obstructive lung disease (COPD). There is no demonstrated pleural abnormality. There is moderate cardiac enlargement. Normal mediastinum and kim. Normal visualized pulmonary arteries. Normal visualized aortic arch and descending thoracic aorta. Normal visualized thoracic spine. Normal visualized ribs, clavicles, and shoulders. There is no demonstrated abnormality of the visualized soft tissue structures of the upper abdomen. RAD/Chest 1 View (Portable) IMPRESSION: Emphysema without pneumonia or atelectasis. Electronically Signed: Omid Graham MD at 7:44 EDT Tel , Service support ,
--- NOTE | 2020-01-24 06:15 | EKG12_ITS ---
Test Reason : SOB Blood Pressure : / mmHG Vent. Rate : 100 BPM Atrial Rate : 100 BPM P-R Int : 122 ms QRS Dur : 088 ms QT Int : 332 ms P-R-T Axes : 071 060 043 degrees QTc Int : 428 ms Sinus rhythm with occasional Premature ventricular complexes Otherwise normal ECG Confirmed by PENELOPE ROTHMAN, KERVIN ([id number]), editorial director VEE ALEXANDRA ([id number]) on 01/29/2020 9:14:16 AM Referred By: MARIAM Confirmed By:VALERY NEGRETE MD
[2020-01-24] MEDS: MethylPREDNISolone 125 MG/2 ML Vial IV (06:22)
--- NOTE | 2020-01-24 06:26 | ED.VISSUMM ---
- ER Visit Summary Date of Service: 01/24/20 Chief Complaint: Shortness of breath History of Present Illness: The patient is a [address] Keyes, Dr. Mendez, and Dr. Anthony. He has a history of severe COPD. He reports his shortness of breath is gradually gotten worse over the past 2 days. States it is severe. Is getting minimal relief with his albuterol. He reports that he has a chronic cough that is productive of more sputum than usual. This is green/yellow/[place]. There is been no blood. He denies any fever or chills. No chest pain. Reports he has moderate headache and generalized weakness. Patient reports that he has not left the house since the coronavirus pandemic has begun. He also has not had anybody come into the home. He denies any risk of exposure to coronavirus. Physical Examination: Vitals: 96.8, 160/89, 115, 38, 90% on 4 L nasal cannula which is hypoxic General: Well-nourished and well-developed. Head: Normocephalic atraumatic. Neck: Supple, no lymphadenopathy. No JVD. Nontender. Cardiovascular: Tachycardic regular rhythm. No murmurs. Respiratory: Severe respiratory distress with minimal air movement. Abdominal: Soft, nontender, nondistended, normal bowel sounds. No guarding, rebound, or peritoneal signs. Back: Nontender. Extremities: Nontender, 1+ pitting edema lower extremities bilaterally. Skin: Normal color, no rash. Neurologic: Alert and oriented ?3. Cranial nerves II through XII are intact. Normal strength and sensation. Psych: Normal affect. Test Results: EKG is sinus tachycardia [address] changes and artifact. CBC shows a white count 25.1 with a hemoglobin of 12.3, 7 neutrophils 77 lymphocytes of 11. Chem-7 shows a CO2 of 34, creatinine 1.31, glucose 197. Creatinine ranged between 1.03?1.43 in 2019. Lactic acid is 1.5. Troponin is negative. ABG and chest x-ray are pending. Emergency Department Course and Treatment: Patient was in severe respiratory distress upon arrival. Is given albuterol and Atrovent aerosols. He was given Solu-Medrol IV. He was placed on BiPAP. I feel that he is at low risk for coronavirus and that the above measures may help to avoid placing him on a ventilator which he may never get off of. Treatment Plan: The patient will be discussed with Dr. Mendez and the hospitalist. He will be admitted for further evaluation and treatment. Disposition: Admitted in serious condition. Impression: 1. COPD exacerbation. 2. Acute on chronic respiratory failure on BiPAP. 3. Critical care time 33 minutes. This note was generated with [employer] dictation software. It may contain incorrect words, spelling, and punctuation that were not noted in review of the chart prior to signing ED Disposition - Plan for ED Patient: Referrals: Kenia Matthew MD [Primary Care Provider] -
[2020-01-24 06:31] LABS: Absolute Lymphocyte Count 2.84 X10^3/uL (0.83-4.51); Absolute Neutrophil Count 19.3 X10^3/uL (2.0-7.7); Basophil# 0.07 X10^3/uL; Basophil% 0.3 % (0-1); Differential Indicated SCAN CRITERIA MET; Eosinophil# 0.19 X10^3/uL; Eosinophils% 0.8 % (0-5); Hematocrit 42.6 % (40-54); Hemoglobin 12.3 g/dL (13.0-16.5); Lymphocyte # 2.84 X10^3/ul (4.0); Lymphocyte % 11.3 % (19-41); Mean Corp Hgb Conc 28.9 g/dL (32-36); Mean Corpuscular Hgb 24.1 pg (27.0-32.0); Mean Corpuscular Volume 83.5 fL (80-94); Mean Platelet Vol. 8.9 fl (6.2-12.0); Monocyte# 2.47 X10^3/uL; Monocyte% 9.9 % (0-10); NRBC Flagged by Analyzer 0 % (0-5); Neutrophil # 19.29 X10^3/uL (2.7-7.7); Neutrophil % 76.9 % (47-70); POSITIVE DIFFERENTIAL YES; Platelet Count 401 K/mm3 (150-450); RBC Distribution Width CV 16.1 % (11.6-14.6); RBC Distribution Width SD 48.9 fl (35.1-43.9); White Blood Count 25.1 K/mm3 (4.4-11.0)
[2020-01-24] MEDS: Ipratropium/Albuterol Sulfate 3 ML AMPUL.NEB INHALATION ×4 (06:36→23:02)
[2020-01-24 06:44] LABS: Differential Comment SCANNED
[2020-01-24 06:45] LABS: Stomatocyte RARE
[2020-01-24 06:47] LABS: Anion Gap 2 (5-15); BUN 16 mg/dL (7-18); BUN/Creat Ratio 12.2 RATIO (10-20); Chloride 103 mmol/L (98-107); Creatinine, Serum 1.31 mg/dL (0.70-1.30); EST Glomerular Filtration Rate 59 mL/min (>60); Est Glom Filt Rate - Afr Amer 72 mL/min (>60); Estimated Creatinine Clearance 63.87 ml/min; Glucose 197 mg/dL (74-106); Sodium Level 139 mmol/L (136-145)
[2020-01-24] MEDS: levoFLOXacin IV 750 MG/150 ML BAG 100 MG IV (06:48)
[2020-01-24] MEDS: Albuterol 2.5 MG/3 ML VIAL.NEB. INHALATION ×2 (06:52)
[2020-01-24 06:54] LABS: Lactic Acid 1.5 mmol/L (0.4-1.9)
--- NOTE | 2020-01-24 07:43 | ED.RN ---
HOSPITALIST PAGED FOR DR GAR
--- NOTE | 2020-01-24 07:45 | PCM.HP.STD ---
<Yadira Lee - Last Filed: 01/24/20 07:45> History of Present Illness The patient is a 59 year old M [] Past Medical History Past Medical History (Chronic Problems): Chronic Problems (Last Reviewed 10/01/19 @ 11:31 by Chikis Mojica) Tobacco abuse (Chronic) Stage 4 very severe COPD by GOLD classification (Chronic) FEV1 20% of predicted CAD (coronary artery disease) (Chronic) Type 2 diabetes mellitus (Chronic) Congestive heart failure (Chronic) MICHELLE (obstructive sleep apnea) (Chronic) Trilogy with 2 LPM oxygen bleed Anxiety (Chronic) Presence of stent in coronary artery (Chronic ~07/2006) [facility] w/stenting to prox RCA Atherosclerotic heart disease of [place] coronary artery without angina pectoris (Chronic) [facility] w/stenting to prox RCA 07/15 Chronic respiratory failure with hypoxia and hypercapnia (Chronic) COPD (chronic obstructive pulmonary disease) (Chronic) Hypertension (Chronic) Hyperlipidemia (Chronic) Medical History: Medical History (Last Reviewed 10/01/19 @ 11:31 by Chikis Mojica) Tobacco abuse (Chronic) Z72.0 Stage 4 very severe COPD by GOLD classification (Chronic) J44.9 FEV1 20% of predicted CAD (coronary artery disease) (Chronic) I25.10 Type 2 diabetes mellitus (Chronic) E11.9 Congestive heart failure (Chronic) I50.9 MICHELLE (obstructive sleep apnea) (Chronic) G47.33 Trilogy with 2 LPM oxygen bleed Anxiety (Chronic) F41.9 Hypertension (Chronic) I10 Hyperlipidemia (Chronic) E78.5 Anxiety (Inactive) F41.9 Coronary artery disease (Inactive) I25.10 Status post stent Allergies diazepam [From Valium] Adverse Reaction (Verified 01/24/20 06:08) Vomiting Home Medications: Ambulatory Orders Medication Instructions Recorded Aspirin [Aspirin, Baby] 81 mg PO DAILY@0800 10/04/14 Atorvastatin Calcium [Lipitor] 40 mg PO QHS 10/04/14 Clopidogrel Bisulfate [Plavix] 75 mg PO DAILY 10/04/14 Furosemide [Lasix] 40 mg PO BID 10/04/14 Multivitamins,Therapeutic 1 tab PO DAILY 10/04/14 [Multivitamin] Budesonide/Formoterol 160/4.5 2 puff INHALATION BID 02/24/15 [Symbicort 160/4.5 Mcg Inhaler (SP)] Roflumilast [Daliresp] 500 mcg PO DAILY 02/24/15 Famotidine [Pepcid] 20 mg PO BID 08/01/15 bupropion HCl 100 mg tablet 100 mg PO BID 10/25/17 Albuterol Aerosols [Ventolin 2.5 mg INHALATION Q2H PRN PRN #1 11/08/17 Aerosols] box albuterol sulfate 90 mcg/actuation 2 puff INHALATION Q2H PRN g 11/11/17 aerosol inhaler tiotropium bromide 18 mcg capsule 1 cap INHALATION DAILY 11/11/17 with inhalation device Cholecalciferol (VIT D3) [Vitamin 1,000 unit PO DAILY tab 02/13/18 D3] ipratropium bromide 0.02 % 0.5 mg INHALATION Q4H ml 05/01/18 solution for inhalation losartan 25 mg tablet 25 mg PO DAILY 09/14/18 Budesonide Aerosol [Pulmicort 0.5 mg INHALATION BID 10/14/18 Respules] Azelastine HCl 1 spray INTRANASAL BID PRN 07/24/19 Clotrimazole 10 mg MUCOUS MEMBRANE TID PRN 07/24/19 Ferrous Sulfate 325 mg PO DAILY 07/24/19 Oxygen, Home [Home Oxygen] 4 - 6 lpm NASAL CONT 07/24/19 Potassium Chloride [Klor-Con M20] 20 meq PO BID 07/24/19 prednisone 10 mg tablet 10 mg PO QDAY #30 tab 08/27/19 metformin 500 mg tablet 250 mg PO DAILY tab 10/01/19 metformin 500 mg tablet 500 mg PO BREAKFAST tab 10/01/19 metoprolol tartrate 25 mg tablet 25 mg PO BID #180 tab 12/13/19 Surgical History: Surgical History (Last Reviewed 10/01/19 @ 11:31 by Chikis Mojica) Presence of stent in coronary artery (Chronic) Onset Date: ~07/2006 Z95.5 [facility] w/stenting to prox RCA Surgical History: - - Rotator cuff surgery Psychiatric History: No pertinent psych hx Smoking Status: Former smoker Tobacco Use: Cigarettes - *Family History Maternal Family History: Family History (Last Reviewed 10/01/19 @ 11:31 by Chikis Mojica) Mother Diabetes Father Heart disease CVA (cerebral vascular accident) Brother Diabetes Asthma History Items: Clotting Disorder - Mother with history of PE following an ankle surgery Paternal Family History: Family History (Last Reviewed 10/01/19 @ 11:31 by Chikis Mojica) Mother Diabetes Father Heart disease CVA (cerebral vascular accident) Brother Diabetes Asthma History Items: Heart Disease - Physical Exam Vitals/I&O's: Vital Signs Temp Pulse Resp BP Pulse Ox 98.4 F 100 20 H 102/56 L 94 01/24/20 06:54 01/24/20 07:13 01/24/20 07:13 01/24/20 07:13 01/24/20 07:13 Oxygen Flow Rate (L/min) 5 Oxygen Delivery Method Bi-pap Weight: 232 lb 12.93 oz Body Mass Index (BMI) 32.4 Intake and Output for Last 24 Hours 01/22/20 01/23/20 01/24/20 23:59 23:59 23:59 Intake Total 416.25 / 416.25 Balance 416.25 / 416.25 Laboratory Results 01/24/20 06:20: WBC 25.1 H, RBC 5.10, Hgb 12.3 L, Hct 42.6, MCV 83.5, MCH 24.1 L, MCHC 28.9 L, RDW Std Deviation 48.9 H, RDW Coeff of Asael 16.1 H, Plt Count 401, MPV 8.9, Immature Gran % (Auto) 0.800, Neut % (Auto) 76.9 H, Lymph % (Auto) 11.3 L, Parker % (Auto) 9.9, Eos % (Auto) 0.8, Baso % (Auto) 0.3, Absolute Neuts (auto) 19.3 H, Absolute Lymphs (auto) 2.84, Nucleated RBC % 0, Differential Comment SCANNED, Diff Path Review May foll, Stomatocytes RARE 01/24/20 06:20: Sodium 139, Potassium 4.0, Chloride 103, Carbon Dioxide 34.0 H, Anion Gap 2 L, BUN 16, Creatinine 1.31 H, Estim Creat Clear Calc 63.87, Est GFR (MDRD) Af Amer 72, Est GFR (MDRD) Non-Af 59 L, BUN/Creatinine Ratio 12.2, Glucose 197 H, Calcium 9.0, Troponin I < 0.015 01/24/20 06:20: Lactic Acid 1.5 Current Medications Sodium Chloride () 500 mls @ 999 mls/hr IV .Q31M ONE Last Infusion: 01/24/20 06:47 Dose: 0 mls/hr Documented by: Levofloxacin (Levaquin Iv) 750 mg in 150 mls @ 100 mls/hr IV X1 ONE Stop: 01/24/20 08:05 Last Admin: 01/24/20 06:48 Dose: 100 mls/hr Documented by: Assessment/Plan All Active Problems (Last Reviewed 10/01/19 @ 11:31 by Chikis Mojica) Acute and chronic respiratory failure with hypoxia (Acute) COPD exacerbation (Acute) <Kings Aleman - Last Filed: 01/24/20 08:21> Problem List (1) COPD exacerbation Status: Acute History of Present Illness The patient is a 59 year old M [] Past Medical History Medical History: Medical History (Last Reviewed 10/01/19 @ 11:31 by Chikis Mojica) Tobacco abuse (Chronic) Z72.0 Stage 4 very severe COPD by GOLD classification (Chronic) J44.9 FEV1 20% of predicted CAD (coronary artery disease) (Chronic) I25.10 Type 2 diabetes mellitus (Chronic) E11.9 Congestive heart failure (Chronic) I50.9 MICHELLE (obstructive sleep apnea) (Chronic) G47.33 Trilogy with 2 LPM oxygen bleed Anxiety (Chronic) F41.9 Hypertension (Chronic) I10 Hyperlipidemia (Chronic) E78.5 Anxiety (Inactive) F41.9 Coronary artery disease (Inactive) I25.10 Status post stent Allergies diazepam [From Valium] Adverse Reaction (Verified 01/24/20 06:08) Vomiting Surgical History: Surgical History (Last Reviewed 10/01/19 @ 11:31 by Chikis Mojica) Presence of stent in coronary artery (Chronic) Onset Date: ~07/2006 Z95.5 [facility] w/stenting to prox RCA - *Family History Maternal Family History: Family History (Last Reviewed 10/01/19 @ 11:31 by Chikis Moijca) Mother Diabetes Father Heart disease CVA (cerebral vascular accident) Brother Diabetes Asthma Paternal Family History: Family History (Last Reviewed 10/01/19 @ 11:31 by Chikis Mojica) Mother Diabetes Father Heart disease CVA (cerebral vascular accident) Brother Diabetes Asthma - Physical Exam Vitals/I&O's: Vital Signs Temp Pulse Resp BP Pulse Ox 98.4 F 100 20 H 102/56 L 94 01/24/20 06:54 01/24/20 07:13 01/24/20 07:13 01/24/20 07:13 01/24/20 07:13 Oxygen Flow Rate (L/min) 5 Oxygen Delivery Method Bi-pap Weight: 105.6 kg Body Mass Index (BMI) 32.4 Intake and Output for Last 24 Hours 01/22/20 01/23/20 01/24/20 23:59 23:59 23:59 Intake Total 416.25 / 416.25 Balance 416.25 / 416.25 Laboratory Results 01/24/20 06:20: WBC 25.1 H, RBC 5.10, Hgb 12.3 L, Hct 42.6, MCV 83.5, MCH 24.1 L, MCHC 28.9 L, RDW Std Deviation 48.9 H, RDW Coeff of Asael 16.1 H, Plt Count 401, MPV 8.9, Immature Gran % (Auto) 0.800, Neut % (Auto) 76.9 H, Lymph % (Auto) 11.3 L, Parker % (Auto) 9.9, Eos % (Auto) 0.8, Baso % (Auto) 0.3, Absolute Neuts (auto) 19.3 H, Absolute Lymphs (auto) 2.84, Nucleated RBC % 0, Differential Comment SCANNED, Diff Path Review February foll, Stomatocytes RARE 01/24/20 06:20: Sodium 139, Potassium 4.0, Chloride 103, Carbon Dioxide 34.0 H, Anion Gap 2 L, BUN 16, Creatinine 1.31 H, Estim Creat Clear Calc 63.87, Est GFR (MDRD) Af Amer 72, Est GFR (MDRD) Non-Af 59 L, BUN/Creatinine Ratio 12.2, Glucose 197 H, Calcium 9.0, Troponin I < 0.015 01/24/20 06:20: Lactic Acid 1.5 01/24/20 07:34: pH 7.40, Bicarbonate Actual 33.3 H, POC Total CO2 35, Base Excess 8 H, O2 Saturation 93 L, ABG pCO2 54.3 H, ABG pO2 68 L Current Medications Sodium Chloride () 500 mls @ 999 mls/hr IV .Q31M ONE Last Infusion: 01/24/20 06:47 Dose: 0 mls/hr Documented by: Levofloxacin (Levaquin Iv) 750 mg in 150 mls @ 100 mls/hr IV X1 ONE Stop: 01/24/20 08:05 Last Admin: 01/24/20 06:48 Dose: 100 mls/hr Documented by: Assessment/Plan Patient turned over to me from the overnight physician. Patient treated with BiPAP, Solu-Medrol and IV antibiotics. Patient is resting much more comfortably. His respiratory status is significantly improved. His blood gas showed a pH of 7.39 with a PCO2 of 54 and a PO2 of 68 on 30% oxygen. His chest x-ray showed chronic changes consistent with COPD but no acute process. Cardiomegaly. No obvious infiltrate. No pneumothorax. I spoke to the hospitalist the patient will be admitted. (1) COPD flare (2) Respiratory failure
[2020-01-24 07:46] LABS: Base Excess 8 mmol/L (-2 to +2); Bicarbonate 33.3 mmol/L (22-26); PO2 68 mmHG (75-100); SO2 93 % (95-99); Total Carbon Dioxide 35 mmol/L; pCO2 54.3 mmHg (35-45)
[2020-01-24 07:50] LABS: Allen Test POS; Blood Gas Specimen Type ART; EPAP 10; FI02 30; IPAP 20; O2 Delivery Device Bi Pap; RR 12; SITE R RADIAL; Time Given 730
[2020-01-24 09:46] LABS: Pathologist Review Reviewed
--- NOTE | 2020-01-24 10:23 | HP.PCM_ITS ---
History of Present Illness Date of Admission: 01/24/20 Chief Complaint: shortness of breath The patient is a 59 year old M with an extensive PMH as outlined. He was admitted via the ED on 01/24/2020 with a complaint of shortness of breath. Patient has chronic respiratory failure due to COPD and is usually on 4L of oxygen at home. He says his shortness of breath started worsening 2 days ago, with associated subjective fever and chills, as well as wheezing. His cough was productive of greenish sputum, but this is chronic. He denied any palpitations, dizziness, chest pain, nausea or vomiting. Review of systems was otherwise negative. He denies any exposure to anyone with coronavirus and says he has not traveled anywhere of late. He has only been around his grandchildren and see that his grandson has been sick and he thought it was due to allergies. On admission in the ED, he was in severe respiratory distress, and was put on BIPAP immediately.n Labs showed wbc of 25.1, with Hb of 12.3, and bicarb of 34, Cr of 1.31. Cr was 1.31 nad lactic acid was 1.5. Initial troponin was negative. CXR showed evidence of emphysema without pneumonia or atelectasis. EKG showed sinus tachycardia with heart rate of [address] changes. ABG done while patient was on BiPAP showed pH of 7.4 with oxygen saturation of 93 and PCO2 of 54.3 and PO2 of 68. He is being admitted to be managed for acute on chronic hypoxic respiratory failure due to COPD exacerbation, and COVID rule out.[] Past Medical History Past Medical History (Chronic Problems): Chronic Problems (Last Reviewed 10/01/19 @ 11:31 by Chikis Mojica) Tobacco abuse (Chronic) Stage 4 very severe COPD by GOLD classification (Chronic) FEV1 20% of predicted CAD (coronary artery disease) (Chronic) Type 2 diabetes mellitus (Chronic) Congestive heart failure (Chronic) MICHELLE (obstructive sleep apnea) (Chronic) Trilogy with 2 LPM oxygen bleed Anxiety (Chronic) Presence of stent in coronary artery (Chronic ~07/2006) [facility] w/stenting to prox RCA Atherosclerotic heart disease of [place] coronary artery without angina pectoris (Chronic) [facility] w/stenting to prox RCA 07/15 Chronic respiratory failure with hypoxia and hypercapnia (Chronic) COPD (chronic obstructive pulmonary disease) (Chronic) Hypertension (Chronic) Hyperlipidemia (Chronic) Medical History: Medical History (Last Reviewed 10/01/19 @ 11:31 by Chikis Mojica) Tobacco abuse (Chronic) Z72.0 Stage 4 very severe COPD by GOLD classification (Chronic) J44.9 FEV1 20% of predicted CAD (coronary artery disease) (Chronic) I25.10 Type 2 diabetes mellitus (Chronic) E11.9 Congestive heart failure (Chronic) I50.9 MICHELLE (obstructive sleep apnea) (Chronic) G47.33 Trilogy with 2 LPM oxygen bleed Anxiety (Chronic) F41.9 Hypertension (Chronic) I10 Hyperlipidemia (Chronic) E78.5 Anxiety (Inactive) F41.9 Coronary artery disease (Inactive) I25.10 Status post stent Allergies diazepam [From Valium] Adverse Reaction (Verified 01/24/20 06:08) Vomiting Home Medications: Ambulatory Orders Medication Instructions Recorded Aspirin [Aspirin, Baby] 81 mg PO DAILY@0800 10/04/14 Atorvastatin Calcium [Lipitor] 40 mg PO QHS 10/04/14 Clopidogrel Bisulfate [Plavix] 75 mg PO DAILY 10/04/14 Furosemide [Lasix] 40 mg PO BID 10/04/14 Multivitamins,Therapeutic 1 tab PO DAILY 10/04/14 [Multivitamin] Budesonide/Formoterol 160/4.5 2 puff INHALATION BID 02/24/15 [Symbicort 160/4.5 Mcg Inhaler (SP)] Roflumilast [Daliresp] 500 mcg PO DAILY 02/24/15 Famotidine [Pepcid] 20 mg PO BID 08/01/15 bupropion HCl 100 mg tablet 100 mg PO BID 10/25/17 Albuterol Aerosols [Ventolin 2.5 mg INHALATION Q2H PRN PRN #1 11/08/17 Aerosols] box albuterol sulfate 90 mcg/actuation 2 puff INHALATION Q2H PRN g 11/11/17 aerosol inhaler tiotropium bromide 18 mcg capsule 1 cap INHALATION DAILY 11/11/17 with inhalation device Cholecalciferol (VIT D3) [Vitamin 1,000 unit PO DAILY tab 02/13/18 D3] ipratropium bromide 0.02 % 0.5 mg INHALATION Q4H ml 05/01/18 solution for inhalation losartan 25 mg tablet 25 mg PO DAILY 09/14/18 Budesonide Aerosol [Pulmicort 0.5 mg INHALATION BID 10/14/18 Respules] Azelastine HCl 1 spray INTRANASAL BID PRN 07/24/19 Clotrimazole 10 mg MUCOUS MEMBRANE TID PRN 07/24/19 Ferrous Sulfate 325 mg PO DAILY 07/24/19 Oxygen, Home [Home Oxygen] 4 - 6 lpm NASAL CONT 07/24/19 Potassium Chloride [Klor-Con M20] 20 meq PO BID 07/24/19 prednisone 10 mg tablet 10 mg PO QDAY #30 tab 08/27/19 metformin 500 mg tablet 250 mg PO DAILY tab 10/01/19 metformin 500 mg tablet 500 mg PO BREAKFAST tab 10/01/19 metoprolol tartrate 25 mg tablet 25 mg PO BID #180 tab 12/13/19 Surgical History: Surgical History (Last Reviewed 10/01/19 @ 11:31 by Chikis Mojica) Presence of stent in coronary artery (Chronic) Onset Date: ~07/2006 Z95.5 [facility] w/stenting to prox RCA Surgical History: - - Rotator cuff surgery Psychiatric History: No pertinent psych hx Lives: With Family Smoking Status: Former smoker Tobacco Use: Cigarettes - quit 3 years ago Alcohol: None Drugs: None - *Family History Maternal Family History: Family History (Last Reviewed 10/01/19 @ 11:31 by Chikis Mojica) Mother Diabetes Father Heart disease CVA (cerebral vascular accident) Brother Diabetes Asthma History Items: Clotting Disorder - Mother with history of PE following an ankle surgery Paternal Family History: Family History (Last Reviewed 10/01/19 @ 11:31 by Chikis Mojica) Mother Diabetes Father Heart disease CVA (cerebral vascular accident) Brother Diabetes Asthma History Items: Heart Disease Review of Systems Constitutional: Denies: Chills, Fever, Malaise, Weakness, Weight Change Eyes: Denies: Blurred vision HEENT: Denies: Head Aches, Sinus Congestion, Sinus Drainage Cardiovascular: Denies: Chest Pain, Light Headedness, Orthopnea, Palpitations Respiratory: Reports: Cough, Shortness of Breath, Shortness of breath at rest, Shortness of breath upon exertion, Sputum production, Wheezing Gastrointestinal: Denies: Abdominal Pain, Nausea, Vomiting Genitourinary: Denies: Dysuria Musculoskeletal: Denies: Joint Pain, Joint Tenderness Skin: Denies: Rash, Wounds Neurological: Denies: Numbness, Tingling, Focal weakness Psychiatric: Denies: Anxiety, Depression, Homicidal Ideations, Suicidal Ideations Hematologic/ Lymphatic: Denies: Easy Bruising, Easy Bleeding VTE Information - Inpt Only VTE Present on Admission: No VTE Pharm Prophylaxis ordered?: Yes - Physical Exam Vitals/I&O's: Vital Signs Temp Pulse Resp BP Pulse Ox 98.6 F 92 20 H 101/59 L 96 01/24/20 08:00 01/24/20 08:00 01/24/20 08:00 01/24/20 08:00 01/24/20 08:00 Oxygen Flow Rate (L/min) 5 Oxygen Delivery Method Bi-pap Weight: 227 lb 3.193 oz Body Mass Index (BMI) 31.6 Intake and Output for Last 24 Hours 01/22/20 01/23/20 01/24/20 23:59 23:59 23:59 Intake Total 650.00 / 650.00 Balance 650.00 / 650.00 General: Alert, Oriented x3, Cooperative, No apparent distress HEENT: Atraumatic, PERRLA, EOMI, Normocephalic Oral: Moist Mucosa Neck: Supple, No JVD, Negative Carotid Bruits Lungs: - - diminished breath sounds bibasally, mild expiratory wheezing. No crackles. on BIPAP Cardiovascular: Regular rate, Regular Rhythm, Normal S1, Normal S2, No murmurs Abdomen: Bowel Sounds Present, Soft, Non Tender, Non-Distended, No Hepato- splenomegaly Extremities: No clubbing, No cyanosis, No edema, Capillary Refill Less than 3 Seconds Skin: No rashes, No breakdown Musculoskeletal: No Tenderness to Palpation of Joints or Extremities Lymphatic: No Cervical, Supraclavicular, or Inguinal Adenopathy Neurological: Cranial nerves II-XII grossly intact, Neuro grossly intact, Motor Exam 5/5 strength throughout Psych/Mental Status: Normal Affect, Appropriate, Alert and oriented to time, place, person, mood and affect Laboratory Results 01/24/20 06:20: WBC 25.1 H, RBC 5.10, Hgb 12.3 L, Hct 42.6, MCV 83.5, MCH 24.1 L , MCHC 28.9 L, RDW Std Deviation 48.9 H, RDW Coeff of Asael 16.1 H, Plt Count 401, MPV 8.9, Immature Gran % (Auto) 0.800, Neut % (Auto) 76.9 H, Lymph % (Auto) 11.3 L, Wilcox % (Auto) 9.9, Eos % (Auto) 0.8, Baso % (Auto) 0.3, Absolute Neuts (auto) 19.3 H, Absolute Lymphs (auto) 2.84, Nucleated RBC % 0, Differential Comment SCANNED, Diff Path Review Reviewed, Stomatocytes RARE 01/24/20 06:20: Sodium 139, Potassium 4.0, Chloride 103, Carbon Dioxide 34.0 H, Anion Gap 2 L, BUN 16, Creatinine 1.31 H, Estim Creat Clear Calc 63.87, Est GFR (MDRD) Af Amer 72, Est GFR (MDRD) Non-Af 59 L, BUN/Creatinine Ratio 12.2, Glucose 197 H, Calcium 9.0, Troponin I < 0.015 01/24/20 06:20: Lactic Acid 1.5 01/24/20 07:30: MRSA (PCR) Pending 01/24/20 07:34: Specimen Type ART, Sample Site R RADIAL, pH 7.40, Bicarbonate Actual 33.3 H, POC Total CO2 35, Base Excess 8 H, O2 Saturation 93 L, O2 % 30, ABG pCO2 54.3 H, ABG pO2 68 L, Paco Test POS, Respiration Rate 12, O2 Delivery Device Bi Pap, EPAP 10, IPAP 20, Blood Gas Notified Whom ED MD, Blood Gas Notified Time 730 Diagnostic Data Chest X-Ray 01/24/20 06:15 IMPRESSION: Emphysema without pneumonia or atelectasis. Electronically Signed: Omid Graham MD at 7:44 EDT Tel , Service support , Current Medications Albuterol Sulfate (Ventolin Aerosols) 2.5 mg INHALATION Q2H PRN PRN PRN Reason: dyspnea, wheezing Albuterol Sulfate (Proventil Hfa) 2 puff IH Q2H PRN PRN Reason: shortness of breath or wheezing Aspirin (Aspirin, Baby) 81 mg PO DAILY@0800 [facility] Atorvastatin Calcium (Lipitor) 40 mg PO QHS [facility] Azelastine HCl (Astelin) 1 spray NASAL BID PRN PRN Reason: allergy symptoms Budesonide (Pulmicort Aerosol) 0.5 mg INHALATION BID [facility] Bupropion HCl (Wellbutrin Tablets) 100 mg PO BID [facility] Cholecalciferol (Vitamin D (25mcg)) 1,000 unit PO DAILY [facility] Clopidogrel Bisulfate (Plavix) 75 mg PO DAILY [facility] Clotrimazole (Mycelex) 10 mg MUCOUS MEM TID PRN PRN Reason: thrush Dextrose (D50w Syringe) 0 gm IV X1 PRN; Protocol PRN Reason: Hypoglycemia Enoxaparin Sodium (Lovenox) 40 mg SC DAILY [facility] Famotidine (Pepcid) 20 mg PO BID [facility] Ferrous Sulfate (Ferrous Sulfate) 325 mg PO DAILY [facility] Furosemide (Lasix) 40 mg PO BID [facility] Glucagon () 1 mg IM .X1 PRN PRN Reason: Hypoglycemia Sodium Chloride () 500 mls @ 999 mls/hr IV .Q31M ONE Last Infusion: 01/24/20 09:01 Dose: Infused Documented by: Ipratropium [place] (Atrovent) 0.5 mg INHALATION Q4H [facility] Losartan Potassium (Cozaar) 25 mg PO DAILY [facility] Metformin HCl (Glucophage) 500 mg PO BREAKFAST [facility] Multivitamins (Multivitamin) tablet PO DAILY [facility] Non-Formulary Medication (Budesonide/Formoterol 160/4.5) 2 puff INHALATION BID [place] Non-Formulary Medication (Oxygen, Home [Home Oxygen]) 4 - 6 lpm NASAL CONT [place] Non-Formulary Medication (Potassium Chloride [Klor-Con M20]) 20 meq PO BID [place] Non-Formulary Medication (Roflumilast) 500 mcg PO DAILY [facility] Non-Formulary Medication (Tiotropium [place]) 1 cap INHALATION DAILY [facility] Sodium Chloride () 10 - 40 ml IV UD PRN PRN Reason: SALINE FLUSH Assessment/Plan All Active Problems (Last Reviewed 10/01/19 @ 11:31 by Chikis Mojica) Acute and chronic respiratory failure with hypoxia (Acute) COPD exacerbation (Acute) 59 y/o admitted with a complaint of shortness of breath 1. Acute on chronic hypoxic respiratory failure due to COPD exacerbation * on BIPAP * CXR showed no acute cardiopulmonary process * admit to Med surg with telemetry- boarding in ICU for now * wean off BIPAP as tolerated * IV solumedrol 40mg q8 * IV levaquin 40mg daily * breathing treatment with duonebs * check respiratory panel * COVID screen pending. COVID precautions * consult pulmonology- patient well known to Dr Mendez * 2/; Acute COPD exacerbation: as under 1. On Roflumilast and a Jose Angel as well as Symbicort. 3. Chronci HFrEF: on lasix. BNP is pending. 4. Type 2 diabetes vitals:. Metformin on hold. Insulin sliding scale. Accu- Cheks AC at bedtime. 5. CAD s/p stents: On aspirin and Plavix as well as statin. 7. Hypertension: On metoprolol and losartan. 8. Hyperlipidemia: On statin. 9. Anxiety: On bupropion 10. MICHELLE: On trilogy at night DVT prophylaxis: Lovenox CODE STATUS: Full code Inpatient E&M: 62395 Init Hosp L3 Procedures: 49212 Advncd Care Plan 30 Min
--- NOTE | 2020-01-24 11:07 | CASEMGMT ---
RN CM attempted to call as patient is on Bipap and in precautions. No answer, voice message left with return contact information. RN CM will attempt to call later to complete assessment or see if patient is off Bipap to call patient in room. CM will continue to follow this patient and plan for a safe discharge.
--- NOTE | 2020-01-24 11:17 | CASEMGMT ---
Social Work Note SW reviewed previous notes, Palliative Care referral was made for pt in July 2019. JANINE placed a call to [facility] and spoke with Sushila in Palliative. Sushila states they received referral for Palliative on July 27 2019. Palliative met with pt and pt's and after discussion, pt didn't sign with Palliative. Sushila states that if pt is agreeable to Palliative again, a new referral would need to be made. Pt was just admitted today. Is currently on Bipap and in COVID precautions. JANINE unable to meet with pt. Gin Abbott HEALTH INFORMATION TECHNOLOGIST, ACCOUNT EXEC[employer]
[2020-01-24 11:38] LABS: BNP,B-Type NATRIURETIC PEPTIDE 31.1 pg/mL (0-100)
[2020-01-24 13:11] LABS: Bedside Glucose 178 mg/dL (70-110)
--- NOTE | 2020-01-24 13:20 | CASEMGMT ---
RN CM called patient's as patient is in isolation, on bipap, and not able to speak at this time. RN CM introduced self and role at [facility]. willing to participate in assessment and is able to answer all questions appropriately. Care providers, pharmacy, and demographics verified. wishes for patient to discharge home, denies need for home health at this time. states she has no further needs or concerns at this time. CM to follow for discharge planning needs that may arise. PCP: Tiff Specialists: Stephy, k 9 handler/ deputy; Andrea director of medical education Preferred Pharmacy: [facility] Insurance: LAUREN Baca Prescription Benefit: yes Living Will/HPOA: none LNOK: Living Arrangements: Patient lives with in mobile with ramp to enter the home. assists patient with bathing Transportation: self/ DME/HHC: Patient has walekr, rollator, oxygen 4lpm with portability through [employer]; Triology, and nebulizer at home. Disposition Plan: Patient to discharge home with family support and follow-up plans in place. Gin SORIANO, RN, CM
[2020-01-24 13:21] LABS: M R Staph aureus DNA By PCR Negative (Negative); Probe Check PASS; Specimen Processing Control PASS
--- NOTE | 2020-01-24 14:14 | CON.PCM_ITS ---
Problem List (1) Acute kidney injury Status: Acute (2) Acute and chronic respiratory failure with hypoxia Status: Acute (3) COPD exacerbation Status: Acute (4) Tobacco abuse Status: Chronic (5) Stage 4 very severe COPD by GOLD classification Status: Chronic Comment: FEV1 20% of predicted (6) CAD (coronary artery disease) Status: Chronic Qualifiers: Coronary Disease-Associated Artery/Lesion type: [place] artery [place] vs. transplanted heart: [place] heart (7) Type 2 diabetes mellitus Status: Chronic Qualifiers: Diabetes mellitus ferry terminal supervisor insulin use: without ferry terminal supervisor use Diabetes mellitus complication status: with circulatory complication Diabetes mellitus complication detail: with other circulatory complications Qualified Code(s): E11.59 - Type 2 diabetes mellitus with other circulatory complications (8) MICHELLE (obstructive sleep apnea) Status: Chronic Comment: Trilogy with 2 LPM oxygen bleed (9) Anxiety Status: Chronic (10) Hyperlipidemia Status: Chronic Qualifiers: Hyperlipidemia type: unspecified Qualified Code(s): E78.5 - Hyperlipidemia, unspecified Reason for Consult Date of Consultation: 01/24/20 Reason for Consultation: Respiratory failure History of Present Illness: The patient is a 59 year old M, with past medical history listed below and well- known to me from the outpatient office, who presented to [facility] on 01/24/2020 with progressive shortness of breath over the last 4 days. Patient reports he started with having increased shortness of breath, but over the last 2 days has had a cough productive of green, yellow and [place] sputum. No hemoptysis have been reported. Patient does not report any fevers, but does not routinely check his temperature. Patient is not reporting any chest pain, but did have a moderate headache and generalized weakness. Patient reportedly has been in his home since the coronavirus pandemic has started in [place]. 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 Patient's grandson has not been seen by a physician. In the ER, patient was noted to be 90% on his baseline 4 L nasal cannula. Patient was hypertensive and tachypneic. Patient had 1+ bilateral lower extremity edema and EKG was unremarkable. CBC shows a white count of 25,000 with 77% neutrophils and an elevated creatinine of 1.31 (baseline 1). Lactate i s 1.5 and chest x-ray was relatively unremarkable. Patient was given albuterol, Atrovent and Solu-Medrol in the ER. Patient was also placed on BiPAP therapy. Patient was then transferred to the intensive care unit. Since being in the intensive care unit, patient feels subjectively unchanged. Patient continues to report significant dyspnea at rest and headache. Patient states he has not had any dysuria, recent trauma, hemoptysis or melena. Patient feels that this is similar to his previous hospitalizations. Patient is on 10 mg of prednisone at baseline. Extensive conversation with the patient about CODE STATUS. Patient continues to report that he has made it through tighter spots in the past and wishes to be a full code. Review of systems otherwise negative from a constitutional, HEENT, respiratory, cardiovascular, GI, genitourinary, musculoskeletal, skin, neurologic, psychiatric and hematologic system unless stated above. Past Medical History Past Medical History (Chronic Problems): Chronic Problems (Last Reviewed 10/01/19 @ 11:31 by Chikis Mojica) Tobacco abuse (Chronic) Stage 4 very severe COPD by GOLD classification (Chronic) FEV1 20% of predicted CAD (coronary artery disease) (Chronic) Type 2 diabetes mellitus (Chronic) Congestive heart failure (Chronic) MICHELLE (obstructive sleep apnea) (Chronic) Trilogy with 2 LPM oxygen bleed Anxiety (Chronic) Presence of stent in coronary artery (Chronic ~07/2006) [facility] w/stenting to prox RCA Atherosclerotic heart disease of [place] coronary artery without angina pectoris (Chronic) [facility] w/stenting to prox RCA 07/15 Chronic respiratory failure with hypoxia and hypercapnia (Chronic) COPD (chronic obstructive pulmonary disease) (Chronic) Hypertension (Chronic) Hyperlipidemia (Chronic) Medical History: Medical History (Last Reviewed 10/01/19 @ 11:31 by Chikis Mojica) Tobacco abuse (Chronic) Z72.0 Stage 4 very severe COPD by GOLD classification (Chronic) J44.9 FEV1 20% of predicted CAD (coronary artery disease) (Chronic) I25.10 Type 2 diabetes mellitus (Chronic) E11.9 Congestive heart failure (Chronic) I50.9 MICHELLE (obstructive sleep apnea) (Chronic) G47.33 Trilogy with 2 LPM oxygen bleed Anxiety (Chronic) F41.9 Hypertension (Chronic) I10 Hyperlipidemia (Chronic) E78.5 Anxiety (Inactive) F41.9 Coronary artery disease (Inactive) I25.10 Status post stent Allergies diazepam [From Valium] Adverse Reaction (Verified 01/24/20 06:08) Vomiting Home Medications: Ambulatory Orders Medication Instructions Recorded Aspirin [Aspirin, Baby] 81 mg PO DAILY@0800 10/04/14 Atorvastatin Calcium [Lipitor] 40 mg PO QHS 10/04/14 Clopidogrel Bisulfate [Plavix] 75 mg PO DAILY 10/04/14 Furosemide [Lasix] 40 mg PO BID 10/04/14 Multivitamins,Therapeutic 1 tab PO DAILY 10/04/14 [Multivitamin] Budesonide/Formoterol 160/4.5 2 puff INHALATION BID 02/24/15 [Symbicort 160/4.5 Mcg Inhaler (SP)] Roflumilast [Daliresp] 500 mcg PO DAILY 02/24/15 Famotidine [Pepcid] 20 mg PO BID 08/01/15 bupropion HCl 100 mg tablet 100 mg PO BID 10/25/17 Albuterol Aerosols [Ventolin 2.5 mg INHALATION Q2H PRN PRN #1 11/08/17 Aerosols] box albuterol sulfate 90 mcg/actuation 2 puff INHALATION Q2H PRN g 11/11/17 aerosol inhaler tiotropium bromide 18 mcg capsule 1 cap INHALATION DAILY 11/11/17 with inhalation device Cholecalciferol (VIT D3) [Vitamin 1,000 unit PO DAILY tab 02/13/18 D3] ipratropium bromide 0.02 % 0.5 mg INHALATION Q4H ml 05/01/18 solution for inhalation losartan 25 mg tablet 25 mg PO DAILY 09/14/18 Budesonide Aerosol [Pulmicort 0.5 mg INHALATION BID 10/14/18 Respules] Azelastine HCl 1 spray INTRANASAL BID PRN 07/24/19 Clotrimazole 10 mg MUCOUS MEMBRANE TID PRN 07/24/19 Ferrous Sulfate 325 mg PO DAILY 07/24/19 Oxygen, Home [Home Oxygen] 4 - 6 lpm NASAL CONT 07/24/19 Potassium Chloride [Klor-Con M20] 20 meq PO BID 07/24/19 prednisone 10 mg tablet 10 mg PO QDAY #30 tab 08/27/19 metformin 500 mg tablet 250 mg PO DAILY tab 10/01/19 metformin 500 mg tablet 500 mg PO BREAKFAST tab 10/01/19 metoprolol tartrate 25 mg tablet 25 mg PO BID #180 tab 03/05/20 Surgical History: Surgical History (Last Reviewed 10/01/19 @ 11:31 by Chikis Mojica) Presence of stent in coronary artery (Chronic) Onset Date: ~07/2006 Z95.5 [facility] w/stenting to prox RCA Surgical History: - - Rotator cuff surgery Psychiatric History: No pertinent psych hx Lives: With Family Smoking Status: Former smoker Tobacco Use: Cigarettes - quit 3 years ago Alcohol: None Drugs: None - *Family History Maternal Family History: Family History (Last Reviewed 10/01/19 @ 11:31 by Chikis Mojica) Mother Diabetes Father Heart disease CVA (cerebral vascular accident) Brother Diabetes Asthma History Items: Clotting Disorder - Mother with history of PE following an ankle surgery Paternal Family History: Family History (Last Reviewed 10/01/19 @ 11:31 by Chikis Mojica) Mother Diabetes Father Heart disease CVA (cerebral vascular accident) Brother Diabetes Asthma History Items: Heart Disease Review of Systems Comment: See HPI Patient Problems: Active and Suspected Problems (Last Reviewed 10/01/19 @ 11:31 by Chikis Mojica) Acute kidney injury (Acute) Objective: Chest x-ray was personally reviewed and shows no acute infiltrate. Last pulmonary function test showed an FEV1 of 20% of predicted. Patient is on trilogy with a 2 L oxygen bleed at home at baseline. Patient does have a history of stent to the RCA. Last echocardiogram in July 2019 showed an EF of 65% with no significant valvular abnormalities. - Physical Exam Vitals/I&O's: Vital Signs Temp Pulse Resp BP Pulse Ox 36.7 C 100 25 H 120/68 98 01/24/20 12:00 01/24/20 14:07 01/24/20 14:07 01/24/20 12:00 01/24/20 14:07 Oxygen Flow Rate (L/min) 5 Oxygen Delivery Method Bi-pap Weight: 103.056 kg Body Mass Index (BMI) 31.6 Intake and Output for Last 24 Hours 01/22/20 01/23/20 01/24/20 23:59 23:59 23:59 Intake Total 650.00 / 650.00 Output Total 0 / 0 Balance 650.00 / 650.00 General: Alert, Oriented x3, Cooperative, - - Moderate respiratory distress. Good BiPAP synchrony. Appears older than stated age. HEENT: Atraumatic, PERRLA, EOMI, Normocephalic, - - No scleral icterus or injection noted Oral: Moist Mucosa, No Gingival or Mucosal Lesions/ Ulcerations, - - Poor dentition Neck: Supple, No JVD, No Nodes, Trachea Midline Lungs: No rhonchi, No rales, Diminished, Wheezes, - - Symmetric expansion Cardiovascular: Normal S1, Normal S2, No murmurs, No rub noted, No Gallop, Tachycardic Abdomen: Bowel Sounds Present, Soft, Non Tender, Non-Distended, Obese Extremities: No clubbing, No cyanosis, Edema - 1-2+ lower extremity edema Skin: - - Multiple superficial abrasions and ulcerations Musculoskeletal: No Tenderness to Palpation of Joints or Extremities Lymphatic: No Cervical, Supraclavicular, or Inguinal Adenopathy Neurological: Cranial nerves II-XII grossly intact, Neuro grossly intact, Motor Exam 5/5 strength throughout Psych/Mental Status: Alert and oriented to time, place, person, mood and affect Microbiology Past 72 Hours 01/24/20 07:30 Mucosa - Nasopharyngeal Respiratory Panel (PCR) - Final Laboratory Results 01/24/20 06:20: WBC 25.1 H, RBC 5.10, Hgb 12.3 L, Hct 42.6, MCV 83.5, MCH 24.1 L , MCHC 28.9 L, RDW Std Deviation 48.9 H, RDW Coeff of Asael 16.1 H, Plt Count 401, MPV 8.9, Immature Gran % (Auto) 0.800, Neut % (Auto) 76.9 H, Lymph % (Auto) 11.3 L, [place] % (Auto) 9.9, Eos % (Auto) 0.8, Baso % (Auto) 0.3, Absolute Neuts (auto) 19.3 H, Absolute Lymphs (auto) 2.84, Nucleated RBC % 0, Differential Comment SCANNED, Diff Path Review Reviewed, Stomatocytes RARE 01/24/20 06:20: Sodium 139, Potassium 4.0, Chloride 103, Carbon Dioxide 34.0 H, Anion Gap 2 L, BUN 16, Creatinine 1.31 H, Estim Creat Clear Calc 63.87, Est GFR (MDRD) Af Amer 72, Est GFR (MDRD) Non-Af 59 L, BUN/Creatinine Ratio 12.2, Glucose 197 H, Calcium 9.0, Troponin I < 0.015 01/24/20 06:20: Lactic Acid 1.5 01/24/20 06:20: B-Natriuretic Peptide 31.1 01/24/20 07:30: MRSA (PCR) Negative 01/24/20 07:34: Specimen Type ART, Sample Site R RADIAL, pH 7.40, Bicarbonate Actual 33.3 H, POC Total CO2 35, Base Excess 8 H, O2 Saturation 93 L, O2 % 30, ABG pCO2 54.3 H, ABG pO2 68 L, Paco Test POS, Respiration Rate 12, O2 Delivery Device Bi Pap, EPAP 10, IPAP 20, Blood Gas Notified Whom ED MD, Blood Gas Notified Time 730 01/24/20 10:55: COVID-19 (JAMAR) Pending 01/24/20 12:56: POC Glucose 178 H Current Medications Albuterol/Ipratropium (Duoneb) 3 ml INHALATION Q4H [facility] Aspirin (Aspirin, Baby) 81 mg PO DAILY@0800 [facility] Atorvastatin Calcium (Lipitor) 40 mg PO QHS [facility] Azelastine HCl (Astelin) 1 spray NASAL BID PRN PRN Reason: allergy symptoms Bupropion HCl (Wellbutrin Tablets) 100 mg PO BID [facility] Cholecalciferol (Vitamin D (25mcg)) 1,000 unit PO DAILY [facility] Clopidogrel Bisulfate (Plavix) 75 mg PO DAILY [facility] Clotrimazole (Mycelex) 10 mg MUCOUS MEM TID PRN PRN Reason: thrush Enoxaparin Sodium (Lovenox) 40 mg SC DAILY [facility] Famotidine (Pepcid) 20 mg PO BID [facility] Ferrous Sulfate (Ferrous Sulfate) 325 mg PO DAILY [facility] Furosemide (Lasix) 40 mg PO BIDLX [facility] Glucagon () 1 mg IM .X1 PRN PRN Reason: Hypoglycemia Sodium Chloride () 500 mls @ 999 mls/hr IV .Q31M ONE Last Infusion: 01/24/20 09:01 Dose: Infused Documented by: Dextrose (Dextrose 10%-Water) 250 mls @ 999 mls/hr IV .Q16M PRN; Protocol PRN Reason: HYPOGLYCEMIA Levofloxacin (Levaquin Iv) 750 mg in 150 mls @ 100 mls/hr IV Q24 [facility] Losartan Potassium (Cozaar) 25 mg PO DAILY [facility] Metformin HCl (Glucophage) 500 mg PO DAILY@1000 [facility] Methylprednisolone (Solu-Medrol) 40 mg IV Q8 [facility] Last Admin: 01/24/20 12:59 Dose: 40 mg Documented by: Multivitamins (Multivitamin) 1 tablet PO DAILY [facility] Potassium Chloride (K-Dur) 20 meq PO BID [facility] Sodium Chloride () 10 - 40 ml IV UD PRN PRN Reason: SALINE FLUSH Clinical Impression(s) from Imaging Studies Chest X-Ray 01/24/20 06:15 IMPRESSION: Emphysema without pneumonia or atelectasis. Electronically Signed: Omid Graham MD at 7:44 EDT Tel , Service support , Assessment/Plan All Active Problems (Last Reviewed 10/01/19 @ 11:31 by Chikis Mojica) Acute kidney injury (Acute) Acute and chronic respiratory failure with hypoxia (Acute) COPD exacerbation (Acute) RECOMMENDATIONS: 1. Await COVID testing 2. Empiric antibiotics pending culture results 3. Continue IV steroids, schedule bronchodilators and mucolytic 4. Increase activity as tolerated 5. BiPAP breaks as tolerated. Could transition to AVAPS with a targeted tidal volume of 500 (home setting) 6. Wean oxygen as tolerated IMPRESSIONS: 1. Acute on chronic hypoxic and hypercarbic respiratory failure Patient with advanced lung disease at baseline. Patient was last known FEV1 of 20% of predicted. Patient appears to be responding well to BiPAP therapy. ABG shows compensated CO2 retention with adequate oxygenation. Patient has had multiple viral infections leading to similar type presentations in the past. COVID-19 has been sent, but viral panel is negative. Continue with BiPAP rescue as necessary. 2. COPD exacerbation Patient had PFTs in May which showed severe partially reversible ventilatory defect. See #1. Unclear if patient has been compliant with home trilogy ventilator. Patient did not make an attempt to contact our office prior to presenting for this exacerbation. Would schedule patient's bronchodilator given his reversibility on PFT. Given advanced lung disease, it is possible the patient was just unable to tolerate the increased metabolic demand of fever. Multiple cultures are currently pending. 3. CAD s/pPTCA/anxiety/hyperlipidemia/hypertension Complicates care, management, recovery, and prognosis. Management per hospitalist. Inpatient E&M: 71231 Init Hosp L3
[2020-01-24] MEDS: Furosemide 40 MG Tablet PO (17:20)
[2020-01-24 17:25] LABS: Bedside Glucose 183 mg/dL (70-110)
[2020-01-24] MEDS: metFORMIN HCl 500 MG Tablet 250 MG PO (21:02)
[2020-01-24] MEDS: Atorvastatin Calcium 40 MG Tablet PO (21:02)
[2020-01-24] MEDS: 0.9% Saline Lock 10 ML Syringe IV (21:02)
[2020-01-24] MEDS: buPROPion 100 MG Tablet PO (21:02)
[2020-01-24] MEDS: Famotidine 20 MG Tablet PO (21:03)
[2020-01-24 21:40] LABS: Bedside Glucose 173 mg/dL (70-110)
[2020-01-25] VITALS (17 sets, daily range): BP systolic 116–145; BP diastolic 66–70; PULSE 80–105; RESP 12–24; TEMP 35.6–36.6; O2SAT 96–100
[2020-01-25] MEDS: Ipratropium/Albuterol Sulfate 3 ML AMPUL.NEB INHALATION ×6 (03:05→23:02)
[2020-01-25] MEDS: 0.9% Saline Lock 10 ML Syringe IV ×2 (05:03→10:26)
[2020-01-25 05:42] LABS: Absolute Lymphocyte Count 0.91 X10^3/uL (0.83-4.51); Absolute Neutrophil Count 16.4 X10^3/uL (2.0-7.7); Basophil# 0.02 X10^3/uL; Basophil% 0.1 % (0-1); Hematocrit 37.8 % (40-54); Hemoglobin 11.2 g/dL (13.0-16.5); Lymphocyte # 0.91 X10^3/ul (4.0); Lymphocyte % 4.9 % (19-41); Mean Corp Hgb Conc 29.6 g/dL (32-36); Mean Corpuscular Hgb 24.7 pg (27.0-32.0); Mean Corpuscular Volume 83.3 fL (80-94); Monocyte# 1.21 X10^3/uL; Monocyte% 6.5 % (0-10); NRBC Flagged by Analyzer 0 % (0-5); Neutrophil # 16.36 X10^3/uL (2.7-7.7); Neutrophil % 87.4 % (47-70); Platelet Count 345 K/mm3 (150-450); RBC Distribution Width CV 15.8 % (11.6-14.6); RBC Distribution Width SD 47.7 fl (35.1-43.9); Red Blood Count 4.54 M/mm3 (4.6-6.2); White Blood Count 18.7 K/mm3 (4.4-11.0)
[2020-01-25 06:01] LABS: Anion Gap 6 (5-15); BUN 23 mg/dL (7-18); BUN/Creat Ratio 20.4 RATIO (10-20); Chloride 99 mmol/L (98-107); Creatinine, Serum 1.13 mg/dL (0.70-1.30); EST Glomerular Filtration Rate 70 mL/min (>60); Est Glom Filt Rate - Afr Amer 85 mL/min (>60); Estimated Creatinine Clearance 74.04 ml/min; Glucose 162 mg/dL (74-106); Potassium 4.3 mmol/L (3.5-5.1); Sodium Level 138 mmol/L (136-145)
--- NOTE | 2020-01-25 07:51 | PN_ITS ---
Patient Problems: Active and Suspected Problems (Last Reviewed 10/01/19 @ 11:31 by Chikis Mojica) Acute kidney injury (Acute) Subjective: Patient did okay overnight. Patient did use BiPAP for much of the evening, but is also been on nasal cannula. Patient reports subjective improvement in overall condition, but continues to have a productive cough. Patient denies any current chest pain, abdominal pain, nausea or vomiting. - Physical Exam Vitals/I&O's: Vital Signs Temp Pulse Resp BP Pulse Ox 36.6 C 85 18 117/67 99 01/25/20 05:05 01/25/20 05:05 01/25/20 05:05 01/25/20 05:05 01/25/20 05:05 Oxygen Flow Rate (L/min) 5 Oxygen Delivery Method Bi-pap Weight: 101.8 kg Body Mass Index (BMI) 31.6 Intake and Output for Last 24 Hours 01/23/20 01/24/20 01/25/20 23:59 23:59 23:59 Intake Total 650.00 / 1130.00 600 / 600 Output Total 300 / 400 100 / 100 Balance 350.00 / 730.00 500 / 500 General: Alert, Oriented x3, Cooperative, - - Mild conversational dyspnea. Obese. Appears older than stated age. HEENT: Atraumatic, PERRLA, EOMI, Normocephalic, - - No scleral icterus or injection noted Oral: Moist Mucosa, No Gingival or Mucosal Lesions/ Ulcerations Neck: Supple, No JVD, No Nodes, Trachea Midline Lungs: No rhonchi, No rales, Diminished, Wheezes Cardiovascular: Regular rate, Regular Rhythm, Normal S1, Normal S2, No murmurs, No rub noted, No Gallop Abdomen: Bowel Sounds Present, Soft, Non Tender, Non-Distended, Obese Extremities: No cyanosis, No edema, Clubbing Skin: No rashes, No breakdown Musculoskeletal: No Tenderness to Palpation of Joints or Extremities Lymphatic: No Cervical, Supraclavicular, or Inguinal Adenopathy Neurological: Cranial nerves II-XII grossly intact, Neuro grossly intact, Motor Exam 5/5 strength throughout Psych/Mental Status: Alert and oriented to time, place, person, mood and affect Microbiology Past 72 Hours 01/24/20 07:30 Mucosa - Nasopharyngeal Respiratory Panel (PCR) - Final Laboratory Results 01/24/20 06:20: Diff Path Review Reviewed 01/24/20 06:20: B-Natriuretic Peptide 31.1 01/24/20 07:30: MRSA (PCR) Negative 01/24/20 07:34: Specimen Type ART, Sample Site R RADIAL, O2 % 30, Paco Test POS, Respiration Rate 12, O2 Delivery Device Bi Pap, EPAP 10, IPAP 20, Blood Gas Notified Whom ED MD, Blood Gas Notified Time 730 01/24/20 10:55: COVID-19 (JAMAR) Pending 01/24/20 12:56: POC Glucose 178 H 01/24/20 17:17: POC Glucose 183 H 01/24/20 20:51: POC Glucose 173 H 01/25/20 05:10: WBC 18.7 H, RBC 4.54 L, Hgb 11.2 L, Hct 37.8 L, MCV 83.3, MCH 24.7 L, MCHC 29.6 L, RDW Std Deviation 47.7 H, RDW Coeff of Asael 15.8 H, Plt Count 345, MPV 9.0, Immature Gran % (Auto) 1.100 H, Neut % (Auto) 87.4 H, Lymph % (Auto) 4.9 L, [place] % (Auto) 6.5, Eos % (Auto) 0.0, Baso % (Auto) 0.1, Absolute Neuts (auto) 16.4 H, Absolute Lymphs (auto) 0.91, Nucleated RBC % 0 01/25/20 05:10: Sodium 138, Potassium 4.3, Chloride 99, Carbon Dioxide 33.0 H, Anion Gap 6, BUN 23 H, Creatinine 1.13, Estim Creat Clear Calc 74.04, Est GFR (MDRD) Af Amer 85, Est GFR (MDRD) Non-Af 70, BUN/Creatinine Ratio 20.4 H, Glucose 162 H, Calcium 9.0 Current Medications Albuterol/Ipratropium (Duoneb) 3 ml INHALATION Q4H.RT [facility] Last Admin: 01/25/20 07:34 Dose: 3 ml Documented by: Aspirin (Aspirin, Baby) 81 mg PO DAILY [facility] Atorvastatin Calcium (Lipitor) 40 mg PO QHS [facility] Last Admin: 01/24/20 21:02 Dose: 40 mg Documented by: Bupropion HCl (Wellbutrin Tablets) 100 mg PO BID [facility] Last Admin: 01/24/20 21:02 Dose: 100 mg Documented by: Clopidogrel Bisulfate (Plavix) 75 mg PO DAILY [facility] Clotrimazole (Mycelex) 10 mg MUCOUS MEM TID PRN PRN Reason: thrush Enoxaparin Sodium (Lovenox) 40 mg SC DAILY [facility] Famotidine (Pepcid) 20 mg PO BID [facility] Last Admin: 01/24/20 21:03 Dose: 20 mg Documented by: Furosemide (Lasix) 40 mg PO BIDLX [facility] Last Admin: 01/24/20 17:20 Dose: 40 mg Documented by: Glucagon () 1 mg IM .X1 PRN PRN Reason: Hypoglycemia Sodium Chloride () 500 mls @ 999 mls/hr IV .Q31M ONE Last Infusion: 01/24/20 09:01 Dose: Infused Documented by: Dextrose (Dextrose 10%-Water) 250 mls @ 999 mls/hr IV .Q16M PRN; Protocol PRN Reason: HYPOGLYCEMIA Levofloxacin (Levaquin Iv) 750 mg in 150 mls @ 100 mls/hr IV Q24 [facility] Losartan Potassium (Cozaar) 25 mg PO DAILY [facility] Metformin HCl (Glucophage) 500 mg PO DAILY@1000 [facility] Metformin HCl (Glucophage) 250 mg PO QHS [facility] Last Admin: 01/24/20 21:02 Dose: 250 mg Documented by: Methylprednisolone (Solu-Medrol) 40 mg IV Q8H [facility] Potassium Chloride (K-Dur) 20 meq PO BID [facility] Last Admin: 01/24/20 21:03 Dose: 20 meq Documented by: Sodium Chloride () 10 - 40 ml IV UD PRN PRN Reason: SALINE FLUSH Last Admin: 01/25/20 05:03 Dose: 10 ml Documented by: Medical Necessity - Tobacco Use Smoking Status: Former smoker Tobacco Use: Cigarettes - quit 3 years ago Assessment/Plan All Active Problems (Last Reviewed 10/01/19 @ 11:31 by Chikis Mojica) Acute kidney injury (Acute) Acute and chronic respiratory failure with hypoxia (Acute) COPD exacerbation (Acute) RECOMMENDATIONS: 1. Await COVID testing 2. Empiric antibiotics pending culture results 3. Continue IV steroids, schedule bronchodilators and mucolytic at current dosing 4. Increase activity as tolerated 5. BiPAP breaks as tolerated. Could transition to AVAPS with a targeted tidal volume of 500 (home setting) 6. Wean oxygen as tolerated IMPRESSIONS: 1. Acute on chronic hypoxic and hypercarbic respiratory failure Patient with advanced lung disease at baseline. Patient was last known FEV1 of 20% of predicted. Patient appears to be responding well to BiPAP therapy. Will attempt BiPAP breaks as tolerated today. Patient has had multiple viral infections leading to similar type presentations in the past. COVID-19 has been sent, but viral panel is negative. Anticipate decrease in steroids in the next 24 to 48 hours if continues to improve. Patient has had significant improvement in leukocytosis. 2. COPD exacerbation Patient had PFTs in May which showed severe partially reversible ventilatory defect. See #1. Unclear if patient has been compliant with home trilogy ventilator. Patient did not make an attempt to contact our office prior to presenting for this exacerbation. Would schedule patient's bronchodilator given his reversibility on PFT. Multiple cultures are currently pending. 3. CAD s/pPTCA/anxiety/hyperlipidemia/hypertension/acute kidney injury Complicates care, management, recovery, and prognosis. Management per hospitalist. Patient appears to have had acute kidney injury secondary to prerenal etiology. This has improved with hydration. Inpatient E&M: [id number] [facility] Hosp L3
[2020-01-25 08:51] LABS: Bedside Glucose 172 mg/dL (70-110)
--- NOTE | 2020-01-25 08:51 | PN_ITS ---
Patient Problems: Active and Suspected Problems (Last Reviewed 10/01/19 @ 11:31 by Chikis Mojica) Acute kidney injury (Acute) Subjective: Patient seen and examined. He feels a bit better today but still feels below his baseline. He required BiPAP overnight and was on 5 L of oxygen at time of review. He still coughing and still bringing up greenish sputum which he states is chronic. He denies any fever or chills. Review of systems otherwise negative. White cell count is down to 18.7 today. He is on 5 L of oxygen and he has remained slightly tachycardic. Tachypnea is better though. Vitals/I&O's: Vital Signs Temp Pulse Resp BP Pulse Ox 97.9 F 85 18 117/67 99 01/25/20 05:05 01/25/20 05:05 01/25/20 05:05 01/25/20 05:05 01/25/20 05:05 Oxygen Flow Rate (L/min) 5 Oxygen Delivery Method Bi-pap Weight: 224 lb 6.889 oz Body Mass Index (BMI) 31.6 Intake and Output for Last 24 Hours 01/23/20 01/24/20 01/25/20 23:59 23:59 23:59 Intake Total 650.00 / 1130.00 600 / 600 Output Total 300 / 400 100 / 100 Balance 350.00 / 730.00 500 / 500 General: Alert, Oriented x3, Cooperative, No apparent distress HEENT: Atraumatic, PERRLA, EOMI, Normocephalic Oral: Moist Mucosa Neck: Supple, No JVD, Negative Carotid Bruits Lungs: - - diminished breath sounds bibasally, no wheezing or crackles. on 5L of oxygen by nasal canula Cardiovascular: Regular rate, Regular Rhythm, Normal S1, Normal S2, No murmurs Abdomen: Bowel Sounds Present, Soft, Non Tender, Non-Distended, No Hepato- splenomegaly Extremities: No clubbing, No cyanosis, No edema, Capillary Refill Less than 3 Seconds Skin: No rashes, No breakdown Musculoskeletal: No Tenderness to Palpation of Joints or Extremities Lymphatic: No Cervical, Supraclavicular, or Inguinal Adenopathy Neurological: Cranial nerves II-XII grossly intact, Neuro grossly intact, Motor Exam 5/5 strength throughout Psych/Mental Status: Normal Affect, Appropriate, Alert and oriented to time, place, person, mood and affect Microbiology Past 72 Hours 01/24/20 07:30 Mucosa - Nasopharyngeal Respiratory Panel (PCR) - Final Laboratory Results 01/24/20 06:20: Diff Path Review Reviewed 01/24/20 06:20: B-Natriuretic Peptide 31.1 01/24/20 07:30: MRSA (PCR) Negative 01/24/20 10:55: COVID-19 (JAMAR) Pending 01/24/20 12:56: POC Glucose 178 H 01/24/20 17:17: POC Glucose 183 H 01/24/20 20:51: POC Glucose 173 H 01/25/20 05:10: WBC 18.7 H, RBC 4.54 L, Hgb 11.2 L, Hct 37.8 L, MCV 83.3, MCH 24.7 L, MCHC 29.6 L, RDW Std Deviation 47.7 H, RDW Coeff of Asael 15.8 H, Plt Count 345, MPV 9.0, Immature Gran % (Auto) 1.100 H, Neut % (Auto) 87.4 H, Lymph % (Auto) 4.9 L, [place] % (Auto) 6.5, Eos % (Auto) 0.0, Baso % (Auto) 0.1, Absolute Neuts (auto) 16.4 H, Absolute Lymphs (auto) 0.91, Nucleated RBC % 0 01/25/20 05:10: Sodium 138, Potassium 4.3, Chloride 99, Carbon Dioxide 33.0 H, Anion Gap 6, BUN 23 H, Creatinine 1.13, Estim Creat Clear Calc 74.04, Est GFR (MDRD) Af Amer 85, Est GFR (MDRD) Non-Af 70, BUN/Creatinine Ratio 20.4 H, Glucose 162 H, Calcium 9.0 01/25/20 08:43: POC Glucose Pending Diagnostic Data Chest X-Ray 01/24/20 06:15 IMPRESSION: Emphysema without pneumonia or atelectasis. Electronically Signed: Omid Graham MD at 7:44 EDT Tel , Service support , Current Medications Albuterol/Ipratropium (Duoneb) 3 ml INHALATION Q4H.RT [facility] Last Admin: 01/25/20 07:34 Dose: 3 ml Documented by: Aspirin (Aspirin, Baby) 81 mg PO DAILY [facility] Atorvastatin Calcium (Lipitor) 40 mg PO QHS [facility] Last Admin: 01/24/20 21:02 Dose: 40 mg Documented by: Bupropion HCl (Wellbutrin Tablets) 100 mg PO BID [facility] Last Admin: 01/24/20 21:02 Dose: 100 mg Documented by: Clopidogrel Bisulfate (Plavix) 75 mg PO DAILY [facility] Clotrimazole (Mycelex) 10 mg MUCOUS MEM TID PRN PRN Reason: thrush Enoxaparin Sodium (Lovenox) 40 mg SC DAILY [facility] Famotidine (Pepcid) 20 mg PO BID [facility] Last Admin: 01/24/20 21:03 Dose: 20 mg Documented by: Furosemide (Lasix) 40 mg PO BIDLX [facility] Last Admin: 01/24/20 17:20 Dose: 40 mg Documented by: Glucagon () 1 mg IM .X1 PRN PRN Reason: Hypoglycemia Sodium Chloride () 500 mls @ 999 mls/hr IV .Q31M ONE Last Infusion: 01/24/20 09:01 Dose: Infused Documented by: Dextrose (Dextrose 10%-Water) 250 mls @ 999 mls/hr IV .Q16M PRN; Protocol PRN Reason: HYPOGLYCEMIA Levofloxacin (Levaquin Iv) 750 mg in 150 mls @ 100 mls/hr IV Q24 [facility] Losartan Potassium (Cozaar) 25 mg PO DAILY [facility] Metformin HCl (Glucophage) 500 mg PO DAILY@1000 [facility] Metformin HCl (Glucophage) 250 mg PO QHS [facility] Last Admin: 01/24/20 21:02 Dose: 250 mg Documented by: Methylprednisolone (Solu-Medrol) 40 mg IV Q8H [facility] Nutritional Formula (Lactose Free) (Glucerna Shake) 120 ml PO 4X/DAY [facility] Potassium Chloride (K-Dur) 20 meq PO BID [facility] Last Admin: 01/24/20 21:03 Dose: 20 meq Documented by: Sodium Chloride () 10 - 40 ml IV UD PRN PRN Reason: SALINE FLUSH Last Admin: 01/25/20 05:03 Dose: 10 ml Documented by: STROKE Vital Signs/Narrative: Vital Signs Temp Pulse Resp BP Pulse Ox 01/25/20 05:05 97.9 F 85 18 117/67 99 Medical Necessity - Tobacco Use Smoking Status: Former smoker Tobacco Use: Cigarettes - quit 3 years ago Assessment/Plan All Active Problems (Last Reviewed 10/01/19 @ 11:31 by Chikis Mojica) Acute kidney injury (Acute) Acute and chronic respiratory failure with hypoxia (Acute) COPD exacerbation (Acute) 59 y/o admitted with a complaint of shortness of breath 1. Acute on chronic hypoxic respiratory failure due to COPD exacerbation * was on BIPAP overnight, but now on 5L of oxygen * on IV solumedrol 40mg q8 * on IV levaquin 750mg daily * breathing treatments with duonebs * respiratory panel negative * pulmonology on board * blood cultures pending * COVID screen pending * 2; Acute COPD exacerbation: as under 1. On Roflumilast and Azelastin as well as Symbicort. 3. Chronci HFrEF: on lasix. BNP was only 31 4. Type 2 diabetes mellitus: Metformin on hold. Insulin sliding scale. Accu- Cheks AC at bedtime. 5. CAD s/p stents: On aspirin and Plavix as well as statin. 7. Hypertension: On metoprolol and losartan. 8. Hyperlipidemia: On statin. 9. Anxiety: On bupropion 10. MICHELLE: stable. DVT prophylaxis: Lovenox CODE STATUS: Full code Inpatient E&M: 10102 Subs Hosp L3
[2020-01-25] MEDS: Enoxaparin 40 MG/0.4 ML Syringe SC (10:25)
[2020-01-25] MEDS: levoFLOXacin IV 750 MG/150 ML BAG 100 MG IV (10:26)
[2020-01-25] MEDS: Famotidine 20 MG Tablet PO ×2 (10:26→21:01)
[2020-01-25] MEDS: Clopidogrel Bisulfate 75 MG Tablet PO (10:26)
[2020-01-25] MEDS: Glucerna Shake 120 ML LIQUID PO ×3 (10:26→21:02)
[2020-01-25] MEDS: Losartan Potassium 25 MG Tablet PO (10:27)
[2020-01-25] MEDS: Aspirin 81 MG TAB.CHEW PO (10:27)
[2020-01-25] MEDS: metFORMIN HCl 500 MG Tablet PO (10:27)
[2020-01-25] MEDS: Furosemide 40 MG Tablet PO ×2 (10:27→16:54)
[2020-01-25] MEDS: buPROPion 100 MG Tablet PO ×2 (10:33→21:01)
--- NOTE | 2020-01-25 12:05 | CASEMGMT ---
ERIK CM Note: Pt remains on 5L NC. COVID-19 test results pending. Pt is not ready for discharge. Pt was not on oxygen prior to admission, will need to follow for possible Home O2 if not able to wean. Shyam OROURKEN RN ACM
[2020-01-25 13:00] LABS: Bedside Glucose 214 mg/dL (70-110)
--- NOTE | 2020-01-25 13:03 | CASEMGMT ---
Social Work SW spoke with pt on phone. Pt confirmed he did meet with Palliative medicine in the fall and did not feel like he needed their services at that time. SW inquired if pt would now be interested and pt declined stating he continues to feel services would not be warranted at this time. LISSETH Gross
[2020-01-25 17:01] LABS: Bedside Glucose 163 mg/dL (70-110)
[2020-01-25] MEDS: metFORMIN HCl 500 MG Tablet 250 MG PO (21:00)
[2020-01-25] MEDS: Atorvastatin Calcium 40 MG Tablet PO (21:01)
[2020-01-25 22:06] LABS: Bedside Glucose 169 mg/dL (70-110)
[2020-01-26] VITALS (21 sets, daily range): BP systolic 100–135; BP diastolic 44–80; PULSE 78–109; RESP 12–22; TEMP 36.2–36.8; O2SAT 97–98
[2020-01-26] MEDS: 0.9% Saline Lock 10 ML Syringe IV ×3 (02:43→22:40)
[2020-01-26] MEDS: Ipratropium/Albuterol Sulfate 3 ML AMPUL.NEB INHALATION ×6 (03:05→23:20)
[2020-01-26 07:32] LABS: Absolute Lymphocyte Count 0.77 X10^3/uL (0.83-4.51); Basophil# 0.02 X10^3/uL; Basophil% 0.1 % (0-1); Hematocrit 38.2 % (40-54); Hemoglobin 11.2 g/dL (13.0-16.5); Lymphocyte # 0.77 X10^3/ul (4.0); Lymphocyte % 3.9 % (19-41); Mean Corp Hgb Conc 29.3 g/dL (32-36); Mean Corpuscular Hgb 24.2 pg (27.0-32.0); Mean Corpuscular Volume 82.5 fL (80-94); Mean Platelet Vol. 9.1 fl (6.2-12.0); Monocyte# 0.65 X10^3/uL; Monocyte% 3.3 % (0-10); NRBC Flagged by Analyzer 0 % (0-5); Neutrophil # 17.96 X10^3/uL (2.7-7.7); Neutrophil % 91.7 % (47-70); Platelet Count 396 K/mm3 (150-450); RBC Distribution Width CV 15.9 % (11.6-14.6); RBC Distribution Width SD 47.7 fl (35.1-43.9); Red Blood Count 4.63 M/mm3 (4.6-6.2); White Blood Count 19.6 K/mm3 (4.4-11.0)
[2020-01-26 07:41] LABS: Anion Gap 7 (5-15); BUN 25 mg/dL (7-18); BUN/Creat Ratio 20.5 RATIO (10-20); Calcium,Total 9.1 mg/dL (8.5-10.1); Chloride 101 mmol/L (98-107); Creatinine, Serum 1.22 mg/dL (0.70-1.30); EST Glomerular Filtration Rate 64 mL/min (>60); Est Glom Filt Rate - Afr Amer 78 mL/min (>60); Estimated Creatinine Clearance 68.58 ml/min; Glucose 163 mg/dL (74-106); Potassium 4.2 mmol/L (3.5-5.1); Sodium Level 138 mmol/L (136-145)
--- NOTE | 2020-01-26 08:00 | PCM.PN.PUL ---
Patient Problems: Active and Suspected Problems (Last Reviewed 10/01/19 @ 11:31 by Chikis Mojica) Acute kidney injury (Acute) Subjective: Patient did well overnight. Patient continues to require BiPAP rescue intermittently, but takes breaks on 5 L nasal cannula. Baseline is 4 L nasal cannula. No hemodynamic instability is been reported. Patient continues to have a cough, but states it is lightening up. - Physical Exam Vitals/I&O's: Vital Signs Temp Pulse Resp BP Pulse Ox 36.2 C L 104 H 22 H 107/44 L 97 01/26/20 02:44 01/26/20 06:47 01/26/20 06:47 01/26/20 02:44 01/26/20 06:51 Oxygen Flow Rate (L/min) 5 Oxygen Delivery Method Nasal Cannula Weight: 101.8 kg Body Mass Index (BMI) 31.6 Intake and Output for Last 24 Hours 01/24/20 01/25/20 01/26/20 23:59 23:59 23:59 Intake Total 650.00 / 1130.00 990 / 990 222 / 222 Output Total 300 / 400 1000 / 1000 100 / 100 Balance 350.00 / 730.00 -10 / -10 122 / 122 General: Alert, Oriented x3, Cooperative, - - Mild respiratory distress. Obese. Appears older than stated age. HEENT: Atraumatic, PERRLA, EOMI, Normocephalic, - - No scleral icterus or injection noted Oral: Moist Mucosa, No Gingival or Mucosal Lesions/ Ulcerations, - - Poor dentition Neck: Supple, No JVD, No Nodes, Trachea Midline Lungs: No rhonchi, No rales, Diminished, Wheezes - Improved after aerosol, - - Symmetric expansion Cardiovascular: Regular rate, Regular Rhythm, Normal S1, Normal S2, No murmurs, No rub noted, No Gallop Abdomen: Bowel Sounds Present, Soft, Non Tender, Non-Distended, Obese Extremities: No cyanosis, No edema, Capillary Refill Less than 3 Seconds, Clubbing Skin: No rashes, No breakdown Musculoskeletal: No Tenderness to Palpation of Joints or Extremities Lymphatic: No Cervical, Supraclavicular, or Inguinal Adenopathy Neurological: Cranial nerves II-XII grossly intact, Neuro grossly intact, Motor Exam 5/5 strength throughout Psych/Mental Status: Alert and oriented to time, place, person, mood and affect Microbiology Past 72 Hours 01/25/20 12:55 Sputum, Expectorated/Coughed Gram Stain - Final 01/24/20 07:30 Mucosa - Nasopharyngeal Respiratory Panel (PCR) - Final Laboratory Results 01/24/20 10:55: COVID-19 (JAMAR) Pending 01/25/20 08:43: POC Glucose 172 H 01/25/20 12:51: POC Glucose 214 H 01/25/20 16:48: POC Glucose 163 H 01/25/20 21:18: POC Glucose 169 H 01/26/20 07:00: WBC 19.6 H, RBC 4.63, Hgb 11.2 L, Hct 38.2 L, MCV 82.5, MCH 24.2 L, MCHC 29.3 L, RDW Std Deviation 47.7 H, RDW Coeff of Asael 15.9 H, Plt Count 396, MPV 9.1, Immature Gran % (Auto) 1.000 H, Neut % (Auto) 91.7 H, Lymph % (Auto) 3.9 L, [place] % (Auto) 3.3, Eos % (Auto) 0.0, Baso % (Auto) 0.1, Absolute Neuts (auto) 18.0 H, Absolute Lymphs (auto) 0.77 L, Nucleated RBC % 0 01/26/20 07:00: Sodium 138, Potassium 4.2, Chloride 101, Carbon Dioxide 30.0, Anion Gap 7, BUN 25 H, Creatinine 1.22, Estim Creat Clear Calc 68.58, Est GFR (MDRD) Af Amer 78, Est GFR (MDRD) Non-Af 64, BUN/Creatinine Ratio 20.5 H, Glucose 163 H, Calcium 9.1 Current Medications Albuterol/Ipratropium (Duoneb) 3 ml INHALATION Q4H.RT [facility] Last Admin: 01/26/20 06:46 Dose: 3 ml Documented by: Aspirin (Aspirin, Baby) 81 mg PO DAILY [facility] Last Admin: 01/25/20 10:27 Dose: 81 mg Documented by: Atorvastatin Calcium (Lipitor) 40 mg PO QHS [facility] Last Admin: 01/25/20 21:01 Dose: 40 mg Documented by: Bupropion HCl (Wellbutrin Tablets) 100 mg PO BID [facility] Last Admin: 01/25/20 21:01 Dose: 100 mg Documented by: Clopidogrel Bisulfate (Plavix) 75 mg PO DAILY [facility] Last Admin: 01/25/20 10:26 Dose: 75 mg Documented by: Clotrimazole (Mycelex) 10 mg MUCOUS MEM TID PRN PRN Reason: thrush Enoxaparin Sodium (Lovenox) 40 mg SC DAILY [facility] Last Admin: 01/25/20 10:25 Dose: 40 mg Documented by: Famotidine (Pepcid) 20 mg PO BID [facility] Last Admin: 01/25/20 21:01 Dose: 20 mg Documented by: Furosemide (Lasix) 40 mg PO BIDLX [facility] Last Admin: 01/25/20 16:54 Dose: 40 mg Documented by: Glucagon () 1 mg IM .X1 PRN PRN Reason: Hypoglycemia Sodium Chloride () 500 mls @ 999 mls/hr IV .Q31M ONE Last Infusion: 01/24/20 09:01 Dose: Infused Documented by: Dextrose (Dextrose 10%-Water) 250 mls @ 999 mls/hr IV .Q16M PRN; Protocol PRN Reason: HYPOGLYCEMIA Levofloxacin (Levaquin Iv) 750 mg in 150 mls @ 100 mls/hr IV Q24 [facility] Last Infusion: 01/25/20 13:49 Dose: Infused Documented by: Losartan Potassium (Cozaar) 25 mg PO DAILY [facility] Last Admin: 01/25/20 10:27 Dose: 25 mg Documented by: Metformin HCl (Glucophage) 500 mg PO DAILY@1000 [facility] Last Admin: 01/25/20 10:27 Dose: 500 mg Documented by: Metformin HCl (Glucophage) 250 mg PO QHS [facility] Last Admin: 01/25/20 21:00 Dose: 250 mg Documented by: Nutritional Formula (Lactose Free) (Glucerna Shake) 120 ml PO 4X/DAY [facility] Last Admin: 01/25/20 21:02 Dose: 120 ml Documented by: Potassium Chloride (K-Dur) 20 meq PO BID [facility] Last Admin: 01/25/20 20:57 Dose: 20 meq Documented by: Sodium Chloride () 10 - 40 ml IV UD PRN PRN Reason: SALINE FLUSH Last Admin: 01/26/20 02:43 Dose: 10 ml Documented by: Medical Necessity - Tobacco Use Smoking Status: Former smoker Tobacco Use: Cigarettes - quit 3 years ago Assessment/Plan All Active Problems (Last Reviewed 10/01/19 @ 11:31 by Chikis Mojica) Acute kidney injury (Acute) Acute and chronic respiratory failure with hypoxia (Acute) COPD exacerbation (Acute) RECOMMENDATIONS: 1. Await COVID testing 2. Empiric antibiotics pending culture results 3. Wean IV steroids, schedule bronchodilators and mucolytic at current dosing 4. Increase activity as tolerated 5. BiPAP breaks as tolerated. Could transition to AVAPS with a targeted tidal volume of 500 (home setting) 6. Wean oxygen as tolerated. Walking oximetry prior to discharge IMPRESSIONS: 1. Acute on chronic hypoxic and hypercarbic respiratory failure Patient with advanced lung disease at baseline. Patient was last known FEV1 of 20% of predicted. Patient appears to be responding well to BiPAP therapy. Will attempt BiPAP breaks as tolerated today. Patient has had multiple viral infections leading to similar type presentations in the past. COVID-19 has been sent, but viral panel is negative. Will wean steroids today. Potential transition to p.o. prednisone tomorrow. Leukocytosis is grossly unchanged, but this may be a result of steroids. No fever has been reported. 2. COPD exacerbation Patient had PFTs in May which showed severe partially reversible ventilatory defect with an FEV1 in the 20s. See #1. Unclear if patient has been compliant with home trilogy ventilator. Patient did not make an attempt to contact our office prior to presenting for this exacerbation. Would continued scheduled bronchodilator given his reversibility on PFT. Multiple cultures are currently pending. 3. CAD s/pPTCA/anxiety/hyperlipidemia/hypertension/acute kidney injury Complicates care, management, recovery, and prognosis. Management per hospitalist. Patient appears to have had acute kidney injury secondary to prerenal etiology. This has improved with hydration. Inpatient E&M: 67277 Subs Hosp L2
--- NOTE | 2020-01-26 09:28 | PN_ITS ---
Patient Problems: Active and Suspected Problems (Last Reviewed 10/01/19 @ 11:31 by Chikis Mojica) Acute kidney injury (Acute) Subjective: Patient seen and examined. He still complains of feeling short of breath. He denies chest pain or palpitations, dizziness, nausea vomiting or diarrhea review of systems otherwise negative. Labs and vitals reviewed. He still remains tachypneic with respiratory rate of 122 this morning and has mild tachycardia with heart rate of 104. Vitals/I&O's: Vital Signs Temp Pulse Resp BP Pulse Ox 97.2 F L 104 H 22 H 107/44 L 97 01/26/20 02:44 01/26/20 06:47 01/26/20 06:47 01/26/20 02:44 01/26/20 06:51 Oxygen Flow Rate (L/min) 5 Oxygen Delivery Method Nasal Cannula Weight: 224 lb 6.889 oz Body Mass Index (BMI) 31.6 Intake and Output for Last 24 Hours 01/24/20 01/25/20 01/26/20 23:59 23:59 23:59 Intake Total 650.00 / 1130.00 990 / 990 222 / 222 Output Total 300 / 400 1000 / 1000 100 / 100 Balance 350.00 / 730.00 -10 / -10 122 / 122 General: Alert, Oriented x3, Cooperative, No apparent distress HEENT: Atraumatic, PERRLA, EOMI, Normocephalic Oral: Moist Mucosa Neck: Supple, No JVD, Negative Carotid Bruits Lungs: - - diminished breath sounds bibasally, tachypnea, no wheezing or crackles. on 5L of oxygen by nasal canula Cardiovascular: mild tachycardia, Regular Rhythm, Normal S1, Normal S2, No murmurs Abdomen: Bowel Sounds Present, Soft, Non Tender, Non-Distended, No Hepato- splenomegaly Extremities: No clubbing, No cyanosis, No edema, Capillary Refill Less than 3 Seconds Skin: No rashes, No breakdown Musculoskeletal: No Tenderness to Palpation of Joints or Extremities Lymphatic: No Cervical, Supraclavicular, or Inguinal Adenopathy Neurological: Cranial nerves II-XII grossly intact, Neuro grossly intact, Motor Exam 5/5 strength throughout Psych/Mental Status: Normal Affect, Appropriate, Alert and oriented to time, place, person, mood and affect Microbiology Past 72 Hours 01/24/20 06:30 Blood Culture (Wb) #2 - Left Hand Blood Culture - Preliminary No growth in 48 hours. 01/24/20 06:20 Blood Culture (Wb) - Anticubital Right Blood Culture - Preliminary No growth in 48 hours. 01/25/20 12:55 Sputum, Expectorated/Coughed Gram Stain - Final 01/24/20 07:30 Mucosa - Nasopharyngeal Respiratory Panel (PCR) - Final Laboratory Results 01/24/20 10:55: COVID-19 (JAMAR) Pending 01/25/20 12:51: POC Glucose 214 H 01/25/20 16:48: POC Glucose 163 H 01/25/20 21:18: POC Glucose 169 H 01/26/20 07:00: WBC 19.6 H, RBC 4.63, Hgb 11.2 L, Hct 38.2 L, MCV 82.5, MCH 24.2 L, MCHC 29.3 L, RDW Std Deviation 47.7 H, RDW Coeff of Asael 15.9 H, Plt Count 396, MPV 9.1, Immature Gran % (Auto) 1.000 H, Neut % (Auto) 91.7 H, Lymph % (Auto) 3.9 L, [place] % (Auto) 3.3, Eos % (Auto) 0.0, Baso % (Auto) 0.1, Absolute Neuts (auto) 18.0 H, Absolute Lymphs (auto) 0.77 L, Nucleated RBC % 0 01/26/20 07:00: Sodium 138, Potassium 4.2, Chloride 101, Carbon Dioxide 30.0, Anion Gap 7, BUN 25 H, Creatinine 1.22, Estim Creat Clear Calc 68.58, Est GFR (MDRD) Af Amer 78, Est GFR (MDRD) Non-Af 64, BUN/Creatinine Ratio 20.5 H, Glucose 163 H, Calcium 9.1 Diagnostic Data Chest X-Ray 01/24/20 06:15 IMPRESSION: Emphysema without pneumonia or atelectasis. Electronically Signed: Omid Graham MD at 7:44 EDT Tel , Service support , Current Medications Albuterol/Ipratropium (Duoneb) 3 ml INHALATION Q4H.RT [facility] Last Admin: 01/26/20 06:46 Dose: 3 ml Documented by: Aspirin (Aspirin, Baby) 81 mg PO DAILY [facility] Last Admin: 01/25/20 10:27 Dose: 81 mg Documented by: Atorvastatin Calcium (Lipitor) 40 mg PO QHS [facility] Last Admin: 01/25/20 21:01 Dose: 40 mg Documented by: Bupropion HCl (Wellbutrin Tablets) 100 mg PO BID [facility] Last Admin: 01/25/20 21:01 Dose: 100 mg Documented by: Clopidogrel Bisulfate (Plavix) 75 mg PO DAILY [facility] Last Admin: 01/25/20 10:26 Dose: 75 mg Documented by: Clotrimazole (Mycelex) 10 mg MUCOUS MEM TID PRN PRN Reason: thrush Enoxaparin Sodium (Lovenox) 40 mg SC DAILY [facility] Last Admin: 01/25/20 10:25 Dose: 40 mg Documented by: Famotidine (Pepcid) 20 mg PO BID [facility] Last Admin: 01/25/20 21:01 Dose: 20 mg Documented by: Furosemide (Lasix) 40 mg PO BIDLX [facility] Last Admin: 01/25/20 16:54 Dose: 40 mg Documented by: Glucagon () 1 mg IM .X1 PRN PRN Reason: Hypoglycemia Sodium Chloride () 500 mls @ 999 mls/hr IV .Q31M ONE Last Infusion: 01/24/20 09:01 Dose: Infused Documented by: Dextrose (Dextrose 10%-Water) 250 mls @ 999 mls/hr IV .Q16M PRN; Protocol PRN Reason: HYPOGLYCEMIA Levofloxacin (Levaquin Iv) 750 mg in 150 mls @ 100 mls/hr IV Q24 [facility] Last Infusion: 01/25/20 13:49 Dose: Infused Documented by: Losartan Potassium (Cozaar) 25 mg PO DAILY [facility] Last Admin: 01/25/20 10:27 Dose: 25 mg Documented by: Metformin HCl (Glucophage) 500 mg PO DAILY@1000 [facility] Last Admin: 01/25/20 10:27 Dose: 500 mg Documented by: Metformin HCl (Glucophage) 250 mg PO QHS [facility] Last Admin: 01/25/20 21:00 Dose: 250 mg Documented by: Methylprednisolone (Solu-Medrol) 40 mg IV Q12 [facility] Nutritional Formula (Lactose Free) (Glucerna Shake) 120 ml PO 4X/DAY [facility] Last Admin: 01/25/20 21:02 Dose: 120 ml Documented by: Potassium Chloride (K-Dur) 20 meq PO BID [facility] Last Admin: 01/25/20 20:57 Dose: 20 meq Documented by: Sodium Chloride () 10 - 40 ml IV UD PRN PRN Reason: SALINE FLUSH Last Admin: 01/26/20 02:43 Dose: 10 ml Documented by: STROKE Vital Signs/Narrative: Vital Signs Pulse Resp Pulse Ox 01/26/20 06:51 97 01/26/20 06:47 104 H 22 H Medical Necessity - Tobacco Use Smoking Status: Former smoker Tobacco Use: Cigarettes - quit 3 years ago Assessment/Plan All Active Problems (Last Reviewed 10/01/19 @ 11:31 by Chikis Mojica) Acute kidney injury (Acute) Acute and chronic respiratory failure with hypoxia (Acute) COPD exacerbation (Acute) 59 y/o admitted with a complaint of shortness of breath 1. Acute on chronic hypoxic respiratory failure due to COPD exacerbation * on 5L of oxygen. still feels short of breath. * on IV solumedrol 40mg q8 * on IV levaquin 750mg daily * breathing treatments with duonebs * respiratory panel negative * pulmonology on board * blood cultures negative. * COVID screen pending * 2; Acute COPD exacerbation: as under 1. On Roflumilast and Azelastin as well as Symbicort. 3. Chronci HFrEF: on lasix. not in exacerbation. BNP was only 31. 4. Type 2 diabetes mellitus: Metformin on hold. Insulin sliding scale. Accu- Cheks AC at bedtime. 5. CAD s/p stents: On aspirin and Plavix as well as statin. 7. Hypertension: On metoprolol and losartan. 8. Hyperlipidemia: On statin. 9. Anxiety: On bupropion 10. MICHELLE: stable. DVT prophylaxis: Lovenox CODE STATUS: Full code Inpatient E&M: 81531 Subs Hosp L2
[2020-01-26] MEDS: Famotidine 20 MG Tablet PO ×2 (09:45→22:35)
[2020-01-26] MEDS: Enoxaparin 40 MG/0.4 ML Syringe SC (09:45)
[2020-01-26] MEDS: Clopidogrel Bisulfate 75 MG Tablet PO (09:46)
[2020-01-26] MEDS: buPROPion 100 MG Tablet PO ×2 (09:46→22:35)
[2020-01-26] MEDS: Furosemide 40 MG Tablet PO ×2 (09:46→17:10)
[2020-01-26] MEDS: Losartan Potassium 25 MG Tablet PO (09:46)
[2020-01-26] MEDS: Aspirin 81 MG TAB.CHEW PO (09:46)
[2020-01-26] MEDS: levoFLOXacin IV 750 MG/150 ML BAG 100 MG IV (09:48)
[2020-01-26] MEDS: metFORMIN HCl 500 MG Tablet PO (09:53)
[2020-01-26 17:16] LABS: Bedside Glucose 103 mg/dL (70-110)
[2020-01-26] MEDS: metFORMIN HCl 500 MG Tablet 250 MG PO (22:36)
[2020-01-26] MEDS: Atorvastatin Calcium 40 MG Tablet PO (22:36)
[2020-01-26] MEDS: Glucerna Shake 120 ML LIQUID PO (22:37)
[2020-01-26 22:40] LABS: Bedside Glucose 97 mg/dL (70-110)
[2020-01-27] VITALS (17 sets, daily range): BP systolic 115–132; BP diastolic 63–76; PULSE 82–105; RESP 12–23; TEMP 36.5–37; O2SAT 95–99
[2020-01-27] MEDS: Ipratropium/Albuterol Sulfate 3 ML AMPUL.NEB INHALATION ×6 (02:35→23:23)
[2020-01-27 03:56] LABS: Absolute Lymphocyte Count 0.89 X10^3/uL (0.83-4.51); Absolute Neutrophil Count 13.6 X10^3/uL (2.0-7.7); Basophil# 0.02 X10^3/uL; Basophil% 0.1 % (0-1); Hematocrit 38.6 % (40-54); Hemoglobin 11.5 g/dL (13.0-16.5); Lymphocyte # 0.89 X10^3/ul (4.0); Lymphocyte % 5.9 % (19-41); Mean Corp Hgb Conc 29.8 g/dL (32-36); Mean Corpuscular Hgb 24.6 pg (27.0-32.0); Mean Corpuscular Volume 82.7 fL (80-94); Mean Platelet Vol. 8.9 fl (6.2-12.0); Monocyte# 0.55 X10^3/uL; Monocyte% 3.6 % (0-10); NRBC Flagged by Analyzer 0 % (0-5); Neutrophil # 13.55 X10^3/uL (2.7-7.7); Neutrophil % 89.4 % (47-70); Platelet Count 378 K/mm3 (150-450); RBC Distribution Width CV 15.9 % (11.6-14.6); RBC Distribution Width SD 47.9 fl (35.1-43.9); Red Blood Count 4.67 M/mm3 (4.6-6.2); White Blood Count 15.2 K/mm3 (4.4-11.0)
[2020-01-27 04:08] LABS: Anion Gap 5 (5-15); BUN 22 mg/dL (7-18); BUN/Creat Ratio 17.7 RATIO (10-20); Calcium,Total 9.1 mg/dL (8.5-10.1); Chloride 98 mmol/L (98-107); Creatinine, Serum 1.24 mg/dL (0.70-1.30); EST Glomerular Filtration Rate 63 mL/min (>60); Est Glom Filt Rate - Afr Amer 76 mL/min (>60); Estimated Creatinine Clearance 67.47 ml/min; Glucose 158 mg/dL (74-106); Potassium 4.2 mmol/L (3.5-5.1); Sodium Level 136 mmol/L (136-145)
[2020-01-27 06:56] LABS: Bedside Glucose 136 mg/dL (70-110)
--- NOTE | 2020-01-27 07:38 | PN_ITS ---
Patient Problems: Active and Suspected Problems (Last Reviewed 10/01/19 @ 11:31 by Chikis Mojica) Acute kidney injury (Acute) Subjective: Patient did okay overnight. Patient reports no real subjective change in overall condition. Patient continues to use BiPAP overnight, but is on baseline nasal cannula during the day. Patient states cough has improved somewhat, but he still gets short of breath with walking to the bathroom. Objective: Patient's COVID testing came back negative overnight. - Physical Exam Vitals/I&O's: Vital Signs Temp Pulse Resp BP Pulse Ox 36.5 C L 89 20 H 132/63 H 97 01/27/20 05:50 01/27/20 05:50 01/27/20 05:50 01/27/20 05:50 01/27/20 05:50 Oxygen Flow Rate (L/min) 5 Oxygen Delivery Method Nasal Cannula Weight: 101.8 kg Body Mass Index (BMI) 31.6 Intake and Output for Last 24 Hours 01/25/20 01/26/20 01/27/20 23:59 23:59 23:59 Intake Total 990 / 990 372 / 372 222 / 222 Output Total 1000 / 1000 2225 / 2225 400 / 400 Balance -10 / -10 -1853 / -1853 -178 / -178 General: Alert, Oriented x3, Cooperative, - - Mild conversational dyspnea. Obese. Appears older than stated age. HEENT: Atraumatic, PERRLA, EOMI, Normocephalic, - - No scleral icterus or injection noted Oral: Moist Mucosa, No Gingival or Mucosal Lesions/ Ulcerations Neck: Supple, No JVD, No Nodes, Trachea Midline Lungs: No rhonchi, No wheeze, No rales, Diminished, - Cardiovascular: Regular rate - Symmetric expansion. No dullness to percussion., Regular Rhythm, Normal S1, Normal S2, No murmurs, No rub noted, No Gallop Abdomen: Bowel Sounds Present, Soft, Non Tender, Non-Distended, Obese Extremities: No cyanosis, No edema, Capillary Refill Less than 3 Seconds, Clubbing Skin: No rashes, No breakdown Musculoskeletal: No Tenderness to Palpation of Joints or Extremities Lymphatic: No Cervical, Supraclavicular, or Inguinal Adenopathy Neurological: Cranial nerves II-XII grossly intact, Neuro grossly intact, Motor Exam 5/5 strength throughout Psych/Mental Status: Alert and oriented to time, place, person, mood and affect Microbiology Past 72 Hours 01/24/20 06:30 Blood Culture (Wb) #2 - Left Hand Blood Culture - Preliminary No growth in 48 hours. 01/24/20 06:20 Blood Culture (Wb) - Anticubital Right Blood Culture - Preliminary No growth in 48 hours. 01/25/20 12:55 Sputum, Expectorated/Coughed Gram Stain - Final 01/24/20 07:30 Mucosa - Nasopharyngeal Respiratory Panel (PCR) - Final Laboratory Results 01/24/20 10:55: COVID-19 (JAMAR) Not Detected 01/26/20 07:00: Sodium 138, Potassium 4.2, Chloride 101, Carbon Dioxide 30.0, Anion Gap 7, BUN 25 H, Creatinine 1.22, Estim Creat Clear Calc 68.58, Est GFR (MDRD) Af Amer 78, Est GFR (MDRD) Non-Af 64, BUN/Creatinine Ratio 20.5 H, Glucose 163 H, Calcium 9.1 01/26/20 17:07: POC Glucose 103 01/26/20 22:33: POC Glucose 97 01/27/20 03:50: WBC 15.2 H, RBC 4.67, Hgb 11.5 L, Hct 38.6 L, MCV 82.7, MCH 24.6 L, MCHC 29.8 L, RDW Std Deviation 47.9 H, RDW Coeff of Asael 15.9 H, Plt Count 378, MPV 8.9, Immature Gran % (Auto) 1.000 H, Neut % (Auto) 89.4 H, Lymph % (Auto) 5.9 L, [place] % (Auto) 3.6, Eos % (Auto) 0.0, Baso % (Auto) 0.1, Absolute Neuts (auto) 13.6 H, Absolute Lymphs (auto) 0.89, Nucleated RBC % 0 01/27/20 03:50: Sodium 136, Potassium 4.2, Chloride 98, Carbon Dioxide 33.0 H, Anion Gap 5, BUN 22 H, Creatinine 1.24, Estim Creat Clear Calc 67.47, Est GFR (MDRD) Af Amer 76, Est GFR (MDRD) Non-Af 63, BUN/Creatinine Ratio 17.7, Glucose 158 H, Calcium 9.1 04/19/20 06:52: POC Glucose 136 H Current Medications Albuterol/Ipratropium (Duoneb) 3 ml INHALATION Q4H.RT [facility] Last Admin: 01/27/20 06:56 Dose: 3 ml Documented by: Aspirin (Aspirin, Baby) 81 mg PO DAILY [facility] Last Admin: 01/26/20 09:46 Dose: 81 mg Documented by: Atorvastatin Calcium (Lipitor) 40 mg PO QHS [facility] Last Admin: 01/26/20 22:36 Dose: 40 mg Documented by: Bupropion HCl (Wellbutrin Tablets) 100 mg PO BID [facility] Last Admin: 01/26/20 22:35 Dose: 100 mg Documented by: Clopidogrel Bisulfate (Plavix) 75 mg PO DAILY [facility] Last Admin: 01/26/20 09:46 Dose: 75 mg Documented by: Clotrimazole (Mycelex) 10 mg MUCOUS MEM TID PRN PRN Reason: thrush Enoxaparin Sodium (Lovenox) 40 mg SC DAILY [facility] Last Admin: 01/26/20 09:45 Dose: 40 mg Documented by: Famotidine (Pepcid) 20 mg PO BID [facility] Last Admin: 01/26/20 22:35 Dose: 20 mg Documented by: Furosemide (Lasix) 40 mg PO BIDLX [facility] Last Admin: 01/26/20 17:10 Dose: 40 mg Documented by: Glucagon () 1 mg IM .X1 PRN PRN Reason: Hypoglycemia Sodium Chloride () 500 mls @ 999 mls/hr IV .Q31M ONE Last Infusion: 01/24/20 09:01 Dose: Infused Documented by: Dextrose (Dextrose 10%-Water) 250 mls @ 999 mls/hr IV .Q16M PRN; Protocol PRN Reason: HYPOGLYCEMIA Levofloxacin (Levaquin Iv) 750 mg in 150 mls @ 100 mls/hr IV Q24 [facility] Last Infusion: 01/26/20 11:19 Dose: Infused Documented by: Losartan Potassium (Cozaar) 25 mg PO DAILY [facility] Last Admin: 01/26/20 09:46 Dose: 25 mg Documented by: Metformin HCl (Glucophage) 500 mg PO DAILY@1000 [facility] Last Admin: 01/26/20 09:53 Dose: 500 mg Documented by: Metformin HCl (Glucophage) 250 mg PO QHS [facility] Last Admin: 01/26/20 22:36 Dose: 250 mg Documented by: Methylprednisolone (Solu-Medrol) 40 mg IV Q12 [facility] Last Admin: 01/26/20 22:37 Dose: 40 mg Documented by: Nutritional Formula (Lactose Free) (Glucerna Shake) 120 ml PO 4X/DAY [facility] Last Admin: 01/26/20 22:37 Dose: 120 ml Documented by: Potassium Chloride (K-Dur) 20 meq PO BID [facility] Last Admin: 01/26/20 22:35 Dose: 20 meq Documented by: Sodium Chloride () 10 - 40 ml IV UD PRN PRN Reason: SALINE FLUSH Last Admin: 01/26/20 22:40 Dose: 10 ml Documented by: Medical Necessity - Tobacco Use Smoking Status: Former smoker Tobacco Use: Cigarettes - quit 3 years ago Assessment/Plan All Active Problems (Last Reviewed 10/01/19 @ 11:31 by Chikis Mojica) Acute kidney injury (Acute) Acute and chronic respiratory failure with hypoxia (Acute) COPD exacerbation (Acute) RECOMMENDATIONS: 1. Transition to prednisone therapy 2. Empiric antibiotics pending culture results to complete a 7-day course 3. Continue bronchodilators and mucolytic at current dosing 4. Increase activity as tolerated 5. BiPAP breaks as tolerated. Could transition to AVAPS with a targeted tidal volume of 500 (home setting) 6. Wean oxygen as tolerated. Walking oximetry prior to discharge IMPRESSIONS: 1. Acute on chronic hypoxic and hypercarbic respiratory failure Patient with advanced lung disease at baseline. Patient was last known FEV1 of 20% of predicted. Patient appears to be responding well to BiPAP therapy. Patient off of BiPAP throughout the day yesterday. Patient has had multiple viral infections leading to similar type presentations in the past. COVID-19 negative. Will transition to p.o. steroids today. Leukocytosis is improving no fever has been reported. 2. COPD exacerbation Patient had PFTs in May which showed severe partially reversible ventilatory defect with an FEV1 in the 20s. See #1. Unclear if patient has been compliant with home trilogy ventilator. Patient did not make an attempt to contact our office prior to presenting for this exacerbation. Would continued scheduled bronchodilator given his reversibility on PFT. Multiple cultures are negative. 3. CAD s/pPTCA/anxiety/hyperlipidemia/hypertension/acute kidney injury Complicates care, management, recovery, and prognosis. Management per hospitalist. Patient appears to have had acute kidney injury secondary to prerenal etiology. This has improved with hydration. Inpatient E&M: 93884 Subs Hosp L2
--- NOTE | 2020-01-27 09:16 | PCM.PN.HOSP ---
Patient Problems: Active and Suspected Problems (Last Reviewed 10/01/19 @ 11:31 by Chikis Mojica) Acute kidney injury (Acute) Subjective: Patient seen and examined. He complains of feeling short of breath, and still feels he is not at his baseline. He still has a cough. He denies fever, chills, palpitations, dizziness, nausea or vomiting. Review of systems is otherwise negative. He still has been mildly tachycardic, and respiratory rate is ~ 22. Vitals/I&O's: Vital Signs Temp Pulse Resp BP Pulse Ox 97.7 F L 105 H 22 H 132/63 H 98 01/27/20 05:50 01/27/20 08:42 01/27/20 06:56 01/27/20 05:50 01/27/20 06:56 Oxygen Flow Rate (L/min) 5 Oxygen Delivery Method Nasal Cannula Weight: 224 lb 6.889 oz Body Mass Index (BMI) 31.6 Intake and Output for Last 24 Hours 01/25/20 01/26/20 01/27/20 23:59 23:59 23:59 Intake Total 990 / 990 372 / 372 222 / 222 Output Total 1000 / 1000 2225 / 2225 400 / 400 Balance -10 / -10 -1853 / -1853 -178 / -178 General: Alert, Oriented x3, Cooperative, No apparent distress HEENT: Atraumatic, PERRLA, EOMI, Normocephalic Oral: Moist Mucosa Neck: Supple, No JVD, Negative Carotid Bruits Lungs: - - diminished breath sounds bibasally, tachypnea, no wheezing or crackles. on 5L of oxygen by nasal canula Cardiovascular: mild tachycardia, Regular Rhythm, Normal S1, Normal S2, No murmurs Abdomen: Bowel Sounds Present, Soft, Non Tender, Non-Distended, No Hepato-splenomegaly Extremities: No clubbing, No cyanosis, No edema, Capillary Refill Less than 3 Seconds Skin: No rashes, No breakdown Musculoskeletal: No Tenderness to Palpation of Joints or Extremities Lymphatic: No Cervical, Supraclavicular, or Inguinal Adenopathy Neurological: Cranial nerves II-XII grossly intact, Neuro grossly intact, Motor Exam 5/5 strength throughout Psych/Mental Status: Normal Affect, Appropriate, Alert and oriented to time, place, person, mood and affect Microbiology Past 72 Hours 01/24/20 06:30 Blood Culture (Wb) #2 - Left Hand Blood Culture - Preliminary No growth in 48 hours. 01/24/20 06:20 Blood Culture (Wb) - Anticubital Right Blood Culture - Preliminary No growth in 48 hours. 01/25/20 12:55 Sputum, Expectorated/Coughed Gram Stain - Final 01/24/20 07:30 Mucosa - Nasopharyngeal Respiratory Panel (PCR) - Final Laboratory Results 01/24/20 10:55: COVID-19 (JAMAR) Not Detected 01/26/20 17:07: POC Glucose 103 01/26/20 22:33: POC Glucose 97 01/27/20 03:50: WBC 15.2 H, RBC 4.67, Hgb 11.5 L, Hct 38.6 L, MCV 82.7, MCH 24.6 L, MCHC 29.8 L, RDW Std Deviation 47.9 H, RDW Coeff of Asael 15.9 H, Plt Count 378, MPV 8.9, Immature Gran % (Auto) 1.000 H, Neut % (Auto) 89.4 H, Lymph % (Auto) 5.9 L, [place] % (Auto) 3.6, Eos % (Auto) 0.0, Baso % (Auto) 0.1, Absolute Neuts (auto) 13.6 H, Absolute Lymphs (auto) 0.89, Nucleated RBC % 0 01/27/20 03:50: Sodium 136, Potassium 4.2, Chloride 98, Carbon Dioxide 33.0 H, Anion Gap 5, BUN 22 H, Creatinine 1.24, Estim Creat Clear Calc 67.47, Est GFR (MDRD) Af Amer 76, Est GFR (MDRD) Non-Af 63, BUN/Creatinine Ratio 17.7, Glucose 158 H, Calcium 9.1 01/27/20 06:52: POC Glucose 136 H Diagnostic Data Chest X-Ray 01/24/20 06:15 IMPRESSION: Emphysema without pneumonia or atelectasis. Electronically Signed: Omid Graham MD at 7:44 EDT Tel , Service support , Current Medications Albuterol/Ipratropium (Duoneb) 3 ml INHALATION Q4H.RT [facility] Last Admin: 01/27/20 06:56 Dose: 3 ml Documented by: Aspirin (Aspirin, Baby) 81 mg PO DAILY [facility] Last Admin: 01/26/20 09:46 Dose: 81 mg Documented by: Atorvastatin Calcium (Lipitor) 40 mg PO QHS [facility] Last Admin: 01/26/20 22:36 Dose: 40 mg Documented by: Bupropion HCl (Wellbutrin Tablets) 100 mg PO BID [facility] Last Admin: 01/26/20 22:35 Dose: 100 mg Documented by: Clopidogrel Bisulfate (Plavix) 75 mg PO DAILY [facility] Last Admin: 01/26/20 09:46 Dose: 75 mg Documented by: Clotrimazole (Mycelex) 10 mg MUCOUS MEM TID PRN PRN Reason: thrush Enoxaparin Sodium (Lovenox) 40 mg SC DAILY [facility] Last Admin: 01/26/20 09:45 Dose: 40 mg Documented by: Famotidine (Pepcid) 20 mg PO BID [facility] Last Admin: 01/26/20 22:35 Dose: 20 mg Documented by: Furosemide (Lasix) 40 mg PO BIDLX [facility] Last Admin: 01/26/20 17:10 Dose: 40 mg Documented by: Glucagon () 1 mg IM .X1 PRN PRN Reason: Hypoglycemia Sodium Chloride () 500 mls @ 999 mls/hr IV .Q31M ONE Last Infusion: 01/24/20 09:01 Dose: Infused Documented by: Dextrose (Dextrose 10%-Water) 250 mls @ 999 mls/hr IV .Q16M PRN; Protocol PRN Reason: HYPOGLYCEMIA Levofloxacin (Levaquin Iv) 750 mg in 150 mls @ 100 mls/hr IV Q24 [facility] Last Infusion: 01/26/20 11:19 Dose: Infused Documented by: Losartan Potassium (Cozaar) 25 mg PO DAILY [facility] Last Admin: 01/26/20 09:46 Dose: 25 mg Documented by: Metformin HCl (Glucophage) 500 mg PO DAILY@1000 [facility] Last Admin: 01/26/20 09:53 Dose: 500 mg Documented by: Metformin HCl (Glucophage) 250 mg PO QHS [facility] Last Admin: 01/26/20 22:36 Dose: 250 mg Documented by: Nutritional Formula (Lactose Free) (Glucerna Shake) 120 ml PO 4X/DAY [facility] Last Admin: 01/26/20 22:37 Dose: 120 ml Documented by: Potassium Chloride (K-Dur) 20 meq PO BID [facility] Last Admin: 01/26/20 22:35 Dose: 20 meq Documented by: Prednisone () 40 mg PO DAILY@0800 [facility] Sodium Chloride () 10 - 40 ml IV UD PRN PRN Reason: SALINE FLUSH Last Admin: 01/26/20 22:40 Dose: 10 ml Documented by: STROKE Vital Signs/Narrative: Vital Signs Temp Pulse Resp BP Pulse Ox 01/27/20 08:42 105 H 01/27/20 06:56 99 22 H 98 01/27/20 05:50 97.7 F L 89 20 H 132/63 H 97 Medical Necessity - Tobacco Use Smoking Status: Former smoker Tobacco Use: Cigarettes - quit 3 years ago Assessment/Plan All Active Problems (Last Reviewed 10/01/19 @ 11:31 by Chikis Mojica) Acute kidney injury (Acute) Acute and chronic respiratory failure with hypoxia (Acute) COPD exacerbation (Acute) 59 y/o admitted with a complaint of shortness of breath 1. Acute on chronic hypoxic respiratory failure due to COPD exacerbation on 5L of oxygen. still feels short of breath and still feels he is not at his baseline. on IV solumedrol 40mg q8 on IV levaquin 750mg daily breathing treatments with duonebs respiratory panel negative pulmonology on board blood cultures negative. COVID screen pending 2; Acute COPD exacerbation: as under 1. On Roflumilast and Azelastin as well as Symbicort. 3. Chronic HFrEF: on lasix. not in exacerbation. 4. Type 2 diabetes mellitus: Metformin on hold. Insulin sliding scale. Accu-Cheks AC at bedtime. 5. CAD s/p stents: On aspirin and Plavix as well as statin. 7. Hypertension: On metoprolol and losartan. 8. Hyperlipidemia: On statin. 9. Anxiety: On bupropion 10. MICHELLE: stable. DVT prophylaxis: Lovenox CODE STATUS: Full code Inpatient E&M: 38226 Subs Hosp L2
[2020-01-27] MEDS: Famotidine 20 MG Tablet PO ×2 (09:30→22:18)
[2020-01-27] MEDS: Enoxaparin 40 MG/0.4 ML Syringe SC (09:30)
[2020-01-27] MEDS: Furosemide 40 MG Tablet PO ×2 (09:30→16:29)
[2020-01-27] MEDS: Aspirin 81 MG TAB.CHEW PO (09:30)
[2020-01-27] MEDS: buPROPion 100 MG Tablet PO ×2 (09:31→22:18)
[2020-01-27] MEDS: metFORMIN HCl 500 MG Tablet PO (09:31)
[2020-01-27] MEDS: Clopidogrel Bisulfate 75 MG Tablet PO (09:32)
[2020-01-27] MEDS: Losartan Potassium 25 MG Tablet PO (09:32)
[2020-01-27] MEDS: predniSONE 20 MG Tablet 40 MG PO (09:40)
[2020-01-27] MEDS: levoFLOXacin IV 750 MG/150 ML BAG 100 MG IV (09:42)
[2020-01-27] MEDS: Glucerna Shake 120 ML LIQUID PO ×4 (09:43→22:17)
[2020-01-27 11:51] LABS: Bedside Glucose 117 mg/dL (70-110)
[2020-01-27 16:56] LABS: Bedside Glucose 125 mg/dL (70-110)
[2020-01-27] MEDS: Atorvastatin Calcium 40 MG Tablet PO (22:18)
[2020-01-27] MEDS: metFORMIN HCl 500 MG Tablet 250 MG PO (22:19)
[2020-01-28] VITALS (14 sets, daily range): BP systolic 123–130; BP diastolic 76–79; PULSE 80–121; RESP 12–21; TEMP 36.6–36.7; O2SAT 94–97
[2020-01-28] MEDS: Ipratropium/Albuterol Sulfate 3 ML AMPUL.NEB INHALATION ×3 (03:27→11:15)
[2020-01-28 05:49] LABS: Absolute Lymphocyte Count 2.52 X10^3/uL (0.83-4.51); Absolute Neutrophil Count 10.4 X10^3/uL (2.0-7.7); Basophil# 0.04 X10^3/uL; Basophil% 0.3 % (0-1); Eosinophil# 0.14 X10^3/uL; Eosinophils% 0.9 % (0-5); Hematocrit 39.4 % (40-54); Hemoglobin 11.7 g/dL (13.0-16.5); Lymphocyte # 2.52 X10^3/ul (4.0); Mean Corp Hgb Conc 29.7 g/dL (32-36); Mean Corpuscular Hgb 24.4 pg (27.0-32.0); Mean Corpuscular Volume 82.3 fL (80-94); Mean Platelet Vol. 8.8 fl (6.2-12.0); Monocyte# 1.54 X10^3/uL; Monocyte% 10.4 % (0-10); NRBC Flagged by Analyzer 0 % (0-5); Neutrophil # 10.35 X10^3/uL (2.7-7.7); Neutrophil % 69.7 % (47-70); POSITIVE DIFFERENTIAL YES; Platelet Count 384 K/mm3 (150-450); RBC Distribution Width CV 15.7 % (11.6-14.6); RBC Distribution Width SD 46.7 fl (35.1-43.9); Red Blood Count 4.79 M/mm3 (4.6-6.2); White Blood Count 14.8 K/mm3 (4.4-11.0)
[2020-01-28 05:53] LABS: Anion Gap 5 (5-15); BUN 21 mg/dL (7-18); BUN/Creat Ratio 21.3 RATIO (10-20); Calcium,Total 9.1 mg/dL (8.5-10.1); Chloride 98 mmol/L (98-107); Creatinine, Serum 0.99 mg/dL (0.70-1.30); EST Glomerular Filtration Rate 82 mL/min (>60); Est Glom Filt Rate - Afr Amer 99 mL/min (>60); Estimated Creatinine Clearance 84.51 ml/min; Glucose 109 mg/dL (74-106); Potassium 3.5 mmol/L (3.5-5.1); Sodium Level 136 mmol/L (136-145)
[2020-01-28 05:54] LABS: Differential Indicated SCAN CRITERIA MET
[2020-01-28 06:50] LABS: Bedside Glucose 94 mg/dL (70-110)
[2020-01-28 06:50] LABS: Differential Comment SCANNED
--- NOTE | 2020-01-28 07:29 | PN_ITS ---
Patient Problems: Active and Suspected Problems (Last Reviewed 10/01/19 @ 11:31 by Chikis Mojica) Acute kidney injury (Acute) Subjective: The patient was seen and examined at the bedside this morning. Events from the last 24 hours have been reviewed. The patient is currently afebrile, hemodynamically stable and maintaining appropriate oxygen saturations on 4 L/min via nasal cannula. The patient is followed longitudinally in the pulmonary medicine clinic by Dr. Mendez. The patient has a baseline 3 L/min supplemental oxygen requirement with exertion based upon 6-minute walk test completed in June 2017. 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 The patient has an FEV1 of 18% of predicted. The patient also has known obstructive sleep apnea, for which it was recommended that the patient be on bilevel with a pressure support of 15/11, according to polysomnogram last completed in 2015. According to documentation, the patient is currently prescribed a noninvasive ventilator in his home environment. Objective: The patient's most recent lab work, culture data and imaging studies have all been personally reviewed. Sputum culture was positive for Haemophilus parainf luenza. Respiratory viral panel was negative. - Physical Exam Vitals/I&O's: Vital Signs Temp Pulse Resp BP Pulse Ox 97.9 F 82 18 123/79 H 96 01/28/20 02:23 01/28/20 05:16 01/28/20 05:16 01/28/20 02:23 01/28/20 05:16 Oxygen Flow Rate (L/min) 5 Oxygen Delivery Method Bi-pap Weight: 225 lb 15.581 oz Body Mass Index (BMI) 31.6 Intake and Output for Last 24 Hours 01/26/20 01/27/20 01/28/20 23:59 23:59 23:59 Intake Total 372 / 372 1971 / 2872 1700 / 1700 Output Total 2225 / 2225 1700 / 2625 1825 / 1825 Balance -1853 / -1853 272 / 247 -125 / -125 General: Alert, Cooperative HEENT: Atraumatic, Normocephalic Oral: No Gingival or Mucosal Lesions/ Ulcerations Neck: Supple, No Nodes, Trachea Midline Lungs: No rhonchi, No wheeze, No rales, Diminished Cardiovascular: Regular rate, Regular Rhythm, Normal S1, Normal S2, No murmurs Abdomen: Bowel Sounds Present, Soft, Non Tender, Non-Distended Extremities: No cyanosis, No edema, Clubbing Skin: No breakdown Musculoskeletal: No Tenderness to Palpation of Joints or Extremities Lymphatic: No Cervical, Supraclavicular, or Inguinal Adenopathy Neurological: Neuro grossly intact Psych/Mental Status: Normal Affect, Appropriate Labs (Last 48 Hours) 01/24/20 01/26/20 01/26/20 10:55 07:00 07:00 WBC 19.6 H RBC 4.63 Hgb 11.2 L Hct 38.2 L MCV 82.5 MCH 24.2 L MCHC 29.3 L RDW Std Deviation 47.7 H RDW Coeff of Asael 15.9 H Plt Count 396 MPV 9.1 Immature Gran % (Auto) 1.000 H Neut % (Auto) 91.7 H Lymph % (Auto) 3.9 L Guthrie % (Auto) 3.3 Eos % (Auto) 0.0 Baso % (Auto) 0.1 Absolute Neuts (auto) 18.0 H Absolute Lymphs (auto) 0.77 L Nucleated RBC % 0 Differential Comment Diff Path Review Sodium 138 Potassium 4.2 Chloride 101 Carbon Dioxide 30.0 Anion Gap 7 BUN 25 H Creatinine 1.22 Estim Creat Clear Calc 68.58 Est GFR (MDRD) Af Amer 78 Est GFR (MDRD) Non-Af 64 BUN/Creatinine Ratio 20.5 H Glucose 163 H Calcium 9.1 COVID-19 (JAMAR) Not Detected POC Glucose 01/26/20 01/26/20 01/27/20 17:07 22:33 03:50 WBC 15.2 H RBC 4.67 Hgb 11.5 L Hct 38.6 L MCV 82.7 MCH 24.6 L MCHC 29.8 L RDW Std Deviation 47.9 H RDW Coeff of Asael 15.9 H Plt Count 378 MPV 8.9 Immature Gran % (Auto) 1.000 H Neut % (Auto) 89.4 H Lymph % (Auto) 5.9 L Guthrie % (Auto) 3.6 Eos % (Auto) 0.0 Baso % (Auto) 0.1 Absolute Neuts (auto) 13.6 H Absolute Lymphs (auto) 0.89 Nucleated RBC % 0 Differential Comment Diff Path Review Sodium Potassium Chloride Carbon Dioxide Anion Gap BUN Creatinine Estim Creat Clear Calc Est GFR (MDRD) Af Amer Est GFR (MDRD) Non-Af BUN/Creatinine Ratio Glucose Calcium COVID-19 (JAMAR) POC Glucose 103 97 01/27/20 01/27/20 01/27/20 03:50 06:52 11:21 WBC RBC Hgb Hct MCV MCH MCHC RDW Std Deviation RDW Coeff of Asael Plt Count MPV Immature Gran % (Auto) Neut % (Auto) Lymph % (Auto) Guthrie % (Auto) Eos % (Auto) Baso % (Auto) Absolute Neuts (auto) Absolute Lymphs (auto) Nucleated RBC % Differential Comment Diff Path Review Sodium 136 Potassium 4.2 Chloride 98 Carbon Dioxide 33.0 H Anion Gap 5 BUN 22 H Creatinine 1.24 Estim Creat Clear Calc 67.47 Est GFR (MDRD) Af Amer 76 Est GFR (MDRD) Non-Af 63 BUN/Creatinine Ratio 17.7 Glucose 158 H Calcium 9.1 COVID- (JAMAR) POC Glucose 136 H 117 H 01/27/20 01/28/20 01/28/20 16:22 05:12 05:12 WBC 14.8 H RBC 4.79 Hgb 11.7 L Hct 39.4 L MCV 82.3 MCH 24.4 L MCHC 29.7 L RDW Std Deviation 46.7 H RDW Coeff of Asael 15.7 H Plt Count 384 MPV 8.8 Immature Gran % (Auto) 1.700 H Neut % (Auto) 69.7 Lymph % (Auto) 17.0 L Guthrie % (Auto) 10.4 H Eos % (Auto) 0.9 Baso % (Auto) 0.3 Absolute Neuts (auto) 10.4 H Absolute Lymphs (auto) 2.52 Nucleated RBC % 0 Differential Comment SCANNED Diff Path Review May foll Sodium 136 Potassium 3.5 Chloride 98 Carbon Dioxide 33.0 H Anion Gap 5 BUN 21 H Creatinine 0.99 Estim Creat Clear Calc 84.51 Est GFR (MDRD) Af Amer 99 Est GFR (MDRD) Non-Af 82 BUN/Creatinine Ratio 21.3 H Glucose 109 H Calcium 9.1 COVID-19 (JAMAR) POC Glucose 125 H 01/28/20 06:44 WBC RBC Hgb Hct MCV MCH MCHC RDW Std Deviation RDW Coeff of Asael Plt Count MPV Immature Gran % (Auto) Neut % (Auto) Lymph % (Auto) Guthrie % (Auto) Eos % (Auto) Baso % (Auto) Absolute Neuts (auto) Absolute Lymphs (auto) Nucleated RBC % Differential Comment Diff Path Review Sodium Potassium Chloride Carbon Dioxide Anion Gap BUN Creatinine Estim Creat Clear Calc Est GFR (MDRD) Af Amer Est GFR (MDRD) Non-Af BUN/Creatinine Ratio Glucose Calcium COVID-19 (JAMAR) POC Glucose 94 Microbiology 01/25/20 12:55 Sputum, Expectorated/Coughed Gram Stain - Final 01/25/20 12:55 Sputum, Expectorated/Coughed Respiratory Culture - Final Haemophilus parainfluenzae Mixed Mayra 01/24/20 06:30 Blood Culture (Wb) #2 - Left Hand Blood Culture - Preliminary No growth in 48 hours. 01/24/20 06:20 Blood Culture (Wb) - Anticubital Right Blood Culture - Preliminary No growth in 48 hours. Clinical Impression(s) from Imaging Studies Chest X-Ray 01/24/20 06:15 IMPRESSION: Emphysema without pneumonia or atelectasis. Electronically Signed: Omid Graham MD at 7:44 EDT Tel , Service support , Current Medications Albuterol/Ipratropium (Duoneb) 3 ml INHALATION Q4H.RT [facility] Last Admin: 01/28/20 07:20 Dose: 3 ml Documented by: Aspirin (Aspirin, Baby) 81 mg PO DAILY [facility] Last Admin: 01/27/20 09:30 Dose: 81 mg Documented by: Atorvastatin Calcium (Lipitor) 40 mg PO QHS [facility] Last Admin: 01/27/20 22:18 Dose: 40 mg Documented by: Bupropion HCl (Wellbutrin Tablets) 100 mg PO BID [facility] Last Admin: 01/27/20 22:18 Dose: 100 mg Documented by: Clopidogrel Bisulfate (Plavix) 75 mg PO DAILY [facility] Last Admin: 01/27/20 09:32 Dose: 75 mg Documented by: Clotrimazole (Mycelex) 10 mg MUCOUS MEM TID PRN PRN Reason: thrush Enoxaparin Sodium (Lovenox) 40 mg SC DAILY [facility] Last Admin: 01/27/20 09:30 Dose: 40 mg Documented by: Famotidine (Pepcid) 20 mg PO BID [facility] Last Admin: 01/27/20 22:18 Dose: 20 mg Documented by: Furosemide (Lasix) 40 mg PO BIDLX [facility] Last Admin: 01/27/20 16:29 Dose: 40 mg Documented by: Glucagon () 1 mg IM .X1 PRN PRN Reason: Hypoglycemia Sodium Chloride () 500 mls @ 999 mls/hr IV .Q31M ONE Last Infusion: 01/24/20 09:01 Dose: Infused Documented by: Dextrose (Dextrose 10%-Water) 250 mls @ 999 mls/hr IV .Q16M PRN; Protocol PRN Reason: HYPOGLYCEMIA Levofloxacin (Levaquin Iv) 750 mg in 150 mls @ 100 mls/hr IV Q24 [facility] Last Infusion: 01/27/20 12:20 Dose: Infused Documented by: Losartan Potassium (Cozaar) 25 mg PO DAILY [facility] Last Admin: 01/27/20 09:32 Dose: 25 mg Documented by: Metformin HCl (Glucophage) 500 mg PO DAILY@1000 [facility] Last Admin: 01/27/20 09:31 Dose: 500 mg Documented by: Metformin HCl (Glucophage) 250 mg PO QHS [facility] Last Admin: 01/27/20 22:19 Dose: 250 mg Documented by: Nutritional Formula (Lactose Free) (Glucerna Shake) 120 ml PO 4X/DAY [facility] Last Admin: 01/27/20 22:17 Dose: 120 ml Documented by: Potassium Chloride (K-Dur) 20 meq PO BID [facility] Last Admin: 01/27/20 22:18 Dose: 20 meq Documented by: Prednisone () 40 mg PO DAILY@0800 [facility] Last Admin: 01/27/20 09:40 Dose: 40 mg Documented by: Sodium Chloride () 10 - 40 ml IV UD PRN PRN Reason: SALINE FLUSH Last Admin: 01/26/20 22:40 Dose: 10 ml Documented by: Medical Necessity - Tobacco Use Smoking Status: Former smoker Tobacco Use: Cigarettes - quit 3 years ago Assessment/Plan All Active Problems (Last Reviewed 10/01/19 @ 11:31 by Chikis Mojica) Acute kidney injury (Acute) Acute and chronic respiratory failure with hypoxia (Acute) COPD exacerbation (Acute) RECOMMENDATIONS: 1. Transition to prednisone therapy. Plan for prednisone taper at discharge. 2. Complete 7-day treatment course of antimicrobials. 3. Continue bronchodilators and mucolytic at current dosing 4. Increase activity as tolerated 5. Wean oxygen as tolerated. Walking oximetry prior to discharge IMPRESSIONS: 1. Acute on chronic hypoxic and hypercarbic respiratory failure Patient with advanced lung disease at baseline. Patient was last known FEV1 of 20% of predicted. Patient appears to be responding well to BiPAP therapy. Patient off of BiPAP throughout the day yesterday. Patient has had multiple viral infections leading to similar type presentations in the past. COVID-19 negative. Will transition to p.o. steroids today. Leukocytosis is improving no fever has been reported. 2. COPD exacerbation Patient had PFTs in May which showed severe partially reversible ventilatory defect with an FEV1 in the 20s. See #1. Unclear if patient has been compliant with home trilogy ventilator. Patient did not make an attempt to contact our office prior to presenting for this exacerbation. Would continued scheduled bronchodilator given his reversibility on PFT. Multiple cultures are negative. 3. CAD s/pPTCA/anxiety/hyperlipidemia/hypertension/acute kidney injury Complicates care, management, recovery, and prognosis. Management per hospitalist. Patient appears to have had acute kidney injury secondary to prerenal etiology. This has improved with hydration. This note was generated with [employer] dictation software. It may contain incorrect words, spelling, and punctuation that were not noted in checking the note before signing. Inpatient E&M: 14489 Subs Hosp L2
[2020-01-28] MEDS: Aspirin 81 MG TAB.CHEW PO (09:08)
[2020-01-28] MEDS: metFORMIN HCl 500 MG Tablet PO (09:08)
[2020-01-28] MEDS: predniSONE 20 MG Tablet 40 MG PO (09:08)
[2020-01-28] MEDS: Losartan Potassium 25 MG Tablet PO (09:08)
[2020-01-28] MEDS: buPROPion 100 MG Tablet PO (09:08)
[2020-01-28] MEDS: Clopidogrel Bisulfate 75 MG Tablet PO (09:08)
[2020-01-28] MEDS: Enoxaparin 40 MG/0.4 ML Syringe SC (09:09)
[2020-01-28] MEDS: Furosemide 40 MG Tablet PO (09:09)
[2020-01-28] MEDS: Famotidine 20 MG Tablet PO (09:09)
[2020-01-28] MEDS: Glucerna Shake 120 ML LIQUID PO (09:13)
[2020-01-28] MEDS: levoFLOXacin IV 750 MG/150 ML BAG 100 MG IV (09:14)
[2020-01-28] MEDS: 0.9% Saline Lock 10 ML Syringe IV (09:16)
--- NOTE | 2020-01-28 10:20 | DCINST_ITS ---
- Discharge Diagnoses Current Active Problems: Current Active and Chronic Problems (Last Reviewed 10/01/19 @ 11:31 by Chikis Mojica) Acute kidney injury (Acute) You will use the following diet at home:: Cardiac Your food should be the consistency of: Regular Your liquids should be the consistency of: Regular/Thin Discharge Activity: Return to Normal Activity Weight Bearing Status: Weight bearing as tolerated Call your doctor if you observe: Fever of 101 or Higher, Shortness of breath, Fainting spells, Swelling in the ankles Instructions: Care for COPD, Treatments for COPD Allergies/Adverse Reactions: Allergies diazepam [From Valium] Adverse Reaction (Verified 01/24/20 06:08) Vomiting Medications to take at Discharge Aspirin [Aspirin, Baby] 81 mg PO DAILY@0800 10/04/14 Atorvastatin Calcium [Lipitor] 40 mg PO QHS 10/04/14 Clopidogrel Bisulfate [Plavix] 75 mg PO DAILY 10/04/14 Furosemide [Lasix] 40 mg PO BID 10/04/14 Multivitamins,Therapeutic [Multivitamin] 1 tab PO DAILY 10/04/14 Budesonide/Formoterol 160/4.5 [Symbicort 160/4.5 Mcg Inhaler (SP)] 2 puff INHALATION BID 02/24/15 Roflumilast [Daliresp] 500 mcg PO DAILY 02/24/15 Famotidine [Pepcid] 20 mg PO BID 08/01/15 bupropion HCl 100 mg tablet 100 mg PO BID 10/25/17 Albuterol Aerosols [Ventolin Aerosols] 2.5 mg INHALATION Q2H PRN PRN #1 box 11/08/17 albuterol sulfate 90 mcg/actuation aerosol inhaler 2 puff INHALATION Q2H PRN g 11/11/17 tiotropium bromide 18 mcg capsule with inhalation device 1 cap INHALATION DAILY 11/11/17 Cholecalciferol (VIT D3) [Vitamin D3] 1,000 unit PO DAILY tab 02/13/18 ipratropium bromide 0.02 % solution for inhalation 0.5 mg INHALATION Q4H ml 05/01/18 losartan 25 mg tablet 25 mg PO DAILY 09/14/18 Budesonide Aerosol [Pulmicort Respules] 0.5 mg INHALATION BID 10/14/18 Azelastine HCl 1 spray INTRANASAL BID PRN 07/24/19 Clotrimazole 10 mg MUCOUS MEMBRANE TID PRN 07/24/19 Ferrous Sulfate 325 mg PO DAILY 07/24/19 Oxygen, Home [Home Oxygen] 4 - 6 lpm NASAL CONT 07/24/19 Potassium Chloride [Klor-Con M20] 20 meq PO BID 07/24/19 metformin 500 mg tablet 250 mg PO DAILY tab 10/01/19 metformin 500 mg tablet 500 mg PO BREAKFAST tab 10/01/19 metoprolol tartrate 25 mg tablet 25 mg PO BID #180 tab 12/13/19 MethylPREDNISolone DosePak [Medrol DosePak] 4 mg PO UD #1 box 01/28/20 levoFLOXacin tablet [Levaquin tablet] 750 mg PO DAILY #3 tab 01/28/20 The following prescriptions were given: levoFLOXacin tablet [Levaquin tablet] 750 mg PO DAILY #3 tab Transmission Status: Pending to [facility] #[facility] MethylPREDNISolone DosePak [Medrol DosePak] 4 mg PO UD #1 box Transmission Status: Pending to [facility] #[facility] Primary Care Physician: Kenia Matthew MD [Primary Care Provider] - Please follow up with your Primary Care Physician in: 1-2 weeks Test Results: Test results from this visit will be discussed in further detail at your follow- up appointment, if applicable. Please Follow Up With: Zac Mendez MD When: 1-2 weeks Proposed Discharge Date: 01/28/20
--- NOTE | 2020-01-28 10:23 | PCM.DC.SUM ---
Discharge Date and Diagnosis Date of Admission: 01/24/20 Date of Discharge: 01/28/20 - Primary Discharge Diagnosis Active and Suspected Problems (Last Reviewed 10/01/19 @ 11:31 by Chikis Mojica) Acute kidney injury (Acute) acute COPD exacerbation. acute on chronic hypoxic and hypercapnic respiratory failure - Secondary Discharge Diagnosis Chronic Problems (Last Reviewed 10/01/19 @ 11:31 by Chikis Mojica) Tobacco abuse (Chronic) Stage 4 very severe COPD by GOLD classification (Chronic) FEV1 20% of predicted CAD (coronary artery disease) (Chronic) Type 2 diabetes mellitus (Chronic) Congestive heart failure (Chronic) MICHELLE (obstructive sleep apnea) (Chronic) Trilogy with 2 LPM oxygen bleed Anxiety (Chronic) Presence of stent in coronary artery (Chronic ~07/2006) [facility] w/stenting to prox RCA Atherosclerotic heart disease of [place] coronary artery without angina pectoris (Chronic) [facility] w/stenting to prox RCA 07/15 Chronic respiratory failure with hypoxia and hypercapnia (Chronic) COPD (chronic obstructive pulmonary disease) (Chronic) Hypertension (Chronic) Hyperlipidemia (Chronic) Hospital Course and Treatment Imaging Results: Diagnostic Data Chest X-Ray 01/24/20 06:15 IMPRESSION: Emphysema without pneumonia or atelectasis. Electronically Signed: Omid Graham MD at 7:44 EDT Tel , Service support , Operations: None Procedures: None Summary of Care Provided: The patient is a 59 year old M with an extensive PMH as outlined. He was admitted via the ED on 01/24/2020 with a complaint of shortness of breath. Patient has chronic respiratory failure due to COPD and is usually on 4L of oxygen at home. He says his shortness of breath started worsening 2 days ago, with associated subjective fever and chills, as well as wheezing. His cough was productive of greenish sputum, but this is chronic. He denied any palpitations, dizziness, chest pain, nausea or vomiting. Review of systems was otherwise negative. He denies any exposure to anyone with coronavirus and says he has not traveled anywhere of late. He has only been around his grandchildren and see that his grandson has been sick and he thought it was due to allergies. On admission in the ED, he was in severe respiratory distress, and was put on BIPAP immediately.n Labs showed wbc of 25.1, with Hb of 12.3, and bicarb of 34, Cr of 1.31. Cr was 1.31 nad lactic acid was 1.5. Initial troponin was negative. CXR showed evidence of emphysema without pneumonia or atelectasis. EKG showed sinus tachycardia with heart rate of [address] changes. ABG done while patient was on BiPAP showed pH of 7.4 with oxygen saturation of 93 and PCO2 of 54.3 and PO2 of 68. He was admitted to be managed for acute on chronic hypoxic respiratory failure due to COPD exacerbation, and COVID rule out. He was started on IV Solu-Medrol and breathing treatments with bronchodilators as well as IV Levaquin. Pulmonology was consulted. COVID screen was ordered and came back negative. Patient was transitioned out of the COVID floor to the progressive care unit. Shortness of breath slowly improved and he was weaned off of oxygen onto his baseline 45 L of oxygen. Patient remained stable and was discharged home on 01/28/2020. He was given a prescription for p.o. Levaquin as well as a Medrol Dosepak and is to use his baseline oxygen of 4-5L to maintain saturation above 90%. 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 Patient seen and examined prior to discharge. He felt that though he was still a bit short of breath. This was however his baseline. He denied any chest pain or palpitations, dizziness, nausea vomiting or diarrhea. Review of symptoms otherwise negative. Labs and vitals reviewed. Home medication reviewed and reconciled. o/e: [] Vital Signs Temp Pulse Resp BP Pulse Ox 98.1 F 121 H 20 H 127/78 H 97 01/28/20 12:45 01/28/20 12:45 01/28/20 12:45 01/28/20 12:45 01/28/20 12:45 General: Alert, Oriented x3, Cooperative, No apparent distress HEENT: Atraumatic, PERRLA, EOMI, Normocephalic Oral: Moist Mucosa Neck: Supple, No JVD, Negative Carotid Bruits Lungs: - - diminished breath sounds bibasally, tachypnea, no wheezing or crackles. on 5L of oxygen by nasal canula Cardiovascular: mild tachycardia, Regular Rhythm, Normal S1, Normal S2, No murmurs Abdomen: Bowel Sounds Present, Soft, Non Tender, Non-Distended, No Hepato-splenomegaly Extremities: No clubbing, No cyanosis, No edema, Capillary Refill Less than 3 Seconds Skin: No rashes, No breakdown Musculoskeletal: No Tenderness to Palpation of Joints or Extremities Lymphatic: No Cervical, Supraclavicular, or Inguinal Adenopathy Neurological: Cranial nerves II-XII grossly intact, Neuro grossly intact, Motor Exam 5/5 strength throughout Psych/Mental Status: Normal Affect, Appropriate, Alert and oriented to time, place, person, mood and affect Plan is for discharge home today with a prescription for p.o. Levaquin 750 mg daily x3 days and a Medrol Dosepak. - Physical Exam Vitals/I&O's: Vital Signs Temp Pulse Resp BP Pulse Ox 97.9 F 88 20 H 123/79 H 96 01/28/20 02:23 01/28/20 07:20 01/28/20 07:20 01/28/20 02:23 01/28/20 08:02 Oxygen Flow Rate (L/min) 5 Oxygen Delivery Method Nasal Cannula Weight: 225 lb 15.581 oz Body Mass Index (BMI) 31.6 Intake and Output for Last 24 Hours 01/26/20 01/27/20 01/28/20 23:59 23:59 23:59 Intake Total 372 / 372 1972 / 2872 1700 / 1700 Output Total 2225 / 2225 1700 / 2625 1825 / 1825 Balance -1853 / -1853 272 / 247 -125 / -125 Microbiology Past 72 Hours 01/25/20 12:55 Sputum, Expectorated/Coughed Gram Stain - Final 01/25/20 12:55 Sputum, Expectorated/Coughed Respiratory Culture - Final Haemophilus parainfluenzae Mixed Mayra 01/24/20 06:30 Blood Culture (Wb) #2 - Left Hand Blood Culture - Preliminary No growth in 48 hours. 01/24/20 06:20 Blood Culture (Wb) - Anticubital Right Blood Culture - Preliminary No growth in 48 hours. Laboratory Results 01/27/20 11:21: POC Glucose 117 H 01/27/20 16:22: POC Glucose 125 H 01/28/20 05:12: WBC 14.8 H, RBC 4.79, Hgb 11.7 L, Hct 39.4 L, MCV 82.3, MCH 24.4 L, MCHC 29.7 L, RDW Std Deviation 46.7 H, RDW Coeff of Asael 15.7 H, Plt Count 384, MPV 8.8, Immature Gran % (Auto) 1.700 H, Neut % (Auto) 69.7, Lymph % (Auto) 17.0 L, Terry % (Auto) 10.4 H, Eos % (Auto) 0.9, Baso % (Auto) 0.3, Absolute Neuts (auto) 10.4 H, Absolute Lymphs (auto) 2.52, Nucleated RBC % 0, Differential Comment SCANNED, Diff Path Review February01/28/20 05:12: Sodium 136, Potassium 3.5, Chloride 98, Carbon Dioxide 33.0 H, Anion Gap 5, BUN 21 H, Creatinine 0.99, Estim Creat Clear Calc 84.51, Est GFR (MDRD) Af Amer 99, Est GFR (MDRD) Non-Af 82, BUN/Creatinine Ratio 21.3 H, Glucose 109 H, Calcium 9.1 01/28/20 06:44: POC Glucose 94 Current Medications Albuterol/Ipratropium (Duoneb) 3 ml INHALATION Q4H.RT [facility] Last Admin: 01/28/20 07:20 Dose: 3 ml Documented by: Aspirin (Aspirin, Baby) 81 mg PO DAILY [facility] Last Admin: 01/28/20 09:08 Dose: 81 mg Documented by: Atorvastatin Calcium (Lipitor) 40 mg PO QHS [facility] Last Admin: 01/27/20 22:18 Dose: 40 mg Documented by: Bupropion HCl (Wellbutrin Tablets) 100 mg PO BID [facility] Last Admin: 01/28/20 09:08 Dose: 100 mg Documented by: Clopidogrel Bisulfate (Plavix) 75 mg PO DAILY [facility] Last Admin: 01/28/20 09:08 Dose: 75 mg Documented by: Clotrimazole (Mycelex) 10 mg MUCOUS MEM TID PRN PRN Reason: thrush Enoxaparin Sodium (Lovenox) 40 mg SC DAILY [facility] Last Admin: 01/28/20 09:09 Dose: 40 mg Documented by: Famotidine (Pepcid) 20 mg PO BID [facility] Last Admin: 01/28/20 09:09 Dose: 20 mg Documented by: Furosemide (Lasix) 40 mg PO BIDLX [facility] Last Admin: 01/28/20 09:09 Dose: 40 mg Documented by: Glucagon () 1 mg IM .X1 PRN PRN Reason: Hypoglycemia Sodium Chloride () 500 mls @ 999 mls/hr IV .Q31M ONE Last Infusion: 01/24/20 09:01 Dose: Infused Documented by: Dextrose (Dextrose 10%-Water) 250 mls @ 999 mls/hr IV .Q16M PRN; Protocol PRN Reason: HYPOGLYCEMIA Levofloxacin (Levaquin Iv) 750 mg in 150 mls @ 100 mls/hr IV Q24 [facility] Last Admin: 01/28/20 09:14 Dose: 100 mls/hr Documented by: Losartan Potassium (Cozaar) 25 mg PO DAILY [facility] Last Admin: 01/28/20 09:08 Dose: 25 mg Documented by: Metformin HCl (Glucophage) 500 mg PO DAILY@1000 [facility] Last Admin: 01/28/20 09:08 Dose: 500 mg Documented by: Metformin HCl (Glucophage) 250 mg PO QHS [facility] Last Admin: 01/27/20 22:19 Dose: 250 mg Documented by: Nutritional Formula (Lactose Free) (Glucerna Shake) 120 ml PO 4X/DAY [facility] Last Admin: 01/28/20 09:13 Dose: 120 ml Documented by: Potassium Chloride (K-Dur) 20 meq PO BID [facility] Last Admin: 01/28/20 09:09 Dose: 20 meq Documented by: Prednisone () 40 mg PO DAILY@0800 [facility] Last Admin: 01/28/20 09:08 Dose: 40 mg Documented by: Sodium Chloride () 10 - 40 ml IV UD PRN PRN Reason: SALINE FLUSH Last Admin: 01/28/20 09:16 Dose: 10 ml Documented by: Discharge Diet: Low fat/ Low Cholesterol Discharge Activity: Return to Normal Activity Weight Bearing Status: Weight bearing as tolerated Call your doctor if you observe: Fever of 101 or Higher, Shortness of breath, Fainting spells, Swelling in the ankles Home Medications: Medications to take at Discharge Aspirin [Aspirin, Baby] 81 mg PO DAILY@0800 10/04/14 Atorvastatin Calcium [Lipitor] 40 mg PO QHS 10/04/14 Clopidogrel Bisulfate [Plavix] 75 mg PO DAILY 10/04/14 Furosemide [Lasix] 40 mg PO BID 10/04/14 Multivitamins,Therapeutic [Multivitamin] 1 tab PO DAILY 10/04/14 Budesonide/Formoterol 160/4.5 [Symbicort 160/4.5 Mcg Inhaler (SP)] 2 puff INHALATION BID 02/24/15 Roflumilast [Daliresp] 500 mcg PO DAILY 02/24/15 Famotidine [Pepcid] 20 mg PO BID 08/01/15 bupropion HCl 100 mg tablet 100 mg PO BID 10/25/17 Albuterol Aerosols [Ventolin Aerosols] 2.5 mg INHALATION Q2H PRN PRN #1 box 11/08/17 albuterol sulfate 90 mcg/actuation aerosol inhaler 2 puff INHALATION Q2H PRN g 11/11/17 tiotropium bromide 18 mcg capsule with inhalation device 1 cap INHALATION DAILY 11/11/17 Cholecalciferol (VIT D3) [Vitamin D3] 1,000 unit PO DAILY tab 02/13/18 ipratropium bromide 0.02 % solution for inhalation 0.5 mg INHALATION Q4H ml 05/01/18 losartan 25 mg tablet 25 mg PO DAILY 09/14/18 Budesonide Aerosol [Pulmicort Respules] 0.5 mg INHALATION BID 10/14/18 Azelastine HCl 1 spray INTRANASAL BID PRN 07/24/19 Clotrimazole 10 mg MUCOUS MEMBRANE TID PRN 07/24/19 Ferrous Sulfate 325 mg PO DAILY 07/24/19 Oxygen, Home [Home Oxygen] 4 - 6 lpm NASAL CONT 07/24/19 Potassium Chloride [Klor-Con M20] 20 meq PO BID 07/24/19 metformin 500 mg tablet 250 mg PO DAILY tab 10/01/19 metformin 500 mg tablet 500 mg PO BREAKFAST tab 10/01/19 metoprolol tartrate 25 mg tablet 25 mg PO BID #180 tab 12/13/19 MethylPREDNISolone DosePak [Medrol DosePak] 4 mg PO UD #1 box 01/28/20 levoFLOXacin tablet [Levaquin tablet] 750 mg PO DAILY #3 tab 01/28/20 Following Prescrptions Were Given to Patient: levoFLOXacin tablet [Levaquin tablet] 750 mg PO DAILY #3 tab Transmission Status: Received by [facility] MethylPREDNISolone DosePak [Medrol DosePak] 4 mg PO UD #1 box Transmission Status: Received by [facility] Primary Care Physician: Kenia Matthew MD [Primary Care Provider] - Please follow up with your Primary Care Physician in: 1-2 weeks Please Follow Up With: Zac Mendez MD When: 1-2 weeks Patient Instructions: Care for COPD, Treatments for COPD Disposition: Home Minutes spent on discharge:: 45 Patient Condition:: Fair Medical Necessity - Tobacco Use Smoking Status: Former smoker Tobacco Use: Cigarettes - quit 3 years ago Meaningful Use Info Meaningful Use Diagnoses (Choose all that apply): None applicable Inpatient E&M: 85389 [facility]
[2020-01-28 10:31] LABS: Pathologist Review Reviewed
[2020-01-28 11:30] LABS: Bedside Glucose 92 mg/dL (70-110)
--- NOTE | 2020-01-29 14:11 | CASEMGMT ---
ERIK GUTIERREZ DC PHONE CALL DC DATE: 01.28.2020 DC DISPOSITION: Home DC DIAGNOSIS: Acute COPD exacerbation. COVID-19 negative LACE/STRATA: 09/11 F/U APPTS MADE PRIOR TO DC: yes PRESCRIPTIONS ACQUIRED BY PT: X Intro role of CM to patient via phone. Pt states I don't want to talk. ERIK GUTIERREZ thanked pt and he ended call. Shyam SORIANO RN ACM
== END 2020-01-28 13:54 | disposition home or self-care (01) | DRG 189 ==
LOC: ED 07:46 → ICU 08:13 → PCU 01-27 06:08
PROVIDERS: Emergency Medicine; Admitting Provider Student in an Organized Health Care Education/Training Program; Emergency Provider Emergency Medicine; PCP Internal Medicine; Visit Provider Student in an Organized Health Care Education/Training Program
DX: J96.21 Acute and chronic respiratory failure with hypoxia (principal); J44.1 Chronic obstructive pulmonary disease with (acute) exacerbation; N17.9 Acute kidney failure, unspecified; I50.22 Chronic systolic (congestive) heart failure; J96.22 Acute and chronic respiratory failure with hypercapnia; E78.5 Hyperlipidemia, unspecified; I25.10 Atherosclerotic heart disease of native coronary artery without angina pectoris; G47.33 Obstructive sleep apnea (adult) (pediatric); E11.9 Type 2 diabetes mellitus without complications; F41.9 Anxiety disorder, unspecified; I11.0 Hypertensive heart disease with heart failure; Z99.81 Dependence on supplemental oxygen; Z87.891 Personal history of nicotine dependence
CPT/HCPCS: 36415; 36600; 71045; 80048; 82803; 82962; 83605; 83880; 84484; 85025; 87040; 87070; 87077; 87205; 87633; 87635; 87641; 93005; 94002; 94003; 94640; 96365; 96375; 99285; J7030; J7040; A4216; U0004

== ENCOUNTER → 2020-07-17 15:27 | Outpatient (CLI) | payer MEDICARE, MEDICAID, SELFPAY ==
[2020-06-04 05:48] VITALS: BMI 32.3
== END ==
PROVIDERS: PCP Internal Medicine; Referring Provider Nurse Practitioner Acute Care; Visit Provider Nurse Practitioner Acute Care
DX: J44.1 Chronic obstructive pulmonary disease with (acute) exacerbation (principal)
CPT/HCPCS: 87070; 87077; 87186; 87205

== ENCOUNTER → 2020-07-24 09:52 | Outpatient (CLI) | payer MEDICARE, MEDICAID, SELFPAY ==
[2020-06-04 05:48] VITALS: BMI 32.3
--- NOTE | 2020-07-24 15:48 | PFTCOMP ---
COMPLETE PULMONARY FUNCTION TEST INTERPRETATION Brief HPI: Patient is a 59 year old male, currently under the care of myself, who presents to [facility] for complete pulmonary function tests secondary to diagnosis of COPD. Respiratory therapist reports good effort and reproducible results. Interpretation: Forced expiration spirometry shows a very severe large airways obstructive ventilatory defect with an FEV1 of 20% predicted. There is a significant bronchodilator response in FVC by strict ATS criteria. Spirograms are of good quality and plateau slowly, indicating slowly emptying areas of the lungs. The respiratory flow volume loop shows decreased expiratory flow rates at all lung volumes consistent with airway obstruction. Lung volumes by body plethysmography show an elevated total lung capacity at 10.07 L, 146% predicted. FRC and RV are elevated out of proportion. Lung volume measurements are consistent with hyperinflation and air-trapping. Diffusion capacity by carbon monoxide is decreased at 35% predicted. The airway resistance is elevated. Compared to previous pulmonary function tests from 06/09/2017, there is been significant worsening in air trapping, hyperinflation and DLCO. Impression: Partially reversible very severe large airways obstructive ventilatory defect resulting in air trapping with hyperinflation and a symmetric reduction diffusing capacity, in a pattern consistent with advanced COPD.
== END ==
PROVIDERS: PCP Internal Medicine; Referring Provider Internal Medicine Critical Care Medicine; Visit Provider Internal Medicine Critical Care Medicine
DX: J96.11 Chronic respiratory failure with hypoxia (principal); J96.12 Chronic respiratory failure with hypercapnia
CPT/HCPCS: 94060; 94726; 94729

== ENCOUNTER 2020-07-31 08:36 | Observation (INO) | payer MEDICARE, MEDICAID, SELFPAY ==
[2020-06-04 05:48] VITALS: BMI 32.3
[2020-07-31] VITALS (13 sets, daily range): BP systolic 90–141; BP diastolic 51–81; PULSE 58–99; RESP 16–27; TEMP 36.6–36.9; O2SAT 93–99; BMI 32.1; BMI 33.4; BMI 33.5
--- NOTE | 2020-07-31 08:58 | EKG12_ITS ---
Test Reason : SOB Blood Pressure : / mmHG Vent. Rate : 086 BPM Atrial Rate : 086 BPM P-R Int : 132 ms QRS Dur : 088 ms QT Int : 340 ms P-R-T Axes : 067 051 038 degrees QTc Int : 406 ms Normal sinus rhythm Low voltage QRS (Limb Leads) Confirmed by RUTH ANN ROTHMAN, TRENTON ([id number]), communications editor ANITA ALFARO ([id number]) on 08/04/2020 12:38:11 PM Referred By: Zac Mendez Confirmed By:TRENTON VALLECILLO MD
--- NOTE | 2020-07-31 09:01 | ED.VIS.GEN ---
History of Present Illness Chief Complaint: Shortness of Breath Narrative: Patient is a 59-year-old male who presents with shortness of breath. He does have a history of end-stage COPD. He is in the process pretesting to possibly be placed on the transplant list. He was scheduled for a 6-minute walking test today it sounds like this may have been PFTs. He was unable to complete this. He is on 10 mg of prednisone daily as well as 5 L oxygen by nasal cannula. He has had recent increased cough and sputum production. He states his chest is sore from coughing but otherwise has no pain. He is on last day of oral antibiotics was recently treated with Augmentin. No fevers. He does have some rhinorrhea. He denies any nausea vomiting or diarrhea. Past Medical History - Allergies and Home Meds Allergies/Adverse Reactions: Allergies diazepam [From Valium] Adverse Reaction (Verified 07/31/20 08:39) Vomiting Primary Care Physician: Kenia Matthew MD [Primary Care Provider] - Past Medical History: - - Coronary artery disease with stent, diabetes, hypertension, end-stage COPD Surgical History: - - Rotator cuff surgery Smoking Status: Former smoker - Family History Maternal Family History: Family History (Last Reviewed 06/04/20 @ 13:05 by Brenna Horne) Mother Diabetes Father Heart disease CVA (cerebral vascular accident) Brother Diabetes Asthma Family History: Reports: Clotting Disorder - Mother with history of PE following an ankle surgery Paternal Family History: Family History (Last Reviewed 06/04/20 @ 13:05 by Brenna Horne) Mother Diabetes Father Heart disease CVA (cerebral vascular accident) Brother Diabetes Asthma Family History: Reports: Heart Disease Review of Systems All systems negative except as indicated General: Denies: Fever Eyes: Denies: Visual changes - bilaterally ENT: Denies: Bilateral ear pain Cardiovascular: Reports: Chest pain Respiratory: Reports: Dyspnea, Cough, Sputum Gastrointestinal: Denies: Nausea, Vomiting, Diarrhea Musculoskeletal: Denies: Myalgias, Arthralgias Skin: Denies: Rash Neurological: Denies: Headache Hematologic: Denies: Easy bruising Allergy: Denies: Uticaria Physical Exam Vital Signs/Narrative: Vital Signs Temp Pulse Resp BP Pulse Ox 07/31/20 08:36 98 F 89 24 H 141/79 H 98 Inital Vital Signs reviewed: Yes General: Well nourished Head: Normocephalic Eyes: EOMI ENT: Moist mucous membranes Neck: Supple Cardiovascular: Regular rate, Regular rhythm Respiratory: Wheezing, Diminished Abdomen: Soft, Nontender Extremities: Nontender Skin: Normal color Neurological: Alert Psychological: Normal affect Diagnostic/Tx/Re-eval Impressions Chest X-Ray 07/31/20 10:15 IMPRESSION: Stable examination. Hyperinflation. Stable mild basilar scarring. Electronically Signed: Sanchez Blood, at 10:46 EDT , Service support , 07/31/20 10:15 Chest 1 View (Portable) [RAD] Stat Laboratory Results 07/31/20 07/31/20 07/31/20 09:15 09:25 09:25 WBC 14.6 H RBC 4.85 Hgb 12.1 L Hct 41.7 MCV 86.0 MCH 24.9 L MCHC 29.0 L RDW Std Deviation 46.3 H RDW Coeff of Asael 14.9 H Plt Count 397 MPV 8.7 Immature Gran % (Auto) 1.400 H Neut % (Auto) 67.0 Lymph % (Auto) 18.9 L [place] % (Auto) 10.1 H Eos % (Auto) 2.0 Baso % (Auto) 0.6 Absolute Neuts (auto) 9.8 H Absolute Lymphs (auto) 2.77 Nucleated RBC % 0 Sodium 141 Potassium 4.0 Chloride 103 Carbon Dioxide 36.0 H Anion Gap 2 L BUN 18 Creatinine 1.22 Estim Creat Clear Calc 68.58 Est GFR (MDRD) Af Amer 78 Est GFR (MDRD) Non-Af 64 BUN/Creatinine Ratio 14.8 Glucose 120 H Calcium 8.6 Troponin I < 0.015 COVID-19 (JAMAR) Not Detected - Medical Decision Making Labs are notable for white blood cell count 14.6. Chest x-ray shows no focal infiltrate. Covid testing is negative. EKG shows sinus rhythm at a rate of 86. Patient was given albuterol and Atrovent aerosols as well as IV Solu-Medrol. Although he is not requiring increased oxygen from his baseline he does have significant dyspnea on exertion I feel he could benefit from further IV steroids and observation. Patient discussed with the hospitalist who agrees to admit. ED Disposition - Plan for ED Patient: Disposition: [facility] Diagnosis: COPD exacerbation Referrals: Kenia Matthew MD [Primary Care Provider] -
--- NOTE | 2020-07-31 09:15 | ED.RN ---
ATTEMPTING TO GET MED LIST FROM DR HENRY'S OFFICE
[2020-07-31 09:33] LABS: Absolute Lymphocyte Count 2.77 X10^3/uL (0.83-4.51); Absolute Neutrophil Count 9.8 X10^3/uL (2.0-7.7); Basophil# 0.09 X10^3/uL; Basophil% 0.6 % (0-1); Eosinophil# 0.29 X10^3/uL; Hematocrit 41.7 % (40-54); Hemoglobin 12.1 g/dL (13.0-16.5); Lymphocyte # 2.77 X10^3/ul (4.0); Lymphocyte % 18.9 % (19-41); Mean Corpuscular Hgb 24.9 pg (27.0-32.0); Mean Platelet Vol. 8.7 fl (6.2-12.0); Monocyte# 1.48 X10^3/uL; Monocyte% 10.1 % (0-10); NRBC Flagged by Analyzer 0 % (0-5); Neutrophil # 9.79 X10^3/uL (2.7-7.7); Platelet Count 397 K/mm3 (150-450); RBC Distribution Width CV 14.9 % (11.6-14.6); RBC Distribution Width SD 46.3 fl (35.1-43.9); Red Blood Count 4.85 M/mm3 (4.6-6.2); White Blood Count 14.6 K/mm3 (4.4-11.0)
[2020-07-31 09:49] LABS: Anion Gap 2 (5-15); BUN 18 mg/dL (7-18); BUN/Creat Ratio 14.8 RATIO (10-20); Calcium,Total 8.6 mg/dL (8.5-10.1); Chloride 103 mmol/L (98-107); Creatinine, Serum 1.22 mg/dL (0.70-1.30); EST Glomerular Filtration Rate 64 mL/min (>60); Est Glom Filt Rate - Afr Amer 78 mL/min (>60); Estimated Creatinine Clearance 68.58 ml/min; Glucose 120 mg/dL (74-106); Sodium Level 141 mmol/L (136-145)
--- NOTE | 2020-07-31 10:15 | RAD_ITS ---
STUDY: X-RAY CHEST REASON FOR EXAM: Male, 59 years old. INCREASED SOB TECHNIQUE: Single AP portable view of the chest. COMPARISON: Comparison is made with prior examination dated 01/24/2020. FINDINGS: EKG electrodes are seen. There is hyperinflation of the lungs consistent with chronic obstructive lung disease (COPD). Stable mild increased linear markings at the lung bases suggestive of scarring. Focal linear scarring in the right upper lobe. There is no demonstrated pleural abnormality. There is mild cardiac enlargement. Normal mediastinum and kim. Normal visualized pulmonary arteries. Normal visualized aortic arch and descending thoracic aorta. Normal visualized thoracic spine. Normal visualized ribs, clavicles, and shoulders. Hiatal hernia. RAD/Chest 1 View (Portable) IMPRESSION: Stable examination. Hyperinflation. Stable mild basilar scarring. Electronically Signed: Sanchez Blood, at 10:46 EDT , Service support ,
[2020-07-31] MEDS: MethylPREDNISolone 125 MG/2 ML Vial IV (10:37)
--- NOTE | 2020-07-31 12:41 | HP.PCM_ITS ---
History of Present Illness Date of Admission: 07/31/20 Chief Complaint: shortness of breath The patient is a 59 year old M with a past medical history significant for chronic respiratory failure on 4 L of oxygen at home due to end stage COPD. Patient says he has been having worsening cough over the last 2 weeks which is productive of sputum. His blackener put him on p.o. Augmentin for 10-day course of which he has only 1 day left. Today, he came to the hospital for outpatient pulmonary function test. However, he was so short of breath that he couldn't get out of his car. He therefore had to ask for a wheelchair to get to the hospital. However, he was so short of breath that he asked to be brought to the ED. He says he is being worked up for the lung transplant program, that is why he was having the PFTs. He denied fever, chills, chest pain, palpitations, dizziness, nausea or vomiting. Review of systems otherwise negative. In the ED, vitals showed temp 98F, BP of 90/51, [place] of 79 and RR of 17. He was saturating at 99% on 4L of oxygen. Chemistry was unremarkable apart from Bicarb of 36, with negative initial troponin. CBC showed wbc of 14.6, with Hb of 12.1 and platelets of 397. CXR showed hyperinflation and stable mild basilar scarring. He is being admitted to be managed for acute on chronic COPD exacerbation. [] Past Medical History Past Medical History (Chronic Problems): Chronic Problems (Last Reviewed 06/04/20 @ 13:05 by Brenna Horne) Essential hypertension (Chronic) Tobacco abuse (Chronic) Stage 4 very severe COPD by GOLD classification (Chronic) FEV1 20% of predicted Type 2 diabetes mellitus (Chronic) Congestive heart failure (Chronic) MICHELLE (obstructive sleep apnea) (Chronic) Trilogy with 2 LPM oxygen bleed Anxiety (Chronic) Atherosclerotic heart disease of [place] coronary artery without angina pectoris (Chronic) LHC w/stenting to prox RCA 07/15 Chronic respiratory failure with hypoxia and hypercapnia (Chronic) COPD (chronic obstructive pulmonary disease) (Chronic) Hyperlipidemia (Chronic) Medical History: Medical History (Last Reviewed 06/04/20 @ 13:05 by Brenna Horne) Essential hypertension (Chronic) I10 Tobacco abuse (Chronic) Z72.0 Stage 4 very severe COPD by GOLD classification (Chronic) J44.9 FEV1 20% of predicted Type 2 diabetes mellitus (Chronic) E11.9 Congestive heart failure (Chronic) I50.9 MICHELLE (obstructive sleep apnea) (Chronic) G47.33 Trilogy with 2 LPM oxygen bleed Anxiety (Chronic) F41.9 Hyperlipidemia (Chronic) E78.5 Anxiety (Inactive) F41.9 CAD (coronary artery disease) (Inactive) I25.10 Coronary artery disease (Inactive) I25.10 Status post stent Allergies diazepam [From Valium] Adverse Reaction (Verified 07/31/20 08:39) Vomiting Home Medications: Ambulatory Orders Medication Instructions Recorded Aspirin [Aspirin, Baby] 81 mg PO DAILY@0800 10/04/14 Atorvastatin Calcium [Lipitor] 40 mg PO QHS 10/04/14 Clopidogrel Bisulfate [Plavix] 75 mg PO DAILY 10/04/14 Furosemide [Lasix] 40 mg PO BID 10/04/14 Multivitamins,Therapeutic 1 tab PO DAILY 10/04/14 [Multivitamin] Budesonide/Formoterol 160/4.5 2 puff INHALATION BID 02/24/15 [Symbicort 160/4.5 Mcg Inhaler (SP)] Roflumilast [Daliresp] 500 mcg PO DAILY 02/24/15 Famotidine [Pepcid] 20 mg PO BID 08/01/15 bupropion HCl 100 mg tablet 100 mg PO BID 10/25/17 Albuterol Aerosols [Ventolin 2.5 mg INHALATION Q2H PRN PRN #1 11/08/17 Aerosols] box albuterol sulfate 90 mcg/actuation 2 puff INHALATION Q2H PRN g 11/11/17 aerosol inhaler tiotropium bromide 18 mcg capsule 1 cap INHALATION DAILY 11/11/17 with inhalation device Cholecalciferol (VIT D3) [Vitamin 1,000 unit PO DAILY tab 02/13/18 D3] ipratropium bromide 0.02 % 0.5 mg INHALATION Q4H ml 05/01/18 solution for inhalation losartan 25 mg tablet 25 mg PO DAILY 09/14/18 Budesonide Aerosol [Pulmicort 0.5 mg INHALATION BID 10/14/18 Respules] Clotrimazole 10 mg MUCOUS MEMBRANE TID PRN 07/24/19 Ferrous Sulfate 325 mg PO DAILY 07/24/19 Oxygen, Home [Home Oxygen] 4 - 6 lpm NASAL CONT 07/24/19 Potassium Chloride [Klor-Con M20] 20 meq PO BID 07/24/19 metformin 500 mg tablet 250 mg PO DAILY tab 10/01/19 metformin 500 mg tablet 500 mg PO BREAKFAST tab 10/01/19 metoprolol tartrate 25 mg tablet 25 mg PO BID #180 tab 12/13/19 amoxicillin 875 mg-potassium 1 tab PO BID #20 tab 07/21/20 clavulanate 125 mg tablet prednisone 10 mg tablet 10 mg PO QDAY #100 tab 07/21/20 Surgical History: Surgical History (Last Reviewed 06/04/20 @ 13:05 by Brenna Horne) Presence of stent in coronary artery (Resolved) Onset Date: ~07/2006 Z95.5 [facility] w/stenting to prox RCA Surgical History: - - Rotator cuff surgery Psychiatric History: No pertinent psych hx Lives: With Family Smoking Status: Former smoker Alcohol: None Drugs: None - *Family History Maternal Family History: Family History (Last Reviewed 06/04/20 @ 13:05 by Brenna Horne) Mother Diabetes Father Heart disease CVA (cerebral vascular accident) Brother Diabetes Asthma History Items: Clotting Disorder - Mother with history of PE following an ankle surgery Paternal Family History: Family History (Last Reviewed 06/04/20 @ 13:05 by Brenna Horne) Mother Diabetes Father Heart disease CVA (cerebral vascular accident) Brother Diabetes Asthma History Items: Heart Disease Review of Systems Constitutional: Denies: Chills, Fever, Malaise, Weakness, Weight Change HEENT: Denies: Head Aches, Sinus Congestion, Sinus Drainage Cardiovascular: Denies: Chest Pain, Palpitations Respiratory: Reports: Cough, Shortness of Breath, Shortness of breath at rest, Shortness of breath upon exertion, Sputum production, Wheezing Gastrointestinal: Denies: Abdominal Pain, Nausea, Vomiting Genitourinary: Denies: Dysuria Musculoskeletal: Denies: Joint Pain, Joint Tenderness Skin: Denies: Rash, Wounds Neurological: Denies: Numbness, Tingling, Focal weakness Psychiatric: Denies: Anxiety, Depression, Homicidal Ideations, Suicidal Ideations Hematologic/ Lymphatic: Denies: Easy Bruising, Easy Bleeding VTE Information - Inpt Only VTE Present on Admission: No VTE Pharm Prophylaxis ordered?: Yes - Physical Exam Vitals/I&O's: Vital Signs Temp Pulse Resp BP Pulse Ox 98 F 79 17 90/51 L 99 07/31/20 09:15 07/31/20 10:37 07/31/20 10:37 07/31/20 10:37 07/31/20 10:37 Oxygen Flow Rate (L/min) 4 Oxygen Delivery Method Nasal Cannula Weight: 230 lb Body Mass Index (BMI) 32.1 General: Alert, Oriented x3, Cooperative, No apparent distress, - - morbid obesity HEENT: Atraumatic, PERRLA, EOMI, Normocephalic Oral: Dry Mucosa Neck: Supple, No JVD, Negative Carotid Bruits Lungs: - - lungs very tight, with expiratory wheezing. Cardiovascular: Regular rate, Regular Rhythm, Normal S1, Normal S2, No murmurs Abdomen: Bowel Sounds Present, Soft, Non Tender, Non-Distended, No Hepato- splenomegaly Extremities: No clubbing, No cyanosis, No edema, Capillary Refill Less than 3 Seconds Skin: No rashes, No breakdown Musculoskeletal: No Tenderness to Palpation of Joints or Extremities Lymphatic: No Cervical, Supraclavicular, or Inguinal Adenopathy Neurological: Cranial nerves II-XII grossly intact, Neuro grossly intact, Motor Exam 5/5 strength throughout Psych/Mental Status: Normal Affect, Appropriate, Alert and oriented to time, place, person, mood and affect Laboratory Results 07/31/20 09:15: COVID-19 (JAMAR) Not Detected 07/31/20 09:25: WBC 14.6 H, RBC 4.85, Hgb 12.1 L, Hct 41.7, MCV 86.0, MCH 24.9 L , MCHC 29.0 L, RDW Std Deviation 46.3 H, RDW Coeff of Asael 14.9 H, Plt Count 397, MPV 8.7, Immature Gran % (Auto) 1.400 H, Neut % (Auto) 67.0, Lymph % (Auto) 18.9 L, [place] % (Auto) 10.1 H, Eos % (Auto) 2.0, Baso % (Auto) 0.6, Absolute Neuts (auto) 9.8 H, Absolute Lymphs (auto) 2.77, Nucleated RBC % 0 07/31/20 09:25: Sodium 141, Potassium 4.0, Chloride 103, Carbon Dioxide 36.0 H, Anion Gap 2 L, BUN 18, Creatinine 1.22, Estim Creat Clear Calc 68.58, Est GFR (MDRD) Af Amer 78, Est GFR (MDRD) Non-Af 64, BUN/Creatinine Ratio 14.8, Glucose 120 H, Calcium 8.6, Troponin I < 0.015 Diagnostic Data Chest X-Ray 07/31/20 10:15 IMPRESSION: Stable examination. Hyperinflation. Stable mild basilar scarring. Electronically Signed: Sanchez Caitie, at 10:46 EDT , Service support , Assessment/Plan All Active Problems (Last Reviewed 06/04/20 @ 13:05 by Brenna Horne) Acute kidney injury (Acute) Acute and chronic respiratory failure with hypoxia (Acute) COPD exacerbation (Acute) Presence of stent in coronary artery (Resolved ~07/2006) 59 y/o admitted with a complaint of worsening shortness of breath. # Acute on chronic COPD exacerbation * admit to Med surg with telemetry * complete 10 day course of oral augmentin- today is day 9 * start on IV solumedrol 40mg q6hrs * breathing treatment with bronchodilators * # Chronic respiratory failure due to COPD exacerbation * on 4L of oxygen at baseline, which he is currently on * giving breathing treatments with bronchodilators * on symbicort inhaler * on roflumilast * #CAD s/p stents: on aspirin, statin and plavix # HFpEF: on lasix # Type 2 diabetes mellitus * on metformin. ISS. Accuchecks ACHS * DVT prophylaxis; lovenox Code status: full code * Patient counseled extensively about different types of CODE STATUS including full code, DNR CCA and DNR CCA. Patient elects to be full code. * Total [id number] time 16 minutes. OBSV E&M: 47861 Initial observation care L3 Procedures: 62840 Advncd Care Plan 30 Min
--- NOTE | 2020-07-31 13:33 | NURSING ---
325 COPD [facility]
[2020-07-31 15:03] LABS: BNP,B-Type NATRIURETIC PEPTIDE 15.2 pg/mL (0-100)
[2020-07-31] MEDS: Ipratropium/Albuterol Sulfate 3 ML AMPUL.NEB INHALATION ×2 (15:35→20:06)
[2020-07-31] MEDS: Insulin Lispro 100 UNIT/ML INSULN.PEN SQ ×2 (16:55→22:40)
[2020-07-31] MEDS: metFORMIN HCl 500 MG Tablet 250 MG PO (16:56)
[2020-07-31] MEDS: Losartan Potassium 25 MG Tablet PO (16:56)
[2020-07-31] MEDS: Furosemide 40 MG Tablet PO (16:56)
[2020-07-31] MEDS: 0.9% Saline Lock 10 ML Syringe IV (16:59)
[2020-07-31 17:25] LABS: Bedside Glucose 178 mg/dL (70-110)
[2020-07-31] MEDS: Budesonide Respules 0.5 MG/2 ML AMPUL.NEB. INHALATION (20:06)
[2020-07-31] MEDS: Metoprolol Tartrate 25 MG Tablet PO (22:39)
[2020-07-31] MEDS: Famotidine 20 MG Tablet PO (22:39)
[2020-07-31] MEDS: Atorvastatin Calcium 40 MG Tablet PO (22:39)
[2020-07-31] MEDS: Amox/Clavulanate 875 MG Tablet PO (22:39)
[2020-07-31] MEDS: buPROPion 100 MG Tablet PO (22:39)
[2020-08-01] VITALS (21 sets, daily range): BP systolic 100–124; BP diastolic 60–75; PULSE 69–92; RESP 16–20; TEMP 36.1–36.7; O2SAT 94–99
[2020-08-01] LABS: Bedside Glucose 164 mg/dL (70-110)
[2020-08-01] MEDS: Ipratropium/Albuterol Sulfate 3 ML AMPUL.NEB INHALATION ×4 (00:15→19:32)
[2020-08-01] MEDS: Albuterol 2.5 MG/3 ML VIAL.NEB. INHALATION ×2 (03:53→23:14)
[2020-08-01] MEDS: Ipratropium 0.5 MG/2.5 ML SOLUTION INHALATION (03:54)
[2020-08-01] MEDS: 0.9% Saline Lock 10 ML Syringe IV ×3 (06:49→22:30)
[2020-08-01 07:06] LABS: Bedside Glucose 143 mg/dL (70-110)
[2020-08-01] MEDS: Budesonide Respules 0.5 MG/2 ML AMPUL.NEB. INHALATION ×2 (07:15→19:32)
[2020-08-01 08:28] LABS: Absolute Lymphocyte Count 0.95 X10^3/uL (0.83-4.51); Absolute Neutrophil Count 11.8 X10^3/uL (2.0-7.7); Basophil# 0.02 X10^3/uL; Basophil% 0.1 % (0-1); Hemoglobin 12.2 g/dL (13.0-16.5); Lymphocyte # 0.95 X10^3/ul (4.0); Mean Corpuscular Hgb 24.4 pg (27.0-32.0); Mean Corpuscular Volume 84.2 fL (80-94); Mean Platelet Vol. 8.7 fl (6.2-12.0); Monocyte# 0.67 X10^3/uL; Monocyte% 4.9 % (0-10); NRBC Flagged by Analyzer 0 % (0-5); Neutrophil # 11.83 X10^3/uL (2.7-7.7); Neutrophil % 86.9 % (47-70); Platelet Count 411 K/mm3 (150-450); RBC Distribution Width CV 14.6 % (11.6-14.6); RBC Distribution Width SD 44.8 fl (35.1-43.9); Red Blood Count 4.99 M/mm3 (4.6-6.2); White Blood Count 13.6 K/mm3 (4.4-11.0)
[2020-08-01] MEDS: Aspirin 81 MG TAB.CHEW PO (08:45)
[2020-08-01 08:56] LABS: Anion Gap 2 (5-15); BUN 18 mg/dL (7-18); BUN/Creat Ratio 16.4 RATIO (10-20); Calcium,Total 9.1 mg/dL (8.5-10.1); Chloride 103 mmol/L (98-107); EST Glomerular Filtration Rate 72 mL/min (>60); Est Glom Filt Rate - Afr Amer 88 mL/min (>60); Estimated Creatinine Clearance 76.06 ml/min; Glucose 147 mg/dL (74-106); Potassium 4.4 mmol/L (3.5-5.1); Sodium Level 137 mmol/L (136-145)
[2020-08-01] MEDS: Amox/Clavulanate 875 MG Tablet PO ×2 (10:01→21:55)
[2020-08-01] MEDS: buPROPion 100 MG Tablet PO ×2 (10:02→21:57)
[2020-08-01] MEDS: Famotidine 20 MG Tablet PO ×2 (10:02→21:56)
[2020-08-01] MEDS: Furosemide 40 MG Tablet PO ×2 (10:02→17:52)
[2020-08-01] MEDS: Clopidogrel Bisulfate 75 MG Tablet PO (10:02)
[2020-08-01] MEDS: Metoprolol Tartrate 25 MG Tablet PO ×2 (10:02→21:56)
[2020-08-01] MEDS: Losartan Potassium 25 MG Tablet PO (10:06)
[2020-08-01] MEDS: Insulin Lispro 100 UNIT/ML INSULN.PEN SQ ×2 (11:41→22:02)
[2020-08-01 11:50] LABS: Bedside Glucose 164 mg/dL (70-110)
--- NOTE | 2020-08-01 12:51 | PN_ITS ---
Subjective: Patient seen and examined. He feels her shortness of breath is getting better but he is not at his baseline yet. He denies any palpitations but admits to chronic cough which is mildly productive. Review of symptoms otherwise negative. He is on his baseline 4 L of oxygen. Has remained hemodynamically stable. Review of symptoms otherwise negative. Vitals/I&O's: Vital Signs Temp Pulse Resp BP Pulse Ox 96.9 F L 80 18 104/62 96 08/01/20 08:46 08/01/20 10:02 08/01/20 08:46 08/01/20 08:46 08/01/20 08:46 Oxygen Flow Rate (L/min) 4 Oxygen Delivery Method Nasal Cannula Weight: 239 lb 14.4 oz Body Mass Index (BMI) 33.4 Intake and Output for Last 24 Hours 07/30/20 07/31/20 08/01/20 23:59 23:59 23:59 Intake Total 600 / 1100 1050 / 1050 Output Total 2300 / 2300 Balance 600 / 500 -1250 / -1250 General: Alert, Oriented x3, Cooperative, No apparent distress, - - morbid obesity HEENT: Atraumatic, PERRLA, EOMI, Normocephalic Oral: Dry Mucosa Neck: Supple, No JVD, Negative Carotid Bruits Lungs: - - lungs still sound tight, with mild expiratory wheezing Cardiovascular: Regular rate, Regular Rhythm, Normal S1, Normal S2, No murmurs Abdomen: Bowel Sounds Present, Soft, Non Tender, Non-Distended, No Hepato- splenomegaly Extremities: No clubbing, No cyanosis, No edema, Capillary Refill Less than 3 Seconds Skin: No rashes, No breakdown Musculoskeletal: No Tenderness to Palpation of Joints or Extremities Lymphatic: No Cervical, Supraclavicular, or Inguinal Adenopathy Neurological: Cranial nerves II-XII grossly intact, Neuro grossly intact, Motor Exam 5/5 strength throughout Psych/Mental Status: Normal Affect, Appropriate, Alert and oriented to time, place, person, mood and affect Laboratory Results 07/31/20 09:25: B-Natriuretic Peptide 15.2 07/31/20 16:54: POC Glucose 178 H 07/31/20 22:32: POC Glucose 164 H 08/01/20 06:47: POC Glucose 143 H 08/01/20 08:15: WBC 13.6 H, RBC 4.99, Hgb 12.2 L, Hct 42.0, MCV 84.2, MCH 24.4 L , MCHC 29.0 L, RDW Std Deviation 44.8 H, RDW Coeff of Asael 14.6, Plt Count 411, MPV 8.7, Immature Gran % (Auto) 1.100 H, Neut % (Auto) 86.9 H, Lymph % (Auto) 7.0 L, [place] % (Auto) 4.9, Eos % (Auto) 0.0, Baso % (Auto) 0.1, Absolute Neuts (auto) 11.8 H, Absolute Lymphs (auto) 0.95, Nucleated RBC % 0 08/01/20 08:15: Sodium 137, Potassium 4.4, Chloride 103, Carbon Dioxide 32.0, Anion Gap 2 L, BUN 18, Creatinine 1.10, Estim Creat Clear Calc 76.06, Est GFR (MDRD) Af Amer 88, Est GFR (MDRD) Non-Af 72, BUN/Creatinine Ratio 16.4, Glucose 147 H, Calcium 9.1 08/01/20 11:40: POC Glucose 164 H Diagnostic Data Chest X-Ray 07/31/20 10:15 IMPRESSION: Stable examination. Hyperinflation. Stable mild basilar scarring. Electronically Signed: Sanchez Blood, at 10:46 EDT , Service support , Current Medications Albuterol Sulfate (Albuterol 2.5 Mg/3 Ml Vial.Neb.) 2.5 mg INHALATION Q2H PRN PRN PRN Reason: dyspnea, wheezing Last Admin: 08/01/20 03:53 Dose: 2.5 mg Documented by: Albuterol/Ipratropium (Ipratropium/Albuterol Sulfate 3 Ml Ampul.Neb) 3 ml INHALATION Q6HWA.RT [facility] Last Admin: 08/01/20 07:15 Dose: 3 ml Documented by: Amoxicillin/Clavulanate Potassium (Amox/Clavulanate 875 Mg Tablet) 875 mg PO BID [facility] Last Admin: 08/01/20 10:01 Dose: 875 mg Documented by: Aspirin (Aspirin 81 Mg Tab.Chew) 81 mg PO DAILY@0800 [facility] Last Admin: 08/01/20 08:45 Dose: 81 mg Documented by: Atorvastatin Calcium (Atorvastatin Calcium 40 Mg Tablet) 40 mg PO QHS [facility] Last Admin: 07/31/20 22:39 Dose: 40 mg Documented by: Budesonide (Budesonide Respules 0.5 Mg/2 Ml Ampul.Neb.) 0.5 mg INHALATION Q12H.RT [facility] Last Admin: 08/01/20 07:15 Dose: 0.5 mg Documented by: Bupropion HCl (Bupropion 100 Mg Tablet) 100 mg PO BID [facility] Last Admin: 08/01/20 10:02 Dose: 100 mg Documented by: Clopidogrel Bisulfate (Clopidogrel Bisulfate 75 Mg Tablet) 75 mg PO DAILY [facility] Last Admin: 08/01/20 10:02 Dose: 75 mg Documented by: Clotrimazole (Clotrimazole 10 Mg [place]) 10 mg MUCOUS MEM TID PRN PRN PRN Reason: thrush Famotidine (Famotidine 20 Mg Tablet) 20 mg PO BID [facility] Last Admin: 08/01/20 10:02 Dose: 20 mg Documented by: Ferrous Sulfate (Ferrous Sulfate 325 Mg Tablet) 325 mg PO 1700 [facility] Furosemide (Furosemide 40 Mg Tablet) 40 mg PO 1000,1600 [facility] Last Admin: 08/01/20 10:02 Dose: 40 mg Documented by: Sodium Chloride () 250 mls @ 15 mls/hr IV .[id number] PRN PRN Reason: Saline Flush Sodium Chloride () 250 mls @ 15 mls/hr IV .[id number] PRN PRN Reason: Additional IVPB Infusion Insulin Human Lispro (Insulin Lispro 100 Unit/Ml Insuln.Pen) 0 unit SQ ACHS [facility]; Protocol Last Admin: 08/01/20 11:41 Dose: 2 units Documented by: Losartan Potassium (Losartan Potassium 25 Mg Tablet) 25 mg PO DAILY [facility] Last Admin: 08/01/20 10:06 Dose: 25 mg Documented by: Metformin HCl (Metformin Hcl 500 Mg Tablet) 250 mg PO SUPPER [facility] Last Admin: 07/31/20 16:56 Dose: 250 mg Documented by: Methylprednisolone (Methylprednisolone 40 Mg/Ml Vial) 40 mg IV Q8 [facility] Stop: 08/01/20 14:01 Last Admin: 08/01/20 06:49 Dose: 40 mg Documented by: Metoprolol Tartrate (Metoprolol Tartrate 25 Mg Tablet) 25 mg PO BID [facility] Last Admin: 08/01/20 10:02 Dose: 25 mg Documented by: Nitroglycerin (Nitroglycerin (Inpatient Use) 0.4 Mg Tab.Subl) 0.4 mg SUBLINGUAL Q5M PRN PRN Reason: CARDIAC/CHEST PAIN Ondansetron HCl (Ondansetron 4 Mg/2 Ml Vial) 4 mg IV Q8H PRN PRN PRN Reason: NAUSEA/VOMITING Potassium Chloride (Potassium Chloride 20 Meq Tablet) [facility] Last Admin: 08/01/20 08:45 Dose: 20 meq Documented by: Sodium Chloride (0.9% Saline Lock 10 Ml Syringe) 10 - 40 ml IV UD PRN PRN Reason: SALINE FLUSH Last Admin: 08/01/20 06:49 Dose: 10 ml Documented by: STROKE Vital Signs/Narrative: Vital Signs Pulse 08/01/20 10:02 80 08/01/20 10:00 79 Medical Necessity - Tobacco Use Smoking Status: Former smoker Tobacco Use: Cigarettes Assessment/Plan All Active Problems (Last Reviewed 06/04/20 @ 13:05 by Brenna Horne) Acute kidney injury (Acute) Acute and chronic respiratory failure with hypoxia (Acute) COPD exacerbation (Acute) Presence of stent in coronary artery (Resolved ~07/2006) # Acute on chronic COPD exacerbation * on IV solumedrol 40mg q8 * on breathing treatment with bronchodilators * just completed 10 day course of augmentin, so will hold off on any more an tibiotics for now * # Chronic respiratory failure due to COPD exacerbation * still on his baseline 4L of oxygen at baseline * giving breathing treatments with bronchodilators * on symbicort inhaler * on roflumilast * #CAD s/p stents: on aspirin, statin and plavix # HFpEF: on lasix # Type 2 diabetes mellitus * on metformin. ISS. Accuchecks ACHS * DVT prophylaxis; lovenox Code status: full code Inpatient E&M: 19001 Subs Hosp L2
[2020-08-01 17:21] LABS: Bedside Glucose 144 mg/dL (70-110)
[2020-08-01] MEDS: metFORMIN HCl 500 MG Tablet 250 MG PO (17:51)
[2020-08-01] MEDS: Ferrous Sulfate 325 MG Tablet PO (17:52)
[2020-08-01] MEDS: Atorvastatin Calcium 40 MG Tablet PO (21:56)
[2020-08-01 22:10] LABS: Bedside Glucose 180 mg/dL (70-110)
[2020-08-02] VITALS (23 sets, daily range): BP systolic 90–113; BP diastolic 52–69; PULSE 63–90; RESP 17–20; TEMP 36.3–36.8; O2SAT 93–99
[2020-08-02] MEDS: Ipratropium/Albuterol Sulfate 3 ML AMPUL.NEB INHALATION ×3 (03:15→18:50)
[2020-08-02 06:26] LABS: Absolute Lymphocyte Count 2.03 X10^3/uL (0.83-4.51); Absolute Neutrophil Count 11.9 X10^3/uL (2.0-7.7); Basophil# 0.05 X10^3/uL; Basophil% 0.3 % (0-1); Eosinophils% 0.6 % (0-5); Hematocrit 43.2 % (40-54); Hemoglobin 12.3 g/dL (13.0-16.5); Lymphocyte # 2.03 X10^3/ul (4.0); Lymphocyte % 12.6 % (19-41); Mean Corp Hgb Conc 28.5 g/dL (32-36); Mean Corpuscular Hgb 24.6 pg (27.0-32.0); Mean Corpuscular Volume 86.6 fL (80-94); Mean Platelet Vol. 9.1 fl (6.2-12.0); Monocyte# 1.78 X10^3/uL; Monocyte% 11.1 % (0-10); NRBC Flagged by Analyzer 0 % (0-5); Neutrophil # 11.92 X10^3/uL (2.7-7.7); Neutrophil % 74.3 % (47-70); POSITIVE DIFFERENTIAL YES; Platelet Count 439 K/mm3 (150-450); RBC Distribution Width CV 14.8 % (11.6-14.6); RBC Distribution Width SD 46.4 fl (35.1-43.9); Red Blood Count 4.99 M/mm3 (4.6-6.2); White Blood Count 16.1 K/mm3 (4.4-11.0)
[2020-08-02 06:29] LABS: Differential Indicated SCAN CRITERIA MET
[2020-08-02] MEDS: Budesonide Respules 0.5 MG/2 ML AMPUL.NEB. INHALATION ×2 (06:41→18:50)
[2020-08-02] MEDS: Albuterol 2.5 MG/3 ML VIAL.NEB. INHALATION ×3 (06:41→22:49)
[2020-08-02 06:43] LABS: Anion Gap 4 (5-15); BUN 21 mg/dL (7-18); BUN/Creat Ratio 20.2 RATIO (10-20); Calcium,Total 8.7 mg/dL (8.5-10.1); Chloride 101 mmol/L (98-107); Creatinine, Serum 1.04 mg/dL (0.70-1.30); EST Glomerular Filtration Rate 77 mL/min (>60); Est Glom Filt Rate - Afr Amer 93 mL/min (>60); Estimated Creatinine Clearance 80.45 ml/min; Glucose 106 mg/dL (74-106); Sodium Level 137 mmol/L (136-145)
[2020-08-02 07:05] LABS: Bedside Glucose 102 mg/dL (70-110)
[2020-08-02 07:39] LABS: Differential Comment SCANNED
[2020-08-02] MEDS: Aspirin 81 MG TAB.CHEW PO (07:47)
[2020-08-02] MEDS: Amox/Clavulanate 875 MG Tablet PO ×2 (10:21→21:40)
[2020-08-02] MEDS: Metoprolol Tartrate 25 MG Tablet PO (10:21)
[2020-08-02] MEDS: Furosemide 40 MG Tablet PO ×2 (10:21→17:03)
[2020-08-02] MEDS: Losartan Potassium 25 MG Tablet PO (10:21)
[2020-08-02] MEDS: Famotidine 20 MG Tablet PO ×2 (10:22→21:40)
[2020-08-02] MEDS: Clopidogrel Bisulfate 75 MG Tablet PO (10:22)
[2020-08-02] MEDS: buPROPion 100 MG Tablet PO ×2 (10:23→21:40)
[2020-08-02 11:10] LABS: Bedside Glucose 153 mg/dL (70-110)
[2020-08-02] MEDS: Insulin Lispro 100 UNIT/ML INSULN.PEN SQ (12:09)
--- NOTE | 2020-08-02 12:36 | PCM.PN.HOSP ---
Subjective: Patient seen and examined. He feels his shortness of breath is improving but he still not at his baseline. He still coughing but that is his baseline cough. Review of symptoms otherwise negative. He remains on 4 L of oxygen. He has remained hemodynamically stable. Vitals/I&O's: Vital Signs Temp Pulse Resp BP Pulse Ox 98.1 F 84 20 H 107/69 99 08/02/20 08:14 08/02/20 11:01 08/02/20 11:01 08/02/20 08:14 08/02/20 08:14 Oxygen Flow Rate (L/min) 4 Oxygen Delivery Method Nasal Cannula Weight: 239 lb 14.4 oz Body Mass Index (BMI) 33.4 Intake and Output for Last 24 Hours 07/31/20 08/01/20 08/02/20 23:59 23:59 23:59 Intake Total 600 / 1100 1750 / 1950 300 / 300 Output Total 2300 / 2675 1400 / 1400 Balance 600 / 500 -550 / -725 -1100 / -1100 General: Alert, Oriented x3, Cooperative, No apparent distress, - - morbid obesity HEENT: Atraumatic, PERRLA, EOMI, Normocephalic Oral: Dry Mucosa Neck: Supple, No JVD, Negative Carotid Bruits Lungs: - - lungs are improving, decreased breath sounds bibasally, minimal wheezing, no crackles. Cardiovascular: Regular rate, Regular Rhythm, Normal S1, Normal S2, No murmurs Abdomen: Bowel Sounds Present, Soft, Non Tender, Non-Distended, No Hepato-splenomegaly Extremities: No clubbing, No cyanosis, No edema, Capillary Refill Less than 3 Seconds Skin: No rashes, No breakdown Musculoskeletal: No Tenderness to Palpation of Joints or Extremities Lymphatic: No Cervical, Supraclavicular, or Inguinal Adenopathy Neurological: Cranial nerves II-XII grossly intact, Neuro grossly intact, Motor Exam 5/5 strength throughout Psych/Mental Status: Normal Affect, Appropriate, Alert and oriented to time, place, person, mood and affect Laboratory Results 08/01/20 17:11: POC Glucose 144 H 08/01/20 22:02: POC Glucose 180 H 08/02/20 06:00: WBC 16.1 H, RBC 4.99, Hgb 12.3 L, Hct 43.2, MCV 86.6, MCH 24.6 L, MCHC 28.5 L, RDW Std Deviation 46.4 H, RDW Coeff of Asael 14.8 H, Plt Count 439, MPV 9.1, Immature Gran % (Auto) 1.100 H, Neut % (Auto) 74.3 H, Lymph % (Auto) 12.6 L, [place] % (Auto) 11.1 H, Eos % (Auto) 0.6, Baso % (Auto) 0.3, Absolute Neuts (auto) 11.9 H, Absolute Lymphs (auto) 2.03, Nucleated RBC % 0, Differential Comment SCANNED, Diff Path Review February08/02/20 06:00: Sodium 137, Potassium 4.0, Chloride 101, Carbon Dioxide 32.0, Anion Gap 4 L, BUN 21 H, Creatinine 1.04, Estim Creat Clear Calc 80.45, Est GFR (MDRD) Af Amer 93, Est GFR (MDRD) Non-Af 77, BUN/Creatinine Ratio 20.2 H, Glucose 106, Calcium 8.7 08/02/20 06:58: POC Glucose 102 08/02/20 11:04: POC Glucose 153 H Current Medications Albuterol Sulfate (Albuterol 2.5 Mg/3 Ml Vial.Neb.) 2.5 mg INHALATION Q2H PRN PRN PRN Reason: dyspnea, wheezing Last Admin: 08/02/20 06:41 Dose: 2.5 mg Documented by: Albuterol/Ipratropium (Ipratropium/Albuterol Sulfate 3 Ml Ampul.Neb) 3 ml INHALATION Q6HWA.RT [facility] Last Admin: 08/02/20 10:50 Dose: 3 ml Documented by: Amoxicillin/Clavulanate Potassium (Amox/Clavulanate 875 Mg Tablet) 875 mg PO BID [facility] Last Admin: 08/02/20 10:21 Dose: 875 mg Documented by: Aspirin (Aspirin 81 Mg Tab.Chew) 81 mg PO DAILY@0800 [facility] Last Admin: 08/02/20 07:47 Dose: 81 mg Documented by: Atorvastatin Calcium (Atorvastatin Calcium 40 Mg Tablet) 40 mg PO QHS [facility] Last Admin: 08/01/20 21:56 Dose: 40 mg Documented by: Budesonide (Budesonide Respules 0.5 Mg/2 Ml Ampul.Neb.) 0.5 mg INHALATION Q12H.RT [facility] Last Admin: 08/02/20 06:41 Dose: 0.5 mg Documented by: Bupropion HCl (Bupropion 100 Mg Tablet) 100 mg PO BID [facility] Last Admin: 08/02/20 10:23 Dose: 100 mg Documented by: Clopidogrel Bisulfate (Clopidogrel Bisulfate 75 Mg Tablet) 75 mg PO DAILY [facility] Last Admin: 08/02/20 10:22 Dose: 75 mg Documented by: Clotrimazole (Clotrimazole 10 Mg [place]) 10 mg MUCOUS MEM TID PRN PRN PRN Reason: thrush Famotidine (Famotidine 20 Mg Tablet) 20 mg PO BID [facility] Last Admin: 08/02/20 10:22 Dose: 20 mg Documented by: Ferrous Sulfate (Ferrous Sulfate 325 Mg Tablet) 325 mg PO 1700 [facility] Last Admin: 08/01/20 17:52 Dose: 325 mg Documented by: Furosemide (Furosemide 40 Mg Tablet) 40 mg PO 1000,1600 [facility] Last Admin: 08/02/20 10:21 Dose: 40 mg Documented by: Sodium Chloride () 250 mls @ 15 mls/hr IV .[id number] PRN PRN Reason: Saline Flush Sodium Chloride () 250 mls @ 15 mls/hr IV .[id number] PRN PRN Reason: Additional IVPB Infusion Insulin Human Lispro (Insulin Lispro 100 Unit/Ml Insuln.Pen) 0 unit SQ ACHS [facility]; Protocol Last Admin: 08/02/20 12:09 Dose: 2 units Documented by: Losartan Potassium (Losartan Potassium 25 Mg Tablet) 25 mg PO DAILY [facility] Last Admin: 08/02/20 10:21 Dose: 25 mg Documented by: Metformin HCl (Metformin Hcl 500 Mg Tablet) 250 mg PO SUPPER [facility] Last Admin: 08/01/20 17:51 Dose: 250 mg Documented by: Metoprolol Tartrate (Metoprolol Tartrate 25 Mg Tablet) 25 mg PO BID [facility] Last Admin: 08/02/20 10:21 Dose: 25 mg Documented by: Nitroglycerin (Nitroglycerin (Inpatient Use) 0.4 Mg Tab.Subl) 0.4 mg SUBLINGUAL Q5M PRN PRN Reason: CARDIAC/CHEST PAIN Ondansetron HCl (Ondansetron 4 Mg/2 Ml Vial) 4 mg IV Q8H PRN PRN PRN Reason: NAUSEA/VOMITING Potassium Chloride (Potassium Chloride 20 Meq Tablet) 20 meq PO BIDCM [facility] Last Admin: 08/02/20 07:47 Dose: 20 meq Documented by: Sodium Chloride (0.9% Saline Lock 10 Ml Syringe) 10 - 40 ml IV UD PRN PRN Reason: SALINE FLUSH Last Admin: 08/01/20 22:30 Dose: 10 ml Documented by: STROKE Vital Signs/Narrative: Vital Signs Pulse Resp 08/02/20 11:01 84 20 H 08/02/20 10:21 72 Medical Necessity - Tobacco Use Smoking Status: Former smoker Tobacco Use: Cigarettes Assessment/Plan All Active Problems (Last Reviewed 06/04/20 @ 13:05 by Brenna Horne) Acute kidney injury (Acute) Acute and chronic respiratory failure with hypoxia (Acute) COPD exacerbation (Acute) Presence of stent in coronary artery (Resolved ~07/2006) # Acute on chronic COPD exacerbation on IV solumedrol 40mg q8 on breathing treatment with bronchodilators just completed 10 day course of augmentin, so will hold off on any more antibiotics for now he is beginning to feel better, and says lungs are opening up. still not fully at his baseline yet. # Chronic respiratory failure due to COPD exacerbation still on his baseline 4L of oxygen at baseline giving breathing treatments with bronchodilators on symbicort inhaler on roflumilast #CAD s/p stents: on aspirin, statin and plavix # HFpEF: on lasix # Type 2 diabetes mellitus on metformin. ISS. Accuchecks ACHS DVT prophylaxis; lovenox Code status: full code OBSV E&M: 85118 Subsequent observation care L2
[2020-08-02 16:30] LABS: Bedside Glucose 113 mg/dL (70-110)
[2020-08-02] MEDS: Ferrous Sulfate 325 MG Tablet PO (17:04)
[2020-08-02] MEDS: metFORMIN HCl 500 MG Tablet 250 MG PO (17:04)
[2020-08-02] MEDS: Atorvastatin Calcium 40 MG Tablet PO (21:40)
[2020-08-02] MEDS: 0.9% Saline Lock 10 ML Syringe IV (21:41)
[2020-08-03] VITALS (10 sets, daily range): BP systolic 105–125; BP diastolic 65–69; PULSE 68–96; RESP 16–20; TEMP 36.4–36.6; O2SAT 88–99
[2020-08-03] MEDS: Albuterol 2.5 MG/3 ML VIAL.NEB. INHALATION (03:03)
[2020-08-03 06:31] LABS: Bedside Glucose 112 mg/dL (70-110)
[2020-08-03 06:36] LABS: Bedside Glucose 94 mg/dL (70-110)
[2020-08-03] MEDS: Ipratropium/Albuterol Sulfate 3 ML AMPUL.NEB INHALATION ×2 (07:47→10:13)
[2020-08-03] MEDS: Budesonide Respules 0.5 MG/2 ML AMPUL.NEB. INHALATION (07:47)
[2020-08-03] MEDS: Aspirin 81 MG TAB.CHEW PO (07:59)
[2020-08-03] MEDS: Clopidogrel Bisulfate 75 MG Tablet PO (09:29)
[2020-08-03] MEDS: Metoprolol Tartrate 25 MG Tablet PO (09:29)
[2020-08-03] MEDS: Losartan Potassium 25 MG Tablet PO (09:29)
[2020-08-03] MEDS: buPROPion 100 MG Tablet PO (09:29)
[2020-08-03] MEDS: Amox/Clavulanate 875 MG Tablet PO (09:29)
[2020-08-03] MEDS: Famotidine 20 MG Tablet PO (09:29)
[2020-08-03] MEDS: Furosemide 40 MG Tablet PO (09:29)
--- NOTE | 2020-08-03 10:23 | DCINST_ITS ---
You will use the following diet at home:: Cardiac Your food should be the consistency of: Regular Your liquids should be the consistency of: Regular/Thin Discharge Activity: Return to Normal Activity Weight Bearing Status: Weight bearing as tolerated Call your doctor if you observe: Fever of 101 or Higher, Shortness of breath, Dizziness, Fainting spells, Swelling in the ankles Instructions: Treatments for COPD, ED COPD Flare Additional Instructions: use 4L of oxygen continuously Allergies/Adverse Reactions: Allergies diazepam [From Valium] Adverse Reaction (Verified 07/31/20 08:39) Vomiting Medications to take at Discharge Aspirin [Aspirin, Baby] 81 mg PO DAILY@0800 10/04/14 Atorvastatin Calcium [Lipitor] 40 mg PO QHS 10/04/14 Clopidogrel Bisulfate [Plavix] 75 mg PO DAILY 10/04/14 Furosemide [Lasix] 40 mg PO BID 10/04/14 Multivitamins,Therapeutic [Multivitamin] 1 tab PO DAILY 10/04/14 Budesonide/Formoterol 160/4.5 [Symbicort 160/4.5 Mcg Inhaler (SP)] 2 puff INHALATION BID 02/24/15 Roflumilast [Daliresp] 500 mcg PO DAILY 02/24/15 Famotidine [Pepcid] 20 mg PO BID 08/01/15 bupropion HCl 100 mg tablet 100 mg PO BID 10/25/17 Albuterol Aerosols [Ventolin Aerosols] 2.5 mg INHALATION Q2H PRN PRN #1 box 11/08/17 albuterol sulfate 90 mcg/actuation aerosol inhaler 2 puff INHALATION Q2H PRN g 11/11/17 tiotropium bromide 18 mcg capsule with inhalation device 1 cap INHALATION DAILY 11/11/17 Cholecalciferol (VIT D3) [Vitamin D3] 1,000 unit PO DAILY tab 02/13/18 ipratropium bromide 0.02 % solution for inhalation 0.5 mg INHALATION Q4H ml 05/01/18 losartan 25 mg tablet 25 mg PO 1400 09/14/18 Budesonide Aerosol [Pulmicort Respules] 0.5 mg INHALATION BID 10/14/18 Clotrimazole 10 mg MUCOUS MEMBRANE TID PRN 07/24/19 Ferrous Sulfate 325 mg PO DINNER 07/24/19 Oxygen, Home [Home Oxygen] 4 - 6 lpm NASAL CONT 07/24/19 Potassium Chloride [Klor-Con M20] 20 meq PO BID 07/24/19 metformin 500 mg tablet 250 mg PO QHS tab 10/01/19 metformin 500 mg tablet 500 mg PO BREAKFAST tab 10/01/19 metoprolol tartrate 25 mg tablet 25 mg PO BID #180 tab 12/13/19 prednisone 10 mg tablet 10 mg PO QDAY #100 tab 07/21/20 MethylPREDNISolone DosePak [Medrol DosePak] 4 mg PO UD #1 box 08/03/20 The following prescriptions were given: MethylPREDNISolone DosePak [Medrol DosePak] 4 mg PO UD #1 box Primary Care Physician: Kenia Matthew MD [Primary Care Provider] - Please follow up with your Primary Care Physician in: 1-2 weeks Test Results: Test results from this visit will be discussed in further detail at your follow- up appointment, if applicable. Please Follow Up With: Zac Mendez MD When: 1-2 weeks Proposed Discharge Date: 08/03/20
--- NOTE | 2020-08-03 11:11 | PCM.DC.SUM ---
Discharge Date and Diagnosis Date of Admission: 07/31/20 Date of Discharge: 08/03/20 - Primary Discharge Diagnosis Acute Problems: acute on chronic COPD exacerbation - Secondary Discharge Diagnosis Chronic Problems: Chronic Problems (Last Reviewed 06/04/20 @ 13:05 by Brenna Horne) Essential hypertension (Chronic) Tobacco abuse (Chronic) Stage 4 very severe COPD by GOLD classification (Chronic) FEV1 20% of predicted Type 2 diabetes mellitus (Chronic) Congestive heart failure (Chronic) MICHELLE (obstructive sleep apnea) (Chronic) Trilogy with 2 LPM oxygen bleed Anxiety (Chronic) Atherosclerotic heart disease of [place] coronary artery without angina pectoris (Chronic) LHC w/stenting to prox RCA 07/15 Chronic respiratory failure with hypoxia and hypercapnia (Chronic) COPD (chronic obstructive pulmonary disease) (Chronic) Hyperlipidemia (Chronic) Hospital Course and Treatment Imaging Results: Diagnostic Data Chest X-Ray 07/31/20 10:15 IMPRESSION: Stable examination. Hyperinflation. Stable mild basilar scarring. Electronically Signed: Sanchez Blood, at 10:46 EDT , Service support , Operations: None Procedures: None Summary of Care Provided: The patient is a 59 year old M with a past medical history significant for chronic respiratory failure on 4 L of oxygen at home due to end stage COPD. Patient says he has been having worsening cough over the last 2 weeks which is productive of sputum. His chief psychologist put him on p.o. Augmentin for 10-day course of which he has only 1 day left. Today, he came to the hospital for outpatient pulmonary function test. However, he was so short of breath that he couldn't get out of his car. He therefore had to ask for a wheelchair to get to the hospital. However, he was so short of breath that he asked to be brought to the ED. He says he is being worked up for the lung transplant program, that is why he was having the PFTs. He denied fever, chills, chest pain, palpitations, dizziness, nausea or vomiting. Review of systems otherwise negative. In the ED, vitals showed temp 98F, BP of 90/51, SC of 79 and RR of 17. He was saturating at 99% on 4L of oxygen. Chemistry was unremarkable apart from Bicarb of 36, with negative initial troponin. CBC showed wbc of 14.6, with Hb of 12.1 and platelets of 397. CXR showed hyperinflation and stable mild basilar scarring. He was admitted to be managed for acute on chronic COPD exacerbation. He was started on IV Solu-Medrol and breathing treatments with bronchodilators. He was also put on his baseline oxygen. Patient did not need more than his baseline oxygen throughout the admission. Patient slowly improved and felt better. Hospital course was uncomplicated. On day of discharge, walking pulse ox showed that he was saturating at 99% on his baseline 4 L of oxygen was ambulating. Patient was discharged on 08/03/2020 with a prescription for Medrol Dosepak. He is to continue using his 4 L of oxygen at home and using his bronchodilators and is to follow-up with his primary care doctor and pulmonology in 1 to 2 weeks. Patient seen and examined prior to discharge. He felt well and was eating breakfast. Review of systems otherwise negative. Labs and vitals reviewed. Medication reviewed and reconciled. O/E: Vital Signs Temp Pulse Resp BP Pulse Ox 97.9 F 91 16 125/69 H 99 08/03/20 09:31 08/03/20 10:13 08/03/20 10:13 08/03/20 09:31 08/03/20 09:33 General: Alert, Oriented x3, Cooperative, No apparent distress, - - morbid obesity HEENT: Atraumatic, PERRLA, EOMI, Normocephalic Oral: Dry Mucosa Neck: Supple, No JVD, Negative Carotid Bruits Lungs: - - lungs are improving, decreased breath sounds bibasally, minimal wheezing, no crackles. Cardiovascular: Regular rate, Regular Rhythm, Normal S1, Normal S2, No murmurs Abdomen: Bowel Sounds Present, Soft, Non Tender, Non-Distended, No Hepato-splenomegaly Extremities: No clubbing, No cyanosis, No edema, Capillary Refill Less than 3 Seconds Skin: No rashes, No breakdown Musculoskeletal: No Tenderness to Palpation of Joints or Extremities Lymphatic: No Cervical, Supraclavicular, or Inguinal Adenopathy Neurological: Cranial nerves II-XII grossly intact, Neuro grossly intact, Motor Exam 5/5 strength throughout Psych/Mental Status: Normal Affect, Appropriate, Alert and oriented to time, place, person, mood and affect Plan is for discharge home today. - Physical Exam Vitals/I&O's: Vital Signs Temp Pulse Resp BP Pulse Ox 97.9 F 91 16 125/69 H 99 08/03/20 09:31 08/03/20 10:13 08/03/20 10:13 08/03/20 09:31 08/03/20 09:33 Oxygen Flow Rate (L/min) [ 4 AMBULATION with Oxygen] Oxygen Flow Rate (L/min) 4 Oxygen Delivery Method Nasal Cannula Weight: 239 lb 14.4 oz Body Mass Index (BMI) 33.4 Intake and Output for Last 24 Hours 08/01/20 08/02/20 08/03/20 23:59 23:59 23:59 Intake Total 1750 / 1950 300 / 500 350 / 350 Output Total 2300 / 2675 1400 / 1800 1400 / 1400 Balance -550 / -725 -1100 / -1300 -1050 / -1050 Laboratory Results 08/02/20 16:24: POC Glucose 113 H 08/02/20 21:38: POC Glucose 112 H 08/03/20 06:30: POC Glucose 94 Current Medications Albuterol Sulfate (Albuterol 2.5 Mg/3 Ml Vial.Neb.) 2.5 mg INHALATION Q2H PRN PRN PRN Reason: dyspnea, wheezing Last Admin: 08/03/20 03:03 Dose: 2.5 mg Documented by: Albuterol/Ipratropium (Ipratropium/Albuterol Sulfate 3 Ml Ampul.Neb) 3 ml INHALATION Q6HWA.RT [facility] Last Admin: 08/03/20 10:13 Dose: 3 ml Documented by: Amoxicillin/Clavulanate Potassium (Amox/Clavulanate 875 Mg Tablet) 875 mg PO BID [facility] Last Admin: 08/03/20 09:29 Dose: 875 mg Documented by: Aspirin (Aspirin 81 Mg Tab.Chew) 81 mg PO DAILY@0800 [facility] Last Admin: 08/03/20 07:59 Dose: 81 mg Documented by: Atorvastatin Calcium (Atorvastatin Calcium 40 Mg Tablet) 40 mg PO QHS [facility] Last Admin: 08/02/20 21:40 Dose: 40 mg Documented by: Budesonide (Budesonide Respules 0.5 Mg/2 Ml Ampul.Neb.) 0.5 mg INHALATION Q12H.RT [facility] Last Admin: 08/03/20 07:47 Dose: 0.5 mg Documented by: Bupropion HCl (Bupropion 100 Mg Tablet) 100 mg PO BID [facility] Last Admin: 08/03/20 09:29 Dose: 100 mg Documented by: Clopidogrel Bisulfate (Clopidogrel Bisulfate 75 Mg Tablet) 75 mg PO DAILY [facility] Last Admin: 08/03/20 09:29 Dose: 75 mg Documented by: Clotrimazole (Clotrimazole 10 Mg [place]) 10 mg MUCOUS MEM TID PRN PRN PRN Reason: thrush Famotidine (Famotidine 20 Mg Tablet) 20 mg PO BID [facility] Last Admin: 08/03/20 09:29 Dose: 20 mg Documented by: Ferrous Sulfate (Ferrous Sulfate 325 Mg Tablet) 325 mg PO 1700 [facility] Last Admin: 08/02/20 17:04 Dose: 325 mg Documented by: Furosemide (Furosemide 40 Mg Tablet) 40 mg PO 1000,1600 [facility] Last Admin: 08/03/20 09:29 Dose: 40 mg Documented by: Sodium Chloride () 250 mls @ 15 mls/hr IV .[id number] PRN PRN Reason: Saline Flush Sodium Chloride () 250 mls @ 15 mls/hr IV .[id number] PRN PRN Reason: Additional IVPB Infusion Insulin Human Lispro (Insulin Lispro 100 Unit/Ml Insuln.Pen) 0 unit SQ ACHS [facility]; Protocol Last Admin: 08/03/20 06:30 Dose: Not Given Documented by: Losartan Potassium (Losartan Potassium 25 Mg Tablet) 25 mg PO DAILY [facility] Last Admin: 08/03/20 09:29 Dose: 25 mg Documented by: Metformin HCl (Metformin Hcl 500 Mg Tablet) 250 mg PO SUPPER [facility] Last Admin: 08/02/20 17:04 Dose: 250 mg Documented by: Metoprolol Tartrate (Metoprolol Tartrate 25 Mg Tablet) 25 mg PO BID [facility] Last Admin: 08/03/20 09:29 Dose: 25 mg Documented by: Nitroglycerin (Nitroglycerin (Inpatient Use) 0.4 Mg Tab.Subl) 0.4 mg SUBLINGUAL Q5M PRN PRN Reason: CARDIAC/CHEST PAIN Ondansetron HCl (Ondansetron 4 Mg/2 Ml Vial) 4 mg IV Q8H PRN PRN PRN Reason: NAUSEA/VOMITING Potassium Chloride (Potassium Chloride 20 Meq Tablet) 20 meq PO BIDCM [facility] Last Admin: 08/03/20 07:59 Dose: 20 meq Documented by: Sodium Chloride (0.9% Saline Lock 10 Ml Syringe) 10 - 40 ml IV UD PRN PRN Reason: SALINE FLUSH Last Admin: 08/02/20 21:41 Dose: 10 ml Documented by: Discharge Diet: Low fat/ Low Cholesterol Discharge Activity: Return to Normal Activity Weight Bearing Status: Weight bearing as tolerated Call your doctor if you observe: Fever of 101 or Higher, Shortness of breath, Dizziness, Fainting spells, Swelling in the ankles Home Medications: Medications to take at Discharge Aspirin [Aspirin, Baby] 81 mg PO DAILY@0800 10/04/14 Atorvastatin Calcium [Lipitor] 40 mg PO QHS 10/04/14 Clopidogrel Bisulfate [Plavix] 75 mg PO DAILY 10/04/14 Furosemide [Lasix] 40 mg PO BID 10/04/14 Multivitamins,Therapeutic [Multivitamin] 1 tab PO DAILY 10/04/14 Budesonide/Formoterol 160/4.5 [Symbicort 160/4.5 Mcg Inhaler (SP)] 2 puff INHALATION BID 02/24/15 Roflumilast [Daliresp] 500 mcg PO DAILY 02/24/15 Famotidine [Pepcid] 20 mg PO BID 08/01/15 bupropion HCl 100 mg tablet 100 mg PO BID 10/25/17 Albuterol Aerosols [Ventolin Aerosols] 2.5 mg INHALATION Q2H PRN PRN #1 box 11/08/17 albuterol sulfate 90 mcg/actuation aerosol inhaler 2 puff INHALATION Q2H PRN g 11/11/17 tiotropium bromide 18 mcg capsule with inhalation device 1 cap INHALATION DAILY 11/11/17 Cholecalciferol (VIT D3) [Vitamin D3] 1,000 unit PO DAILY tab 02/13/18 ipratropium bromide 0.02 % solution for inhalation 0.5 mg INHALATION Q4H ml 05/01/18 losartan 25 mg tablet 25 mg PO 1400 09/14/18 Budesonide Aerosol [Pulmicort Respules] 0.5 mg INHALATION BID 10/14/18 Clotrimazole 10 mg MUCOUS MEMBRANE TID PRN 07/24/19 Ferrous Sulfate 325 mg PO DINNER 07/24/19 Oxygen, Home [Home Oxygen] 4 - 6 lpm NASAL CONT 07/24/19 Potassium Chloride [Klor-Con M20] 20 meq PO BID 07/24/19 metformin 500 mg tablet 250 mg PO QHS tab 10/01/19 metformin 500 mg tablet 500 mg PO BREAKFAST tab 10/01/19 metoprolol tartrate 25 mg tablet 25 mg PO BID #180 tab 12/13/19 prednisone 10 mg tablet 10 mg PO QDAY #100 tab 07/21/20 MethylPREDNISolone DosePak [Medrol DosePak] 4 mg PO UD #1 box 08/03/20 Following Prescriptions Were Given to Patient: MethylPREDNISolone DosePak [Medrol DosePak] 4 mg PO UD #1 box Transmission Status: Received by [facility]30 Primary Care Physician: Kenia Matthew MD [Primary Care Provider] - Please follow up with your Primary Care Physician in: 1-2 weeks Please Follow Up With: Zac Mendez MD When: 1-2 weeks Patient Instructions: Treatments for COPD, ED COPD Flare Disposition: Home Minutes spent on discharge:: 40 Patient Condition:: Stable Medical Necessity - Tobacco Use Smoking Status: Former smoker Tobacco Use: Cigarettes Meaningful Use Info Meaningful Use Diagnoses (Choose all that apply): None applicable Inpatient E&M: 48117 Disch Hosp
[2020-08-04 14:00] LABS: Pathologist Review Reviewed
== END 2020-08-03 12:05 | disposition home or self-care (01) ==
LOC: ED 12:43 → MS3 12:52
PROVIDERS: Admitting Provider Student in an Organized Health Care Education/Training Program; Emergency Provider Emergency Medicine; PCP Internal Medicine; Visit Provider Student in an Organized Health Care Education/Training Program
DX: J44.1 Chronic obstructive pulmonary disease with (acute) exacerbation (principal); Z23 Encounter for immunization; I11.0 Hypertensive heart disease with heart failure; I25.10 Atherosclerotic heart disease of native coronary artery without angina pectoris; G47.33 Obstructive sleep apnea (adult) (pediatric); E11.9 Type 2 diabetes mellitus without complications; E78.5 Hyperlipidemia, unspecified; I50.32 Chronic diastolic (congestive) heart failure; F41.9 Anxiety disorder, unspecified; J96.22 Acute and chronic respiratory failure with hypercapnia; J96.21 Acute and chronic respiratory failure with hypoxia; Z95.5 Presence of coronary angioplasty implant and graft; Z87.891 Personal history of nicotine dependence; Z79.82 Long term (current) use of aspirin; Z79.899 Other long term (current) drug therapy; Z79.02 Long term (current) use of antithrombotics/antiplatelets
CPT/HCPCS: 36415; 71045; 80048; 82962; 83880; 84484; 85025; 87635; 93005; 94640; 94667; 94668; 96374; 96376; 99218; 99251; 99285; G0008; 90686; A4216; G0378; G0463; U0002

== ENCOUNTER 2020-09-28 05:20 | Inpatient (IN) | payer MEDICARE, MEDICAID, SELFPAY ==
[2020-08-28 09:51] VITALS: BMI 33.0
[2020-09-28] VITALS (34 sets, daily range): BP systolic 71–115; BP diastolic 47–74; PULSE 70–152; RESP 12–31; TEMP 36.7–37.1; O2SAT 91–98; BMI 32.5; BMI 31.7
--- NOTE | 2020-09-28 05:23 | EKG12_ITS ---
Test Reason : SOB Blood Pressure : / mmHG Vent. Rate : 143 BPM Atrial Rate : 143 BPM P-R Int : 124 ms QRS Dur : 078 ms QT Int : 268 ms P-R-T Axes : 065 066 -27 degrees QTc Int : 413 ms Sinus tachycardia Low voltage QRS (Limb Leads) Confirmed by RUTH ANN ROTHMAN, [place] ([id number]), editor department ANITA ALFARO ([id number]) on 10/01/2020 11:05:06 AM Referred By: MARIAM Confirmed By:TRENTON VALLECILLO MD
--- NOTE | 2020-09-28 05:23 | RAD_ITS ---
STUDY: X-RAY CHEST REASON FOR EXAM: Male, 59 years old. sob x 4 days -- hx of copd -- tested + covid TECHNIQUE: Frontal view COMPARISON: 07/31/2020 FINDINGS: There are new bilateral perihilar pulmonary infiltrates. The lungs are well expanded There is no demonstrated pleural abnormality. Normal size heart. Normal mediastinum and kim. Normal visualized pulmonary arteries. Normal visualized aortic arch and descending thoracic aorta. Normal visualized thoracic spine. Normal visualized ribs, clavicles, and shoulders. There is no demonstrated abnormality of the visualized soft tissue structures of the upper abdomen. RAD/Chest 1 View (Portable) IMPRESSION: There are new bilateral perihilar pulmonary infiltrates. The lungs are well expanded There is no demonstrated pleural abnormality. Normal size heart. Electronically Signed: Mario Alberto Sandoval MD at 6:16 EST , Service support ,
--- NOTE | 2020-09-28 05:28 | ED.VISSUMM ---
- ER Visit Summary Date of Service: 09/28/20 Chief Complaint: Shortness of breath History of Present Illness: The patient is a [address] Matthew and Dr. Mendez. He has a history of severe COPD and is on 4 L of home O2. He reports his shortness of breath began 3 to 4 days ago. He is not getting relief with his albuterol. It is severe. He has a nonproductive cough. He denies any fever or chills. He denies chest pain currently. He reports that he did have chest pain yesterday. He has been nauseated and had dry heaves. He has not been around anyone sick and states that he does not go out of the house. Physical Examination: Vitals: 98.1, 89/63, 150, 30, 95% on BiPAP. General: Well-nourished and well-developed. Head: Normocephalic atraumatic. Neck: Supple, no lymphadenopathy. No JVD. Nontender. Cardiovascular: Tachycardic regular rhythm. No murmurs. Respiratory: Severe respiratory distress. Prolonged expiratory phase with greatly decreased air movement. Abdominal: Soft, nontender, nondistended, normal bowel sounds. No guarding, rebound, or peritoneal signs. Back: Nontender. Extremities: Nontender, no edema. Skin: Normal color, no rash. Neurologic: Alert and oriented ?3. Cranial nerves II through XII are intact. Normal strength and sensation. Psych: Normal affect. Test Results: EKG is sinus tach [address] changes. COVID-19 rapid antigen is positive. CBC shows a white count of 15.1 with a hemoglobin of 12.9, segment neutrophils 89, and lymphocytes of 5. Chem-7 shows sodium 131, chloride 93, BUN 29, creatinine 2.01, glucose 183. Initial troponin 0 0.017. Lactic acid is 3.6. ABG shows a pH of 7.39 with a CO2 of 47.4 and a PO2 of 109.5. Chest x-ray shows increased interstitial markings bilaterally concerning for Covid. Emergency Department Course and Treatment: Patient had an IV placed. Was given Solu-Medrol IV. Is given albuterol and Atrovent aerosols. He was placed on BiPAP on arrival. He is resting more comfortably. Treatment Plan: Patient was discussed with Dr. Shen. He will be admitted to the hospital for further evaluation and treatment. Disposition: Admitted in serious condition. Impression: 1. COPD exacerbation. 2. Acute on chronic respiratory failure on BiPAP. 3. Critical care time 33 minutes. 4. COVID-19 infection. 5. Acute kidney injury. 6. Severe sepsis. This note was generated with [employer] dictation software. It may contain incorrect words, spelling, and punctuation that were not noted in review of the chart prior to signing ED Disposition - Plan for ED Patient: Referrals: Kenia Matthew MD [Primary Care Provider] -
[2020-09-28 05:40] LABS: Absolute Lymphocyte Count 0.72 X10^3/uL (0.83-4.51); Absolute Neutrophil Count 13.5 X10^3/uL (2.0-7.7); Basophil# 0.03 X10^3/uL; Basophil% 0.2 % (0-1); Eosinophil# 0.01 X10^3/uL; Eosinophils% 0.1 % (0-5); Hematocrit 42.2 % (40-54); Hemoglobin 12.9 g/dL (13.0-16.5); Lymphocyte # 0.72 X10^3/ul (4.0); Lymphocyte % 4.8 % (19-41); Mean Corp Hgb Conc 30.6 g/dL (32-36); Mean Corpuscular Volume 81.6 fL (80-94); Mean Platelet Vol. 9.8 fl (6.2-12.0); Monocyte# 0.75 X10^3/uL; NRBC Flagged by Analyzer 0 % (0-5); Neutrophil # 13.49 X10^3/uL (2.7-7.7); Platelet Count 412 K/mm3 (150-450); RBC Distribution Width CV 15.4 % (11.6-14.6); RBC Distribution Width SD 46.3 fl (35.1-43.9); Red Blood Count 5.17 M/mm3 (4.6-6.2); White Blood Count 15.1 K/mm3 (4.4-11.0)
[2020-09-28] MEDS: MethylPREDNISolone 125 MG/2 ML Vial IV (05:47)
[2020-09-28] MEDS: Ipratropium/Albuterol Sulfate 3 ML AMPUL.NEB INHALATION (05:52)
[2020-09-28 05:56] LABS: Allen Test Positive; Base Excess 4 mmol/L (-2 to +2); Bicarbonate 28.7 mmol/L (22-26); Blood Gas Specimen Type ART; FI02 50; O2 Delivery Device BiPAP; PO2 110 mmHG (75-100); SITE R Radial; SO2 98 % (95-99); Total Carbon Dioxide 30 mmol/L; pCO2 47.4 mmHg (35-45); pH 7.39 (7.35-7.45)
[2020-09-28 05:59] LABS: Anion Gap 8 (5-15); BUN 29 mg/dL (7-18); BUN/Creat Ratio 14.4 RATIO (10-20); Calcium,Total 9.2 mg/dL (8.5-10.1); Chloride 93 mmol/L (98-107); Creatinine, Serum 2.01 mg/dL (0.70-1.30); EST Glomerular Filtration Rate 36 mL/min (>60); Est Glom Filt Rate - Afr Amer 44 mL/min (>60); Estimated Creatinine Clearance 41.63 ml/min; Glucose 183 mg/dL (74-106); Potassium 4.6 mmol/L (3.5-5.1); Sodium Level 131 mmol/L (136-145)
[2020-09-28 06:07] LABS: Lactic Acid 3.6 mmol/L (0.4-1.9)
--- NOTE | 2020-09-28 06:37 | NURSING ---
ICU COVID, COPD DR SARKAR
--- NOTE | 2020-09-28 06:43 | NURSING ---
ICU 1
--- NOTE | 2020-09-28 06:48 | HP.PCM_ITS ---
Problem List (1) Essential hypertension Status: Chronic (2) Acute kidney injury Status: Acute (3) Acute and chronic respiratory failure with hypoxia Status: Acute (4) COPD exacerbation Status: Acute (5) Stage 4 very severe COPD by GOLD classification Status: Chronic Comment: FEV1 20% of predicted (6) Type 2 diabetes mellitus Status: Chronic Qualifiers: Diabetes mellitus senior living insulin use: without technician terminal and repeater use Diabetes mellitus complication status: with circulatory complication Diabetes mellitus complication detail: with other circulatory complications Qualified Code(s): E11.59 - Type 2 diabetes mellitus with other circulatory complications (7) Congestive heart failure Status: Chronic Qualifiers: Heart failure type: systolic Heart failure chronicity: chronic Qualified Code(s): I50.22 - Chronic systolic (congestive) heart failure (8) MICHELLE (obstructive sleep apnea) Status: Chronic Comment: Trilogy with 2 LPM oxygen bleed (9) Anxiety Status: Chronic (10) Presence of stent in coronary artery Status: Chronic Comment: LHC w/stenting to prox RCA (11) Atherosclerotic heart disease of [place] coronary artery without angina pectoris Status: Chronic Qualifiers: [place] vs. transplanted heart: [place] heart Qualified Code(s): I25.10 - Atherosclerotic heart disease of [place] coronary artery without angina pectoris Comment: LHC w/stenting to prox RCA 07/15 (12) Chronic respiratory failure with hypoxia and hypercapnia Status: Chronic (13) COPD (chronic obstructive pulmonary disease) Status: Chronic Qualifiers: COPD type: COPD with acute lower respiratory infection Qualified Code(s): J44.0 - Chronic obstructive pulmonary disease with (acute) lower respiratory infection (14) Hyperlipidemia Status: Chronic Qualifiers: Hyperlipidemia type: unspecified Qualified Code(s): E78.5 - Hyperlipidemia, unspecified (15) SARS (severe acute respiratory syndrome) Status: Acute (16) COVID-19 Status: Acute History of Present Illness Date of Admission: 09/28/20 Chief Complaint: sob The patient is a 58 year old M with a significant history of very severe COPD on 4 L of home oxygen and on diuretics and breathing treatments; morbid obesity; former tobacco abuse; diabetes mellitus; CAD status post stent who was brought to the ED for 1 week history of progressively shortness of breath. His shortness of breath is at rest and it increases markedly with exertion. He has a urinal by his side because he gets severely short of breath with exertion. He reported because of shortness of breath he fell. He reports a productive cough of clear sputum and at times greenish sputum. He denies fever. He reports a chronic chills that he attributes to a coldness in his trailer. En-route to the emergency department patient was placed on BiPAP by paramedics. Past Medical History Past Medical History (Chronic Problems): Chronic Problems (Last Reviewed 09/28/20 @ 07:[address] 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 classification (Chronic) FEV1 20% of predicted Type 2 diabetes mellitus (Chronic) Congestive heart failure (Chronic) MICHELLE (obstructive sleep apnea) (Chronic) Trilogy with 2 LPM oxygen bleed Anxiety (Chronic) Presence of stent in coronary artery (Chronic ~07/2006) [facility] w/stenting to prox RCA Atherosclerotic heart disease of [place] coronary artery without angina pectoris (Chronic) [facility] w/stenting to prox RCA 07/15 Chronic respiratory failure with hypoxia and hypercapnia (Chronic) COPD (chronic obstructive pulmonary disease) (Chronic) Hyperlipidemia (Chronic) Medical History: Medical History (Last Reviewed 09/28/20 @ 07:[address] Rock Shen MD) Essential hypertension (Chronic) I10 Tobacco abuse (Inactive) Z72.0 Stage 4 very severe COPD by GOLD classification (Chronic) J44.9 FEV1 20% of predicted Type 2 diabetes mellitus (Chronic) E11.9 Congestive heart failure (Chronic) I50.9 MICHELLE (obstructive sleep apnea) (Chronic) G47.33 Trilogy with 2 LPM oxygen bleed Anxiety (Chronic) F41.9 Hyperlipidemia (Chronic) E78.5 Anxiety (Inactive) F41.9 CAD (coronary artery disease) (Inactive) I25.10 Coronary artery disease (Inactive) I25.10 Status post stent Allergies diazepam [From Valium] Adverse Reaction (Verified 09/28/20 05:28) Vomiting Home Medications: Ambulatory Orders Medication Instructions Recorded Aspirin [Aspirin, Baby] 81 mg PO DAILY@0800 10/04/14 Atorvastatin Calcium [Lipitor] 40 mg PO QHS 10/04/14 Clopidogrel Bisulfate [Plavix] 75 mg PO DAILY 10/04/14 Furosemide [Lasix] 40 mg PO BID 10/04/14 Multivitamins,Therapeutic 1 tab PO DAILY 10/04/14 [Multivitamin] Budesonide/Formoterol 160/4.5 2 puff INHALATION BID 02/24/15 [Symbicort 160/4.5 Mcg Inhaler (SP)] Roflumilast [Daliresp] 500 mcg PO DAILY 02/24/15 Famotidine [Pepcid] 20 mg PO BID 08/01/15 bupropion HCl 100 mg tablet 100 mg PO BID 10/25/17 Albuterol Aerosols [Ventolin 2.5 mg INHALATION Q2H PRN PRN #1 11/08/17 Aerosols] box albuterol sulfate 90 mcg/actuation 2 puff INHALATION Q2H PRN g 11/11/17 aerosol inhaler tiotropium bromide 18 mcg capsule 1 cap INHALATION DAILY 11/11/17 with inhalation device Cholecalciferol (VIT D3) [Vitamin 1,000 unit PO DAILY tab 02/13/18 D3] ipratropium bromide 0.02 % 0.5 mg INHALATION Q4H ml 05/01/18 solution for inhalation losartan 25 mg tablet 25 mg PO 1400 09/14/18 Budesonide Aerosol [Pulmicort 0.5 mg INHALATION BID 10/14/18 Respules] Clotrimazole 10 mg MUCOUS MEMBRANE TID PRN 07/24/19 Ferrous Sulfate 325 mg PO DINNER 07/24/19 Oxygen, Home [Home Oxygen] 4 - 6 lpm NASAL CONT 07/24/19 Potassium Chloride [Klor-Con M20] 20 meq PO BID 07/24/19 metformin 500 mg tablet 250 mg PO QHS tab 10/01/19 metformin 500 mg tablet 500 mg PO BREAKFAST tab 10/01/19 metoprolol tartrate 25 mg tablet 25 mg PO BID #180 tab 12/13/19 prednisone 10 mg tablet 10 mg PO QDAY #100 tab 07/21/20 MethylPREDNISolone DosePak [Medrol 4 mg PO UD #1 box 08/03/20 DosePak] azithromycin 250 mg tablet 250 mg PO QMWF #12 tab 08/28/20 prednisone 10 mg tablet 10 mg PO QDAY #30 tab 09/26/20 Surgical History: Surgical History (Last Reviewed 09/28/20 @ 07:[address] Rock Shen MD) Presence of stent in coronary artery (Chronic) Onset Date: ~07/2006 Z95.5 C w/stenting to prox RCA Surgical History: - - Rotator cuff surgery Psychiatric History: No pertinent psych hx Smoking Status: Former smoker - *Family History Maternal Family History: Family History (Last Reviewed 09/28/20 @ 07:[address] Rock Shen MD) Mother Diabetes Father Heart disease CVA (cerebral vascular accident) Brother Diabetes Asthma History Items: Clotting Disorder - Mother with history of PE following an ankle surgery Paternal Family History: Family History (Last Reviewed 09/28/20 @ 07:[address] Rock Shen MD) Mother Diabetes Father Heart disease CVA (cerebral vascular accident) Brother Diabetes Asthma History Items: Heart Disease Review of Systems Constitutional: Reports: Anorexia, Malaise, Fatigue. Denies: Fever, Weight Change HEENT: Denies: Head Aches, Sinus Congestion, Sinus Drainage Cardiovascular: Denies: Chest Pain, Palpitations Respiratory: Reports: Cough, Shortness of breath at rest, Sputum production Gastrointestinal: Reports: Nausea. Denies: Abdominal Pain, Vomiting Genitourinary: Denies: Dysuria Musculoskeletal: Denies: Joint Pain, Joint Tenderness Skin: Denies: Rash, Wounds Neurological: Denies: Numbness, Tingling, Focal weakness Psychiatric: Denies: Anxiety, Depression, Homicidal Ideations, Suicidal Ideations Hematologic/ Lymphatic: Denies: Easy Bruising, Easy Bleeding VTE Information - Inpt Only VTE Present on Admission: No VTE Mechan Device Prophylaxis: None VTE Pharm Prophylaxis ordered?: Yes Patient Problems: Active and Suspected Problems (Last Reviewed 09/28/20 @ 07:[address] Rock Shen MD) SARS (severe acute respiratory syndrome) (Acute) COVID-19 (Acute) Acute kidney injury (Acute) Acute and chronic respiratory failure with hypoxia (Acute) COPD exacerbation (Acute) - Physical Exam Vitals/I&O's: Vital Signs Temp Pulse Resp BP Pulse Ox 98.6 F 130 H 26 H 97/67 94 09/28/20 06:27 09/28/20 06:27 09/28/20 06:27 09/28/20 06:27 09/28/20 06:27 Oxygen Delivery Method Bi-pap Weight: 105.8 kg Body Mass Index (BMI) 32.5 General: Alert, Oriented x3, Cooperative, - - On BiPAP HEENT: Atraumatic, PERRLA, EOMI, Normocephalic Neck: Supple, Trachea Midline Lungs: Rhonchi, Tachypneic Cardiovascular: Normal S1, Normal S2, No murmurs, Tachycardic Abdomen: Bowel Sounds Present, Soft, Non Tender Extremities: No edema, Capillary Refill Less than 3 Seconds Skin: No rashes, No breakdown Musculoskeletal: No Tenderness to Palpation of Joints or Extremities Neurological: Cranial nerves II-XII grossly intact Psych/Mental Status: Normal Affect, Appropriate Microbiology Past 72 Hours 09/28/20 05:35 Mucosa - Nose SARS-CoV-2 Antigen (Rapid) - Final SARS-CoV-2 (COVID 19) Laboratory Results 09/28/20 05:35: WBC 15.1 H, RBC 5.17, Hgb 12.9 L, Hct 42.2, MCV 81.6, MCH 25.0 L , MCHC 30.6 L, RDW Std Deviation 46.3 H, RDW Coeff of Asael 15.4 H, Plt Count 412, MPV 9.8, Immature Gran % (Auto) 0.900, Neut % (Auto) 89.0 H, Lymph % (Auto) 4.8 L, Foard % (Auto) 5.0, Eos % (Auto) 0.1, Baso % (Auto) 0.2, Absolute Neuts (auto) 13.5 H, Absolute Lymphs (auto) 0.72 L, Nucleated RBC % 0 09/28/20 05:35: Sodium 131 L, Potassium 4.6, Chloride 93 L, Carbon Dioxide 30.0, Anion Gap 8, BUN 29 H, Creatinine 2.01 H, Estim Creat Clear Calc 41.63, Est GFR (MDRD) Af Amer 44 L, Est GFR (MDRD) Non-Af 36 L, BUN/Creatinine Ratio 14.4, Glucose 183 H, Calcium 9.2, Troponin I 0.017 09/28/20 05:35: Lactic Acid 3.6 H* 09/28/20 05:46: Specimen Type ART, Sample Site R Radial, pH 7.39, Bicarbonate Actual 28.7 H, Total CO2 30, Base Excess 4 H, O2 Saturation 98, O2 % 50, ABG pCO2 47.4 H, ABG pO2 110 H, Paco Test Positive, O2 Delivery Device BiPAP Current Medications Dextrose (Dextrose 50%-Water 25 Gm/50 Ml Disp.Syrin) 0 gm IV X1 PRN; Protocol PRN Reason: Hypoglycemia Glucagon (Glucagon 1 Mg/Ml Syringe) 1 mg IM .X1 PRN PRN Reason: Hypoglycemia Insulin Human Lispro (Insulin Lispro 100 Unit/Ml Insuln.Pen) 0 unit SC Q6 CATRACHITA; Protocol Assessment/Plan All Active Problems (Last Reviewed 09/28/20 @ 07:[address] Rock Shen MD) SARS (severe acute respiratory syndrome) (Acute) COVID-19 (Acute) Acute kidney injury (Acute) Acute and chronic respiratory failure with hypoxia (Acute) COPD exacerbation (Acute) The patient is a 58 year old M with a significant history of very severe COPD on 4 L of home oxygen [id number] and trilogy at night; morbid obesity; former tobacco abuse; diabetes mellitus; CAD status post stent who was brought to the ED by the paramedics because of of 2-3-day history of progressively worsening shortness of breath found to have positive Covid and radiographic evidence of Covid. Acute on chronic respiratory failure secondary to SARS- COV 2 Positive coronavirus antigen test at emergency department. Impression of chest x-ray by radiologist: There are new bilateral perihilar pulmonary infiltrates. The lungs are well-expanded. There is no demonstrated pleural abnormality. Actual current chest x-ray image and previous chest x-ray was independently interpreted. I agree with radiologist interpretation. We will check D-dimer and procalcitonin. Check LFTs to stratify for remdesivir. Received Solu-Medrol at emergency department before a Covid results came. Will put patient on Decadron IV while on BiPAP. BiPAP continued. Tylenol for fever Mucinex ordered Continue patient on BiPAP and admit to intensive care unit. While on BiPAP keep n.p.o. Acute exacerbation of COPD Likely secondary to COVID-19 virus. Treatment as above. Continue home steroid inhalers. Albuterol as needed ordered. Scheduled DuoNeb ordered. On azithromy florina Tuesday. On Daliresp. Continue BiPAP at night. ANNETTE Creatinine presentation was 2.01. Baseline creatinine is around 1.0. BUN over creatinine is 14.4. Likely prerenal entry into intrinsic renal. Gentle IV hydration. Cautious use of IV fluids in the setting of Covid and home Lasix use. Avoid nephrotoxins. Losartan and Lasix held Trend BMP. Lactic acidosis Likely secondary to Covid and metformin use. Trend lactic acid. Diabetes mellitus On presentation his blood his blood glucose on BMP was elevated Hold Metformin especially as patient has lactic acidosis. Patient is n.p.o. whiles on BiPAP. Accu-Chek QA CHS with correction scale insulin ordered. Heart failure with preserved ejection fraction Echocardiogram on 07/21/2019: Showed ejection fraction of 65%. No evidence of diastolic dysfunction. Unable to estimate right ventricular systolic pressure due to inadequate jet. Home Lasix held secondary to ANNETTE Hypotension On presentation his blood pressure was low. Hold all home blood pressure medications. Trend blood pressure Chronic anemia Ferrous sulfate continued CAD status post stent Aspirin, Plavix, and Lipitor continued Losartan metoprolol held Depression Bupropion continued. GERD Pepcid continued DVT prophylaxis Subcutaneous Lovenox. Inpatient E&M: 97102 Init Hosp L3
--- NOTE | 2020-09-28 07:28 | PCM.PN.BLA ---
Progress Note Patient is a 59-year-old gentleman admitted with progressive shortness of breath and assessment of acute hypoxic respiratory failure secondary to COVID-19 pneumonia made admitted to the intensive care unit for subsequent management Patient seen and examined his initial assessment including history and physical diagnostic data and management orders reviewed will follow STROKE Vital Signs/Narrative: Vital Signs Temp Pulse Resp BP Pulse Ox 09/28/20 07:06 120 H 18 102/64 95 09/28/20 06:27 98.6 F 130 H 26 H 97/67 94 09/28/20 06:24 98.6 F 130 H 26 H 97/67 94 09/28/20 06:20 130 H 27 H 97/71 94 09/28/20 05:51 98.1 F 152 H 26 H 89/61 L 96 09/28/20 05:46 145 H 22 H 95 09/28/20 05:31 149 H 26 H 98 09/28/20 05:21 98.1 F 150 H 30 H 89/63 L 95
--- NOTE | 2020-09-28 08:47 | CON.PCM_ITS ---
Reason for Consult Date of Consultation: 09/28/20 Reason for Consultation: Acute on chronic hypoxemic respiratory failure History of Present Illness: The patient is a 59-year-old male, with a history as outlined below, who presented to the emergency department on September 28 with complaints of p rogressively worsening shortness of breath over the course of the last week. The patient does have a nonproductive cough, but states that it is no more severe than what is normal for him. He denies any recent sick contact exposure. He denies any loss of taste or smell. The patient does have a history of end- stage COPD and chronic hypoxemic respiratory failure with a baseline 4 L/min oxygen requirement, for which he follows with Dr. Mendez in the pulmonary medicine clinic. The patient is on a triple therapy inhaler regimen at his baseline. On presentation to the emergency department, the patient was noted to be tachycardic, tachypneic and hypoxemic. Laboratory evaluation revealed an elevated white blood cell count of 15,000. Chemistry profile was notable for a creatinine of 2.01. Lactate was elevated to 3.6. Troponin was negative. Chest x-ray revealed bilateral perihilar infiltrates. Rapid coronavirus antigen testing was positive. The patient was placed on BiPAP therapy. Arterial blood gas obtained on BiPAP revealed a pH of 7.39 with a corresponding PCO2 of 48 and PO2 of 110. The patient was subsequently transferred to the medical intensive care unit for further management. Past Medical History Past Medical History (Chronic Problems): Chronic Problems (Last Reviewed 09/28/20 @ 07:[address] 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 classification (Chronic) FEV1 20% of predicted Type 2 diabetes mellitus (Chronic) Congestive heart failure (Chronic) MICHELLE (obstructive sleep apnea) (Chronic) Trilogy with 2 LPM oxygen bleed Anxiety (Chronic) Presence of stent in coronary artery (Chronic ~07/2006) [facility] w/stenting to prox RCA Atherosclerotic heart disease of [place] coronary artery without angina pectoris (Chronic) [facility] w/stenting to prox RCA 07/15 Chronic respiratory failure with hypoxia and hypercapnia (Chronic) COPD (chronic obstructive pulmonary disease) (Chronic) Hyperlipidemia (Chronic) Medical History: Medical History (Last Reviewed 09/28/20 @ 07:[address] Rock Shen MD) Essential hypertension (Chronic) I10 Tobacco abuse (Inactive) Z72.0 Stage 4 very severe COPD by GOLD classification (Chronic) J44.9 FEV1 20% of predicted Type 2 diabetes mellitus (Chronic) E11.9 Congestive heart failure (Chronic) I50.9 MICHELLE (obstructive sleep apnea) (Chronic) G47.33 Trilogy with 2 LPM oxygen bleed Anxiety (Chronic) F41.9 Hyperlipidemia (Chronic) E78.5 Anxiety (Inactive) F41.9 CAD (coronary artery disease) (Inactive) I25.10 Coronary artery disease (Inactive) I25.10 Status post stent Allergies diazepam [From Valium] Adverse Reaction (Verified 09/28/20 05:28) Vomiting Home Medications: Ambulatory Orders Medication Instructions Recorded Aspirin [Aspirin, Baby] 81 mg PO DAILY@0800 10/04/14 Atorvastatin Calcium [Lipitor] 40 mg PO QHS 10/04/14 Clopidogrel Bisulfate [Plavix] 75 mg PO DAILY 10/04/14 Furosemide [Lasix] 40 mg PO BID 10/04/14 Multivitamins,Therapeutic 1 tab PO DAILY 10/04/14 [Multivitamin] Budesonide/Formoterol 160/4.5 2 puff INHALATION BID 02/24/15 [Symbicort 160/4.5 Mcg Inhaler (SP)] Roflumilast [Daliresp] 500 mcg PO DAILY 02/24/15 Famotidine [Pepcid] 20 mg PO BID 08/01/15 bupropion HCl 100 mg tablet 100 mg PO BID 10/25/17 Albuterol Aerosols [Ventolin 2.5 mg INHALATION Q2H PRN PRN #1 11/08/17 Aerosols] box albuterol sulfate 90 mcg/actuation 2 puff INHALATION Q2H PRN g 11/11/17 aerosol inhaler tiotropium bromide 18 mcg capsule 1 cap INHALATION DAILY 11/11/17 with inhalation device Cholecalciferol (VIT D3) [Vitamin 1,000 unit PO DAILY tab 02/13/18 D3] ipratropium bromide 0.02 % 0.5 mg INHALATION Q4H ml 05/01/18 solution for inhalation losartan 25 mg tablet 25 mg PO 1400 09/14/18 Budesonide Aerosol [Pulmicort 0.5 mg INHALATION BID 10/14/18 Respules] Clotrimazole 10 mg MUCOUS MEMBRANE TID PRN 07/24/19 Ferrous Sulfate 325 mg PO DINNER 07/24/19 Oxygen, Home [Home Oxygen] 4 - 6 lpm NASAL CONT 07/24/19 Potassium Chloride [Klor-Con M20] 20 meq PO BID 07/24/19 metformin 500 mg tablet 250 mg PO QHS tab 10/01/19 metformin 500 mg tablet 500 mg PO BREAKFAST tab 10/01/19 metoprolol tartrate 25 mg tablet 25 mg PO BID #180 tab 12/13/19 prednisone 10 mg tablet 10 mg PO QDAY #100 tab 07/21/20 MethylPREDNISolone DosePak [Medrol 4 mg PO UD #1 box 08/03/20 DosePak] azithromycin 250 mg tablet 250 mg PO QMWF #12 tab 08/28/20 prednisone 10 mg tablet 10 mg PO QDAY #30 tab 09/26/20 Surgical History: Surgical History (Last Reviewed 09/28/20 @ 07:[address] Rock Shen MD) Presence of stent in coronary artery (Chronic) Onset Date: ~07/2006 Z95.5 [facility] w/stenting to prox RCA Surgical History: - - Rotator cuff surgery Psychiatric History: No pertinent psych hx Smoking Status: Former smoker - *Family History Maternal Family History: Family History (Last Reviewed 09/28/20 @ 07:[address] Rock Shen MD) Mother Diabetes Father Heart disease CVA (cerebral vascular accident) Brother Diabetes Asthma History Items: Clotting Disorder - Mother with history of PE following an ankle surgery Paternal Family History: Family History (Last Reviewed 09/28/20 @ 07:[address] Rock Shen MD) Mother Diabetes Father Heart disease CVA (cerebral vascular accident) Brother Diabetes Asthma History Items: Heart Disease Review of Systems Constitutional: Denies: Chills, Fever Eyes: Denies: Blurred vision, Double vision HEENT: Denies: Head Aches, Sinus Congestion, Sinus Drainage Cardiovascular: Denies: Chest Pain, Palpitations Respiratory: Reports: Cough, Shortness of Breath Gastrointestinal: Denies: Abdominal Pain, Nausea, Vomiting Genitourinary: Denies: Dysuria Musculoskeletal: Denies: Joint Pain, Joint Tenderness Skin: Denies: Rash, Wounds Neurological: Denies: Numbness, Tingling, Focal weakness Psychiatric: Denies: Anxiety, Depression, Homicidal Ideations, Suicidal I deations Hematologic/ Lymphatic: Denies: Easy Bruising, Easy Bleeding Patient Problems: Active and Suspected Problems (Last Reviewed 09/28/20 @ 07:[address] Rock Shen MD) SARS (severe acute respiratory syndrome) (Acute) COVID-19 (Acute) Acute kidney injury (Acute) Acute and chronic respiratory failure with hypoxia (Acute) COPD exacerbation (Acute) Objective: The patient's most recent lab work, culture data and imaging studies have all been personally reviewed. Surface echocardiogram from July 2019 revealed normal LV size and thickness with an ejection fraction of 65%. Right ventricular systolic pressure was unable to be estimated. - Physical Exam Vitals/I&O's: Vital Signs Temp Pulse Resp BP Pulse Ox 98.6 F 120 H 18 102/64 95 09/28/20 06:27 09/28/20 07:06 09/28/20 07:06 09/28/20 07:06 09/28/20 07:06 Oxygen Delivery Method Bi-pap Weight: 233 lb 3.985 oz Body Mass Index (BMI) 32.5 General: Alert, Cooperative, No apparent distress, - - BiPAP mask currently in place. HEENT: Atraumatic, Normocephalic Oral: No Gingival or Mucosal Lesions/ Ulcerations Neck: Supple, No Nodes, Trachea Midline Lungs: - - Globally diminished air movement bilaterally. No conversational dyspnea or accessory muscle use. Cardiovascular: Normal S1, Normal S2, Tachycardic Abdomen: Bowel Sounds Present, Soft, Non Tender, Obese Extremities: No clubbing, No cyanosis, No edema Skin: No breakdown Musculoskeletal: No Muscle Wasting Lymphatic: No Cervical, Supraclavicular, or Inguinal Adenopathy Neurological: Cranial nerves II-XII grossly intact, Neuro grossly intact Psych/Mental Status: Normal Affect, Appropriate Labs (Last 48 Hours) 09/28/20 09/28/20 09/28/20 05:35 05:35 05:35 WBC 15.1 H RBC 5.17 Hgb 12.9 L Hct 42.2 MCV 81.6 MCH 25.0 L MCHC 30.6 L RDW Std Deviation 46.3 H RDW Coeff of Asael 15.4 H Plt Count 412 MPV 9.8 Immature Gran % (Auto) 0.900 Neut % (Auto) 89.0 H Lymph % (Auto) 4.8 L Nance % (Auto) 5.0 Eos % (Auto) 0.1 Baso % (Auto) 0.2 Absolute Neuts (auto) 13.5 H Absolute Lymphs (auto) 0.72 L Nucleated RBC % 0 D-Dimer Quant (PE/DVT) Specimen Type Sample Site pH Bicarbonate Actual Total CO2 Base Excess O2 Saturation O2 % ABG pCO2 ABG pO2 Paco Test O2 Delivery Device Sodium 131 L Potassium 4.6 Chloride 93 L Carbon Dioxide 30.0 Anion Gap 8 BUN 29 H Creatinine 2.01 H Estim Creat Clear Calc 41.63 Est GFR (MDRD) Af Amer 44 L Est GFR (MDRD) Non-Af 36 L BUN/Creatinine Ratio 14.4 Glucose 183 H Lactic Acid 3.6 H* Calcium 9.2 Total Bilirubin Direct Bilirubin AST ALT Alkaline Phosphatase Troponin I 0.017 Total Protein Albumin Procalcitonin 09/28/20 09/28/20 09/28/20 05:35 05:46 08:38 WBC RBC Hgb Hct MCV MCH MCHC RDW Std Deviation RDW Coeff of Asael Plt Count MPV Immature Gran % (Auto) Neut % (Auto) Lymph % (Auto) Nance % (Auto) Eos % (Auto) Baso % (Auto) Absolute Neuts (auto) Absolute Lymphs (auto) Nucleated RBC % D-Dimer Quant (PE/DVT) Pending Specimen Type ART Sample Site R Radial pH 7.39 Bicarbonate Actual 28.7 H Total CO2 30 Base Excess 4 H O2 Saturation 98 O2 % 50 ABG pCO2 47.4 H ABG pO2 110 H Paco Test Positive O2 Delivery Device BiPAP Sodium Potassium Chloride Carbon Dioxide Anion Gap BUN Creatinine Estim Creat Clear Calc Est GFR (MDRD) Af Amer Est GFR (MDRD) Non-Af BUN/Creatinine Ratio Glucose Lactic Acid Calcium Total Bilirubin Pending Direct Bilirubin Pending AST Pending ALT Pending Alkaline Phosphatase Pending Troponin I Total Protein Pending Albumin Pending Procalcitonin 09/28/20 08:38 WBC RBC Hgb Hct MCV MCH MCHC RDW Std Deviation RDW Coeff of Asael Plt Count MPV Immature Gran % (Auto) Neut % (Auto) Lymph % (Auto) Nance % (Auto) Eos % (Auto) Baso % (Auto) Absolute Neuts (auto) Absolute Lymphs (auto) Nucleated RBC % D-Dimer Quant (PE/DVT) Specimen Type Sample Site pH Bicarbonate Actual Total CO2 Base Excess O2 Saturation O2 % ABG pCO2 ABG pO2 Paco Test O2 Delivery Device Sodium Potassium Chloride Carbon Dioxide Anion Gap BUN Creatinine Estim Creat Clear Calc Est GFR (MDRD) Af Amer Est GFR (MDRD) Non-Af BUN/Creatinine Ratio Glucose Lactic Acid Calcium Total Bilirubin Direct Bilirubin AST ALT Alkaline Phosphatase Troponin I Total Protein Albumin Procalcitonin Pending Microbiology 09/28/20 05:35 Mucosa - Nose SARS-CoV-2 Antigen (Rapid) - Final SARS-CoV-2 (COVID 19) Clinical Impression(s) from Imaging Studies Chest X-Ray 09/28/20 05:23 IMPRESSION: There are new bilateral perihilar pulmonary infiltrates. The lungs are well expanded There is no demonstrated pleural abnormality. Normal size heart. Electronically Signed: Mario Alberto Sandoval MD at 6:16 EST , Service support , Current Medications Acetaminophen (Acetaminophen 325 Mg Tablet) 650 mg PO Q6H PRN PRN PRN Reason: Pain Score 1-10/Temp > 100.7 F Albuterol Sulfate (Albuterol 2.5 Mg/3 Ml Vial.Neb.) 2.5 mg INHALATION Q2H PRN PRN PRN Reason: SOB/Wheezing Albuterol/Ipratropium (Ipratropium/Albuterol Sulfate 3 Ml Ampul.Neb) 3 ml INHALATION Q4HWA.RT [facility] Aspirin (Aspirin 81 Mg Tab.Chew) 81 mg PO DAILY@0800 [facility] Atorvastatin Calcium (Atorvastatin Calcium 40 Mg Tablet) 40 mg PO DINNER [facility] Azithromycin (Azithromycin 250 Mg Tablet) 250 mg PO QMWF [facility] Budesonide (Budesonide Respules 0.5 Mg/2 Ml Ampul.Neb.) 0.5 mg INHALATION BID [place] Bupropion HCl (Bupropion 100 Mg Tablet) 100 mg PO BID [facility] Cholecalciferol (Cholecalciferol (Vit D3) 1,000 Unit (25mcg)) 1,000 unit PO DAILY [place] Clopidogrel Bisulfate (Clopidogrel Bisulfate 75 Mg Tablet) 75 mg PO DAILY [place] Clotrimazole (Clotrimazole 10 Mg Sharita) 10 mg MUCOUS MEM TID PRN PRN Reason: thrush Dexamethasone Sodium Phosphate (Dexamethasone 10 Mg/Ml Vial) 6 mg IV DAILY [facility] Dextrose (Dextrose 50%-Water 25 Gm/50 Ml Disp.Syrin) 0 gm IV X1 PRN; Protocol PRN Reason: Hypoglycemia Enoxaparin Sodium (Enoxaparin 30 Mg/0.3 Ml Syringe) 30 mg SC BID [facility] Famotidine (Famotidine 20 Mg Tablet) 20 mg PO DAILY [facility] Ferrous Sulfate (Ferrous Sulfate 325 Mg Tablet) 325 mg PO DINNER [facility] Glucagon (Glucagon 1 Mg/Ml Syringe) 1 mg IM .X1 PRN PRN Reason: Hypoglycemia Guaifenesin (Guaifenesin 1,200 Mg Tablet) 1,200 mg PO BID@1000,1700 [facility] Sodium Chloride () 1,000 mls @ 75 mls/hr IV .[id number] [facility] Insulin Human Lispro (Insulin Lispro 100 Unit/Ml Insuln.Pen) 0 unit SC Q6 CAT[place]ITA; Protocol Melatonin (Melatonin 3 Mg Tablet) 3 mg PO QHS PRN PRN PRN Reason: INSOMNIA Multivitamins (Multivitamins,Therapeutic Tablet) 1 tablet PO DINNER [facility] Non-Formulary Medication (Roflumilast) 500 mcg PO DAILY [facility] Ondansetron HCl (Ondansetron 4 Mg/2 Ml Vial) 4 mg IV Q8H PRN PRN PRN Reason: NAUSEA/VOMITING Assessment/Plan Active and Suspected Problems (Last Reviewed 09/28/20 @ 07:[address] Rock Shen MD) SARS (severe acute respiratory syndrome) (Acute) COVID-19 (Acute) Acute kidney injury (Acute) Acute and chronic respiratory failure with hypoxia (Acute) COPD exacerbation (Acute) RECOMMENDATIONS: 1. Wean patient from BiPAP and placed on supplemental O2 to maintain saturations 88-92% 2. Start AVAPS on a nightly basis and as needed throughout the day. 3. Supplemental IV fluid hydration. 4. Send coronavirus PCR. If positive, start remdesivir. 5. Check D-dimer and pro calcitonin. IMPRESSIONS: 1. Acute on chronic combined respiratory failure The patient presented to the hospital with worsening shortness of breath over the course of the last week. Rapid coronavirus antigen testing was positive. The patient did transiently have to be placed on noninvasive positive pressure ventilatory support. The patient does have a baseline of end-stage COPD and chronic hypoxemic respiratory failure with a baseline 4 L/min requirement. He has a history of frequent exacerbations. Aside from shortness of breath, the patient does not have any other Covid related symptomology. Therefore, we will check Covid PCR for confirmation. If the patient's PCR testing is positive, I would recommend that remdesivir also be started in addition to his Decadron. In the interim, we will plan to continue scheduled bronchodilators as ordered. The patient is on AVAPS at his baseline which can be continued throughout the day as needed and on a nightly basis. I would also recommend that a D-dimer and procalcitonin level be checked as well. 2. Acute kidney injury Likely prerenal in etiology. Given severe sepsis criteria, supplemental IV fluids will be administered. Recheck lactate level and monitor renal function for improvement. No current indication for renal replacement therapy. 3. Coronary artery disease status post PTCA/anxiety/hyperlipidemia/hypertension Complicates care, management, recovery and prognosis. Continue home medications as indicated. This note was generated with [employer] dictation software. It may contain incorrect words, spelling, and punctuation that were not noted in checking the note before signing. Inpatient E&M: 31253 Init Hosp L3
[2020-09-28 09:09] LABS: AST(SGOT) 41 U/L (15-37); Alanine Aminotransfer ALT/SGPT 32 U/L (16-61); Albumin, Serum 2.9 g/dL (3.2-5.0); Alkaline Phosphatase 93 U/L (45-117); Bilirubin, Direct 0.28 mg/dL (0.00-0.30); Globulin 5.1 g/dL (2.2-4.2)
[2020-09-28] MEDS: Lactated Ringers 1,000 ML 999 ML IV ×3 (09:20→11:30)
[2020-09-28 09:31] LABS: Bedside Glucose 134 mg/dL (70-110)
[2020-09-28 09:33] LABS: D-Dimer Quantitative (DVT/PE) 2.43 FEU/ug/m (0.27-0.49)
[2020-09-28 09:39] LABS: Reflex Lactate? Y
[2020-09-28] MEDS: Famotidine 20 MG Tablet PO (10:17)
[2020-09-28] MEDS: Clopidogrel Bisulfate 75 MG Tablet PO (10:17)
[2020-09-28] MEDS: Aspirin 81 MG TAB.CHEW PO (10:17)
[2020-09-28] MEDS: Enoxaparin 30 MG/0.3 ML Syringe SC ×2 (10:17→20:20)
[2020-09-28] MEDS: guaiFENesin 1,200 MG Tablet 1200 MG PO ×2 (11:57→17:43)
[2020-09-28] MEDS: buPROPion 100 MG Tablet PO ×2 (11:59→17:43)
[2020-09-28] MEDS: dexAMETHasone 10 MG/ML Vial 6 MG IV (12:00)
[2020-09-28 12:05] LABS: Alkaline Phosphatase 88 U/L (45-117)
[2020-09-28 12:44] LABS: Lactic Acid 2.8 mmol/L (0.4-1.9)
[2020-09-28] MEDS: 0.9% Normal Saline 1,000 ML 75 ML IV (12:51)
[2020-09-28] MEDS: Insulin Lispro 100 UNIT/ML INSULN.PEN SC (17:42)
[2020-09-28] MEDS: Ferrous Sulfate 325 MG Tablet PO (17:43)
[2020-09-28] MEDS: Atorvastatin Calcium 40 MG Tablet PO (17:43)
[2020-09-28] MEDS: Multivitamins,Therapeutic Tablet 1 TABLET PO (17:43)
[2020-09-28] MEDS: INHALER, ASSIST DEVICES 1 EACH SPACER INHALATION ×2 (17:44→22:28)
[2020-09-28 18:10] LABS: Bedside Glucose 176 mg/dL (70-110)
[2020-09-28] MEDS: Acetaminophen 325 MG Tablet 650 MG PO (20:18)
[2020-09-28 23:56] LABS: Bedside Glucose 142 mg/dL (70-110)
--- NOTE | 2020-09-28 23:56 | EKG12_ITS ---
Test Reason : CP Blood Pressure : / mmHG Vent. Rate : 092 BPM Atrial Rate : 092 BPM P-R Int : 130 ms QRS Dur : 086 ms QT Int : 348 ms P-R-T Axes : 045 041 041 degrees QTc Int : 430 ms Sinus rhythm with Preatrial ectopic complexes Low voltage QRS (Limb Leads) Confirmed by RUTH ANN ROTHMAN, [place] ([id number]), communications editor DENG DESHPANDE ([id number]) on 10/02/2020 8:50:25 AM Referred By: ANTONINA Confirmed By:TRENTON VALLECILLO MD
[2020-09-29] VITALS (34 sets, daily range): BP systolic 84–118; BP diastolic 55–84; PULSE 78–141; RESP 12–30; TEMP 36.3–38.7; O2SAT 90–99
[2020-09-29] MEDS: 0.9% Normal Saline 1,000 ML 75 ML IV ×2 (02:16→18:50)
[2020-09-29 03:57] LABS: Absolute Lymphocyte Count 0.53 X10^3/uL (0.83-4.51); Basophil# 0.01 X10^3/uL; Basophil% 0.1 % (0-1); Hematocrit 35.4 % (40-54); Hemoglobin 10.5 g/dL (13.0-16.5); Lymphocyte # 0.53 X10^3/ul (4.0); Lymphocyte % 4.2 % (19-41); Mean Corp Hgb Conc 29.7 g/dL (32-36); Mean Corpuscular Hgb 24.6 pg (27.0-32.0); Mean Corpuscular Volume 82.9 fL (80-94); Monocyte# 0.99 X10^3/uL; Monocyte% 7.9 % (0-10); NRBC Flagged by Analyzer 0 % (0-5); Neutrophil # 10.96 X10^3/uL (2.7-7.7); Neutrophil % 87.1 % (47-70); POSITIVE DIFFERENTIAL YES; Platelet Count 324 K/mm3 (150-450); RBC Distribution Width CV 15.7 % (11.6-14.6); RBC Distribution Width SD 47.2 fl (35.1-43.9); Red Blood Count 4.27 M/mm3 (4.6-6.2); White Blood Count 12.6 K/mm3 (4.4-11.0)
[2020-09-29 04:05] LABS: Differential Indicated SCAN CRITERIA MET
[2020-09-29 04:14] LABS: ALB/GLOB Ratio 0.5 RATIO (0.9-2.4); AST(SGOT) 152 U/L (15-37); Alanine Aminotransfer ALT/SGPT 48 U/L (16-61); Albumin, Serum 2.2 g/dL (3.2-5.0); Alkaline Phosphatase 70 U/L (45-117); Anion Gap 5 (5-15); BUN 23 mg/dL (7-18); BUN/Creat Ratio 18.3 RATIO (10-20); Calcium,Total 8.3 mg/dL (8.5-10.1); Chloride 97 mmol/L (98-107); Creatinine, Serum 1.26 mg/dL (0.70-1.30); EST Glomerular Filtration Rate 62 mL/min (>60); Est Glom Filt Rate - Afr Amer 75 mL/min (>60); Globulin 4.1 g/dL (2.2-4.2); Glucose 124 mg/dL (74-106); Potassium 4.1 mmol/L (3.5-5.1); Protein, Total 6.3 g/dL (6.4-8.2); Sodium Level 134 mmol/L (136-145)
[2020-09-29] MEDS: INHALER, ASSIST DEVICES 1 EACH SPACER INHALATION ×4 (05:25→21:19)
[2020-09-29 05:45] LABS: Bedside Glucose 109 mg/dL (70-110)
--- NOTE | 2020-09-29 07:08 | PN_ITS ---
Subjective: Patient did okay overnight. Patient did not use BiPAP therapy. Staff reported that he refused it, but patient reports it was never offered. Patient has been on his baseline 4 L nasal cannula, but is having a productive cough and reports slight worsening and wheezing compared to yesterday. General: Alert, Oriented x3, Cooperative, - - Moderate conversational dyspnea. Obese. Appears older than stated age. HEENT: Atraumatic, PERRLA, EOMI, Normocephalic, - - Slight injection. Glasses in place. Oral: Moist Mucosa, No Gingival or Mucosal Lesions/ Ulcerations, - - Crowded posterior pharynx Neck: Supple, No JVD, No Nodes, Trachea Midline Lungs: No rales, Diminished, Rhonchi - Improved with cough, Wheezes, - - Symmetric expansion. Increased AP diameter. Cardiovascular: Regular rate, Regular Rhythm, Normal S1, Normal S2, No murmurs, No rub noted, No Gallop Abdomen: Bowel Sounds Present, Soft, Non Tender, Non-Distended Extremities: No cyanosis, Clubbing, Edema - Trace lower extremity Skin: No rashes, No breakdown Musculoskeletal: No Tenderness to Palpation of Joints or Extremities Lymphatic: No Cervical, Supraclavicular, or Inguinal Adenopathy Neurological: Cranial nerves II-XII grossly intact, Neuro grossly intact, Motor Exam 5/5 strength throughout Psych/Mental Status: Alert and oriented to time, place, person, mood and affect Vital Signs Temp Pulse Resp BP Pulse Ox 36.3 C L 95 17 101/70 95 09/29/20 05:00 09/29/20 07:00 09/29/20 07:00 09/29/20 07:00 09/29/20 07:00 Oxygen Flow Rate (L/min) 4 Oxygen Delivery Method Nasal Cannula Weight: 106.5 kg Body Mass Index (BMI) 31.7 Intake and Output for Last 24 Hours 09/27/20 09/28/20 09/29/20 23:59 23:59 23:59 Intake Total 4310 / 4310 1170 / 1170 Output Total 1750 / 1750 550 / 550 Balance 2560 / 2560 620 / 620 Labs (Last 48 Hours) 09/28/20 09/28/20 09/28/20 05:35 05:35 05:35 WBC 15.1 H RBC 5.17 Hgb 12.9 L Hct 42.2 MCV 81.6 MCH 25.0 L MCHC 30.6 L RDW Std Deviation 46.3 H RDW Coeff of Asael 15.4 H Plt Count 412 MPV 9.8 Immature Gran % (Auto) 0.900 Neut % (Auto) 89.0 H Lymph % (Auto) 4.8 L [place] % (Auto) 5.0 Eos % (Auto) 0.1 Baso % (Auto) 0.2 Absolute Neuts (auto) 13.5 H Absolute Lymphs (auto) 0.72 L Nucleated RBC % 0 D-Dimer Quant (PE/DVT) Specimen Type Sample Site pH Bicarbonate Actual Total CO2 Base Excess O2 Saturation O2 % ABG pCO2 ABG pO2 Paco Test O2 Delivery Device Sodium 131 L Potassium 4.6 Chloride 93 L Carbon Dioxide 30.0 Anion Gap 8 BUN 29 H Creatinine 2.01 H Estim Creat Clear Calc 41.63 Est GFR (MDRD) Af Amer 44 L Est GFR (MDRD) Non-Af 36 L BUN/Creatinine Ratio 14.4 Glucose 183 H Lactic Acid 3.6 H* Calcium 9.2 Total Bilirubin Direct Bilirubin AST ALT Alkaline Phosphatase Troponin I 0.017 Total Protein Albumin Globulin Albumin/Globulin Ratio Procalcitonin COVID-19 (JAMAR) POC Glucose 09/28/20 09/28/20 09/28/20 05:35 05:46 08:20 WBC RBC Hgb Hct MCV MCH MCHC RDW Std Deviation RDW Coeff of Asael Plt Count MPV Immature Gran % (Auto) Neut % (Auto) Lymph % (Auto) [place] % (Auto) Eos % (Auto) Baso % (Auto) Absolute Neuts (auto) Absolute Lymphs (auto) Nucleated RBC % D-Dimer Quant (PE/DVT) Specimen Type ART Sample Site R Radial pH 7.39 Bicarbonate Actual 28.7 H Total CO2 30 Base Excess 4 H O2 Saturation 98 O2 % 50 ABG pCO2 47.4 H ABG pO2 110 H Paco Test Positive O2 Delivery Device BiPAP Sodium Potassium Chloride Carbon Dioxide Anion Gap BUN Creatinine Estim Creat Clear Calc Est GFR (MDRD) Af Amer Est GFR (MDRD) Non-Af BUN/Creatinine Ratio Glucose Lactic Acid Calcium Total Bilirubin 0.70 Direct Bilirubin 0.28 AST 41 H ALT 32 Alkaline Phosphatase 93 Troponin I Total Protein 8.0 Albumin 2.9 L Globulin 5.1 H Albumin/Globulin Ratio Procalcitonin COVID-19 (JAMAR) Detected POC Glucose 09/28/20 09/28/20 09/28/20 08:38 08:38 08:48 WBC RBC Hgb Hct MCV MCH MCHC RDW Std Deviation RDW Coeff of Asael Plt Count MPV Immature Gran % (Auto) Neut % (Auto) Lymph % (Auto) [place] % (Auto) Eos % (Auto) Baso % (Auto) Absolute Neuts (auto) Absolute Lymphs (auto) Nucleated RBC % D-Dimer Quant (PE/DVT) 2.43 H* Specimen Type Sample Site pH Bicarbonate Actual Total CO2 Base Excess O2 Saturation O2 % ABG pCO2 ABG pO2 Paco Test O2 Delivery Device Sodium Potassium Chloride Carbon Dioxide Anion Gap BUN Creatinine Estim Creat Clear Calc Est GFR (MDRD) Af Amer Est GFR (MDRD) Non-Af BUN/Creatinine Ratio Glucose Lactic Acid Calcium Total Bilirubin Direct Bilirubin AST ALT Alkaline Phosphatase 88 Troponin I Total Protein Albumin Globulin Albumin/Globulin Ratio Procalcitonin 36.40 H COVID-19 (JAMAR) POC Glucose 09/28/20 09/28/20 09/28/20 09:24 12:06 17:38 WBC RBC Hgb Hct MCV MCH MCHC RDW Std Deviation RDW Coeff of Asael Plt Count MPV Immature Gran % (Auto) Neut % (Auto) Lymph % (Auto) [place] % (Auto) Eos % (Auto) Baso % (Auto) Absolute Neuts (auto) Absolute Lymphs (auto) Nucleated RBC % D-Dimer Quant (PE/DVT) Specimen Type Sample Site pH Bicarbonate Actual Total CO2 Base Excess O2 Saturation O2 % ABG pCO2 ABG pO2 Paco Test O2 Delivery Device Sodium Potassium Chloride Carbon Dioxide Anion Gap BUN Creatinine Estim Creat Clear Calc Est GFR (MDRD) Af Amer Est GFR (MDRD) Non-Af BUN/Creatinine Ratio Glucose Lactic Acid 2.8 H* Calcium Total Bilirubin Direct Bilirubin AST ALT Alkaline Phosphatase Troponin I Total Protein Albumin Globulin Albumin/Globulin Ratio Procalcitonin COVID-19 (JAMAR) POC Glucose 134 H 176 H 09/28/20 09/29/20 09/29/20 23:35 03:00 03:00 WBC 12.6 H RBC 4.27 L Hgb 10.5 L Hct 35.4 L MCV 82.9 MCH 24.6 L MCHC 29.7 L RDW Std Deviation 47.2 H RDW Coeff of Asael 15.7 H Plt Count 324 MPV 10.0 Immature Gran % (Auto) 0.700 Neut % (Auto) 87.1 H Lymph % (Auto) 4.2 L [place] % (Auto) 7.9 Eos % (Auto) 0.0 Baso % (Auto) 0.1 Absolute Neuts (auto) 11.0 H Absolute Lymphs (auto) 0.53 L Nucleated RBC % 0 D-Dimer Quant (PE/DVT) Specimen Type Sample Site pH Bicarbonate Actual Total CO2 Base Excess O2 Saturation O2 % ABG pCO2 ABG pO2 Paco Test O2 Delivery Device Sodium 134 L Potassium 4.1 Chloride 97 L Carbon Dioxide 32.0 Anion Gap 5 BUN 23 H Creatinine 1.26 Estim Creat Clear Calc 66.40 Est GFR (MDRD) Af Amer 75 Est GFR (MDRD) Non-Af 62 BUN/Creatinine Ratio 18.3 Glucose 124 H Lactic Acid Calcium 8.3 L Total Bilirubin 0.40 Direct Bilirubin AST 152 H ALT 48 Alkaline Phosphatase 70 Troponin I Total Protein 6.3 L Albumin 2.2 L Globulin 4.1 Albumin/Globulin Ratio 0.5 L Procalcitonin COVID-19 (JAMAR) POC Glucose 142 H 09/29/20 05:19 WBC RBC Hgb Hct MCV MCH MCHC RDW Std Deviation RDW Coeff of Asael Plt Count MPV Immature Gran % (Auto) Neut % (Auto) Lymph % (Auto) [place] % (Auto) Eos % (Auto) Baso % (Auto) Absolute Neuts (auto) Absolute Lymphs (auto) Nucleated RBC % D-Dimer Quant (PE/DVT) Specimen Type Sample Site pH Bicarbonate Actual Total CO2 Base Excess O2 Saturation O2 % ABG pCO2 ABG pO2 Paco Test O2 Delivery Device Sodium Potassium Chloride Carbon Dioxide Anion Gap BUN Creatinine Estim Creat Clear Calc Est GFR (MDRD) Af Amer Est GFR (MDRD) Non-Af BUN/Creatinine Ratio Glucose Lactic Acid Calcium Total Bilirubin Direct Bilirubin AST ALT Alkaline Phosphatase Troponin I Total Protein Albumin Globulin Albumin/Globulin Ratio Procalcitonin COVID-19 (JAMAR) POC Glucose 109 Microbiology 09/28/20 18:00 Sputum, Expectorated/Coughed Gram Stain - Preliminary 09/28/20 08:20 Mucosa - Nose Respiratory Panel (PCR) - Final Rhinovirus 09/28/20 05:35 Mucosa - Nose SARS-CoV-2 Antigen (Rapid) - Final SARS-CoV-2 (COVID 19) Medical Necessity - Tobacco Use Smoking Status: Former smoker Assessment/Plan All Active Problems (Last Reviewed 09/28/20 @ 07:[address] Rock Shen MD) SARS (severe acute respiratory syndrome) (Acute) COVID-19 (Acute) Acute kidney injury (Acute) Acute and chronic respiratory failure with hypoxia (Acute) COPD exacerbation (Acute) RECOMMENDATIONS: 1. Supplemental O2 to maintain saturations 88-92% 2. AVAPS with sleep and rescue during the day 3. Likely discontinue hydration after another 24 hours 4. Agree with remdesivir and Decadron 5. Continue empiric antibiotics pending culture data IMPRESSIONS: 1. Acute on chronic combined respiratory failure Patient is well-known to me. Patient is on his baseline 4 L nasal cannula, but is reporting to be on day 4 of symptoms and has tested positive for rhinovirus and COVID-19. Patient does have advanced COPD and has been considered for lung transplantation in the past. Continue with bronchodilators, Decadron and remdesivir. Patient would likely be a candidate for convalescent serum. Extensive conversation about CODE STATUS and patient states he is willing to be intubated if necessary. 2. Acute kidney injury Likely prerenal in etiology. Improving. Patient has received some IV fluids, but these will likely need to be discontinued in the next 24 hours to avoid respiratory complications. No indication for renal replacement therapy at this time. 3. Coronary artery disease status post PTCA/anxiety/hyperlipidemia/hypertension Complicates care, management, recovery and prognosis. Continue home medications as indicated. Inpatient E&M: [id number] [facility] L3
[2020-09-29] MEDS: Aspirin 81 MG TAB.CHEW PO (09:56)
[2020-09-29] MEDS: Clopidogrel Bisulfate 75 MG Tablet PO (09:57)
[2020-09-29] MEDS: Enoxaparin 30 MG/0.3 ML Syringe SC ×2 (09:57→21:08)
[2020-09-29] MEDS: Azithromycin 250 MG Tablet PO (09:57)
[2020-09-29] MEDS: Famotidine 20 MG Tablet PO (09:57)
[2020-09-29] MEDS: dexAMETHasone 10 MG/ML Vial 6 MG IV (09:58)
--- NOTE | 2020-09-29 12:08 | CASEMGMT ---
RN CM Assessment Note Introduced role of CM to patient via phone to room. Patient answered the phone, is able to participate in assessment.. Demographics, PCP verified. Patient states he is feeling awful. RN CM offered to have nurse speak with patient, but patient declined. Patient met with Palliative Care in past, not current. - is speaking with physician today re: being tested. Pt states they have food, supplies at home. COVID TESTING: positive @ [facility] on 09/28/20 Presentation: shortness of breath Diagnosis: SARS Covid-19. Patient has advanced lung disease PCP: Dr. Matthew Specialists: Pulmonology, Dr. Mendez Insurance: [facility] Preferred Pharmacy: [facility] Prescription Benefit: yes LNOK: Jessica Living Arrangements: Lives independently with his . States he completes own ADL's. is not able to help the patient much per his report. He uses ambulatory DME in home. Tranportation: Self/ DME: rollator, walker, oxygen 4L NC with portability through [employer], Trilogy and nebulizer. HHC: none currently SNF: none Patient DC Goals: home DC Plan: TBD. CM available for discharge planning coordination. Contact CM for any concerns/needs that may arise. Shyam SORIANO RN ACM
--- NOTE | 2020-09-29 12:30 | EKG12_ITS ---
Test Reason : Blood Pressure : / mmHG Vent. Rate : 140 BPM Atrial Rate : 140 BPM P-R Int : 116 ms QRS Dur : 084 ms QT Int : 294 ms P-R-T Axes : 071 065 -27 degrees QTc Int : 448 ms Poor data quality, interpretation may be adversely affected Sinus tachycardia Low voltage QRS Borderline ECG Confirmed by RUTH ANN ROTHMAN, TRENTON ([id number]), supervising editor trailer DENG DESHPANDE ([id number]) on 10/06/2020 8:11:19 AM Referred By: ELAINE Confirmed By:TRENTON VALLECILLO MD
[2020-09-29] MEDS: Acetaminophen 325 MG Tablet 650 MG PO ×2 (13:04→23:17)
[2020-09-29] MEDS: Metoprolol Tartrate 25 MG Tablet PO ×2 (13:04→21:06)
[2020-09-29] MEDS: Metoprolol Tartrate 5 MG/5 ML Vial 2.5 MG IV (13:04)
[2020-09-29] MEDS: guaiFENesin 1,200 MG Tablet 1200 MG PO ×2 (13:06→17:53)
[2020-09-29] MEDS: buPROPion 100 MG Tablet PO ×2 (13:06→17:53)
[2020-09-29 16:05] LABS: Bedside Glucose 147 mg/dL (70-110)
[2020-09-29] MEDS: Atorvastatin Calcium 40 MG Tablet PO (17:53)
[2020-09-29] MEDS: Ferrous Sulfate 325 MG Tablet PO (17:53)
[2020-09-29] MEDS: Multivitamins,Therapeutic Tablet 1 TABLET PO (17:53)
--- NOTE | 2020-09-29 20:29 | PN_ITS ---
Patient Problems: Active and Suspected Problems (Last Reviewed 09/28/20 @ 07:[address] Rock Shen MD) SARS (severe acute respiratory syndrome) (Acute) COVID-19 (Acute) Acute kidney injury (Acute) Acute and chronic respiratory failure with hypoxia (Acute) COPD exacerbation (Acute) Subjective: No issues overnight, he had the BiPAP placed this morning after my evaluation for comfort. He goes between BiPAP and about 4 L nasal cannula. Vitals/I&O's: Vital Signs Temp Pulse Resp BP Pulse Ox 99.1 F 96 22 H 91/56 L 95 09/29/20 16:00 09/29/20 19:13 09/29/20 19:00 09/29/20 19:00 09/29/20 19:00 Oxygen Flow Rate (L/min) 4 Oxygen Delivery Method Bi-pap Weight: 234 lb 12.677 oz Body Mass Index (BMI) 31.7 Intake and Output for Last 24 Hours 09/27/20 09/28/20 09/29/20 23:59 23:59 23:59 Intake Total 4310 / 4310 2265 / 2265 Output Total 1750 / 1750 1025 / 1025 Balance 2560 / 2560 1240 / 1240 General: Alert, Oriented x3, Cooperative, No apparent distress HEENT: Atraumatic, PERRLA, EOMI, Normocephalic Oral: Moist Mucosa Neck: Supple, No JVD Lungs: Normal air movement, Diminished, Rhonchi, Wheezes Cardiovascular: Regular rate, Regular Rhythm, Normal S1, Normal S2, No murmurs Abdomen: Soft, Non Tender, Non-Distended, No Hepato-splenomegaly Extremities: No edema, Capillary Refill Less than 3 Seconds Skin: No rashes, No breakdown Neurological: Neuro grossly intact, Sensory exam intact to light touch and pain Psych/Mental Status: Normal Affect, Appropriate Microbiology Past 72 Hours 09/28/20 18:00 Sputum, Expectorated/Coughed Gram Stain - Final 09/28/20 18:00 Sputum, Expectorated/Coughed Respiratory Culture - Preliminary Appears to be normal respiratory catrachito. Further studies to follow. 09/28/20 08:20 Mucosa - Nose Respiratory Panel (PCR) - Final Rhinovirus 09/28/20 05:35 Mucosa - Nose SARS-CoV-2 Antigen (Rapid) - Final SARS-CoV-2 (COVID 19) Laboratory Results 09/28/20 23:35: POC Glucose 142 H 09/29/20 03:00: WBC 12.6 H, RBC 4.27 L, Hgb 10.5 L, Hct 35.4 L, MCV 82.9, MCH 24.6 L, MCHC 29.7 L, RDW Std Deviation 47.2 H, RDW Coeff of Asael 15.7 H, Plt Count 324, MPV 10.0, Immature Gran % (Auto) 0.700, Neut % (Auto) 87.1 H, Lymph % (Auto) 4.2 L, [place] % (Auto) 7.9, Eos % (Auto) 0.0, Baso % (Auto) 0.1, Absolute Neuts (auto) 11.0 H, Absolute Lymphs (auto) 0.53 L, Nucleated RBC % 0 09/29/20 03:00: Sodium 134 L, Potassium 4.1, Chloride 97 L, Carbon Dioxide 32.0, Anion Gap 5, BUN 23 H, Creatinine 1.26, Estim Creat Clear Calc 66.40, Est GFR (MDRD) Af Amer 75, Est GFR (MDRD) Non-Af 62, BUN/Creatinine Ratio 18.3, Glucose 124 H, Calcium 8.3 L, Total Bilirubin 0.40, AST 152 H, ALT 48, Alkaline Phosphatase 70, Total Protein 6.3 L, Albumin 2.2 L, Globulin 4.1, Albumin/Globulin Ratio 0.5 L 09/29/20 05:19: POC Glucose 109 09/29/20 13:02: POC Glucose 147 H Current Medications Acetaminophen (Acetaminophen 325 Mg Tablet) 650 mg PO Q6H PRN PRN PRN Reason: Pain Score 1-10/Temp > 100.7 F Last Admin: 09/29/20 13:04 Dose: 650 mg Documented by: Albuterol Sulfate (Albuterol Sulfate 8gm 60 Dose Inhaler (Floor Use-With Spacer )) 1 puff INHALATION Q4HWA.RT CATRACHITA Last Admin: 09/29/20 17:53 Dose: 1 puff Documented by: Albuterol Sulfate (Albuterol Sulfate 8gm 60 Dose Inhaler (Floor Use-With Spacer)) 1 puff INHALATION Q4H PRN PRN PRN Reason: Dyspnea, SOB Aspirin (Aspirin 81 Mg Tab.Chew) 81 mg PO DAILY [facility] Last Admin: 09/29/20 09:56 Dose: 81 mg Documented by: Atorvastatin Calcium (Atorvastatin Calcium 40 Mg Tablet) 40 mg PO DINNER [facility] Last Admin: 09/29/20 17:53 Dose: 40 mg Documented by: Azithromycin (Azithromycin 250 Mg Tablet) 250 mg PO MoWeFr@1000 [facility] Last Admin: 09/29/20 09:57 Dose: 250 mg Documented by: Bupropion HCl (Bupropion 100 Mg Tablet) 100 mg PO BID@1000,1700 [facility] Last Admin: 09/29/20 17:53 Dose: 100 mg Documented by: Cholecalciferol (Cholecalciferol (Vit D3) 1,000 Unit (25mcg)) 1,000 unit PO DAILY [facility] Last Admin: 09/29/20 09:58 Dose: 1,000 unit Documented by: Clopidogrel Bisulfate (Clopidogrel Bisulfate 75 Mg Tablet) 75 mg PO DAILY [facility] Last Admin: 09/29/20 09:57 Dose: 75 mg Documented by: Dexamethasone Sodium Phosphate (Dexamethasone 10 Mg/Ml Vial) 6 mg IV DAILY [facility] Last Admin: 09/29/20 09:58 Dose: 6 mg Documented by: Dextrose (Dextrose 50%-Water 25 Gm/50 Ml Disp.Syrin) 0 gm IV X1 PRN; Protocol PRN Reason: Hypoglycemia Enoxaparin Sodium (Enoxaparin 30 Mg/0.3 Ml Syringe) 30 mg SC BID [facility] Last Admin: 09/29/20 09:57 Dose: 30 mg Documented by: Famotidine (Famotidine 20 Mg Tablet) 20 mg PO DAILY [facility] Last Admin: 09/29/20 09:57 Dose: 20 mg Documented by: Ferrous Sulfate (Ferrous Sulfate 325 Mg Tablet) 325 mg PO DINNER [facility] Last Admin: 09/29/20 17:53 Dose: 325 mg Documented by: Glucagon (Glucagon 1 Mg/Ml Syringe) 1 mg IM .X1 PRN PRN Reason: Hypoglycemia Guaifenesin (Guaifenesin 1,200 Mg Tablet) 1,200 mg PO BID@1000,1700 [facility] Last Admin: 09/29/20 17:53 Dose: 1,200 mg Documented by: Sodium Chloride () 1,000 mls @ 75 mls/hr IV .[id number] [facility] Last Admin: 09/29/20 18:50 Dose: 75 mls/hr Documented by: Piperacillin Sod/Tazobactam (Sod 3.375 gm/ Sodium Chloride) 50 mls @ 12.5 mls/hr IV Q8 [facility] Last Admin: 09/29/20 15:38 Dose: 12.5 mls/hr Documented by: Remdesivir 100 mg/ Sodium (Chloride) 250 mls @ 125 mls/hr IV DAILY [facility] Stop: 10/02/20 11:59 Last Infusion: 09/29/20 14:43 Dose: Infused Documented by: Insulin Human Lispro (Insulin Lispro 100 Unit/Ml Insuln.Pen) 0 unit SC ACHS [facility]; Protocol Last Admin: 09/29/20 17:58 Dose: Not Given Documented by: Melatonin (Melatonin 3 Mg Tablet) 3 mg PO QHS PRN PRN PRN Reason: INSOMNIA Metoprolol Tartrate (Metoprolol Tartrate 25 Mg Tablet) 25 mg PO BID [facility] Last Admin: 09/29/20 13:04 Dose: 25 mg Documented by: Miscellaneous Information (Inhaler, Assist Devices 1 Each Spacer) 1 each INHALATION Q4HWA [facility] Last Admin: 09/29/20 17:53 Dose: 1 each Documented by: Multivitamins (Multivitamins,Therapeutic Tablet) 1 tablet PO DINNER [facility] Last Admin: 09/29/20 17:53 Dose: 1 tablet Documented by: Ondansetron HCl (Ondansetron 4 Mg/2 Ml Vial) 4 mg IV Q8H PRN PRN PRN Reason: NAUSEA/VOMITING STROKE Vital Signs/Narrative: Vital Signs Pulse Resp BP Pulse Ox 09/29/20 19:13 96 09/29/20 19:00 22 H 91/56 L 95 09/29/20 18:00 96 21 H 89/58 L 96 09/29/20 17:00 103 H 25 H 100/60 95 Medical Necessity - Tobacco Use Smoking Status: Former smoker Assessment/Plan All Active Problems (Last Reviewed 09/28/20 @ 07:[address] Rock Shen MD) SARS (severe acute respiratory syndrome) (Acute) COVID-19 (Acute) Acute kidney injury (Acute) Acute and chronic respiratory failure with hypoxia (Acute) COPD exacerbation (Acute) 1. 1. Acute on chronic respiratory failure secondary to COVID-19 pneumonia/acute exacerbation of COPD/ANNETTE -He is currently been going between nasal cannula and AVAPS. -Continue with Decadron, remdesivir, inhalers -His FEV1 is less than 20% of predicted which is concerning for his prognosis -Continue to monitor renal function -He is on azithromycin for chronic control of his COPD as well as chronic prednisone 2. CAD status post stent/chronic diastolic CHF/HTN/HLD -We will continue to monitor his blood pressures, he was a little hypotensive when he first presented to the hospital -Continue with his metoprolol but will hold off on Lasix and provided only when necessary -Continue with aspirin and Plavix 3. DM 2 -We will hold his home metformin and place him on insulin -Accu-Cheks AC at bedtime, will adjust insulin as necessary given his steroid usage 4. Chronic iron deficiency anemia -Hemoglobin stable -Continue with iron supplementation 5. Anxiety/depression -Stable -Continue with Wellbutrin DVT: Lovenox Inpatient E&M: 21001 Subs Hosp L2
[2020-09-29 20:56] LABS: Bedside Glucose 120 mg/dL (70-110)
[2020-09-29 21:51] LABS: Bedside Glucose 99 mg/dL (70-110)
[2020-09-30] VITALS (36 sets, daily range): BP systolic 83–120; BP diastolic 50–74; PULSE 88–122; RESP 12–32; TEMP 36.7–38.7; O2SAT 90–96
[2020-09-30] MEDS: MELATONIN 3 MG TABLET PO ×2 (01:00→22:57)
[2020-09-30] MEDS: INHALER, ASSIST DEVICES 1 EACH SPACER INHALATION ×5 (05:29→20:23)
[2020-09-30 06:13] LABS: Basophil# 0.02 X10^3/uL; Basophil% 0.3 % (0-1); Hematocrit 34.6 % (40-54); Hemoglobin 10.6 g/dL (13.0-16.5); Lymphocyte % 10.5 % (19-41); Mean Corp Hgb Conc 30.6 g/dL (32-36); Mean Corpuscular Hgb 25.4 pg (27.0-32.0); Monocyte# 0.69 X10^3/uL; NRBC Flagged by Analyzer 0 % (0-5); Neutrophil # 6.03 X10^3/uL (2.7-7.7); Neutrophil % 78.9 % (47-70); Platelet Count 327 K/mm3 (150-450); RBC Distribution Width CV 15.5 % (11.6-14.6); Red Blood Count 4.17 M/mm3 (4.6-6.2); White Blood Count 7.6 K/mm3 (4.4-11.0)
[2020-09-30 06:34] LABS: ALB/GLOB Ratio 0.5 RATIO (0.9-2.4); AST(SGOT) 139 U/L (15-37); Alanine Aminotransfer ALT/SGPT 60 U/L (16-61); Alkaline Phosphatase 65 U/L (45-117); Anion Gap 4 (5-15); BUN 20 mg/dL (7-18); BUN/Creat Ratio 16.7 RATIO (10-20); Calcium,Total 8.3 mg/dL (8.5-10.1); Chloride 99 mmol/L (98-107); EST Glomerular Filtration Rate 65 mL/min (>60); Est Glom Filt Rate - Afr Amer 79 mL/min (>60); Estimated Creatinine Clearance 69.72 ml/min; Globulin 3.9 g/dL (2.2-4.2); Glucose 80 mg/dL (74-106); Potassium 3.5 mmol/L (3.5-5.1); Protein, Total 5.9 g/dL (6.4-8.2); Sodium Level 137 mmol/L (136-145)
[2020-09-30 06:50] LABS: Bedside Glucose 86 mg/dL (70-110)
--- NOTE | 2020-09-30 08:06 | PCM.PN.INT ---
Subjective: Patient was significant difficulty overnight. Patient did spike a fever and had significant respiratory distress. Patient has been using his AVAPS more often secondary to respiratory distress. Patient is denying any GI symptomatology. General: Alert, Oriented x3, Cooperative, - - Good BiPAP synchrony. Mild respiratory distress. Appears older than stated age HEENT: Atraumatic, PERRLA, EOMI, Normocephalic, - - No scleral icterus or injection noted Oral: No Gingival or Mucosal Lesions/ Ulcerations, Dry Mucosa Neck: Supple, No JVD, No Nodes, Trachea Midline Lungs: No rhonchi, No rales, Diminished, Wheezes, - - Symmetric expansion Cardiovascular: Normal S1, Normal S2, No murmurs, No rub noted, No Gallop, Tachycardic Abdomen: Bowel Sounds Present, Soft, Non Tender, Non-Distended, Obese Extremities: No cyanosis, No edema, Clubbing Skin: No rashes, No breakdown Musculoskeletal: No Tenderness to Palpation of Joints or Extremities Lymphatic: No Cervical, Supraclavicular, or Inguinal Adenopathy Neurological: Cranial nerves II-XII grossly intact, Neuro grossly intact, Motor Exam 5/5 strength throughout Psych/Mental Status: Alert and oriented to time, place, person, mood and affect Vital Signs Temp Pulse Resp BP Pulse Ox 37.1 C 105 H 24 H 98/66 94 09/30/20 05:00 09/30/20 07:00 09/30/20 07:00 09/30/20 07:00 09/30/20 07:00 Oxygen Flow Rate (L/min) 4 Oxygen Delivery Method Bi-pap Weight: 105.3 kg Body Mass Index (BMI) 31.7 Intake and Output for Last 24 Hours 09/28/20 09/29/20 09/30/20 23:59 23:59 23:59 Intake Total 4310 / 4310 2937.5 / 2937.5 170 / 170 Output Total 1750 / 1750 1625 / 1625 300 / 300 Balance 2560 / 2560 1312.5 / 1312.5 -130 / -130 Labs (Last 48 Hours) 09/28/20 09/28/20 09/28/20 05:35 08:20 08:38 WBC RBC Hgb Hct MCV MCH MCHC RDW Std Deviation RDW Coeff of Asael Plt Count MPV Immature Gran % (Auto) Neut % (Auto) Lymph % (Auto) [place] % (Auto) Eos % (Auto) Baso % (Auto) Absolute Neuts (auto) Absolute Lymphs (auto) Nucleated RBC % D-Dimer Quant (PE/DVT) 2.43 H* Sodium Potassium Chloride Carbon Dioxide Anion Gap BUN Creatinine Estim Creat Clear Calc Est GFR (MDRD) Af Amer Est GFR (MDRD) Non-Af BUN/Creatinine Ratio Glucose Lactic Acid Calcium Total Bilirubin 0.70 Direct Bilirubin 0.28 AST 41 H ALT 32 Alkaline Phosphatase 93 Total Protein 8.0 Albumin 2.9 L Globulin 5.1 H Albumin/Globulin Ratio Procalcitonin COVID-19 (JAMAR) Detected POC Glucose 09/28/20 09/28/20 09/28/20 08:38 08:48 09:24 WBC RBC Hgb Hct MCV MCH MCHC RDW Std Deviation RDW Coeff of Asael Plt Count MPV Immature Gran % (Auto) Neut % (Auto) Lymph % (Auto) [place] % (Auto) Eos % (Auto) Baso % (Auto) Absolute Neuts (auto) Absolute Lymphs (auto) Nucleated RBC % D-Dimer Quant (PE/DVT) Sodium Potassium Chloride Carbon Dioxide Anion Gap BUN Creatinine Estim Creat Clear Calc Est GFR (MDRD) Af Amer Est GFR (MDRD) Non-Af BUN/Creatinine Ratio Glucose Lactic Acid Calcium Total Bilirubin Direct Bilirubin AST ALT Alkaline Phosphatase 88 Total Protein Albumin Globulin Albumin/Globulin Ratio Procalcitonin 36.40 H COVID-19 (JAMAR) POC Glucose 134 H 09/28/20 09/28/20 09/28/20 12:06 17:38 23:35 WBC RBC Hgb Hct MCV MCH MCHC RDW Std Deviation RDW Coeff of Asael Plt Count MPV Immature Gran % (Auto) Neut % (Auto) Lymph % (Auto) [place] % (Auto) Eos % (Auto) Baso % (Auto) Absolute Neuts (auto) Absolute Lymphs (auto) Nucleated RBC % D-Dimer Quant (PE/DVT) Sodium Potassium Chloride Carbon Dioxide Anion Gap BUN Creatinine Estim Creat Clear Calc Est GFR (MDRD) Af Amer Est GFR (MDRD) Non-Af BUN/Creatinine Ratio Glucose Lactic Acid 2.8 H* Calcium Total Bilirubin Direct Bilirubin AST ALT Alkaline Phosphatase Total Protein Albumin Globulin Albumin/Globulin Ratio Procalcitonin COVID-19 (JAMAR) POC Glucose 176 H 142 H 09/29/20 09/29/20 09/29/20 03:00 03:00 05:19 WBC 12.6 H RBC 4.27 L Hgb 10.5 L Hct 35.4 L MCV 82.9 MCH 24.6 L MCHC 29.7 L RDW Std Deviation 47.2 H RDW Coeff of Asael 15.7 H Plt Count 324 MPV 10.0 Immature Gran % (Auto) 0.700 Neut % (Auto) 87.1 H Lymph % (Auto) 4.2 L [place] % (Auto) 7.9 Eos % (Auto) 0.0 Baso % (Auto) 0.1 Absolute Neuts (auto) 11.0 H Absolute Lymphs (auto) 0.53 L Nucleated RBC % 0 D-Dimer Quant (PE/DVT) Sodium 134 L Potassium 4.1 Chloride 97 L Carbon Dioxide 32.0 Anion Gap 5 BUN 23 H Creatinine 1.26 Estim Creat Clear Calc 66.40 Est GFR (MDRD) Af Amer 75 Est GFR (MDRD) Non-Af 62 BUN/Creatinine Ratio 18.3 Glucose 124 H Lactic Acid Calcium 8.3 L Total Bilirubin 0.40 Direct Bilirubin AST 152 H ALT 48 Alkaline Phosphatase 70 Total Protein 6.3 L Albumin 2.2 L Globulin 4.1 Albumin/Globulin Ratio 0.5 L Procalcitonin COVID-19 (JAMAR) POC Glucose 109 09/29/20 09/29/20 09/29/20 13:02 17:58 20:57 WBC RBC Hgb Hct MCV MCH MCHC RDW Std Deviation RDW Coeff of Asael Plt Count MPV Immature Gran % (Auto) Neut % (Auto) Lymph % (Auto) [place] % (Auto) Eos % (Auto) Baso % (Auto) Absolute Neuts (auto) Absolute Lymphs (auto) Nucleated RBC % D-Dimer Quant (PE/DVT) Sodium Potassium Chloride Carbon Dioxide Anion Gap BUN Creatinine Estim Creat Clear Calc Est GFR (MDRD) Af Amer Est GFR (MDRD) Non-Af BUN/Creatinine Ratio Glucose Lactic Acid Calcium Total Bilirubin Direct Bilirubin AST ALT Alkaline Phosphatase Total Protein Albumin Globulin Albumin/Globulin Ratio Procalcitonin COVID-19 (JAMAR) POC Glucose 147 H 120 H 99 09/30/20 09/30/20 09/30/20 05:51 06:00 06:00 WBC 7.6 RBC 4.17 L Hgb 10.6 L Hct 34.6 L MCV 83.0 MCH 25.4 L MCHC 30.6 L RDW Std Deviation 47.0 H RDW Coeff of Asael 15.5 H Plt Count 327 MPV 10.0 Immature Gran % (Auto) 1.300 H Neut % (Auto) 78.9 H Lymph % (Auto) 10.5 L [place] % (Auto) 9.0 Eos % (Auto) 0.0 Baso % (Auto) 0.3 Absolute Neuts (auto) 6.0 Absolute Lymphs (auto) 0.80 L Nucleated RBC % 0 D-Dimer Quant (PE/DVT) Sodium 137 Potassium 3.5 Chloride 99 Carbon Dioxide 34.0 H Anion Gap 4 L BUN 20 H Creatinine 1.20 Estim Creat Clear Calc 69.72 Est GFR (MDRD) Af Amer 79 Est GFR (MDRD) Non-Af 65 BUN/Creatinine Ratio 16.7 Glucose 80 Lactic Acid Calcium 8.3 L Total Bilirubin 0.50 Direct Bilirubin AST 139 H ALT 60 Alkaline Phosphatase 65 Total Protein 5.9 L Albumin 2.0 L Globulin 3.9 Albumin/Globulin Ratio 0.5 L Procalcitonin COVID-19 (JAMAR) POC Glucose 86 Microbiology 09/28/20 05:48 Blood Culture (Wb) #2 - Left Wrist Blood Culture - Preliminary No growth in 48 hours. 09/28/20 05:35 Blood Culture (Wb) - Anticubital Right Blood Culture - Preliminary No growth in 48 hours. 09/28/20 18:00 Sputum, Expectorated/Coughed Gram Stain - Final 09/28/20 18:00 Sputum, Expectorated/Coughed Respiratory Culture - Preliminary Appears to be normal respiratory catrachito. Further studies to follow. 09/28/20 08:20 Mucosa - Nose Respiratory Panel (PCR) - Final Rhinovirus 09/28/20 05:35 Mucosa - Nose SARS-CoV-2 Antigen (Rapid) - Final SARS-CoV-2 (COVID 19) Medical Necessity - Tobacco Use Smoking Status: Former smoker Assessment/Plan All Active Problems (Last Reviewed 09/28/20 @ 07:[address] Rock Shen MD) SARS (severe acute respiratory syndrome) (Acute) COVID-19 (Acute) Acute kidney injury (Acute) Acute and chronic respiratory failure with hypoxia (Acute) COPD exacerbation (Acute) RECOMMENDATIONS: 1. Supplemental O2 to maintain saturations 88-92% 2. AVAPS with sleep and rescue during the day 3. Likely discontinue hydration after another 24 hours 4. Agree with remdesivir and Decadron 5. Continue empiric antibiotics pending culture data IMPRESSIONS: 1. Acute on chronic combined respiratory failure Patient is well-known to me. Patient is on his baseline 4 L nasal cannula, but is reporting to be on day 4 of symptoms and has tested positive for rhinovirus and COVID-19. Patient does have advanced COPD and has been considered for lung transplantation in the past. Continue with bronchodilators, Decadron and remdesivir. Some concern the patient does not have the respiratory reserve to tolerate high fevers. Would be proactive in treating fever. Okay to continue with empiric antibiotics from my perspective. Given marginal status from a respiratory standpoint, would be cautious with convalescent serum. If patient gets intubated, high suspicion the trach and PEG will be necessary. 2. Acute kidney injury Likely prerenal in etiology. Improving. Patient has received some IV fluids, but these will likely need to be discontinued in the next 24 hours to avoid respiratory complications. No indication for renal replacement therapy at this time. 3. Coronary artery disease status post PTCA/anxiety/hyperlipidemia/hypertension Complicates care, management, recovery and prognosis. Continue home medications as indicated. Inpatient E&M: 86851 [facility] Hosp L3
[2020-09-30] MEDS: Acetaminophen 325 MG Tablet 650 MG PO ×2 (09:08→20:20)
--- NOTE | 2020-09-30 10:07 | PN_ITS ---
Patient Problems: Active and Suspected Problems (Last Reviewed 09/28/20 @ 07:[address] Rock Shen MD) SARS (severe acute respiratory syndrome) (Acute) COVID-19 (Acute) Acute kidney injury (Acute) Acute and chronic respiratory failure with hypoxia (Acute) COPD exacerbation (Acute) Subjective: He did spike a temp overnight, and does not seem to consistently use his BiPAP which is available. There has been some compliance issues with his BiPAP at home as well prior to this admission Vitals/I&O's: Vital Signs Temp Pulse Resp BP Pulse Ox 98.7 F 106 H 22 H 98/66 94 09/30/20 05:00 09/30/20 07:22 09/30/20 07:22 09/30/20 07:00 09/30/20 07:22 Oxygen Flow Rate (L/min) 4 Oxygen Delivery Method Bi-pap Weight: 232 lb 2.348 oz Body Mass Index (BMI) 31.7 Intake and Output for Last 24 Hours 09/28/20 09/29/20 09/30/20 23:59 23:59 23:59 Intake Total 4310 / 4310 2937.5 / 2937.5 220 / 220 Output Total 1750 / 1750 1625 / 1625 550 / 550 Balance 2560 / 2560 1312.5 / 1312.5 -330 / -330 General: Alert, Oriented x3, Cooperative HEENT: Atraumatic, PERRLA, EOMI, Normocephalic Oral: Dry mucosa Neck: Supple, No JVD Lungs: Normal air movement, Diminished, no rhonchi, Wheezes Cardiovascular: Regular rate, Regular Rhythm, Normal S1, Normal S2, No murmurs Abdomen: Soft, Non Tender, Non-Distended, No Hepato-splenomegaly Extremities: No edema, Capillary Refill Less than 3 Seconds Skin: No rashes, No breakdown Neurological: Neuro grossly intact, Sensory exam intact to light touch and pain Psych/Mental Status: Normal Affect, Appropriate Microbiology Past 72 Hours 09/28/20 18:00 Sputum, Expectorated/Coughed Gram Stain - Final 09/28/20 18:00 Sputum, Expectorated/Coughed Respiratory Culture - Preliminary 09/28/20 05:48 Blood Culture (Wb) #2 - Left Wrist Blood Culture - Preliminary No growth in 48 hours. 09/28/20 05:35 Blood Culture (Wb) - Anticubital Right Blood Culture - Preliminary No growth in 48 hours. 09/28/20 08:20 Mucosa - Nose Respiratory Panel (PCR) - Final Rhinovirus 09/28/20 05:35 Mucosa - Nose SARS-CoV-2 Antigen (Rapid) - Final SARS-CoV-2 (COVID 19) Laboratory Results 09/29/20 13:02: POC Glucose 147 H 09/29/20 17:58: POC Glucose 120 H 09/29/20 20:57: POC Glucose 99 09/30/20 05:51: POC Glucose 86 09/30/20 06:00: WBC 7.6, RBC 4.17 L, Hgb 10.6 L, Hct 34.6 L, MCV 83.0, MCH 25.4 L, MCHC 30.6 L, RDW Std Deviation 47.0 H, RDW Coeff of Asael 15.5 H, Plt Count 327, MPV 10.0, Immature Gran % (Auto) 1.300 H, Neut % (Auto) 78.9 H, Lymph % (Auto) 10.5 L, [place] % (Auto) 9.0, Eos % (Auto) 0.0, Baso % (Auto) 0.3, Absolute Neuts (auto) 6.0, Absolute Lymphs (auto) 0.80 L, Nucleated RBC % 0 09/30/20 06:00: Sodium 137, Potassium 3.5, Chloride 99, Carbon Dioxide 34.0 H, Anion Gap 4 L, BUN 20 H, Creatinine 1.20, Estim Creat Clear Calc 69.72, Est GFR (MDRD) Af Amer 79, Est GFR (MDRD) Non-Af 65, BUN/Creatinine Ratio 16.7, Glucose 80, Calcium 8.3 L, Total Bilirubin 0.50, AST 139 H, ALT 60, Alkaline Phosphatase 65, Total Protein 5.9 L, Albumin 2.0 L, Globulin 3.9, Albumin/Globulin Ratio 0.5 L Current Medications Acetaminophen (Acetaminophen 325 Mg Tablet) 650 mg PO Q6H PRN PRN PRN Reason: Pain Score 1-10/Temp > 100.7 F Last Admin: 09/30/20 09:08 Dose: 650 mg Documented by: Albuterol Sulfate (Albuterol Sulfate 8gm 60 Dose Inhaler (Floor Use-With Spacer)) 1 puff INHALATION Q4HWA.RT [facility] Last Admin: 09/30/20 05:29 Dose: 1 puff Documented by: Albuterol Sulfate (Albuterol Sulfate 8gm 60 Dose Inhaler (Floor Use-With Spacer)) 1 puff INHALATION Q4H PRN PRN PRN Reason: Dyspnea, SOB Last Admin: 09/30/20 00:59 Dose: 1 puff Documented by: Aspirin (Aspirin 81 Mg Tab.Chew) 81 mg PO DAILY [facility] Last Admin: 09/29/20 09:56 Dose: 81 mg Documented by: Atorvastatin Calcium (Atorvastatin Calcium 40 Mg Tablet) 40 mg PO DINNER [facility] Last Admin: 09/29/20 17:53 Dose: 40 mg Documented by: Azithromycin (Azithromycin 250 Mg Tablet) 250 mg PO MoWeFr@1000 [facility] Last Admin: 09/29/20 09:57 Dose: 250 mg Documented by: Bupropion HCl (Bupropion 100 Mg Tablet) 100 mg PO BID@1000,1700 [facility] Last Admin: 09/29/20 17:53 Dose: 100 mg Documented by: Cholecalciferol (Cholecalciferol (Vit D3) 1,000 Unit (25mcg)) 1,000 unit PO DAILY [facility] Last Admin: 09/29/20 09:58 Dose: 1,000 unit Documented by: Clopidogrel Bisulfate (Clopidogrel Bisulfate 75 Mg Tablet) 75 mg PO DAILY [facility] Last Admin: 09/29/20 09:57 Dose: 75 mg Documented by: Dexamethasone Sodium Phosphate (Dexamethasone 10 Mg/Ml Vial) 6 mg IV DAILY [facility] Last Admin: 09/29/20 09:58 Dose: 6 mg Documented by: Dextrose (Dextrose 50%-Water 25 Gm/50 Ml Disp.Syrin) 0 gm IV X1 PRN; Protocol PRN Reason: Hypoglycemia Enoxaparin Sodium (Enoxaparin 30 Mg/0.3 Ml Syringe) 30 mg SC BID [facility] Last Admin: 09/29/20 21:08 Dose: 30 mg Documented by: Famotidine (Famotidine 20 Mg Tablet) 20 mg PO DAILY [facility] Last Admin: 09/29/20 09:57 Dose: 20 mg Documented by: Ferrous Sulfate (Ferrous Sulfate 325 Mg Tablet) 325 mg PO DINNER [facility] Last Admin: 09/29/20 17:53 Dose: 325 mg Documented by: Glucagon (Glucagon 1 Mg/Ml Syringe) 1 mg IM .X1 PRN PRN Reason: Hypoglycemia Guaifenesin (Guaifenesin 1,200 Mg Tablet) 1,200 mg PO BID@1000,1700 [facility] Last Admin: 09/29/20 17:53 Dose: 1,200 mg Documented by: Piperacillin Sod/Tazobactam (Sod 3.375 gm/ Sodium Chloride) 50 mls @ 12.5 mls/hr IV Q8 [facility] Last Infusion: 09/30/20 10:00 Dose: Infused Documented by: Remdesivir 100 mg/ Sodium (Chloride) 250 mls @ 125 mls/hr IV DAILY [facility] Stop: 10/02/20 11:59 Last Infusion: 09/29/20 14:43 Dose: Infused Documented by: Insulin Human Lispro (Insulin Lispro 100 Unit/Ml Insuln.Pen) 0 unit SC ACHS [facility]; Protocol Last Admin: 09/30/20 07:12 Dose: Not Given Documented by: Melatonin (Melatonin 3 Mg Tablet) 3 mg PO QHS PRN PRN PRN Reason: INSOMNIA Last Admin: 09/30/20 01:00 Dose: 3 mg Documented by: Metoprolol Tartrate (Metoprolol Tartrate 25 Mg Tablet) 25 mg PO BID [facility] Last Admin: 09/29/20 21:06 Dose: 25 mg Documented by: Miscellaneous Information (Inhaler, Assist Devices 1 Each Spacer) 1 each INHALATION Q4HWA [facility] Last Admin: 09/30/20 05:29 Dose: 1 each Documented by: Multivitamins (Multivitamins,Therapeutic Tablet) 1 tablet PO DINNER [facility] Last Admin: 09/29/20 17:53 Dose: 1 tablet Documented by: Ondansetron HCl (Ondansetron 4 Mg/2 Ml Vial) 4 mg IV Q8H PRN PRN PRN Reason: NAUSEA/VOMITING STROKE Vital Signs/Narrative: Vital Signs Pulse Resp BP Pulse Ox 09/30/20 07:22 106 H 22 H 94 09/30/20 07:00 105 H 24 H 98/66 94 Medical Necessity - Tobacco Use Smoking Status: Former smoker Assessment/Plan All Active Problems (Last Reviewed 09/28/20 @ 07:[address] Rock Shen MD) SARS (severe acute respiratory syndrome) (Acute) COVID-19 (Acute) Acute kidney injury (Acute) Acute and chronic respiratory failure with hypoxia (Acute) COPD exacerbation (Acute) 1. 1. Acute on chronic respiratory failure secondary to COVID-19 pneumonia/acute exacerbation of COPD/ANNETTE -He is currently been going between nasal cannula and AVAPS. He has had some poor compliance with the AVAPS though now that he has little bit more respiratory distress he has been more consistently wearing it -Continue with Decadron, remdesivir, inhalers -His FEV1 is less than 20% of predicted which is concerning for his prognosis -Continue to monitor renal function -He is on azithromycin for chronic control of his COPD as well as chronic prednisone 2. CAD status post stent/chronic diastolic CHF/HTN/HLD -We will continue to monitor his blood pressures, he was a little hypotensive when he first presented to the hospital -Continue with his metoprolol but will hold off on Lasix and provided only when necessary -Continue with aspirin and Plavix 3. DM 2 -We will hold his home metformin and place him on insulin -Accu-Cheks AC at bedtime, will adjust insulin as necessary given his steroid usage 4. Chronic iron deficiency anemia -Hemoglobin stable -Continue with iron supplementation 5. Anxiety/depression -Stable -Continue with Wellbutrin DVT: Lovenox Inpatient E&M: 86197 Subs Hosp L2
[2020-09-30] MEDS: Enoxaparin 30 MG/0.3 ML Syringe SC ×2 (11:08→21:23)
[2020-09-30] MEDS: Aspirin 81 MG TAB.CHEW PO (11:08)
[2020-09-30] MEDS: Clopidogrel Bisulfate 75 MG Tablet PO (11:08)
[2020-09-30] MEDS: buPROPion 100 MG Tablet PO ×2 (11:08→17:13)
[2020-09-30] MEDS: Famotidine 20 MG Tablet PO (11:09)
[2020-09-30] MEDS: Metoprolol Tartrate 25 MG Tablet PO ×2 (11:13→20:20)
[2020-09-30 17:10] LABS: Bedside Glucose 84 mg/dL (70-110)
[2020-09-30] MEDS: Ferrous Sulfate 325 MG Tablet PO (17:13)
[2020-09-30] MEDS: guaiFENesin 1,200 MG Tablet 1200 MG PO (17:13)
[2020-09-30] MEDS: Atorvastatin Calcium 40 MG Tablet PO (17:13)
[2020-09-30] MEDS: Multivitamins,Therapeutic Tablet 1 TABLET PO (17:13)
--- NOTE | 2020-09-30 20:15 | RAD_ITS ---
STUDY: X-RAY CHEST REASON FOR EXAM: Male, 59 years old. PICC LINE PLACEMENT TECHNIQUE: frontal view of the chest. COMPARISON: September 28, 2020 FINDINGS: PICC on the right extends to the superior vena cava. There are monitoring devices. There is hyperinflation of the lungs consistent with chronic obstructive lung disease (COPD). There are bilateral groundglass and airspace opacities of the lungs. There is no demonstrated pleural abnormality. Normal size heart. Normal mediastinum and kim. Normal visualized pulmonary arteries. Normal visualized aortic arch and descending thoracic aorta. Normal visualized thoracic spine. Normal visualized ribs, clavicles, and shoulders. There is no demonstrated abnormality of the visualized soft tissue structures of the upper abdomen. RAD/CXR for Line Placement IMPRESSION: Catheter placement. Bilateral pneumonia. Electronically Signed: Josafat Carrasco MD at 21:31 EST , Service support ,
[2020-09-30 20:51] LABS: Bedside Glucose 135 mg/dL (70-110)
[2020-09-30] MEDS: dexAMETHasone 10 MG/ML Vial 6 MG IV (21:21)
--- NOTE | 2020-09-30 22:50 | CPS ---
PT removed bipap for bathroom. RT placed on 6L NC. RN in room.
[2020-10-01] VITALS (38 sets, daily range): BP systolic 88–109; BP diastolic 44–76; PULSE 62–93; RESP 12–28; TEMP 36.1–36.6; O2SAT 92–98
[2020-10-01 00:55] LABS: Bedside Glucose 114 mg/dL (70-110)
[2020-10-01] MEDS: INHALER, ASSIST DEVICES 1 EACH SPACER INHALATION ×5 (06:31→22:54)
[2020-10-01 06:46] LABS: Basophil# 0.03 X10^3/uL; Hematocrit 37.2 % (40-54); Mean Corp Hgb Conc 29.6 g/dL (32-36); Mean Corpuscular Hgb 24.9 pg (27.0-32.0); Mean Corpuscular Volume 84.4 fL (80-94); Mean Platelet Vol. 10.3 fl (6.2-12.0); Monocyte# 0.32 X10^3/uL; NRBC Flagged by Analyzer 0 % (0-5); POSITIVE MORPHOLOGY YES; Platelet Count 362 K/mm3 (150-450); RBC Distribution Width CV 15.8 % (11.6-14.6); RBC Distribution Width SD 48.1 fl (35.1-43.9); Red Blood Count 4.41 M/mm3 (4.6-6.2); White Blood Count 5.2 K/mm3 (4.4-11.0)
[2020-10-01 06:50] LABS: Differential Indicated SCAN CRITERIA MET
[2020-10-01 07:02] LABS: ALB/GLOB Ratio 0.5 RATIO (0.9-2.4); AST(SGOT) 99 U/L (15-37); Alanine Aminotransfer ALT/SGPT 65 U/L (16-61); Albumin, Serum 2.1 g/dL (3.2-5.0); Alkaline Phosphatase 76 U/L (45-117); Anion Gap 1 (5-15); BUN 22 mg/dL (7-18); Calcium,Total 8.9 mg/dL (8.5-10.1); Chloride 101 mmol/L (98-107); EST Glomerular Filtration Rate 81 mL/min (>60); Est Glom Filt Rate - Afr Amer 98 mL/min (>60); Estimated Creatinine Clearance 83.67 ml/min; Globulin 4.2 g/dL (2.2-4.2); Glucose 181 mg/dL (74-106); Potassium 4.1 mmol/L (3.5-5.1); Protein, Total 6.3 g/dL (6.4-8.2); Sodium Level 137 mmol/L (136-145)
[2020-10-01 07:55] LABS: Basophil 1 % (0-1); Lymphocyte 9 % (19-41); Metamyelocyte 1 % (0-1); Monocyte 7 % (0-10); Neutrophil-Band 41 % (0-5); Neutrophil-Segmented 41 % (47-70); Total Cells Counted 100 (MANUAL DIFF)
[2020-10-01 07:56] LABS: Platelet Estimate ADEQUATE (ADEQ); Red Cell Morphology NORM C+C NORMAL (NORM C&C)
[2020-10-01 07:57] LABS: Scan Smear per Review Criteria MANUAL DIFF
[2020-10-01 07:58] LABS: Atypical Lymphocyte 1+ %
[2020-10-01 08:00] LABS: Absolute Lymphocyte Count 0.47 X10^3/uL (0.83-4.51); Absolute Neutrophil Count 4.3 X10^3/uL (2.0-7.7); Lymphocyte # 0.47 X10^3/ul (4.0); Neutrophil # 4.26 X10^3/uL (2.7-7.7)
[2020-10-01] MEDS: Insulin Lispro 100 UNIT/ML INSULN.PEN SC ×4 (08:29→20:17)
[2020-10-01] MEDS: Enoxaparin 30 MG/0.3 ML Syringe SC ×2 (08:29→20:13)
[2020-10-01] MEDS: Clopidogrel Bisulfate 75 MG Tablet PO (08:30)
[2020-10-01] MEDS: Famotidine 20 MG Tablet PO (08:30)
[2020-10-01] MEDS: Aspirin 81 MG TAB.CHEW PO (08:30)
[2020-10-01] MEDS: buPROPion 100 MG Tablet PO ×2 (08:30→17:07)
[2020-10-01] MEDS: dexAMETHasone 10 MG/ML Vial 6 MG IV (08:31)
[2020-10-01] MEDS: Azithromycin 250 MG Tablet PO (08:31)
[2020-10-01] MEDS: guaiFENesin 1,200 MG Tablet 1200 MG PO ×2 (08:31→17:07)
--- NOTE | 2020-10-01 08:44 | PN_ITS ---
Subjective: Patient did okay overnight. Patient has remained on AVAPS for most of the time secondary to patient comfort. Oxygen requirements have not increased. Patient did not have a fever overnight, but continues to feel dyspnea at rest. General: Alert, Oriented x3, Cooperative, No apparent distress - On BiPAP therapy, - - Moderate conversational dyspnea. Appears older than stated age. HEENT: Atraumatic, PERRLA, EOMI, Normocephalic, - - No scleral icterus or injection noted Oral: No Gingival or Mucosal Lesions/ Ulcerations, Dry Mucosa Neck: Supple, No JVD, No Nodes, Trachea Midline Lungs: No rhonchi, No wheeze, No rales, Diminished Cardiovascular: Regular rate, Regular Rhythm, Normal S1, Normal S2, No murmurs, No rub noted, No Gallop Abdomen: Bowel Sounds Present, Soft, Non Tender, Non-Distended Extremities: No cyanosis, No edema, Capillary Refill Less than 3 Seconds, Clubbing Skin: - - No change from previous Musculoskeletal: No Tenderness to Palpation of Joints or Extremities Lymphatic: No Cervical, Supraclavicular, or Inguinal Adenopathy Neurological: Cranial nerves II-XII grossly intact, Neuro grossly intact, Motor Exam 5/5 strength throughout Psych/Mental Status: Alert and oriented to time, place, person, mood and affect Vital Signs Temp Pulse Resp BP Pulse Ox 36.2 C L 87 17 109/76 97 10/01/20 08:00 10/01/20 08:00 10/01/20 08:00 10/01/20 08:00 10/01/20 08:00 Oxygen Flow Rate (L/min) 4 Oxygen Delivery Method Nasal Cannula Weight: 106.5 kg Body Mass Index (BMI) 31.7 Intake and Output for Last 24 Hours 09/29/20 09/30/20 10/01/20 23:59 23:59 23:59 Intake Total 2937.5 / 2937.5 830.00 / 830.00 150 / 150 Output Total 1625 / 1625 950 / 950 150 / 150 Balance 1312.5 / 1312.5 -120.00 / -120.00 0 / 0 Labs (Last 48 Hours) 09/29/20 09/29/20 09/29/20 13:02 17:58 20:57 WBC RBC Hgb Hct MCV MCH MCHC RDW Std Deviation RDW Coeff of Asael Plt Count MPV Immature Gran % (Auto) Neut % (Auto) Lymph % (Auto) [place] % (Auto) Eos % (Auto) Baso % (Auto) Absolute Neuts (auto) Absolute Lymphs (auto) Total Counted Neutrophils % (Manual) Band Neutrophils % Lymphocytes % (Manual) Monocytes % (Manual) Basophils % (Manual) Metamyelocytes % Nucleated RBC % Diff Path Review Atypical Lymphocytes Platelet Estimate RBC Morphology Sodium Potassium Chloride Carbon Dioxide Anion Gap BUN Creatinine Estim Creat Clear Calc Est GFR (MDRD) Af Amer Est GFR (MDRD) Non-Af BUN/Creatinine Ratio Glucose Calcium Total Bilirubin AST ALT Alkaline Phosphatase Total Protein Albumin Globulin Albumin/Globulin Ratio POC Glucose 147 H 120 H 99 09/30/20 09/30/20 09/30/20 05:51 06:00 06:00 WBC 7.6 RBC 4.17 L Hgb 10.6 L Hct 34.6 L MCV 83.0 MCH 25.4 L MCHC 30.6 L RDW Std Deviation 47.0 H RDW Coeff of Asael 15.5 H Plt Count 327 MPV 10.0 Immature Gran % (Auto) 1.300 H Neut % (Auto) 78.9 H Lymph % (Auto) 10.5 L [place] % (Auto) 9.0 Eos % (Auto) 0.0 Baso % (Auto) 0.3 Absolute Neuts (auto) 6.0 Absolute Lymphs (auto) 0.80 L Total Counted Neutrophils % (Manual) Band Neutrophils % Lymphocytes % (Manual) Monocytes % (Manual) Basophils % (Manual) Metamyelocytes % Nucleated RBC % 0 Diff Path Review Atypical Lymphocytes Platelet Estimate RBC Morphology Sodium 137 Potassium 3.5 Chloride 99 Carbon Dioxide 34.0 H Anion Gap 4 L BUN 20 H Creatinine 1.20 Estim Creat Clear Calc 69.72 Est GFR (MDRD) Af Amer 79 Est GFR (MDRD) Non-Af 65 BUN/Creatinine Ratio 16.7 Glucose 80 Calcium 8.3 L Total Bilirubin 0.50 AST 139 H ALT 60 Alkaline Phosphatase 65 Total Protein 5.9 L Albumin 2.0 L Globulin 3.9 Albumin/Globulin Ratio 0.5 L POC Glucose 86 09/30/20 09/30/20 09/30/20 11:21 17:08 20:39 WBC RBC Hgb Hct MCV MCH MCHC RDW Std Deviation RDW Coeff of Asael Plt Count MPV Immature Gran % (Auto) Neut % (Auto) Lymph % (Auto) [place] % (Auto) Eos % (Auto) Baso % (Auto) Absolute Neuts (auto) Absolute Lymphs (auto) Total Counted Neutrophils % (Manual) Band Neutrophils % Lymphocytes % (Manual) Monocytes % (Manual) Basophils % (Manual) Metamyelocytes % Nucleated RBC % Diff Path Review Atypical Lymphocytes Platelet Estimate RBC Morphology Sodium Potassium Chloride Carbon Dioxide Anion Gap BUN Creatinine Estim Creat Clear Calc Est GFR (MDRD) Af Amer Est GFR (MDRD) Non-Af BUN/Creatinine Ratio Glucose Calcium Total Bilirubin AST ALT Alkaline Phosphatase Total Protein Albumin Globulin Albumin/Globulin Ratio POC Glucose 84 114 H 135 H 10/01/20 10/01/20 05:10 05:10 WBC 5.2 RBC 4.41 L Hgb 11.0 L Hct 37.2 L MCV 84.4 MCH 24.9 L MCHC 29.6 L RDW Std Deviation 48.1 H RDW Coeff of Asael 15.8 H Plt Count 362 MPV 10.3 Immature Gran % (Auto) PHOTOGRAPHIC SUPERVISOR Neut % (Auto) PHOTOGRAPHIC SUPERVISOR Lymph % (Auto) PHOTOGRAPHIC SUPERVISOR [place] % (Auto) PHOTOGRAPHIC SUPERVISOR Eos % (Auto) PHOTOGRAPHIC SUPERVISOR Baso % (Auto) PHOTOGRAPHIC SUPERVISOR Absolute Neuts (auto) 4.3 Absolute Lymphs (auto) 0.47 L Total Counted 100 Neutrophils % (Manual) 41 L Band Neutrophils % 41 H Lymphocytes % (Manual) 9 L Monocytes % (Manual) 7 Basophils % (Manual) 1 Metamyelocytes % 1 Nucleated RBC % 0 Diff Path Review May foll Atypical Lymphocytes 1+ Platelet Estimate ADEQUATE RBC Morphology NORM C+C Sodium 137 Potassium 4.1 Chloride 101 Carbon Dioxide 35.0 H Anion Gap 1 L BUN 22 H Creatinine 1.00 Estim Creat Clear Calc 83.67 Est GFR (MDRD) Af Amer 98 Est GFR (MDRD) Non-Af 81 BUN/Creatinine Ratio 22.0 H Glucose 181 H Calcium 8.9 Total Bilirubin 0.30 AST 99 H ALT 65 H Alkaline Phosphatase 76 Total Protein 6.3 L Albumin 2.1 L Globulin 4.2 Albumin/Globulin Ratio 0.5 L POC Glucose Microbiology 09/28/20 18:00 Sputum, Expectorated/Coughed Gram Stain - Final 09/28/20 18:00 Sputum, Expectorated/Coughed Respiratory Culture - Final 09/28/20 05:48 Blood Culture (Wb) #2 - Left Wrist Blood Culture - Preliminary No growth in 48 hours. 09/28/20 05:35 Blood Culture (Wb) - Anticubital Right Blood Culture - Preliminary No growth in 48 hours. Clinical Impression(s) from Imaging Studies Chest X-Ray 09/30/20 20:15 IMPRESSION: Catheter placement. Bilateral pneumonia. Electronically Signed: Josafat Carrasco MD at 21:31 EST , Service support , Medical Necessity - Tobacco Use Smoking Status: Former smoker Assessment/Plan All Active Problems (Last Reviewed 09/28/20 @ 07:[address] Rock Shen MD) SARS (severe acute respiratory syndrome) (Acute) COVID-19 (Acute) Acute kidney injury (Acute) Acute and chronic respiratory failure with hypoxia (Acute) COPD exacerbation (Acute) RECOMMENDATIONS: 1. Supplemental O2 to maintain saturations 88-92% 2. AVAPS with sleep and rescue during the day 3. Defer antibiotics to infectious disease 4. Agree with remdesivir and Decadron 5. Increase activity as tolerated IMPRESSIONS: 1. Acute on chronic combined respiratory failure Patient is well-known to me. Patient is on his baseline 4 L nasal cannula, but is reporting to be on day 4 of symptoms and has tested positive for rhinovirus and COVID-19. Patient does have advanced COPD and has been considered for lung transplantation in the past. Continue with bronchodilators, Decadron and remdesivir. Some concern the patient does not have the respiratory reserve to tolerate high fevers. Would be proactive in treating fever. Patient with significant bandemia noted on labs today. No fever has been noted overnight, but patient is being treated aggressively with Tylenol. Do anticipate patient may decompensate over the next 24 to 48 hours. Patient is clear that he is a full code and wishes to be intubated if necessary. Oxygenation has not changed on BiPAP, but patient has been relatively dependent over the last 24 hours. 2. Acute kidney injury Likely prerenal in etiology. Improving. Patient has received some IV fluids, but these will likely need to be discontinued in the next 24 hours to avoid respiratory complications. No indication for renal replacement therapy at this time. 3. Coronary artery disease status post PTCA/anxiety/hyperlipidemia/hypertension Complicates care, management, recovery and prognosis. Continue home medications as indicated. Inpatient E&M: 21572 Subs Hosp L3
--- NOTE | 2020-10-01 09:28 | PCM.PN.HOSP ---
Patient Problems: Active and Suspected Problems (Last Reviewed 09/28/20 @ 07:[address] Rock Shen MD) SARS (severe acute respiratory syndrome) (Acute) COVID-19 (Acute) Acute kidney injury (Acute) Acute and chronic respiratory failure with hypoxia (Acute) COPD exacerbation (Acute) Subjective: No issues overnight. Managed to wear his BiPAP throughout the night Vitals/I&O's: Vital Signs Temp Pulse Resp BP Pulse Ox 97.2 F L 84 13 101/69 94 10/01/20 08:00 10/01/20 09:00 10/01/20 09:00 10/01/20 09:00 10/01/20 09:00 Oxygen Flow Rate (L/min) 4 Oxygen Delivery Method Nasal Cannula Weight: 234 lb 12.677 oz Body Mass Index (BMI) 31.7 Intake and Output for Last 24 Hours 09/29/20 09/30/20 10/01/20 23:59 23:59 23:59 Intake Total 2937.5 / 2937.5 830.00 / 830.00 200 / 200 Output Total 1625 / 1625 950 / 950 150 / 150 Balance 1312.5 / 1312.5 -120.00 / -120.00 50 / 50 General: Alert, Oriented x3, Cooperative HEENT: Atraumatic, PERRLA, EOMI, Normocephalic Oral: Dry mucosa Neck: Supple, No JVD Lungs: Normal air movement, Diminished, no rhonchi, Wheezes Cardiovascular: Regular rate, Regular Rhythm, Normal S1, Normal S2, No murmurs Abdomen: Soft, Non Tender, Non-Distended, No Hepato-splenomegaly Extremities: No edema, Capillary Refill Less than 3 Seconds Skin: No rashes, No breakdown Neurological: Neuro grossly intact, Sensory exam intact to light touch and pain Psych/Mental Status: Normal Affect, Appropriate Microbiology Past 72 Hours 09/28/20 18:00 Sputum, Expectorated/Coughed Gram Stain - Final 09/28/20 18:00 Sputum, Expectorated/Coughed Respiratory Culture - Final 09/28/20 05:48 Blood Culture (Wb) #2 - Left Wrist Blood Culture - Preliminary No growth in 48 hours. 09/28/20 05:35 Blood Culture (Wb) - Anticubital Right Blood Culture - Preliminary No growth in 48 hours. 09/28/20 08:20 Mucosa - Nose Respiratory Panel (PCR) - Final Rhinovirus 09/28/20 05:35 Mucosa - Nose SARS-CoV-2 Antigen (Rapid) - Final SARS-CoV-2 (COVID 19) Laboratory Results 09/30/20 11:21: POC Glucose 84 09/30/20 17:08: POC Glucose 114 H 09/30/20 20:39: POC Glucose 135 H 10/01/20 05:10: WBC 5.2, RBC 4.41 L, Hgb 11.0 L, Hct 37.2 L, MCV 84.4, MCH 24.9 L, MCHC 29.6 L, RDW Std Deviation 48.1 H, RDW Coeff of Asael 15.8 H, Plt Count 362, MPV 10.3, Immature Gran % (Auto) LEAD TECHNICAL ARCHITECT, Neut % (Auto) LEAD TECHNICAL ARCHITECT, Lymph % (Auto) LEAD TECHNICAL ARCHITECT, [place] % (Auto) LEAD TECHNICAL ARCHITECT, Eos % (Auto) LEAD TECHNICAL ARCHITECT, Baso % (Auto) LEAD TECHNICAL ARCHITECT, Absolute Neuts (auto) 4.3, Absolute Lymphs (auto) 0.47 L, Total Counted 100, Neutrophils % (Manual) 41 L, Band Neutrophils % 41 H, Lymphocytes % (Manual) 9 L, Monocytes % (Manual) 7, Basophils % (Manual) 1, Metamyelocytes % 1, Nucleated RBC % 0, Diff Path Review May foll, Atypical Lymphocytes 1+, Platelet Estimate ADEQUATE, RBC Morphology NORM C+C 10/01/20 05:10: Sodium 137, Potassium 4.1, Chloride 101, Carbon Dioxide 35.0 H, Anion Gap 1 L, BUN 22 H, Creatinine 1.00, Estim Creat Clear Calc 83.67, Est GFR (MDRD) Af Amer 98, Est GFR (MDRD) Non-Af 81, BUN/Creatinine Ratio 22.0 H, Glucose 181 H, Calcium 8.9, Total Bilirubin 0.30, AST 99 H, ALT 65 H, Alkaline Phosphatase 76, Total Protein 6.3 L, Albumin 2.1 L, Globulin 4.2, Albumin/Globulin Ratio 0.5 L Current Medications Acetaminophen (Acetaminophen 325 Mg Tablet) 650 mg PO Q6H PRN PRN PRN Reason: Pain Score 1-10/Temp > 100.7 F Last Admin: 09/30/20 20:20 Dose: 650 mg Documented by: Albuterol Sulfate (Albuterol Sulfate 8gm 60 Dose Inhaler (Floor Use-With Spacer)) 1 puff INHALATION Q4HWA.RT ON LICENSE OF [facility] Last Admin: 09/30/20 20:18 Dose: 1 puff Documented by: Albuterol Sulfate (Albuterol Sulfate 8gm 60 Dose Inhaler (Floor Use-With Spacer)) 1 puff INHALATION Q4H PRN PRN PRN Reason: Dyspnea, SOB Last Admin: 10/01/20 06:33 Dose: 1 puff Documented by: Aspirin (Aspirin 81 Mg Tab.Chew) 81 mg PO DAILY ON LICENSE OF [facility] Last Admin: 10/01/20 08:30 Dose: 81 mg Documented by: Atorvastatin Calcium (Atorvastatin Calcium 40 Mg Tablet) 40 mg PO DINNER ON LICENSE OF [facility] Last Admin: 09/30/20 17:13 Dose: 40 mg Documented by: Azithromycin (Azithromycin 250 Mg Tablet) 250 mg PO MoWeFr@1000 ON LICENSE OF [facility] Last Admin: 10/01/20 08:31 Dose: 250 mg Documented by: Bupropion HCl (Bupropion 100 Mg Tablet) 100 mg PO BID@1000,1700 ON LICENSE OF [facility] Last Admin: 10/01/20 08:30 Dose: 100 mg Documented by: Cholecalciferol (Cholecalciferol (Vit D3) 1,000 Unit (25mcg)) 1,000 unit PO DAILY ON LICENSE OF [facility] Last Admin: 10/01/20 08:31 Dose: 1,000 unit Documented by: Clopidogrel Bisulfate (Clopidogrel Bisulfate 75 Mg Tablet) 75 mg PO DAILY ON LICENSE OF [facility] Last Admin: 10/01/20 08:30 Dose: 75 mg Documented by: Dexamethasone Sodium Phosphate (Dexamethasone 10 Mg/Ml Vial) 6 mg IV DAILY ON LICENSE OF [facility] Last Admin: 10/01/20 08:31 Dose: 6 mg Documented by: Dextrose (Dextrose 50%-Water 25 Gm/50 Ml Disp.Syrin) 0 gm IV X1 PRN; Protocol PRN Reason: Hypoglycemia Enoxaparin Sodium (Enoxaparin 30 Mg/0.3 Ml Syringe) 30 mg SC BID ON LICENSE OF [facility] Last Admin: 10/01/20 08:29 Dose: 30 mg Documented by: Famotidine (Famotidine 20 Mg Tablet) 20 mg PO DAILY ON LICENSE OF [facility] Last Admin: 10/01/20 08:30 Dose: 20 mg Documented by: Ferrous Sulfate (Ferrous Sulfate 325 Mg Tablet) 325 mg PO DINNER ON LICENSE OF [facility] Last Admin: 09/30/20 17:13 Dose: 325 mg Documented by: Glucagon (Glucagon 1 Mg/Ml Syringe) 1 mg IM .X1 PRN PRN Reason: Hypoglycemia Guaifenesin (Guaifenesin 1,200 Mg Tablet) 1,200 mg PO BID@1000,1700 ON LICENSE OF [facility] Last Admin: 10/01/20 08:31 Dose: 1,200 mg Documented by: Piperacillin Sod/Tazobactam (Sod 3.375 gm/ Sodium Chloride) 50 mls @ 12.5 mls/hr IV Q8 ON LICENSE OF [facility] Last Infusion: 10/01/20 09:11 Dose: Infused Documented by: Remdesivir 100 mg/ Sodium (Chloride) 250 mls @ 125 mls/hr IV DAILY ON LICENSE OF [facility] Stop: 10/02/20 11:59 Last Infusion: 09/30/20 22:44 Dose: Infused Documented by: Insulin Human Lispro (Insulin Lispro 100 Unit/Ml Insuln.Pen) 0 unit SC ACHS ON LICENSE OF [facility]; Protocol Last Admin: 10/01/20 08:29 Dose: 2 u Documented by: Melatonin (Melatonin 3 Mg Tablet) 3 mg PO QHS PRN PRN PRN Reason: INSOMNIA Last Admin: 09/30/20 22:57 Dose: 3 mg Documented by: Metoprolol Tartrate (Metoprolol Tartrate 25 Mg Tablet) 25 mg PO BID ON LICENSE OF [facility] Last Admin: 09/30/20 20:20 Dose: 25 mg Documented by: Miscellaneous Information (Inhaler, Assist Devices 1 Each Spacer) 1 each INHALATION Q4HWA ON LICENSE OF [facility] Last Admin: 10/01/20 08:33 Dose: 1 each Documented by: Multivitamins (Multivitamins,Therapeutic Tablet) 1 tablet PO DINNER ON LICENSE OF [facility] Last Admin: 09/30/20 17:13 Dose: 1 tablet Documented by: Nutritional Formula (Lactose Free) (Ensure Enlive 120 Ml Liquid) 120 ml PO 4X/DAY ON LICENSE OF [facility] Last Admin: 10/01/20 08:28 Dose: 120 ml Documented by: Ondansetron HCl (Ondansetron 4 Mg/2 Ml Vial) 4 mg IV Q8H PRN PRN PRN Reason: NAUSEA/VOMITING STROKE Vital Signs/Narrative: Vital Signs Temp Pulse Resp BP Pulse Ox 10/01/20 09:00 84 13 101/69 94 10/01/20 08:00 97.2 F L 87 17 109/76 97 12/23/20 07:18 70 28 H 97 10/01/20 07:00 67 21 H 101/74 95 10/01/20 06:50 68 10/01/20 06:00 86 21 H 89/63 L 95 Medical Necessity - Tobacco Use Smoking Status: Former smoker Assessment/Plan All Active Problems (Last Reviewed 09/28/20 @ 07:[address] Rock Shen MD) SARS (severe acute respiratory syndrome) (Acute) COVID-19 (Acute) Acute kidney injury (Acute) Acute and chronic respiratory failure with hypoxia (Acute) COPD exacerbation (Acute) 1. 1. Acute on chronic respiratory failure secondary to COVID-19 pneumonia/acute exacerbation of COPD/ANNETTE -He is currently been going between nasal cannula and AVAPS. -Continue with Decadron, remdesivir, inhalers -His FEV1 is less than 20% of predicted which is concerning for his prognosis -Continue to monitor renal function -He is on azithromycin for chronic control of his COPD as well as chronic prednisone 2. CAD status post stent/chronic diastolic CHF/HTN/HLD -We will continue to monitor his blood pressures, he was a little hypotensive when he first presented to the hospital -Continue with his metoprolol but will hold off on Lasix and provided only when necessary -Continue with aspirin and Plavix 3. DM 2 -We will hold his home metformin and place him on insulin -Accu-Cheks AC at bedtime, will adjust insulin as necessary given his steroid usage 4. Chronic iron deficiency anemia -Hemoglobin stable -Continue with iron supplementation 5. Anxiety/depression -Stable -Continue with Wellbutrin DVT: Lovenox Inpatient E&M: 43486 Subs Hosp L2
[2020-10-01] MEDS: Metoprolol Tartrate 25 MG Tablet PO ×2 (11:03→20:12)
[2020-10-01 14:06] LABS: Bedside Glucose 233 mg/dL (70-110)
[2020-10-01 14:41] LABS: Pathologist Review Reviewed
[2020-10-01] MEDS: Ferrous Sulfate 325 MG Tablet PO (17:07)
[2020-10-01] MEDS: Atorvastatin Calcium 40 MG Tablet PO (17:07)
[2020-10-01] MEDS: Multivitamins,Therapeutic Tablet 1 TABLET PO (17:07)
[2020-10-01 18:10] LABS: Bedside Glucose 150 mg/dL (70-110)
[2020-10-01] MEDS: Acetaminophen 325 MG Tablet 650 MG PO (20:12)
[2020-10-01 20:26] LABS: Bedside Glucose 224 mg/dL (70-110)
[2020-10-01] MEDS: MELATONIN 3 MG TABLET PO (22:50)
[2020-10-02] VITALS (30 sets, daily range): BP systolic 81–109; BP diastolic 46–89; PULSE 61–81; RESP 12–30; TEMP 36.2–36.7; O2SAT 91–99
[2020-10-02] MEDS: INHALER, ASSIST DEVICES 1 EACH SPACER INHALATION ×4 (05:18→20:32)
--- NOTE | 2020-10-02 05:51 | PCM.PN.INT ---
Subjective: The patient was seen and examined at the bedside this morning. Events from the last 24 hours have been reviewed. The patient is currently afebrile, hemodynamically stable and maintaining appropriate oxygen saturations on his baseline 4 L/min supplemental oxygen requirement. The patient has been tolerant of AVAPS nightly. The patient is currently documented to be overall net +3.6 L for the hospital admission. Objective: The patient's most recent lab work, culture data and imaging studies have all been personally reviewed. Coronavirus PCR was positive on September 28. Respiratory viral panel was positive for rhinovirus. Blood cultures have shown no growth to date. General: Alert, Cooperative, No apparent distress HEENT: Atraumatic, PERRLA, Normocephalic Oral: No Gingival or Mucosal Lesions/ Ulcerations Neck: Supple, No Nodes, Trachea Midline Lungs: No rhonchi, No wheeze, No rales, Diminished Cardiovascular: Regular rate, Regular Rhythm, Normal S1, Normal S2, No murmurs Abdomen: Bowel Sounds Present, Soft, Non Tender, Obese Extremities: No cyanosis, No edema, Clubbing Skin: - - No significant change from previous Musculoskeletal: No Tenderness to Palpation of Joints or Extremities Lymphatic: No Cervical, Supraclavicular, or Inguinal Adenopathy Neurological: Cranial nerves II-XII grossly intact, Neuro grossly intact Psych/Mental Status: Alert and oriented to time, place, person, mood and affect Vital Signs Temp Pulse Resp BP Pulse Ox 97.8 F 69 21 H 81/46 L 93 10/02/20 04:00 10/02/20 04:00 10/02/20 04:00 10/02/20 04:00 10/02/20 04:00 Oxygen Flow Rate (L/min) 4 Oxygen Delivery Method Bi-pap Weight: 235 lb 10.786 oz Body Mass Index (BMI) 31.7 Intake and Output for Last 24 Hours 09/30/20 10/01/20 10/02/20 23:59 23:59 23:59 Intake Total 830.00 / 830.00 1220 / 1220 50 / 50 Output Total 950 / 950 950 / 950 250 / 250 Balance -120.00 / -120.00 270 / 270 -200 / -200 Labs (Last 48 Hours) 09/30/20 09/30/20 09/30/20 05:51 06:00 06:00 WBC 7.6 RBC 4.17 L Hgb 10.6 L Hct 34.6 L MCV 83.0 MCH 25.4 L MCHC 30.6 L RDW Std Deviation 47.0 H RDW Coeff of Asael 15.5 H Plt Count 327 MPV 10.0 Immature Gran % (Auto) 1.300 H Neut % (Auto) 78.9 H Lymph % (Auto) 10.5 L [place] % (Auto) 9.0 Eos % (Auto) 0.0 Baso % (Auto) 0.3 Absolute Neuts (auto) 6.0 Absolute Lymphs (auto) 0.80 L Total Counted Neutrophils % (Manual) Band Neutrophils % Lymphocytes % (Manual) Monocytes % (Manual) Basophils % (Manual) Metamyelocytes % Nucleated RBC % 0 Diff Path Review Atypical Lymphocytes Platelet Estimate RBC Morphology Sodium 137 Potassium 3.5 Chloride 99 Carbon Dioxide 34.0 H Anion Gap 4 L BUN 20 H Creatinine 1.20 Estim Creat Clear Calc 69.72 Est GFR (MDRD) Af Amer 79 Est GFR (MDRD) Non-Af 65 BUN/Creatinine Ratio 16.7 Glucose 80 Calcium 8.3 L Total Bilirubin 0.50 AST 139 H ALT 60 Alkaline Phosphatase 65 Total Protein 5.9 L Albumin 2.0 L Globulin 3.9 Albumin/Globulin Ratio 0.5 L POC Glucose 86 09/30/20 09/30/20 09/30/20 11:21 17:08 20:39 WBC RBC Hgb Hct MCV MCH MCHC RDW Std Deviation RDW Coeff of Asael Plt Count MPV Immature Gran % (Auto) Neut % (Auto) Lymph % (Auto) [place] % (Auto) Eos % (Auto) Baso % (Auto) Absolute Neuts (auto) Absolute Lymphs (auto) Total Counted Neutrophils % (Manual) Band Neutrophils % Lymphocytes % (Manual) Monocytes % (Manual) Basophils % (Manual) Metamyelocytes % Nucleated RBC % Diff Path Review Atypical Lymphocytes Platelet Estimate RBC Morphology Sodium Potassium Chloride Carbon Dioxide Anion Gap BUN Creatinine Estim Creat Clear Calc Est GFR (MDRD) Af Amer Est GFR (MDRD) Non-Af BUN/Creatinine Ratio Glucose Calcium Total Bilirubin AST ALT Alkaline Phosphatase Total Protein Albumin Globulin Albumin/Globulin Ratio POC Glucose 84 114 H 135 H 10/01/20 10/01/20 10/01/20 05:10 05:10 10:59 WBC 5.2 RBC 4.41 L Hgb 11.0 L Hct 37.2 L MCV 84.4 MCH 24.9 L MCHC 29.6 L RDW Std Deviation 48.1 H RDW Coeff of Asael 15.8 H Plt Count 362 MPV 10.3 Immature Gran % (Auto) ALIGNING CHECKER Neut % (Auto) ALIGNING CHECKER Lymph % (Auto) ALIGNING CHECKER [place] % (Auto) ALIGNING CHECKER Eos % (Auto) ALIGNING CHECKER Baso % (Auto) ALIGNING CHECKER Absolute Neuts (auto) 4.3 Absolute Lymphs (auto) 0.47 L Total Counted 100 Neutrophils % (Manual) 41 L Band Neutrophils % 41 H Lymphocytes % (Manual) 9 L Monocytes % (Manual) 7 Basophils % (Manual) 1 Metamyelocytes % 1 Nucleated RBC % 0 Diff Path Review Reviewed Atypical Lymphocytes 1+ Platelet Estimate ADEQUATE RBC Morphology NORM C+C Sodium 137 Potassium 4.1 Chloride 101 Carbon Dioxide 35.0 H Anion Gap 1 L BUN 22 H Creatinine 1.00 Estim Creat Clear Calc 83.67 Est GFR (MDRD) Af Amer 98 Est GFR (MDRD) Non-Af 81 BUN/Creatinine Ratio 22.0 H Glucose 181 H Calcium 8.9 Total Bilirubin 0.30 AST 99 H ALT 65 H Alkaline Phosphatase 76 Total Protein 6.3 L Albumin 2.1 L Globulin 4.2 Albumin/Globulin Ratio 0.5 L POC Glucose 233 H 10/01/20 10/01/20 17:04 20:16 WBC RBC Hgb Hct MCV MCH MCHC RDW Std Deviation RDW Coeff of Asael Plt Count MPV Immature Gran % (Auto) Neut % (Auto) Lymph % (Auto) [place] % (Auto) Eos % (Auto) Baso % (Auto) Absolute Neuts (auto) Absolute Lymphs (auto) Total Counted Neutrophils % (Manual) Band Neutrophils % Lymphocytes % (Manual) Monocytes % (Manual) Basophils % (Manual) Metamyelocytes % Nucleated RBC % Diff Path Review Atypical Lymphocytes Platelet Estimate RBC Morphology Sodium Potassium Chloride Carbon Dioxide Anion Gap BUN Creatinine Estim Creat Clear Calc Est GFR (MDRD) Af Amer Est GFR (MDRD) Non-Af BUN/Creatinine Ratio Glucose Calcium Total Bilirubin AST ALT Alkaline Phosphatase Total Protein Albumin Globulin Albumin/Globulin Ratio POC Glucose 150 H 224 H Microbiology 09/28/20 18:00 Sputum, Expectorated/Coughed Gram Stain - Final 09/28/20 18:00 Sputum, Expectorated/Coughed Respiratory Culture - Final 09/28/20 05:48 Blood Culture (Wb) #2 - Left Wrist Blood Culture - Preliminary No growth in 48 hours. 09/28/20 05:35 Blood Culture (Wb) - Anticubital Right Blood Culture - Preliminary No growth in 48 hours. Clinical Impression(s) from Imaging Studies Chest X-Ray 09/28/20 05:23 IMPRESSION: There are new bilateral perihilar pulmonary infiltrates. The lungs are well expanded There is no demonstrated pleural abnormality. Normal size heart. Electronically Signed: Mario Alberto Sandoval MD at 6:16 EST , Service support , Chest X-Ray 09/30/20 20:15 IMPRESSION: Catheter placement. Bilateral pneumonia. Electronically Signed: Josafat Carrasco MD at 21:31 EST , Service support , Medical Necessity - Tobacco Use Smoking Status: Former smoker Assessment/Plan All Active Problems (Last Reviewed 09/28/20 @ 07:[address] Rock Shen MD) SARS (severe acute respiratory syndrome) (Acute) COVID-19 (Acute) Acute kidney injury (Acute) Acute and chronic respiratory failure with hypoxia (Acute) COPD exacerbation (Acute) RECOMMENDATIONS: 1. Continue supplemental oxygen at 4 L/min per baseline requirement. Continue AVAPS nightly. 2. Continue bronchodilator therapy. 3. Continue antimicrobials, Decadron and remdesivir to complete treatment course. Continue to monitor liver and renal function. 4. Encourage incentive spirometer use and mobilize patient as tolerated. IMPRESSIONS: 1. Acute on chronic combined respiratory failure secondary to combined COVID-19 pneumonia and rhinovirus upper respiratory infection Plan to continue current supportive measures with supplemental oxygen and noninvasive positive pressure ventilatory support on a nightly basis. The patient is currently maintaining appropriate oxygen saturations on his baseline 4 L/min requirement. He does have a history of frequent COPD exacerbations. Accordingly, the patient will be continued on antimicrobials, remdesivir and Decadron. Continue to monitor liver and renal function accordingly. Encourage incentive spirometer use and mobilize patient as tolerated. 2. Acute kidney injury Resolved. Likely prerenal in etiology. Creatinine has improved with fluid hydration. Continue to monitor urine output. No current indication for renal replacement therapy. 3. Coronary artery disease status post PTCA/anxiety/hyperlipidemia/hypertension Complicates care, management, recovery and prognosis. Continue home medications as indicated. This note was generated with [employer] dictation software. It may contain incorrect words, spelling, and punctuation that were not noted in checking the note before signing. Inpatient E&M: 32140 Subs Hosp L3
[2020-10-02 08:02] LABS: Absolute Lymphocyte Count 1.36 X10^3/uL (0.83-4.51); Absolute Neutrophil Count 6.3 X10^3/uL (2.0-7.7); Basophil# 0.02 X10^3/uL; Basophil% 0.2 % (0-1); Eosinophil# 0.04 X10^3/uL; Eosinophils% 0.5 % (0-5); Hematocrit 33.8 % (40-54); Hemoglobin 9.9 g/dL (13.0-16.5); Lymphocyte # 1.36 X10^3/ul (4.0); Lymphocyte % 15.5 % (19-41); Mean Corp Hgb Conc 29.3 g/dL (32-36); Mean Corpuscular Hgb 24.6 pg (27.0-32.0); Mean Corpuscular Volume 83.9 fL (80-94); Mean Platelet Vol. 10.1 fl (6.2-12.0); Monocyte# 0.89 X10^3/uL; Monocyte% 10.1 % (0-10); NRBC Flagged by Analyzer 0 % (0-5); Neutrophil # 6.33 X10^3/uL (2.7-7.7); POSITIVE MORPHOLOGY YES; Platelet Count 407 K/mm3 (150-450); RBC Distribution Width CV 15.3 % (11.6-14.6); Red Blood Count 4.03 M/mm3 (4.6-6.2); White Blood Count 8.8 K/mm3 (4.4-11.0)
[2020-10-02 08:14] LABS: Differential Indicated SCAN CRITERIA MET
[2020-10-02 08:19] LABS: ALB/GLOB Ratio 0.5 RATIO (0.9-2.4); AST(SGOT) 70 U/L (15-37); Alanine Aminotransfer ALT/SGPT 66 U/L (16-61); Alkaline Phosphatase 61 U/L (45-117); Anion Gap 1 (5-15); BUN 24 mg/dL (7-18); BUN/Creat Ratio 22.6 RATIO (10-20); Calcium,Total 8.6 mg/dL (8.5-10.1); Chloride 100 mmol/L (98-107); Creatinine, Serum 1.06 mg/dL (0.70-1.30); EST Glomerular Filtration Rate 76 mL/min (>60); Est Glom Filt Rate - Afr Amer 91 mL/min (>60); Estimated Creatinine Clearance 77.94 ml/min; Globulin 3.8 g/dL (2.2-4.2); Glucose 129 mg/dL (74-106); Potassium 3.8 mmol/L (3.5-5.1); Protein, Total 5.8 g/dL (6.4-8.2); Sodium Level 138 mmol/L (136-145)
[2020-10-02] MEDS: dexAMETHasone 10 MG/ML Vial 6 MG IV (08:22)
[2020-10-02] MEDS: Enoxaparin 30 MG/0.3 ML Syringe SC ×2 (08:22→20:31)
[2020-10-02] MEDS: guaiFENesin 1,200 MG Tablet 1200 MG PO ×2 (08:23→16:55)
[2020-10-02] MEDS: Clopidogrel Bisulfate 75 MG Tablet PO (08:23)
[2020-10-02] MEDS: Aspirin 81 MG TAB.CHEW PO (08:23)
[2020-10-02] MEDS: Famotidine 20 MG Tablet PO (08:23)
[2020-10-02] MEDS: buPROPion 100 MG Tablet PO ×2 (08:24→16:55)
[2020-10-02] MEDS: Acetaminophen 325 MG Tablet 650 MG PO (08:24)
[2020-10-02] MEDS: Metoprolol Tartrate 25 MG Tablet PO ×2 (08:24→20:31)
[2020-10-02 08:29] LABS: Atypical Lymphocyte RARE %; Platelet Estimate ADEQUATE (ADEQ); Red Cell Morphology NORM C+C NORMAL (NORM C&C)
[2020-10-02 10:36] LABS: Bedside Glucose 104 mg/dL (70-110)
[2020-10-02] MEDS: Insulin Lispro 100 UNIT/ML INSULN.PEN SC ×2 (11:08→16:55)
--- NOTE | 2020-10-02 11:33 | CASEMGMT ---
SW participated in ICU rounds this morning. SW then spoke w/pt on the phone in regard to discharge plan. Pt states plans to return home and does think he will be able to return home when ready. Pt states that he was able to get up on his own yesterday. SW explained that we will keep following along and will follow up Tuesday to make sure he has what he needs when he is ready for discharge. Pt states understanding. SW/CM will continue to follow. JIGNESH Levin
[2020-10-02 14:30] LABS: Bedside Glucose 179 mg/dL (70-110)
--- NOTE | 2020-10-02 16:37 | PN_ITS ---
Patient Problems: Active and Suspected Problems (Last Reviewed 09/28/20 @ 07:[address] Rock Shen MD) SARS (severe acute respiratory syndrome) (Acute) COVID-19 (Acute) Acute kidney injury (Acute) Acute and chronic respiratory failure with hypoxia (Acute) COPD exacerbation (Acute) Subjective: No issues overnight, he has become more comfortable wearing his BiPAP overnight. He is maintaining throughout the day his 4 L nasal cannula which is his home oxygen requirement. Vitals/I&O's: Vital Signs Temp Pulse Resp BP Pulse Ox 97.2 F L 68 20 H 99/64 97 10/02/20 16:00 10/02/20 16:00 10/02/20 15:00 10/02/20 16:00 10/02/20 16:00 Oxygen Flow Rate (L/min) 4 Oxygen Delivery Method Nasal Cannula Weight: 235 lb 10.786 oz Body Mass Index (BMI) 31.7 Intake and Output for Last 24 Hours 09/30/20 10/01/20 10/02/20 23:59 23:59 23:59 Intake Total 830.00 / 830.00 1220 / 1220 340 / 340 Output Total 950 / 950 950 / 950 850 / 850 Balance -120.00 / -120.00 270 / 270 -510 / -510 General: Alert, Oriented x3, Cooperative HEENT: Atraumatic, PERRLA, EOMI, Normocephalic Oral: Dry mucosa Neck: Supple, No JVD Lungs: Normal air movement, Diminished, no rhonchi, Wheezes Cardiovascular: Regular rate, Regular Rhythm, Normal S1, Normal S2, No murmurs Abdomen: Soft, Non Tender, Non-Distended, No Hepato-splenomegaly Extremities: No edema, Capillary Refill Less than 3 Seconds Skin: No rashes, No breakdown Neurological: Neuro grossly intact, Sensory exam intact to light touch and pain Psych/Mental Status: Normal Affect, Appropriate Microbiology Past 72 Hours 09/28/20 18:00 Sputum, Expectorated/Coughed Gram Stain - Final 09/28/20 18:00 Sputum, Expectorated/Coughed Respiratory Culture - Final 09/28/20 05:48 Blood Culture (Wb) #2 - Left Wrist Blood Culture - Preliminary No growth in 48 hours. 09/28/20 05:35 Blood Culture (Wb) - Anticubital Right Blood Culture - Preliminary No growth in 48 hours. Laboratory Results 10/01/20 17:04: POC Glucose 150 H 10/01/20 20:16: POC Glucose 224 H 10/02/20 07:00: WBC 8.8, RBC 4.03 L, Hgb 9.9 L, Hct 33.8 L, MCV 83.9, MCH 24.6 L , MCHC 29.3 L, RDW Std Deviation 47.0 H, RDW Coeff of Asael 15.3 H, Plt Count 407, MPV 10.1, Immature Gran % (Auto) 1.700 H, Neut % (Auto) 72.0 H, Lymph % (Auto) 15.5 L, [place] % (Auto) 10.1 H, Eos % (Auto) 0.5, Baso % (Auto) 0.2, Absolute Neuts (auto) 6.3, Absolute Lymphs (auto) 1.36, Nucleated RBC % 0, Differential Comment , Atypical Lymphocytes RARE, Platelet Estimate ADEQUATE, RBC Morphology NORM C+C 10/02/20 07:00: Sodium 138, Potassium 3.8, Chloride 100, Carbon Dioxide 37.0 H, Anion Gap 1 L, BUN 24 H, Creatinine 1.06, Estim Creat Clear Calc 77.94, Est GFR (MDRD) Af Amer 91, Est GFR (MDRD) Non-Af 76, BUN/Creatinine Ratio 22.6 H, Glucose 129 H, Calcium 8.6, Total Bilirubin 0.20, AST 70 H, ALT 66 H, Alkaline Phosphatase 61, Total Protein 5.8 L, Albumin 2.0 L, Globulin 3.8, Albumin/Globulin Ratio 0.5 L 10/02/20 08:19: POC Glucose 104 10/02/20 11:06: POC Glucose 179 H Current Medications Acetaminophen (Acetaminophen 325 Mg Tablet) 650 mg PO Q6H PRN PRN PRN Reason: Pain Score 1-10/Temp > 100.7 F Last Admin: 10/02/20 08:24 Dose: 650 mg Documented by: Albuterol Sulfate (Albuterol Sulfate 8gm 60 Dose Inhaler (Floor Use-With Spacer)) 1 puff INHALATION Q4HWA.RT CATRACHITA Last Admin: 10/02/20 13:59 Dose: 1 puff Documented by: Albuterol Sulfate (Albuterol Sulfate 8gm 60 Dose Inhaler (Floor Use-With Spacer)) 1 puff INHALATION Q4H PRN PRN PRN Reason: Dyspnea, SOB Last Admin: 10/01/20 06:33 Dose: 1 puff Documented by: Aspirin (Aspirin 81 Mg Tab.Chew) 81 mg PO DAILY [facility] Last Admin: 10/02/20 08:23 Dose: 81 mg Documented by: Atorvastatin Calcium (Atorvastatin Calcium 40 Mg Tablet) 40 mg PO DINNER [facility] Last Admin: 10/01/20 17:07 Dose: 40 mg Documented by: Azithromycin (Azithromycin 250 Mg Tablet) 250 mg PO MoWeFr@1000 [facility] Last Admin: 10/01/20 08:31 Dose: 250 mg Documented by: Bupropion HCl (Bupropion 100 Mg Tablet) 100 mg PO BID@1000,1700 [facility] Last Admin: 10/02/20 08:24 Dose: 100 mg Documented by: Cholecalciferol (Cholecalciferol (Vit D3) 1,000 Unit (25mcg)) 1,000 unit PO DAILY [facility] Last Admin: 10/02/20 08:24 Dose: 1,000 unit Documented by: Clopidogrel Bisulfate (Clopidogrel Bisulfate 75 Mg Tablet) 75 mg PO DAILY [facility] Last Admin: 10/02/20 08:23 Dose: 75 mg Documented by: Dexamethasone Sodium Phosphate (Dexamethasone 10 Mg/Ml Vial) 6 mg IV DAILY [facility] Stop: 10/07/20 10:01 Last Admin: 10/02/20 08:22 Dose: 6 mg Documented by: Dextrose (Dextrose 50%-Water 25 Gm/50 Ml Disp.Syrin) 0 gm IV X1 PRN; Protocol PRN Reason: Hypoglycemia Enoxaparin Sodium (Enoxaparin 30 Mg/0.3 Ml Syringe) 30 mg SC BID [facility] Last Admin: 10/02/20 08:22 Dose: 30 mg Documented by: Famotidine (Famotidine 20 Mg Tablet) 20 mg PO DAILY [facility] Last Admin: 10/02/20 08:23 Dose: 20 mg Documented by: Ferrous Sulfate (Ferrous Sulfate 325 Mg Tablet) 325 mg PO DINNER [facility] Last Admin: 10/01/20 17:07 Dose: 325 mg Documented by: Glucagon (Glucagon 1 Mg/Ml Syringe) 1 mg IM .X1 PRN PRN Reason: Hypoglycemia Guaifenesin (Guaifenesin 1,200 Mg Tablet) 1,200 mg PO BID@1000,1700 [facility] Last Admin: 12/24/20 08:23 Dose: 1,200 mg Documented by: Piperacillin Sod/Tazobactam (Sod 3.375 gm/ Sodium Chloride) 50 mls @ 12.5 mls/hr IV Q8 [facility] Last Admin: 10/02/20 13:09 Dose: 12.5 mls/hr Documented by: Sodium Chloride () 250 mls @ 15 mls/hr IV .[id number] PRN PRN Reason: Saline Flush Sodium Chloride () 250 mls @ 15 mls/hr IV .[id number] PRN PRN Reason: Additional IVPB Infusion Insulin Human Lispro (Insulin Lispro 100 Unit/Ml Insuln.Pen) 0 unit SC ACHS [facility]; Protocol Last Admin: 10/02/20 11:08 Dose: 2 u Documented by: Melatonin (Melatonin 3 Mg Tablet) 3 mg PO QHS PRN PRN PRN Reason: INSOMNIA Last Admin: 10/01/20 22:50 Dose: 3 mg Documented by: Metoprolol Tartrate (Metoprolol Tartrate 25 Mg Tablet) 25 mg PO BID [facility] Last Admin: 10/02/20 08:24 Dose: 25 mg Documented by: Miscellaneous Information (Inhaler, Assist Devices 1 Each Spacer) 1 each INHALATION Q4HWA [facility] Last Admin: 10/02/20 15:19 Dose: Not Given Documented by: Multivitamins (Multivitamins,Therapeutic Tablet) 1 tablet PO DINNER [facility] Last Admin: 10/01/20 17:07 Dose: 1 tablet Documented by: Ondansetron HCl (Ondansetron 4 Mg/2 Ml Vial) 4 mg IV Q8H PRN PRN PRN Reason: NAUSEA/VOMITING Sodium Chloride (0.9% Saline Lock 10 Ml Syringe) 10 - 40 ml IV UD PRN PRN Reason: Closed End PICC Flush Sodium Chloride (0.9 % Nacl (Sterile) Posiflush 10 Ml) 10 - 40 ml IV UD PRN PRN Reason: Port access or dressing change Sodium Chloride (0.9% Saline Lock 10 Ml Syringe) 10 - 40 ml IV UD PRN PRN Reason: SALINE FLUSH STROKE Vital Signs/Narrative: Vital Signs Temp Pulse Resp BP Pulse Ox 10/02/20 16:00 97.2 F L 68 99/64 97 12/24/20 15:06 72 10/02/20 15:00 79 20 H 84/56 L 94 10/02/20 14:00 74 22 H 98/62 94 10/02/20 13:00 70 18 87/62 L 95 Medical Necessity - Tobacco Use Smoking Status: Former smoker Assessment/Plan All Active Problems (Last Reviewed 09/28/20 @ 07:[address] Rock Shen MD) SARS (severe acute respiratory syndrome) (Acute) COVID-19 (Acute) Acute kidney injury (Acute) Acute and chronic respiratory failure with hypoxia (Acute) COPD exacerbation (Acute) 1. 1. Acute on chronic respiratory failure secondary to COVID-19 pneumonia/acute exacerbation of COPD/ANNETTE -He is currently been going between nasal cannula and AVAPS. -Continue with Decadron, remdesivir, inhalers -His FEV1 is less than 20% of predicted which is concerning for his prognosis -Continue to monitor renal function -He is on azithromycin for chronic control of his COPD as well as chronic prednisone -Continue Zosyn 2. CAD status post stent/chronic diastolic CHF/HTN/HLD -We will continue to monitor his blood pressures, he was a little hypotensive when he first presented to the hospital -Continue with his metoprolol but will hold off on Lasix and provide only when necessary -Continue with aspirin and Plavix 3. DM 2 -We will hold his home metformin and place him on insulin -Accu-Cheks AC at bedtime, will adjust insulin as necessary given his steroid usage 4. Chronic iron deficiency anemia -Hemoglobin stable -Continue with iron supplementation 5. Anxiety/depression -Stable -Continue with Wellbutrin DVT: Lovenox Inpatient E&M: 62189 Subs Hosp L2
[2020-10-02] MEDS: Multivitamins,Therapeutic Tablet 1 TABLET PO (16:55)
[2020-10-02] MEDS: Ferrous Sulfate 325 MG Tablet PO (16:55)
[2020-10-02] MEDS: Atorvastatin Calcium 40 MG Tablet PO (16:55)
[2020-10-02 18:21] LABS: Bedside Glucose 169 mg/dL (70-110)
[2020-10-02] MEDS: 0.9% Saline Lock 10 ML Syringe IV (20:30)
[2020-10-02 21:36] LABS: Bedside Glucose 139 mg/dL (70-110)
[2020-10-03] VITALS (15 sets, daily range): BP systolic 100–118; BP diastolic 60–69; PULSE 64–75; RESP 12–26; TEMP 36.4–36.6; O2SAT 93–97
[2020-10-03] MEDS: INHALER, ASSIST DEVICES 1 EACH SPACER INHALATION ×3 (06:28→22:27)
[2020-10-03 06:35] LABS: Bedside Glucose 89 mg/dL (70-110)
--- NOTE | 2020-10-03 06:50 | PCM.PN.HOSP ---
Patient Problems: Active and Suspected Problems (Last Reviewed 09/28/20 @ 07:[address] Rock Shen MD) SARS (severe acute respiratory syndrome) (Acute) COVID-19 (Acute) Acute kidney injury (Acute) Acute and chronic respiratory failure with hypoxia (Acute) COPD exacerbation (Acute) Subjective: Patient with no acute events overnight per self and per nursing report with continued use of AVAPS 30% at at bedtime with transition to nasal cannula 4 L during the day which had been his previous home settings. Patient notes ongoing unchanged coughing and dyspnea primarily with exertion but feeling improved since initial presentation. Discussed patient's concern as he has underlying severe COPD following with pulmonary medicine. Patient denies fevers, chills, nausea, emesis, abdominal pain, chest pain or dyspnea. Objective: Physical Examination: General: awake, alert, oriented x 3 and cooperative, seated upright in the medical surgical bed, no acute distress. Skin: normal color, turgor, no icterus, cyanosis. HEENT: AT/NC, EOMI, PERRLA, MMM. Lungs: Diminished breath sounds throughout, greater bases, moderate effort, no rales, ronchi or wheezing. Heart: Regular rate and rhythm; no gallop, rub audible. Abdomen: soft, obese, NTTP, ND, normal BS. Extremities: no cyanosis or clubbing, mild bilateral ankle edema, not markedly pitting. Neurological: patient awake, alert, oriented as noted; cognitive function peers baseline intact; pupils equally reactive to light and accomodation; cranial nerves II-XII grossly normal, moving all 4 extremities, no focal deficits, strength moderately to severely global decrease secondary to acute presentation and underlying comorbidities. Psychiatric: affect appears fatigued otherwise normal, no acute evidence of depressive or anxiety feelings. Vitals/I&O's: Vital Signs Temp Pulse Resp BP Pulse Ox 97.9 F 64 26 H 105/64 93 10/03/20 02:45 10/03/20 04:52 10/03/20 04:52 10/03/20 02:45 10/03/20 04:52 Oxygen Flow Rate (L/min) 5 Oxygen Delivery Method Bi-pap Weight: 236 lb 8.896 oz Body Mass Index (BMI) 31.7 Intake and Output for Last 24 Hours 10/01/20 10/02/20 10/03/20 23:59 23:59 23:59 Intake Total 1220 / 1220 961.25 / 1281.25 457.5 / 457.5 Output Total 950 / 950 1150 / 1300 150 / 150 Balance 270 / 270 -188.75 / -18.75 307.5 / 307.5 Microbiology Past 72 Hours 09/28/20 18:00 Sputum, Expectorated/Coughed Gram Stain - Final 09/28/20 18:00 Sputum, Expectorated/Coughed Respiratory Culture - Final 09/28/20 05:48 Blood Culture (Wb) #2 - Left Wrist Blood Culture - Preliminary No growth in 48 hours. 09/28/20 05:35 Blood Culture (Wb) - Anticubital Right Blood Culture - Preliminary No growth in 48 hours. Laboratory Results 10/02/20 07:00: WBC 8.8, RBC 4.03 L, Hgb 9.9 L, Hct 33.8 L, MCV 83.9, MCH 24.6 L, MCHC 29.3 L, RDW Std Deviation 47.0 H, RDW Coeff of Asael 15.3 H, Plt Count 407, MPV 10.1, Immature Gran % (Auto) 1.700 H, Neut % (Auto) 72.0 H, Lymph % (Auto) 15.5 L, [place] % (Auto) 10.1 H, Eos % (Auto) 0.5, Baso % (Auto) 0.2, Absolute Neuts (auto) 6.3, Absolute Lymphs (auto) 1.36, Nucleated RBC % 0, Differential Comment , Atypical Lymphocytes RARE, Platelet Estimate ADEQUATE, RBC Morphology NORM C+C 10/02/20 07:00: Sodium 138, Potassium 3.8, Chloride 100, Carbon Dioxide 37.0 H, Anion Gap 1 L, BUN 24 H, Creatinine 1.06, Estim Creat Clear Calc 77.94, Est GFR (MDRD) Af Amer 91, Est GFR (MDRD) Non-Af 76, BUN/Creatinine Ratio 22.6 H, Glucose 129 H, Calcium 8.6, Total Bilirubin 0.20, AST 70 H, ALT 66 H, Alkaline Phosphatase 61, Total Protein 5.8 L, Albumin 2.0 L, Globulin 3.8, Albumin/Globulin Ratio 0.5 L 10/02/20 08:19: POC Glucose 104 10/02/20 11:06: POC Glucose 179 H 10/02/20 16:54: POC Glucose 169 H 10/02/20 20:24: POC Glucose 139 H 10/03/20 06:30: POC Glucose 89 Current Medications Acetaminophen (Acetaminophen 325 Mg Tablet) 650 mg PO Q6H PRN PRN PRN Reason: Pain Score 1-10/Temp > 100.7 F Last Admin: 10/02/20 08:24 Dose: 650 mg Documented by: Albuterol Sulfate (Albuterol Sulfate 8gm 60 Dose Inhaler (Floor Use-With Spacer)) 1 puff INHALATION Q4HWA.RT [facility] Last Admin: 10/03/20 06:28 Dose: 1 puff Documented by: Albuterol Sulfate (Albuterol Sulfate 8gm 60 Dose Inhaler (Floor Use-With Spacer)) 1 puff INHALATION Q4H PRN PRN PRN Reason: Dyspnea, SOB Last Admin: 10/01/20 06:33 Dose: 1 puff Documented by: Aspirin (Aspirin 81 Mg Tab.Chew) 81 mg PO DAILY [facility] Last Admin: 10/02/20 08:23 Dose: 81 mg Documented by: Atorvastatin Calcium (Atorvastatin Calcium 40 Mg Tablet) 40 mg PO DINNER [facility] Last Admin: 10/02/20 16:55 Dose: 40 mg Documented by: Azithromycin (Azithromycin 250 Mg Tablet) 250 mg PO MoWeFr@1000 [facility] Last Admin: 10/01/20 08:31 Dose: 250 mg Documented by: Bupropion HCl (Bupropion 100 Mg Tablet) 100 mg PO BID@1000,1700 [facility] Last Admin: 10/02/20 16:55 Dose: 100 mg Documented by: Cholecalciferol (Cholecalciferol (Vit D3) 1,000 Unit (25mcg)) 1,000 unit PO DAILY [facility] Last Admin: 10/02/20 08:24 Dose: 1,000 unit Documented by: Clopidogrel Bisulfate (Clopidogrel Bisulfate 75 Mg Tablet) 75 mg PO DAILY [facility] Last Admin: 10/02/20 08:23 Dose: 75 mg Documented by: Dexamethasone Sodium Phosphate (Dexamethasone 10 Mg/Ml Vial) 6 mg IV DAILY [facility] Stop: 10/07/20 10:01 Last Admin: 10/02/20 08:22 Dose: 6 mg Documented by: Dextrose (Dextrose 50%-Water 25 Gm/50 Ml Disp.Syrin) 0 gm IV X1 PRN; Protocol PRN Reason: Hypoglycemia Enoxaparin Sodium (Enoxaparin 30 Mg/0.3 Ml Syringe) 30 mg SC BID [facility] Last Admin: 10/02/20 20:31 Dose: 30 mg Documented by: Famotidine (Famotidine 20 Mg Tablet) 20 mg PO DAILY [facility] Last Admin: 10/02/20 08:23 Dose: 20 mg Documented by: Ferrous Sulfate (Ferrous Sulfate 325 Mg Tablet) 325 mg PO DINNER [facility] Last Admin: 10/02/20 16:55 Dose: 325 mg Documented by: Glucagon (Glucagon 1 Mg/Ml Syringe) 1 mg IM .X1 PRN PRN Reason: Hypoglycemia Guaifenesin (Guaifenesin 1,200 Mg Tablet) 1,200 mg PO BID@1000,1700 [facility] Last Admin: 10/02/20 16:55 Dose: 1,200 mg Documented by: Piperacillin Sod/Tazobactam (Sod 3.375 gm/ Sodium Chloride) 50 mls @ 12.5 mls/hr IV Q8 [facility] Last Admin: 10/03/20 06:28 Dose: 12.5 mls/hr Documented by: Sodium Chloride () 250 mls @ 15 mls/hr IV .[id number] PRN PRN Reason: Saline Flush Last Infusion: 10/03/20 06:28 Dose: 0 mls/hr Documented by: Sodium Chloride () 250 mls @ 15 mls/hr IV .[id number] PRN PRN Reason: Additional IVPB Infusion Insulin Human Lispro (Insulin Lispro 100 Unit/Ml Insuln.Pen) 0 unit SC ACHS [facility]; Protocol Last Admin: 10/03/20 06:30 Dose: Not Given Documented by: Melatonin (Melatonin 3 Mg Tablet) 3 mg PO QHS PRN PRN PRN Reason: INSOMNIA Last Admin: 10/01/20 22:50 Dose: 3 mg Documented by: Metoprolol Tartrate (Metoprolol Tartrate 25 Mg Tablet) 25 mg PO BID [facility] Last Admin: 10/02/20 20:31 Dose: 25 mg Documented by: Miscellaneous Information (Inhaler, Assist Devices 1 Each Spacer) 1 each INHALATION Q4HWA [facility] Last Admin: 10/03/20 06:28 Dose: 1 each Documented by: Multivitamins (Multivitamins,Therapeutic Tablet) 1 tablet PO DINNER [facility] Last Admin: 10/02/20 16:55 Dose: 1 tablet Documented by: Ondansetron HCl (Ondansetron 4 Mg/2 Ml Vial) 4 mg IV Q8H PRN PRN PRN Reason: NAUSEA/VOMITING Sodium Chloride (0.9% Saline Lock 10 Ml Syringe) 10 - 40 ml IV UD PRN PRN Reason: Closed End PICC Flush Last Admin: 10/02/20 20:30 Dose: 20 ml Documented by: Sodium Chloride (0.9 % Nacl (Sterile) Posiflush 10 Ml) 10 - 40 ml IV UD PRN PRN Reason: Port access or dressing change Sodium Chloride (0.9% Saline Lock 10 Ml Syringe) 10 - 40 ml IV UD PRN PRN Reason: SALINE FLUSH STROKE Vital Signs/Narrative: Vital Signs Pulse Resp Pulse Ox 10/03/20 04:52 64 26 H 93 10/03/20 04:00 66 Medical Necessity - Tobacco Use Smoking Status: Former smoker Assessment/Plan All Active Problems (Last Reviewed 09/28/20 @ 07:[address] Rock Shen MD) SARS (severe acute respiratory syndrome) (Acute) COVID-19 (Acute) Acute kidney injury (Acute) Acute and chronic respiratory failure with hypoxia (Acute) COPD exacerbation (Acute) The patient is a 60 y/o M w/ PMHx: Chronic Severe COPD with Chronic Hypoxic Respiratory Failure, Obesity, CAD s/p PCI, Anxiety, HTN, HLD who presented to the [facility] ED on 09/28/20 with history of progressively worsening dyspnea, worse with exertion, cough with subjective chills with no fever x1 week. 1. Acute Severe Sepsis secondary to Acute on chronic hypoxic respiratory failure secondary to acute COVID-19 Pneumonia associated elevated LFTs and Acute Rhinovirus URI complicated by underlying severe COPD with Acute Exacerbation: Patient admitted to the ICU initially following ED evaluation with noted positive Covid PCR, elevated WBC with left shift, lactic acid elevated, chest x-ray with bilateral perihilar pulmonary infiltrates with a positive Covid antigen testing, BiPAP usage initiated secondary to significant status, patient eventually transition to AVAPS with usage nightly with wean of oxygen requirement to home 4 L nasal cannula during the day, completed course of remdesivir, continued on Decadron with transition to home chronic prednisone once appropriate with close monitoring of blood sugars, continued inhalers, continued currently on Zosyn therapy per pulmonary medicine discretion although sputum culture without growth noted, PCR with positive rhinovirus,, also continued on chronic azithromycin regimen, encourage aggressive I-S, consultation with infectious disease per protocol, PT/OT/case management consultations for discharge planning. Blood culture without growth. 2. Acute kidney injury: Secondary to acute presentation as noted #1, admission BUN/Cr 29/2.01, prior baseline creatinine noted to be 1.0, complicated by #1 presentation given avoidance of aggressive hydration, clinically improved, 10/02/2020 BUN/creatinine 24/1.06, 10/03 lab holiday, will repeat CMP in AM. 3. Chronic normocytic anemia, iron deficiency: Admission hemoglobin 12.9, 10/02/2020 9.9, baseline appears 9-10, continue to monitor closely, continue iron supplementation. 4. CAD: Status post PCI, initially mildly hypotensive upon presentation, continued on aspirin, Plavix, metoprolol, will plan resumption of patient Lasix therapy given improvement in renal function, continue patient metoprolol, resume losartan given renal function improvement concurrently with alterations as needed, continue statin therapy. 5. Chronic diastolic CHF: Patient upon presentation had significant ANNETTE with transient hold on Lasix therapy, renal function has improved and near baseline, weight trending upward, will reinitiate patient oral Lasix regimen, resume losartan therapy, continue aspirin, Plavix, beta-misti, statin therapy with hold as needed if renal function or presentation alters. 6. Diabetes mellitus type II: Hold oral home regimen, monitor blood sugars given Decadron usage, ADA diet, accu checks w/ ISS. 7. Anxiety and depression: We will continue patient home Wellbutrin regimen. 8. Obesity: Weight loss and lifestyle changes encouraged. 9. GERD: Continue patient home famotidine regimen. 10. DVT prophylaxis: SCDs, Lovenox. 11. CODE STATUS: Full code. Called patient to update on patient clinical presentation and care course; however, no answer, VM left to contact hospital for update. Inpatient E&M: [id number] [facility] Hosp L3
[2020-10-03] MEDS: dexAMETHasone 10 MG/ML Vial 6 MG IV (09:37)
[2020-10-03] MEDS: Enoxaparin 30 MG/0.3 ML Syringe SC ×2 (09:38→22:23)
[2020-10-03] MEDS: buPROPion 100 MG Tablet PO ×2 (09:39→16:56)
[2020-10-03] MEDS: Metoprolol Tartrate 25 MG Tablet PO ×2 (09:39→22:25)
[2020-10-03] MEDS: Famotidine 20 MG Tablet PO (09:39)
[2020-10-03] MEDS: Clopidogrel Bisulfate 75 MG Tablet PO (09:39)
[2020-10-03] MEDS: Azithromycin 250 MG Tablet PO (09:39)
[2020-10-03] MEDS: Aspirin 81 MG TAB.CHEW PO (09:39)
[2020-10-03] MEDS: guaiFENesin 1,200 MG Tablet 1200 MG PO ×2 (09:39→16:56)
[2020-10-03] MEDS: Insulin Lispro 100 UNIT/ML INSULN.PEN SC ×3 (11:57→22:23)
[2020-10-03 12:15] LABS: Bedside Glucose 150 mg/dL (70-110)
[2020-10-03] MEDS: Losartan Potassium 25 MG Tablet PO (13:25)
[2020-10-03] MEDS: Multivitamins,Therapeutic Tablet 1 TABLET PO (16:56)
[2020-10-03] MEDS: Atorvastatin Calcium 40 MG Tablet PO (16:56)
[2020-10-03] MEDS: Furosemide 40 MG Tablet PO (16:56)
[2020-10-03] MEDS: Ferrous Sulfate 325 MG Tablet PO (16:56)
[2020-10-03 17:26] LABS: Bedside Glucose 174 mg/dL (70-110)
[2020-10-03] MEDS: MELATONIN 3 MG TABLET PO (22:44)
[2020-10-04] VITALS (22 sets, daily range): BP systolic 97–118; BP diastolic 61–72; PULSE 62–82; RESP 12–23; TEMP 36.3–36.6; O2SAT 4–97
[2020-10-04 00:56] LABS: Bedside Glucose 174 mg/dL (70-110)
--- NOTE | 2020-10-04 05:55 | PCS.PANDOC ---
PANDEMIC DOCUMENTATION INITIATED: Date: 10/04/2020 Time: 0555
[2020-10-04] MEDS: INHALER, ASSIST DEVICES 1 EACH SPACER INHALATION ×5 (05:58→22:32)
--- NOTE | 2020-10-04 06:32 | PCM.PN.PUL ---
Patient Problems: Active and Suspected Problems (Last Reviewed 09/28/20 @ 07:[address] Rock Shen MD) SARS (severe acute respiratory syndrome) (Acute) COVID-19 (Acute) Acute kidney injury (Acute) Acute and chronic respiratory failure with hypoxia (Acute) COPD exacerbation (Acute) Subjective: The patient was seen and examined at the bedside this morning. Events from the last 24 hours have been reviewed. The patient is currently afebrile and hemodynamically stable. He has remained compliant with the use of nocturnal Pap therapy. The patient has been maintaining appropriate oxygen saturations on his baseline 4 L/min via nasal cannula. Objective: The patient's most recent lab work, culture data and imaging studies have all been personally reviewed. Coronavirus PCR was positive on September 28. Respiratory viral panel was positive for rhinovirus. Blood cultures have shown no growth to date. - Physical Exam Vitals/I&O's: Vital Signs Temp Pulse Resp BP Pulse Ox 97.9 F 65 20 H 109/62 96 10/04/20 02:30 10/04/20 06:00 10/04/20 06:00 10/04/20 02:30 10/04/20 06:00 Oxygen Flow Rate (L/min) 4.5 Oxygen Delivery Method Bi-pap Weight: 236 lb 15.951 oz Body Mass Index (BMI) 31.7 Intake and Output for Last 24 Hours 10/02/20 10/03/20 10/04/20 23:59 23:59 23:59 Intake Total 961.25 / 1281.25 2137.5 / 2137.5 50 / 50 Output Total 1150 / 1300 2100 / 2100 200 / 200 Balance -188.75 / -18.75 37.5 / 37.5 -150 / -150 General: Alert, Cooperative, No apparent distress HEENT: Atraumatic, Normocephalic Oral: No Gingival or Mucosal Lesions/ Ulcerations Neck: Supple, No Nodes, Trachea Midline Lungs: No rhonchi, No wheeze, No rales, Diminished Cardiovascular: Regular rate, Regular Rhythm Abdomen: Bowel Sounds Present, Soft, Non Tender, Obese Extremities: No cyanosis, No edema Skin: No breakdown Musculoskeletal: No Muscle Wasting Lymphatic: No Cervical, Supraclavicular, or Inguinal Adenopathy Neurological: Cranial nerves II-XII grossly intact, Neuro grossly intact Psych/Mental Status: Normal Affect, Appropriate Labs (Last 48 Hours) 10/02/20 10/02/20 10/02/20 07:00 07:00 08:19 WBC 8.8 RBC 4.03 L Hgb 9.9 L Hct 33.8 L MCV 83.9 MCH 24.6 L MCHC 29.3 L RDW Std Deviation 47.0 H RDW Coeff of Asael 15.3 H Plt Count 407 MPV 10.1 Immature Gran % (Auto) 1.700 H Neut % (Auto) 72.0 H Lymph % (Auto) 15.5 L Nance % (Auto) 10.1 H Eos % (Auto) 0.5 Baso % (Auto) 0.2 Absolute Neuts (auto) 6.3 Absolute Lymphs (auto) 1.36 Nucleated RBC % 0 Differential Comment Atypical Lymphocytes RARE Platelet Estimate ADEQUATE RBC Morphology NORM C+C Sodium 138 Potassium 3.8 Chloride 100 Carbon Dioxide 37.0 H Anion Gap 1 L BUN 24 H Creatinine 1.06 Estim Creat Clear Calc 77.94 Est GFR (MDRD) Af Amer 91 Est GFR (MDRD) Non-Af 76 BUN/Creatinine Ratio 22.6 H Glucose 129 H Calcium 8.6 Total Bilirubin 0.20 AST 70 H ALT 66 H Alkaline Phosphatase 61 Total Protein 5.8 L Albumin 2.0 L Globulin 3.8 Albumin/Globulin Ratio 0.5 L POC Glucose 104 10/02/20 10/02/20 10/02/20 11:06 16:54 20:24 WBC RBC Hgb Hct MCV MCH MCHC RDW Std Deviation RDW Coeff of Asael Plt Count MPV Immature Gran % (Auto) Neut % (Auto) Lymph % (Auto) Nance % (Auto) Eos % (Auto) Baso % (Auto) Absolute Neuts (auto) Absolute Lymphs (auto) Nucleated RBC % Differential Comment Atypical Lymphocytes Platelet Estimate RBC Morphology Sodium Potassium Chloride Carbon Dioxide Anion Gap BUN Creatinine Estim Creat Clear Calc Est GFR (MDRD) Af Amer Est GFR (MDRD) Non-Af BUN/Creatinine Ratio Glucose Calcium Total Bilirubin AST ALT Alkaline Phosphatase Total Protein Albumin Globulin Albumin/Globulin Ratio POC Glucose 179 H 169 H 139 H 10/03/20 10/03/20 10/03/20 06:30 11:55 16:54 WBC RBC Hgb Hct MCV MCH MCHC RDW Std Deviation RDW Coeff of Asael Plt Count MPV Immature Gran % (Auto) Neut % (Auto) Lymph % (Auto) Nance % (Auto) Eos % (Auto) Baso % (Auto) Absolute Neuts (auto) Absolute Lymphs (auto) Nucleated RBC % Differential Comment Atypical Lymphocytes Platelet Estimate RBC Morphology Sodium Potassium Chloride Carbon Dioxide Anion Gap BUN Creatinine Estim Creat Clear Calc Est GFR (MDRD) Af Amer Est GFR (MDRD) Non-Af BUN/Creatinine Ratio Glucose Calcium Total Bilirubin AST ALT Alkaline Phosphatase Total Protein Albumin Globulin Albumin/Globulin Ratio POC Glucose 89 150 H 174 H 10/03/20 22:22 WBC RBC Hgb Hct MCV MCH MCHC RDW Std Deviation RDW Coeff of Asael Plt Count MPV Immature Gran % (Auto) Neut % (Auto) Lymph % (Auto) Nance % (Auto) Eos % (Auto) Baso % (Auto) Absolute Neuts (auto) Absolute Lymphs (auto) Nucleated RBC % Differential Comment Atypical Lymphocytes Platelet Estimate RBC Morphology Sodium Potassium Chloride Carbon Dioxide Anion Gap BUN Creatinine Estim Creat Clear Calc Est GFR (MDRD) Af Amer Est GFR (MDRD) Non-Af BUN/Creatinine Ratio Glucose Calcium Total Bilirubin AST ALT Alkaline Phosphatase Total Protein Albumin Globulin Albumin/Globulin Ratio POC Glucose 174 H Microbiology 09/28/20 05:48 Blood Culture (Wb) #2 - Left Wrist Blood Culture - Final No growth in 5 days. 09/28/20 05:35 Blood Culture (Wb) - Anticubital Right Blood Culture - Final No growth in 5 days. Clinical Impression(s) from Imaging Studies Chest X-Ray 09/28/20 05:23 IMPRESSION: There are new bilateral perihilar pulmonary infiltrates. The lungs are well expanded There is no demonstrated pleural abnormality. Normal size heart. Electronically Signed: Mario Alberto Sandoval MD at 6:16 EST , Service support , Chest X-Ray 09/30/20 20:15 IMPRESSION: Catheter placement. Bilateral pneumonia. Electronically Signed: Josafat Carrasco MD at 21:31 EST , Service support , Current Medications Acetaminophen (Acetaminophen 325 Mg Tablet) 650 mg PO Q6H PRN PRN PRN Reason: Pain Score 1-10/Temp > 100.7 F Last Admin: 10/02/20 08:24 Dose: 650 mg Documented by: Albuterol Sulfate (Albuterol Sulfate 8gm 60 Dose Inhaler (Floor Use-With Spacer)) 1 puff INHALATION Q4HWA.RT [facility] Last Admin: 10/03/20 22:27 Dose: 1 puff Documented by: Albuterol Sulfate (Albuterol Sulfate 8gm 60 Dose Inhaler (Floor Use-With Spacer)) 1 puff INHALATION Q4H PRN PRN PRN Reason: Dyspnea, SOB Last Admin: 10/01/20 06:33 Dose: 1 puff Documented by: Aspirin (Aspirin 81 Mg Tab.Chew) 81 mg PO DAILY [facility] Last Admin: 10/03/20 09:39 Dose: 81 mg Documented by: Atorvastatin Calcium (Atorvastatin Calcium 40 Mg Tablet) 40 mg PO DINNER [facility] Last Admin: 10/03/20 16:56 Dose: 40 mg Documented by: Azithromycin (Azithromycin 250 Mg Tablet) 250 mg PO MoWeFr@1000 [facility] Last Admin: 10/03/20 09:39 Dose: 250 mg Documented by: Bupropion HCl (Bupropion 100 Mg Tablet) 100 mg PO BID@1000,1700 [facility] Last Admin: 10/03/20 16:56 Dose: 100 mg Documented by: Cholecalciferol (Cholecalciferol (Vit D3) 1,000 Unit (25mcg)) 1,000 unit PO DAILY [facility] Last Admin: 10/03/20 09:39 Dose: 1,000 unit Documented by: Clopidogrel Bisulfate (Clopidogrel Bisulfate 75 Mg Tablet) 75 mg PO DAILY [facility] Last Admin: 10/03/20 09:39 Dose: 75 mg Documented by: Dexamethasone Sodium Phosphate (Dexamethasone 10 Mg/Ml Vial) 6 mg IV DAILY [facility] Stop: 10/07/20 10:01 Last Admin: 10/03/20 09:37 Dose: 6 mg Documented by: Dextrose (Dextrose 50%-Water 25 Gm/50 Ml Disp.Syrin) 0 gm IV X1 PRN; Protocol PRN Reason: Hypoglycemia Enoxaparin Sodium (Enoxaparin 30 Mg/0.3 Ml Syringe) 30 mg SC BID [facility] Last Admin: 10/03/20 22:23 Dose: 30 mg Documented by: Famotidine (Famotidine 20 Mg Tablet) 20 mg PO DAILY [facility] Last Admin: 10/03/20 09:39 Dose: 20 mg Documented by: Ferrous Sulfate (Ferrous Sulfate 325 Mg Tablet) 325 mg PO DINNER [facility] Last Admin: 10/03/20 16:56 Dose: 325 mg Documented by: Furosemide (Furosemide 40 Mg Tablet) 40 mg PO BID@0800,1700 [facility] Last Admin: 10/03/20 16:56 Dose: 40 mg Documented by: Glucagon (Glucagon 1 Mg/Ml Syringe) 1 mg IM .X1 PRN PRN Reason: Hypoglycemia Guaifenesin (Guaifenesin 1,200 Mg Tablet) 1,200 mg PO BID@1000,1700 [facility] Last Admin: 10/03/20 16:56 Dose: 1,200 mg Documented by: Piperacillin Sod/Tazobactam (Sod 3.375 gm/ Sodium Chloride) 50 mls @ 12.5 mls/hr IV Q8 [facility] Last Admin: 10/04/20 05:57 Dose: 12.5 mls/hr Documented by: Sodium Chloride () 250 mls @ 15 mls/hr IV .[id number] PRN PRN Reason: Saline Flush Last Infusion: 10/03/20 06:28 Dose: 0 mls/hr Documented by: Sodium Chloride () 250 mls @ 15 mls/hr IV .[id number] PRN PRN Reason: Additional IVPB Infusion Insulin Human Lispro (Insulin Lispro 100 Unit/Ml Insuln.Pen) 0 unit SC ACHS [facility]; Protocol Last Admin: 10/03/20 22:23 Dose: 2 u Documented by: Losartan Potassium (Losartan Potassium 25 Mg Tablet) 25 mg PO 1400 [facility] Last Admin: 10/03/20 13:25 Dose: 25 mg Documented by: Melatonin (Melatonin 3 Mg Tablet) 3 mg PO QHS PRN PRN PRN Reason: INSOMNIA Last Admin: 10/03/20 22:44 Dose: 3 mg Documented by: Metoprolol Tartrate (Metoprolol Tartrate 25 Mg Tablet) 25 mg PO BID [facility] Last Admin: 10/03/20 22:25 Dose: 25 mg Documented by: Miscellaneous Information (Inhaler, Assist Devices 1 Each Spacer) 1 each INHALATION Q4HWA [facility] Last Admin: 10/04/20 05:58 Dose: 1 each Documented by: Multivitamins (Multivitamins,Therapeutic Tablet) 1 tablet PO [facility]IN[facility] Last Admin: 10/03/20 16:56 Dose: 1 tablet Documented by: Ondansetron HCl (Ondansetron 4 Mg/2 Ml Vial) 4 mg IV Q8H PRN PRN PRN Reason: NAUSEA/VOMITING Sodium Chloride (0.9% Saline Lock 10 Ml Syringe) 10 - 40 ml IV UD PRN PRN Reason: Closed End PICC Flush Last Admin: 10/02/20 20:30 Dose: 20 ml Documented by: Sodium Chloride (0.9 % Nacl (Sterile) Posiflush 10 Ml) 10 - 40 ml IV UD PRN PRN Reason: Port access or dressing change Sodium Chloride (0.9% Saline Lock 10 Ml Syringe) 10 - 40 ml IV UD PRN PRN Reason: SALINE FLUSH Medical Necessity - Tobacco Use Smoking Status: Former smoker Assessment/Plan All Active Problems (Last Reviewed 09/28/20 @ 07:[address] Rock Shen MD) SARS (severe acute respiratory syndrome) (Acute) COVID-19 (Acute) Acute kidney injury (Acute) Acute and chronic respiratory failure with hypoxia (Acute) COPD exacerbation (Acute) RECOMMENDATIONS: 1. Continue supplemental oxygen at 4 L/min per baseline requirement. Continue AVAPS nightly. 2. Continue bronchodilator therapy. 3. Continue antimicrobials to complete a 7-day treatment course. Continue Decadron to complete 10 days of therapy. 4. Encourage incentive spirometer use and mobilize patient as tolerated. 5. The patient should follow up in the pulmonary clinic 2 weeks post discharge. IMPRESSIONS: 1. Acute on chronic combined respiratory failure secondary to combined COVID-19 pneumonia and rhinovirus upper respiratory infection Plan to continue current supportive measures with supplemental oxygen and noninvasive positive pressure ventilatory support on a nightly basis. The patient is currently maintaining appropriate oxygen saturations on his baseline 4 L/min requirement. He does have a history of frequent COPD exacerbations. The patient has completed a treatment course of Remdesivir and remains on Decadron to complete 10 day course. Encourage incentive spirometer use and mobilize patient as tolerated. 2. Acute kidney injury Resolved. Likely prerenal in etiology. Creatinine has improved with fluid hydration. Continue to monitor urine output. No current indication for renal replacement therapy. 3. Coronary artery disease status post PTCA/anxiety/hyperlipidemia/hypertension Complicates care, management, recovery and prognosis. Continue home medications as indicated. This note was generated with [employer] software. It may contain incorrect words, spelling, and punctuation that were not noted in checking the note before signing. Inpatient E&M: 07558 [facility] Hosp L2
--- NOTE | 2020-10-04 06:56 | PCM.PN.HOSP ---
Patient Problems: Active and Suspected Problems (Last Reviewed 09/28/20 @ 07:[address] Rock Shen MD) SARS (severe acute respiratory syndrome) (Acute) COVID-19 (Acute) Acute kidney injury (Acute) Acute and chronic respiratory failure with hypoxia (Acute) COPD exacerbation (Acute) Subjective: Patient with no acute events overnight per self and per nursing report, continue requirement of 3 to 4 L nasal cannula at rest which is his baseline and AVAPs overnight. Did have oxygenation trial this morning and patient did increase his requirements noted to be 88% on 4 L with activity with increase up to 5 L noted to be 92% however he was very lightheaded and dizzy and extremely symptomatic with significant rest required. Patient denies fevers, chills, nausea, emesis, abdominal pain, chest pain. Objective: Physical Examination: General: awake, alert, oriented x 3 and cooperative, seated upright in the medical surgical bed, no acute distress, prior to his oxygenation trial initially. Skin: normal color, turgor, no icterus, cyanosis. HEENT: AT/NC, EOMI, PERRLA, MMM. Lungs: Diminished breath sounds throughout, greater bases, moderate effort, no rales, ronchi or wheezing. Heart: Regular rate and rhythm; no gallop, rub audible. Abdomen: soft, obese, NTTP, ND, normal BS. Extremities: no cyanosis or clubbing, mild bilateral ankle edema, not markedly pitting. Neurological: patient awake, alert, oriented as noted; cognitive function peers baseline intact; pupils equally reactive to light and accomodation; cranial nerves II-XII grossly normal, moving all 4 extremities, no focal deficits, strength moderately to severely global decrease secondary to acute presentation and underlying comorbidities. Psychiatric: affect appears fatigued, more interactive than day prior however, no acute evidence of depressive or anxiety feelings. Vitals/I&O's: Vital Signs Temp Pulse Resp BP Pulse Ox 97.9 F 65 20 H 109/62 96 10/04/20 02:30 10/04/20 06:00 10/04/20 06:00 10/04/20 02:30 10/04/20 06:00 Oxygen Flow Rate (L/min) 4.5 Oxygen Delivery Method Bi-pap Weight: 236 lb 15.951 oz Body Mass Index (BMI) 31.7 Intake and Output for Last 24 Hours 10/02/20 10/03/20 10/04/20 23:59 23:59 23:59 Intake Total 961.25 / 1281.25 2137.5 / 2137.5 50 / 50 Output Total 1150 / 1300 2100 / 2100 200 / 200 Balance -188.75 / -18.75 37.5 / 37.5 -150 / -150 Microbiology Past 72 Hours 09/28/20 05:48 Blood Culture (Wb) #2 - Left Wrist Blood Culture - Final No growth in 5 days. 09/28/20 05:35 Blood Culture (Wb) - Anticubital Right Blood Culture - Final No growth in 5 days. 09/28/20 18:00 Sputum, Expectorated/Coughed Gram Stain - Final 09/28/20 18:00 Sputum, Expectorated/Coughed Respiratory Culture - Final Laboratory Results 10/03/20 11:55: POC Glucose 150 H 10/03/20 16:54: POC Glucose 174 H 10/03/20 22:22: POC Glucose 174 H Current Medications Acetaminophen (Acetaminophen 325 Mg Tablet) 650 mg PO Q6H PRN PRN PRN Reason: Pain Score 1-10/Temp > 100.7 F Last Admin: 10/02/20 08:24 Dose: 650 mg Documented by: Albuterol Sulfate (Albuterol Sulfate 8gm 60 Dose Inhaler (Floor Use-With Spacer)) 1 puff INHALATION Q4HWA.RT [facility] Last Admin: 10/03/20 22:27 Dose: 1 puff Documented by: Albuterol Sulfate (Albuterol Sulfate 8gm 60 Dose Inhaler (Floor Use-With Spacer)) 1 puff INHALATION Q4H PRN PRN PRN Reason: Dyspnea, SOB Last Admin: 10/01/20 06:33 Dose: 1 puff Documented by: Aspirin (Aspirin 81 Mg Tab.Chew) 81 mg PO DAILY [facility] Last Admin: 10/03/20 09:39 Dose: 81 mg Documented by: Atorvastatin Calcium (Atorvastatin Calcium 40 Mg Tablet) 40 mg PO DINNER [facility] Last Admin: 10/03/20 16:56 Dose: 40 mg Documented by: Azithromycin (Azithromycin 250 Mg Tablet) 250 mg PO MoWeFr@1000 [facility] Last Admin: 10/03/20 09:39 Dose: 250 mg Documented by: Bupropion HCl (Bupropion 100 Mg Tablet) 100 mg PO BID@1000,1700 [facility] Last Admin: 10/03/20 16:56 Dose: 100 mg Documented by: Cholecalciferol (Cholecalciferol (Vit D3) 1,000 Unit (25mcg)) 1,000 unit PO DAILY [facility] Last Admin: 10/03/20 09:39 Dose: 1,000 unit Documented by: Clopidogrel Bisulfate (Clopidogrel Bisulfate 75 Mg Tablet) 75 mg PO DAILY [facility] Last Admin: 10/03/20 09:39 Dose: 75 mg Documented by: Dexamethasone Sodium Phosphate (Dexamethasone 10 Mg/Ml Vial) 6 mg IV DAILY [facility] Stop: 10/07/20 10:01 Last Admin: 10/03/20 09:37 Dose: 6 mg Documented by: Dextrose (Dextrose 50%-Water 25 Gm/50 Ml Disp.Syrin) 0 gm IV X1 PRN; Protocol PRN Reason: Hypoglycemia Enoxaparin Sodium (Enoxaparin 30 Mg/0.3 Ml Syringe) 30 mg SC BID [facility] Last Admin: 10/03/20 22:23 Dose: 30 mg Documented by: Famotidine (Famotidine 20 Mg Tablet) 20 mg PO DAILY [facility] Last Admin: 10/03/20 09:39 Dose: 20 mg Documented by: Ferrous Sulfate (Ferrous Sulfate 325 Mg Tablet) 325 mg PO DINNER [facility] Last Admin: 10/03/20 16:56 Dose: 325 mg Documented by: Furosemide (Furosemide 40 Mg Tablet) 40 mg PO BID@0800,1700 [facility] Last Admin: 10/03/20 16:56 Dose: 40 mg Documented by: Glucagon (Glucagon 1 Mg/Ml Syringe) 1 mg IM .X1 PRN PRN Reason: Hypoglycemia Guaifenesin (Guaifenesin 1,200 Mg Tablet) 1,200 mg PO BID@1000,1700 [facility] Last Admin: 10/03/20 16:56 Dose: 1,200 mg Documented by: Piperacillin Sod/Tazobactam (Sod 3.375 gm/ Sodium Chloride) 50 mls @ 12.5 mls/hr IV Q8 [facility] Last Admin: 10/04/20 05:57 Dose: 12.5 mls/hr Documented by: Sodium Chloride () 250 mls @ 15 mls/hr IV .[id number] PRN PRN Reason: Saline Flush Last Infusion: 10/03/20 06:28 Dose: 0 mls/hr Documented by: Sodium Chloride () 250 mls @ 15 mls/hr IV .[id number] PRN PRN Reason: Additional IVPB Infusion Insulin Human Lispro (Insulin Lispro 100 Unit/Ml Insuln.Pen) 0 unit SC ACHS [facility]; Protocol Last Admin: 10/03/20 22:23 Dose: 2 u Documented by: Losartan Potassium (Losartan Potassium 25 Mg Tablet) 25 mg PO 1400 [facility] Last Admin: 10/03/20 13:25 Dose: 25 mg Documented by: Melatonin (Melatonin 3 Mg Tablet) 3 mg PO QHS PRN PRN PRN Reason: INSOMNIA Last Admin: 10/03/20 22:44 Dose: 3 mg Documented by: Metoprolol Tartrate (Metoprolol Tartrate 25 Mg Tablet) 25 mg PO BID [facility] Last Admin: 10/03/20 22:25 Dose: 25 mg Documented by: Miscellaneous Information (Inhaler, Assist Devices 1 Each Spacer) 1 each INHALATION Q4HWA [facility] Last Admin: 10/04/20 05:58 Dose: 1 each Documented by: Multivitamins (Multivitamins,Therapeutic Tablet) 1 tablet PO DINNER [facility] Last Admin: 10/03/20 16:56 Dose: 1 tablet Documented by: Ondansetron HCl (Ondansetron 4 Mg/2 Ml Vial) 4 mg IV Q8H PRN PRN PRN Reason: NAUSEA/VOMITING Sodium Chloride (0.9% Saline Lock 10 Ml Syringe) 10 - 40 ml IV UD PRN PRN Reason: Closed End PICC Flush Last Admin: 10/02/20 20:30 Dose: 20 ml Documented by: Sodium Chloride (0.9 % Nacl (Sterile) Posiflush 10 Ml) 10 - 40 ml IV UD PRN PRN Reason: Port access or dressing change Sodium Chloride (0.9% Saline Lock 10 Ml Syringe) 10 - 40 ml IV UD PRN PRN Reason: SALINE FLUSH STROKE Vital Signs/Narrative: Vital Signs Pulse Resp Pulse Ox 10/04/20 06:00 65 20 H 96 10/04/20 04:00 62 10/04/20 03:04 63 22 H 94 Medical Necessity - Tobacco Use Smoking Status: Former smoker Assessment/Plan All Active Problems (Last Reviewed 09/28/20 @ 07:[address] Rock Shen MD) SARS (severe acute respiratory syndrome) (Acute) COVID-19 (Acute) Acute kidney injury (Acute) Acute and chronic respiratory failure with hypoxia (Acute) COPD exacerbation (Acute) The patient is a 60 y/o M w/ PMHx: Chronic Severe COPD with Chronic Hypoxic Respiratory Failure, Obesity, CAD s/p PCI, Anxiety, HTN, HLD who presented to the [facility] ED on 09/28/20 with history of progressively worsening dyspnea, worse with exertion, cough with subjective chills with no fever x1 week. 1. Acute Severe Sepsis secondary to Acute on chronic hypoxic respiratory failure secondary to acute COVID-19 Pneumonia associated elevated LFTs and Acute Rhinovirus URI complicated by underlying severe COPD with Acute Exacerbation: Patient admitted to the ICU initially following ED evaluation with noted positive Covid PCR, elevated WBC with left shift, lactic acid elevated, chest x-ray with bilateral perihilar pulmonary infiltrates with a positive Covid antigen testing, BiPAP usage initiated secondary to significant status, patient eventually transition to AVAPS with usage nightly with wean of oxygen requirement to home 4 L nasal cannula during the day, completed course of remdesivir, continued on Decadron with transition to home chronic prednisone once appropriate with close monitoring of blood sugars, continued inhalers, continued currently on Zosyn therapy per pulmonary medicine discretion although sputum culture without growth noted with current plan for completion of 7-day course with initiation on 09/28/20 with completion on 10/05/20, PCR with positive rhinovirus, also continued on chronic azithromycin regimen, encourage aggressive I-S, consultation with infectious disease per protocol, PT/OT/case management consultations for discharge planning. Blood culture without growth. 10/04/20 oxygenation trial with significant symptomatic presentation noted to be lightheaded and dizzy with aggressive attempts requiring increased oxygen requirements. Will plan continued aggressive encouragement of I-S and repeat assessments 10/05/20. If patient less symptomatic and remained stable with 6 L or less requirement including with activity would plan discharge with follow-up with pulmonary medicine in approximately 2 weeks per discussion with pulmonary/ICU physician. 2. Acute kidney injury: Secondary to acute presentation as noted #1, admission BUN/Cr 29/2.01, prior baseline creatinine noted to be 1.0, complicated by #1 presentation given avoidance of aggressive hydration, clinically improved, 10/02/2020 BUN/creatinine 24/1.06--> 10/04/20 BUN/creatinine 19/0.94, resolved. Continue to monitor with noted resumption of nephrotoxic regimen given result ANNETTE. 3. Chronic normocytic anemia, iron deficiency: Admission hemoglobin 12.9, 10/04/20 hemoglobin 11, baseline appears 9-10, continue to monitor closely, continue iron supplementation. 4. CAD: Status post PCI, initially mildly hypotensive upon presentation, continued on aspirin, Plavix, metoprolol, will plan resumption of patient Lasix therapy given improvement in renal function, continue patient metoprolol, resume losartan given renal function improvement concurrently with alterations as needed, continue statin therapy. 5. Chronic diastolic CHF: Patient upon presentation had significant ANNETTE with transient hold on Lasix therapy, renal function has improved and near baseline, weight trending upward, reinitiated patient oral Lasix regimen as well as losartan therapy, continue aspirin, Plavix, beta-misti, statin therapy with hold as needed if renal function or presentation alters. 6. Diabetes mellitus type II: Hold oral home regimen, monitor blood sugars given Decadron usage, ADA diet, accu checks w/ ISS. 7. Anxiety and depression: We will continue patient home Wellbutrin regimen. 8. Obesity: Weight loss and lifestyle changes encouraged. 9. GERD: Continue patient home famotidine regimen. 10. DVT prophylaxis: SCDs, Lovenox. 11. CODE STATUS: Full code. Inpatient E&M: 13187 Subs Hosp L2
[2020-10-04 07:53] LABS: ALB/GLOB Ratio 0.6 RATIO (0.9-2.4); AST(SGOT) 126 U/L (15-37); Alanine Aminotransfer ALT/SGPT 156 U/L (16-61); Albumin, Serum 2.2 g/dL (3.2-5.0); Alkaline Phosphatase 75 U/L (45-117); Anion Gap 1 (5-15); BUN 19 mg/dL (7-18); BUN/Creat Ratio 20.2 RATIO (10-20); Calcium,Total 8.8 mg/dL (8.5-10.1); Chloride 105 mmol/L (98-107); Creatinine, Serum 0.94 mg/dL (0.70-1.30); EST Glomerular Filtration Rate 87 mL/min (>60); Est Glom Filt Rate - Afr Amer 105 mL/min (>60); Estimated Creatinine Clearance 87.89 ml/min; Globulin 3.9 g/dL (2.2-4.2); Glucose 113 mg/dL (74-106); Potassium 3.9 mmol/L (3.5-5.1); Protein, Total 6.1 g/dL (6.4-8.2); Sodium Level 142 mmol/L (136-145)
[2020-10-04] MEDS: Aspirin 81 MG TAB.CHEW PO (08:08)
[2020-10-04] MEDS: Clopidogrel Bisulfate 75 MG Tablet PO (08:08)
[2020-10-04] MEDS: Furosemide 40 MG Tablet PO ×2 (08:09→16:36)
[2020-10-04] MEDS: Famotidine 20 MG Tablet PO (08:09)
[2020-10-04] MEDS: Enoxaparin 30 MG/0.3 ML Syringe SC ×2 (08:09→22:31)
[2020-10-04] MEDS: guaiFENesin 1,200 MG Tablet 1200 MG PO ×2 (08:10→16:36)
[2020-10-04] MEDS: Metoprolol Tartrate 25 MG Tablet PO ×2 (08:10→22:31)
[2020-10-04] MEDS: buPROPion 100 MG Tablet PO ×2 (08:11→16:36)
[2020-10-04] MEDS: dexAMETHasone 10 MG/ML Vial 6 MG IV (08:11)
[2020-10-04 09:13] LABS: Hematocrit 38.3 % (40-54); Mean Corp Hgb Conc 28.7 g/dL (32-36); Mean Corpuscular Hgb 24.5 pg (27.0-32.0); Mean Corpuscular Volume 85.3 fL (80-94); Mean Platelet Vol. 9.7 fl (6.2-12.0); POSITIVE COUNT YES; POSITIVE MORPHOLOGY YES; Platelet Count 620 K/mm3 (150-450); RBC Distribution Width CV 15.8 % (11.6-14.6); RBC Distribution Width SD 49.1 fl (35.1-43.9); Red Blood Count 4.49 M/mm3 (4.6-6.2); White Blood Count 11.3 K/mm3 (4.4-11.0)
[2020-10-04 10:27] LABS: Metamyelocyte 1 % (0-1); Myelocyte 1 (0-0); Neutrophil-Band 10 % (0-5); Neutrophil-Segmented 44 % (47-70); Total Cells Counted 100 (MANUAL DIFF)
[2020-10-04 10:28] LABS: Lymphocyte 29 % (19-41); Monocyte 13 % (0-10); Promyelocyte 2 (0-0)
[2020-10-04 10:29] LABS: Differential Indicated MANUAL DIFF
[2020-10-04 10:31] LABS: Absolute Lymphocyte Count 3.27 X10^3/uL (0.83-4.51); Absolute Neutrophil Count 6.1 X10^3/uL (2.0-7.7); Reactive Lymphocyte 1+
[2020-10-04 10:32] LABS: Hypochromasia 2+; Platelet Estimate MOD INC (ADEQ); Red Cell Morphology N CYTIC NORMAL (NORM C&C)
[2020-10-04] MEDS: Insulin Lispro 100 UNIT/ML INSULN.PEN SC ×2 (11:27→16:35)
--- NOTE | 2020-10-04 11:36 | NURSING ---
Addendum entered by Danni Kim 10/04/20 11:38: Dr. Perez aware of this and no discharge today. Original Note: This nurse walked pt in room with oxygen on at 4L [place]. Spo2 88% on 4L while walking. This nurse increased oxygen to 5L and spo2 came up to 92% while walking but both times complained of dizzyness.
[2020-10-04 11:41] LABS: Bedside Glucose 186 mg/dL (70-110)
[2020-10-04 11:41] LABS: Bedside Glucose 118 mg/dL (70-110)
--- NOTE | 2020-10-04 13:57 | CASEMGMT ---
ERIK GUTIERREZ NOTE; Pt has Home O2 @ 4 l/m baseline through [employer]. Home O2 testing should be completed w/pt's baseline O2 of 4 L/M. If pt requires > 4 l/m @ rest or with exertion, updated O2 script will need faxed to [facility]. Green sheet placed on pts chart with instructions. Bharti SORIANO RN CM
[2020-10-04] MEDS: Losartan Potassium 25 MG Tablet PO (15:06)
[2020-10-04] MEDS: Multivitamins,Therapeutic Tablet 1 TABLET PO (16:36)
[2020-10-04] MEDS: Atorvastatin Calcium 40 MG Tablet PO (16:36)
[2020-10-04] MEDS: Ferrous Sulfate 325 MG Tablet PO (16:36)
[2020-10-04 16:51] LABS: Bedside Glucose 183 mg/dL (70-110)
[2020-10-04 22:51] LABS: Bedside Glucose 139 mg/dL (70-110)
[2020-10-05] VITALS (16 sets, daily range): BP systolic 94–120; BP diastolic 62–72; PULSE 65–75; RESP 12–23; TEMP 36.4–36.7; O2SAT 93–97
[2020-10-05] MEDS: INHALER, ASSIST DEVICES 1 EACH SPACER INHALATION ×4 (05:53→22:15)
[2020-10-05 06:46] LABS: Hematocrit 36.9 % (40-54); Hemoglobin 10.5 g/dL (13.0-16.5); Mean Corp Hgb Conc 28.5 g/dL (32-36); Mean Corpuscular Hgb 24.1 pg (27.0-32.0); Mean Corpuscular Volume 84.6 fL (80-94); Mean Platelet Vol. 9.2 fl (6.2-12.0); POSITIVE COUNT YES; POSITIVE MORPHOLOGY YES; Platelet Count 613 K/mm3 (150-450); RBC Distribution Width CV 15.6 % (11.6-14.6); RBC Distribution Width SD 48.6 fl (35.1-43.9); Red Blood Count 4.36 M/mm3 (4.6-6.2); White Blood Count 11.5 K/mm3 (4.4-11.0)
--- NOTE | 2020-10-05 07:04 | PN_ITS ---
Patient Problems: Active and Suspected Problems (Last Reviewed 09/28/20 @ 07:[address] Rock Shen MD) SARS (severe acute respiratory syndrome) (Acute) COVID-19 (Acute) Acute kidney injury (Acute) Acute and chronic respiratory failure with hypoxia (Acute) COPD exacerbation (Acute) Subjective: The patient is a 60 y/o M w/ PMHx: Chronic Severe COPD with Chronic Hypoxic Respiratory Failure, Obesity, CAD s/p PCI, Anxiety, HTN, HLD who presented to the [facility] ED on 09/28/20 with history of progressively worsening dyspnea, worse with exertion, cough with subjective chills with no fever x1 week. Patient admitted to the ICU initially following ED evaluation with noted positive Covid PCR, elevated WBC with left shift, lactic acid elevated, chest x-ray with bilateral perihilar pulmonary infiltrates with a positive Covid antigen testing, BiPAP usage initiated secondary to significant status, patient eventually transition to AVAPS with usage nightly with wean of oxygen requirement to home 4 L nasal cannula during the day, completed course of remdesivir, continued on Decadron with transition to home chronic prednisone once appropriate with close monitoring of blood sugars, continued inhalers, continued currently on Zosyn therapy per pulmonary medicine discretion although sputum culture without growth noted with current plan for completion of 7-day course with initiation on 09/28/20 with completion on 10/05/20, PCR with positive rhinovirus, also continued on chronic azithromycin regimen, encourage aggressive I-S, cons ultation with infectious disease per protocol, PT/OT/case management consultations for discharge planning. 10/04/20 oxygenation trial with significant symptomatic presentation noted to be lightheaded and dizzy with aggressive attempts requiring increased oxygen requirements. Urged continued incentive spirometer and continue movement in the room with Per discussion with pulmonary medicine plan reassessment 10/06/2020 a.m. for discharge planning and if continued 6 L or less usage at rest and with activity although it had been on 4 L which is patient baseline then will plan discharge to home if symptomatically appropriate for discharge. Would plan 2-week follow-up with pulmonary medicine at discharge. Upon discharge to home will continue trilogy nightly at home. Patient overnight with no acute events per self and per nursing report. Patient states he still does have lightheadedness and dizziness when he is too active secondary to severity of dyspnea but he states it is slowly improving even from day prior. Patient had oxygenation trial day prior and was significantly symptomatic therefore discharge concept had been held. Discussed plan of care with patient and amenable to retry 10/06/2020 a.m. and discharge if symptoms have improved. Patient notes difficulty sleeping and requesting something to assist. Patient denies fevers, chills, nausea, emesis, abdominal pain, chest pain. Objective: Physical Examination: General: awake, alert, oriented x 3 and cooperative, seated upright in the medical surgical bed, no acute distress. Skin: normal color, turgor, no icterus, cyanosis. HEENT: AT/NC, EOMI, PERRLA, MMM. Lungs: Diminished breath sounds throughout, greater bases, moderate effort, no rales, ronchi or wheezing. Heart: Regular rate and rhythm; no gallop, rub audible. Abdomen: soft, obese, NTTP, ND, normal BS. Extremities: no cyanosis or clubbing, mild bilateral ankle edema, not markedly pitting. Neurological: patient awake, alert, oriented as noted; cognitive function peers baseline intact; pupils equally reactive to light and accomodation; cranial nerves II-XII grossly normal, moving all 4 extremities, no focal deficits, strength moderately to severely global decrease secondary to acute presentation and underlying comorbidities. Psychiatric: affect appears fatigued otherwise normal, no acute evidence of depressive or anxiety feelings. Vitals/I&O's: Vital Signs Temp Pulse Resp BP Pulse Ox 98.0 F 66 16 94/62 97 10/05/20 05:51 10/05/20 05:51 10/05/20 05:51 10/05/20 05:51 10/05/20 05:51 Oxygen Flow Rate (L/min) [ 88 AMBULATION with Oxygen] Oxygen Flow Rate (L/min) 4.5 Oxygen Delivery Method Bi-pap Weight: 230 lb 13.184 oz Body Mass Index (BMI) 31.7 Intake and Output for Last 24 Hours 10/03/20 10/04/20 10/05/20 23:59 23:59 23:59 Intake Total 2137.5 / 2137.5 650 / 650 50 / 50 Output Total 2100 / 2100 1800 / 1800 900 / 900 Balance 37.5 / 37.5 -1150 / -1150 -850 / -850 Microbiology Past 72 Hours 09/28/20 05:48 Blood Culture (Wb) #2 - Left Wrist Blood Culture - Final No growth in 5 days. 09/28/20 05:35 Blood Culture (Wb) - Anticubital Right Blood Culture - Final No growth in 5 days. Laboratory Results 10/04/20 07:10: WBC 11.3 H, RBC 4.49 L, Hgb 11.0 L, Hct 38.3 L, MCV 85.3, MCH 24.5 L, MCHC 28.7 L, RDW Std Deviation 49.1 H, RDW Coeff of Asael 15.8 H, Plt Count 620 H, MPV 9.7, Neut % (Auto) Not Reportable, Absolute Neuts (auto) 6.1, Absolute Lymphs (auto) 3.27, Total Counted 100, Neutrophils % (Manual) 44 L, Band Neutrophils % 10 H, Lymphocytes % (Manual) 29, Monocytes % (Manual) 13 H, Metamyelocytes % 1, Myelocytes % 1 H, Promyelocytes % 2 H, Diff Path Review May foll, Reactive Lymphocytes 1+, Platelet Estimate MOD INC, RBC Morphology N CYTIC, Hypochromasia 2+ 10/04/20 07:10: Sodium 142, Potassium 3.9, Chloride 105, Carbon Dioxide 36.0 H, Anion Gap 1 L, BUN 19 H, Creatinine 0.94, Estim Creat Clear Calc 87.89, Est GFR (MDRD) Af Amer 105, Est GFR (MDRD) Non-Af 87, BUN/Creatinine Ratio 20.2 H, Glucose 113 H, Calcium 8.8, Total Bilirubin 0.40, AST 126 H, ALT 156 H, Alkaline Phosphatase 75, Total Protein 6.1 L, Albumin 2.2 L, Globulin 3.9, Albumin/Globulin Ratio 0.6 L 10/04/20 08:01: POC Glucose 118 H 10/04/20 11:25: POC Glucose 186 H 10/04/20 16:34: POC Glucose 183 H 10/04/20 22:29: POC Glucose 139 H 10/05/20 06:20: WBC 11.5 H, RBC 4.36 L, Hgb 10.5 L, Hct 36.9 L, MCV 84.6, MCH 24.1 L, MCHC 28.5 L, RDW Std Deviation 48.6 H, RDW Coeff of Asael 15.6 H, Plt Count 613 H, MPV 9.2, Immature Gran % (Auto) 8.900 H, Neut % (Auto) 48.1, Lymph % (Auto) 28.7, [place] % (Auto) 10.9 H, Eos % (Auto) 2.6, Baso % (Auto) 0.8, Absolute Neuts (auto) 5.5, Absolute Lymphs (auto) 3.30, Nucleated RBC % 0 10/05/20 06:20: Sodium Pending, Potassium Pending, Chloride Pending, Carbon Dioxide Pending, Anion Gap Pending, BUN Pending, Creatinine Pending, Est GFR (MDRD) Af Amer Pending, Est GFR (MDRD) Non-Af Pending, BUN/Creatinine Ratio Pending, Glucose Pending, Calcium Pending, Total Bilirubin Pending, AST Pending, ALT Pending, Alkaline Phosphatase Pending, Total Protein Pending, Albumin Pe nding Current Medications Acetaminophen (Acetaminophen 325 Mg Tablet) 650 mg PO Q6H PRN PRN PRN Reason: Pain Score 1-10/Temp > 100.7 F Last Admin: 10/02/20 08:24 Dose: 650 mg Documented by: Albuterol Sulfate (Albuterol Sulfate 8gm 60 Dose Inhaler (Floor Use-With Spacer)) 1 puff INHALATION Q4HWA.RT [facility] Last Admin: 10/04/20 22:32 Dose: 1 puff Documented by: Albuterol Sulfate (Albuterol Sulfate 8gm 60 Dose Inhaler (Floor Use-With Spacer)) 1 puff INHALATION Q4H PRN PRN PRN Reason: Dyspnea, SOB Last Admin: 10/01/20 06:33 Dose: 1 puff Documented by: Aspirin (Aspirin 81 Mg Tab.Chew) 81 mg PO DAILY [facility] Last Admin: 10/04/20 08:08 Dose: 81 mg Documented by: Atorvastatin Calcium (Atorvastatin Calcium 40 Mg Tablet) 40 mg PO DINNER [facility] Last Admin: 10/04/20 16:36 Dose: 40 mg Documented by: Azithromycin (Azithromycin 250 Mg Tablet) 250 mg PO MoWeFr@1000 [facility] Last Admin: 10/03/20 09:39 Dose: 250 mg Documented by: Bupropion HCl (Bupropion 100 Mg Tablet) 100 mg PO BID@1000,1700 [facility] Last Admin: 10/04/20 16:36 Dose: 100 mg Documented by: Cholecalciferol (Cholecalciferol (Vit D3) 1,000 Unit (25mcg)) 1,000 unit PO DAILY [facility] Last Admin: 10/04/20 08:11 Dose: 1,000 unit Documented by: Clopidogrel Bisulfate (Clopidogrel Bisulfate 75 Mg Tablet) 75 mg PO DAILY [facility] Last Admin: 10/04/20 08:08 Dose: 75 mg Documented by: Dexamethasone Sodium Phosphate (Dexamethasone 10 Mg/Ml Vial) 6 mg IV DAILY [facility] Stop: 10/07/20 10:01 Last Admin: 10/04/20 08:11 Dose: 6 mg Documented by: Dextrose (Dextrose 50%-Water 25 Gm/50 Ml Disp.Syrin) 0 gm IV X1 PRN; Protocol PRN Reason: Hypoglycemia Enoxaparin Sodium (Enoxaparin 30 Mg/0.3 Ml Syringe) 30 mg SC BID [facility] Last Admin: 10/04/20 22:31 Dose: 30 mg Documented by: Famotidine (Famotidine 20 Mg Tablet) 20 mg PO DAILY [facility] Last Admin: 10/04/20 08:09 Dose: 20 mg Documented by: Ferrous Sulfate (Ferrous Sulfate 325 Mg Tablet) 325 mg PO DINNER [facility] Last Admin: 10/04/20 16:36 Dose: 325 mg Documented by: Furosemide (Furosemide 40 Mg Tablet) 40 mg PO BID@0800,1700 [facility] Last Admin: 10/04/20 16:36 Dose: 40 mg Documented by: Glucagon (Glucagon 1 Mg/Ml Syringe) 1 mg IM .X1 PRN PRN Reason: Hypoglycemia Guaifenesin (Guaifenesin 1,200 Mg Tablet) 1,200 mg PO BID@1000,1700 [facility] Last Admin: 10/04/20 16:36 Dose: 1,200 mg Documented by: Piperacillin Sod/Tazobactam (Sod 3.375 gm/ Sodium Chloride) 50 mls @ 12.5 mls/hr IV Q8 [facility] Stop: 10/06/20 07:00 Last Admin: 10/05/20 05:53 Dose: 12.5 mls/hr Documented by: Sodium Chloride () 250 mls @ 15 mls/hr IV .[id number] PRN PRN Reason: Saline Flush Last Infusion: 10/03/20 06:28 Dose: 0 mls/hr Documented by: Sodium Chloride () 250 mls @ 15 mls/hr IV .[id number] PRN PRN Reason: Additional IVPB Infusion Insulin Human Lispro (Insulin Lispro 100 Unit/Ml Insuln.Pen) 0 unit SC ACHS [facility]; Protocol Last Admin: 10/04/20 22:30 Dose: Not Given Documented by: Losartan Potassium (Losartan Potassium 25 Mg Tablet) 25 mg PO 1400 [facility] Last Admin: 10/04/20 15:06 Dose: 25 mg Documented by: Melatonin (Melatonin 3 Mg Tablet) 3 mg PO QHS PRN PRN PRN Reason: INSOMNIA Last Admin: 10/03/20 22:44 Dose: 3 mg Documented by: Metoprolol Tartrate (Metoprolol Tartrate 25 Mg Tablet) 25 mg PO BID [facility] Last Admin: 10/04/20 22:31 Dose: 25 mg Documented by: Miscellaneous Information (Inhaler, Assist Devices 1 Each Spacer) 1 each INH ALATION Q4HWA [facility] Last Admin: 10/05/20 05:53 Dose: 1 each Documented by: Multivitamins (Multivitamins,Therapeutic Tablet) 1 tablet PO DINNER [facility] Last Admin: 10/04/20 16:36 Dose: 1 tablet Documented by: Ondansetron HCl (Ondansetron 4 Mg/2 Ml Vial) 4 mg IV Q8H PRN PRN PRN Reason: NAUSEA/VOMITING Sodium Chloride (0.9% Saline Lock 10 Ml Syringe) 10 - 40 ml IV UD PRN PRN Reason: Closed End PICC Flush Last Admin: 10/02/20 20:30 Dose: 20 ml Documented by: Sodium Chloride (0.9 % Nacl (Sterile) Posiflush 10 Ml) 10 - 40 ml IV UD PRN PRN Reason: Port access or dressing change Sodium Chloride (0.9% Saline Lock 10 Ml Syringe) 10 - 40 ml IV UD PRN PRN Reason: SALINE FLUSH STROKE Vital Signs/Narrative: Vital Signs Temp Pulse Resp BP Pulse Ox 10/05/20 05:51 98.0 F 66 16 94/62 97 10/05/20 04:59 65 17 96 10/05/20 03:32 65 Medical Necessity - Tobacco Use Smoking Status: Former smoker Assessment/Plan All Active Problems (Last Reviewed 09/28/20 @ 07:[address] Rock Shen MD) SARS (severe acute respiratory syndrome) (Acute) COVID-19 (Acute) Acute kidney injury (Acute) Acute and chronic respiratory failure with hypoxia (Acute) COPD exacerbation (Acute) The patient is a 60 y/o M w/ PMHx: Chronic Severe COPD with Chronic Hypoxic Respiratory Failure, Obesity, CAD s/p PCI, Anxiety, HTN, HLD who presented to the [facility] ED on 09/28/20 with history of progressively worsening dyspnea, worse with exertion, cough with subjective chills with no fever x1 week. 1. Acute Severe Sepsis secondary to Acute on chronic hypoxic respiratory failure secondary to acute COVID-19 Pneumonia associated elevated LFTs and Acute Rhinovirus URI complicated by underlying severe COPD with Acute Exacerbation: Patient admitted to the ICU initially following ED evaluation with noted positive Covid PCR, elevated WBC with left shift, lactic acid elevated, chest x- ray with bilateral perihilar pulmonary infiltrates with a positive Covid antigen testing, BiPAP usage initiated secondary to significant status, patient ev entually transition to AVAPS with usage nightly with wean of oxygen requirement to home 4 L nasal cannula during the day, completed course of remdesivir, continued on Decadron with transition to home chronic prednisone once appropriate with close monitoring of blood sugars, continued inhalers, continued currently on Zosyn therapy per pulmonary medicine discretion although sputum culture without growth noted with current plan for completion of 7-day course with initiation on 09/28/20 with completion on 10/05/20, PCR with positive rhinovirus, also continued on chronic azithromycin regimen, encourage aggressive I-S, consultation with infectious disease per protocol, PT/OT/case management consultations for discharge planning. 10/04/20 oxygenation trial with significant symptomatic presentation noted to be lightheaded and dizzy with aggressive attempts requiring increased oxygen requirements. Urged continued incentive spirometer and continue movement in the room with Per discussion with pulmonary medicine plan reassessment 10/06/2020 a.m. for discharge planning and if continued 6 L or less usage at rest and with activity although it had been on 4 L which is patient baseline then will plan discharge to home if symptomatically appropriate for discharge. Would plan 2-week follow-up with pulmonary medicine at discharge. Upon discharge to home will continue trilogy nightly at home. 2. Acute kidney injury: Secondary to acute presentation as noted #1, admission BUN/Cr 29/2.01, prior baseline creatinine noted to be 1.0, complicated by #1 presentation given avoidance of aggressive hydration, clinically improved, 10/02/2020 BUN/creatinine 24/1.06--> 10/05/20 BUN/creatinine 17/0.95, resolved. Continue to monitor with noted resumption of nephrotoxic regimen given result ANNETTE. 3. Chronic normocytic anemia, iron deficiency: Admission hemoglobin 12.9, 10/05/20 hemoglobin 10.5, baseline appears 9-10, continue to monitor closely, continue iron supplementation. 4. CAD: Status post PCI, initially mildly hypotensive upon presentation, continued on aspirin, Plavix, metoprolol, will plan resumption of patient Lasix therapy given improvement in renal function, continue patient metoprolol, resume losartan given renal function improvement concurrently with alterations as needed, continue statin therapy. 5. Chronic diastolic CHF: Patient upon presentation had significant ANNETTE with transient hold on Lasix therapy, renal function has improved and near baseline, weight trending upward, reinitiated patient oral Lasix regimen as well as losartan therapy, continue aspirin, Plavix, beta-misti, statin therapy with hold as needed if renal function or presentation alters. 6. Diabetes mellitus type II: Hold oral home regimen, monitor blood sugars given Decadron usage, ADA diet, accu checks w/ ISS. 7. Anxiety and depression: We will continue patient home Wellbutrin regimen. 8. Obesity: Weight loss and lifestyle changes encouraged. 9. GERD: Continue patient home famotidine regimen. 10. DVT prophylaxis: SCDs, Lovenox. 11. CODE STATUS: Full code. Inpatient E&M: 80101 Subs Hosp L2
[2020-10-05 07:05] LABS: ALB/GLOB Ratio 0.6 RATIO (0.9-2.4); AST(SGOT) 151 U/L (15-37); Alanine Aminotransfer ALT/SGPT 220 U/L (16-61); Albumin, Serum 2.3 g/dL (3.2-5.0); Alkaline Phosphatase 76 U/L (45-117); Anion Gap 2 (5-15); BUN 17 mg/dL (7-18); BUN/Creat Ratio 17.9 RATIO (10-20); Calcium,Total 8.4 mg/dL (8.5-10.1); Chloride 102 mmol/L (98-107); Creatinine, Serum 0.95 mg/dL (0.70-1.30); EST Glomerular Filtration Rate 86 mL/min (>60); Est Glom Filt Rate - Afr Amer 104 mL/min (>60); Estimated Creatinine Clearance 86.97 ml/min; Globulin 3.7 g/dL (2.2-4.2); Glucose 101 mg/dL (74-106); Potassium 3.7 mmol/L (3.5-5.1); Sodium Level 141 mmol/L (136-145)
[2020-10-05 07:41] LABS: Eosinophil 2 % (0-5); Lymphocyte 30 % (19-41); Metamyelocyte 1 % (0-1); Monocyte 11 % (0-10); Myelocyte 2 (0-0); Neutrophil-Band 1 % (0-5); Neutrophil-Segmented 52 % (47-70); Promyelocyte 1 (0-0); Total Cells Counted 100 (MANUAL DIFF)
[2020-10-05 07:44] LABS: Differential Indicated MANUAL DIFF
[2020-10-05 07:46] LABS: Absolute Lymphocyte Count 3.44 X10^3/uL (0.83-4.51); Absolute Neutrophil Count 6.1 X10^3/uL (2.0-7.7); Hypochromasia 2+; Platelet Estimate MOD INC (ADEQ); Reactive Lymphocyte 1+; Red Cell Morphology N CYTIC NORMAL (NORM C&C)
[2020-10-05] MEDS: Enoxaparin 30 MG/0.3 ML Syringe SC ×2 (08:42→22:15)
[2020-10-05] MEDS: buPROPion 100 MG Tablet PO ×2 (08:42→18:09)
[2020-10-05] MEDS: guaiFENesin 1,200 MG Tablet 1200 MG PO ×2 (08:43→18:10)
[2020-10-05] MEDS: Clopidogrel Bisulfate 75 MG Tablet PO (08:43)
[2020-10-05] MEDS: Metoprolol Tartrate 25 MG Tablet PO ×2 (08:43→22:16)
[2020-10-05] MEDS: Famotidine 20 MG Tablet PO (08:44)
[2020-10-05] MEDS: Aspirin 81 MG TAB.CHEW PO (08:44)
[2020-10-05] MEDS: dexAMETHasone 10 MG/ML Vial 6 MG IV (08:44)
[2020-10-05] MEDS: 0.9% Saline Lock 10 ML Syringe IV (08:46)
[2020-10-05 11:46] LABS: Bedside Glucose 100 mg/dL (70-110)
[2020-10-05] MEDS: Furosemide 40 MG Tablet PO ×2 (11:51→18:10)
[2020-10-05] MEDS: Insulin Lispro 100 UNIT/ML INSULN.PEN SC ×3 (11:52→22:16)
[2020-10-05 14:41] LABS: Bedside Glucose 191 mg/dL (70-110)
[2020-10-05] MEDS: Losartan Potassium 25 MG Tablet PO (15:22)
[2020-10-05] MEDS: Ferrous Sulfate 325 MG Tablet PO (18:09)
[2020-10-05] MEDS: Atorvastatin Calcium 40 MG Tablet PO (18:10)
[2020-10-05] MEDS: Multivitamins,Therapeutic Tablet 1 TABLET PO (18:10)
[2020-10-05 18:30] LABS: Bedside Glucose 225 mg/dL (70-110)
[2020-10-05] MEDS: traZODone 50 MG Tablet PO (22:16)
[2020-10-05 22:31] LABS: Bedside Glucose 187 mg/dL (70-110)
[2020-10-06] VITALS (21 sets, daily range): BP systolic 80–104; BP diastolic 44–57; PULSE 64–83; RESP 12–22; TEMP 36.3–36.8; O2SAT 94–98
[2020-10-06 06:01] LABS: Hematocrit 38.3 % (40-54); Hemoglobin 10.8 g/dL (13.0-16.5); Mean Corp Hgb Conc 28.2 g/dL (32-36); Mean Corpuscular Hgb 24.1 pg (27.0-32.0); Mean Corpuscular Volume 85.3 fL (80-94); Mean Platelet Vol. 9.2 fl (6.2-12.0); POSITIVE COUNT YES; POSITIVE MORPHOLOGY YES; Platelet Count 616 K/mm3 (150-450); RBC Distribution Width CV 15.9 % (11.6-14.6); RBC Distribution Width SD 49.4 fl (35.1-43.9); Red Blood Count 4.49 M/mm3 (4.6-6.2); White Blood Count 13.8 K/mm3 (4.4-11.0)
[2020-10-06 06:29] LABS: ALB/GLOB Ratio 0.6 RATIO (0.9-2.4); AST(SGOT) 87 U/L (15-37); Alanine Aminotransfer ALT/SGPT 196 U/L (16-61); Albumin, Serum 2.3 g/dL (3.2-5.0); Alkaline Phosphatase 76 U/L (45-117); Anion Gap 5 (5-15); BUN 18 mg/dL (7-18); BUN/Creat Ratio 16.1 RATIO (10-20); Calcium,Total 8.4 mg/dL (8.5-10.1); Chloride 102 mmol/L (98-107); Creatinine, Serum 1.12 mg/dL (0.70-1.30); EST Glomerular Filtration Rate 71 mL/min (>60); Est Glom Filt Rate - Afr Amer 86 mL/min (>60); Estimated Creatinine Clearance 73.77 ml/min; Globulin 3.8 g/dL (2.2-4.2); Glucose 126 mg/dL (74-106); Protein, Total 6.1 g/dL (6.4-8.2); Sodium Level 141 mmol/L (136-145)
[2020-10-06 06:51] LABS: Differential Indicated MANUAL DIFF; Lymphocyte 16 % (19-41); Metamyelocyte 7 % (0-1); Monocyte 9 % (0-10); Neutrophil-Band 8 % (0-5); Neutrophil-Segmented 60 % (47-70); Scan Smear per Review Criteria MANUAL DIFF; Total Cells Counted 100 (MANUAL DIFF)
[2020-10-06 06:52] LABS: Absolute Neutrophil Count 9.4 X10^3/uL (2.0-7.7); Hypochromasia 1+; Platelet Estimate SLT INC (ADEQ); Red Cell Morphology N CYTIC NORMAL (NORM C&C)
[2020-10-06] MEDS: INHALER, ASSIST DEVICES 1 EACH SPACER INHALATION ×4 (07:31→17:40)
[2020-10-06 07:40] LABS: Bedside Glucose 113 mg/dL (70-110)
[2020-10-06] MEDS: Clopidogrel Bisulfate 75 MG Tablet PO (10:04)
[2020-10-06] MEDS: buPROPion 100 MG Tablet PO ×2 (10:04→17:33)
[2020-10-06] MEDS: Azithromycin 250 MG Tablet PO (10:04)
[2020-10-06] MEDS: Famotidine 20 MG Tablet PO (10:05)
[2020-10-06] MEDS: Aspirin 81 MG TAB.CHEW PO (10:05)
[2020-10-06] MEDS: guaiFENesin 1,200 MG Tablet 1200 MG PO ×2 (10:05→17:33)
[2020-10-06] MEDS: dexAMETHasone 10 MG/ML Vial 6 MG IV (10:07)
[2020-10-06] MEDS: 0.9% Saline Lock 10 ML Syringe IV ×2 (10:08→17:37)
[2020-10-06] MEDS: Enoxaparin 30 MG/0.3 ML Syringe SC ×2 (10:10→21:03)
[2020-10-06] MEDS: Insulin Lispro 100 UNIT/ML INSULN.PEN SC ×3 (11:40→21:03)
[2020-10-06 11:51] LABS: Bedside Glucose 232 mg/dL (70-110)
[2020-10-06 12:10] LABS: Pathologist Review Reviewed
[2020-10-06 12:23] LABS: Pathologist Review Reviewed
[2020-10-06 12:27] LABS: Pathologist Review Reviewed
--- NOTE | 2020-10-06 12:49 | PN_ITS ---
Patient Problems: Active and Suspected Problems (Last Reviewed 09/28/20 @ 07:[address] Rock Shen MD) SARS (severe acute respiratory syndrome) (Acute) COVID-19 (Acute) Acute kidney injury (Acute) Acute and chronic respiratory failure with hypoxia (Acute) COPD exacerbation (Acute) Reason for Visit: COVID 19 Subjective: Breathing well at rest. However, when ambulating to BR and back, it takes 5 minutes to recuperate. Vitals/I&O's: Vital Signs Temp Pulse Resp BP Pulse Ox 36.3 C L 75 18 81/44 L 96 10/06/20 11:35 10/06/20 11:35 10/06/20 11:35 10/06/20 11:35 10/06/20 11:35 Oxygen Flow Rate (L/min) [ 4 AMBULATION with Oxygen] Oxygen Flow Rate (L/min) 4 Oxygen Delivery Method Nasal Cannula Weight: 105 kg Body Mass Index (BMI) 31.7 Intake and Output for Last 24 Hours 10/04/20 10/05/20 10/06/20 23:59 23:59 23:59 Intake Total 650 / 650 711.5 / 711.5 600 / 600 Output Total 1800 / 1800 1775 / 1775 1000 / 1000 Balance -1150 / -1150 -1063.5 / -1063.5 -400 / -400 General: Alert, No apparent distress HEENT: Atraumatic, Normocephalic Oral: Moist Mucosa, No Gingival or Mucosal Lesions/ Ulcerations Neck: No Nodes, Thyroid Normal Size and Texture Lungs: Clear to auscultation, Normal air movement, No rhonchi, No wheeze, No rales Cardiovascular: Regular rate, Regular Rhythm, Normal S1, Normal S2, No murmurs Abdomen: Bowel Sounds Present, Soft, Non Tender, Non-Distended, No Hepato- splenomegaly Extremities: No edema, No Calf Tenderness Skin: No rashes, No breakdown Psych/Mental Status: Normal Affect, Appropriate Laboratory Results 10/04/20 07:10: Diff Path Review Reviewed 10/05/20 06:20: Diff Path Review Reviewed 10/05/20 11:50: POC Glucose 191 H 10/05/20 16:25: POC Glucose 225 H 10/05/20 22:02: POC Glucose 187 H 10/06/20 05:10: WBC 13.8 H, RBC 4.49 L, Hgb 10.8 L, Hct 38.3 L, MCV 85.3, MCH 24.1 L, MCHC 28.2 L, RDW Std Deviation 49.4 H, RDW Coeff of Asael 15.9 H, Plt Count 616 H, MPV 9.2, Immature Gran % (Auto) [employer], Neut % (Auto) [employer], Lymph % (Auto) [employer], [place] % (Auto) [employer], Eos % (Auto) [employer], Baso % (Auto) [employer], Absolute Neuts (auto) 9.4 H, Absolute Lymphs (auto) 2.20, Total Counted 100, Neutrophils % (Manual) 60, Band Neutrophils % 8 H, Lymphocytes % (Manual) 16 L, Monocytes % (Manual) 9, Metamyelocytes % 7 H, Nucleated RBC % [employer], Diff Path Review Reviewed, Platelet Estimate SLT INC, RBC Morphology N CYTIC, Hypochromasia 1+ 10/06/20 05:10: Sodium 141, Potassium 4.0, Chloride 102, Carbon Dioxide 34.0 H, Anion Gap 5, BUN 18, Creatinine 1.12, Estim Creat Clear Calc 73.77, Est GFR (MDRD) Af Amer 86, Est GFR (MDRD) Non-Af 71, BUN/Creatinine Ratio 16.1, Glucose 126 H, Calcium 8.4 L, Total Bilirubin 0.40, AST 87 H, ALT 196 H, Alkaline Phosphatase 76, Total Protein 6.1 L, Albumin 2.3 L, Globulin 3.8, Albumin/Globulin Ratio 0.6 L 10/06/20 07:24: POC Glucose 113 H 10/06/20 11:39: POC Glucose 232 H Current Medications Acetaminophen (Acetaminophen 325 Mg Tablet) 650 mg PO Q6H PRN PRN PRN Reason: Pain Score 1-10/Temp > 100.7 F Last Admin: 10/02/20 08:24 Dose: 650 mg Documented by: Albuterol Sulfate (Albuterol Sulfate 8gm 60 Dose Inhaler (Floor Use-With Spacer)) 1 puff INHALATION Q4HWA.RT CATRACHITA Last Admin: 10/06/20 10:14 Dose: 1 puff Documented by: Albuterol Sulfate (Albuterol Sulfate 8gm 60 Dose Inhaler (Floor Use-With Spacer)) 1 puff INHALATION Q4H PRN PRN PRN Reason: Dyspnea, SOB Last Admin: 10/01/20 06:33 Dose: 1 puff Documented by: Aspirin (Aspirin 81 Mg Tab.Chew) 81 mg PO DAILY [facility] Last Admin: 10/06/20 10:05 Dose: 81 mg Documented by: Atorvastatin Calcium (Atorvastatin Calcium 40 Mg Tablet) 40 mg PO DINNER [facility] Last Admin: 10/05/20 18:10 Dose: 40 mg Documented by: Azithromycin (Azithromycin 250 Mg Tablet) 250 mg PO MoWeFr@1000 [facility] Last Admin: 10/06/20 10:04 Dose: 250 mg Documented by: Bupropion HCl (Bupropion 100 Mg Tablet) 100 mg PO BID@1000,1700 [facility] Last Admin: 10/06/20 10:04 Dose: 100 mg Documented by: Cholecalciferol (Cholecalciferol (Vit D3) 1,000 Unit (25mcg)) 1,000 unit PO DAILY [facility] Last Admin: 10/06/20 10:05 Dose: 1,000 unit Documented by: Clopidogrel Bisulfate (Clopidogrel Bisulfate 75 Mg Tablet) 75 mg PO DAILY [facility] Last Admin: 10/06/20 10:04 Dose: 75 mg Documented by: Dexamethasone Sodium Phosphate (Dexamethasone 10 Mg/Ml Vial) 6 mg IV DAILY [facility] Stop: 10/07/20 10:01 Last Admin: 10/06/20 10:07 Dose: 6 mg Documented by: Dextrose (Dextrose 50%-Water 25 Gm/50 Ml Disp.Syrin) 0 gm IV X1 PRN; Protocol PRN Reason: Hypoglycemia Enoxaparin Sodium (Enoxaparin 30 Mg/0.3 Ml Syringe) 30 mg SC BID [facility] Last Admin: 10/06/20 10:10 Dose: 30 mg Documented by: Famotidine (Famotidine 20 Mg Tablet) 20 mg PO DAILY [facility] Last Admin: 10/06/20 10:05 Dose: 20 mg Documented by: Ferrous Sulfate (Ferrous Sulfate 325 Mg Tablet) 325 mg PO DINNER [facility] Last Admin: 10/05/20 18:09 Dose: 325 mg Documented by: Furosemide (Furosemide 40 Mg Tablet) 40 mg PO BID@0800,1700 [facility] Last Admin: 10/06/20 10:16 Dose: Not Given Documented by: Glucagon (Glucagon 1 Mg/Ml Syringe) 1 mg IM .X1 PRN PRN Reason: Hypoglycemia Guaifenesin (Guaifenesin 1,200 Mg Tablet) 1,200 mg PO BID@1000,1700 [facility] Last Admin: 10/06/20 10:05 Dose: 1,200 mg Documented by: Sodium Chloride () 250 mls @ 15 mls/hr IV .[id number] PRN PRN Reason: Saline Flush Last Infusion: 10/05/20 15:36 Dose: 0 mls/hr Documented by: Sodium Chloride () 250 mls @ 15 mls/hr IV .[id number] PRN PRN Reason: Additional IVPB Infusion Insulin Human Lispro (Insulin Lispro 100 Unit/Ml Insuln.Pen) 0 unit SC [facility]; Protocol Last Admin: 10/06/20 11:40 Dose: 4 u Documented by: Losartan Potassium (Losartan Potassium 25 Mg Tablet) 25 mg PO 1400 [facility] Last Admin: 10/05/20 15:22 Dose: 25 mg Documented by: Melatonin (Melatonin 3 Mg Tablet) 3 mg PO QHS PRN PRN PRN Reason: INSOMNIA Last Admin: 10/03/20 22:44 Dose: 3 mg Documented by: Metoprolol Tartrate (Metoprolol Tartrate 25 Mg Tablet) 25 mg PO BID [facility] Last Admin: 10/06/20 10:07 Dose: Not Given Documented by: Miscellaneous Information (Inhaler, Assist Devices 1 Each Spacer) [facility] Last Admin: 10/06/20 10:14 Dose: 1 each Documented by: Multivitamins (Multivitamins,Therapeutic Tablet) 1 tablet PO DINNER [facility] Last Admin: 10/05/20 18:10 Dose: 1 tablet Documented by: Ondansetron HCl (Ondansetron 4 Mg/2 Ml Vial) 4 mg IV Q8H PRN PRN PRN Reason: NAUSEA/VOMITING Sodium Chloride (0.9% Saline Lock 10 Ml Syringe) 10 - 40 ml IV UD PRN PRN Reason: Closed End PICC Flush Last Admin: 10/06/20 10:08 Dose: 10 ml Documented by: Sodium Chloride (0.9 % Nacl (Sterile) Posiflush 10 Ml) 10 - 40 ml IV UD PRN PRN Reason: Port access or dressing change Sodium Chloride (0.9% Saline Lock 10 Ml Syringe) 10 - 40 ml IV UD PRN PRN Reason: SALINE FLUSH Trazodone HCl (Trazodone 50 Mg Tablet) 50 mg PO QHS [facility] Last Admin: 10/05/20 22:16 Dose: 50 mg Documented by: STROKE Vital Signs/Narrative: Vital Signs Temp Pulse Resp BP Pulse Ox 10/06/20 11:35 36.3 C L 75 18 81/44 L 96 10/06/20 11:00 79 10/06/20 10:07 76 80/45 L 10/06/20 09:58 36.4 C L 76 18 80/45 L 97 Medical Necessity - Tobacco Use Smoking Status: Former smoker Assessment/Plan All Active Problems (Last Reviewed 09/28/20 @ 07:[address] Rock Shen MD) SARS (severe acute respiratory syndrome) (Acute) COVID-19 (Acute) Acute kidney injury (Acute) Acute and chronic respiratory failure with hypoxia (Acute) COPD exacerbation (Acute) 1. Severe sepsis * 2/2 COVID 19 pneumonia * resolved 2. Acute on chronic hypoxic respiratory failure * 2/2 COVID 19 on top COPD, chronic resp failure (on 4 l/m at baseline) * still with SELF * +1.2 liters positive * start IV furosemide 3. Acute COVID 19 pneumonia * dexa through 10/07 * completed rem-d 4. ANNETTE * resolved 5. CAD * stable 6. Anemia 7. chronic HFrEF * IV lasix * hold ARB given hypotension 8. DM2 * resume metformin * SSI 9. VTE prophylaxis: enoxaparin. 10. disposition: TBD. hopefully home in 1-2 days Inpatient E&M: 21363 Subs Hosp L2
--- NOTE | 2020-10-06 14:09 | CASEMGMT ---
RN CM Note: attempted to call into room to discuss homegoing needs for tomorrow. Pt did not answer phone. Shyam SORIANO RN ACM
--- NOTE | 2020-10-06 16:08 | CON.PCM_ITS ---
Problem List (1) COVID-19 Status: Acute Reason for Consult: covid Consulted by: Dr. Tomas History of Present Illness: The patient is a 60 year old M on 4L [place] home O2, presented 09/28 with fall, syncope, and cough. Lives with who is (+) but asymptomatic, also with child and grandchild who have been healthy. Came to ED, started on remdesivir, dex. Feeling better, still fatigue and dyspnea with exertion. Full ROS performed and neg except as noted above. - Medical History Past Medical History (Chronic Problems): Chronic Problems (Last Reviewed 09/28/20 @ 07:[address] 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 classification (Chronic) FEV1 20% of predicted Type 2 diabetes mellitus (Chronic) Congestive heart failure (Chronic) MICHELLE (obstructive sleep apnea) (Chronic) Trilogy with 2 LPM oxygen bleed Anxiety (Chronic) Presence of stent in coronary artery (Chronic ~07/2006) [facility] w/stenting to prox RCA Atherosclerotic heart disease of [place] coronary artery without angina pectoris (Chronic) [facility] w/stenting to prox RCA 07/15 Chronic respiratory failure with hypoxia and hypercapnia (Chronic) COPD (chronic obstructive pulmonary disease) (Chronic) Hyperlipidemia (Chronic) Allergies/Adverse Reactions: Allergies diazepam [From Valium] Adverse Reaction (Verified 09/28/20 05:28) Vomiting Home Medications: Ambulatory Orders Medication Instructions Recorded Aspirin [Aspirin, Baby] 81 mg PO DAILY@0800 10/04/14 Atorvastatin Calcium [Lipitor] 40 mg PO QHS 10/04/14 Clopidogrel Bisulfate [Plavix] 75 mg PO DAILY 10/04/14 Furosemide [Lasix] 40 mg PO BID 10/04/14 Multivitamins,Therapeutic 1 tab PO DAILY 10/04/14 [Multivitamin] Budesonide/Formoterol 160/4.5 2 puff INHALATION BID 02/24/15 [Symbicort 160/4.5 Mcg Inhaler (SP)] Roflumilast [Daliresp] 500 mcg PO DAILY 02/24/15 Famotidine [Pepcid] 20 mg PO BID 08/01/15 bupropion HCl 100 mg tablet 100 mg PO BID 10/25/17 Albuterol Aerosols [Ventolin 2.5 mg INHALATION Q2H PRN PRN #1 11/08/17 Aerosols] box albuterol sulfate 90 mcg/actuation 2 puff INHALATION Q2H PRN g 11/11/17 aerosol inhaler tiotropium bromide 18 mcg capsule 1 cap INHALATION DAILY 11/11/17 with inhalation device Cholecalciferol (VIT D3) [Vitamin 1,000 unit PO DAILY tab 02/13/18 D3] ipratropium bromide 0.02 % 0.5 mg INHALATION Q4H ml 05/01/18 solution for inhalation losartan 25 mg tablet 25 mg PO 1400 09/14/18 Budesonide Aerosol [Pulmicort 0.5 mg INHALATION BID 10/14/18 Respules] Clotrimazole 10 mg MUCOUS MEMBRANE TID PRN 07/24/19 Ferrous Sulfate 325 mg PO DINNER 07/24/19 Oxygen, Home [Home Oxygen] 4 - 6 lpm NASAL CONT 07/24/19 Potassium Chloride [Klor-Con M20] 20 meq PO BID 07/24/19 metformin 500 mg tablet 250 mg PO QHS tab 10/01/19 metformin 500 mg tablet 500 mg PO BREAKFAST tab 10/01/19 metoprolol tartrate 25 mg tablet 25 mg PO BID #180 tab 12/13/19 prednisone 10 mg tablet 10 mg PO QDAY #100 tab 07/21/20 MethylPREDNISolone DosePak [Medrol 4 mg PO UD #1 box 08/03/20 DosePak] azithromycin 250 mg tablet 250 mg PO QMWF #12 tab 08/28/20 prednisone 10 mg tablet 10 mg PO QDAY #30 tab 09/26/20 - Social History SMOKING STATUS:: Former smoker Vital Signs Temp Pulse Resp BP Pulse Ox 97.7 F L 83 18 87/47 L 94 10/06/20 13:35 10/06/20 15:00 10/06/20 13:35 10/06/20 13:35 10/06/20 13:35 Oxygen Flow Rate (L/min) [ 4 AMBULATION with Oxygen] Oxygen Flow Rate (L/min) 4 Oxygen Delivery Method Nasal Cannula Weight: 105 kg Body Mass Index (BMI) 31.7 Laboratory Tests Past 24 Hrs 10/04/20 10/05/20 10/06/20 07:10 06:20 05:10 WBC 13.8 H RBC 4.49 L Hgb 10.8 L Hct 38.3 L MCV 85.3 MCH 24.1 L MCHC 28.2 L RDW Std Deviation 49.4 H RDW Coeff of Asael 15.9 H Plt Count 616 H MPV 9.2 Immature Gran % (Auto) [employer] Neut % (Auto) [employer] Lymph % (Auto) [employer] [place] % (Auto) [employer] Eos % (Auto) [employer] Baso % (Auto) [employer] Absolute Neuts (auto) 9.4 H Absolute Lymphs (auto) 2.20 Total Counted 100 Neutrophils % (Manual) 60 Band Neutrophils % 8 H Lymphocytes % (Manual) 16 L Monocytes % (Manual) 9 Metamyelocytes % 7 H Nucleated RBC % [employer] Diff Path Review Reviewed Reviewed Reviewed Platelet Estimate SLT INC RBC Morphology N CYTIC Hypochromasia 1+ Sodium Potassium Chloride Carbon Dioxide Anion Gap BUN Creatinine Estim Creat Clear Calc Est GFR (MDRD) Af Amer Est GFR (MDRD) Non-Af BUN/Creatinine Ratio Glucose Calcium Total Bilirubin AST ALT Alkaline Phosphatase Total Protein Albumin Globulin Albumin/Globulin Ratio 10/06/20 05:10 WBC RBC Hgb Hct MCV MCH MCHC RDW Std Deviation RDW Coeff of Asael Plt Count MPV Immature Gran % (Auto) Neut % (Auto) Lymph % (Auto) [place] % (Auto) Eos % (Auto) Baso % (Auto) Absolute Neuts (auto) Absolute Lymphs (auto) Total Counted Neutrophils % (Manual) Band Neutrophils % Lymphocytes % (Manual) Monocytes % (Manual) Metamyelocytes % Nucleated RBC % Diff Path Review Platelet Estimate RBC Morphology Hypochromasia Sodium 141 Potassium 4.0 Chloride 102 Carbon Dioxide 34.0 H Anion Gap 5 BUN 18 Creatinine 1.12 Estim Creat Clear Calc 73.77 Est GFR (MDRD) Af Amer 86 Est GFR (MDRD) Non-Af 71 BUN/Creatinine Ratio 16.1 Glucose 126 H Calcium 8.4 L Total Bilirubin 0.40 AST 87 H ALT 196 H Alkaline Phosphatase 76 Total Protein 6.1 L Albumin 2.3 L Globulin 3.8 Albumin/Globulin Ratio 0.6 L - Other Studies Radiology: [] reviewed Other Studies: [] Route of nutrition/ use of supplements: [] Nutritional Intake: [] IV Site: [] Rashid Catheter: [] - Physical Exam General: Alert, Oriented x3, Cooperative, No apparent distress HEENT: Atraumatic, PERRLA, EOMI Neck: Supple, No Nodes Lungs: Clear to auscultation, Diminished Cardiovascular: Regular rate, Regular Rhythm Abdomen: Soft, Non Tender, Non-Distended Extremities: No edema Skin: No rashes IV Site: Peripheral, without redness Musculoskeletal: No Tenderness to Palpation of Joints or Extremities Neurological: Cranial nerves II-XII grossly intact - Assessment/Plan Antibiotics: [] Assessment/Plan: [] Active and Suspected Problems (Last Reviewed 09/28/20 @ 07:[address] Rock Shen MD) SARS (severe acute respiratory syndrome) (Acute) COVID-19 (Acute) Acute kidney injury (Acute) Acute and chronic respiratory failure with hypoxia (Acute) COPD exacerbation (Acute) covid and rhinovirus on 4L home O2 with h/o copd - completed remdesivir. On dex. Seen by pulm. is (+) but asymptomatic. Sx started around 09/28 with syncope at home. D-dimer was 2.4, on lovenox 30mg bid. Will change dex to po. Plan on quarantine until 10/18/20. Recommend discharge on low dose xarelto 10mg daily or eliquis 2.5mg bid for 2 weeks. ANNETTE resolved. Will follow, thank you
[2020-10-06] MEDS: Atorvastatin Calcium 40 MG Tablet PO (17:33)
[2020-10-06] MEDS: Ferrous Sulfate 325 MG Tablet PO (17:33)
[2020-10-06] MEDS: metFORMIN HCl 500 MG Tablet 250 MG PO (17:33)
[2020-10-06] MEDS: Multivitamins,Therapeutic Tablet 1 TABLET PO (17:33)
[2020-10-06] MEDS: Furosemide 40 MG/4 ML Vial IV (17:35)
[2020-10-06 17:50] LABS: Bedside Glucose 220 mg/dL (70-110)
[2020-10-06] MEDS: Ipratropium 0.5 MG/2.5 ML SOLUTION INHALATION (20:25)
[2020-10-06] MEDS: traZODone 50 MG Tablet PO (21:04)
[2020-10-06 21:15] LABS: Bedside Glucose 186 mg/dL (70-110)
[2020-10-07] VITALS (10 sets, daily range): BP systolic 96–103; BP diastolic 57–66; PULSE 68–100; RESP 12–20; TEMP 36.2–36.7; O2SAT 86–96
[2020-10-07 07:02] LABS: Hematocrit 37.3 % (40-54); Hemoglobin 10.5 g/dL (13.0-16.5); Mean Corp Hgb Conc 28.2 g/dL (32-36); Mean Corpuscular Hgb 24.2 pg (27.0-32.0); Mean Corpuscular Volume 86.1 fL (80-94); Mean Platelet Vol. 8.9 fl (6.2-12.0); POSITIVE COUNT YES; POSITIVE MORPHOLOGY YES; Platelet Count 607 K/mm3 (150-450); RBC Distribution Width CV 16.1 % (11.6-14.6); RBC Distribution Width SD 50.4 fl (35.1-43.9); Red Blood Count 4.33 M/mm3 (4.6-6.2)
[2020-10-07 07:03] LABS: Differential Indicated MANUAL DIFF
[2020-10-07 07:32] LABS: ALB/GLOB Ratio 0.8 RATIO (0.9-2.4); AST(SGOT) 42 U/L (15-37); Absolute Neutrophil Count 6.8 X10^3/uL (2.0-7.7); Alanine Aminotransfer ALT/SGPT 158 U/L (16-61); Albumin, Serum 2.5 g/dL (3.2-5.0); Alkaline Phosphatase 77 U/L (45-117); Anion Gap 1 (5-15); BUN 18 mg/dL (7-18); BUN/Creat Ratio 17.6 RATIO (10-20); Calcium,Total 8.5 mg/dL (8.5-10.1); Chloride 100 mmol/L (98-107); Creatinine, Serum 1.02 mg/dL (0.70-1.30); EST Glomerular Filtration Rate 79 mL/min (>60); Est Glom Filt Rate - Afr Amer 96 mL/min (>60); Globulin 3.2 g/dL (2.2-4.2); Glucose 158 mg/dL (74-106); Lymphocyte 41 % (19-41); Metamyelocyte 1 % (0-1); Monocyte 7 % (0-10); Myelocyte 1 (0-0); Neutrophil-Segmented 49 % (47-70); Promyelocyte 1 (0-0); Protein, Total 5.7 g/dL (6.4-8.2); Sodium Level 140 mmol/L (136-145)
[2020-10-07 07:33] LABS: Absolute Lymphocyte Count 5.72 X10^3/uL (0.83-4.51)
[2020-10-07 07:34] LABS: Atypical Lymphocyte 2+ %; Platelet Estimate MKD INC (ADEQ); Red Cell Morphology NORM C+C NORMAL (NORM C&C)
[2020-10-07 08:21] LABS: Bedside Glucose 135 mg/dL (70-110)
[2020-10-07] MEDS: Ipratropium 0.5 MG/2.5 ML SOLUTION INHALATION (08:42)
[2020-10-07] MEDS: Famotidine 20 MG Tablet PO (09:36)
[2020-10-07] MEDS: buPROPion 100 MG Tablet PO (09:36)
[2020-10-07] MEDS: Aspirin 81 MG TAB.CHEW PO (09:36)
[2020-10-07] MEDS: metFORMIN HCl 500 MG Tablet PO (09:36)
[2020-10-07] MEDS: guaiFENesin 1,200 MG Tablet 1200 MG PO (09:36)
[2020-10-07] MEDS: Furosemide 40 MG/4 ML Vial IV (09:36)
[2020-10-07] MEDS: Clopidogrel Bisulfate 75 MG Tablet PO (09:36)
[2020-10-07] MEDS: dexAMETHasone 4 MG Tablet 6 MG PO (09:36)
[2020-10-07] MEDS: Enoxaparin 30 MG/0.3 ML Syringe SC (09:37)
[2020-10-07] MEDS: INHALER, ASSIST DEVICES 1 EACH SPACER INHALATION ×2 (09:38→13:06)
[2020-10-07 11:40] LABS: Pathologist Review Reviewed
--- NOTE | 2020-10-07 12:32 | DCINST_ITS ---
- Discharge Diagnoses Current Active Problems: Current Active and Chronic Problems (Last Reviewed 09/28/20 @ 07:[address] Rock Shen MD) SARS (severe acute respiratory syndrome) (Acute) COVID-19 (Acute) Essential hypertension (Chronic) Acute kidney injury (Acute) Acute and chronic respiratory failure with hypoxia (Acute) COPD exacerbation (Acute) Stage 4 very severe COPD by GOLD classification (Chronic) FEV1 20% of predicted Type 2 diabetes mellitus (Chronic) Congestive heart failure (Chronic) MICHELLE (obstructive sleep apnea) (Chronic) Trilogy with 2 LPM oxygen bleed Anxiety (Chronic) Presence of stent in coronary artery (Chronic ~07/2006) [facility] w/stenting to prox RCA Atherosclerotic heart disease of [place] coronary artery without angina pectoris (Chronic) [facility] w/stenting to prox RCA 07/15 Chronic respiratory failure with hypoxia and hypercapnia (Chronic) COPD (chronic obstructive pulmonary disease) (Chronic) Hyperlipidemia (Chronic) You will use the following diet at home:: Calorie/Carbohydrate Controlled (specify 1200, 1400, etc) - 1800 calories/day Your food should be the consistency of: Regular Your liquids should be the consistency of: Regular/Thin Discharge Activity: Return to Normal Activity Call your doctor if you observe: Fever of 101 or Higher, Shortness of breath Additional Instructions: Self isolate for at least 21 days since symptoms began through 10/18/2020 AND at least one day (24 hours) have passed since resolution of fever without the use of fever-reducing agents AND improvement of symptoms (e.g., cough, shortness of breath) When around people in the same room, wear a face mask. Individuals also in the room should wear a mask. If possible, use a different bathroom and bedroom. Perform adequate hand hygiene. Avoid sharing dishes, glasses, etc. Family members with close contact with you and/or postive for COVID-19 should follow these instructions. Allergies/Adverse Reactions: Allergies diazepam [From Valium] Adverse Reaction (Verified 09/28/20 05:28) Vomiting Medications to take at Discharge Aspirin [Aspirin, Baby] 81 mg PO DAILY@0800 10/04/14 Atorvastatin Calcium [Lipitor] 40 mg PO QHS 10/04/14 Clopidogrel Bisulfate [Plavix] 75 mg PO DAILY 10/04/14 Furosemide [Lasix] 40 mg PO BID 10/04/14 Multivitamins,Therapeutic [Multivitamin] 1 tab PO DAILY 10/04/14 Budesonide/Formoterol 160/4.5 [Symbicort 160/4.5 Mcg Inhaler (SP)] 2 puff INHALATION BID 02/24/15 Roflumilast [Daliresp] 500 mcg PO DAILY 02/24/15 Famotidine [Pepcid] 20 mg PO BID 08/01/15 bupropion HCl 100 mg tablet 100 mg PO BID 10/25/17 Albuterol Aerosols [Ventolin Aerosols] 2.5 mg INHALATION Q2H PRN PRN #1 box 11/08/17 albuterol sulfate 90 mcg/actuation aerosol inhaler 2 puff INHALATION Q2H PRN g 11/11/17 tiotropium bromide 18 mcg capsule with inhalation device 1 cap INHALATION DAILY 11/11/17 Cholecalciferol (VIT D3) [Vitamin D3] 1,000 unit PO DAILY tab 02/13/18 ipratropium bromide 0.02 % solution for inhalation 0.5 mg INHALATION Q4H ml 05/01/18 losartan 25 mg tablet 25 mg PO 1400 09/14/18 Budesonide Aerosol [Pulmicort Respules] 0.5 mg INHALATION BID 10/14/18 Clotrimazole 10 mg MUCOUS MEMBRANE TID PRN 07/24/19 Ferrous Sulfate 325 mg PO DINNER 07/24/19 Oxygen, Home [Home Oxygen] 4 - 6 lpm NASAL CONT 07/24/19 Potassium Chloride [Klor-Con M20] 20 meq PO BID 07/24/19 metformin 500 mg tablet 250 mg PO QHS tab 10/01/19 metformin 500 mg tablet 500 mg PO BREAKFAST tab 10/01/19 metoprolol tartrate 25 mg tablet 25 mg PO BID #180 tab 12/13/19 prednisone 10 mg tablet 10 mg PO QDAY #100 tab 07/21/20 azithromycin 250 mg tablet 250 mg PO QMWF #12 tab 08/28/20 prednisone 10 mg tablet 10 mg PO QDAY #30 tab 09/26/20 Apixaban [Eliquis] 2.5 mg PO BID #8 tab 10/07/20 The following prescriptions were given: Apixaban [Eliquis] 2.5 mg PO BID #8 tab Transmission Status: Pending to [facility] Primary Care Physician: Kenia Matthew MD [Primary Care Provider] - Within 2 Weeks Test Results: Test results from this visit will be discussed in further detail at your follow- up appointment, if applicable. Proposed Discharge Date: 10/07/20
--- NOTE | 2020-10-07 12:33 | DS.PCM_ITS ---
Discharge Date and Diagnosis - Problem List Patient Problems: Active and Suspected Problems (Last Reviewed 09/28/20 @ 07:[address] Rock Shen MD) SARS (severe acute respiratory syndrome) (Acute) COVID-19 (Acute) Acute kidney injury (Acute) Acute and chronic respiratory failure with hypoxia (Acute) COPD exacerbation (Acute) Date of Admission: 09/28/20 Date of Discharge: 10/07/20 - Primary Discharge Diagnosis Acute Problems: Active Problems (Last Reviewed 09/28/20 @ 07:[address] oRck Shen MD) SARS (severe acute respiratory syndrome) (Acute) COVID-19 (Acute) Acute kidney injury (Acute) Acute and chronic respiratory failure with hypoxia (Acute) COPD exacerbation (Acute) - Secondary Discharge Diagnosis Chronic Problems: Chronic Problems (Last Reviewed 09/28/20 @ 07:[address] 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 classification (Chronic) FEV1 20% of predicted Type 2 diabetes mellitus (Chronic) Congestive heart failure (Chronic) MICHELLE (obstructive sleep apnea) (Chronic) Trilogy with 2 LPM oxygen bleed Anxiety (Chronic) Presence of stent in coronary artery (Chronic ~07/2006) [facility] w/stenting to prox RCA Atherosclerotic heart disease of [place] coronary artery without angina pectoris (Chronic) [facility] w/stenting to prox RCA 07/15 Chronic respiratory failure with hypoxia and hypercapnia (Chronic) COPD (chronic obstructive pulmonary disease) (Chronic) Hyperlipidemia (Chronic) Hospital Course and Treatment Imaging Results: Clinical Impression(s) from Imaging Studies Chest X-Ray 09/28/20 05:23 IMPRESSION: There are new bilateral perihilar pulmonary infiltrates. The lungs are well expanded There is no demonstrated pleural abnormality. Normal size heart. Electronically Signed: Mario Alberto Sandoval MD at 6:16 EST , Service support , Chest X-Ray 09/30/20 20:15 IMPRESSION: Catheter placement. Bilateral pneumonia. Electronically Signed: Josafat Carrasco MD at 21:31 EST , Service support , Operations: None Procedures: None Summary of Care Provided: The patient is a 60 year old M presents with shortness of breath. Patient was found to have COVID-19. Patient completed treatment with remdesivir as well as dexamethasone. 1. Severe sepsis * 2/2 COVID 19 pneumonia * resolved 2. Acute on chronic hypoxic respiratory failure * 2/2 COVID 19 on top COPD, chronic resp failure (on 4 l/m at baseline) * improved * complete 2 weeks of anticoagulation. 3. Acute COVID 19 pneumonia * dexa through 10/07 * completed rem-d 4. ANNETTE * resolved 5. CAD * stable 6. Anemia 7. chronic HFrEF * PO furosemide * hold ARB given hypotension 8. DM2 * resume metformin * SSI[] Patient Problems: Active and Suspected Problems (Last Reviewed 09/28/20 @ 07:[address] Rock Shen MD) SARS (severe acute respiratory syndrome) (Acute) COVID-19 (Acute) Acute kidney injury (Acute) Acute and chronic respiratory failure with hypoxia (Acute) COPD exacerbation (Acute) - Physical Exam Vitals/I&O's: Vital Signs Temp Pulse Resp BP Pulse Ox 36.4 C L 92 18 96/57 L 93 10/07/20 09:29 10/07/20 10:59 10/07/20 09:29 10/07/20 09:42 10/07/20 09:56 Oxygen Flow Rate (L/min) [ 4 AMBULATION with Oxygen] Oxygen Flow Rate (L/min) 4 Oxygen Delivery Method Nasal Cannula Weight: 105.3 kg Body Mass Index (BMI) 31.7 Intake and Output for Last 24 Hours 10/05/20 10/06/20 10/07/20 23:59 23:59 23:59 Intake Total 711.5 / 711.5 1130 / 1370 240 / 240 Output Total 1775 / 1775 1600 / 2100 500 / 500 Balance -1063.5 / -1063.5 -470 / -730 -260 / -260 General: Alert, Cooperative, No apparent distress HEENT: Atraumatic, Normocephalic Oral: Moist Mucosa, No Gingival or Mucosal Lesions/ Ulcerations Neck: No Nodes, Thyroid Normal Size and Texture Lungs: Clear to auscultation, Normal air movement, No rhonchi, No wheeze Cardiovascular: Regular rate, Regular Rhythm, Normal S1, Normal S2 Abdomen: Bowel Sounds Present, Soft, Non Tender, Non-Distended, No Hepato- splenomegaly Extremities: No edema, No Calf Tenderness Laboratory Results 10/06/20 17:27: POC Glucose 220 H 10/06/20 20:56: POC Glucose 186 H 10/07/20 06:25: WBC 14.0 H, RBC 4.33 L, Hgb 10.5 L, Hct 37.3 L, MCV 86.1, MCH 24.2 L, MCHC 28.2 L, RDW Std Deviation 50.4 H, RDW Coeff of Asael 16.1 H, Plt Count 607 H, MPV 8.9, Neut % (Auto) Not Reportable, Absolute Neuts (auto) 6.8, Absolute Lymphs (auto) 5.72 H, Neutrophils % (Manual) 49, Lymphocytes % (Manual) 41, Monocytes % (Manual) 7, Metamyelocytes % 1, Myelocytes % 1 H, Promyelocytes % 1 H, Diff Path Review Reviewed, Atypical Lymphocytes 2+, Platelet Estimate MKD INC, RBC Morphology NORM C+C 10/07/20 06:25: Sodium 140, Potassium 4.0, Chloride 100, Carbon Dioxide 39.0 H, Anion Gap 1 L, BUN 18, Creatinine 1.02, Estim Creat Clear Calc 81.00, Est GFR (MDRD) Af Amer 96, Est GFR (MDRD) Non-Af 79, BUN/Creatinine Ratio 17.6, Glucose 158 H, Calcium 8.5, Total Bilirubin 0.30, AST 42 H, ALT 158 H, Alkaline Phosphatase 77, Total Protein 5.7 L, Albumin 2.5 L, Globulin 3.2, Albumin/Globulin Ratio 0.8 L 10/07/20 08:12: POC Glucose 135 H Current Medications Acetaminophen (Acetaminophen 325 Mg Tablet) 650 mg PO Q6H PRN PRN PRN Reason: Pain Score 1-10/Temp > 100.7 F Last Admin: 10/02/20 08:24 Dose: 650 mg Documented by: Albuterol Sulfate (Albuterol Sulfate 8gm 60 Dose Inhaler (Floor Use-With Spacer)) 1 puff INHALATION Q4HWA.RT CATRACHITA Last Admin: 10/07/20 09:37 Dose: 1 puff Documented by: Albuterol Sulfate (Albuterol Sulfate 8gm 60 Dose Inhaler (Floor Use-With Spacer)) 1 puff INHALATION Q4H PRN PRN PRN Reason: Dyspnea, SOB Last Admin: 10/01/20 06:33 Dose: 1 puff Documented by: Aspirin (Aspirin 81 Mg Tab.Chew) 81 mg PO DAILY [facility] Last Admin: 10/07/20 09:36 Dose: 81 mg Documented by: Atorvastatin Calcium (Atorvastatin Calcium 40 Mg Tablet) 40 mg PO DINNER [facility] Last Admin: 10/06/20 17:33 Dose: 40 mg Documented by: Azithromycin (Azithromycin 250 Mg Tablet) 250 mg PO MoWeFr@1000 [facility] Last Admin: 10/06/20 10:04 Dose: 250 mg Documented by: Bupropion HCl (Bupropion 100 Mg Tablet) 100 mg PO BID@1000,1700 [facility] Last Admin: 10/07/20 09:36 Dose: 100 mg Documented by: Cholecalciferol (Cholecalciferol (Vit D3) 1,000 Unit (25mcg)) 1,000 unit PO DAILY [facility] Last Admin: 10/07/20 09:36 Dose: 1,000 unit Documented by: Clopidogrel Bisulfate (Clopidogrel Bisulfate 75 Mg Tablet) 75 mg PO DAILY [facility] Last Admin: 10/07/20 09:36 Dose: 75 mg Documented by: Dextrose (Dextrose 50%-Water 25 Gm/50 Ml Disp.Syrin) 0 gm IV X1 PRN; Protocol PRN Reason: Hypoglycemia Enoxaparin Sodium (Enoxaparin 30 Mg/0.3 Ml Syringe) 30 mg SC BID [facility] Last Admin: 10/07/20 09:37 Dose: 30 mg Documented by: Famotidine (Famotidine 20 Mg Tablet) 20 mg PO DAILY [facility] Last Admin: 10/07/20 09:36 Dose: 20 mg Documented by: Ferrous Sulfate (Ferrous Sulfate 325 Mg Tablet) 325 mg PO DINNER [facility] Last Admin: 10/06/20 17:33 Dose: 325 mg Documented by: Furosemide (Furosemide 40 Mg/4 Ml Vial) 40 mg IV BID@1000,1800 [facility] Last Admin: 10/07/20 09:36 Dose: 40 mg Documented by: Glucagon (Glucagon 1 Mg/Ml Syringe) 1 mg IM .X1 PRN PRN Reason: Hypoglycemia Guaifenesin (Guaifenesin 1,200 Mg Tablet) 1,200 mg PO BID@1000,1700 [facility] Last Admin: 10/07/20 09:36 Dose: 1,200 mg Documented by: Heparin Sodium (Beef Lung) (Heparin Pf Lock 10 Units/Ml 50 Units/5 Ml Syringe) 50 units IV UD PRN PRN Reason: PICC Line Heparin Flush Sodium Chloride () 250 mls @ 15 mls/hr IV .[id number] PRN PRN Reason: Saline Flush Last Infusion: 10/07/20 06:51 Dose: Infused Documented by: Sodium Chloride () 250 mls @ 15 mls/hr IV .[id number] PRN PRN Reason: Additional IVPB Infusion Sodium Chloride () 250 mls @ 15 mls/hr IV .[id number] PRN PRN Reason: Saline Flush Sodium Chloride () 250 mls @ 15 mls/hr IV .[id number] PRN PRN Reason: Additional IVPB Infusion Insulin Human Lispro (Insulin Lispro 100 Unit/Ml Insuln.Pen) 0 unit SC ACHS [facility]; Protocol Last Admin: 10/07/20 08:44 Dose: Not Given Documented by: Ipratropium [place] (Ipratropium 0.5 Mg/2.5 Ml Solution) 0.5 mg INHALATION Q6HWA.RT [facility] Last Admin: 10/07/20 08:42 Dose: 0.5 mg Documented by: Melatonin (Melatonin 3 Mg Tablet) 3 mg PO QHS PRN PRN PRN Reason: INSOMNIA Last Admin: 10/03/20 22:44 Dose: 3 mg Documented by: Metformin HCl (Metformin Hcl 500 Mg Tablet) 250 mg PO DINNER [facility] Last Admin: 10/06/20 17:33 Dose: 250 mg Documented by: Metformin HCl (Metformin Hcl 500 Mg Tablet) 500 mg PO BREAKFAST [facility] Last Admin: 10/07/20 09:36 Dose: 500 mg Documented by: Metoprolol Tartrate (Metoprolol Tartrate 25 Mg Tablet) 25 mg PO BID [facility] Last Admin: 10/07/20 09:42 Dose: Not Given Documented by: Miscellaneous Information (Inhaler, Assist Devices 1 Each Spacer) 1 each INHALATION Q4HWA [facility] Last Admin: 10/07/20 09:38 Dose: 1 each Documented by: Multivitamins (Multivitamins,Therapeutic Tablet) 1 tablet PO DINNER [facility] Last Admin: 10/06/20 17:33 Dose: 1 tablet Documented by: Ondansetron HCl (Ondansetron 4 Mg/2 Ml Vial) 4 mg IV Q8H PRN PRN PRN Reason: NAUSEA/VOMITING Sodium Chloride (0.9% Saline Lock 10 Ml Syringe) 10 - 40 ml IV UD PRN PRN Reason: Closed End PICC Flush Last Admin: 10/06/20 17:37 Dose: 10 ml Documented by: Sodium Chloride (0.9 % Nacl (Sterile) Posiflush 10 Ml) 10 - 40 ml IV UD PRN PRN Reason: Port access or dressing change Sodium Chloride (0.9% Saline Lock 10 Ml Syringe) 10 - 40 ml IV UD PRN PRN Reason: SALINE FLUSH Sodium Chloride (0.9% Saline Lock 10 Ml Syringe) 10 - 40 ml IV UD PRN PRN Reason: SALINE FLUSH Trazodone HCl (Trazodone 50 Mg Tablet) 50 mg PO QHS [facility] Last Admin: 10/06/20 21:04 Dose: 50 mg Documented by: Discharge Diet: No Restrictions Discharge Activity: Return to Normal Activity Call your doctor if you observe: Fever of 101 or Higher, Shortness of breath Home Medications: Medications to take at Discharge Aspirin [Aspirin, Baby] 81 mg PO DAILY@0800 10/04/14 Atorvastatin Calcium [Lipitor] 40 mg PO QHS 10/04/14 Clopidogrel Bisulfate [Plavix] 75 mg PO DAILY 10/04/14 Furosemide [Lasix] 40 mg PO BID 10/04/14 Multivitamins,Therapeutic [Multivitamin] 1 tab PO DAILY 10/04/14 Budesonide/Formoterol 160/4.5 [Symbicort 160/4.5 Mcg Inhaler (SP)] 2 puff INHALATION BID 02/24/15 Roflumilast [Daliresp] 500 mcg PO DAILY 02/24/15 Famotidine [Pepcid] 20 mg PO BID 08/01/15 bupropion HCl 100 mg tablet 100 mg PO BID 10/25/17 Albuterol Aerosols [Ventolin Aerosols] 2.5 mg INHALATION Q2H PRN PRN #1 box 11/08/17 albuterol sulfate 90 mcg/actuation aerosol inhaler 2 puff INHALATION Q2H PRN g 11/11/17 tiotropium bromide 18 mcg capsule with inhalation device 1 cap INHALATION DAILY 11/11/17 Cholecalciferol (VIT D3) [Vitamin D3] 1,000 unit PO DAILY tab 02/13/18 ipratropium bromide 0.02 % solution for inhalation 0.5 mg INHALATION Q4H ml 05/01/18 losartan 25 mg tablet 25 mg PO 1400 09/14/18 Budesonide Aerosol [Pulmicort Respules] 0.5 mg INHALATION BID 10/14/18 Clotrimazole 10 mg MUCOUS MEMBRANE TID PRN 07/24/19 Ferrous Sulfate 325 mg PO DINNER 07/24/19 Oxygen, Home [Home Oxygen] 4 - 6 lpm NASAL CONT 07/24/19 Potassium Chloride [Klor-Con M20] 20 meq PO BID 07/24/19 metformin 500 mg tablet 250 mg PO QHS tab 10/01/19 metformin 500 mg tablet 500 mg PO BREAKFAST tab 10/01/19 metoprolol tartrate 25 mg tablet 25 mg PO BID #180 tab 12/13/19 prednisone 10 mg tablet 10 mg PO QDAY #100 tab 07/21/20 azithromycin 250 mg tablet 250 mg PO QMWF #12 tab 08/28/20 prednisone 10 mg tablet 10 mg PO QDAY #30 tab 09/26/20 Apixaban [Eliquis] 2.5 mg PO BID #8 tab 10/07/20 Following Prescriptions Were Given to Patient: Apixaban [Eliquis] 2.5 mg PO BID #8 tab Transmission Status: Pending to [facility] Primary Care Physician: Kenia Matthew MD [Primary Care Provider] - Within 2 Weeks Disposition: Home Minutes spent on discharge:: 32 Patient Condition:: Fair Medical Necessity - Tobacco Use Smoking Status: Former smoker Meaningful Use Info Meaningful Use Diagnoses (Choose all that apply): None applicable Inpatient E&M: 75562 Disch Hosp
[2020-10-07 12:51] LABS: Bedside Glucose 169 mg/dL (70-110)
[2020-10-07] MEDS: Insulin Lispro 100 UNIT/ML INSULN.PEN SC (13:04)
== END 2020-10-07 16:04 | disposition home or self-care (01) | DRG 871 ==
LOC: ED 06:42 → ICU 07:20 → MS2 10-02 18:44
PROVIDERS: Family Medicine; Internal Medicine; Internal Medicine Critical Care Medicine; Admitting Provider Hospitalist; Emergency Provider Emergency Medicine; PCP Internal Medicine
DX: A41.89 Other specified sepsis (principal); U07.1 COVID-19; J96.21 Acute and chronic respiratory failure with hypoxia; J96.22 Acute and chronic respiratory failure with hypercapnia; J12.89 Other viral pneumonia; N17.9 Acute kidney failure, unspecified; J44.1 Chronic obstructive pulmonary disease with (acute) exacerbation; I50.42 Chronic combined systolic (congestive) and diastolic (congestive) heart failure; J44.0 Chronic obstructive pulmonary disease with (acute) lower respiratory infection; R65.20 Severe sepsis without septic shock; G47.33 Obstructive sleep apnea (adult) (pediatric); I25.10 Atherosclerotic heart disease of native coronary artery without angina pectoris; I11.0 Hypertensive heart disease with heart failure; E11.9 Type 2 diabetes mellitus without complications; F41.9 Anxiety disorder, unspecified; E78.5 Hyperlipidemia, unspecified; E66.01 Morbid (severe) obesity due to excess calories; Z68.32 Body mass index [BMI] 32.0-32.9, adult; F32.9 Major depressive disorder, single episode, unspecified; K21.9 Gastro-esophageal reflux disease without esophagitis; B97.89 Other viral agents as the cause of diseases classified elsewhere; D50.9 Iron deficiency anemia, unspecified; Z87.891 Personal history of nicotine dependence
CPT/HCPCS: 36415; 36569; 36600; 71045; 80048; 80053; 80076; 82803; 82962; 83605; 84075; 84145; 84484; 85025; 85379; 87040; 87070; 87205; 87426; 87633; 87635; 93005; 94002; 94003; 94640; 94667; 94668; 97110; 97116; 97162; 97166; 97530; 97535; 99285; J7030; J7050; J7120; A4216; J1940; U0002

== ENCOUNTER 2020-12-25 10:01 | Emergency (ER) | payer MEDICARE, MEDICAID, SELFPAY ==
[2020-09-28 08:29] VITALS: BMI 31.7
[2020-12-25] VITALS (10 sets, daily range): BP systolic 98–118; BP diastolic 62–92; PULSE 88–111; RESP 12–26; TEMP 36.6–37.1; O2SAT 93–99; BMI 33.8
--- NOTE | 2020-12-25 10:12 | EKG12_ITS ---
Test Reason : SOB Blood Pressure : / mmHG Vent. Rate : 087 BPM Atrial Rate : 087 BPM P-R Int : 118 ms QRS Dur : 094 ms QT Int : 348 ms P-R-T Axes : 000 047 036 degrees QTc Int : 418 ms Normal sinus rhythm Normal ECG Confirmed by ROMAN ROTHMAN, NAIF ([id number]), tape editor ANITA ALFARO ([id number]) on 12/29/2020 10:26:41 AM Referred By: Confirmed By:NAIF OWENS MD
--- NOTE | 2020-12-25 10:26 | ED.VIS.GEN ---
History of Present Illness Chief Complaint: Shortness of Breath Informant: Patient Narrative: 60-year-old male with history of COPD, CHF presenting with shortness of breath. He states that he has chronic shortness of breath and wears 4 L normally at home. He does do his own aerosols at home. Patient takes 10 mg of prednisone daily. Patient having significant shortness of breath and difficulty breathing overnight. On EMS arrival he appeared to be using accessory muscles and having difficulty breathing therefore they placed him on CPAP. He was given 1 DuoNeb and Solu-Medrol 125 mg. Patient currently on BiPAP and states he feels somewhat better. He is denying chest pain. He states he is not smoking. Past Medical History - Allergies and Home Meds Allergies/Adverse Reactions: Allergies diazepam [From Valium] Adverse Reaction (Verified 12/25/20 10:12) Vomiting Primary Care Physician: Kenia Matthew MD [Primary Care Provider] - Surgical History: - - Rotator cuff surgery Lives: Spouse/ Significant Other Smoking Status: Former smoker Alcohol: None Drugs: None - Family History Maternal Family History: Family History (Last Reviewed 09/28/20 @ 07:[address] Rock Shen MD) Mother Diabetes Father Heart disease CVA (cerebral vascular accident) Brother Diabetes Asthma Family History: Reports: Clotting Disorder - Mother with history of PE following an ankle surgery Paternal Family History: Family History (Last Reviewed 09/28/20 @ 07:[address] Rock Shen MD) Mother Diabetes Father Heart disease CVA (cerebral vascular accident) Brother Diabetes Asthma Family History: Reports: Heart Disease Review of Systems General: Denies: Chills, Fever, Sweats Eyes: Denies: Visual changes - bilaterally, Diplopia ENT: Denies: Rhinorrhea, Sore throat Cardiovascular: Denies: Chest pain, Palpitations Respiratory: Reports: Dyspnea, Cough, Dyspnea on exertion Gastrointestinal: Denies: Abdominal pain, Nausea, Vomiting, Diarrhea, Melena, Hematochezia Genitourinary: Denies: Dysuria, Hematuria, Frequency Musculoskeletal: Denies: Back pain, Extremity Pain Skin: Denies: Rash, Wounds Neurological: Denies: Headache, Weakness, Numbness Psych: Denies: Depression, Anxiety, Suicidal thoughts, Suicidal ideations, -, - Physical Exam Vital Signs/Narrative: Vital Signs Temp Pulse Resp BP Pulse Ox 12/25/20 10:12 98.8 F 99 12/25/20 10:09 98.8 F 92 22 H 98/64 99 12/25/20 10:02 98.8 F 92 22 H 98/64 99 Inital Vital Signs reviewed: Yes General: Obese, No Acute Distress, - - Currently comfortable on BiPAP Head: Normocephalic, Atraumatic Eyes: Perrl, EOMI ENT: Moist mucous membranes, No rhinorrhea Cardiovascular: Regular rate, Regular rhythm Respiratory: - - Bibasilar crackles. Negative for: Wheezing Abdomen: Soft, Nontender, Nondistended Extremities: Edema. Negative for: Calf Tenderness Skin: Normal color, No rash Neurological: Alert, Oriented x3, Cranial nerves II-XII grossly intact Psychological: Normal affect, Normal Mood Diagnostic/Tx/Re-eval Clinical Impression(s) from Imaging Studies Chest X-Ray 12/25/20 10:45 IMPRESSION: Hyperinflation and emphysematous changes with scarring at the lung bases and blunting of both costophrenic angles. Electronically Signed: Sanchez Blood MD at 11:18 EDT , Service support , Laboratory Data 12/25/20 12/25/20 12/25/20 10:20 10:20 10:20 WBC 14.1 H RBC 4.83 Hgb 12.4 L Hct 42.8 MCV 88.6 MCH 25.7 L MCHC 29.0 L RDW Std Deviation 49.9 H RDW Coeff of Asael 15.6 H Plt Count 465 H MPV 8.7 Immature Gran % (Auto) 1.100 H Neut % (Auto) 63.2 Lymph % (Auto) 22.9 Villalba % (Auto) 9.7 Eos % (Auto) 2.4 Baso % (Auto) 0.7 Absolute Neuts (auto) 8.9 H Absolute Lymphs (auto) 3.22 Nucleated RBC % 0 PT 12.2 INR 1.0 APTT 26.1 Specimen Type Sample Site pH Bicarbonate Actual Total CO2 Base Excess O2 Saturation O2 % ABG pCO2 ABG pO2 Paco Test O2 Delivery Device Clinical Comments Sodium 141 Potassium 3.7 Chloride 101 Carbon Dioxide 38.0 H Anion Gap 2 L BUN 18 Creatinine 1.33 H Estim Creat Clear Calc 62.12 Est GFR (MDRD) Af Amer 70 Est GFR (MDRD) Non-Af 58 L BUN/Creatinine Ratio 13.5 Glucose 113 H Lactic Acid Calcium 9.2 Total Bilirubin 0.30 AST 14 L ALT 23 Alkaline Phosphatase 129 H Total Protein 7.3 Albumin 3.3 Globulin 4.0 Albumin/Globulin Ratio 0.8 L Urine Color Urine Clarity Urine pH Ur Specific [place] Urine Protein Urine Glucose (UA) Urine Ketones Urine Occult Blood Urine Nitrite Urine Bilirubin Urine Urobilinogen Ur Leukocyte Esterase Urine RBC Urine WBC Ur Squamous Epith Cells Urine Bacteria Urine Mucus 12/25/20 12/25/20 12/25/20 10:20 10:26 12:30 WBC RBC Hgb Hct MCV MCH MCHC RDW Std Deviation RDW Coeff of Asael Plt Count MPV Immature Gran % (Auto) Neut % (Auto) Lymph % (Auto) Villalba % (Auto) Eos % (Auto) Baso % (Auto) Absolute Neuts (auto) Absolute Lymphs (auto) Nucleated RBC % PT INR APTT Specimen Type ART Sample Site R Radial pH 7.36 Bicarbonate Actual 36.5 H Total CO2 38 Base Excess 11 H O2 Saturation 99 O2 % 50 ABG pCO2 64.3 H ABG pO2 143 H Paco Test Positive O2 Delivery Device BiPAP Clinical Comments ipap 12 epap 6 Sodium Potassium Chloride Carbon Dioxide Anion Gap BUN Creatinine Estim Creat Clear Calc Est GFR (MDRD) Af Amer Est GFR (MDRD) Non-Af BUN/Creatinine Ratio Glucose Lactic Acid 1.3 Calcium Total Bilirubin AST ALT Alkaline Phosphatase Total Protein Albumin Globulin Albumin/Globulin Ratio Urine Color Yellow Urine Clarity Cloudy Urine pH 6.0 Ur Specific [place] 1.020 Urine Protein 30 H Urine Glucose (UA) Normal Urine Ketones Negative Urine Occult Blood 50 H Urine Nitrite Negative Urine Bilirubin Negative Urine Urobilinogen Normal Ur Leukocyte Esterase 500 H Urine RBC 0-5 SEEN Urine WBC 50-100 SEEN Ur Squamous Epith Cells 0-5 SEEN Urine Bacteria 1+ Urine Mucus 0 SEEN - Medical Decision Making 60-year-old male with shortness of breath and history of COPD and CHF. Currently comfortable on BiPAP. Patient had EKG performed on arrival which is sinus rhythm at 87 bpm without signs of ischemic changes. Patient does not appear to be wheezing but has already done a breathing treatment at home and received 1 from EMS. He is already received Solu-Medrol 125 mg. Patient was eventually weaned down to his baseline 4 L of O2. Chest x-ray as interpreted by myself shows slight blunting of the costophrenic angles without obvious infiltrates. Radiology does agree. CBC shows a leukocytosis of 14.1, hemoglobin 12.4, platelets 465. ABG shows a bicarb of 36.5, PCO2 64.3 O2 sat 99% patient CO2 does seem to wax and wane but he has been at this level before. He is alert and oriented. BMP shows a slight increase in his creatinine at 1.33, CO2 at 38 which appears his baseline. His other electrolytes are normal. Urinalysis shows consistency with UTI. Patient did complain of some mild dysuria. He will be started on Keflex 500 mg twice daily for UTI. Patient was given a second breathing treatment and feels improved. He was ambulated at the bedside by myself and maintain O2 sats 94%. Patient states that he does not feel that he needs to be hospitalized at this time and feels actually much improved. He normally takes 10 mg of prednisone daily however I will give him a burst for the next 2 days. Patient is given return precautions. Impression: 1. COPD exacerbation 2. UTI ED Disposition - Plan for ED Patient: Referrals: Kenia Matthew MD [Primary Care Provider] -
[2020-12-25 10:31] LABS: Allen Test Positive; Base Excess 11 mmol/L (-2 to +2); Bicarbonate 36.5 mmol/L (22-26); Blood Gas Specimen Type ART; FI02 50; O2 Delivery Device BiPAP; PO2 143 mmHG (75-100); SITE R Radial; SO2 99 % (95-99); Total Carbon Dioxide 38 mmol/L; pCO2 64.3 mmHg (35-45); pH 7.36 (7.35-7.45)
--- NOTE | 2020-12-25 10:45 | RAD_ITS ---
STUDY: X-RAY CHEST REASON FOR EXAM: Male, 60 years old. Hypoxia TECHNIQUE: Single AP portable view of the chest. COMPARISON: Comparison is made with prior study dated 09/28/2020. FINDINGS: EKG electrodes are seen. Hyperinflation. Stable emphysematous changes with bullous changes in the right upper lobe as well as in the left upper lobe. Scarring at the lung bases. Blunting of both costophrenic angles. Normal size heart. Normal mediastinum and kim. Normal visualized pulmonary arteries. Normal visualized aortic arch and descending thoracic aorta. Normal visualized thoracic spine. Normal visualized ribs, clavicles, and shoulders. There is no demonstrated abnormality of the visualized soft tissue structures of the upper abdomen. RAD/Chest 1 View (Portable) IMPRESSION: Hyperinflation and emphysematous changes with scarring at the lung bases and blunting of both costophrenic angles. Electronically Signed: Sanchez Blood MD at 11:18 EDT , Service support ,
[2020-12-25 10:58] LABS: Absolute Lymphocyte Count 3.22 X10^3/uL (0.83-4.51); Absolute Neutrophil Count 8.9 X10^3/uL (2.0-7.7); Basophil% 0.7 % (0-1); Eosinophil# 0.34 X10^3/uL; Eosinophils% 2.4 % (0-5); Hematocrit 42.8 % (40-54); Hemoglobin 12.4 g/dL (13.0-16.5); Lymphocyte # 3.22 X10^3/ul (4.0); Lymphocyte % 22.9 % (19-41); Mean Corpuscular Hgb 25.7 pg (27.0-32.0); Mean Corpuscular Volume 88.6 fL (80-94); Mean Platelet Vol. 8.7 fl (6.2-12.0); Monocyte# 1.37 X10^3/uL; Monocyte% 9.7 % (0-10); NRBC Flagged by Analyzer 0 % (0-5); Neutrophil # 8.88 X10^3/uL (2.7-7.7); Neutrophil % 63.2 % (47-70); Platelet Count 465 K/mm3 (150-450); RBC Distribution Width CV 15.6 % (11.6-14.6); RBC Distribution Width SD 49.9 fl (35.1-43.9); Red Blood Count 4.83 M/mm3 (4.6-6.2); White Blood Count 14.1 K/mm3 (4.4-11.0)
--- NOTE | 2020-12-25 11:00 | CPS ---
PATIENT AGREEABLE TO COME OFF BIPAP PER DR REQUEST. PATIENT PLACED ON 4LPM HE STATED HE HAS AT HOME.
[2020-12-25 11:05] LABS: Prothrombin Time (Protime)PT. 12.2 SECONDS (11.7-14.9)
[2020-12-25 11:06] LABS: Partial Thromboplast Time 26.1 Seconds (24.1-36.2)
[2020-12-25 11:17] LABS: ALB/GLOB Ratio 0.8 RATIO (0.9-2.4); AST(SGOT) 14 U/L (15-37); Alanine Aminotransfer ALT/SGPT 23 U/L (16-61); Albumin, Serum 3.3 g/dL (3.2-5.0); Alkaline Phosphatase 129 U/L (45-117); Anion Gap 2 (5-15); BUN 18 mg/dL (7-18); BUN/Creat Ratio 13.5 RATIO (10-20); Calcium,Total 9.2 mg/dL (8.5-10.1); Chloride 101 mmol/L (98-107); Creatinine, Serum 1.33 mg/dL (0.70-1.30); EST Glomerular Filtration Rate 58 mL/min (>60); Est Glom Filt Rate - Afr Amer 70 mL/min (>60); Estimated Creatinine Clearance 62.12 ml/min; Glucose 113 mg/dL (74-106); Potassium 3.7 mmol/L (3.5-5.1); Protein, Total 7.3 g/dL (6.4-8.2); Sodium Level 141 mmol/L (136-145)
[2020-12-25 11:23] LABS: Lactic Acid 1.3 mmol/L (0.4-1.9)
[2020-12-25 12:41] LABS: Mucous, Urine 0 SEEN /hpf (<or=2+)
[2020-12-25 12:42] LABS: Color, Urine Yellow (Yellow); Glucose, Dipstick Normal (Normal); Ketone-Dipstick Negative (Negative); Leukocyte Esterase-Dipstick 500 /ul (Negative); Nitrite-Dipstick Negative (Negative); Occult Blood-Urine 50 /ul (Negative); Protein-Dipstick 30 mg/dl (Negative); Urine Bilirubin Dipstick Negative (Negative); Urine Clarity Cloudy (Clear); Urine Urobilinogen Normal (Normal)
[2020-12-25 12:54] LABS: Bacteria 1+ /hpf (None Seen); Red Blood Cells-Urine 0-5 SEEN /hpf (0-5); Squamous Epithelial Cells - UA 0-5 SEEN /hpf (0-5); White Blood Cells 50-100 SEEN /hpf (0-5)
[2020-12-25] MEDS: Ipratropium/Albuterol Sulfate 3 ML AMPUL.NEB INHALATION (14:50)
[2020-12-25] MEDS: Albuterol 2.5 MG/3 ML VIAL.NEB. INHALATION (14:50)
[2020-12-25] MEDS: Cephalexin 500 MG Capsule PO (16:02)
== END 2020-12-25 16:30 | disposition home or self-care (01) ==
PROVIDERS: Emergency Provider Student in an Organized Health Care Education/Training Program; PCP Internal Medicine
DX: J44.1 Chronic obstructive pulmonary disease with (acute) exacerbation (principal); N39.0 Urinary tract infection, site not specified; Z87.891 Personal history of nicotine dependence
CPT/HCPCS: 36415; 36600; 71045; 80053; 81001; 82803; 83605; 85025; 85610; 85730; 87040; 87077; 87086; 87088; 87186; 93005; 94002; 94640; 99251; 99285; G0463

== ENCOUNTER 2021-04-24 05:08 | Inpatient (IN) | payer MEDICARE, MEDICAID, SELFPAY ==
[2020-12-25 10:02] VITALS: BMI 33.8
[2021-04-24] VITALS (22 sets, daily range): BP systolic 105–137; BP diastolic 62–88; PULSE 80–100; RESP 12–33; TEMP 36.3–37.3; O2SAT 91–99; BMI 34.7; BMI 34.0
--- NOTE | 2021-04-24 05:10 | RAD_ITS ---
STUDY: X-RAY CHEST REASON FOR EXAM: Male, 60 years old. Rest jamil distress, inspiratory rales and expirato TECHNIQUE: Single frontal view of the chest. COMPARISON: 12/25/2020 FINDINGS: There is hyperinflation of the lungs consistent with chronic obstructive lung disease (COPD). Tiny pleural effusions bilaterally. Scarring at the RIGHT upper lung zone. Bilateral basilar atelectasis/infiltrate. Chronic lung changes. The heart is within normal limits in size for portable AP technique. There are diffuse degenerative changes of the visualized thoracic spine. There is no demonstrated abnormality of the visualized soft tissue structures of the upper abdomen. RAD/Chest 1 View (Portable) IMPRESSION: Findings suggest COPD. Blunting of the costophrenic angles could represent pleural thickening or pleural effusions. Bilateral basilar atelectasis/infiltrate. Electronically Signed: Jorge Alberto Suarez MD at 5:46 EDT Tel , Service support ,
--- NOTE | 2021-04-24 05:12 | EKG12_ITS ---
Test Reason : DYSRHYTHMIA Blood Pressure : / mmHG Vent. Rate : 095 BPM Atrial Rate : 095 BPM P-R Int : 128 ms QRS Dur : 088 ms QT Int : 338 ms P-R-T Axes : 072 050 033 degrees QTc Int : 424 ms Normal sinus rhythm Normal ECG Confirmed by PENELOPE ROTHMAN, KERVIN ([id number]), sports editor ANITA ALFARO ([id number]) on 04/27/2021 9:54:50 AM Referred By: JULIA Confirmed By:VALERY NEGRETE MD
--- NOTE | 2021-04-24 05:12 | EDS_ITS ---
HPI History of Present Illness Chief Complaint: Shortness of Breath Informant: patient Onset/Context/Timing Onset: Hours Context: sleep Timing: Continuous Quality: Positive for PND Current Severity: Severe Maximum Severity: Severe Associated Symptoms cough Chest Pain: Positive for None Narrative PE Risk Factors: Negative for Cancer, OCP + Smoking + > 35, Prior DVT or PE, Recent immobilization, Recent surgery and Recent travel Prior similar symptoms: Yes (COPD and CHF) Recent Illness/Hospitalization: No PFSH PFS Medical History (Updated 04/24/21 @ 05:[address] Reyes Aguilar MD) Anxiety Anxiety CAD (coronary artery disease) Congestive heart failure Coronary artery disease Essential hypertension Hyperlipidemia MICHELLE (obstructive sleep apnea) Stage 4 very severe COPD by GOLD classification Tobacco abuse Type 2 diabetes mellitus Home Medications aspirin 81 mg PO DAILY@0800 10/04/14 [History Last Taken 07/31/20] atorvastatin 40 mg PO QHS 10/04/14 [History Last Taken 07/30/20] clopidogrel 75 mg PO DAILY 10/04/14 [History Last Taken 07/30/20] furosemide 40 mg PO BID 10/04/14 [History Last Taken 07/30/20] multivitamin with folic acid 1 tab PO DAILY 10/04/14 [History Last Taken 07/30/20] budesonide-formoterol 2 puff INHALATION BID 02/24/15 [History Last Taken 10/13/18 22:00 2 puff] roflumilast 500 mcg PO DAILY 02/24/15 [History Last Taken 10/13/18 08:00 500 mg] famotidine 20 mg PO BID 08/01/15 [History Last Taken 07/31/20] bupropion HCl 100 mg tablet 100 mg PO BID 10/25/17 [History Last Taken 07/30/20] albuterol sulfate 2.5 mg INHALATION Q2H PRN PRN #1 box 11/08/17 [Rx Last Taken 10/13/18 22:00 1 tx] albuterol sulfate 90 mcg/actuation aerosol inhaler 2 puff INHALATION Q2H PRN g 11/11/17 [History Last Taken 10/14/18 06:30 2 puffs] tiotropium bromide 18 mcg capsule with inhalation device 1 cap INHALATION DAILY 11/11/17 [History Last Taken 10/13/18 14:00 1 cap] cholecalciferol (vitamin D3) 1,000 unit PO DAILY tab 02/13/18 [Rx Last Taken 07/31/20] ipratropium bromide 0.02 % solution for inhalation 0.5 mg INHALATION Q4H ml 05/01/18 [History Last Taken 10/13/18 22:00 1 tx] losartan 25 mg tablet 25 mg PO 1400 09/14/18 [History Last Taken 07/30/20] budesonide 0.5 mg INHALATION BID 10/14/18 [History Last Taken 10/13/18 18:00 1 tx] Oxygen, Home [Home Oxygen] 4 - 6 lpm NASAL CONT 07/24/19 [History Last Taken Unknown] clotrimazole 10 mg MUCOUS MEMBRANE TID PRN 07/24/19 [History Last Taken Unknown] ferrous sulfate 325 mg PO DINNER 07/24/19 [History Last Taken 07/30/20] potassium chloride 20 meq PO BID 07/24/19 [History Last Taken 07/31/20] metformin 500 mg tablet 250 mg PO QHS tab 10/01/19 [History Last Taken 07/30/20] metformin 500 mg tablet 500 mg PO BREAKFAST tab 10/01/19 [History Last Taken 07/31/20] prednisone 10 mg tablet 10 mg PO QDAY #100 tab 07/21/20 [Rx Last Taken 07/31/20] prednisone 10 mg tablet 10 mg PO QDAY #30 tab 09/26/20 [Rx Last Taken Unknown] apixaban 2.5 mg PO BID #8 tab 10/07/20 [Rx Last Taken Unknown] metoprolol tartrate 25 mg tablet 25 mg PO BID #180 tab 12/15/20 [Rx Last Taken Unknown] cephalexin 500 mg PO Q12 #14 capsule 12/25/20 [Rx Last Taken Unknown] prednisone 20 mg tablet 60 mg PO DAILY #15 tablet 02/26/21 [Rx Last Taken Unknown] azithromycin 250 mg tablet 250 mg PO QMWF #12 tab 03/23/21 [Rx Last Taken Unknown] Allergy/AdvReac Type Severity Reaction Status Date / Time diazepam [From Valium] AdvReac Vomiting Verified 04/24/21 05:12 Family History Mother Diabetes Father Heart disease CVA (cerebral vascular accident) Brother Diabetes Asthma Surgical History Presence of stent in coronary artery (~07/2006) Social History Smoking Status: Former smoker Tobacco: How many years used: 40 how long ago did patient quit smokin, 2pk/day second hand exposure: Yes alcohol intake: never substance use type: does not use ROS ROS ED Constitutional Constitutional ED: Reports sweats; Denies chills or fever(s) Eyes Eyes: Denies blurry vision or change in vision ENT ENT ED: Denies ear pain or rhinorrhea Cardiovascular Cardiovascular: Reports orthopnea, palpitations and paroxysmal nocturnal dyspnea ; Denies chest pain Respiratory/Chest Respiratory/Chest: Reports dyspnea, orthopnea and paroxysmal nocturnal dyspnea; Denies cough or sputum Gastrointestinal Gastrointestinal: Denies abdominal pain, diarrhea, nausea or vomiting Musculoskeletal Musculoskeletal: Reports other Details: Patient states his right lower extremity is always swollen in comparison to the left ; Denies arthralgias, back pain, myalgias or neck pain Integumentary Denies rash Neurologic Neurologic: Denies paresthesias or weakness Hematologic/Lymphatic Hematologic/Lymphatic: Denies easy bleeding or easy bruising EXAM Physical Exam Const Vital Signs: 04/24/21 05:09 Temperature 97.4 F L Temperature Source Temporal Pulse Rate 100 Respiratory Rate 33 H Blood Pressure 118/88 H Blood Pressure Mean 98 Pulse Ox 97 Oxygen Delivery Method CPAP Positive well nourished, well developed and obese General Appearance ED: well developed Nutritional Appearance: obese HEENT HEENT Narrative: Patient's H EENT exam is limited since he is on CPAP. Nares patent. Ears symmetric. Face is symmetric. atraumatic Eyes PERRL and EOMs intact bilaterally General Eye ED: Negative for pale conjunctiva Neck no lymphadenopathy, supple and no JVD Neck Narrative: Trachea is midline. There is no inspiratory or expiratory stridor. Resp Auscultation: rales right, rhonchi throughout and diminished lung sounds Cardio regular rate, regular rhythm, S1 normal heart sound and S2 normal heart sound GI non-tender, non-distended and no masses Auscultation: normoactive bowel sounds Palpation: soft Back/Spine no CVA tenderness and normal to inspection Extremity Extremity Narrative: Right leg and foot are swollen compared to the left. This is normal for patient. There is no leg vein distention, palpable cords, pain on distribution deep venous system or discoloration. General Extremety ED: Negative for edema or tenderness General Extremity: Negative for edema Neuro oriented x3 and CN's II-XII intact bilaterally [place] Coma Scale: document GCS findings Spontaneous Obeys Commands Oriented 15 Sensorium / Orientation: alert Motor Exam: strength 5/5 throughout Psych mental status grossly normal Skin no wounds Lesions: no lesions Rashes: no rashes MDM MDM MDM Narrative Medical decision making narrative: With abrupt onset of shortness of breath/PND need to rule out pulmonary edema, pneumothorax and PE. This may represent exacerbate COPD with pneumonia. This is less likely. EKG, chest x-ray and appropriate labs were ordered. Treatment was not initiated because uncertain whether this is heart failure versus COPD. Since the chest x-ray is unchanged from December 25, 2020 other than a small pleural effusion will treat with albuterol. He did receive a DuoNeb and Solu- Medrol prior to arrival. Troponin is normal. BNP is normal. White count is elevated which may be due to stress. Creatinine is elevated 1.38. Lab Data Attestation: I reviewed the patient's lab results. Lab results narrative: Arterial blood gas reveals acute on chronic respiratory failure with hypercapnia and hypoxia. Labs: Laboratory Results - last 24 hr 04/24/21 04/24/21 04/24/21 05:20 05:20 05:20 WBC 16.9 H RBC 4.63 Hgb 12.1 L Hct 41.7 MCV 90.1 MCH 26.1 L MCHC 29.0 L RDW Std Deviation 45.8 H RDW Coeff of Asael 13.9 Plt Count 349 MPV 9.2 Immature Gran % (Auto) 1.300 H Neut % (Auto) 66.9 Lymph % (Auto) 20.1 [place] % (Auto) 9.3 Eos % (Auto) 1.9 Baso % (Auto) 0.5 Absolute Neuts (auto) 11.3 H Absolute Lymphs (auto) 3.40 Nucleated RBC % 0 Diff Path Review May foll Sodium 140 Potassium 4.1 Chloride 98 Carbon Dioxide 39.0 H Anion Gap 3 L BUN 19 H Creatinine 1.38 H Estim Creat Clear Calc 59.87 Est GFR (MDRD) Af Amer 67 Est GFR (MDRD) Non-Af 56 L BUN/Creatinine Ratio 13.8 Glucose 150 H Calcium 8.7 Troponin I High Sens 7.1 B-Natriuretic Peptide 24.4 ABG Data ABG results: ABG 04/24/21 05:45 Specimen Type YULISSA VBG pH 7.28 L VBG pO2 64 H VBG HCO3 37 H VBG Total CO2 40 H VBG O2 Sat (Calc) 88 H VBG Base Excess 11 H POC Mix VBG pCO2 Pt Tmp 79.8 H* O2 Delivery Device HFNC Liter Flow 12.0 Crit Call To/Read Back Yes Blood Gas Notified Whom Aguilar Blood Gas Notified Time 05:47:24 Radiography Chest X-Ray - ED: 1 View, Read by ED Physician, Unchanged, Heart, Lungs, Mediastinum, Bony Structures, No Acute Disease and - (There may be a small left pleural effusion compared to film on December 25, 2020. And there is a difference in penetration which makes the vessel slightly more prominent.) Diagnostic Testing: Radiology Impression Chest X-Ray 04/24/21 05:10 IMPRESSION: Findings suggest COPD. Blunting of the costophrenic angles could represent pleural thickening or pleural effusions. Bilateral basilar atelectasis/infiltrate. Electronically Signed: Jorge Alberto Suarez MD at 5:46 EDT Tel , Service support , Critical Care Time Critical care time (excluding procedures): 30-74 minutes (Total time 36 minutes), Including time spent: (Obtaining history, performing physical exam, documentation, review of prior records, interpretation of imaging and laboratory results to initiate therapy), Discussing w/Patient &/or Family/Utility Pipe Layer, Discussing w/Consultants and Arranging Admission or Transfer Discharge Plan Dx/Rx/DC Orders Clinical Impression: Acute on chronic respiratory failure with hypoxia and hypercapnia, Acute exacerbation of chronic obstructive pulmonary disease Disposition Disposition: Acute Care [facility]
[2021-04-24 05:34] LABS: Absolute Neutrophil Count 11.3 X10^3/uL (2.0-7.7); Basophil# 0.08 X10^3/uL; Basophil% 0.5 % (0-1); Eosinophil# 0.32 X10^3/uL; Eosinophils% 1.9 % (0-5); Hematocrit 41.7 % (40-54); Hemoglobin 12.1 g/dL (13.0-16.5); Lymphocyte % 20.1 % (19-41); Mean Corpuscular Hgb 26.1 pg (27.0-32.0); Mean Corpuscular Volume 90.1 fL (80-94); Mean Platelet Vol. 9.2 fl (6.2-12.0); Monocyte# 1.58 X10^3/uL; Monocyte% 9.3 % (0-10); NRBC Flagged by Analyzer 0 % (0-5); Neutrophil # 11.33 X10^3/uL (2.7-7.7); Neutrophil % 66.9 % (47-70); POSITIVE DIFFERENTIAL YES; Platelet Count 349 K/mm3 (150-450); RBC Distribution Width CV 13.9 % (11.6-14.6); RBC Distribution Width SD 45.8 fl (35.1-43.9); Red Blood Count 4.63 M/mm3 (4.6-6.2); White Blood Count 16.9 K/mm3 (4.4-11.0)
[2021-04-24 05:35] LABS: Differential Indicated SCAN CRITERIA MET
[2021-04-24 05:50] LABS: Blood Gas Specimen Type VEN; O2 Delivery Device HFNC; VBG BASE EXCESS 11 mmol/L (-1.0-3.5); VBG Bicarbonate 37 mmol/L (22-26); VBG PO2 64 mmHg (25-40); VBG SO2 88 % (50-70); VBG TCO2 40 mmol/L (23-33); VBG pCO2 79.8 mmHg (41-51); VBG pH 7.28 (7.32-7.42)
[2021-04-24] MEDS: Albuterol 2.5 MG/3 ML VIAL.NEB. INHALATION ×3 (05:53)
[2021-04-24 05:54] LABS: BNP,B-Type NATRIURETIC PEPTIDE 24.4 pg/mL (0-100)
[2021-04-24 05:59] LABS: Anion Gap 3 (5-15); BUN 19 mg/dL (7-18); BUN/Creat Ratio 13.8 RATIO (10-20); Calcium,Total 8.7 mg/dL (8.5-10.1); Chloride 98 mmol/L (98-107); Creatinine, Serum 1.38 mg/dL (0.70-1.30); EST Glomerular Filtration Rate 56 mL/min (>60); Est Glom Filt Rate - Afr Amer 67 mL/min (>60); Estimated Creatinine Clearance 59.87 ml/min; Glucose 150 mg/dL (74-106); Potassium 4.1 mmol/L (3.5-5.1); Sodium Level 140 mmol/L (136-145); Troponin-I HS 7.1 pg/mL (3.0-78.5)
--- NOTE | 2021-04-24 06:19 | HP.PCM.HOS_ITS ---
HPI - General General Date of Admission: 04/24/21 HPI Narrative TIARA JACOB, is a 60 M with a PMH as outlined who presents through the ED on 04/24/2021 with a complaint of shortness of breath. He was awakened from sleep with a complaint of shortness of breath. He denied any wheezing, cough, chest pain, palpitations, nausea or vomiting. REview of systems is otherwise negative. Labs showed wbc of 16/9, Hb of 12.1, platelets of 349. VBG showed pH of 7.28 with pCO2 of 79.8 and pO2 of 64. Chemistry was essentially remarkable for Cr of 1.38 and bicarb of 39. CXR showed findings suggestive of COPD and blunting of costophrenic angles representing pleural thickennig or effusions and bibasilar atelectasis/infiltrate. He is being admitted to be managed for acute on chronic hypoxic and hypercapnic respiratory failure due to COPD exacerbation. [facility]LY [facility] Medical History Anxiety Anxiety CAD (coronary artery disease) Congestive heart failure Coronary artery disease Essential hypertension Hyperlipidemia MICHELLE (obstructive sleep apnea) Stage 4 very severe COPD by GOLD classification Tobacco abuse Type 2 diabetes mellitus Home Medications aspirin 81 mg PO DAILY@0800 10/04/14 [History Last Taken 07/31/20] atorvastatin 40 mg PO QHS 10/04/14 [History Last Taken 07/30/20] clopidogrel 75 mg PO DAILY 10/04/14 [History Last Taken 07/30/20] furosemide 40 mg PO BID 10/04/14 [History Last Taken 07/30/20] multivitamin with folic acid 1 tab PO DAILY 10/04/14 [History Last Taken 07/30/20] budesonide-formoterol 2 puff INHALATION BID 02/24/15 [History Last Taken 10/13/18 22:00 2 puff] roflumilast 500 mcg PO DAILY 02/24/15 [History Last Taken 10/13/18 08:00 500 mg] famotidine 20 mg PO BID 08/01/15 [History Last Taken 07/31/20] bupropion HCl 100 mg tablet 100 mg PO BID 10/25/17 [History Last Taken 07/30/20] albuterol sulfate 2.5 mg INHALATION Q2H PRN PRN #1 box 11/08/17 [Rx Last Taken 10/13/18 22:00 1 tx] albuterol sulfate 90 mcg/actuation aerosol inhaler 2 puff INHALATION Q2H PRN g 11/11/17 [History Last Taken 10/14/18 06:30 2 puffs] tiotropium bromide 18 mcg capsule with inhalation device 1 cap INHALATION DAILY 11/11/17 [History Last Taken 10/13/18 14:00 1 cap] cholecalciferol (vitamin D3) 1,000 unit PO DAILY tab 02/13/18 [Rx Last Taken 07/31/20] ipratropium bromide 0.02 % solution for inhalation 0.5 mg INHALATION Q4H ml 05/01/18 [History Last Taken 10/13/18 22:00 1 tx] losartan 25 mg tablet 25 mg PO 1400 09/14/18 [History Last Taken 07/30/20] budesonide 0.5 mg INHALATION BID 10/14/18 [History Last Taken 10/13/18 18:00 1 tx] Oxygen, Home [Home Oxygen] 4 - 6 lpm NASAL CONT 07/24/19 [History Last Taken Unknown] ferrous sulfate 325 mg PO DINNER 07/24/19 [History Last Taken 07/30/20] potassium chloride 20 meq PO BID 07/24/19 [History Last Taken 07/31/20] metformin 500 mg tablet 250 mg PO QHS tab 10/01/19 [History Last Taken 07/30/20] metformin 500 mg tablet 500 mg PO BREAKFAST tab 10/01/19 [History Last Taken 07/31/20] prednisone 10 mg tablet 10 mg PO QDAY #100 tab 07/21/20 [Rx Last Taken 07/31/20] metoprolol tartrate 25 mg tablet 25 mg PO BID #180 tab 12/15/20 [Rx Last Taken Unknown] azithromycin 250 mg tablet 250 mg PO QMWF #12 tab 03/23/21 [Rx Last Taken Unknown] Allergy/AdvReac Type Severity Reaction Status Date / Time diazepam [From Valium] AdvReac Vomiting Verified 04/24/21 05:12 Family History Mother Diabetes Father Heart disease CVA (cerebral vascular accident) Brother Diabetes Asthma Surgical History Presence of stent in coronary artery (~07/2006) Social History Smoking Status: Former smoker Tobacco: How many years used: 40 how long ago did patient quit smokin, 2pk/day second hand exposure: Yes alcohol intake: never substance use type: does not use ROS Constitutional Constitutional: Denies anorexia, chills, fatigue, fever(s) or malaise Eyes Eyes: Denies double vision ENT HEENT: Denies headache(s), nasal congestion, nasal discharge or sinus pressure Cardiovascular Cardiovascular: Reports dyspnea on exertion; Denies chest pain, orthopnea, palpitations, paroxysmal nocturnal dyspnea, rapid heart rate or syncope Respiratory/Chest Respiratory/Chest: Reports dyspnea, productive cough, shortness of breath at rest, shortness of breath with exertion and wheezing; Denies cough or hemoptysis Gastrointestinal Gastrointestinal: Denies abdominal pain, diarrhea, nausea or vomiting Genitourinary Genitourinary: Denies burning urination Musculoskeletal Musculoskeletal: Denies arthralgias or joint stiffness Neurologic Neurologic: Denies confusion, focal weakness, numbness, seizures or syncope Psychiatric Psychiatric: Denies anxiety or depression Endocrine Endocrinology: Denies change in body appearance Hematologic/Lymphatic Hematologic/Lymphatic: Denies anemia Vital Signs Vital Signs Vital Signs: 04/24/21 05:09 Temperature 97.4 F L Temperature Source Temporal Pulse Rate 100 Respiratory Rate 33 H Blood Pressure 118/88 H Blood Pressure Mean 98 Pulse Ox 97 Oxygen Delivery Method CPAP Weight Weight: 249 lb 5.485 oz Body Mass Index (BMI) 34.7 Physical Exam Const alert, oriented x3 and no apparent distress General Appearance: cooperative HEENT normocephalic, head/scalp atraumatic, hearing grossly normal bilaterally and moist oral mucous membranes Eyes PERRL, EOMs intact bilaterally and conjunctivae normal Neck no lymphadenopathy Resp Resp Narrative: diminished breath sounds bibasally, no wheezes or crackles. On BIPAP Cardio regular rate, regular rhythm, S1 normal heart sound, S2 normal heart sound and no murmurs GI normal to inspection, nondistended, normoactive bowel sounds, soft to palpation, non-tender and non-distended Extremity normal to inspection, full ROM and no clubbing, cyanosis or edema Peripheral Pulses: Yes pulses 2+ throughout Skin no rashes or lesions noted Neuro oriented x3 Sensorium / Orientation: awake and alert Psych affect normal Results Lab / Micro Data Result Diagrams: 04/24/21 05:20 04/24/21 05:20 Labs: Laboratory Results - last 24 hr 04/24/21 05:20: WBC 16.9 H, RBC 4.63, Hgb 12.1 L, Hct 41.7, MCV 90.1, MCH 26.1 L , MCHC 29.0 L, RDW Std Deviation 45.8 H, RDW Coeff of Asael 13.9, Plt Count 349, MPV 9.2, Immature Gran % (Auto) 1.300 H, Neut % (Auto) 66.9, Lymph % (Auto) 20.1, [place] % (Auto) 9.3, Eos % (Auto) 1.9, Baso % (Auto) 0.5, Absolute Neuts (auto) 11.3 H, Absolute Lymphs (auto) 3.40, Nucleated RBC % 0, Diff Path Review February04/24/21 05:20: Sodium 140, Potassium 4.1, Chloride 98, Carbon Dioxide 39.0 H, Anion Gap 3 L, BUN 19 H, Creatinine 1.38 H, Estim Creat Clear Calc 59.87, Est GFR (MDRD) Af Amer 67, Est GFR (MDRD) Non-Af 56 L, BUN/Creatinine Ratio 13.8, Glucose 150 H, Calcium 8.7, Troponin I High Sens 7.1 04/24/21 05:20: B-Natriuretic Peptide 24.4 ABG Data ABG results: ABG 04/24/21 05:45 Specimen Type YULISSA VBG pH 7.28 L VBG pO2 64 H VBG HCO3 37 H VBG Total CO2 40 H VBG O2 Sat (Calc) 88 H VBG Base Excess 11 H POC Mix VBG pCO2 Pt Tmp 79.8 H* O2 Delivery Device HFNC Liter Flow 12.0 Crit Call To/Read Back Yes Blood Gas Notified Whom Aguilar Blood Gas Notified Time 05:47:24 Radiology Impression Chest X-Ray 04/24/21 05:10 IMPRESSION: Findings suggest COPD. Blunting of the costophrenic angles could represent pleural thickening or pleural effusions. Bilateral basilar atelectasis/infiltrate. Electronically Signed: Jorge Alberto Suarez MD at 5:46 EDT Tel , Service support , Assessment & Plan Assessment/Plan (1) Acute on chronic respiratory failure with hypoxia and hypercapnia: (2) Acute exacerbation of chronic obstructive pulmonary disease: PLAN: #Acute on chronic hypoxic and hypercapnic respiratory failure due to COPD exacerbation * admit to PCU stepdown as patient is usually on trilogy at home, but is now requiring BIPAP * consult pulmonology * titrate oxygen and BIPAP settings to maintain sats>90% * IV solumedrol 40mg q8 * breathing treatment with bronchodilators * hasnt received covid vaccine because he contracted covid in September 2020; will get covid test * BNP is WNL at 24/ * on roflumilast and tiotropium * #Hypertension: on losartan and metoprolol #Type 2 diabetes mellitus: on metformin. ISS. Accajit ACHS #Hyperlipidemia: on statin #CAD: * on aspirin and plavix as well as statin. * He has eliquis on his med rec; patient says he doesnt think he takes it anymore, but cannot tell me what he was taking it for. Patient did have covid in September 2020, so I suspect that he may have had to take a short course of eliquis then. #Type 2 diabetes mellitus: on metformin. ISS. Accajit ACHS #HFpEF: not in exacerbation. On lasix 20mg daily. DVT prophylaxis: lovenox COde status: full code. * Patient counseled about differences between full code, DNRCCA and DNRCC. Patient elects to be full code. Total face to face time 16 mins Charges/Coding Visit Charges Inpatient E&M: 81348 Init Hosp L3 Procedures Hospitalists Procedures: [id number] Advncd Care Plan 30 Min
--- NOTE | 2021-04-24 06:31 | CPS ---
x3 Albuterol given to pt. in ER in total
--- NOTE | 2021-04-24 07:18 | CON.PCM.CC_ITS ---
Assessment & Plan Assessment/Plan (1) Acute on chronic respiratory failure with hypoxia and hypercapnia: PLAN: RECOMMENDATIONS: 1. Continue empiric antimicrobials. 2. Continue scheduled bronchodilators and IV steroids. 3. Continue diuretic therapy as tolerated by hemodynamics and renal function. 4. Recommend use of AVAPS with naps and nightly. 5. Encourage incentive spirometer use and mobilize patient as tolerated. 6. The patient should follow-up in the pulmonary medicine clinic within 2 weeks of discharge. IMPRESSIONS: 1. Acute on chronic combined respiratory failure The patient has known end-stage COPD and chronic respiratory failure with a 4 L/min baseline requirement. He has been lost to follow-up recently in [facility], but was previously being followed by Dr. Mendez. In addition to the aforementioned, the patient is prescribed a noninvasive ventilator at his baseline. He does report compliance with his noninvasive ventilator, supplemental oxygen and maintenance inhalers. It is unclear what precipitated the patient's acute decompensation this morning. However, in light of antimicrobial therapy, bronchodilators, steroids and diuretics, the patient has already returned back to his baseline oxygen requirement. Recommend continuing the aforementioned intervention. Wean supplemental oxygen as tolerated. Encourage incentive spirometer use and mobilize patient as tolerated. Ideally, the patient should be set up with a follow-up office visit in the pulmonary medicine clinic within 2 weeks of discharge. 2. History of coronary artery disease status post PTCA/anxiety/ hyperlipidemia/hypertension Complicates care, management, recovery and prognosis. Continue home medications as indicated. This note was generated with [employer] dictation software. It may contain incorrect words, spelling, and punctuation that were not noted in checking the note before signing. HPI Consult Data Date of Consult: 04/24/21 HPI Narrative Reason for Consultation: Acute on chronic respiratory failure HPI Narrative: The patient is a 60-year-old male, with a history as outlined below, who presented to the emergency department on April 24 with complaints of shortness of breath. The patient was last admitted to the hospital in September 2020 with acute on chronic combined respiratory failure due to COVID-19 pneumonia and rhinovirus upper respiratory infection. The patient was supposed to follow-up in the pulmonary medicine clinic after discharge but failed to do so. The patient is currently homeless and resides in a tent, but states that he has run an extension cord from a nearby outlet to power his noninvasive ventilator and nebulizer machine. The patient does report compliance with the use of his noninvasive ventilator. The patient does have a history of end-stage COPD and chronic hypoxemic respiratory failure with a baseline 4 L/min oxygen requirement, for which he follows with Dr. Mendez in the pulmonary medicine clinic. The patient is on a triple therapy inhaler regimen at his baseline and is also prescribed a noninvasive ventilator as well. On presentation to the emergency department, the patient was noted to be afebrile and hemodynamically stable. Initial laboratory evaluation revealed an elevated white blood cell count to 17,000. Chemistry profile was notable for a chronically elevated bicarbonate to 39. Creatinine was noted to be 1.38. Chest x-ray revealed blunting of the costophrenic angles with associated atelectasis. The patient was subsequently placed on antimicrobials, bronchodilators, IV steroids and Lasix. He was admitted to the progressive care unit for further management. [facility] Medical History Anxiety Anxiety CAD (coronary artery disease) Congestive heart failure Coronary artery disease Essential hypertension Hyperlipidemia MICHELLE (obstructive sleep apnea) Stage 4 very severe COPD by GOLD classification Tobacco abuse Type 2 diabetes mellitus Home Medications aspirin 81 mg PO DAILY@0800 10/04/14 [History Last Taken 07/31/20] atorvastatin 40 mg PO QHS 10/04/14 [History Last Taken 07/30/20] clopidogrel 75 mg PO DAILY 10/04/14 [History Last Taken 07/30/20] furosemide 40 mg PO BID 10/04/14 [History Last Taken 07/30/20] multivitamin with folic acid 1 tab PO DAILY 10/04/14 [History Last Taken 07/30/20] budesonide-formoterol 2 puff INHALATION BID 02/24/15 [History Last Taken 10/13/18 22:00 2 puff] roflumilast 500 mcg PO DAILY 02/24/15 [History Last Taken 10/13/18 08:00 500 mg] famotidine 20 mg PO BID 08/01/15 [History Last Taken 07/31/20] bupropion HCl 100 mg tablet 100 mg PO BID 10/25/17 [History Last Taken 07/30/20] albuterol sulfate 2.5 mg INHALATION Q2H PRN PRN #1 box 11/08/17 [Rx Last Taken 10/13/18 22:00 1 tx] albuterol sulfate 90 mcg/actuation aerosol inhaler 2 puff INHALATION Q2H PRN g 11/11/17 [History Last Taken 10/14/18 06:30 2 puffs] tiotropium bromide 18 mcg capsule with inhalation device 1 cap INHALATION DAILY 11/11/17 [History Last Taken 10/13/18 14:00 1 cap] cholecalciferol (vitamin D3) 1,000 unit PO DAILY tab 02/13/18 [Rx Last Taken 07/31/20] ipratropium bromide 0.02 % solution for inhalation 0.5 mg INHALATION Q4H ml 05/01/18 [History Last Taken 10/13/18 22:00 1 tx] losartan 25 mg tablet 25 mg PO 1400 09/14/18 [History Last Taken 07/30/20] budesonide 0.5 mg INHALATION BID 10/14/18 [History Last Taken 10/13/18 18:00 1 tx] Oxygen, Home [Home Oxygen] 4 - 6 lpm NASAL CONT 07/24/19 [History Last Taken Unknown] ferrous sulfate 325 mg PO DINNER 07/24/19 [History Last Taken 07/30/20] potassium chloride 20 meq PO BID 07/24/19 [History Last Taken 07/31/20] metformin 500 mg tablet 250 mg PO QHS tab 10/01/19 [History Last Taken 07/30/20] metformin 500 mg tablet 500 mg PO BREAKFAST tab 10/01/19 [History Last Taken 07/31/20] prednisone 10 mg tablet 10 mg PO QDAY #100 tab 07/21/20 [Rx Last Taken 07/31/20] metoprolol tartrate 25 mg tablet 25 mg PO BID #180 tab 12/15/20 [Rx Last Taken Unknown] azithromycin 250 mg tablet 250 mg PO QMWF #12 tab 03/23/21 [Rx Last Taken Unknown] Allergy/AdvReac Type Severity Reaction Status Date / Time diazepam [From Valium] AdvReac Vomiting Verified 04/24/21 05:12 Family History Mother Diabetes Father Heart disease CVA (cerebral vascular accident) Brother Diabetes Asthma Surgical History Presence of stent in coronary artery (~07/2006) Social History Smoking Status: Former smoker Tobacco: How many years used: 40 how long ago did patient quit smokin, 2pk/day second hand exposure: Yes alcohol intake: never substance use type: does not use ROS Constitutional Constitutional: Denies chills, fatigue or fever(s) Eyes Eyes: Denies blurry vision or change in vision ENT HEENT: Denies dizziness, epistaxis, headache(s) or sore throat Cardiovascular Cardiovascular: Reports dyspnea; Denies chest pain or lightheadedness Respiratory/Chest Respiratory/Chest: Reports dyspnea; Denies hemoptysis Gastrointestinal Gastrointestinal: Denies abdominal pain, diarrhea, nausea or vomiting Genitourinary Genitourinary: Denies difficulty urinating Musculoskeletal Musculoskeletal: Denies arthralgias or back pain Integumentary Integumentary: Denies lesions, rash or skin ulcer Neurologic Neurologic: Denies abnormal gait or abnormal speech Psychiatric Psychiatric: Denies anxiety or depression Endocrine Endocrinology: Denies fatigue or polydipsia Hematologic/Lymphatic Hematologic/Lymphatic: Denies easy bleeding or easy bruising Physical Exam Const alert, oriented x3 and no apparent distress Constitutional Narrative: Maintaining appropriate oxygen saturations on 4 L/min present. General Appearance: cooperative Nutritional Appearance: obese HEENT normocephalic, head/scalp atraumatic and moist oral mucous membranes Eyes PERRL, EOMs intact bilaterally and conjunctivae normal Neck supple General: trachea midline Resp Resp Narrative: Globally diminished air movement throughout all lung santiago without appreciable wheezes, rales or rhonchi. No conversational dyspnea or accessory muscle use. Cardio regular rate and regular rhythm GI normal to inspection, nondistended, normoactive bowel sounds Extremity no clubbing, cyanosis or edema Skin no rashes or lesions noted Neuro no focal motor deficits Psych cooperative and affect normal Lab / Micro Data Result Diagrams: 04/24/21 05:20 04/24/21 05:20 Labs: Laboratory Results - last 24 hr 04/24/21 05:20: WBC 16.9 H, RBC 4.63, Hgb 12.1 L, Hct 41.7, MCV 90.1, MCH 26.1 L , MCHC 29.0 L, RDW Std Deviation 45.8 H, RDW Coeff of Asael 13.9, Plt Count 349, MPV 9.2, Immature Gran % (Auto) 1.300 H, Neut % (Auto) 66.9, Lymph % (Auto) 20.1, Giles % (Auto) 9.3, Eos % (Auto) 1.9, Baso % (Auto) 0.5, Absolute Neuts (auto) 11.3 H, Absolute Lymphs (auto) 3.40, Nucleated RBC % 0, Diff Path Review February04/24/21 05:20: Sodium 140, Potassium 4.1, Chloride 98, Carbon Dioxide 39.0 H, Anion Gap 3 L, BUN 19 H, Creatinine 1.38 H, Estim Creat Clear Calc 59.87, Est GFR (MDRD) Af Amer 67, Est GFR (MDRD) Non-Af 56 L, BUN/Creatinine Ratio 13.8, G lucose 150 H, Calcium 8.7, Troponin I High Sens 7.1 04/24/21 05:20: B-Natriuretic Peptide 24.4 Micro: Microbiology 04/24/21 06:45 Mucosa - Nose SARS-CoV-2 Antigen (Rapid) - Final ABG Data ABG results: ABG 04/24/21 05:45 Specimen Type YULISSA VBG pH 7.28 L VBG pO2 64 H VBG HCO3 37 H VBG Total CO2 40 H VBG O2 Sat (Calc) 88 H VBG Base Excess 11 H POC Mix VBG pCO2 Pt Tmp 79.8 H* O2 Delivery Device HFNC Liter Flow 12.0 Crit Call To/Read Back Yes Blood Gas Notified Whom Aguilar Blood Gas Notified Time 05:47:24 Radiology Impression Chest X-Ray 04/24/21 05:10 IMPRESSION: Findings suggest COPD. Blunting of the costophrenic angles could represent pleural thickening or pleural effusions. Bilateral basilar atelectasis/infiltrate. Electronically Signed: Jorge Alberto Suarez MD at 5:46 EDT Tel , Service support , Charges/Coding Visit Charges Inpatient E&M: 25205 Init Hosp L3
--- NOTE | 2021-04-24 07:26 | PCM.PN.HOSP ---
Subjective Subjective Patient notes feeling significantly improved since initial ED presentation and currently transitioned off of BiPAP to nasal cannula. Patient is currently homeless and living intense but does have the ability to link his home trilogy to an outlet of her friend's house but certainly has ongoing trigger exposure. Patient notes ongoing cough, not markedly productive. He denies any fevers or chills with this. Patient denies nausea, emesis, abdominal pain, chest pain. Objective Data Objective Data Vital Signs: Vital Signs Temp Pulse Resp BP Pulse Ox 98 F 89 20 H 110/69 96 04/24/21 06:54 04/24/21 06:54 04/24/21 06:55 04/24/21 06:54 04/24/21 06:54 Oxygen Delivery Method Bi-pap Weight: 249 lb 5.485 oz Body Mass Index (BMI) 34.7 Lab / Micro Data Result Diagrams: 04/24/21 05:20 04/24/21 05:20 Labs: Laboratory Results - last 24 hr 04/24/21 05:20: WBC 16.9 H, RBC 4.63, Hgb 12.1 L, Hct 41.7, MCV 90.1, MCH 26.1 L, MCHC 29.0 L, RDW Std Deviation 45.8 H, RDW Coeff of Asael 13.9, Plt Count 349, MPV 9.2, Immature Gran % (Auto) 1.300 H, Neut % (Auto) 66.9, Lymph % (Auto) 20.1, Sherman % (Auto) 9.3, Eos % (Auto) 1.9, Baso % (Auto) 0.5, Absolute Neuts (auto) 11.3 H, Absolute Lymphs (auto) 3.40, Nucleated RBC % 0, Diff Path Review February04/24/21 05:20: Sodium 140, Potassium 4.1, Chloride 98, Carbon Dioxide 39.0 H, Anion Gap 3 L, BUN 19 H, Creatinine 1.38 H, Estim Creat Clear Calc 59.87, Est GFR (MDRD) Af Amer 67, Est GFR (MDRD) Non-Af 56 L, BUN/Creatinine Ratio 13.8, Glucose 150 H, Calcium 8.7, Troponin I High Sens 7.1 04/24/21 05:20: B-Natriuretic Peptide 24.4 Micro: Microbiology 04/24/21 06:45 Mucosa - Nose SARS-CoV-2 Antigen (Rapid) - Final ABG Data ABG results: ABG 04/24/21 05:45 Specimen Type YULISSA VBG pH 7.28 L VBG pO2 64 H VBG HCO3 37 H VBG Total CO2 40 H VBG O2 Sat (Calc) 88 H VBG Base Excess 11 H POC Mix VBG pCO2 Pt Tmp 79.8 H* O2 Delivery Device HFNC Liter Flow 12.0 Crit Call To/Read Back Yes Blood Gas Notified Whom Aguilar Blood Gas Notified Time 05:47:24 Radiography Diagnostic Testing: Radiology Impression Chest X-Ray 04/24/21 05:10 IMPRESSION: Findings suggest COPD. Blunting of the costophrenic angles could represent pleural thickening or pleural effusions. Bilateral basilar atelectasis/infiltrate. Electronically Signed: Jorge Alberto Suarez MD at 5:46 EDT Tel , Service support , Physical Exam Narrative Physical Examination: General: awake, alert, oriented x 3 and cooperative, seated upright in the PCU bed, notes feeling improved, currently off BiPAP. Skin: normal color, turgor, no icterus, cyanosis. HEENT: AT/NC, EOMI, PERRLA, mildly dry MM. Lungs: Diminished breath sounds throughout, very tight, greater bases, moderate effort, no rales, ronchi or wheezing. Heart: Regular rate and rhythm; no gallop, rub audible. Abdomen: soft, obese, NTTP, ND, normal BS. Extremities: no cyanosis or clubbing, mild bilateral ankle edema, not markedly pitting. Neurological: patient awake, alert, oriented as noted; cognitive function peers baseline intact; pupils equally reactive to light and accomodation; cranial nerves II-XII grossly normal, moving all 4 extremities, no focal deficits, strength moderately to severely global decrease secondary to acute presentation and underlying comorbidities. Psychiatric: affect appears fatigued otherwise normal, no acute evidence of depressive or anxiety feelings. Assessment & Plan Assessment/Plan (1) Acute on chronic respiratory failure with hypoxia and hypercapnia: (2) Acute exacerbation of chronic obstructive pulmonary disease: PLAN: The patient is a 60 y/o M w/ PMHx: Chronic Diastolic CHF, Chronic Severe COPD with Chronic Hypoxic Respiratory Failure, Obesity, CAD s/p PCI, Anxiety, HTN, HLD, MICHELLE, Anxiety who presents to the [facility] ED on 04/24/21 with significant dyspnea, awaken from sleep secondary to the severity prompting ED evaluation. 1. Acute on Chronic Hypoxic and Hypercarbic Respiratory Failure secondary to Acute on COPD exacerbation: Patient mated to the PCU, initially placed on BiPAP, eventually transitioned nasal cannula, will continue wean to home supplementation, continue ATC duonebs, PRN albuterol, IV methylprednisolone, HOB, IS parameters, serial cardiac enzymes unremarkable, BNP 24.4 of note. Procalcitonin obtained and noted to be 0.08, respiratory viral panel negative, rapid Covid antigen negative, antigens negative. Given normal procalcitonin and negative panels/antigens we will continue azithromycin home regimen only. We will continue AVAPS with naps and nightly. If clinically improved, plan potential discharge 04/25/2021 with follow-up with pulmonary medicine in 2 weeks as well as continued bronchodilators and prednisone taper if appropriate. 2. Chronic Kidney Disease Stage III, unclear subtype: Admission BUN/Cr 19/1.38, baseline renal function 1.1-1.3, stable, repeat BMP in AM. 3. Chronic normocytic anemia, iron deficiency: Admission hemoglobin 12.1, 10/05/20 hemoglobin 10.5, baseline appears primarily more recently -, stable, continue iron supplementation. 4. CAD: Status post PCI, initially mildly hypotensive upon presentation, continued on aspirin, Plavix, metoprolol, losartan regimen. 5. Chronic diastolic CHF: We will continue patient aspirin, Plavix, metoprolol, losartan, Lasix therapy. 6. Diabetes mellitus type II: Hold oral home regimen, monitor blood sugars given IV solumedrol usage, ADA diet, accu checks w/ ISS. 7. Anxiety and depression: We will continue patient home Wellbutrin regimen. 8. Hypertension: Continue home regimen including metoprolol, losartan, Lasix with hold parameters as needed, PRN hydralazine. 9. Hyperlipidemia: Continue home statin regimen. 10. Obesity: Weight loss and lifestyle changes encouraged. 11. GERD: Continue patient home famotidine regimen. 12. MICHELLE: Continue AVAPS with naps and nightly. 13. DVT prophylaxis: SCDs, Lovenox. 14. CODE STATUS: Full code. Charges/Coding Procedures Hospitalists Procedures: Other Procedure - See Report (Not billed secondary to admitted after midnight: [id number])
--- NOTE | 2021-04-24 07:49 | EKG12_ITS ---
Test Reason : AM EKG Blood Pressure : / mmHG Vent. Rate : 084 BPM Atrial Rate : 084 BPM P-R Int : 128 ms QRS Dur : 086 ms QT Int : 342 ms P-R-T Axes : 078 048 044 degrees QTc Int : 404 ms Normal sinus rhythm Low voltage QRS Borderline ECG When compared with ECG of 24-APR-2021 08:32, MANUAL COMPARISON REQUIRED, DATA IS UNCONFIRMED Confirmed by ROMAN ROTHMAN, NAIF ([id number]), senior editor ANITA ALFARO ([id number]) on 04/27/2021 11:54:38 AM Referred By: ILANA Confirmed By:NAIF OWENS MD
[2021-04-24 07:51] LABS: Magnesium 2.3 mg/dL (1.6-2.6)
[2021-04-24 08:12] LABS: Procalcitonin 0.08 ng/mL (0.00-0.09)
[2021-04-24 08:38] LABS: Troponin-I HS 10.1 pg/mL (3.0-78.5)
[2021-04-24] MEDS: Furosemide 40 MG Tablet PO ×2 (09:00→17:00)
[2021-04-24] MEDS: Potassium Chloride Oral Tablet 20 MEQ PO ×2 (09:00→22:02)
[2021-04-24] MEDS: Enoxaparin 40 MG/0.4 ML Syringe SC (09:00)
[2021-04-24] MEDS: Metoprolol Tartrate 25 MG Tablet PO ×2 (09:00→22:02)
[2021-04-24] MEDS: Aspirin 81 MG TAB.CHEW PO (09:00)
[2021-04-24] MEDS: buPROPion 100 MG Tablet PO ×2 (09:01→22:02)
[2021-04-24] MEDS: Azithromycin 250 MG Tablet PO (09:01)
[2021-04-24] MEDS: Famotidine 20 MG Tablet PO ×2 (09:01→22:02)
[2021-04-24] MEDS: Clopidogrel Bisulfate 75 MG Tablet PO (09:01)
[2021-04-24] MEDS: Losartan Potassium 25 MG Tablet PO (09:02)
--- NOTE | 2021-04-24 09:27 | NURSING ---
This RN taking over care of pt at this time. Report received from A Liseth VALENCIA
[2021-04-24] MEDS: Ipratropium/Albuterol Sulfate 3 ML AMPUL.NEB INHALATION ×4 (10:12→22:47)
[2021-04-24 10:17] LABS: Pathologist Review Reviewed
[2021-04-24] MEDS: Insulin Lispro 100 UNIT/ML INSULN.PEN SC ×2 (11:37→16:59)
--- NOTE | 2021-04-24 11:48 | CASEMGMT ---
ERIK GUTIERREZ assessment: Face to Face with patient for initial transition planning/care coordination assessment. ERIK GUTIERREZ introduced self and role at [facility], pt voices understanding and consents to assessment. Pt is sitting up on side of bed in no distress on 4Lnc, which is his home dose. Pt is A/Ox4 and answers all questions appropriately. Care providers, pharmacy, and demographics verified. Presentation: Pt c/o sudden onset SOB this am Admitting dx: Acute on chronic resp failure PCP: Tiff Specialists: padma Mendez; Stephy, cardio Preferred Pharmacy: [facility] Insurance: [employer] Group[employer]ave Prescription Benefit: [employer] Living Will/HPOA: Pt states does not have LW/HPOA and declines AD info. LNOK: Jessica Light, Living Arrangements: Pt states pt is currently living in tents with , daughter, and 2 grandsons(one is in his 20's and the other is 11yo) in someones backyard. Pt states they have running water and electricity and are able to use the home, when needed. Pt states they had to leave their mobile home 2 weeks ago and having been living this way since. Pt states does not have the money to get something else right now. Pt is independent with ADL's. E.Juan Carlos SW aware of all, voices understanding. Transportation: Pt states drives self and states no transportation concerns. Pt states they have one car to share amongst themselves. DME/HHC: Pt states has a rollator, powerchair, nebulizer, trilogy, and 4L nc thru [employer]. Pt declines need for any further DME. Pt states no hx of HHC or SNF. Pt states no concerns with going home at time of discharge. Pt is on disability. Pt states quit smoking cigarettes and drinking ETOH about 4 years ago. Pt states no further concerns/needs. CM to follow for increased home oxygen need and any further discharge planning/needs. Advised pt to ask for CM if any further questions/concerns/needs arise, voices understanding. Pt Goal: Home Plan: [place] ERIK GUTIERREZ
[2021-04-24 11:50] LABS: Bedside Glucose 236 mg/dL (70-110)
[2021-04-24 12:17] LABS: Troponin-I HS 9.5 pg/mL (3.0-78.5)
[2021-04-24] MEDS: 0.9% Saline Lock 10 ML Syringe IV ×2 (14:21→22:03)
[2021-04-24] MEDS: Ferrous Sulfate 325 MG Tablet PO (17:00)
[2021-04-24 17:05] LABS: Bedside Glucose 202 mg/dL (70-110)
[2021-04-24] MEDS: Atorvastatin Calcium 40 MG Tablet PO (22:02)
[2021-04-25] VITALS (18 sets, daily range): BP systolic 107–122; BP diastolic 62–70; PULSE 72–89; RESP 12–22; TEMP 36.6–36.7; O2SAT 94–98
[2021-04-25] MEDS: Insulin Lispro 100 UNIT/ML INSULN.PEN SC ×5 (00:25→21:06)
[2021-04-25 00:31] LABS: Bedside Glucose 187 mg/dL (70-110)
--- NOTE | 2021-04-25 05:45 | PCM.PN.INT ---
Assessment & Plan Assessment/Plan (1) Acute on chronic respiratory failure with hypoxia and hypercapnia: PLAN: RECOMMENDATIONS: 1. Continue empiric antimicrobials. 2. Continue scheduled bronchodilators and steroids. 3. Continue diuretic therapy as tolerated by hemodynamics and renal function. 4. Recommend use of AVAPS with naps and nightly. 5. Encourage incentive spirometer use and mobilize patient as tolerated. 6. The patient should follow-up in the pulmonary medicine clinic within 2 weeks of discharge. IMPRESSIONS: 1. Acute on chronic combined respiratory failure The patient has known end-stage COPD and chronic respiratory failure with a 4 L/min baseline requirement. He has been lost to follow-up recently in the pulmonary medicine clinic, but was previously being followed by Dr. Mendez. In addition to the aforementioned, the patient is prescribed a noninvasive ventilator at his baseline. He does report compliance with his noninvasive ventilator, supplemental oxygen and maintenance inhalers. It is unclear what precipitated the patient's acute decompensation this morning. However, in light of antimicrobial therapy, bronchodilators, steroids and diuretics, the patient has returned back to his baseline oxygen requirement. Recommend continuing the aforementioned intervention. Wean supplemental oxygen as tolerated. Encourage incentive spirometer use and mobilize patient as tolerated. Ideally, the patient should be set up with a follow-up office visit in the pulmonary medicine clinic within 2 weeks of discharge. 2. History of coronary artery disease status post PTCA/anxiety/hyperlipidemia/hypertension Complicates care, management, recovery and prognosis. Continue home medications as indicated. This note was generated with [employer] dictation software. It may contain incorrect words, spelling, and punctuation that were not noted in checking the note before signing. Subjective Subjective The patient was seen and examined at the bedside this morning. Events from the last 24 hours have been reviewed. The patient is afebrile and hemodynamically stable. He did tolerate AVAPS overnight per his home regimen. Yesterday, the patient was able to be weaned to 4 L/min via nasal cannula, which is his baseline requirement. The patient still has some residual shortness of breath but is otherwise feeling better. Objective Data Objective Data The patient's most recent lab work, culture data and imaging studies have all been personally reviewed. Surface echocardiogram from July 2019 revealed normal LV size with an ejection fraction of 65% and no evidence of diastolic dysfunction. Rapid coronavirus antigen testing was negative. Respiratory viral panel was negative. Strep and urine Legionella antigens were negative. Vital Signs: Vital Signs Temp Pulse Resp BP Pulse Ox 98.0 F 86 16 122/70 H 94 04/25/21 04:00 04/25/21 04:57 04/25/21 04:57 04/25/21 04:00 04/25/21 04:57 Oxygen Flow Rate (L/min) 4 Oxygen Delivery Method Bi-pap Weight: 110.5 kg Body Mass Index (BMI) 34.0 Intake & Output: Intake and Output for Last 24 Hours 04/23/21 04/24/21 04/25/21 23:59 23:59 23:59 Intake Total 1420 / 1420 Output Total 625 / 625 Balance 795 / 795 Lab / Micro Data Attestation: I reviewed the patient's lab results. Result Diagrams: 04/25/21 05:36 04/25/21 05:36 Labs: Laboratory Results - last 24 hr 04/24/21 05:10: Procalcitonin 0.08 04/24/21 05:20: Diff Path Review Reviewed 04/24/21 05:20: Sodium 140, Potassium 4.1, Chloride 98, Carbon Dioxide 39.0 H, Anion Gap 3 L, BUN 19 H, Creatinine 1.38 H, Estim Creat Clear Calc 59.87, Est GFR (MDRD) Af Amer 67, Est GFR (MDRD) Non-Af 56 L, BUN/Creatinine Ratio 13.8, Glucose 150 H, Calcium 8.7, Troponin I High Sens 7.1 04/24/21 05:20: B-Natriuretic Peptide 24.4 04/24/21 05:20: Magnesium 2.3 04/24/21 08:13: Troponin I High Sens 10.1 04/24/21 11:32: POC Glucose 236 H 04/24/21 11:38: Troponin I High Sens 9.5 04/24/21 16:58: POC Glucose 202 H 04/25/21 00:24: POC Glucose 187 H Micro: Microbiology 04/24/21 08:36 Interface Orders Respiratory Panel (PCR) - Final 04/24/21 09:00 Urine, Random Legionella Antigen - Final 04/24/21 09:00 Urine, Random Streptococcus pneumoniae Antigen (M - Final 04/24/21 06:45 Mucosa - Nose SARS-CoV-2 Antigen (Rapid) - Final ABG Data ABG results: ABG 04/24/21 05:45 Specimen Type YULISSA VBG pH 7.28 L VBG pO2 64 H VBG HCO3 37 H VBG Total CO2 40 H VBG O2 Sat (Calc) 88 H VBG Base Excess 11 H POC Mix VBG pCO2 Pt Tmp 79.8 H* O2 Delivery Device HFNC Liter Flow 12.0 Crit Call To/Read Back Yes Blood Gas Notified Whom Aguilar Blood Gas Notified Time 05:47:24 Radiography Diagnostic Testing: Radiology Impression Chest X-Ray 04/24/21 05:10 IMPRESSION: Findings suggest COPD. Blunting of the costophrenic angles could represent pleural thickening or pleural effusions. Bilateral basilar atelectasis/infiltrate. Electronically Signed: Jorge Alberto Suarez MD at 5:46 EDT Tel , Service support , Physical Exam Const alert, oriented x3 and no apparent distress Constitutional Narrative: Maintaining appropriate oxygen saturations on 4 L/min present. General Appearance: cooperative Nutritional Appearance: obese HEENT normocephalic, head/scalp atraumatic and moist oral mucous membranes Eyes PERRL, EOMs intact bilaterally and conjunctivae normal Neck supple General: trachea midline Resp normal respiratory effort and no use of accessory muscles Auscultation: diminished lung sounds; Negative for rales, rhonchi or wheezes Cardio regular rate, regular rhythm, S1 normal heart sound and S2 normal heart sound GI normal to inspection, nondistended, normoactive bowel sounds Extremity no clubbing, cyanosis or edema Skin no rashes or lesions noted Neuro CN's II-XII intact bilaterally, moves all extremities and no focal motor deficits Psych cooperative and affect normal Charges/Coding Visit Charges Inpatient E&M: 00539 Subs Hosp L2
[2021-04-25 05:55] LABS: Absolute Lymphocyte Count 0.85 X10^3/uL (0.83-4.51); Absolute Neutrophil Count 13.1 X10^3/uL (2.0-7.7); Basophil# 0.03 X10^3/uL; Basophil% 0.2 % (0-1); Hematocrit 41.3 % (40-54); Hemoglobin 12.1 g/dL (13.0-16.5); Lymphocyte # 0.85 X10^3/ul (0.83-4.51); Lymphocyte % 5.7 % (19-41); Mean Corp Hgb Conc 29.3 g/dL (32-36); Mean Corpuscular Hgb 26.1 pg (27.0-32.0); Mean Corpuscular Volume 89.2 fL (80-94); Mean Platelet Vol. 9.4 fl (6.2-12.0); Monocyte# 0.78 X10^3/uL; Monocyte% 5.2 % (0-10); NRBC Flagged by Analyzer 0 % (0-5); Neutrophil # 13.09 X10^3/uL (2.7-7.7); Neutrophil % 88.1 % (47-70); Platelet Count 351 K/mm3 (150-450); RBC Distribution Width CV 13.6 % (11.6-14.6); RBC Distribution Width SD 43.9 fl (35.1-43.9); Red Blood Count 4.63 M/mm3 (4.6-6.2); White Blood Count 14.9 K/mm3 (4.4-11.0)
[2021-04-25] MEDS: 0.9% Saline Lock 10 ML Syringe IV ×2 (06:08→21:11)
[2021-04-25 06:21] LABS: Bedside Glucose 201 mg/dL (70-110)
--- NOTE | 2021-04-25 06:21 | PN.HOSP_ITS ---
Subjective Subjective Patient with continued improvement, now transition to 4 L nasal cannula which is is his chronic supplementation level. Discussed frankly current situation, living in a tent but patient is apparently using a plug to be able to use his trilogy device and supplementation which was confirmed. Given patient clinical improvement discussed with him ability to take him off oxygen with potential shower and he notes that he has difficulty standing to shower and this is a chronic issue secondary to the severity of his dyspnea with any movement. Pulmonary evaluation is ongoing and patient does follow routinely with Dr. Zac Mendez. Patient does report that breathing still continues to improve but is severe at baseline. Patient denies fevers, chills, nausea, emesis, abdominal pain, chest pain. Objective Data Objective Data Vital Signs: Vital Signs Temp Pulse Resp BP Pulse Ox 98.0 F 86 16 122/70 H 94 04/25/21 04:00 04/25/21 04:57 04/25/21 04:57 04/25/21 04:00 04/25/21 04:57 Oxygen Flow Rate (L/min) 4 Oxygen Delivery Method Bi-pap Weight: 243 lb 9.773 oz Body Mass Index (BMI) 34.0 Intake & Output: Intake and Output for Last 24 Hours 04/23/21 04/24/21 04/25/21 23:59 23:59 23:59 Intake Total 1420 / 1420 240 / 240 Output Total 625 / 625 1275 / 1275 Balance 795 / 795 -1035 / -1035 Lab / Micro Data Result Diagrams: 04/25/21 05:36 04/25/21 05:36 Labs: Laboratory Results - last 24 hr 04/24/21 05:10: Procalcitonin 0.08 04/24/21 05:20: Diff Path Review Reviewed 04/24/21 05:20: Magnesium 2.3 04/24/21 08:13: Troponin I High Sens 10.1 04/24/21 11:32: POC Glucose 236 H 04/24/21 11:38: Troponin I High Sens 9.5 04/24/21 16:58: POC Glucose 202 H 04/25/21 00:24: POC Glucose 187 H 04/25/21 05:36: WBC 14.9 H, RBC 4.63, Hgb 12.1 L, Hct 41.3, MCV 89.2, MCH 26.1 L , MCHC 29.3 L, RDW Std Deviation 43.9, RDW Coeff of Asael 13.6, Plt Count 351, MPV 9.4, Immature Gran % (Auto) 0.800, Neut % (Auto) 88.1 H, Lymph % (Auto) 5.7 L, George % (Auto) 5.2, Eos % (Auto) 0.0, Baso % (Auto) 0.2, Absolute Neuts (auto) 13.1 H, Absolute Lymphs (auto) 0.85, Nucleated RBC % 0 04/25/21 06:05: POC Glucose 201 H Micro: Microbiology 04/24/21 08:36 Interface Orders Respiratory Panel (PCR) - Final 04/24/21 09:00 Urine, Random Legionella Antigen - Final 04/24/21 09:00 Urine, Random Streptococcus pneumoniae Antigen (M - Final 04/24/21 06:45 Mucosa - Nose SARS-CoV-2 Antigen (Rapid) - Final Physical Exam Narrative Physical Examination: General: awake, alert, oriented x 3 and cooperative, seated upright in the PCU bed, NAD, on chronic 4L NC. Skin: normal color, turgor, no icterus, cyanosis. HEENT: AT/NC, EOMI, PERRLA, improved MMM. Lungs: Diffusely diminished breath sounds, greater bases, improved effort from day prior, no rales, ronchi or wheezing, no evidence of any distress. Heart: Regular rate and rhythm; no gallop, rub audible. Abdomen: soft, obese, NTTP, ND, distant normal BS. Extremities: no cyanosis or clubbing, mild bilateral ankle edema, not markedly pitting. Neurological: patient awake, alert, oriented as noted; cognitive function peers baseline intact; pupils equally reactive to light and accomodation; cranial nerves II-XII grossly normal, moving all 4 extremities, no focal deficits, strength moderately to severely global decrease secondary to acute presentation and underlying comorbidities. Psychiatric: affect appears more rested, normal, no acute evidence of depressive or anxiety feelings. Assessment & Plan Assessment/Plan (1) Acute on chronic respiratory failure with hypoxia and hypercapnia: (2) Acute exacerbation of chronic obstructive pulmonary disease: PLAN: The patient is a 60 y/o M w/ PMHx: Chronic Diastolic CHF, Chronic Severe COPD with Chronic Hypoxic Respiratory Failure, Obesity, CAD s/p PCI, Anxiety, HTN, HLD, MICHELLE, Anxiety who presents to the [facility] ED on 04/24/21 with significant dyspnea, awaken from sleep secondary to the severity prompting ED evaluation. 1. Acute on Chronic Hypoxic and Hypercarbic Respiratory Failure secondary to Acute on COPD exacerbation: Patient mated to the PCU, initially placed on BiPAP, eventually transitioned nasal cannula, will continue wean to home supplementation, continue ATC duonebs, PRN albuterol, IV methylprednisolone, HOB, IS parameters, serial cardiac enzymes unremarkable, BNP 24.4 of note. Procalcitonin obtained and noted to be 0.08, respiratory viral panel negative, rapid Covid antigen negative, antigens negative. Given normal procalcitonin and negative panels/antigens we will continue azithromycin home regimen only. Will continue AVAPS with naps and nightly. Clinically improving; however, homeless on chronic oxygen and triology, noted usage confirmed but high risk return/failure. Will request re-evaluation by Dr. Zac Mendez who follows the patient outpatient 04/26/21 and if appropriate still, will plan discharge with follow-up with pulmonary medicine in 2 weeks as well as continued bronchodilators and prednisone taper if appropriate. 2. Chronic Kidney Disease Stage III, unclear subtype: Admission BUN/Cr 19/1.38, baseline renal function 1.1-1.3, 04/25/21 BUN/Cr 19/1.25, continue to trend. 3. Chronic normocytic anemia, iron deficiency: Admission hemoglobin 12.1, 10/05/20 hemoglobin 10.5, 04/25/21 Hgb 12.1, baseline appears primarily more recently -, stable, continue iron supplementation. 4. CAD: Status post PCI, initially mildly hypotensive upon presentation, continued on aspirin, Plavix, metoprolol, losartan regimen. 5. Chronic diastolic CHF: We will continue patient aspirin, Plavix, metoprolol, losartan, Lasix therapy. 6. Diabetes mellitus type II: Hold oral home regimen, monitor blood sugars given IV solumedrol usage, ADA diet, accu checks w/ ISS. 7. Anxiety and depression: We will continue patient home Wellbutrin regimen. 8. Hypertension: Continue home regimen including metoprolol, losartan, Lasix with hold parameters as needed, PRN hydralazine. 9. Hyperlipidemia: Continue home statin regimen. 10. Obesity: Weight loss and lifestyle changes encouraged. 11. GERD: Continue patient home famotidine regimen. 12. MICHELLE: Continue AVAPS with naps and nightly. 13. DVT prophylaxis: SCDs, Lovenox. 14. CODE STATUS: Full code. Charges/Coding Visit Charges Inpatient E&M: 35007 Subs Hosp L2
[2021-04-25 06:31] LABS: ALB/GLOB Ratio 0.8 RATIO (0.9-2.4); AST(SGOT) 17 U/L (15-37); Alanine Aminotransfer ALT/SGPT 26 U/L (16-61); Alkaline Phosphatase 116 U/L (45-117); Anion Gap 5 (5-15); BUN 19 mg/dL (7-18); BUN/Creat Ratio 15.2 RATIO (10-20); Calcium,Total 9.1 mg/dL (8.5-10.1); Chloride 98 mmol/L (98-107); Creatinine, Serum 1.25 mg/dL (0.70-1.30); EST Glomerular Filtration Rate 62 mL/min (>60); Est Glom Filt Rate - Afr Amer 75 mL/min (>60); Globulin 3.8 g/dL (2.2-4.2); Glucose 176 mg/dL (74-106); Potassium 4.5 mmol/L (3.5-5.1); Protein, Total 6.8 g/dL (6.4-8.2); Sodium Level 134 mmol/L (136-145)
[2021-04-25] MEDS: Ipratropium/Albuterol Sulfate 3 ML AMPUL.NEB INHALATION ×4 (07:01→23:12)
--- NOTE | 2021-04-25 07:49 | EKG12_ITS ---
Test Reason : REPEAT Blood Pressure : / mmHG Vent. Rate : 096 BPM Atrial Rate : 096 BPM P-R Int : 124 ms QRS Dur : 092 ms QT Int : 334 ms P-R-T Axes : 079 054 050 degrees QTc Int : 421 ms Normal sinus rhythm Normal ECG When compared with ECG of 24-APR-2021 05:36, MANUAL COMPARISON REQUIRED, DATA IS UNCONFIRMED Confirmed by ROMAN ROTHMAN, NAIF ([id number]), editor sound ANITA ALFARO ([id number]) on 05/05/2021 9:47:47 AM Referred By: ILANA Confirmed By:NAIF OWENS MD
[2021-04-25] MEDS: Aspirin 81 MG TAB.CHEW PO (08:04)
[2021-04-25] MEDS: Furosemide 40 MG Tablet PO ×2 (09:32→17:15)
[2021-04-25] MEDS: Potassium Chloride Oral Tablet 20 MEQ PO ×2 (09:32→21:06)
[2021-04-25] MEDS: Clopidogrel Bisulfate 75 MG Tablet PO (09:32)
[2021-04-25] MEDS: Famotidine 20 MG Tablet PO ×2 (09:32→21:06)
[2021-04-25] MEDS: Enoxaparin 40 MG/0.4 ML Syringe SC (09:32)
[2021-04-25] MEDS: buPROPion 100 MG Tablet PO ×2 (09:32→21:06)
[2021-04-25] MEDS: Metoprolol Tartrate 25 MG Tablet PO ×2 (09:32→21:06)
[2021-04-25 12:10] LABS: Bedside Glucose 169 mg/dL (70-110)
[2021-04-25] MEDS: Losartan Potassium 25 MG Tablet PO (15:00)
--- NOTE | 2021-04-25 17:13 | CM.ED ---
SW Note Referral Source: [employer] Referral Reason: Child in home living condition SW reviewed assessment completed by CM. SW met with patient. He reports that he and his , daughter and 2 grandchildren (one age 11) reside in a tent in a friends yard. He said that they have electric due to them using a light pole next to the tent. Patient said that his , daughter, and the persons yard that they are staying at are looking for housing. Patient said that he is unable to go to [employer] or community services due to medical conditions and his and daughter work at [employer] thus have limited time. SW discussed referral to [facility] due to concerns regarding the 11 year old residing in a tent and [facility]. Patient verbalized understanding. 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 Sw made referral to [facility] based on the 11 year old living in a tent and requesting assistance for family with community resources. Sommer said that they would need to open a case to work with family. SW verbalized understanding. SW updated chief fishery division and patient that referral made to [facility]. Patient asked when [facility] would be contacting them. SW advised that this telegraphic typewriter operator is unaware of when family will be contacted. Patient said well, like I told you.. my and daughter work alot. SW verbalized understanding. CM updated and she will also update MD Plan: [facility] to open case and provide assistance to family Melinda MARTINEZ
[2021-04-25] MEDS: Ferrous Sulfate 325 MG Tablet PO (17:15)
[2021-04-25 17:26] LABS: Bedside Glucose 172 mg/dL (70-110)
[2021-04-25] MEDS: Atorvastatin Calcium 40 MG Tablet PO (21:06)
[2021-04-26] VITALS (12 sets, daily range): BP systolic 108–117; BP diastolic 61–66; PULSE 69–90; RESP 12–25; TEMP 36.2–36.9; O2SAT 94–98
[2021-04-26 00:01] LABS: Bedside Glucose 187 mg/dL (70-110)
[2021-04-26 05:49] LABS: Absolute Lymphocyte Count 1.08 X10^3/uL (0.83-4.51); Absolute Neutrophil Count 15.5 X10^3/uL (2.0-7.7); Basophil# 0.02 X10^3/uL; Basophil% 0.1 % (0-1); Hematocrit 41.3 % (40-54); Hemoglobin 12.2 g/dL (13.0-16.5); Lymphocyte # 1.08 X10^3/ul (0.83-4.51); Lymphocyte % 6.1 % (19-41); Mean Corp Hgb Conc 29.5 g/dL (32-36); Mean Corpuscular Volume 88.1 fL (80-94); Mean Platelet Vol. 9.3 fl (6.2-12.0); Monocyte# 0.93 X10^3/uL; Monocyte% 5.3 % (0-10); NRBC Flagged by Analyzer 0 % (0-5); Neutrophil # 15.52 X10^3/uL (2.7-7.7); Neutrophil % 87.7 % (47-70); Platelet Count 407 K/mm3 (150-450); RBC Distribution Width SD 44.5 fl (35.1-43.9); Red Blood Count 4.69 M/mm3 (4.6-6.2); White Blood Count 17.7 K/mm3 (4.4-11.0)
[2021-04-26] MEDS: 0.9% Saline Lock 10 ML Syringe IV (06:35)
[2021-04-26] MEDS: Insulin Lispro 100 UNIT/ML INSULN.PEN SC ×2 (06:35→11:43)
[2021-04-26 06:46] LABS: Bedside Glucose 154 mg/dL (70-110)
[2021-04-26 06:47] LABS: ALB/GLOB Ratio 0.9 RATIO (0.9-2.4); AST(SGOT) 10 U/L (15-37); Alanine Aminotransfer ALT/SGPT 24 U/L (16-61); Albumin, Serum 3.3 g/dL (3.2-5.0); Alkaline Phosphatase 107 U/L (45-117); Anion Gap 4 (5-15); BUN 22 mg/dL (7-18); BUN/Creat Ratio 17.7 RATIO (10-20); Calcium,Total 9.3 mg/dL (8.5-10.1); Chloride 96 mmol/L (98-107); Creatinine, Serum 1.24 mg/dL (0.70-1.30); EST Glomerular Filtration Rate 63 mL/min (>60); Est Glom Filt Rate - Afr Amer 76 mL/min (>60); Estimated Creatinine Clearance 66.63 ml/min; Globulin 3.5 g/dL (2.2-4.2); Glucose 194 mg/dL (74-106); Potassium 4.4 mmol/L (3.5-5.1); Protein, Total 6.8 g/dL (6.4-8.2); Sodium Level 137 mmol/L (136-145)
--- NOTE | 2021-04-26 07:21 | PN.CC_ITS ---
Assessment & Plan Assessment/Plan (1) Acute on chronic respiratory failure with hypoxia and hypercapnia: PLAN: RECOMMENDATIONS: 1. Okay to continue baseline suppression therapy with azithromycin. 2. Continue scheduled bronchodilators. Okay to transition to prednisone therapy and wean over 12 days 3. Continue diuretic therapy as tolerated by hemodynamics and renal function. 4. Recommend use of AVAPS with naps and nightly. 5. Encourage incentive spirometer use and mobilize patient as tolerated. 6. The patient should follow-up in the pulmonary medicine clinic within 2 weeks of discharge. IMPRESSIONS: 1. Acute on chronic combined respiratory failure The patient has known end-stage COPD and chronic respiratory failure with a 4 L/min baseline requirement. Patient with significant social issues complicating his pulmonary management. Patient appears to be back to his baseline at this time. Patient does not have any significant leukocytosis on presentation. Leukocytosis today is likely secondary to initiation of steroid therapy. Patient would benefit from social work consult for home situation. Okay to continue with suppressive therapy. Prednisone can be weaned over the next 12 days. Clinical suspicion for decompensation secondary to the weather exposure. Patient should have a walking oximetry prior to discharge, but anticipate patient can be discharged in the next 24 to 48 hours at the latest. 2. History of coronary artery disease status post PTCA/anxiety/hyperlipidemia/hypertension Complicates care, management, recovery and prognosis. Continue home medications as indicated. This note was generated with [employer] dictation software. It may contain incorrect words, spelling, and punctuation that were not noted in checking the note before signing. Subjective Subjective Patient did okay overnight. Patient reports subjective improvement in overall condition. Patient continues to have a cough. No chest pain was reported. Objective Data Objective Data Vital Signs: Vital Signs Temp Pulse Resp BP Pulse Ox 36.9 C 78 25 H 116/66 97 04/26/21 03:26 04/26/21 05:14 04/26/21 05:14 04/26/21 03:26 04/26/21 05:14 Oxygen Flow Rate (L/min) 4 Oxygen Delivery Method Bi-pap Weight: 110.5 kg Body Mass Index (BMI) 34.0 Intake & Output: Intake and Output for Last 24 Hours 04/24/21 04/25/21 04/26/21 23:59 23:59 23:59 Intake Total 1420 / 1420 1260 / 1260 120 / 120 Output Total 625 / 625 2775 / 2775 1030 / 1030 Balance 795 / 795 -1515 / -1515 -910 / -910 Lab / Micro Data Result Diagrams: 04/26/21 05:17 04/26/21 05:17 Labs: Laboratory Results - last 24 hr 04/25/21 11:55: POC Glucose 169 H 04/25/21 17:18: POC Glucose 172 H 04/25/21 21:05: POC Glucose 187 H 04/26/21 05:17: WBC 17.7 H, RBC 4.69, Hgb 12.2 L, Hct 41.3, MCV 88.1, MCH 26.0 L , MCHC 29.5 L, RDW Std Deviation 44.5 H, RDW Coeff of Asael 14.0, Plt Count 407, MPV 9.3, Immature Gran % (Auto) 0.800, Neut % (Auto) 87.7 H, Lymph % (Auto) 6.1 L, [place] % (Auto) 5.3, Eos % (Auto) 0.0, Baso % (Auto) 0.1, Absolute Neuts (auto) 15.5 H, Absolute Lymphs (auto) 1.08, Nucleated RBC % 0 04/26/21 05:17: Sodium 137, Potassium 4.4, Chloride 96 L, Carbon Dioxide 37.0 H, Anion Gap 4 L, BUN 22 H, Creatinine 1.24, Estim Creat Clear Calc 66.63, Est GFR (MDRD) Af Amer 76, Est GFR (MDRD) Non-Af 63, BUN/Creatinine Ratio 17.7, Glucose 194 H, Calcium 9.3, Total Bilirubin 0.30, AST 10 L, ALT 24, Alkaline Phosphatase 107, Total Protein 6.8, Albumin 3.3, Globulin 3.5, Albumin/Globulin Ratio 0.9 04/26/21 06:34: POC Glucose 154 H Micro: Microbiology 04/24/21 08:36 Interface Orders Respiratory Panel (PCR) - Final 04/24/21 09:00 Urine, Random Legionella Antigen - Final 04/24/21 09:00 Urine, Random Streptococcus pneumoniae Antigen (M - Final 04/24/21 06:45 Mucosa - Nose SARS-CoV-2 Antigen (Rapid) - Final Physical Exam Const Constitutional Narrative: Maintaining appropriate oxygen saturations on 4 L/min present. Lymph Lymphatic: no lymphadenopathy noted Chest Chest Narrative: Increased AP diameter Resp normal respiratory effort and no use of accessory muscles Auscultation: diminished lung sounds; Negative for rales, rhonchi or wheezes Cardio S1 normal heart sound and S2 normal heart sound Extremity normal to inspection and normal capillary refill General Extremity: clubbing; Negative for cyanosis or edema Skin Skin Narrative: Dermal atrophy Neuro CN's II-XII intact bilaterally and moves all extremities Psych mental status grossly normal, thought process normal and cooperative Charges/Coding Visit Charges Inpatient E&M: 23626 Subs Hosp L2
[2021-04-26] MEDS: Ipratropium/Albuterol Sulfate 3 ML AMPUL.NEB INHALATION ×3 (07:24→14:09)
[2021-04-26] MEDS: Enoxaparin 40 MG/0.4 ML Syringe SC (08:48)
[2021-04-26] MEDS: Famotidine 20 MG Tablet PO (08:48)
[2021-04-26] MEDS: Furosemide 40 MG Tablet PO (08:49)
[2021-04-26] MEDS: Aspirin 81 MG TAB.CHEW PO (08:49)
[2021-04-26] MEDS: Potassium Chloride Oral Tablet 20 MEQ PO (08:49)
[2021-04-26] MEDS: Metoprolol Tartrate 25 MG Tablet PO (08:49)
[2021-04-26] MEDS: Clopidogrel Bisulfate 75 MG Tablet PO (08:49)
[2021-04-26] MEDS: buPROPion 100 MG Tablet PO (08:49)
--- NOTE | 2021-04-26 09:30 | DCINST_ITS ---
Discharge Instructions Diet Discharge Diet: - (ADA 1800/Cardiac diet recommended.) Activity Discharge Activity: - (Continue controlled activity given chronic oxygen usage, recent exacerbation on steroids. Advance activity per Pulmonary direction once re-evaluated.) Weight Bearing Status: Weight bearing as tolerated Dressing / Incision Call your doctor if you observe: Fever of 101 or Higher, Shortness of breath (Worsened above baseline shortness of breath.), Dizziness, Fainting spells, Swelling in the ankles, Chest pain, Prolonged hiccupping and Increased palpitations (irregular heartbeat) Follow Up Care Test Results: Test results from this visit will be discussed in further detail at your follow-up appointment, if applicable. Discharge Plan Admission Admit Date/Time: 04/24/21 06:50 Primary Reason for Your Visit: Acute on Chronic Resp Failure, COPD Exacerbation Attending Provider: Mahnaz Perez Primary Care Provider: Kenia Matthew Consulting Providers: Zac Mendez ; Alec Golden ; Jesika Ortiz BANQUET CAPTAIN Instructions Patient Instructions: COPD: Chronic Coughing, COPD: Coping with Mucus, COPD: Coping with Fatigue, Chronic Lung Disease ... Additional Instructions / Restrictions: PULMONARY RECOMMENDATIONS: 1. Continue baseline suppression therapy with azithromycin. 2. Continue scheduled bronchodilators. 3. Complete prednisone therapy taper x 12 days with transition to 10 mg daily chronic regimen following. 3. Recommend use of AVAPS with naps and nightly. 4. Encourage incentive spirometer use and mobilize patient as tolerated. 5. Follow-up in the pulmonary medicine clinic within 2 weeks of discharge. Discharge Orders/Prescriptions Prescriptions: New prednisone 10 mg tablet See Taper mg PO .Taper 12 Days Qty: 36 RF: 0 Continued bupropion HCl 100 mg tablet 100 mg PO BID RF: 0 albuterol sulfate [Ventolin HFA] 90 mcg/actuation HFA aerosol inhaler 2 puff INHALATION Q2H PRN (Reason: shortness of breath or wheezing) RF: 0 tiotropium bromide [Spiriva with HandiHaler] 18 mcg capsule, w/inhalation device 1 cap INHALATION DAILY RF: 0 ipratropium bromide 0.02 % solution 0.5 mg INHALATION Q4H RF: 0 losartan 25 mg tablet 25 mg PO 1400 RF: 0 furosemide 40 MG tablet 40 mg PO BID RF: 0 atorvastatin 40 MG tablet 40 mg PO QHS RF: 0 clopidogrel 75 MG tablet 75 mg PO DAILY RF: 0 aspirin 81 MG tablet,chewable 81 mg PO DAILY@0800 RF: 0 multivitamin with folic acid 1 TABLET tablet 1 tab PO DAILY RF: 0 budesonide-formoterol 1 INHALER inhaler 2 puff INHALATION BID RF: 0 roflumilast 500 MCG tablet 500 mcg PO DAILY RF: 0 famotidine 20 MG tablet 20 mg PO BID RF: 0 metformin 500 mg tablet 500 mg PO BREAKFAST RF: 0 metformin 500 mg tablet 250 mg PO QHS RF: 0 albuterol sulfate 2.5 MG/3 ML solution for nebulization 2.5 mg INHALATION Q2H PRN PRN (Reason: dyspnea, wheezing) Qty: 1 RF: 0 cholecalciferol (vitamin D3) 1,000 UNIT tablet 1,000 unit PO DAILY RF: 0 budesonide 0.5 MG/2 ML suspension for nebulization 0.5 mg INHALATION BID RF: 0 potassium chloride 20 MEQ tablet,ER particles/crystals 20 meq PO BID RF: 0 ferrous sulfate 325 MG tablet 325 mg PO DINNER RF: 0 Oxygen, Home [Home Oxygen] 4 - 6 lpm NASAL CONT RF: 0 metoprolol tartrate 25 mg tablet 25 mg PO BID Qty: 180 RF: 3 azithromycin 250 mg tablet 250 mg PO QMWF Qty: 12 RF: 6 Held prednisone 10 mg tablet 10 mg PO QDAY Qty: 100 RF: 2 Hold Instructions: Resume on 05/08/21. Restart chronic regimen following completion of 12 day taper. Referrals / Follow Up: Zac Mendez MD [STAFF PHYSICIAN] - (Please keep your upcoming visit with Pulmonary requested follow-up within 2 weeks of discharge.) Kenia Matthew MD [Primary Care Provider] - (Follow-up within 3-5 days to review admission.) Disposition Disposition (needs filled in before D/C Order can be placed): Home Health Service
--- NOTE | 2021-04-26 09:32 | PCM.DC.SUM ---
Providers Date of Admission: 04/24/21 Primary Care Physician: Dr. Kenia Matthew MD Consultations 04/24/21 07:49 Consult: Telephone Installer / Pulmonary Medicine Routine Consulting Provider: Pulmonary Medicine denise [place] Reason for Consult: acute on chronic respiratory failure due to COPD exacerbation EMERGENT Consult: No MD Notified: Yes Date Notified: 04/24/21 Time Notified: 06:49 Method of Notification: Text Reason For Visit: ACUTE ON CHRONIC RESP FAILURE;HYPOCAPNIA,HYPOXIA Diagnosis Discharge Diagnosis (1) Acute on chronic respiratory failure with hypoxia and hypercapnia: Status: Chronic Code(s): J96.21 - Acute and chronic respiratory failure with hypoxia; J96.22 - Acute and chronic respiratory failure with hypercapnia Medications at Discharge Home Medications aspirin 81 mg PO DAILY@0800 10/04/14 atorvastatin 40 mg PO QHS 10/04/14 clopidogrel 75 mg PO DAILY 10/04/14 furosemide 40 mg PO BID 10/04/14 multivitamin with folic acid 1 tab PO DAILY 10/04/14 budesonide-formoterol 2 puff INHALATION BID 02/24/15 roflumilast 500 mcg PO DAILY 02/24/15 famotidine 20 mg PO BID 08/01/15 bupropion HCl 100 mg tablet 100 mg PO BID 10/25/17 albuterol sulfate 2.5 mg INHALATION Q2H PRN PRN #1 box 11/08/17 albuterol sulfate 90 mcg/actuation aerosol inhaler 2 puff INHALATION Q2H PRN g 11/11/17 tiotropium bromide 18 mcg capsule with inhalation device 1 cap INHALATION DAILY 11/11/17 cholecalciferol (vitamin D3) 1,000 unit PO DAILY tab 02/13/18 ipratropium bromide 0.02 % solution for inhalation 0.5 mg INHALATION Q4H ml 05/01/18 losartan 25 mg tablet 25 mg PO 1400 09/14/18 budesonide 0.5 mg INHALATION BID 10/14/18 Oxygen, Home [Home Oxygen] 4 - 6 lpm NASAL CONT 07/24/19 ferrous sulfate 325 mg PO DINNER 07/24/19 potassium chloride 20 meq PO BID 07/24/19 metformin 500 mg tablet 250 mg PO QHS tab 10/01/19 metformin 500 mg tablet 500 mg PO BREAKFAST tab 10/01/19 prednisone 10 mg tablet 10 mg PO QDAY #100 tab 07/21/20 metoprolol tartrate 25 mg tablet 25 mg PO BID #180 tab 12/15/20 azithromycin 250 mg tablet 250 mg PO QMWF #12 tab 03/23/21 prednisone See Taper PO .Taper 12 Days #36 tab 04/26/21 Hospital Course Operations None Procedures EKG Summary of Care Provided Minutes Spent on Discharge: 35 Hospital Course: Discharge Diagnoses: 1. Acute on Chronic Hypoxic and Hypercarbic Respiratory Failure secondary to Acute on COPD exacerbation 2. Chronic Kidney Disease Stage III, unclear subtype 3. Chronic normocytic anemia, iron deficiency 4. CAD status post PCI 5. Chronic diastolic CHF 6. Diabetes mellitus type II 7. Anxiety and depression 8. Hypertension 9. Hyperlipidemia 10. Obesity 11. GERD 12. MICHELLE 13. CODE STATUS: Full code. Discharge Summary: The patient is a 60 y/o M w/ PMHx: Chronic Diastolic CHF, Chronic Severe COPD with Chronic Hypoxic Respiratory Failure, Obesity, CAD s/p PCI, Anxiety, HTN, HLD, MICHELLE, Anxiety who presented to the [facility] ED on 04/24/21 with significant dyspnea, awaken from sleep secondary to the severity prompting ED evaluation. Patient admitted to the PCU, initially placed on BiPAP continuously, eventually transitioned to with naps and q HS per his normal routine and eventually his chronic nasal cannula 4L NC, continued ATC duonebs, PRN albuterol, IV methylprednisolone, HOB, IS parameters, serial cardiac enzymes unremarkable, BNP 24.4 of note. Procalcitonin obtained and noted to be 0.08, respiratory viral panel negative, rapid Covid antigen negative, antigens negative. Given normal procalcitonin and negative panels/antigens we will continue azithromycin home regimen only. Given clinical improvement to chronic baseline and cleared per Dr. Mendez, patient discharged with follow-up with pulmonary medicine within 2 weeks as well as continued bronchodilators and prednisone taper. During evaluation patient evaluated per JANINE/BRENDA given homeless status, living in tents, although access to plug with confirmed q HS device usage and also noted to have child in his care. Discharge Time: > 35 Minutes DAY OF DISCHARGE PROGRESS NOTE: Subjective: Patient without acute event overnight per self and nursing report. Patient reports being at his baseline with chronic cough and chronic dyspnea, worse with exertion. Evaluated this AM per his Pulmonary physician and cleared for discharge. Patient denies fever, chills, nausea, emesis, abdominal pain, chest pain. Patient agreeable to discharge to home on chronic supplementation with steroid taper with pulmonary follow-up. Patient will be discharged with follow-up with primary care physician within 3-5 days in addition to continuation of planned Pulmonary follow-up. Objective: T 97.9, heart 89, BP 108/61, respiratory rate 18, 94% on 4 L nasal cannula. Physical Examination: General: awake, alert, oriented x 3 and cooperative, seated upright in the PCU bed, NAD, on chronic 4L NC. Skin: normal color, turgor, no icterus, cyanosis. HEENT: AT/NC, EOMI, PERRLA, MMM. Lungs: Diffusely diminished breath sounds, greater bases, baseline, no rales, ronchi or wheezing, no evidence of any distress. Heart: Regular rate and rhythm; no gallop, rub audible. Abdomen: soft, obese, NTTP, ND, distant normal BS. Extremities: no cyanosis or clubbing, mild bilateral ankle edema, improved. Neurological: patient awake, alert, oriented as noted; cognitive function peers baseline intact; pupils equally reactive to light and accomodation; cranial nerves II-XII grossly normal, moving all 4 extremities, no focal deficits, strength moderately to severely global decreased, improving, baseline debilitated secondary to chronic lung disease. Psychiatric: affect appears normal, no acute evidence of depressive or anxiety feelings. Assessment and Plan: Please see hospital summary above. Weight / BMI Weight Weight: 243 lb 9.773 oz Body Mass Index (BMI) 34.0 ABG / Lab / Microbiology Data Result Diagrams: 04/26/21 05:17 04/26/21 05:17 Laboratory: Laboratory Results - last 24 hr 04/25/21 11:55: POC Glucose 169 H 04/25/21 17:18: POC Glucose 172 H 04/25/21 21:05: POC Glucose 187 H 04/26/21 05:17: WBC 17.7 H, RBC 4.69, Hgb 12.2 L, Hct 41.3, MCV 88.1, MCH 26.0 L, MCHC 29.5 L, RDW Std Deviation 44.5 H, RDW Coeff of Asael 14.0, Plt Count 407, MPV 9.3, Immature Gran % (Auto) 0.800, Neut % (Auto) 87.7 H, Lymph % (Auto) 6.1 L, [place] % (Auto) 5.3, Eos % (Auto) 0.0, Baso % (Auto) 0.1, Absolute Neuts (auto) 15.5 H, Absolute Lymphs (auto) 1.08, Nucleated RBC % 0 04/26/21 05:17: Sodium 137, Potassium 4.4, Chloride 96 L, Carbon Dioxide 37.0 H, Anion Gap 4 L, BUN 22 H, Creatinine 1.24, Estim Creat Clear Calc 66.63, Est GFR (MDRD) Af Amer 76, Est GFR (MDRD) Non-Af 63, BUN/Creatinine Ratio 17.7, Glucose 194 H, Calcium 9.3, Total Bilirubin 0.30, AST 10 L, ALT 24, Alkaline Phosphatase 107, Total Protein 6.8, Albumin 3.3, Globulin 3.5, Albumin/Globulin Ratio 0.9 04/26/21 06:34: POC Glucose 154 H Microbiology: Microbiology 04/24/21 08:36 Interface Orders Respiratory Panel (PCR) - Final 04/24/21 09:00 Urine, Random Legionella Antigen - Final 04/24/21 09:00 Urine, Random Streptococcus pneumoniae Antigen (M - Final 04/24/21 06:45 Mucosa - Nose SARS-CoV-2 Antigen (Rapid) - Final D/C Instructions Discharge Diet: - (ADA 1800/Cardiac diet recommended.) Weight Bearing Status: Weight bearing as tolerated Call your doctor if you observe: Fever of 101 or Higher, Shortness of breath (Worsened above baseline shortness of breath.), Dizziness, Fainting spells, Swelling in the ankles, Chest pain, Prolonged hiccupping and Increased palpitations (irregular heartbeat) Meaningful Use Info Meaningful Use Diagnoses (Choose all that apply): None applicable Discharge Plan Admission Admit Date/Time: 04/24/21 06:50 Primary Reason for Your Visit: Acute on Chronic Resp Failure, COPD Exacerbation Attending Provider: Mahnaz Perez Primary Care Provider: Kenia Matthew Consulting Providers: Zac Mendez ; Alec Golden ; Jesika Ortiz WELL [employer]ER Instructions Patient Instructions: COPD: Chronic Coughing, COPD: Coping with Mucus, COPD: Coping with Fatigue, Chronic Lung Disease ... Additional Instructions / Restrictions: PULMONARY RECOMMENDATIONS: 1. Continue baseline suppression therapy with azithromycin. 2. Continue scheduled bronchodilators. 3. Complete prednisone therapy taper x 12 days with transition to 10 mg daily chronic regimen following. 3. Recommend use of AVAPS with naps and nightly. 4. Encourage incentive spirometer use and mobilize patient as tolerated. 5. Follow-up in the pulmonary medicine clinic within 2 weeks of discharge. Discharge Orders/Prescriptions Prescriptions: New prednisone 10 mg tablet See Taper mg PO .Taper 12 Days Qty: 36 RF: 0 Continued bupropion HCl 100 mg tablet 100 mg PO BID RF: 0 albuterol sulfate [Ventolin HFA] 90 mcg/actuation HFA aerosol inhaler 2 puff INHALATION Q2H PRN (Reason: shortness of breath or wheezing) RF: 0 tiotropium bromide [Spiriva with HandiHaler] 18 mcg capsule, w/inhalation device 1 cap INHALATION DAILY RF: 0 ipratropium bromide 0.02 % solution 0.5 mg INHALATION Q4H RF: 0 losartan 25 mg tablet 25 mg PO 1400 RF: 0 furosemide 40 MG tablet 40 mg PO BID RF: 0 atorvastatin 40 MG tablet 40 mg PO QHS RF: 0 clopidogrel 75 MG tablet 75 mg PO DAILY RF: 0 aspirin 81 MG tablet,chewable 81 mg PO DAILY@0800 RF: 0 multivitamin with folic acid 1 TABLET tablet 1 tab PO DAILY RF: 0 budesonide-formoterol 1 INHALER inhaler 2 puff INHALATION BID RF: 0 roflumilast 500 MCG tablet 500 mcg PO DAILY RF: 0 famotidine 20 MG tablet 20 mg PO BID RF: 0 metformin 500 mg tablet 500 mg PO BREAKFAST RF: 0 metformin 500 mg tablet 250 mg PO QHS RF: 0 albuterol sulfate 2.5 MG/3 ML solution for nebulization 2.5 mg INHALATION Q2H PRN PRN (Reason: dyspnea, wheezing) Qty: 1 RF: 0 cholecalciferol (vitamin D3) 1,000 UNIT tablet 1,000 unit PO DAILY RF: 0 budesonide 0.5 MG/2 ML suspension for nebulization 0.5 mg INHALATION BID RF: 0 potassium chloride 20 MEQ tablet,ER particles/crystals 20 meq PO BID RF: 0 ferrous sulfate 325 MG tablet 325 mg PO DINNER RF: 0 Oxygen, Home [Home Oxygen] 4 - 6 lpm NASAL CONT RF: 0 metoprolol tartrate 25 mg tablet 25 mg PO BID Qty: 180 RF: 3 azithromycin 250 mg tablet 250 mg PO QMWF Qty: 12 RF: 6 Held prednisone 10 mg tablet 10 mg PO QDAY Qty: 100 RF: 2 Hold Instructions: Resume on 05/08/21. Restart chronic regimen following completion of 12 day taper. Referrals / Follow Up: Zac Mendez MD [STAFF PHYSICIAN] - (Please keep your upcoming visit with Pulmonary requested follow-up within 2 weeks of discharge.) Kenia Matthew MD [Primary Care Provider] - (Follow-up within 3-5 days to review admission.) Disposition Disposition (needs filled in before D/C Order can be placed): Home Health Service Charges/Coding Visit Charges Inpatient E&M: 41622 Disch Hosp
[2021-04-26 11:55] LABS: Bedside Glucose 232 mg/dL (70-110)
[2021-04-26] MEDS: Losartan Potassium 25 MG Tablet PO (14:49)
--- NOTE | 2021-04-27 13:58 | CASEMGMT ---
ERIK GUTIERREZ Discharge Follow-up Phone Call: HARI: Yuval Strata: 3 Call Date: 04/27/21 Discharge Date: 04/26/21 Time of Call: 1355 Duration: 3 min Admitting Diagnosis: Acute hypoxic respiratory Failure ERIK GUTIERREZ completed follow-up phone call after recent hospitalization. Patient states he is doing fine and had no complaints or issues at this time. Patient states he is currently at [facility] getting blood work done for follow-up appt tomorrow. Patient states prescriptions for prednisone not fill because it was too soon as patient already had prescription at home. Patient had no further questions or concerns at this time.
== END 2021-04-26 16:04 | disposition home health service (06) | DRG 190 ==
LOC: ED 05:54 → PCU 07:06
PROVIDERS: Admitting Provider Student in an Organized Health Care Education/Training Program; Emergency Provider Emergency Medicine; PCP Internal Medicine; Visit Provider Family Medicine
DX: J44.1 Chronic obstructive pulmonary disease with (acute) exacerbation (principal); J96.21 Acute and chronic respiratory failure with hypoxia; J96.22 Acute and chronic respiratory failure with hypercapnia; I13.0 Hypertensive heart and chronic kidney disease with heart failure and stage 1 through stage 4 chronic kidney disease, or unspecified chronic kidney disease; I50.32 Chronic diastolic (congestive) heart failure; I25.10 Atherosclerotic heart disease of native coronary artery without angina pectoris; G47.33 Obstructive sleep apnea (adult) (pediatric); E78.5 Hyperlipidemia, unspecified; E11.22 Type 2 diabetes mellitus with diabetic chronic kidney disease; F41.9 Anxiety disorder, unspecified; F32.9 Major depressive disorder, single episode, unspecified; E66.9 Obesity, unspecified; D50.9 Iron deficiency anemia, unspecified; N18.2 Chronic kidney disease, stage 2 (mild); K21.9 Gastro-esophageal reflux disease without esophagitis; Z79.899 Other long term (current) drug therapy; Z79.82 Long term (current) use of aspirin; Z79.02 Long term (current) use of antithrombotics/antiplatelets; Z79.84 Long term (current) use of oral hypoglycemic drugs; Z99.81 Dependence on supplemental oxygen; Z95.5 Presence of coronary angioplasty implant and graft; Z87.891 Personal history of nicotine dependence; Z86.16 Personal history of COVID-19; Z59.0 Homelessness; Z68.34 Body mass index [BMI] 34.0-34.9, adult
CPT/HCPCS: 36415; 71045; 80048; 80053; 82803; 82962; 83735; 83880; 84145; 84484; 85025; 87070; 87077; 87205; 87426; 87449; 87633; 93005; 94002; 94003; 94640; 97802; 99251; 99285; A4216; G0463

== ENCOUNTER 2021-08-03 03:41 | Inpatient (IN) | payer MEDICARE, MEDICAID, SELFPAY ==
[2021-08-03] VITALS (27 sets, daily range): BP systolic 101–153; BP diastolic 67–113; PULSE 84–122; RESP 12–33; TEMP 36.2–36.9; O2SAT 90–100; BMI 32.3; BMI 33.3
--- NOTE | 2021-08-03 03:45 | EKG12_ITS ---
Test Reason : SOB Blood Pressure : / mmHG Vent. Rate : 110 BPM Atrial Rate : 110 BPM P-R Int : 126 ms QRS Dur : 086 ms QT Int : 328 ms P-R-T Axes : 073 052 041 degrees QTc Int : 443 ms Sinus tachycardia with Premature supraventricular complexes and with occasional Premature ventricular complexes Otherwise normal ECG Confirmed by RUTH ANN ROTHMAN, TRENTON ([id number]), legal editor ANITA ALFARO ([id number]) on 08/05/2021 8:58:31 AM Referred By: MARLIN Confirmed By:TRENTON VALLECILLO MD
--- NOTE | 2021-08-03 03:45 | RAD_ITS ---
EXAM: XR Chest, 1 View CLINICAL INDICATION: 60 years old, Male; sob TECHNIQUE: Frontal view of the chest. This report was created using [employer] report generation technology. COMPARISON: None. FINDINGS: Lungs and pleural spaces: Mild infiltrates or atelectasis in the lung bases. Emphysema. No pneumothorax. No effusion. Heart: Unremarkable. Cardiac silhouette not enlarged. Mediastinum: Central airways and mediastinal contour are unremarkable. Bones/joints: Unremarkable. Soft tissues: Unremarkable. RAD/Chest 1 View (Portable) IMPRESSION: 1. Mild infiltrates or atelectasis in the lung bases. 2. Emphysema. Electronically Signed: Roland Gottlieb MD at 4:37 EDT Tel , Service support ,
[2021-08-03] MEDS: MethylPREDNISolone 125 MG/2 ML Vial IV (03:51)
[2021-08-03] MEDS: Ipratropium/Albuterol Sulfate 3 ML AMPUL.NEB INHALATION ×5 (03:57→19:16)
[2021-08-03] MEDS: Albuterol 2.5 MG/3 ML VIAL.NEB. INHALATION ×3 (03:58→04:09)
[2021-08-03 04:16] LABS: Absolute Lymphocyte Count 4.08 X10^3/uL (0.83-4.51); Basophil% 0.5 % (0-1); Eosinophil# 0.28 X10^3/uL; Eosinophils% 1.4 % (0-5); Hematocrit 45.1 % (40-54); Hemoglobin 13.2 g/dL (13.0-16.5); Lymphocyte # 4.08 X10^3/ul (0.83-4.51); Mean Corp Hgb Conc 29.3 g/dL (32-36); Mean Corpuscular Hgb 26.5 pg (27.0-32.0); Mean Corpuscular Volume 90.6 fL (80-94); Monocyte# 1.71 X10^3/uL; Monocyte% 8.8 % (0-10); NRBC Flagged by Analyzer 0 % (0-5); Neutrophil # 13.01 X10^3/uL (2.7-7.7); POSITIVE DIFFERENTIAL YES; Platelet Count 428 K/mm3 (150-450); RBC Distribution Width CV 14.3 % (11.6-14.6); RBC Distribution Width SD 47.4 fl (35.1-43.9); Red Blood Count 4.98 M/mm3 (4.6-6.2); White Blood Count 19.4 K/mm3 (4.4-11.0)
--- NOTE | 2021-08-03 04:16 | EDS_ITS ---
HPI History of Present Illness Chief Complaint: Shortness of Breath Informant: patient and EMS Onset/Context/Timing Onset: Today Current Severity: Severe Maximum Severity: Severe Narrative Narrative: Patient presents via EMS in respiratory distress. Patient reported to them that he has been more short of breath the past couple days but suddenly worsened around midnight. He arrives on CPAP. Short after arrival patient transitioned to BiPAP and work of breathing significantly improved. Patient denies chest pain at this time but states he has been having pain recently. No fever. [facility] Medical History (Updated 08/03/21 @ 04:[address] Maria M Warren MD) Acute exacerbation of chronic obstructive pulmonary disease Acute on chronic respiratory failure with hypoxia and hypercapnia Anxiety Congestive heart failure Coronary artery disease Essential hypertension Hyperlipidemia MICHELLE (obstructive sleep apnea) Stage 4 very severe COPD by GOLD classification Tobacco abuse Type 2 diabetes mellitus Home Medications aspirin 81 mg PO DAILY@0800 10/04/14 [History Last Taken 07/31/20] atorvastatin 40 mg PO QHS 10/04/14 [History Last Taken 07/30/20] clopidogrel 75 mg PO DAILY 10/04/14 [History Last Taken 07/30/20] furosemide 40 mg PO BID 10/04/14 [History Last Taken 07/30/20] multivitamin with folic acid 1 tab PO DAILY 10/04/14 [History Last Taken 07/30/20] budesonide-formoterol 2 puff INHALATION BID 02/24/15 [History Last Taken 10/13/18 22:00 2 puff] roflumilast 500 mcg PO DAILY 02/24/15 [History Last Taken 10/13/18 08:00 500 mg] famotidine 20 mg PO BID 08/01/15 [History Last Taken 07/31/20] bupropion HCl 100 mg tablet 100 mg PO BID 10/25/17 [History Last Taken 07/30/20] albuterol sulfate 2.5 mg INHALATION Q2H PRN PRN #1 box 11/08/17 [Rx Last Taken 10/13/18 22:00 1 tx] albuterol sulfate 90 mcg/actuation aerosol inhaler 2 puff INHALATION Q2H PRN g 11/11/17 [History Last Taken 10/14/18 06:30 2 puffs] tiotropium bromide 18 mcg capsule with inhalation device 1 cap INHALATION DAILY 11/11/17 [History Last Taken 10/13/18 14:00 1 cap] cholecalciferol (vitamin D3) 1,000 unit PO DAILY tab 02/13/18 [Rx Last Taken 07/31/20] ipratropium bromide 0.02 % solution for inhalation 0.5 mg INHALATION Q4H ml 05/01/18 [History Last Taken 10/13/18 22:00 1 tx] losartan 25 mg tablet 25 mg PO 1400 09/14/18 [History Last Taken 07/30/20] budesonide 0.5 mg INHALATION BID 10/14/18 [History Last Taken 10/13/18 18:00 1 tx] Oxygen, Home [Home Oxygen] 4 - 6 lpm NASAL CONT 07/24/19 [History Last Taken Unknown] ferrous sulfate 325 mg PO DINNER 07/24/19 [History Last Taken 07/30/20] potassium chloride 20 meq PO BID 07/24/19 [History Last Taken 07/31/20] metformin 500 mg tablet 250 mg PO QHS tab 10/01/19 [History Last Taken 07/30/20] metformin 500 mg tablet 500 mg PO BREAKFAST tab 10/01/19 [History Last Taken 07/31/20] metoprolol tartrate 25 mg tablet 25 mg PO BID #180 tab 12/15/20 [Rx Last Taken Unknown] azithromycin 250 mg tablet 250 mg PO QMWF #12 tab 03/23/21 [Rx Last Taken Unknown] prednisone 10 mg tablet 20 mg PO QDAY #200 tab 06/03/21 [Rx Last Taken Unknown] Allergy/AdvReac Type Severity Reaction Status Date / Time diazepam [From Valium] AdvReac Vomiting Verified 08/03/21 03:42 Family History Mother Diabetes Father Heart disease CVA (cerebral vascular accident) Brother Diabetes Asthma Surgical History Presence of stent in coronary artery (~07/2006) S/P rotator cuff repair Social History household members: family housing: homeless Smoking Status: Former smoker Tobacco: How many years used: 40 how long ago did patient quit smokin, 2pk/day second hand exposure: Yes alcohol intake: never substance use type: does not use ROS ROS ED Review of Systems ROS Unobtainable: other Details: Limited due to respiratory distress Constitutional Constitutional ED: Denies chills or fever(s) Eyes Eyes: Denies change in vision Cardiovascular Cardiovascular: Reports chest pain Respiratory/Chest Respiratory/Chest: Reports dyspnea; Denies cough Gastrointestinal Gastrointestinal: Denies abdominal pain, diarrhea, nausea or vomiting Musculoskeletal Musculoskeletal: Denies back pain Integumentary Denies rash EXAM Physical Exam Const Vital Signs: 08/03/21 03:42 08/03/21 03:46 08/03/21 03:47 Temperature 98.3 F 98.3 F Temperature Source Temporal Temporal Pulse Rate 122 H 118 H 122 H Respiratory Rate 33 H 27 H 33 H Respiratory Effort Respiratory Depth Respiratory Pattern Tachypnea Blood Pressure 153/113 H 153/113 H Blood Pressure Mean 126 126 Pulse Ox 90 95 99 Oxygen Delivery Method CPAP Bi-pap Fraction of Inspired Oxygen (FIO2) 35 08/03/21 03:48 08/03/21 03:55 08/03/21 04:27 Temperature Temperature Source Pulse Rate 108 H 105 H Respiratory Rate 21 H 21 H Respiratory Effort Short of Breath Labored Accessory Muscle Use Mechanically Ventilated Short of Breath Respiratory Depth Shallow Deep Respiratory Pattern Tachypnea Tachypnea Blood Pressure Blood Pressure Mean Pulse Ox 94 Oxygen Delivery Method Bi-pap Bi-pap Fraction of Inspired Oxygen (FIO2) 40 30 Positive well nourished and well developed General Appearance ED: well developed HEENT Reports moist mucous membranes Chest Wall inspection of chest normal and palpation of chest normal Resp Auscultation: diminished lung sounds Cardio Rate: tachycardic GI non-tender Palpation: soft Extremity normal to inspection Neuro oriented x3 Neuro Narrative: Moves all 4 extremities. Sensorium / Orientation: alert Psych Mood & Affect: anxious Skin no rashes or lesions noted MDM MDM MDM Narrative Medical decision making narrative: Patient was transitioned to BiPAP on arrival to the emergency room and work of breathing significantly improved. Covid test, lab work, EKG, chest x-ray ordered. Patient was given DuoNeb +2 albuterol treatments along with IV Solu-Medrol. Lab Data Attestation: I reviewed the patient's lab results. Labs: Laboratory Results - last 24 hr 08/03/21 08/03/21 08/03/21 03:52 03:52 03:52 WBC 19.4 H RBC 4.98 Hgb 13.2 Hct 45.1 MCV 90.6 MCH 26.5 L MCHC 29.3 L RDW Std Deviation 47.4 H RDW Coeff of Asael 14.3 Plt Count 428 MPV 9.0 Immature Gran % (Auto) 1.300 H Neut % (Auto) 67.0 Lymph % (Auto) 21.0 [place] % (Auto) 8.8 Eos % (Auto) 1.4 Baso % (Auto) 0.5 Absolute Neuts (auto) 13.0 H Absolute Lymphs (auto) 4.08 Nucleated RBC % 0 D-Dimer Quant (PE/DVT) <= 0.27 Sodium 139 Potassium 4.2 Chloride 98 Carbon Dioxide 38.0 H Anion Gap 3 L BUN 16 Creatinine 1.21 Estim Creat Clear Calc 70.37 Est GFR (MDRD) Af Amer 78 Est GFR (MDRD) Non-Af 65 BUN/Creatinine Ratio 13.2 Glucose 143 H Calcium 9.1 Troponin I High Sens 7 Radiography Chest X-Ray - ED: 1 View, Read by ED Physician, Chronic Changes (Chronic changes with atelectasis in the bilateral bases.) and - Diagnostic Testing: Clinical Impression(s) from Imaging Studies Chest X-Ray 08/03/21 03:45 IMPRESSION: 1. Mild infiltrates or atelectasis in the lung bases. 2. Emphysema. Electronically Signed: Roland Gottlieb MD at 4:37 EDT Tel , Service support , EKG Initial EKG: Attestation: I personally reviewed and interpreted this EKG as follows: Interpretation: Sinus Tachycardia (Sinus tach at 110 with single PVC noted. No significant ST change.) Treatment and Re-Evaluation Comments:: On repeat evaluation patient resting much more comfortably. FiO2 is down to 30%. Patient will be given a dose of Zithromax given his COPD exacerbation. Lab work remarkable for white count of 19.4, likely stress r esponse from his respiratory distress. D-dimer and troponin are both negative. Will discuss with hospitalist for admission. Discharge Plan Triage Chief Complaint: Shortness of Breath ED Provider: Maria M Warren Dx/Rx/DC Orders Clinical Impression: Acute and chronic respiratory failure, COPD exacerbation Prescriptions: No Action bupropion HCl 100 mg tablet 100 mg PO BID RF: 0 albuterol sulfate [Ventolin HFA] 90 mcg/actuation HFA aerosol inhaler 2 puff INHALATION Q2H PRN (Reason: shortness of breath or wheezing) RF: 0 tiotropium bromide [Spiriva with HandiHaler] 18 mcg capsule, w/inhalation device 1 cap INHALATION DAILY RF: 0 ipratropium bromide 0.02 % solution 0.5 mg INHALATION Q4H RF: 0 losartan 25 mg tablet 25 mg PO 1400 RF: 0 prednisone 10 mg tablet 20 mg PO QDAY Qty: 200 RF: 6 furosemide 40 MG tablet 40 mg PO BID RF: 0 atorvastatin 40 MG tablet 40 mg PO QHS RF: 0 clopidogrel 75 MG tablet 75 mg PO DAILY RF: 0 aspirin 81 MG tablet,chewable 81 mg PO DAILY@0800 RF: 0 multivitamin with folic acid 1 TABLET tablet 1 tab PO DAILY RF: 0 budesonide-formoterol 1 INHALER inhaler 2 puff INHALATION BID RF: 0 roflumilast 500 MCG tablet 500 mcg PO DAILY RF: 0 famotidine 20 MG tablet 20 mg PO BID RF: 0 metformin 500 mg tablet 500 mg PO BREAKFAST RF: 0 metformin 500 mg tablet 250 mg PO QHS RF: 0 albuterol sulfate 2.5 MG/3 ML solution for nebulization 2.5 mg INHALATION Q2H PRN PRN (Reason: dyspnea, wheezing) Qty: 1 RF: 0 cholecalciferol (vitamin D3) 1,000 UNIT tablet 1,000 unit PO DAILY RF: 0 budesonide 0.5 MG/2 ML suspension for nebulization 0.5 mg INHALATION BID RF: 0 potassium chloride 20 MEQ tablet,ER particles/crystals 20 meq PO BID RF: 0 ferrous sulfate 325 MG tablet 325 mg PO DINNER RF: 0 Oxygen, Home [Home Oxygen] 4 - 6 lpm NASAL CONT RF: 0 metoprolol tartrate 25 mg tablet 25 mg PO BID Qty: 180 RF: 3 azithromycin 250 mg tablet 250 mg PO QMWF Qty: 12 RF: 6 Primary Care Provider: Kenia Matthew Referrals: Kenia Matthew MD [Primary Care Provider] - Disposition Disposition: Acute Care Hospital [facility]
[2021-08-03 04:25] LABS: D-Dimer Quantitative (DVT/PE) <= 0.27 FEU/ug/m (0.27-0.49)
[2021-08-03 04:28] LABS: Differential Indicated SCAN CRITERIA MET
[2021-08-03 04:35] LABS: Anion Gap 3 (5-15); BUN 16 mg/dL (7-18); BUN/Creat Ratio 13.2 RATIO (10-20); Calcium,Total 9.1 mg/dL (8.5-10.1); Chloride 98 mmol/L (98-107); Creatinine, Serum 1.21 mg/dL (0.70-1.30); EST Glomerular Filtration Rate 65 mL/min (>60); Est Glom Filt Rate - Afr Amer 78 mL/min (>60); Estimated Creatinine Clearance 70.37 ml/min; Glucose 143 mg/dL (74-106); Potassium 4.2 mmol/L (3.5-5.1); Sodium Level 139 mmol/L (136-145); Troponin-I HS 7 pg/mL (3.0-78.0)
--- NOTE | 2021-08-03 04:56 | PCM.HP.STD ---
HPI - General General Date of Admission: 08/03/21 Date of Service: 08/03/21 Chief Complaint: Dyspnea, worsening. HPI Narrative The patient is a 60 y/o M w/ PMHx: Chronic Diastolic CHF, Chronic Severe COPD with Chronic Hypoxic Respiratory Failure (4-6L NC baseline) with triology q HS, Obesity, CAD s/p PCI, Anxiety, HTN, HLD, MICHELLE, Anxiety who presents to the [facility] ED on 08/03/21 with history of worsening dyspnea, progressively over the last 2 to 3 days however he severely worsened around midnight prompting EMS call with CPAP placed immediately upon their evaluation and patient shortly transition to BiPAP following arrival in the ED. He has been coughing but has been nonproductive. He denies any recent fevers or chills. He has been vaccinated against COVID-19 and notes he does need to get his booster. Patient did attempt home aerosol treatments without improvement. Work-up in the ED included T 98.3, heart rate 122, BP 153/113, respiratory 33, initially 90% on CPAP upon presentation transition to BiPAP 40% FiO2 with 99% oxygenation, D-dimer 0.27, CBC with WBC 19.4, hemoglobin 13.2, platelet 428 with left shift, BMP with contacts at 38, glucose 143 otherwise not marked appearing, high-sensitivity cardiac troponin 7, chest x-ray with mild infiltrates or atelectasis in the bases, chronic COPD type changes, EKG with sinus tachycardia with no acute evidence of ischemia. In the ED patient administered azithromcyin, solumedrol and duoneb therapies. [facility] Medical History (Updated 08/03/21 @ 04:[address] Mahnaz Perez MD) Acute exacerbation of chronic obstructive pulmonary disease Acute on chronic respiratory failure with hypoxia and hypercapnia Anxiety Congestive heart failure Coronary artery disease Essential hypertension Hyperlipidemia MICHELLE (obstructive sleep apnea) Stage 4 very severe COPD by GOLD classification Tobacco abuse Type 2 diabetes mellitus Home Medications aspirin 81 mg PO DAILY@0800 10/04/14 [History Last Taken 07/31/20] atorvastatin 40 mg PO QHS 10/04/14 [History Last Taken 07/30/20] clopidogrel 75 mg PO DAILY 10/04/14 [History Last Taken 07/30/20] furosemide 40 mg PO BID 10/04/14 [History Last Taken 07/30/20] multivitamin with folic acid 1 tab PO DAILY 10/04/14 [History Last Taken 07/30/20] budesonide-formoterol 2 puff INHALATION BID 02/24/15 [History Last Taken 10/13/18 22:00 2 puff] roflumilast 500 mcg PO DAILY 02/24/15 [History Last Taken 10/13/18 08:00 500 mg] famotidine 20 mg PO BID 08/01/15 [History Last Taken 07/31/20] bupropion HCl 100 mg tablet 100 mg PO BID 10/25/17 [History Last Taken 07/30/20] albuterol sulfate 2.5 mg INHALATION Q2H PRN PRN #1 box 11/08/17 [Rx Last Taken 10/13/18 22:00 1 tx] albuterol sulfate 90 mcg/actuation aerosol inhaler 2 puff INHALATION Q2H PRN g 11/11/17 [History Last Taken 10/14/18 06:30 2 puffs] tiotropium bromide 18 mcg capsule with inhalation device 1 cap INHALATION DAILY 11/11/17 [History Last Taken 10/13/18 14:00 1 cap] cholecalciferol (vitamin D3) 1,000 unit PO DAILY tab 02/13/18 [Rx Last Taken 07/31/20] ipratropium bromide 0.02 % solution for inhalation 0.5 mg INHALATION Q4H ml 05/01/18 [History Last Taken 10/13/18 22:00 1 tx] losartan 25 mg tablet 25 mg PO 1400 09/14/18 [History Last Taken 07/30/20] budesonide 0.5 mg INHALATION BID 10/14/18 [History Last Taken 10/13/18 18:00 1 tx] Oxygen, Home [Home Oxygen] 4 - 6 lpm NASAL CONT 07/24/19 [History Last Taken Unknown] ferrous sulfate 325 mg PO DINNER 07/24/19 [History Last Taken 07/30/20] potassium chloride 20 meq PO BID 07/24/19 [History Last Taken 07/31/20] metformin 500 mg tablet 250 mg PO QHS tab 10/01/19 [History Last Taken 07/30/20] metformin 500 mg tablet 500 mg PO BREAKFAST tab 10/01/19 [History Last Taken 07/31/20] metoprolol tartrate 25 mg tablet 25 mg PO BID #180 tab 12/15/20 [Rx Last Taken Unknown] azithromycin 250 mg tablet 250 mg PO QMWF #12 tab 03/23/21 [Rx Last Taken Unknown] prednisone 10 mg tablet 20 mg PO QDAY #200 tab 06/03/21 [Rx Last Taken Unknown] Allergy/AdvReac Type Severity Reaction Status Date / Time diazepam [From Valium] AdvReac Vomiting Verified 08/03/21 03:42 Family History Mother Diabetes Father Heart disease CVA (cerebral vascular accident) Brother Diabetes Asthma Surgical History Presence of stent in coronary artery (~07/2006) S/P rotator cuff repair Social History (Updated 08/03/21 @ 05:[address] Mahnaz Perez MD) household members: family and other details: Previously was homeless, now living with his daughter. Smoking Status: Former smoker Tobacco: How many years used: 40 how long ago did patient quit smokin, 2pk/day second hand exposure: Yes alcohol intake: never substance use type: does not use ROS ROS Narrative Admission Review of Systems: CONSTITUTIONAL: No weight loss, fever, chills, + weakness or fatigue. HEENT: Eyes: No visual loss, blurred vision, double vision or yellow sclerae. Ears, Nose, Throat: No hearing loss, sneezing, congestion, runny nose or sore throat. SKIN: No rash or itching, lesions, wounds. CARDIOVASCULAR: No chest pain, chest pressure or chest discomfort, palpitations, edema, orthopnea, syncopal events. RESPIRATORY: + shortness of breath, cough without marked sputum, wheezing, No hemoptysis. GASTROINTESTINAL: No anorexia, nausea, vomiting or diarrhea, abdominal pain, melena, BRBPR. GENITOURINARY: No dysuria, frequency, urgency or retention. NEUROLOGICAL: No headache, dizziness, syncope, paralysis, ataxia, numbness or tingling in the extremities, focal weakness, change in bowel or bladder control, seizure. MUSCULOSKELETAL: + muscle, back pain, joint pain or stiffness. HEMATOLOGIC: + anemia, bleeding or bruising. LYMPHATICS: No enlarged nodes. No history of splenectomy. PSYCHIATRIC: + history of depression or anxiety. ENDOCRINOLOGIC: No reports of sweating, cold or heat intolerance. No polyuria or polydipsia. ALLERGIES: + history of asthma, hives, eczema or rhinitis. Vital Signs Vital Signs Vital Signs: 08/03/21 03:42 08/03/21 03:46 08/03/21 03:47 Temperature 98.3 F 98.3 F Temperature Source Temporal Temporal Pulse Rate 122 H 118 H 122 H Respiratory Rate 33 H 27 H 33 H Respiratory Effort Respiratory Depth Respiratory Pattern Tachypnea Blood Pressure 153/113 H 153/113 H Blood Pressure Mean 126 126 Pulse Ox 90 95 99 Oxygen Delivery Method CPAP Bi-pap Fraction of Inspired Oxygen (FIO2) 35 08/03/21 03:48 08/03/21 03:55 08/03/21 04:27 Temperature Temperature Source Pulse Rate 108 H 105 H Respiratory Rate 21 H 21 H Respiratory Effort Short of Breath Labored Accessory Muscle Use Mechanically Ventilated Short of Breath Respiratory Depth Shallow Deep Respiratory Pattern Tachypnea Tachypnea Blood Pressure Blood Pressure Mean Pulse Ox 94 Oxygen Delivery Method Bi-pap Bi-pap Fraction of Inspired Oxygen (FIO2) 40 30 08/03/21 04:43 08/03/21 04:47 Temperature 97.9 F Temperature Source Temporal Pulse Rate 103 H 103 H Respiratory Rate 20 H 20 H Respiratory Effort Respiratory Depth Respiratory Pattern Blood Pressure 120/78 120/78 Blood Pressure Mean 92 92 Pulse Ox 92 92 Oxygen Delivery Method Bi-pap Bi-pap Fraction of Inspired Oxygen (FIO2) 30 Weight Weight: 238 lb 15.697 oz Body Mass Index (BMI) 32.3 Physical Exam Narrative Physical Examination: General: awake, alert, oriented x 3 and cooperative, seated upright in the ED bed, fatigued appearing, BiPAP in place, evidence of respiratory compromise but improved since initial ED presentation. Skin: normal color, turgor, no icterus, cyanosis. HEENT: AT/NC, EOMI, PERRLA, mildly dry MM, BiPAP in place, no obvious carotid bruits however BiPAP sound makes examination difficult, no obvious marked JVD however thickened neck makes examination difficult. Lungs: Diminished breath sounds throughout, increased respiratory rate and accessory muscle usage with evidence of distress, BiPAP in place, noted crackles, no rales or wheezing. Heart: Tachycardic with regular rhythm; no gallop, rub audible. Abdomen: soft, obese, NTTP, ND, distant normal BS, no obvious HSM. Extremities: no cyanosis or clubbing, mild bilateral ankle edema, not markedly pitting. Neurological: patient awake, alert, oriented as noted; cognitive function appears baseline intact; pupils equally reactive to light and accomodation; cranial nerves II-XII grossly normal, moving all 4 extremities, no focal deficits, strength moderately to severely global decrease secondary to acute presentation and underlying comorbidities. Psychiatric: affect appears fatigued, increased work of breathing accessory muscle usage as noted above but improved since initial ED presentation, no acute evidence of depressive or anxiety feelings. Results Lab / Micro Data Result Diagrams: 08/03/21 03:52 08/03/21 03:52 Labs: Laboratory Results - last 24 hr 08/03/21 03:52: WBC 19.4 H, RBC 4.98, Hgb 13.2, Hct 45.1, MCV 90.6, MCH 26.5 L, MCHC 29.3 L, RDW Std Deviation 47.4 H, RDW Coeff of Asael 14.3, Plt Count 428, MPV 9.0, Immature Gran % (Auto) 1.300 H, Neut % (Auto) 67.0, Lymph % (Auto) 21.0, [place] % (Auto) 8.8, Eos % (Auto) 1.4, Baso % (Auto) 0.5, Absolute Neuts (auto) 13.0 H, Absolute Lymphs (auto) 4.08, Nucleated RBC % 0 08/03/21 03:52: D-Dimer Quant (PE/DVT) <= 0.27 08/03/21 03:52: Sodium 139, Potassium 4.2, Chloride 98, Carbon Dioxide 38.0 H, Anion Gap 3 L, BUN 16, Creatinine 1.21, Estim Creat Clear Calc 70.37, Est GFR (MDRD) Af Amer 78, Est GFR (MDRD) Non-Af 65, BUN/Creatinine Ratio 13.2, Glucose 143 H, Calcium 9.1, Troponin I High Sens 7 Radiology Impression Chest X-Ray 08/03/21 03:45 IMPRESSION: 1. Mild infiltrates or atelectasis in the lung bases. 2. Emphysema. Electronically Signed: Roland Gottlieb MD at 4:37 EDT Tel , Service support , Assessment & Plan Assessment/Plan (1) Acute and chronic respiratory failure: QUALIFIERS: Respiratory failure complication: hypoxia and hypercapnia Qualified Code(s): J96.21 - Acute and chronic respiratory failure with hypoxia; J96.22 - Acute and chronic respiratory failure with hypercapnia (2) COPD exacerbation: PLAN: The patient is a 60 y/o M w/ PMHx: Chronic Diastolic CHF, Chronic Severe COPD with Chronic Hypoxic Respiratory Failure (4-6L NC baseline) with triology q HS, Obesity, CAD s/p PCI, Anxiety, HTN, HLD, MICHELLE, Anxiety who presents to the [facility] ED on 08/03/21 with history of worsening dyspnea, progressively over the last 2 to 3 days however he severely worsened around midnight prompting EMS call. 1. Acute on Chronic Hypoxic and Hypercarbic Respiratory Failure secondary to Acute on COPD exacerbation on chronic steroids: Will admit patient to PCU, continue BIPAP, continue ATC duonebs, PRN albuterol, IV methylprednisolone, HOB, IS parameters, once appropriate per prior recommendations will transition to AVAPS with naps and q HS, obtain sputum Cx, respiratory viral panel and procalcitonin. Will maintain on chronic azithromycin. Will defer further abx therapy pending procalcitonin. Will request consultation with Dr. Mendez who will be coming on service and is familiar with the patient and following him outpatient. 2. Chronic Kidney Disease Stage III, unclear subtype: Admission BUN/Cr 16/1.21, baseline renal function 1.1-1.3, continue to trend. 3. Chronic normocytic anemia, iron deficiency: Admission hemoglobin 13.2, baseline appears primarily more recently more recently 12 range, stable, continue iron supplementation. 4. CAD: Status post PCI, continued on aspirin, Plavix, metoprolol, losartan regimen. 5. Chronic diastolic CHF: We will continue patient aspirin, Plavix, metoprolol, losartan, Lasix therapy. 6. Diabetes mellitus type II: Hold oral home regimen, monitor blood sugars given IV solumedrol usage, ADA diet, accu checks w/ ISS. 7. Anxiety and depression: We will continue patient home Wellbutrin regimen. 8. Hypertension: Continue home regimen including metoprolol, losartan, Lasix with hold parameters as needed, PRN hydralazine. 9. Hyperlipidemia: Continue home statin regimen. 10. Obesity: Weight loss and lifestyle changes encouraged. 11. GERD: Continue patient home famotidine regimen. 12. MICHELLE: Continue BIPAP currently and once appropriate transition to AVAPS with naps and nightly. 13. DVT prophylaxis: SCDs, Lovenox. 14. CODE STATUS: Discussed CODE status at length including difference between FULL code, DNR-CCA and DNR-CC status. Following discussions about the differences in these status, requested Full code status. Advanced Care Planning Face to Face Time: 16 minutes. Charges/Coding Visit Charges Inpatient E&M: 43352 Init Hosp L3 Procedures Hospitalists Procedures: 74642 Advncd Care Plan 30 Min
--- NOTE | 2021-08-03 05:59 | NURSING ---
Pt received two doses of a covid shot but he doesn't know which one, probably thinking moderna.
--- NOTE | 2021-08-03 06:01 | PCS.PANDOC ---
PANDEMIC DOCUMENTATION INITIATED: Date: 05/25/2021 Time: 190
[2021-08-03] MEDS: Insulin Lispro 100 UNIT/ML INSULN.PEN SC ×4 (06:34→21:29)
[2021-08-03 06:36] LABS: Bedside Glucose 181 mg/dL (70-110)
[2021-08-03] MEDS: Budesonide Respules 0.5 MG/2 ML AMPUL.NEB. INHALATION (07:21)
--- NOTE | 2021-08-03 08:34 | EX.PCM.CONCC ---
Assessment & Plan Assessment/Plan (1) Acute and chronic respiratory failure: QUALIFIERS: Respiratory failure complication: hypoxia and hypercapnia Qualified Code(s): J96.21 - Acute and chronic respiratory failure with hypoxia; J96.22 - Acute and chronic respiratory failure with hypercapnia (2) COPD exacerbation: (3) Congestive heart failure: QUALIFIERS: Heart failure type: systolic Heart failure chronicity: chronic Qualified Code(s): I50.22 - Chronic systolic (congestive) heart failure (4) MICHELLE (obstructive sleep apnea): (5) Acute on chronic respiratory failure with hypoxia and hypercapnia: PLAN: RECOMMENDATIONS: 1. Okay to continue Solu-Medrol, bronchodilators and azithromycin. 2. Await viral panel 3. Continue diuretic therapy as tolerated by hemodynamics and renal function. 4. Recommend use of AVAPS with naps and nightly. Potential BiPAP breaks in the future 5. Encourage incentive spirometer use and mobilize patient as tolerated. 6. Okay to discontinue budesonide given systemic steroids IMPRESSIONS: 1. Acute on chronic combined respiratory failure The patient has known end-stage COPD and chronic respiratory failure with a 4 L/min baseline requirement. Patient with significant social issues complicating his pulmonary management. Patient does have a recent sick contact with a school-aged child. Clinical suspicion for viral etiology. We will continue with azithromycin and Solu-Medrol for now. Await viral panel. Patient should be continued on AVAPS with sleep and potentially will be able to take BiPAP breaks during the day. Await response to therapy. Low clinical suspicion for COVID-19. 2. History of coronary artery disease status post PTCA/anxiety/hyperlipidemia/hypertension Complicates care, management, recovery and prognosis. Continue home medications as indicated. This note was generated with [employer] dictation software. It may contain incorrect words, spelling, and punctuation that were not noted in checking the note before signing. HPI Consult Data Date of Consult: 08/03/21 HPI Narrative HPI Narrative: TIARA JACOB is a 60 M, with past medical history listed below and well-known to me from the outpatient office, who presents to [facility] on 08/03/2021 secondary to progressive shortness of breath. Patient reportedly started to have symptoms approximately a week ago. Patient had called our office on Tuesday late in the day, so could not be seen. Over the course of the weekend, patient reported that he started to have severe worsening of his shortness of breath at around midnight. Patient called EMS and was placed on CPAP for the transport. Patient had reported increasing cough, but no change in sputum. Patient reports he had been compliant with his home NIV and oxygen therapy. Patient reported that his grandson did have a URI recently. Patient is on 20 mg of prednisone daily at baseline. On arrival to the ER, patient was transitioned to BiPAP therapy with significant improvement in respiratory distress. Initially in the ER, patient was afebrile, but tachycardic at 122 bpm. Patient was also hypertensive at 153/113. These findings did improve with the initiation of BiPAP therapy. Laboratory work-up showed a leukocytosis of 19.4, hemoglobin of 13.2 and baseline renal function at creatinine of 1.2. High-sensitivity troponin and D-dimer were unremarkable. Chest x-ray showed some mild atelectasis in the bases and EKG showed sinus tachycardia with no ST changes. Patient was placed on Zithromax and admitted to the floor on BiPAP therapy for further evaluation. Since arriving to the floor, patient reports subjective improvement in overall condition. Patient is not currently requiring any change in BiPAP settings. Patient is denying any chest pain, abdominal pain, nausea or vomiting. Patient does report a sick contact. Patient denies any tobacco abuse or other toxic exposures. Patient has not changed his baseline prednisone therapy. Patient denies any dysuria or hematuria. Review of systems otherwise negative from a constitutional, HEENT, respiratory, cardiovascular, GI, genitourinary, musculoskeletal, skin, neurologic, psychiatric and hematologic system unless stated above. [facility] Medical History (Updated 08/03/21 @ 04:[address] Mahnaz Perez MD) Acute exacerbation of chronic obstructive pulmonary disease Acute on chronic respiratory failure with hypoxia and hypercapnia Anxiety Congestive heart failure Coronary artery disease Essential hypertension Hyperlipidemia MICHELLE (obstructive sleep apnea) Stage 4 very severe COPD by GOLD classification Tobacco abuse Type 2 diabetes mellitus Home Medications aspirin 81 mg PO DAILY@0800 10/04/14 [History Last Taken 07/31/20] atorvastatin 40 mg PO QHS 10/04/14 [History Last Taken 07/30/20] clopidogrel 75 mg PO DAILY 10/04/14 [History Last Taken 07/30/20] furosemide 40 mg PO BID 10/04/14 [History Last Taken 07/30/20] multivitamin with folic acid 1 tab PO DAILY 10/04/14 [History Last Taken 07/30/20] budesonide-formoterol 2 puff INHALATION BID 02/24/15 [History Last Taken 10/13/18 22:00 2 puff] roflumilast 500 mcg PO DAILY 02/24/15 [History Last Taken 10/13/18 08:00 500 mg] famotidine 20 mg PO BID 08/01/15 [History Last Taken 07/31/20] bupropion HCl 100 mg tablet 100 mg PO BID 10/25/17 [History Last Taken 07/30/20] albuterol sulfate 2.5 mg INHALATION Q2H PRN PRN #1 box 11/08/17 [Rx Last Taken 10/13/18 22:00 1 tx] albuterol sulfate 90 mcg/actuation aerosol inhaler 2 puff INHALATION Q2H PRN g 11/11/17 [History Last Taken 10/14/18 06:30 2 puffs] tiotropium bromide 18 mcg capsule with inhalation device 1 cap INHALATION DAILY 11/11/17 [History Last Taken 10/13/18 14:00 1 cap] cholecalciferol (vitamin D3) 1,000 unit PO DAILY tab 02/13/18 [Rx Last Taken 07/31/20] ipratropium bromide 0.02 % solution for inhalation 0.5 mg INHALATION Q4H ml 05/01/18 [History Last Taken 10/13/18 22:00 1 tx] losartan 25 mg tablet 25 mg PO 1400 09/14/18 [History Last Taken 07/30/20] budesonide 0.5 mg INHALATION BID 10/14/18 [History Last Taken 10/13/18 18:00 1 tx] Oxygen, Home [Home Oxygen] 4 - 6 lpm NASAL CONT 07/24/19 [History Last Taken Unknown] ferrous sulfate 325 mg PO DINNER 07/24/19 [History Last Taken 07/30/20] potassium chloride 20 meq PO BID 07/24/19 [History Last Taken 07/31/20] metformin 500 mg tablet 250 mg PO QHS tab 10/01/19 [History Last Taken 07/30/20] metformin 500 mg tablet 500 mg PO BREAKFAST tab 10/01/19 [History Last Taken 07/31/20] metoprolol tartrate 25 mg tablet 25 mg PO BID #180 tab 12/15/20 [Rx Last Taken Unknown] azithromycin 250 mg tablet 250 mg PO QMWF #12 tab 03/23/21 [Rx Last Taken Unknown] prednisone 10 mg tablet 20 mg PO QDAY #200 tab 06/03/21 [Rx Last Taken Unknown] Allergy/AdvReac Type Severity Reaction Status Date / Time diazepam [From Valium] AdvReac Vomiting Verified 08/03/21 03:42 Family History Mother Diabetes Father Heart disease CVA (cerebral vascular accident) Brother Diabetes Asthma Surgical History Presence of stent in coronary artery (~07/2006) S/P rotator cuff repair Social History (Updated 08/03/21 @ 05:[address] Mahnaz Perez MD) household members: family and other details: Previously was homeless, now living with his daughter. Smoking Status: Former smoker Tobacco: How many years used: 40 how long ago did patient quit smokin, 2pk/day second hand exposure: Yes alcohol intake: never substance use type: does not use ROS ROS Narrative See HPI Physical Exam Const alert and oriented x3 Constitutional Narrative: Mild conversational dyspnea General Appearance: in distress Positive for mild, well hydrated and on BiPAP Nutritional Appearance: obese Eyes PERRL, EOMs intact bilaterally and conjunctivae normal Neck full ROM and No nuchal rigidity General: Negative for JVD Lymph Lymphatic: no lymphadenopathy noted Chest Chest Narrative: Increased AP diameter Resp normal respiratory effort and no use of accessory muscles Auscultation: diminished lung sounds; Negative for rales, rhonchi or wheezes Cardio S1 normal heart sound and S2 normal heart sound Rate: tachycardic Rhythm: regular rhythm Heart Sounds: Negative for gallop, murmur or rub GI normal to inspection, nondistended, normoactive bowel sounds Extremity normal to inspection and normal capillary refill General Extremity: clubbing; Negative for cyanosis or edema Skin Skin Narrative: Dermal atrophy Neuro CN's II-XII intact bilaterally and moves all extremities Psych mental status grossly normal, thought process normal and cooperative Lab / Micro Data Result Diagrams: 08/03/21 03:52 08/03/21 03:52 Labs: Laboratory Results - last 24 hr 08/03/21 03:52: WBC 19.4 H, RBC 4.98, Hgb 13.2, Hct 45.1, MCV 90.6, MCH 26.5 L, MCHC 29.3 L, RDW Std Deviation 47.4 H, RDW Coeff of Asael 14.3, Plt Count 428, MPV 9.0, Immature Gran % (Auto) 1.300 H, Neut % (Auto) 67.0, Lymph % (Auto) 21.0, [place] % (Auto) 8.8, Eos % (Auto) 1.4, Baso % (Auto) 0.5, Absolute Neuts (auto) 13.0 H, Absolute Lymphs (auto) 4.08, Nucleated RBC % 0, Diff Path Review February08/03/21 03:52: D-Dimer Quant (PE/DVT) <= 0.27 08/03/21 03:52: Sodium 139, Potassium 4.2, Chloride 98, Carbon Dioxide 38.0 H, Anion Gap 3 L, BUN 16, Creatinine 1.21, Estim Creat Clear Calc 70.37, Est GFR (MDRD) Af Amer 78, Est GFR (MDRD) Non-Af 65, BUN/Creatinine Ratio 13.2, Glucose 143 H, Calcium 9.1, Troponin I High Sens 7 08/03/21 06:31: POC Glucose 181 H Micro: Microbiology 08/03/21 03:52 Nasal Secretion SARS-CoV-2 Antigen (Rapid) - Final Radiology Impression Chest X-Ray 08/03/21 03:45 IMPRESSION: 1. Mild infiltrates or atelectasis in the lung bases. 2. Emphysema. Electronically Signed: Roland Gottlieb MD at 4:37 EDT Tel , Service support , Charges/Coding Visit Charges Inpatient E&M: 93375 Init Hosp L3
[2021-08-03] MEDS: Aspirin 81 MG TAB.CHEW PO (09:30)
[2021-08-03] MEDS: Azithromycin 250 MG Tablet PO (10:53)
[2021-08-03] MEDS: Furosemide 40 MG Tablet PO ×2 (10:53→16:49)
[2021-08-03] MEDS: Metoprolol Tartrate 25 MG Tablet PO ×2 (10:53→21:21)
[2021-08-03] MEDS: buPROPion 100 MG Tablet PO ×2 (10:54→21:21)
[2021-08-03] MEDS: Potassium Chloride Oral Tablet 20 MEQ PO ×2 (10:54→21:21)
[2021-08-03] MEDS: Famotidine 20 MG Tablet PO ×2 (10:54→21:21)
[2021-08-03] MEDS: Clopidogrel Bisulfate 75 MG Tablet PO (10:55)
[2021-08-03] MEDS: Enoxaparin 40 MG/0.4 ML Syringe SC (10:55)
[2021-08-03 11:25] LABS: Procalcitonin 0.09 ng/mL (0.00-0.09)
[2021-08-03 11:51] LABS: Bedside Glucose 184 mg/dL (70-110)
[2021-08-03 12:18] LABS: M R Staph aureus DNA By PCR Negative (Negative); Probe Check PASS; Specimen Processing Control PASS
[2021-08-03] MEDS: Losartan Potassium 25 MG Tablet PO (13:26)
[2021-08-03 13:40] LABS: Pathologist Review Reviewed
--- NOTE | 2021-08-03 13:50 | PCM.PN.HOSP ---
Subjective Subjective Follow-up on acute respiratory failure/acute COPD exacerbation: Patient was seen and examined. He feels much improved. He is usually on 4 L at baseline. Currently on 6 L. Objective Data Objective Data Vital Signs: Vital Signs Temp Pulse Resp BP Pulse Ox 98.5 F 85 18 111/76 96 08/03/21 11:52 08/03/21 11:52 08/03/21 11:52 08/03/21 11:52 08/03/21 11:52 Oxygen Flow Rate (L/min) 6 Oxygen Delivery Method Nasal Cannula Weight: 108.2 kg Body Mass Index (BMI) 33.3 Intake & Output: Intake and Output for Last 24 Hours 08/01/21 08/02/21 08/03/21 23:59 23:59 23:59 Intake Total 495 / 495 Balance 495 / 495 Lab / Micro Data Result Diagrams: 08/03/21 03:52 08/03/21 03:52 Labs: Laboratory Results - last 24 hr 08/03/21 03:52: WBC 19.4 H, RBC 4.98, Hgb 13.2, Hct 45.1, MCV 90.6, MCH 26.5 L, MCHC 29.3 L, RDW Std Deviation 47.4 H, RDW Coeff of Asael 14.3, Plt Count 428, MPV 9.0, Immature Gran % (Auto) 1.300 H, Neut % (Auto) 67.0, Lymph % (Auto) 21.0, [place] % (Auto) 8.8, Eos % (Auto) 1.4, Baso % (Auto) 0.5, Absolute Neuts (auto) 13.0 H, Absolute Lymphs (auto) 4.08, Nucleated RBC % 0, Diff Path Review Reviewed 08/03/21 03:52: D-Dimer Quant (PE/DVT) <= 0.27 08/03/21 03:52: Sodium 139, Potassium 4.2, Chloride 98, Carbon Dioxide 38.0 H, Anion Gap 3 L, BUN 16, Creatinine 1.21, Estim Creat Clear Calc 70.37, Est GFR (MDRD) Af Amer 78, Est GFR (MDRD) Non-Af 65, BUN/Creatinine Ratio 13.2, Glucose 143 H, Calcium 9.1, Troponin I High Sens 7 08/03/21 06:16: MRSA (PCR) Negative 08/03/21 06:31: POC Glucose 181 H 08/03/21 10:35: Procalcitonin 0.09 08/03/21 11:41: POC Glucose 184 H Micro: Microbiology 08/03/21 07:25 Mucosa - Nasopharyngeal Respiratory Panel (PCR) - Final Rhinovirus 08/03/21 03:52 Nasal Secretion SARS-CoV-2 Antigen (Rapid) - Final Radiography Diagnostic Testing: Radiology Impression Chest X-Ray 08/03/21 03:45 IMPRESSION: 1. Mild infiltrates or atelectasis in the lung bases. 2. Emphysema. Electronically Signed: Roland Gottlieb MD at 4:37 EDT Tel , Service support , Physical Exam Narrative Physical exam: General: Alert, oriented x3, cooperative, improved, on 6 L of oxygen HEENT: Atraumatic Oral: Moist Mucosa Neck: Supple Lungs: Clear to auscultation Cardiovascular: HS I+II, regular, no murmurs Abdomen: Bowel Sounds Present, Soft, Non Tender Extremities: No edema Assessment & Plan Assessment/Plan (1) Acute and chronic respiratory failure: QUALIFIERS: Respiratory failure complication: hypoxia and hypercapnia Qualified Code(s): J96.21 - Acute and chronic respiratory failure with hypoxia; J96.22 - Acute and chronic respiratory failure with hypercapnia (2) COPD exacerbation: PLAN: 1. Acute on chronic combined respiratory failure secondary to Acute COPD exacerbation secondary acute Rhinovirus infection Patient is on 6L; on 4L oxygen baseline On breathing treatments, IV solu-medrol, Will encourage use of incentive spirometer, wean off for Spo2>94% 2. Leukocytosis likely secondary to chronic steroids, will trend 3. Rest of chronic medical conditions include type II DM, CKD stage IIIb, anemia, CAD status post PCI, chronic diastolic CHF, encephalitis depression all remained stable Charges/Coding Visit Charges Inpatient E&M: 78037 Subs Hosp L2
--- NOTE | 2021-08-03 15:15 | CASEMGMT ---
ERIK GUTIERREZ assessment: Face to Face with patient for initial transition planning/care coordination assessment. ERIK GUTIERREZ introduced self and role at [facility], pt voices understanding and consents to assessment. Pt is sitting up on side of bed in no distress on 6L nc. Pt is A/Ox4 and answers all questions appropriately. Care providers, pharmacy, and demographics verified. Presentation: Pt c/o SOB, hx COPD Admitting dx: Acute resp failure on chronic COPD PCP: Tiff Specialists: Andrea, pulnestor; Stephy, cardio Preferred [facility]acy: [facility] Insurance: [employer] Prescription Benefit: [employer] Living Will/HPOA: Pt states does not have LW/HPOA and declines AD info. LNOK: Jessica Light, Living Arrangements: Pt states pt is currently living in daughter's home with , 2 daughters, and multiple grandchildren. Pt states him and his are in the basement and pt stays down there most of time. Pt is independent with ADL's. Transportation: Pt states drives self and states no transportation concerns. Pt states they have one car to share amongst themselves. DME/HHC: Pt states has a rollator, powerchair(missing power cord), nebulizer, trilogy, and 4L nc thru [employer]. Pt declines need for any further DME. Pt states no hx of HHC or SNF. Pt states no concerns with going home at time of discharge. Pt is on disability. Pt states quit smoking cigarettes and drinking ETOH about 4 years ago. Pt states no further concerns/needs. CM to follow for increased home oxygen need and any further discharge planning/needs. Advised pt to ask for CM if any further questions/concerns/needs arise, voices understanding. Pt Goal: Home Plan: [place] ERIK GUTIERREZ
--- NOTE | 2021-08-03 15:46 | NURSING ---
This RN reviewed all SN charting and was with SN during all medication administration
[2021-08-03] MEDS: Ferrous Sulfate 325 MG Tablet PO (16:49)
[2021-08-03 16:56] LABS: Bedside Glucose 188 mg/dL (70-110)
[2021-08-03] MEDS: Atorvastatin Calcium 40 MG Tablet PO (21:21)
[2021-08-03 22:26] LABS: Bedside Glucose 195 mg/dL (70-110)
[2021-08-04] VITALS (19 sets, daily range): BP systolic 103–130; BP diastolic 66–80; PULSE 69–103; RESP 12–20; TEMP 36.5–36.7; O2SAT 92–97
[2021-08-04] MEDS: Insulin Lispro 100 UNIT/ML INSULN.PEN SC ×4 (06:34→21:19)
[2021-08-04 06:41] LABS: Bedside Glucose 159 mg/dL (70-110)
[2021-08-04] MEDS: Ipratropium/Albuterol Sulfate 3 ML AMPUL.NEB INHALATION ×4 (06:57→19:14)
[2021-08-04 07:26] LABS: Absolute Lymphocyte Count 1.52 X10^3/uL (0.83-4.51); Absolute Neutrophil Count 16.1 X10^3/uL (2.0-7.7); Basophil# 0.03 X10^3/uL; Basophil% 0.2 % (0-1); Eosinophil# 0.01 X10^3/uL; Eosinophils% 0.1 % (0-5); Hematocrit 41.9 % (40-54); Hemoglobin 12.3 g/dL (13.0-16.5); Lymphocyte # 1.52 X10^3/ul (0.83-4.51); Lymphocyte % 7.8 % (19-41); Mean Corp Hgb Conc 29.4 g/dL (32-36); Mean Corpuscular Hgb 25.9 pg (27.0-32.0); Mean Corpuscular Volume 88.4 fL (80-94); Mean Platelet Vol. 9.4 fl (6.2-12.0); Monocyte# 1.48 X10^3/uL; Monocyte% 7.6 % (0-10); NRBC Flagged by Analyzer 0 % (0-5); Neutrophil # 16.14 X10^3/uL (2.7-7.7); Neutrophil % 83.2 % (47-70); Platelet Count 389 K/mm3 (150-450); RBC Distribution Width CV 13.8 % (11.6-14.6); RBC Distribution Width SD 44.5 fl (35.1-43.9); Red Blood Count 4.74 M/mm3 (4.6-6.2); White Blood Count 19.4 K/mm3 (4.4-11.0)
[2021-08-04 08:13] LABS: ALB/GLOB Ratio 0.8 RATIO (0.9-2.4); AST(SGOT) 13 U/L (15-37); Alanine Aminotransfer ALT/SGPT 20 U/L (16-61); Albumin, Serum 3.1 g/dL (3.2-5.0); Alkaline Phosphatase 116 U/L (45-117); Anion Gap 5 (5-15); BUN 22 mg/dL (7-18); BUN/Creat Ratio 21.8 RATIO (10-20); Calcium,Total 9.2 mg/dL (8.5-10.1); Chloride 97 mmol/L (98-107); Creatinine, Serum 1.01 mg/dL (0.70-1.30); EST Glomerular Filtration Rate 80 mL/min (>60); Est Glom Filt Rate - Afr Amer 96 mL/min (>60); Globulin 3.9 g/dL (2.2-4.2); Glucose 150 mg/dL (74-106); Potassium 4.2 mmol/L (3.5-5.1); Sodium Level 138 mmol/L (136-145)
[2021-08-04] MEDS: Clopidogrel Bisulfate 75 MG Tablet PO (09:23)
[2021-08-04] MEDS: Enoxaparin 40 MG/0.4 ML Syringe SC (09:23)
[2021-08-04] MEDS: Furosemide 40 MG Tablet PO ×2 (09:23→17:02)
[2021-08-04] MEDS: Aspirin 81 MG TAB.CHEW PO (09:23)
[2021-08-04] MEDS: Potassium Chloride Oral Tablet 20 MEQ PO ×2 (09:26→21:21)
[2021-08-04] MEDS: Famotidine 20 MG Tablet PO ×2 (09:26→21:21)
[2021-08-04] MEDS: buPROPion 100 MG Tablet PO ×2 (09:26→21:29)
--- NOTE | 2021-08-04 10:10 | PN.CC_ITS ---
Assessment & Plan Assessment/Plan (1) Acute and chronic respiratory failure: QUALIFIERS: Respiratory failure complication: hypoxia and hypercapnia Qualified Code(s): J96.21 - Acute and chronic respiratory failure with hypoxia; J96.22 - Acute and chronic respiratory failure with hypercapnia (2) COPD exacerbation: (3) Congestive heart failure: QUALIFIERS: Heart failure type: systolic Heart failure chronicity: chronic Qualified Code(s): I50.22 - Chronic systolic (congestive) heart failure (4) MICHELLE (obstructive sleep apnea): (5) Acute on chronic respiratory failure with hypoxia and hypercapnia: PLAN: RECOMMENDATIONS: 1. Okay to continue Solu-Medrol, bronchodilators. 2. Continue suppressive azithromycin. No additional antibiotics indicated 3. Continue diuretic therapy as tolerated by hemodynamics and renal function. 4. Continue AVAPS with sleep. Okay to use nasal cannula during the day 5. Encourage incentive spirometer use and mobilize patient as tolerated. 6. We will keep steroids at the current dosing with hopes of discharge in the next 24 to 48 hours IMPRESSIONS: 1. Acute on chronic combined respiratory failure secondary to COPD exacerbation secondary to rhinovirus The patient has known end-stage COPD and chronic respiratory failure with a 4 L/min baseline requirement. Patient with significant social issues complicating his pulmonary management. Patient does have a recent sick contact with a school-aged child. Patient has tested positive for rhinovirus. This is likely the etiology of COPD exacerbation. Patient is on suppressive azithromycin given chronic steroids. This can be continued. We will keep steroids at the current dosing in the hopes that patient can be discharged in next 24 to 48 hours on a p.o. steroid taper. Increase activity as tolerated. 2. History of coronary artery disease status post PTCA/anxiety/hyperlipidemia/hypertension Complicates care, management, recovery and prognosis. Continue home medications as indicated. This note was generated with [employer] dictation software. It may contain incorrect words, spelling, and punctuation that were not noted in checking the note before signing. Subjective Subjective Patient did well overnight. Patient was on BiPAP throughout the evening, but is been able to come to his nasal cannula this morning. Patient states he feels improved at rest, but still has significant dyspnea on exertion. No nausea or vomiting is been reported. Objective Data Objective Data Vital Signs: Vital Signs Temp Pulse Resp BP Pulse Ox 36.5 C L 89 18 103/66 97 10/26/21 09:20 08/04/21 09:30 08/04/21 09:20 08/04/21 09:30 08/04/21 09:20 Oxygen Flow Rate (L/min) 3 Oxygen Delivery Method Nasal Cannula Weight: 107.6 kg Body Mass Index (BMI) 33.3 Intake & Output: Intake and Output for Last 24 Hours 08/02/21 08/03/21 08/04/21 23:59 23:59 23:59 Intake Total 855 / 855 0 / 0 Output Total 750 / 750 700 / 700 Balance 105 / 105 -700 / -700 Lab / Micro Data Result Diagrams: 08/04/21 06:12 08/04/21 06:12 Labs: Laboratory Results - last 24 hr 08/03/21 03:52: Diff Path Review Reviewed 08/03/21 06:16: MRSA (PCR) Negative 08/03/21 10:35: Procalcitonin 0.09 08/03/21 11:41: POC Glucose 184 H 08/03/21 16:42: POC Glucose 188 H 08/03/21 21:29: POC Glucose 195 H 08/04/21 06:12: WBC 19.4 H, RBC 4.74, Hgb 12.3 L, Hct 41.9, MCV 88.4, MCH 25.9 L , MCHC 29.4 L, RDW Std Deviation 44.5 H, RDW Coeff of Asael 13.8, Plt Count 389, MPV 9.4, Immature Gran % (Auto) 1.100 H, Neut % (Auto) 83.2 H, Lymph % (Auto) 7.8 L, [place] % (Auto) 7.6, Eos % (Auto) 0.1, Baso % (Auto) 0.2, Absolute Neuts (auto) 16.1 H, Absolute Lymphs (auto) 1.52, Nucleated RBC % 0 08/04/21 06:12: Sodium 138, Potassium 4.2, Chloride 97 L, Carbon Dioxide 36.0 H, Anion Gap 5, BUN 22 H, Creatinine 1.01, Estim Creat Clear Calc 81.80, Est GFR (MDRD) Af Amer 96, Est GFR (MDRD) Non-Af 80, BUN/Creatinine Ratio 21.8 H, Glucose 150 H, Calcium 9.2, Total Bilirubin 0.30, AST 13 L, ALT 20, Alkaline Phosphatase 116, Total Protein 7.0, Albumin 3.1 L, Globulin 3.9, Albumin/Globulin Ratio 0.8 L 08/04/21 06:33: POC Glucose 159 H Micro: Microbiology 08/03/21 07:25 Mucosa - Nasopharyngeal Respiratory Panel (PCR) - Final Rhinovirus 08/03/21 03:52 Nasal Secretion SARS-CoV-2 Antigen (Rapid) - Final Physical Exam Const alert, oriented x3 and no apparent distress Constitutional Narrative: Mild conversational dyspnea General Appearance: well hydrated; Negative for on BiPAP Nutritional Appearance: obese Eyes PERRL, EOMs intact bilaterally and conjunctivae normal Neck full ROM and No nuchal rigidity General: Negative for JVD Lymph Lymphatic: no lymphadenopathy noted Chest Chest Narrative: Increased AP diameter Resp normal respiratory effort and no use of accessory muscles Auscultation: diminished lung sounds; Negative for rales, rhonchi or wheezes Cardio S1 normal heart sound and S2 normal heart sound Rate: tachycardic Rhythm: regular rhythm Heart Sounds: Negative for gallop, murmur or rub GI normal to inspection, nondistended, normoactive bowel sounds Extremity normal to inspection and normal capillary refill General Extremity: clubbing; Negative for cyanosis or edema Skin Skin Narrative: Dermal atrophy Neuro CN's II-XII intact bilaterally and moves all extremities Psych mental status grossly normal, thought process normal and cooperative Charges/Coding Visit Charges Inpatient E&M: 20948 Subs Hosp L2
[2021-08-04 11:50] LABS: Bedside Glucose 207 mg/dL (70-110)
--- NOTE | 2021-08-04 12:05 | CASEMGMT ---
Pt qualifies for palliative referral per palliative screening tool and Dr. Haddad is agreeable. Referral faxed and order placed. Miguel VALENCIA CM
[2021-08-04] MEDS: Losartan Potassium 25 MG Tablet PO (13:31)
--- NOTE | 2021-08-04 15:28 | PN.HOSP_ITS ---
Subjective Subjective Follow-up on acute respiratory failure/acute COPD exacerbation: Patient was seen and examined. He feels much improved. Patient was extremely short of breath with minimal ambulation. Objective Data Objective Data Vital Signs: Vital Signs Temp Pulse Resp BP Pulse Ox 97.7 F L 99 18 122/80 H 95 08/04/21 13:30 08/04/21 15:00 08/04/21 13:30 08/04/21 13:30 08/04/21 13:30 Oxygen Flow Rate (L/min) [ 4 AMBULATING with Oxygen #1] Oxygen Flow Rate (L/min) [At 4 REST with Oxygen] Oxygen Flow Rate (L/min) 4 Oxygen Delivery Method Nasal Cannula Weight: 107.6 kg Body Mass Index (BMI) 33.3 Intake & Output: Intake and Output for Last 24 Hours 08/02/21 08/03/21 08/04/21 23:59 23:59 23:59 Intake Total 855 / 855 360 / 360 Output Total 750 / 750 1100 / 1100 Balance 105 / 105 -740 / -740 Lab / Micro Data Result Diagrams: 08/04/21 06:12 08/04/21 06:12 Labs: Laboratory Results - last 24 hr 08/03/21 16:42: POC Glucose 188 H 08/03/21 21:29: POC Glucose 195 H 08/04/21 06:12: WBC 19.4 H, RBC 4.74, Hgb 12.3 L, Hct 41.9, MCV 88.4, MCH 25.9 L , MCHC 29.4 L, RDW Std Deviation 44.5 H, RDW Coeff of Asael 13.8, Plt Count 389, MPV 9.4, Immature Gran % (Auto) 1.100 H, Neut % (Auto) 83.2 H, Lymph % (Auto) 7.8 L, [place] % (Auto) 7.6, Eos % (Auto) 0.1, Baso % (Auto) 0.2, Absolute Neuts (auto) 16.1 H, Absolute Lymphs (auto) 1.52, Nucleated RBC % 0 08/04/21 06:12: Sodium 138, Potassium 4.2, Chloride 97 L, Carbon Dioxide 36.0 H, Anion Gap 5, BUN 22 H, Creatinine 1.01, Estim Creat Clear Calc 81.80, Est GFR (MDRD) Af Amer 96, Est GFR (MDRD) Non-Af 80, BUN/Creatinine Ratio 21.8 H, Glucose 150 H, Calcium 9.2, Total Bilirubin 0.30, AST 13 L, ALT 20, Alkaline Phosphatase 116, Total Protein 7.0, Albumin 3.1 L, Globulin 3.9, Albumin/Globulin Ratio 0.8 L 08/04/21 06:33: POC Glucose 159 H 08/04/21 11:43: POC Glucose 207 H Micro: Microbiology 08/03/21 07:25 Mucosa - Nasopharyngeal Respiratory Panel (PCR) - Final Rhinovirus 08/03/21 03:52 Nasal Secretion SARS-CoV-2 Antigen (Rapid) - Final Physical Exam Narrative Physical exam: General: Alert, oriented x3, cooperative, improved, on 4 L of oxygen HEENT: Atraumatic Oral: Moist Mucosa Neck: Supple Lungs: Diminished to auscultation, wheezes +, scattered Cardiovascular: HS I+II, regular, no murmurs Abdomen: Bowel Sounds Present, Soft, Non Tender Extremities: No edema Assessment & Plan Assessment/Plan (1) Acute and chronic respiratory failure: QUALIFIERS: Respiratory failure complication: hypoxia and hypercapnia Qualified Code(s): J96.21 - Acute and chronic respiratory failure with hypoxia; J96.22 - Acute and chronic respiratory failure with hypercapnia (2) COPD exacerbation: PLAN: 1. Acute on chronic combined respiratory failure secondary to Acute COPD exacerbation secondary acute Rhinovirus infection Slowly improving, currently on 4 L of oxygen but easily desaturates Continue on breathing treatments, IV solu-medrol, Will encourage use of incentive spirometer, wean off for Spo2>94% 2. Leukocytosis likely secondary to chronic steroids, persistent 3. Rest of chronic medical conditions include type II DM, CKD stage IIIb, anemia, CAD status post PCI, chronic diastolic CHF, encephalitis depression all remained stable Charges/Coding Visit Charges Inpatient E&M: 58215 Subs Hosp L2
--- NOTE | 2021-08-04 16:55 | CHAPLAIN ---
Type of Pastoral Visit _x__ Initial Visit ___ Follow-up Visit ___ On-call Visit ___ General Patient Visit ___ Spiritual Assessment ___ Family Conference ___ Bereavement ___ Rapid Response ___ Code Blue ___ Other (describe below) Pastoral Care Referral From _x__ Patient ___ Family ___ Nurse ___ Physician ___ Plant Maintenance Engineer ___ Volleyball Coach ___ Other (describe below) Sacrament/Intervention _x__ Active listening ___ Anointing ___ Baptist ___ Bereavement ___ Communion ___ Demetra exploration ___ _x__ Life review _x__ Prayer ___ Reconciliation ___ Sacrament of Sick ___ Supportive presence ___ Wedding ___ Other (describe below) Pastoral Comments patient welcomes presence but also gives a gruff response to questions and to the phone call he received from family member; pt receives help from family but also indicates the stress from living with family; pt accepting of prayer; RN came to assist pt at this time
[2021-08-04] MEDS: Ferrous Sulfate 325 MG Tablet PO (17:02)
[2021-08-04 17:25] LABS: Bedside Glucose 200 mg/dL (70-110)
[2021-08-04] MEDS: Metoprolol Tartrate 25 MG Tablet PO (21:20)
[2021-08-04] MEDS: Atorvastatin Calcium 40 MG Tablet PO (21:21)
[2021-08-04 21:25] LABS: Bedside Glucose 183 mg/dL (70-110)
[2021-08-04] MEDS: 0.9% Saline Lock 10 ML Syringe IV (21:25)
[2021-08-05] VITALS (12 sets, daily range): BP systolic 115; BP diastolic 71–82; PULSE 66–99; RESP 12–20; TEMP 36.5–36.7; O2SAT 94–97
[2021-08-05] MEDS: Ipratropium/Albuterol Sulfate 3 ML AMPUL.NEB INHALATION ×2 (06:34→10:37)
[2021-08-05] MEDS: 0.9% Saline Lock 10 ML Syringe IV (06:34)
[2021-08-05 06:46] LABS: Bedside Glucose 142 mg/dL (70-110)
[2021-08-05 07:27] LABS: Anion Gap 5 (5-15); BUN 24 mg/dL (7-18); BUN/Creat Ratio 22.9 RATIO (10-20); Calcium,Total 9.2 mg/dL (8.5-10.1); Chloride 99 mmol/L (98-107); Creatinine, Serum 1.05 mg/dL (0.70-1.30); EST Glomerular Filtration Rate 76 mL/min (>60); Est Glom Filt Rate - Afr Amer 92 mL/min (>60); Estimated Creatinine Clearance 78.69 ml/min; Glucose 147 mg/dL (74-106); Potassium 4.3 mmol/L (3.5-5.1); Sodium Level 138 mmol/L (136-145)
--- NOTE | 2021-08-05 08:50 | CON.PCM.PA_ITS ---
Assessment & Plan Assessment/Plan (1) Acute and chronic respiratory failure: QUALIFIERS: Respiratory failure complication: hypoxia and hypercapnia Qualified Code(s): J96.21 - Acute and chronic respiratory failure with hypoxia; J96.22 - Acute and chronic respiratory failure with hypercapnia (2) COPD exacerbation: (3) COVID-19: (4) Stage 4 very severe COPD by GOLD classification: (5) Type 2 diabetes mellitus: QUALIFIERS: Diabetes mellitus complication detail: with other circulatory complications Diabetes mellitus complication status: with circulatory complication Diabetes mellitus shelter insulin use: without shelter use Qualified Code(s): E11.59 - Type 2 diabetes mellitus with other circulatory complications (6) Congestive heart failure: QUALIFIERS: Heart failure chronicity: chronic Heart failure type: systolic Qualified Code(s): I50.22 - Chronic systolic (congestive) heart failure (7) Rhinovirus: PLAN: TIARA JACOB, is a 60 M who was referred to [facility] for a few recent [facility] admissions for respiratory failure and COPD exacerbation. He is unsure about Palliative but agrees to have Liaison call at discharge. Plan for Palliative would be as follows: 1) Acute on chronic COPD exacerbation secondary to rhinovirus: Continue Prednisone weaning to 20mg per day as recommended by Pulmonary. Continue Azithromycin and bronchodilators. Continue O2 at 4 liters. PAP and activity as tolerated. Palliative would be willing to follow to monitor symptoms and compliance with above regimen. Also encourage low sodium diet. Plan will be difficult to avoid additional exposures with grandchildren living with patient. Palliative can monitor for any role anxiety has in dyspnea. Can also encourage diet recommendations to assist with weight loss. 2)DM2/ CAD/ hx of Covid-19/ Hyperlipidemia/ CHF: Complicates overall care, management, recovery and prognosis. Defer to PCP and specialists. Palliative willing to encourage compliance with visits. Thank you for the opportunity to participate in this patient's care, please do not hesitate to contact [facility] with any further questions or concerns. Palliative direct line is [phone]. Greater than 50% of F2F visit dedicated to education and counseling of palliative care services, medications, comorbid conditions and potential assistance with management, and plan of care moving forward. Liaison to reach out to patient at discharge. Start time: 0820 End time: 0900 HPI Consult Data Date of Consult: 08/05/21 HPI Narrative HPI Narrative: TIARA LIGHT, is a 60 M who was referred to [facility] for a few recent [facility] admissions for respiratory failure and COPD exacerbation. He was also hospitalized in April and December 2020 for the same.He presented to the ER on 08/03 with worsening shortness of breath arrived on CPAP,transitioned to Bipap and improvement was noted. Chest X-ray showed atelectasis in the bilateral bases. Was given a dose of Zithromax with white count of 19.4. D-dimer and troponin are both negative. He was started on breathing treatments, IV Solumedrol and encouraged use of incentive spirometer. Continued Zithromax and diuretics. Negative for Covid-19, Positive for rhinovirus. EKG showed sinus tach ycardia with Premature supraventricular complexes and with occasional Premature ventricular complexes, otherwise WNL. PCP: Tiff, Specialists: Andrea pulnestor; Stephy cardio,Preferred Pharmacy: [facility], Does not have a Living will/HCPOA. Pt states pt is currently living in daughter's home with , 2 daughters, and multiple grandchildren. Pt states him and his are in the basement and pt stays down there most of time. Pt is independent with ADL's. Pt states drives self and states no transportation concerns. Pt states they have one car to share amongst themselves. Pt states has a rollator, powerchair(missing power cord), nebulizer, trilogy, and 4L nc thru [employer]. No hx of HHC or SNF. Pt is on disability. Pt states quit smoking cigarettes and drinking ETOH about 4 years ago. Plan is to discharge back to home Seen today in [facility] room. Sitting up with O2 per nasal cannula in place at 4 liters at 95%. Appears comfortable. No dyspnea or pursed lip breathing noted. Expressed frustration with respiratory status and multiple medications that he takes. Reports that cat chewed through his O2 tubing and is what precipitated his hospital admission. Expressed goals of maintaining quality of life as long as possible. Denies any further complaints other than dyspnea with exertion and fatigue associated [facility] Medical History Acute exacerbation of chronic obstructive pulmonary disease Acute on chronic respiratory failure with hypoxia and hypercapnia Anxiety Congestive heart failure Coronary artery disease Essential hypertension Hyperlipidemia MICHELLE (obstructive sleep apnea) Stage 4 very severe COPD by GOLD classification Tobacco abuse Type 2 diabetes mellitus Home Medications aspirin 81 mg PO DAILY@0800 10/04/14 [History Last Taken 07/31/20] atorvastatin 40 mg PO QHS 10/04/14 [History Last Taken 07/30/20] clopidogrel 75 mg PO DAILY 10/04/14 [History Last Taken 07/30/20] furosemide 40 mg PO BID 10/04/14 [History Last Taken 07/30/20] multivitamin with folic acid 1 tab PO DAILY 10/04/14 [History Last Taken 07/30/20] budesonide-formoterol 2 puff INHALATION BID 02/24/15 [History Last Taken 10/13/18 22:00 2 puff] roflumilast 500 mcg PO DAILY 02/24/15 [History Last Taken 10/13/18 08:00 500 mg] famotidine 20 mg PO BID 08/01/15 [History Last Taken 07/31/20] bupropion HCl 100 mg tablet 100 mg PO BID 10/25/17 [History Last Taken 07/30/20] albuterol sulfate 2.5 mg INHALATION Q2H PRN PRN #1 box 11/08/17 [Rx Last Taken 10/13/18 22:00 1 tx] albuterol sulfate 90 mcg/actuation aerosol inhaler 2 puff INHALATION Q2H PRN g 11/11/17 [History Last Taken 10/14/18 06:30 2 puffs] tiotropium bromide 18 mcg capsule with inhalation device 1 cap INHALATION DAILY 11/11/17 [History Last Taken 10/13/18 14:00 1 cap] cholecalciferol (vitamin D3) 1,000 unit PO DAILY tab 02/13/18 [Rx Last Taken 07/31/20] ipratropium bromide 0.02 % solution for inhalation 0.5 mg INHALATION Q4H ml 05/01/18 [History Last Taken 10/13/18 22:00 1 tx] losartan 25 mg tablet 25 mg PO 1400 09/14/18 [History Last Taken 07/30/20] budesonide 0.5 mg INHALATION BID 10/14/18 [History Last Taken 10/13/18 18:00 1 tx] Oxygen, Home [Home Oxygen] 4 - 6 lpm NASAL CONT 07/24/19 [History Last Taken Unknown] ferrous sulfate 325 mg PO DINNER 07/24/19 [History Last Taken 07/30/20] potassium chloride 20 meq PO BID 07/24/19 [History Last Taken 07/31/20] metformin 500 mg tablet 250 mg PO QHS tab 10/01/19 [History Last Taken 07/30/20] metformin 500 mg tablet 500 mg PO BREAKFAST tab 10/01/19 [History Last Taken 07/31/20] metoprolol tartrate 25 mg tablet 25 mg PO BID #180 tab 12/15/20 [Rx Last Taken Unknown] azithromycin 250 mg tablet 250 mg PO QMWF #12 tab 03/23/21 [Rx Last Taken Unknown] prednisone 10 mg tablet 20 mg PO QDAY #200 tab 06/03/21 [Rx Last Taken Unknown] Allergy/AdvReac Type Severity Reaction Status Date / Time diazepam [From Valium] AdvReac Vomiting Verified 08/03/21 03:42 Family History Mother Diabetes Father Heart disease CVA (cerebral vascular accident) Brother Diabetes Asthma Surgical History Presence of stent in coronary artery (~07/2006) S/P rotator cuff repair Social History household members: family and other details: Previously was homeless, now living with his daughter. Smoking Status: Former smoker Tobacco: How many years used: 40 how long ago did patient quit smokin, 2pk/day second hand exposure: Yes alcohol intake: never substance use type: does not use ROS Constitutional Constitutional: Reports systems reviewed and no addt'l complaints, except as documented Eyes Eyes: Reports none ENT HEENT: Reports none Cardiovascular Cardiovascular: Reports dyspnea on exertion and easily tiring during activity; Denies cold extremities, cyanosis or leg edema Respiratory/Chest Respiratory/Chest: Reports dyspnea on exertion; Denies chest tightness, inability to speak or nail bed cyanosis Gastrointestinal Gastrointestinal: Reports none Genitourinary Genitourinary: Reports none Musculoskeletal Musculoskeletal: Denies back pain, difficulty walking, extremity pain or joint pain Integumentary Integumentary: Reports none Neurologic Neurologic: Denies abnormal speech, confusion or dizziness Psychiatric Psychiatric: Denies anxiety or depression Physical Exam Const alert, oriented x3 and no apparent distress General Appearance: cooperative Nutritional Appearance: obese HEENT normocephalic Head and Scalp: normal to inspection, normocephalic and atraumatic Mouth: oral and palatal mucosa normal Teeth and Gingiva: fair dentition Eyes General Eye: normal appearance of both eyes and other Other Details: wears glasses Neck full ROM and supple Chest inspection of chest normal Resp normal respiratory effort and No no retractions Effort and Inspection: able to speak in complete sentences and symmetric chest movement Auscultation: diminished lung sounds bilateral; Negative for rhonchi or wheezes Cardio regular rate, regular rhythm, S1 normal heart sound and S2 normal heart sound Rate: tachycardic Peripheral Pulses: pulses 2+ throughout GI normal to inspection, nondistended, normoactive bowel sounds, soft to palpation and non-tender Extremity no clubbing, cyanosis or edema Skin no rashes or lesions noted Neuro oriented x3 and CN's II-XII intact bilaterally Psych Attitude: calm and engaged Activity / Motor Behavior: appropriate eye contact Speech: normal speech Thought Process: normal thought process
--- NOTE | 2021-08-05 09:39 | PN.CC_ITS ---
Assessment & Plan Assessment/Plan (1) Acute and chronic respiratory failure: QUALIFIERS: Respiratory failure complication: hypoxia and hypercapnia Qualified Code(s): J96.21 - Acute and chronic respiratory failure with hypoxia; J96.22 - Acute and chronic respiratory failure with hypercapnia (2) COPD exacerbation: (3) Congestive heart failure: QUALIFIERS: Heart failure type: systolic Heart failure chronicity: chronic Qualified Code(s): I50.22 - Chronic systolic (congestive) heart failure (4) MICHELLE (obstructive sleep apnea): (5) Acute on chronic respiratory failure with hypoxia and hypercapnia: PLAN: RECOMMENDATIONS: 1. Okay to transition to prednisone, bronchodilators. 2. Continue suppressive azithromycin. No additional antibiotics indicated 3. Continue diuretic therapy as tolerated by hemodynamics and renal function. 4. Continue AVAPS with sleep. Okay to use nasal cannula during the day 5. Encourage incentive spirometer use and mobilize patient as tolerated. 6. Obtain walking oximetry. Okay to discharge if tolerates 6 L or less IMPRESSIONS: 1. Acute on chronic combined respiratory failure secondary to COPD exa cerbation secondary to rhinovirus The patient has known end-stage COPD and chronic respiratory failure with a 4 L/min baseline requirement. Patient with significant social issues compli cating his pulmonary management. Patient does have a recent sick contact with a school-aged child. Patient has tested positive for rhinovirus. This is likely the etiology of COPD exacerbation. Patient is on suppressive azithromycin given chronic steroids. This can be continued. Okay to transition to p.o. steroids. Patient should be weaned to his baseline of 20 mg/day. Increase activity as tolerated. 2. History of coronary artery disease status post PTCA/anxiety/hyperlipi demia/hypertension Complicates care, management, recovery and prognosis. Continue home medications as indicated. This note was generated with [employer] dictation software. It may contain incorrect words, spelling, and punctuation that were not noted in checking the note before signing. Subjective Subjective Patient did okay overnight. No acute issues were reported. Patient overall feels subjectively slightly improved. Patient has had less coughing. Objective Data Objective Data Vital Signs: Vital Signs Temp Pulse Resp BP Pulse Ox 36.7 C 74 20 H 115/82 H 97 08/05/21 03:01 08/05/21 07:00 08/05/21 06:36 08/05/21 03:01 08/05/21 06:36 Oxygen Flow Rate (L/min) [ 4 AMBULATING with Oxygen #1] Oxygen Flow Rate (L/min) [At 4 REST with Oxygen] Oxygen Flow Rate (L/min) 4 Oxygen Delivery Method Nasal Cannula Weight: 107.5 kg Body Mass Index (BMI) 33.3 Intake & Output: Intake and Output for Last 24 Hours 08/03/21 08/04/21 08/05/21 23:59 23:59 23:59 Intake Total 855 / 855 1320 / 1320 450 / 450 Output Total 750 / 750 2250 / 2250 1400 / 1400 Balance 105 / 105 -930 / -930 -950 / -950 Lab / Micro Data Result Diagrams: 08/04/21 06:12 08/05/21 05:50 Labs: Laboratory Results - last 24 hr 08/04/21 11:43: POC Glucose 207 H 08/04/21 17:00: POC Glucose 200 H 08/04/21 21:18: POC Glucose 183 H 08/05/21 05:50: Sodium 138, Potassium 4.3, Chloride 99, Carbon Dioxide 34.0 H, Anion Gap 5, BUN 24 H, Creatinine 1.05, Estim Creat Clear Calc 78.69, Est GFR (MDRD) Af Amer 92, Est GFR (MDRD) Non-Af 76, BUN/Creatinine Ratio 22.9 H, Glucose 147 H, Calcium 9.2 08/05/21 06:35: POC Glucose 142 H Micro: Microbiology 08/03/21 07:25 Mucosa - Nasopharyngeal Respiratory Panel (PCR) - Final Rhinovirus 08/03/21 03:52 Nasal Secretion SARS-CoV-2 Antigen (Rapid) - Final Physical Exam Const alert, oriented x3 and no apparent distress Constitutional Narrative: Mild conversational dyspnea General Appearance: well hydrated; Negative for on BiPAP Nutritional Appearance: obese Eyes PERRL, EOMs intact bilaterally and conjunctivae normal Neck full ROM and No nuchal rigidity General: Negative for JVD Lymph Lymphatic: no lymphadenopathy noted Chest Chest Narrative: Increased AP diameter Resp normal respiratory effort and no use of accessory muscles Resp Narrative: Better air exchange compared to yesterday Auscultation: diminished lung sounds; Negative for rales, rhonchi or wheezes Cardio S1 normal heart sound and S2 normal heart sound Rate: tachycardic Rhythm: regular rhythm Heart Sounds: Negative for gallop, murmur or rub GI normal to inspection, nondistended, normoactive bowel sounds Extremity normal to inspection and normal capillary refill General Extremity: clubbing; Negative for cyanosis or edema Skin Skin Narrative: Dermal atrophy Neuro CN's II-XII intact bilaterally and moves all extremities Psych mental status grossly normal, thought process normal and cooperative Charges/Coding Visit Charges Inpatient E&M: 39614 Subs Hosp L2
[2021-08-05] MEDS: Metoprolol Tartrate 25 MG Tablet PO (10:00)
[2021-08-05] MEDS: Aspirin 81 MG TAB.CHEW PO (10:00)
[2021-08-05] MEDS: Furosemide 40 MG Tablet PO (10:00)
[2021-08-05] MEDS: Enoxaparin 40 MG/0.4 ML Syringe SC (10:01)
[2021-08-05] MEDS: Azithromycin 250 MG Tablet PO (10:01)
[2021-08-05] MEDS: Clopidogrel Bisulfate 75 MG Tablet PO (10:01)
[2021-08-05] MEDS: Potassium Chloride Oral Tablet 20 MEQ PO (10:03)
[2021-08-05] MEDS: buPROPion 100 MG Tablet PO (10:03)
[2021-08-05] MEDS: Famotidine 20 MG Tablet PO (10:03)
--- NOTE | 2021-08-05 10:42 | PCM.DC ---
Discharge Instructions Diet Discharge Diet: Low fat / Low cholesterol, 2000 Calorie Control Diet and 2000 mg Sodium Diet Activity Discharge Activity: Return to Normal Activity Follow Up Care Test Results: Test results from this visit will be discussed in further detail at your follow-up appointment, if applicable. Discharge Plan Admission Admit Date/Time: 08/03/21 04:49 Primary Reason for Your Visit: Acute on chronic respiratory failure/Acute COPD exacerbation Attending Provider: Madeleine Haddad Primary Care Provider: Kenia Matthew Consulting Providers: Zac Mendez Instructions Additional Instructions / Restrictions: Continue to use your oxygen all the time. Complete your steroids. Discharge Orders/Prescriptions Prescriptions: New prednisone 10 mg tablet See Taper mg PO DAILY Qty: 30 RF: 0 Continued bupropion HCl 100 mg tablet 100 mg PO BID RF: 0 albuterol sulfate [Ventolin HFA] 90 mcg/actuation HFA aerosol inhaler 2 puff INHALATION Q2H PRN (Reason: shortness of breath or wheezing) RF: 0 tiotropium bromide [Spiriva with HandiHaler] 18 mcg capsule, w/inhalation device 1 cap INHALATION DAILY RF: 0 ipratropium bromide 0.02 % solution 0.5 mg INHALATION Q4H RF: 0 losartan 25 mg tablet 25 mg PO 1400 RF: 0 furosemide 40 MG tablet 40 mg PO BID RF: 0 atorvastatin 40 MG tablet 40 mg PO QHS RF: 0 clopidogrel 75 MG tablet 75 mg PO DAILY RF: 0 aspirin 81 MG tablet,chewable 81 mg PO DAILY@0800 RF: 0 multivitamin with folic acid 1 TABLET tablet 1 tab PO DAILY RF: 0 budesonide-formoterol 1 INHALER inhaler 2 puff INHALATION BID RF: 0 roflumilast 500 MCG tablet 500 mcg PO DAILY RF: 0 famotidine 20 MG tablet 20 mg PO BID RF: 0 metformin 500 mg tablet 500 mg PO BREAKFAST RF: 0 metformin 500 mg tablet 250 mg PO QHS RF: 0 albuterol sulfate 2.5 MG/3 ML solution for nebulization 2.5 mg INHALATION Q2H PRN PRN (Reason: dyspnea, wheezing) Qty: 1 RF: 0 cholecalciferol (vitamin D3) 1,000 UNIT tablet 1,000 unit PO DAILY RF: 0 budesonide 0.5 MG/2 ML suspension for nebulization 0.5 mg INHALATION BID RF: 0 potassium chloride 20 MEQ tablet,ER particles/crystals 20 meq PO BID RF: 0 ferrous sulfate 325 MG tablet 325 mg PO DINNER RF: 0 Oxygen, Home [Home Oxygen] 4 - 6 lpm NASAL CONT RF: 0 metoprolol tartrate 25 mg tablet 25 mg PO BID Qty: 180 RF: 3 Discontinued prednisone 10 mg tablet 20 mg PO QDAY Qty: 200 RF: 6 azithromycin 250 mg tablet 250 mg PO QMWF Qty: 12 RF: 6 Referrals / Follow Up: Zac Mendez MD [STAFF PHYSICIAN] - Within 2 Weeks (as scheduled ) Kenia Matthew MD [Primary Care Provider] - Disposition Disposition (needs filled in before D/C Order can be placed): Home, Self Care
--- NOTE | 2021-08-05 10:59 | PCM.DC.SUM ---
Providers Date of Admission: 08/03/21 Date of Discharge: 08/06/21 Primary Care Physician: Dr. 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 EMERGENT Consult: No MD Notified: Yes Date Notified: 08/03/21 Time Notified: 08:00 Method of Notification: Verbal Reason For Visit: ACUTE RESP FAILURE ON CHRONIC COPD EXACERBATION Diagnosis Discharge Diagnosis (1) Acute and chronic respiratory failure: Status: Acute Code(s): J96.20 - Acute and chronic respiratory failure, unspecified whether with hypoxia or hypercapnia Qualifiers: Respiratory failure complication: hypoxia and hypercapnia Qualified Code(s): J96.21 - Acute and chronic respiratory failure with hypoxia; J96.22 - Acute and chronic respiratory failure with hypercapnia (2) COPD exacerbation: Status: Acute Code(s): J44.1 - Chronic obstructive pulmonary disease with (acute) exacerbation (3) Stage 4 very severe COPD by GOLD classification: Status: Chronic Code(s): J44.9 - Chronic obstructive pulmonary disease, unspecified (4) Type 2 diabetes mellitus: Status: Chronic Code(s): E11.9 - Type 2 diabetes mellitus without complications Qualifiers: Diabetes mellitus complication detail: with other circulatory complications Diabetes mellitus complication status: with circulatory complication Diabetes mellitus ocean transportation intermediary insulin use: without shelter use Qualified Code(s): E11.59 - Type 2 diabetes mellitus with other circulatory complications (5) Congestive heart failure: Status: Chronic Code(s): I50.9 - Heart failure, unspecified Qualifiers: Heart failure chronicity: chronic Heart failure type: systolic Qualified Code(s): I50.22 - Chronic systolic (congestive) heart failure (6) Rhinovirus: Status: Acute Code(s): B34.8 - Other viral infections of unspecified site Medications at Discharge Home Medications aspirin 81 mg PO DAILY@0800 10/04/14 atorvastatin 40 mg PO QHS 10/04/14 clopidogrel 75 mg PO DAILY 10/04/14 furosemide 40 mg PO BID 10/04/14 multivitamin with folic acid 1 tab PO DAILY 10/04/14 budesonide-formoterol 2 puff INHALATION BID 02/24/15 roflumilast 500 mcg PO DAILY 02/24/15 famotidine 20 mg PO BID 08/01/15 bupropion HCl 100 mg tablet 100 mg PO BID 10/25/17 albuterol sulfate 2.5 mg INHALATION Q2H PRN PRN #1 box 11/08/17 albuterol sulfate 90 mcg/actuation aerosol inhaler 2 puff INHALATION Q2H PRN g 11/11/17 tiotropium bromide 18 mcg capsule with inhalation device 1 cap INHALATION DAILY 11/11/17 cholecalciferol (vitamin D3) 1,000 unit PO DAILY tab 02/13/18 ipratropium bromide 0.02 % solution for inhalation 0.5 mg INHALATION Q4H ml 05/01/18 losartan 25 mg tablet 25 mg PO 1400 09/14/18 budesonide 0.5 mg INHALATION BID 10/14/18 Oxygen, Home [Home Oxygen] 4 - 6 lpm NASAL CONT 07/24/19 ferrous sulfate 325 mg PO DINNER 07/24/19 potassium chloride 20 meq PO BID 07/24/19 metformin 500 mg tablet 250 mg PO QHS tab 10/01/19 metformin 500 mg tablet 500 mg PO BREAKFAST tab 10/01/19 metoprolol tartrate 25 mg tablet 25 mg PO BID #180 tab 12/15/20 azithromycin 250 mg PO MoWeFr #0 tab 08/05/21 prednisone See Taper PO DAILY #28 tab 08/05/21 Hospital Course Operations None Procedures None Summary of Care Provided Minutes Spent on Discharge: 45 Hospital Course: 60-year-old male with multiple comorbidities significant for severe/end-stage COPD with chronic hypoxic respiratory failure, on 4 to 6 L of oxygen at baseline and with trilogy at nighttime who comes in with progressive shortness of breath. The EMS was called and patient was found to be hypoxic. He was put on CPAP. He was transitioned to BiPAP in the ED. Patient stated that he has been vaccinated against COVID-19. His admitting chest x-ray showed mild infiltrate or atelectasis at the bases. Patient was admitted to the PCU and managed as acute COPD exacerbation. Respiratory panel was positive for rhinovirus. His COVID-19 rapid antigen was negative. Patient was maintained on IV Solu-Medrol breathing treatment. He is on prophylactic azithromycin Tuesday?Tuesday?Tuesday. Patient continued to improve. Pulmonology was consulted in this admission. He was discharged home on the same prophylactic azithromycin, prednisone taper to stop at 20 mg. He would follow-up with pulmonology in the outpatient within 1 to 2 weeks. Physical Exam Narrative Physical exam: General: Alert, oriented x3, cooperative, improved, on 4 L of oxygen HEENT: Atraumatic Oral: Moist Mucosa Neck: Supple Lungs: Diminished to auscultation Cardiovascular: HS I+II, regular, no murmurs Abdomen: Bowel Sounds Present, Soft, Non Tender Extremities: No edema Weight / BMI Weight Weight: 107.5 kg Body Mass Index (BMI) 33.3 ABG / Lab / Microbiology Data Result Diagrams: 08/04/21 06:12 08/05/21 05:50 Laboratory: Laboratory Results - last 24 hr 08/04/21 11:43: POC Glucose 207 H 08/04/21 17:00: POC Glucose 200 H 08/04/21 21:18: POC Glucose 183 H 08/05/21 05:50: Sodium 138, Potassium 4.3, Chloride 99, Carbon Dioxide 34.0 H, Anion Gap 5, BUN 24 H, Creatinine 1.05, Estim Creat Clear Calc 78.69, Est GFR (MDRD) Af Amer 92, Est GFR (MDRD) Non-Af 76, BUN/Creatinine Ratio 22.9 H, Glucose 147 H, Calcium 9.2 08/05/21 06:35: POC Glucose 142 H Microbiology: Microbiology 08/03/21 07:25 Mucosa - Nasopharyngeal Respiratory Panel (PCR) - Final Rhinovirus 08/03/21 03:52 Nasal Secretion SARS-CoV-2 Antigen (Rapid) - Final D/C Instructions Discharge Diet: Low fat / Low cholesterol, 2000 Calorie Control Diet and 2000 mg Sodium Diet Meaningful Use Info Meaningful Use Diagnoses (Choose all that apply): None applicable Discharge Plan Admission Admit Date/Time: 08/03/21 04:49 Primary Reason for Your Visit: Acute on chronic respiratory failure/Acute COPD exacerbation Attending Provider: Madeleine Haddad Primary Care Provider: Kenia Matthew Consulting Providers: Zac Mendez Instructions Additional Instructions / Restrictions: Continue to use your oxygen all the time. Complete your steroids. Discharge Orders/Prescriptions Prescriptions: New azithromycin 250 mg Tablet 250 mg PO MoWeFr Qty: 0 RF: 0 prednisone 10 mg tablet See Taper mg PO DAILY Qty: 28 RF: 0 Continued bupropion HCl 100 mg tablet 100 mg PO BID RF: 0 albuterol sulfate [Ventolin HFA] 90 mcg/actuation HFA aerosol inhaler 2 puff INHALATION Q2H PRN (Reason: shortness of breath or wheezing) RF: 0 tiotropium bromide [Spiriva with HandiHaler] 18 mcg capsule, w/inhalation device 1 cap INHALATION DAILY RF: 0 ipratropium bromide 0.02 % solution 0.5 mg INHALATION Q4H RF: 0 losartan 25 mg tablet 25 mg PO 1400 RF: 0 furosemide 40 MG tablet 40 mg PO BID RF: 0 atorvastatin 40 MG tablet 40 mg PO QHS RF: 0 clopidogrel 75 MG tablet 75 mg PO DAILY RF: 0 aspirin 81 MG tablet,chewable 81 mg PO DAILY@0800 RF: 0 multivitamin with folic acid 1 TABLET tablet 1 tab PO DAILY RF: 0 budesonide-formoterol 1 INHALER inhaler 2 puff INHALATION BID RF: 0 roflumilast 500 MCG tablet 500 mcg PO DAILY RF: 0 famotidine 20 MG tablet 20 mg PO BID RF: 0 metformin 500 mg tablet 500 mg PO BREAKFAST RF: 0 metformin 500 mg tablet 250 mg PO QHS RF: 0 albuterol sulfate 2.5 MG/3 ML solution for nebulization 2.5 mg INHALATION Q2H PRN PRN (Reason: dyspnea, wheezing) Qty: 1 RF: 0 cholecalciferol (vitamin D3) 1,000 UNIT tablet 1,000 unit PO DAILY RF: 0 budesonide 0.5 MG/2 ML suspension for nebulization 0.5 mg INHALATION BID RF: 0 potassium chloride 20 MEQ tablet,ER particles/crystals 20 meq PO BID RF: 0 ferrous sulfate 325 MG tablet 325 mg PO DINNER RF: 0 Oxygen, Home [Home Oxygen] 4 - 6 lpm NASAL CONT RF: 0 metoprolol tartrate 25 mg tablet 25 mg PO BID Qty: 180 RF: 3 Discontinued prednisone 10 mg tablet 20 mg PO QDAY Qty: 200 RF: 6 azithromycin 250 mg tablet 250 mg PO QMWF Qty: 12 RF: 6 Referrals / Follow Up: Zac Mendez MD [STAFF PHYSICIAN] - Within 2 Weeks (as scheduled ) Kenia Matthew MD [Primary Care Provider] - Disposition Disposition (needs filled in before D/C Order can be placed): Home, Self Care Charges/Coding Visit Charges Inpatient E&M: 52663 Disch Hosp
--- NOTE | 2021-08-05 11:08 | CASEMGMT ---
Pt does not qualify for any increased home oxygen at discharge. Pt declines any further resources and states no concerns with going home at time of discharge. Pt did state that the cats are chewing his tubing so call to [facility] to notify and Ilda states she will send out new tubing. Miguel VALENCIA CM
[2021-08-05] MEDS: Insulin Lispro 100 UNIT/ML INSULN.PEN SC (11:36)
--- NOTE | 2021-08-05 11:41 | PHA.DC.MR ---
Pharmacy Service has performed discharge medication reconciliation for this patient. The patient's discharge medication list was reviewed for discrepancies and discrepancies were resolved. Home Medications aspirin 81 mg PO DAILY@0800 10/04/14 atorvastatin 40 mg PO QHS 10/04/14 clopidogrel 75 mg PO DAILY 10/04/14 furosemide 40 mg PO BID 10/04/14 multivitamin with folic acid 1 tab PO DAILY 10/04/14 budesonide-formoterol 2 puff INHALATION BID 02/24/15 roflumilast 500 mcg PO DAILY 02/24/15 famotidine 20 mg PO BID 08/01/15 bupropion HCl 100 mg tablet 100 mg PO BID 10/25/17 albuterol sulfate 2.5 mg INHALATION Q2H PRN PRN #1 box 11/08/17 albuterol sulfate 90 mcg/actuation aerosol inhaler 2 puff INHALATION Q2H PRN g 11/11/17 tiotropium bromide 18 mcg capsule with inhalation device 1 cap INHALATION DAILY 11/11/17 cholecalciferol (vitamin D3) 1,000 unit PO DAILY tab 02/13/18 ipratropium bromide 0.02 % solution for inhalation 0.5 mg INHALATION Q4H ml 05/01/18 losartan 25 mg tablet 25 mg PO 1400 09/14/18 budesonide 0.5 mg INHALATION BID 10/14/18 Oxygen, Home [Home Oxygen] 4 - 6 lpm NASAL CONT 07/24/19 ferrous sulfate 325 mg PO DINNER 07/24/19 potassium chloride 20 meq PO BID 07/24/19 metformin 500 mg tablet 250 mg PO QHS tab 10/01/19 metformin 500 mg tablet 500 mg PO BREAKFAST tab 10/01/19 metoprolol tartrate 25 mg tablet 25 mg PO BID #180 tab 12/15/20 azithromycin 250 mg PO MoWeFr #0 tab 08/05/21 prednisone See Taper PO DAILY #28 tab 08/05/21
[2021-08-05 12:00] LABS: Bedside Glucose 229 mg/dL (70-110)
--- NOTE | 2021-08-06 15:16 | CASEMGMT ---
ERIK GUTIERREZ Discharge Follow-up Phone Call: HARI: Yuval Strata: 3 Call Date: 08/06/21 Discharge Date: 08/05/21 Time of Call: 1512 Duration: 3 min Admitting Diagnosis: COPD exac ERIK GUTIERREZ completed follow-up phone call after recent hospitalization. Patient states he is doing ok but having trouble breathing but states it his equipment. Patient states that he has call oxygen supply company and awaiting follow-up. Patient states he has appts scheduled with PCP and vacuum cleaner repair person. Patient was able to fill prescriptions without any issues. Patient had no further questions or concerns at this time.
== END 2021-08-05 12:23 | disposition home or self-care (01) | DRG 190 ==
LOC: ED 04:46 → PCU 07:15
PROVIDERS: Internal Medicine Critical Care Medicine; Admitting Provider Family Medicine; Emergency Provider Emergency Medicine; PCP Internal Medicine; Visit Provider Internal Medicine
DX: J44.1 Chronic obstructive pulmonary disease with (acute) exacerbation (principal); J96.21 Acute and chronic respiratory failure with hypoxia; J96.22 Acute and chronic respiratory failure with hypercapnia; I13.0 Hypertensive heart and chronic kidney disease with heart failure and stage 1 through stage 4 chronic kidney disease, or unspecified chronic kidney disease; I50.32 Chronic diastolic (congestive) heart failure; B97.89 Other viral agents as the cause of diseases classified elsewhere; I25.10 Atherosclerotic heart disease of native coronary artery without angina pectoris; G47.33 Obstructive sleep apnea (adult) (pediatric); F41.9 Anxiety disorder, unspecified; E78.5 Hyperlipidemia, unspecified; E66.9 Obesity, unspecified; D50.9 Iron deficiency anemia, unspecified; K21.9 Gastro-esophageal reflux disease without esophagitis; F32.A Depression, unspecified; D72.829 Elevated white blood cell count, unspecified; E11.22 Type 2 diabetes mellitus with diabetic chronic kidney disease; T38.0X5A Adverse effect of glucocorticoids and synthetic analogues, initial encounter; N18.32 Chronic kidney disease, stage 3b; Z79.02 Long term (current) use of antithrombotics/antiplatelets; Z79.82 Long term (current) use of aspirin; Z79.899 Other long term (current) drug therapy; Z79.84 Long term (current) use of oral hypoglycemic drugs; Z79.52 Long term (current) use of systemic steroids; Z59.00 Homelessness unspecified; Z87.891 Personal history of nicotine dependence; Z68.33 Body mass index [BMI] 33.0-33.9, adult; Z99.81 Dependence on supplemental oxygen; Z86.16 Personal history of COVID-19
CPT/HCPCS: 36415; 71045; 80048; 80053; 82962; 84145; 84484; 85025; 85379; 87426; 87633; 87641; 93005; 94002; 94003; 94640; 99251; 99285; J7030; J7050; A4216; G0463

== ENCOUNTER 2021-08-07 06:31 | Inpatient (IN) | payer MEDICARE, MEDICAID, SELFPAY ==
[2021-08-07] VITALS (61 sets, daily range): BP systolic 69–134; BP diastolic 31–81; PULSE 61–129; RESP 13–25; TEMP 36.2–38.8; O2SAT 87–100; BMI 41.1; BMI 36.8
--- NOTE | 2021-08-07 06:38 | ED.RN ---
dr delacruz preparing for intubation.
--- NOTE | 2021-08-07 06:42 | RAD_ITS ---
EXAM: XR CHEST, 1 VIEW : 1960 CLINICAL INDICATION: ETT placement TECHNIQUE: Frontal view of the chest. This report was created using [employer] PowerPractical technology. COMPARISON: None. FINDINGS: LUNGS AND PLEURAL SPACES: Diffuse interstitial and alveolar opacities and small pleural effusions. No pneumothorax. HEART: Unremarkable. Cardiac silhouette not enlarged. MEDIASTINUM: Central airways and mediastinal contour are unremarkable. BONES/JOINTS: Unremarkable. SOFT TISSUES: Unremarkable. TUBES, LINES AND DEVICES: Endotracheal tube with tip 6.5 cm above the timothy. Enteric tube extending just below the level of the GE junction with the tip in the proximal stomach. RAD/Chest 1 View (Portable) IMPRESSION: 1. Endotracheal tube with tip 6.5 cm above the timothy. 2. Diffuse interstitial and alveolar opacities and small pleural effusions. Findings may indicate edema and/or infection. at 0734 Reported and signed by: Sumeet Calderon MD Electronically Signed: Sumeet Calderon MD at 7:34 EDT Tel , Service support ,
--- NOTE | 2021-08-07 06:42 | EKG12_ITS ---
Test Reason : POST CARDIAC Blood Pressure : / mmHG Vent. Rate : 078 BPM Atrial Rate : 097 BPM P-R Int : 000 ms QRS Dur : 088 ms QT Int : 352 ms P-R-T Axes : 000 060 032 degrees QTc Int : 401 ms Accelerated Junctional rhythm Low voltage QRS Abnormal ECG Confirmed by ROMAN ROTHMAN, NAIF ([id number]), purchase request editor ANITA ALFARO ([id number]) on 08/07/2021 1:44:27 PM Referred By: ANURADHA Confirmed By:NAIF OWENS MD
--- NOTE | 2021-08-07 06:45 | EX.ED.CRITCA ---
HPI History of Present Illness Chief Complaint: CPR Informant: EMS Narrative Narrative: Patient was a witnessed collapse and arrest this morning by significant other. Symptoms prior to this are unknown. EMS states they found him in PEA, they gave 2 rounds of epinephrine and they had ROSC, then they lost his pulse again in PEA in route after placing an Igel and they did another round of ACLS with epinephrine and the patient has a pulse but is nonresponsive upon arrival by EMS. Patient was discharged from the hospital 2 days ago for a COPD exacerbation, his respiratory panel returned positive for rhinovirus and he was negative for Covid and allegedly vaccinated. [facility] Medical History Acute exacerbation of chronic obstructive pulmonary disease Acute on chronic respiratory failure with hypoxia and hypercapnia Anxiety Congestive heart failure Coronary artery disease Essential hypertension Hyperlipidemia MICHELLE (obstructive sleep apnea) Stage 4 very severe COPD by GOLD classification Tobacco abuse Type 2 diabetes mellitus Home Medications aspirin 81 mg PO DAILY@0800 10/04/14 [History Last Taken 07/31/20] atorvastatin 40 mg PO QHS 10/04/14 [History Last Taken 07/30/20] clopidogrel 75 mg PO DAILY 10/04/14 [History Last Taken 07/30/20] furosemide 40 mg PO BID 10/04/14 [History Last Taken 07/30/20] multivitamin with folic acid 1 tab PO DAILY 10/04/14 [History Last Taken 07/30/20] budesonide-formoterol 2 puff INHALATION BID 02/24/15 [History Last Taken 10/13/18 22:00 2 puff] roflumilast 500 mcg PO DAILY 02/24/15 [History Last Taken 10/13/18 08:00 500 mg] famotidine 20 mg PO BID 08/01/15 [History Last Taken 07/31/20] bupropion HCl 100 mg tablet 100 mg PO BID 10/25/17 [History Last Taken 07/30/20] albuterol sulfate 2.5 mg INHALATION Q2H PRN PRN #1 box 11/08/17 [Rx Last Taken 10/13/18 22:00 1 tx] albuterol sulfate 90 mcg/actuation aerosol inhaler 2 puff INHALATION Q2H PRN g 11/11/17 [History Last Taken 10/14/18 06:30 2 puffs] tiotropium bromide 18 mcg capsule with inhalation device 1 cap INHALATION DAILY 11/11/17 [History Last Taken 10/13/18 14:00 1 cap] cholecalciferol (vitamin D3) 1,000 unit PO DAILY tab 02/13/18 [Rx Last Taken 07/31/20] ipratropium bromide 0.02 % solution for inhalation 0.5 mg INHALATION Q4H ml 05/01/18 [History Last Taken 10/13/18 22:00 1 tx] losartan 25 mg tablet 25 mg PO 1400 09/14/18 [History Last Taken 07/30/20] budesonide 0.5 mg INHALATION BID 10/14/18 [History Last Taken 10/13/18 18:00 1 tx] Oxygen, Home [Home Oxygen] 4 - 6 lpm NASAL CONT 07/24/19 [History Last Taken Unknown] ferrous sulfate 325 mg PO DINNER 07/24/19 [History Last Taken 07/30/20] potassium chloride 20 meq PO BID 07/24/19 [History Last Taken 07/31/20] metformin 500 mg tablet 250 mg PO QHS tab 10/01/19 [History Last Taken 07/30/20] metformin 500 mg tablet 500 mg PO BREAKFAST tab 10/01/19 [History Last Taken 07/31/20] metoprolol tartrate 25 mg tablet 25 mg PO BID #180 tab 12/15/20 [Rx Last Taken Unknown] azithromycin 250 mg PO MoWeFr #0 tab 08/05/21 [Rx Last Taken Unknown] prednisone See Taper PO DAILY #28 tab 08/05/21 [Rx Last Taken Unknown] Allergy/AdvReac Type Severity Reaction Status Date / Time diazepam [From Valium] AdvReac Vomiting Verified 08/07/21 06:37 Family History Mother Diabetes Father Heart disease CVA (cerebral vascular accident) Brother Diabetes Asthma Surgical History Presence of stent in coronary artery (~07/2006) S/P rotator cuff repair Social History household members: family and other details: Previously was homeless, now living with his daughter. Smoking Status: Former smoker Tobacco: How many years used: 40 how long ago did patient quit smokin, 2pk/day second hand exposure: Yes alcohol intake: never substance use type: does not use ROS ROS ED Review of Systems ROS Unobtainable: due to mental status EXAM Physical Exam Const Vital Signs: 08/07/21 06:32 08/07/21 06:54 08/07/21 07:00 Temperature 97.3 F L Temperature Source Temporal Pulse Rate 61 82 96 Respiratory Rate 16 Blood Pressure 85/61 L 133/66 H Blood Pressure Mean 69 88 Pulse Ox 100 99 Oxygen Delivery Method Ambu-Bag Ambu-Bag Oxygen Flow Rate (L/min) 100 Fraction of Inspired Oxygen (FIO2) 70 Positive well nourished, well developed, obese and unkempt Constitutional Narrative: Obtunded with no spontaneous respirations. Patient appears dusky and cyanotic. General Appearance ED: unkempt and well developed Nutritional Appearance: obese HEENT Reports moist mucous membranes normocephalic and atraumatic Eyes Eyes Narrative: Pupils midpoint and fixed, nonresponsive Neck No nuchal rigidity and supple Resp Resp Narrative: Diffusely and symmetrically diminished and no other adventitious breath sounds except for some mild end expiratory wheezing with respiratory bagging. Easy to bag. No spontaneous respirations for systems. Cardio regular rate, regular rhythm and no murmurs GI non-tender and non-distended Auscultation: normoactive bowel sounds Palpation: soft Back/Spine normal to inspection Extremity normal to inspection General Extremety ED: Negative for edema, pulses abnormal or tenderness General Extremity: Negative for edema or pulses abnormal Neuro Neuro Narrative: All 4 extremities flaccid. Patient obtunded. Nilesh Coma Scale: document GCS findings None None None (t) 3 Meningeal Signs: no meningeal signs Psych Appearance: unkempt Skin no rashes or lesions noted and no wounds MDM MDM MDM Narrative Medical decision making narrative: Discussed with Dr. Mendez, who had spoken with the patient's after EMS left. Apparently the patient's trilogy nighttime ventilator was not working as it usually does, and he was gasping for air and then suddenly lost consciousness when she called EMS. This is consistent with an acute respiratory arrest causing cardiopulmonary arrest. Initially upon evaluation, patient's heart rate is in the 80s and his blood pressure is 85/61. While intubating him which did not require any sedatives as he is obtunded and not breathing on his own, and performing secondary survey, we are bolusing with fluids and after about half of a liter of fluids that EMS started, his blood pressure is 113 systolic and then after that before the liter was completed 133/66. His one-view portable stat chest x-ray confirmed good ETT placement, and looks more like failure with cephalization bilaterally and edema on my interpretation. We will slow the fluids down. On another reevaluation, now the patient is overbreathing the vent settings and making some reflexive jaw movements and gagging on the tube a little. GCS is still 3T. Rapid Covid is negative as it was this past week. Lactate is 12.1. Discussed with hospitalist for admission to ICU. Prior to going to ICU, patient started dropping his pressure. Now 80/60 even with lying flat/supine. He is starting to have intermittent relatively brief episodes of what appear to be full body seizure activity which may be indicative of anoxic brain injury. We treated him with Ativan 2 mg. I am now being told that the patient was down without bystander CPR for maybe 10 minutes prior to EMS arrival and intervention. We will start Levophed and peripheral IV prior to transport to ICU. Lab Data Attestation: I reviewed the patient's lab results. Labs: Laboratory Results - last 24 hr 08/07/21 08/07/21 08/07/21 06:42 06:42 06:42 WBC 29.4 H RBC 4.68 Hgb 12.3 L Hct 45.1 MCV 96.4 H D MCH 26.3 L MCHC 27.3 L D RDW Std Deviation 49.6 H RDW Coeff of Asael 13.8 Plt Count 389 MPV 9.6 Neut % (Auto) Not Reportable Absolute Neuts (auto) 11.8 H Absolute Lymphs (auto) 13.24 H Total Counted 100 Neutrophils % (Manual) 37 L Band Neutrophils % 3 Lymphocytes % (Manual) 45 H Monocytes % (Manual) 9 Metamyelocytes % 3 H Myelocytes % 3 H Diff Path Review May foll Atypical Lymphocytes 1+ Platelet Estimate ADEQUATE RBC Morphology NORM C+C Sodium 139 Potassium 4.3 Chloride 96 L Carbon Dioxide 29.0 Anion Gap 14 BUN 27 H Creatinine 1.72 H Estim Creat Clear Calc 45.10 Est GFR (MDRD) Af Amer 52 L Est GFR (MDRD) Non-Af 43 L BUN/Creatinine Ratio 15.7 Glucose 364 H Lactic Acid 12.1 H* Calcium 8.8 Total Bilirubin 0.20 AST 35 ALT 37 Alkaline Phosphatase 108 Troponin I High Sens 61 B-Natriuretic Peptide Total Protein 6.2 L Albumin 2.8 L Globulin 3.4 Albumin/Globulin Ratio 0.8 L Urine Color Urine Clarity Urine pH Ur Specific [place] Urine Protein Urine Glucose (UA) Urine Ketones Urine Occult Blood Urine Nitrite Urine Bilirubin Urine Urobilinogen Ur Leukocyte Esterase Urine RBC Urine WBC Ur Squamous Epith Cells Urine Bacteria Urine Mucus 08/07/21 08/07/21 06:42 07:05 WBC RBC Hgb Hct MCV MCH MCHC RDW Std Deviation RDW Coeff of Asael Plt Count MPV Neut % (Auto) Absolute Neuts (auto) Absolute Lymphs (auto) Total Counted Neutrophils % (Manual) Band Neutrophils % Lymphocytes % (Manual) Monocytes % (Manual) Metamyelocytes % Myelocytes % Diff Path Review Atypical Lymphocytes Platelet Estimate RBC Morphology Sodium Potassium Chloride Carbon Dioxide Anion Gap BUN Creatinine Estim Creat Clear Calc Est GFR (MDRD) Af Amer Est GFR (MDRD) Non-Af BUN/Creatinine Ratio Glucose Lactic Acid Calcium Total Bilirubin AST ALT Alkaline Phosphatase Troponin I High Sens B-Natriuretic Peptide 82.5 Total Protein Albumin Globulin Albumin/Globulin Ratio Urine Color Yellow Urine Clarity Clear Urine pH 5.0 Ur Specific [place] 1.025 Urine Protein 15 H Urine Glucose (UA) 100 H Urine Ketones Negative Urine Occult Blood 25 H Urine Nitrite Negative Urine Bilirubin Negative Urine Urobilinogen Normal Ur Leukocyte Esterase Negative Urine RBC 0 SEEN Urine WBC 0 SEEN Ur Squamous Epith Cells 0 SEEN Urine Bacteria 0 SEEN Urine Mucus 0 SEEN Radiography Diagnostic Testing: Clinical Impression(s) from Imaging Studies Chest X-Ray 08/07/21 06:42 IMPRESSION: 1. Endotracheal tube with tip 6.5 cm above the timothy. 2. Diffuse interstitial and alveolar opacities and small pleural effusions. Findings may indicate edema and/or infection. at 0734 Reported and signed by: Sumete Calderon MD Electronically Signed: Sumeet Calderon MD at 7:34 EDT Tel , Service support , KUB X-Ray 08/07/21 06:52 IMPRESSION: Tip of the enteric tube is just below level of the GE junction within the proximal stomach. Consider advancing 8-10 cm. at 0735 Reported and signed by: Sumeet Calderon MD Electronically Signed: Sumeet Calderon MD at 7:34 EDT Tel , Service support , EKG Initial EKG: Attestation: I personally reviewed and interpreted this EKG as follows: Interpretation: No Acute Injury Pattern and Junctional Comments: EMS EKG showed probable junctional tachycardia with anterior septal ST depressions indicative of ischemia/recovery, EKG here in the emergency department shows resolution of these ST segment deviations and there is no acute injury pattern. Procedures Intubations Intubation Method: orotracheal Intubation Verification: Positive color change and Bilateral breath sounds confirmed Intubation Complications: oral-unsuccessful attempt (Due to MAC 3 not able to lift hypopharynx enough to visualize glottis. There was no desaturation and the patient was bagged in between attempts. A Hernandez 4 was used 2 lift the epiglottis and visualize the cords, the 8 tube was visualized passing through the cords and it was secured at 22 cm at lip) Critical Care Time Critical Care Time: Yes Critical care time (excluding procedures): 30-74 minutes (40), Including time spent:, Discussing w/Patient &/or Family/Adjuster Arbitrator, Discussing w/Consultants, Arranging Admission or Transfer and Performing Direct Patient Care at Bedside Discharge Plan Dx/Rx/DC Orders Clinical Impression: Cardiopulmonary arrest with successful resuscitation, Acute and chronic respiratory failure with hypoxia, Respiratory arrest before cardiac arrest, ANNETTE (acute kidney injury), Hypotension, Seizure-like activity Disposition Disposition: [facility]
[2021-08-07 06:52] LABS: Hematocrit 45.1 % (40-54); Hemoglobin 12.3 g/dL (13.0-16.5); Mean Corp Hgb Conc 27.3 g/dL (32-36); Mean Corpuscular Hgb 26.3 pg (27.0-32.0); Mean Corpuscular Volume 96.4 fL (80-94); Mean Platelet Vol. 9.6 fl (6.2-12.0); POSITIVE COUNT YES; POSITIVE DIFFERENTIAL YES; POSITIVE MORPHOLOGY YES; Platelet Count 389 K/mm3 (150-450); RBC Distribution Width CV 13.8 % (11.6-14.6); RBC Distribution Width SD 49.6 fl (35.1-43.9); Red Blood Count 4.68 M/mm3 (4.6-6.2); White Blood Count 29.4 K/mm3 (4.4-11.0)
--- NOTE | 2021-08-07 06:52 | RAD_ITS ---
EXAM: XR ABDOMEN, 1 VIEW : 1960 CLINICAL INDICATION: NG Insertion TECHNIQUE: Frontal supine view of the abdomen/pelvis. This report was created using [employer] report generation technology. COMPARISON: None. FINDINGS: LOWER THORAX: No acute pathology. GASTROINTESTINAL TRACT: Unremarkable. Non-obstructive. No bowel or stomach distention. ORGANS: Unremarkable as visualized. No organomegaly. No abnormal calcifications. BONES/JOINTS: No acute pathology. SOFT TISSUES: No acute pathology. TUBES, LINES AND DEVICES: Tip of the enteric tube is just below level of the GE junction within the proximal stomach. RAD/Abdomen Single View (Portable) IMPRESSION: Tip of the enteric tube is just below level of the GE junction within the proximal stomach. Consider advancing 8-10 cm. at 0735 Reported and signed by: Sumeet Calderon MD Electronically Signed: Sumeet Calderon MD at 7:34 EDT Tel , Service support ,
[2021-08-07 06:55] LABS: Differential Indicated MANUAL DIFF
--- NOTE | 2021-08-07 07:08 | ED.RN ---
og was advanced per directions of dr delacruz,pt placed on vent--ac 16,tv600,peep5,fio2 70 percent.
--- NOTE | 2021-08-07 07:10 | ED.RN ---
0642 blood sugar 291.
[2021-08-07 07:11] LABS: Bacteria 0 SEEN /hpf (None Seen); Mucous, Urine 0 SEEN /hpf (<or=2+); Red Blood Cells-Urine 0 SEEN /hpf (0-5); Squamous Epithelial Cells - UA 0 SEEN /hpf (0-5); White Blood Cells 0 SEEN /hpf (0-5)
[2021-08-07 07:15] LABS: Color, Urine Yellow (Yellow); Glucose, Dipstick 100 mg/dl (Normal); Ketone-Dipstick Negative (Negative); Leukocyte Esterase-Dipstick Negative /ul (Negative); Nitrite-Dipstick Negative (Negative); Occult Blood-Urine 25 /ul (Negative); Protein-Dipstick 15 mg/dl (Negative); Specific Gravity, Urine 1.025 (1.002-1.030); Urine Bilirubin Dipstick Negative (Negative); Urine Clarity Clear (Clear); Urine Urobilinogen Normal (Normal)
--- NOTE | 2021-08-07 07:18 | HP.PCM.HOS_ITS ---
HPI - General General Date of Admission: 08/07/21 Date of Service: 08/07/21 Chief Complaint: Witnessed Collapse and arrest -this morning HPI Narrative TIARA JACOB, is a 60 M who presents with the above. Patient was recently discharged on 08/05/21 after admission for acute COPD exacerbation secondary to rhinovirus. Patient was discharged on prednisone taper and prophylactic antibiotics. He was supposed to follow-up with pulmonology in the outpatient. Patient's reportedly called the EMS this morning when he complained of shortness of breath and then he passed out. The EMS found him in PEA and given 2 rounds of epinephrine and had return of spontaneous circulation. In route, he lost his pulse again and was in PEA. He received another round of epinephrine. Patient's trilogy ventilator was not working apparently. On arrival to the emergency room, patient was unresponsive but he had a pulse. His blood pressure was low. He was intubated without any sedatives. Blood pressures improved with IV fluid boluses [facility] Medical History Acute exacerbation of chronic obstructive pulmonary disease Acute on chronic respiratory failure with hypoxia and hypercapnia Anxiety Congestive heart failure Coronary artery disease Essential hypertension Hyperlipidemia MICHELLE (obstructive sleep apnea) Stage 4 very severe COPD by GOLD classification Tobacco abuse Type 2 diabetes mellitus Home Medications aspirin 81 mg PO DAILY@0800 10/04/14 [History Last Taken 07/31/20] atorvastatin 40 mg PO QHS 10/04/14 [History Last Taken 07/30/20] clopidogrel 75 mg PO DAILY 10/04/14 [History Last Taken 07/30/20] furosemide 40 mg PO BID 10/04/14 [History Last Taken 07/30/20] multivitamin with folic acid 1 tab PO DAILY 10/04/14 [History Last Taken 07/30/20] budesonide-formoterol 2 puff INHALATION BID 02/24/15 [History Last Taken 10/13/18 22:00 2 puff] roflumilast 500 mcg PO DAILY 02/24/15 [History Last Taken 10/13/18 08:00 500 mg] famotidine 20 mg PO BID 08/01/15 [History Last Taken 07/31/20] bupropion HCl 100 mg tablet 100 mg PO BID 10/25/17 [History Last Taken 10/21/20] albuterol sulfate 2.5 mg INHALATION Q2H PRN PRN #1 box 11/08/17 [Rx Last Taken 10/13/18 22:00 1 tx] albuterol sulfate 90 mcg/actuation aerosol inhaler 2 puff INHALATION Q2H PRN g 11/11/17 [History Last Taken 10/14/18 06:30 2 puffs] tiotropium bromide 18 mcg capsule with inhalation device 1 cap INHALATION DAILY 11/11/17 [History Last Taken 10/13/18 14:00 1 cap] cholecalciferol (vitamin D3) 1,000 unit PO DAILY tab 02/13/18 [Rx Last Taken 07/31/20] ipratropium bromide 0.02 % solution for inhalation 0.5 mg INHALATION Q4H ml 05/01/18 [History Last Taken 10/13/18 22:00 1 tx] losartan 25 mg tablet 25 mg PO 1400 09/14/18 [History Last Taken 07/30/20] budesonide 0.5 mg INHALATION BID 10/14/18 [History Last Taken 10/13/18 18:00 1 tx] Oxygen, Home [Home Oxygen] 4 - 6 lpm NASAL CONT 07/24/19 [History Last Taken Unknown] ferrous sulfate 325 mg PO DINNER 07/24/19 [History Last Taken 07/30/20] potassium chloride 20 meq PO BID 07/24/19 [History Last Taken 07/31/20] metformin 500 mg tablet 250 mg PO QHS tab 10/01/19 [History Last Taken 07/30/20] metformin 500 mg tablet 500 mg PO BREAKFAST tab 10/01/19 [History Last Taken 07/31/20] metoprolol tartrate 25 mg tablet 25 mg PO BID #180 tab 12/15/20 [Rx Last Taken Unknown] azithromycin 250 mg PO MoWeFr #0 tab 08/05/21 [Rx Last Taken Unknown] prednisone See Taper PO DAILY #28 tab 08/05/21 [Rx Last Taken Unknown] Allergy/AdvReac Type Severity Reaction Status Date / Time diazepam [From Valium] AdvReac Vomiting Verified 08/07/21 06:37 Family History Mother Diabetes Father Heart disease CVA (cerebral vascular accident) Brother Diabetes Asthma Surgical History Presence of stent in coronary artery (~07/2006) S/P rotator cuff repair Social History household members: family and other details: Previously was homeless, now l iving with his daughter. Smoking Status: Former smoker Tobacco: How many years used: 40 how long ago did patient quit smokin, 2pk/day second hand exposure: Yes alcohol intake: never substance use type: does not use ROS Review of Systems ROS Unobtainable: due to encephalopathy Vital Signs Vital Signs Vital Signs: 08/07/21 06:32 08/07/21 06:54 Temperature 97.3 F L Temperature Source Temporal Pulse Rate 61 82 Blood Pressure 85/61 L 133/66 H Blood Pressure Mean 69 88 Pulse Ox 100 Oxygen Delivery Method Ambu-Bag Ambu-Bag Oxygen Flow Rate (L/min) 100 Weight Weight: 126.3 kg Body Mass Index (BMI) 41.1 Physical Exam Narrative Physical exam: General: Obtunded, intubated, on mechanical ventilator, having myoclonic jerks HEENT: Atraumatic Oral: Moist Mucosa Neck: Supple Lungs: Diminished to auscultation Cardiovascular: HS I+II, regular, no murmurs Abdomen: Bowel Sounds Present, Soft, Non Tender Extremities: No edema Results Lab / Micro Data Result Diagrams: 08/07/21 06:42 08/07/21 06:42 Labs: Laboratory Results - last 24 hr 08/07/21 06:42: WBC 29.4 H, RBC 4.68, Hgb 12.3 L, Hct 45.1, MCV 96.4 H D, MCH 26.3 L, MCHC 27.3 L D, RDW Std Deviation 49.6 H, RDW Coeff of Asael 13.8, Plt Count 389, MPV 9.6, Neut % (Auto) Not Reportable Micro: Microbiology 08/07/21 06:43 Interface Orders SARS-CoV-2 Antigen (Rapid) - Final Assessment & Plan Assessment/Plan (1) Cardiopulmonary arrest with successful resuscitation: (2) Respiratory arrest before cardiac arrest: (3) ANNETTE (acute kidney injury): (4) Hypotension: QUALIFIERS: Hypotension type: unspecified hypotension type Qualified Code(s): I95.9 - Hypotension, unspecified (5) Seizure-like activity: (6) Lactic acidosis: PLAN: 1. Acute hypercapnic respiratory failure secondary to acute respiratory arrest Status post intubation, continue on mechanical ventilator Continue IV Solu-Medrol, breathing treatments Field Representatives Director consulted 2. Status post cardiopulmonary arrest secondary to acute respiratory arrest Status post CPR for PEA Will continue to monitor 3. Hypotension, unspecified, likely secondary to propofol side effect Will get blood cultures Patient is getting a central line, Levophed will be started 4. Acute kidney injury likely secondary to #1 and 3 Admitting creatinine is 1.72 We will continue to work on blood pressures and fluids to see how he does Repeat blood work in a.m. 5. Probable anoxic brain injury in a patient; patient having myoclonic jerks Will continue to monitor 6. Acute COPD exacerbation in a patient with end-stage COPD Continue IV Solu-Medrol 7. DVT prophylaxis?heparin subcu Patient's prognosis is guarded Charges/Coding Visit Charges Inpatient E&M: 26270 Init Hosp L3
[2021-08-07 07:23] LABS: ALB/GLOB Ratio 0.8 RATIO (0.9-2.4); AST(SGOT) 35 U/L (15-37); Alanine Aminotransfer ALT/SGPT 37 U/L (16-61); Albumin, Serum 2.8 g/dL (3.2-5.0); Alkaline Phosphatase 108 U/L (45-117); Anion Gap 14 (5-15); BUN 27 mg/dL (7-18); BUN/Creat Ratio 15.7 RATIO (10-20); Calcium,Total 8.8 mg/dL (8.5-10.1); Chloride 96 mmol/L (98-107); Creatinine, Serum 1.72 mg/dL (0.70-1.30); EST Glomerular Filtration Rate 43 mL/min (>60); Est Glom Filt Rate - Afr Amer 52 mL/min (>60); Globulin 3.4 g/dL (2.2-4.2); Glucose 364 mg/dL (74-106); Potassium 4.3 mmol/L (3.5-5.1); Protein, Total 6.2 g/dL (6.4-8.2); Sodium Level 139 mmol/L (136-145); Troponin-I HS 61 pg/mL (3.0-78.0)
[2021-08-07 07:29] LABS: Lactic Acid 12.1 mmol/L (0.4-1.9)
[2021-08-07 07:30] LABS: BNP,B-Type NATRIURETIC PEPTIDE 82.5 pg/mL (0-100)
[2021-08-07 07:33] LABS: Atypical Lymphocyte 1+ %; Lymphocyte 45 % (19-41); Metamyelocyte 3 % (0-1); Monocyte 9 % (0-10); Myelocyte 3 % (0-0); Neutrophil-Band 3 % (0-5); Neutrophil-Segmented 37 % (47-70); Platelet Estimate ADEQUATE (ADEQ); Total Cells Counted 100 (MANUAL DIFF)
[2021-08-07] MEDS: LORazepam 2 MG/ML Syringe IV ×2 (07:33→08:06)
[2021-08-07 07:34] LABS: Absolute Lymphocyte Count 13.24 X10^3/uL (0.83-4.51); Absolute Neutrophil Count 11.8 X10^3/uL (2.0-7.7); Lymphocyte # 13.24 X10^3/ul (0.83-4.51); Neutrophil # 11.77 X10^3/uL (2.7-7.7); Red Cell Morphology NORM C+C NORMAL (NORM C&C)
[2021-08-07 07:36] LABS: Allen Test Positive; Base Excess -2 mmol/L (-2 to +2); Bicarbonate 27.3 mmol/L (22-26); Blood Gas Specimen Type ART; FI02 70; Mode AC; O2 Delivery Device Adult Vent; PEEP 5; PO2 234 mmHG (75-100); RR 16; SITE R Radial; SO2 100 % (95-99); Total Carbon Dioxide 30 mmol/L; Vt 600; pCO2 87.6 mmHg (35-45)
--- NOTE | 2021-08-07 08:22 | ED.RN ---
called and updated her on his status .
[2021-08-07] MEDS: Propofol 10MG/Ml 1,000 MG/100 ML Bottle 6.8 MG CONT INF (08:30)
[2021-08-07] MEDS: 0.9% Saline Lock 10 ML Syringe IV ×2 (08:39→12:19)
--- NOTE | 2021-08-07 08:39 | PCS.PANDOC ---
PANDEMIC DOCUMENTATION INITIATED: Date: 05/25/2021 Time: 190
--- NOTE | 2021-08-07 09:17 | RAD_ITS ---
STUDY: X-RAY CHEST REASON FOR EXAM: Male, 60 years old. central line placement TECHNIQUE: Single AP portable view of the chest. COMPARISON: Earlier today FINDINGS: Endotracheal tube is stable. Esophagogastric tube redemonstrated with distal aspect not included on this exam. EKG leads project over the chest. Right jugular central venous catheter present with tip overlying the mid SVC level. Patchy bilateral pulmonary infiltrates most conspicuous in the right lung base stable. Linear subpleural reticulation at the right lateral lung base. No sizable effusion. Normal size heart. Normal mediastinum and kim. Normal visualized pulmonary arteries. There is atherosclerotic tortuosity of the aortic arch and descending thoracic aorta. No acute bony process. There is no demonstrated abnormality of the visualized soft tissue structures of the upper abdomen. RAD/Chest 1 View (Portable) IMPRESSION: 1. Satisfactory position of right jugular central venous catheter. 2. Multilobar (right dominant) pulmonary infiltrates suggest pneumonia versus pulmonary edema. Electronically Signed: Fazal Sullivan MD (Brooks) at 9:33 EDT , Service support ,
--- NOTE | 2021-08-07 09:18 | PCM.OP.BLANK ---
Operative Report Date of Procedure: 08/07/21 Central line placement procedure note Indication: IV access/hemodynamic instability/vasoactive medications Procedure: A time-out was completed to verify correct patient, indication, medication allergies, procedure, coagulation studies, informed consent signed, and equipment needed. The patient was placed in the supine position for a central line placement to the rt IJ vein. The patients rt neck was prepped using chlorhexidine and a full body sterile drape was applied. 1% lidocaine was used to anesthetize the surrounding skin. A 7fr 16 cm blue guard triple lumen catheter introduced into the internal jugular vein using the modified Seldinger technique with the assistance of ultrasound. The catheter was threaded smoothly over the guidewire, the guidewire was removed easily, nonpulsatile blood returned. All ports were aspirated of air and flushed with sterile saline. The catheter was sutured in place and covered with an occlusive dressing impregnated with chlorhexidine. Post-procedure: The patient tolerated the procedure well. Vital signs remained stable. EBL 3cc. No complications. Chest X Ray ordered and confirmed tip placement and the absence of pneumothorax. Procedures Hospitalists Procedures: [id number] Insert Non-tunnel CV Cath
[2021-08-07 09:57] LABS: CPK Total, Creatine Kinase 107 U/L (39-308); Triglycerides 160 mg/dL
[2021-08-07 10:01] LABS: Allen Test Positive; Base Excess 6 mmol/L (-2 to +2); Bicarbonate 34.7 mmol/L (22-26); Blood Gas Specimen Type ART; FI02 60; Mode AC; O2 Delivery Device Adult Vent; PEEP 5; PO2 72 mmHG (75-100); RR 16; SITE L Radial; SO2 87 % (95-99); Total Carbon Dioxide 38 mmol/L; Vt 500; pCO2 97.8 mmHg (35-45); pH 7.16 (7.35-7.45)
[2021-08-07 10:49] LABS: Reflex Lactate? Y
[2021-08-07] MEDS: Chlorhexidine 15 ML PO ×2 (11:15→21:54)
[2021-08-07 11:40] LABS: Lactic Acid 1.8 mmol/L (0.4-1.9)
[2021-08-07] MEDS: Heparin Injection (Vial) 5,000 UNIT/ML VIAL 5000 UNIT SC ×2 (12:18→21:57)
--- NOTE | 2021-08-07 12:25 | EX.PCM.CONCC ---
Assessment & Plan Assessment/Plan (1) Cardiopulmonary arrest with successful resuscitation: (2) Respiratory arrest before cardiac arrest: (3) Seizure-like activity: (4) COPD exacerbation: (5) Rhinovirus: PLAN: RECOMMENDATIONS: 1. Continue mechanical ventilation at the current settings 2. Await EEG 3. Support hemodynamics with pressors, steroids and bronchodilators 4. Possible family meeting later today 5. Hold on antibiotics for now IMPRESSIONS: 1. Probable anoxic brain injury secondary to PEA secondary to respiratory arrest Patient with recent COPD exacerbation secondary to rhinovirus and reportedly had a dysfunctional trilogy machine. This was leading to significant hypoxemia and decompensation. Patient is oxygenating well at this time, but still has significant acidosis. Vent settings have been changed to address this. Unfortunately, patient is having significant myoclonic jerking indicating probable severe anoxic brain injury. Anticipate swelling over the next 24 to 48 hours. Cooling is not available at this time. Will obtain an EEG for evaluation. Once EEG is completed, anticipate propofol at a set dose 2. Shock Clinical suspicion for distributive shock secondary to neurogenic causes. Patient is on Levophed and vasopressin. Cannot exclude the need for a third pressor. Patient will be placed on stress dose steroids. 3. Acute kidney injury Creatinine elevated to 1.72. Clinical suspicion that this is a prerenal etiology secondary to problems 1 and 2. Patient is at high risk for developing ATN. Continue to monitor labs. No indication for renal replacement therapy at this time. 4. Recent COPD exacerbation secondary to rhinovirus/Hypertension/MICHELLE/hyperlipidemia Complicates care, management, recovery and prognosis. Overall, prognosis appears to be grim. We will continue to support for 24 to 48 hours. Addendum 1:37 PM: Patient is a longtime patient of myself and I am very familiar with his . Call the to discuss the patient's situation. She wishes to be aggressive for the first 48 hours. Stressed to her that if there is no neurologic improvement in 48 hours, I would recommend palliative measures. She is aware that he has made it through similar type episodes and wants to give him a chance. Stressed to her that if he is not better in 48 hours the likelihood of the recovery back to his previous status would be unlikely. She understands that a third medication has been added to help support the blood pressure and repeat arrest is not uncommon at this point. TIME: 80 minutes of critical care time spent addressing patient's respiratory failure, shock, probable anoxic brain injury, acute kidney injury, review of all data and collaboration with care team (7:30 AM to 12:30 PM) HPI Consult Data Date of Consult: 08/07/21 HPI Narrative HPI Narrative: TIARA JACOB is a 60 M, with past medical history listed below and well-known to me, who presents to [facility] on 08/07[facility]2021 after a witnessed collapse by significant other. On EMS arrival, patient was found to be in PEA arrest and received 2 rounds of epinephrine until ROSC. Patient had lost a pulse in route that resolved with an Igel. Patient was recently discharged from the hospital 2 days ago secondary to a COPD exacerbation secondary to rhinovirus. Patient was Covid negative at that time. Patient's had called me personally after EMSs arrival. She had reported that there was significant difficulties with the trilogy machine overnight. Patient reportedly had had difficulties with a new cat causing destruction to his NIV supplies. Patient had done well during the day otherwise. In the ER, patient was afebrile and hypotensive at 85/61 receiving 100% oxygen from an Ambu bag. Patient was emergently intubated and then started to have some issues with hypotension. Patient had received 2 L of fluid. No pressors were initiated. Patient was having questionable seizure activity and was given 2 mg of Ativan. Laboratory work-up showed a white count of 29.4, hemoglobin of 12.3, creatinine of 1.72, lactate of 12, and an unremarkable BMP and UA. Chest x-ray showed appropriate placement of supportive devices. Subsequently transferred to the intensive care unit. Since being in the intensive care unit, patient has continued to have myoclonic type jerking. Patient did have a central line placed to facilitate pressors. Patient has had to go on to a second pressor at this time. Patient continues to have no response to tactile or verbal stimuli. Patient does have myoclonic jerking with any loud noises, but is not following commands. [facility] Medical History Acute exacerbation of chronic obstructive pulmonary disease Acute on chronic respiratory failure with hypoxia and hypercapnia Anxiety Congestive heart failure Coronary artery disease Essential hypertension Hyperlipidemia MICHELLE (obstructive sleep apnea) Stage 4 very severe COPD by GOLD classification Tobacco abuse Type 2 diabetes mellitus Home Medications aspirin 81 mg PO DAILY@0800 12/26/14 [History Last Taken 07/31/20] atorvastatin 40 mg PO QHS 10/04/14 [History Last Taken 07/30/20] clopidogrel 75 mg PO DAILY 10/04/14 [History Last Taken 07/30/20] furosemide 40 mg PO BID 10/04/14 [History Last Taken 07/30/20] multivitamin with folic acid 1 tab PO DAILY 10/04/14 [History Last Taken 07/30/20] budesonide-formoterol 2 puff INHALATION BID 02/24/15 [History Last Taken 10/13/18 22:00 2 puff] roflumilast 500 mcg PO DAILY 02/24/15 [History Last Taken 10/13/18 08:00 500 mg] famotidine 20 mg PO BID 08/01/15 [History Last Taken 07/31/20] bupropion HCl 100 mg tablet 100 mg PO BID 10/25/17 [History Last Taken 07/30/20] albuterol sulfate 2.5 mg INHALATION Q2H PRN PRN #1 box 11/08/17 [Rx Last Taken 10/13/18 22:00 1 tx] albuterol sulfate 90 mcg/actuation aerosol inhaler 2 puff INHALATION Q2H PRN g 11/11/17 [History Last Taken 10/14/18 06:30 2 puffs] tiotropium bromide 18 mcg capsule with inhalation device 1 cap INHALATION DAILY 11/11/17 [History Last Taken 10/13/18 14:00 1 cap] cholecalciferol (vitamin D3) 1,000 unit PO DAILY tab 02/13/18 [Rx Last Taken 07/31/20] ipratropium bromide 0.02 % solution for inhalation 0.5 mg INHALATION Q4H ml 05/01/18 [History Last Taken 10/13/18 22:00 1 tx] losartan 25 mg tablet 25 mg PO 1400 09/14/18 [History Last Taken 07/30/20] budesonide 0.5 mg INHALATION BID 10/14/18 [History Last Taken 10/13/18 18:00 1 tx] Oxygen, Home [Home Oxygen] 4 - 6 lpm NASAL CONT 07/24/19 [History Last Taken Unknown] ferrous sulfate 325 mg PO DINNER 07/24/19 [History Last Taken 07/30/20] potassium chloride 20 meq PO BID 10/15/19 [History Last Taken 07/31/20] metformin 500 mg tablet 250 mg PO QHS tab 10/01/19 [History Last Taken 07/30/20] metformin 500 mg tablet 500 mg PO BREAKFAST tab 10/01/19 [History Last Taken 07/31/20] metoprolol tartrate 25 mg tablet 25 mg PO BID #180 tab 12/15/20 [Rx Last Taken Unknown] azithromycin 250 mg PO MoWeFr #0 tab 08/05/21 [Rx Last Taken Unknown] prednisone See Taper PO DAILY #28 tab 08/05/21 [Rx Last Taken Unknown] Allergy/AdvReac Type Severity Reaction Status Date / Time diazepam [From Valium] AdvReac Vomiting Verified 08/07/21 06:37 Family History Mother Diabetes Father Heart disease CVA (cerebral vascular accident) Brother Diabetes Asthma Surgical History Presence of stent in coronary artery (~07/2006) S/P rotator cuff repair Social History household members: family and other details: Previously was homeless, now living with his daughter. Smoking Status: Former smoker Tobacco: How many years used: 40 how long ago did patient quit smokin, 2pk/day second hand exposure: Yes alcohol intake: never substance use type: does not use ROS Review of Systems ROS Unobtainable: due to encephalopathy and due to endotracheal tube Physical Exam Const General Appearance: intubated and patient mechanically ventilated Nutritional Appearance: obese Eyes PERRL, EOMs intact bilaterally and conjunctivae normal Neck full ROM and No nuchal rigidity General: Negative for JVD Lymph Lymphatic: no lymphadenopathy noted Chest inspection of chest normal Chest Narrative: Increased AP diameter Resp Resp Narrative: Better air exchange compared to yesterday Effort and Inspection: tachypneic, prolonged expiratory phase and mechanically ventilated Auscultation: wheezes and diminished lung sounds; Negative for rales or rhonchi Cardio S1 normal heart sound and S2 normal heart sound Rate: tachycardic Rhythm: regular rhythm Heart Sounds: Negative for gallop, murmur or rub GI normal to inspection, nondistended, normoactive bowel sounds Extremity normal to inspection and normal capillary refill General Extremity: clubbing; Negative for cyanosis or edema Skin Skin Narrative: Dermal atrophy Neuro Neuro Narrative: Myoclonic jerking noted with any stimulation. Hyperreflexic. Pupils are pinpoint and becoming less reactive. Nilesh Coma Scale: document GCS findings None None None 3 Sensorium / Orientation: obtunded Psych mental status grossly normal, thought process normal and cooperative Lab / Micro Data Result Diagrams: 08/07/21 06:42 08/07/21 06:42 Labs: Laboratory Results - last 24 hr 08/07/21 06:42: WBC 29.4 H, RBC 4.68, Hgb 12.3 L, Hct 45.1, MCV 96.4 H D, MCH 26.3 L, MCHC 27.3 L D, RDW Std Deviation 49.6 H, RDW Coeff of Asael 13.8, Plt Count 389, MPV 9.6, Neut % (Auto) Not Reportable, Absolute Neuts (auto) 11.8 H, Absolute Lymphs (auto) 13.24 H, Total Counted 100, Neutrophils % (Manual) 37 L, Band Neutrophils % 3, Lymphocytes % (Manual) 45 H, Monocytes % (Manual) 9, Metamyelocytes % 3 H, Myelocytes % 3 H, Diff Path Review May foll, Atypical Lymphocytes 1+, Platelet Estimate ADEQUATE, RBC Morphology NORM C+C 08/07/21 06:42: Sodium 139, Potassium 4.3, Chloride 96 L, Carbon Dioxide 29.0, Anion Gap 14, BUN 27 H, Creatinine 1.72 H, Estim Creat Clear Calc 45.10, Est GFR (MDRD) Af Amer 52 L, Est GFR (MDRD) Non-Af 43 L, BUN/Creatinine Ratio 15.7, Glucose 364 H, Calcium 8.8, Total Bilirubin 0.20, AST 35, ALT 37, Alkaline Phosphatase 108, Troponin I High Sens 61, Total Protein 6.2 L, Albumin 2.8 L, Globulin 3.4, Albumin/Globulin Ratio 0.8 L 08/07/21 06:42: Lactic Acid 12.1 H* 08/07/21 06:42: B-Natriuretic Peptide 82.5 08/07/21 06:42: Total Creatine Kinase 107, Triglycerides 160 08/07/21 07:05: Urine Color Yellow, Urine Clarity Clear, Urine pH 5.0, Ur Specific [place] 1.025, Urine Protein 15 H, Urine Glucose (UA) 100 H, Urine Ketones Negative, Urine Occult Blood 25 H, Urine Nitrite Negative, Urine Bilirubin Negative, Urine Urobilinogen Normal, Ur Leukocyte Esterase Negative, Urine RBC 0 SEEN, Urine WBC 0 SEEN, Ur Squamous Epith Cells 0 SEEN, Urine Bacteria 0 SEEN, Urine Mucus 0 SEEN 08/07/21 11:10: Lactic Acid 1.8 Micro: Microbiology 08/07/21 06:43 Interface Orders SARS-CoV-2 Antigen (Rapid) - Final ABG Data ABG results: ABG 08/07/21 08/07/21 07:30 09:54 Specimen Type ART ART Sample Site R Radial L Radial pH 7.10 L* 7.16 L* Bicarbonate Actual 27.3 H 34.7 H Total CO2 30 38 Base Excess -2 6 H O2 Saturation 100 H 87 L O2 % 70 60 ABG pCO2 87.6 H* 97.8 H* ABG pO2 234 H 72 L Paco Test Positive Positive Respiration Rate 16 16 O2 Delivery Device Adult Vent Adult Vent Vent Mode AC AC Tidal Volume 600 500 POC PEEP 5 5 Crit Call To/Read Back Yes Yes Blood Gas Notified Whom nubia HENRY Radiology Impression Chest X-Ray 08/07/21 06:42 IMPRESSION: 1. Endotracheal tube with tip 6.5 cm above the timothy. 2. Diffuse interstitial and alveolar opacities and small pleural effusions. Findings may indicate edema and/or infection. at 0734 Reported and signed by: Sumeet Calderon MD Electronically Signed: Sumeet Calderon MD at 7:34 EDT Tel , Service support , KUB X-Ray 08/07/21 06:52 IMPRESSION: Tip of the enteric tube is just below level of the GE junction within the proximal stomach. Consider advancing 8-10 cm. at 0735 Reported and signed by: Sumeet Calderon MD Electronically Signed: Sumeet Calderon MD at 7:34 EDT Tel , Service support , Chest X-Ray 08/07/21 09:17 IMPRESSION: 1. Satisfactory position of right jugular central venous catheter. 2. Multilobar (right dominant) pulmonary infiltrates suggest pneumonia versus pulmonary edema. Electronically Signed: Fazal Sullivan MD (Brooks) at 9:33 EDT , Service support , Charges/Coding Procedures Hospitalists Procedures: 97965 Critial Care 1st Hr Multi Select Codes Hospitalists' Procedures Procedures: 05238 Critial Care Addl 30 Min
[2021-08-07 13:25] LABS: Pathologist Review Reviewed
--- NOTE | 2021-08-07 14:31 | CASEMGMT ---
ERIK GUTIERREZ chart review: Patient was admitted 08/03/21-08/05/21 for acute respiratory failure on chronic COPD. See ERIK GUTIERREZ assessment from 08/03/21. Ha was discharged to home with home oxygen 4-6 lpm, new tubing for home oxygen, and follow-up plans in place. Patient returned to [facility] ED on 08/07/21 for unresponsiveness and CPR. Per documentation patient was a witnessed collapse and arrest this morning by significant other after patients Triology unit stopped working at home. Per follow-up phone call patient had called [employer] to service machine. ERIK GUTIERREZ called [email or web address] and confirmed that they assisted the patient to troubleshoot over the phone and machine was working on 08/06/21 at 1545. Patient is currently on ventilator at 60%FiO2. CM will continue to follow this patient and assist with discharge planning when appropriate.
[2021-08-07 15:56] LABS: Bedside Glucose 291 mg/dL (70-110)
[2021-08-07] MEDS: Vital AF 1.2 Cal Liquid 1,000 ML 20 ML GT (16:03)
--- NOTE | 2021-08-07 17:36 | TELEMED_ITS ---
[facility] Telemed has confirmed receipt of a request for visit. This document confirms receipt of the order initiating the consult. To find the results of the consultation, please view the patient's reports for the scanned Telemed Consult.
[2021-08-07] MEDS: Acetaminophen 650 MG/20 ML UDC GT (18:05)
[2021-08-08] VITALS (52 sets, daily range): BP systolic 90–160; BP diastolic 53–96; PULSE 88–128; RESP 18–90; TEMP 37.1–38.3; O2SAT 35–99
[2021-08-08] MEDS: Propofol 10MG/Ml 1,000 MG/100 ML Bottle 6.8 MG CONT INF ×3 (00:02→22:28)
[2021-08-08] MEDS: LORazepam 2 MG/ML Syringe IV (04:08)
[2021-08-08 04:32] LABS: Absolute Lymphocyte Count 0.55 X10^3/uL (0.83-4.51); Absolute Neutrophil Count 27.5 X10^3/uL (2.0-7.7); Basophil# 0.09 X10^3/uL; Basophil% 0.3 % (0-1); Eosinophils% 3.5 % (0-5); Hematocrit 43.1 % (40-54); Hemoglobin 12.9 g/dL (13.0-16.5); Lymphocyte # 0.55 X10^3/ul (0.83-4.51); Lymphocyte % 1.8 % (19-41); Mean Corp Hgb Conc 29.9 g/dL (32-36); Mean Corpuscular Hgb 26.3 pg (27.0-32.0); Mean Corpuscular Volume 87.8 fL (80-94); Mean Platelet Vol. 9.5 fl (6.2-12.0); Monocyte% 4.8 % (0-10); NRBC Flagged by Analyzer 0 % (0-5); Neutrophil # 27.49 X10^3/uL (2.7-7.7); Neutrophil % 87.7 % (47-70); POSITIVE COUNT YES; POSITIVE DIFFERENTIAL YES; POSITIVE MORPHOLOGY YES; Platelet Count 355 K/mm3 (150-450); RBC Distribution Width CV 14.2 % (11.6-14.6); RBC Distribution Width SD 45.6 fl (35.1-43.9); Red Blood Count 4.91 M/mm3 (4.6-6.2); White Blood Count 31.3 K/mm3 (4.4-11.0)
[2021-08-08 04:37] LABS: Differential Indicated SCAN CRITERIA MET
[2021-08-08 04:53] LABS: ALB/GLOB Ratio 0.7 RATIO (0.9-2.4); AST(SGOT) 85 U/L (15-37); Alanine Aminotransfer ALT/SGPT 63 U/L (16-61); Albumin, Serum 2.6 g/dL (3.2-5.0); Alkaline Phosphatase 104 U/L (45-117); Anion Gap 7 (5-15); BUN 52 mg/dL (7-18); BUN/Creat Ratio 21.8 RATIO (10-20); Calcium,Total 8.2 mg/dL (8.5-10.1); Chloride 102 mmol/L (98-107); Creatinine, Serum 2.39 mg/dL (0.70-1.30); EST Glomerular Filtration Rate 30 mL/min (>60); Est Glom Filt Rate - Afr Amer 36 mL/min (>60); Estimated Creatinine Clearance 32.46 ml/min; Globulin 3.6 g/dL (2.2-4.2); Glucose 211 mg/dL (74-106); Potassium 3.9 mmol/L (3.5-5.1); Protein, Total 6.2 g/dL (6.4-8.2); Sodium Level 140 mmol/L (136-145)
[2021-08-08 05:30] LABS: Differential Comment SCANNED
--- NOTE | 2021-08-08 05:55 | PN.CC_ITS ---
Assessment & Plan Assessment/Plan (1) Cardiopulmonary arrest with successful resuscitation: (2) Respiratory arrest before cardiac arrest: (3) Seizure-like activity: (4) COPD exacerbation: (5) Rhinovirus: PLAN: RECOMMENDATIONS: 1. Continue patient on assist control mode mechanical ventilation and wean FiO2/PEEP to maintain saturations at or above 90%. 2. Obtain repeat arterial blood gas this morning. 3. Await EEG results. 4. Continue Levophed to maintain a mean arterial pressure at or above 65 mmHg. 5. Start scheduled bronchodilators. 6. Start empiric antimicrobials. 7. Ongoing goals of care discussion with the patient's family. IMPRESSIONS: 1. PEA cardiac arrest, likely secondary to primary respiratory event The patient presented to the hospital after suffering a primary respiratory arrest secondary to a COPD exacerbation and dysfunctional noninvasive ventilator, in his home environment. The patient was significantly hypoxemic for a period of time, prior to return of spontaneous circulation. For now, the patient will be continued on assist control mode of mechanical ventilation with FiO2 and PEEP weaned as tolerated. He will be continued on scheduled bronchodilators and IV steroids. Given increasing white count and sputum production, will start empiric antimicrobials. Tube feeds to remain on hold for now given high residuals. The patient's presenting COPD exacerbation was likely precipitated by a rhinovirus upper respiratory infection. 2. Concern for anoxic encephalopathy The patient is encephalopathic with concern for anoxic brain injury. He has been demonstrating periods of myoclonus as well. EEG was completed with results that are currently pending. Depending on the patient's clinical course over the next 24 hours, may need to consider MRI brain and neurology consultation to assist with prognostication. 3. Distributive shock Continue supportive measures including Levophed to maintain a mean arterial pressure at or above 65 mmHg. 4. Acute kidney injury Likely prerenal in etiology and related to ischemic ATN in the setting of #1. Continue vasopressor support to maintain hemodynamic stability. Continue to monitor urine output for now. No current indication for renal replacement therapy. 5. Recent COPD exacerbation secondary to rhinovirus/Hypertension/MICHELLE/hyperlipidemia Complicates care, management, recovery and prognosis. Start scheduled bronchodilator therapy. Continue to hold tube feeds for now. TIME: 34 minutes of critical care time, independent of procedures, was spent addressing the patient's PEA cardiac arrest, possible anoxic brain injury, distributive shock, acute kidney injury, COPD with exacerbation, review of all d arnie and collaboration with care team. Subjective Subjective The patient was seen and examined at the bedside this morning. Events from the last 24 hours have been reviewed. The patient has been persistently febrile over the last 12 hours with a T-max documented to be 101.9 ?F. The patient is currently hemodynamically stable, but requiring Levophed at 10 mcg/min to maintain stability. He is currently documented to be overall net +1.3 L for the hospitalization. The patient remains on a cooling blanket. Nursing staff has been reporting myoclonic jerking. He is currently sedated on propofol and fentanyl. White count this morning is elevated at 31,000. Creatinine has increased this morning to 2.39. AST and ALT are mildly increased. Objective Data Objective Data The patient's most recent lab work, culture data and imaging studies have all been personally reviewed. Rapid coronavirus antigen testing was negative. Respiratory viral panel was positive for rhinovirus. Blood, urine and sputum cultures are pending. Vital Signs: Vital Signs Temp Pulse Resp BP Pulse Ox 99.2 F H 114 H 18 99/53 L 99 08/08/21 05:00 08/08/21 05:00 08/08/21 05:00 08/08/21 05:45 08/08/21 05:00 Oxygen Flow Rate (L/min) 100 Oxygen Delivery Method Mechanical Ventilator Weight: 112.4 kg Body Mass Index (BMI) 36.8 Intake & Output: Intake and Output for Last 24 Hours 08/06/21 08/07/21 08/08/21 23:59 23:59 23:59 Intake Total 1225.75 / 1487.78 520.21 / 520.21 Output Total 300 / 475 175 / 175 Balance 925.75 / 1012.78 345.21 / 345.21 Lab / Micro Data Attestation: I reviewed the patient's lab results. Result Diagrams: 08/08/21 04:05 08/08/21 04:05 Labs: Laboratory Results - last 24 hr 08/07/21 06:41: POC Glucose 291 H 08/07/21 06:42: WBC 29.4 H, RBC 4.68, Hgb 12.3 L, Hct 45.1, MCV 96.4 H D, MCH 26.3 L, MCHC 27.3 L D, RDW Std Deviation 49.6 H, RDW Coeff of Asael 13.8, Plt Count 389, MPV 9.6, Neut % (Auto) Not Reportable, Absolute Neuts (auto) 11.8 H, Absolute Lymphs (auto) 13.24 H, Total Counted 100, Neutrophils % (Manual) 37 L, Band Neutrophils % 3, Lymphocytes % (Manual) 45 H, Monocytes % (Manual) 9, Metamyelocytes % 3 H, Myelocytes % 3 H, Diff Path Review Reviewed, Atypical Lymphocytes 1+, Platelet Estimate ADEQUATE, RBC Morphology NORM C+C 08/07/21 06:42: Sodium 139, Potassium 4.3, Chloride 96 L, Carbon Dioxide 29.0, Anion Gap 14, BUN 27 H, Creatinine 1.72 H, Estim Creat Clear Calc 45.10, Est GFR (MDRD) Af Amer 52 L, Est GFR (MDRD) Non-Af 43 L, BUN/Creatinine Ratio 15.7, Glucose 364 H, Calcium 8.8, Total Bilirubin 0.20, AST 35, ALT 37, Alkaline Phosphatase 108, Troponin I High Sens 61, Total Protein 6.2 L, Albumin 2.8 L, Globulin 3.4, Albumin/Globulin Ratio 0.8 L 08/07/21 06:42: Lactic Acid 12.1 H* 08/07/21 06:42: B-Natriuretic Peptide 82.5 08/07/21 06:42: Total Creatine Kinase 107, Triglycerides 160 08/07/21 07:05: Urine Color Yellow, Urine Clarity Clear, Urine pH 5.0, Ur S pecific [place] 1.025, Urine Protein 15 H, Urine Glucose (UA) 100 H, Urine Ketones Negative, Urine Occult Blood 25 H, Urine Nitrite Negative, Urine Bilirubin Negative, Urine Urobilinogen Normal, Ur Leukocyte Esterase Negative, Urine RBC 0 SEEN, Urine WBC 0 SEEN, Ur Squamous Epith Cells 0 SEEN, Urine Bacteria 0 SEEN, Urine Mucus 0 SEEN 08/07/21 11:10: Lactic Acid 1.8 08/08/21 04:05: WBC 31.3 H*, RBC 4.91, Hgb 12.9 L, Hct 43.1, MCV 87.8 D, MCH 26.3 L, MCHC 29.9 L D, RDW Std Deviation 45.6 H, RDW Coeff of Asael 14.2, Plt Count 355, MPV 9.5, Immature Gran % (Auto) 1.900 H, Neut % (Auto) 87.7 H, Lymph % (Auto) 1.8 L, Ross % (Auto) 4.8, Eos % (Auto) 3.5, Baso % (Auto) 0.3, Absolute Neuts (auto) 27.5 H, Absolute Lymphs (auto) 0.55 L, Nucleated RBC % 0, Differential Comment SCANNED, Diff Path Review May 08/08/21 04:05: Sodium 140, Potassium 3.9, Chloride 102, Carbon Dioxide 31.0, Anion Gap 7, BUN 52 H, Creatinine 2.39 H, Estim Creat Clear Calc 32.46, Est GFR (MDRD) Af Amer 36 L, Est GFR (MDRD) Non-Af 30 L, BUN/Creatinine Ratio 21.8 H, Glucose 211 H, Calcium 8.2 L, Total Bilirubin 0.50, AST 85 H, ALT 63 H, Alkaline Phosphatase 104, Total Protein 6.2 L, Albumin 2.6 L, Globulin 3.6, Albumin/Globulin Ratio 0.7 L Micro: Microbiology 08/07/21 06:43 Interface Orders SARS-CoV-2 Antigen (Rapid) - Final ABG Data ABG results: ABG 08/07/21 08/07/21 07:30 09:54 Specimen Type ART ART Sample Site R Radial L Radial pH 7.10 L* 7.16 L* Bicarbonate Actual 27.3 H 34.7 H Total CO2 30 38 Base Excess -2 6 H O2 Saturation 100 H 87 L O2 % 70 60 ABG pCO2 87.6 H* 97.8 H* ABG pO2 234 H 72 L Paco Test Positive Positive Respiration Rate 16 16 O2 Delivery Device Adult Vent Adult Vent Vent Mode AC AC Tidal Volume 600 500 POC PEEP 5 5 Crit Call To/Read Back Yes Yes Blood Gas Notified Whom nubia ELAINE Radiography Diagnostic Testing: Radiology Impression Chest X-Ray 08/07/21 06:42 IMPRESSION: 1. Endotracheal tube with tip 6.5 cm above the timothy. 2. Diffuse interstitial and alveolar opacities and small pleural effusions. Findings may indicate edema and/or infection. at 0734 Reported and signed by: Sumeet Calderon MD Electronically Signed: Sumeet Calderon MD at 7:34 EDT Tel , Service support , KUB X-Ray 08/07/21 06:52 IMPRESSION: Tip of the enteric tube is just below level of the GE junction within the proximal stomach. Consider advancing 8-10 cm. at 0735 Reported and signed by: Sumeet Calderon MD Electronically Signed: Sumeet Calderon MD at 7:34 EDT Tel , Service support , Chest X-Ray 08/07/21 09:17 IMPRESSION: 1. Satisfactory position of right jugular central venous catheter. 2. Multilobar (right dominant) pulmonary infiltrates suggest pneumonia versus pulmonary edema. Electronically Signed: Fazal Sullivan MD (Brooks) at 9:33 EDT , Service support , Physical Exam Const General Appearance: intubated and patient mechanically ventilated Nutritional Appearance: obese HEENT normocephalic and head/scalp atraumatic Mouth: endotracheal tube in place and OG tube in place Eyes conjunctivae normal General Eye: decreased light reflex Pupil: pinpoint Neck no lymphadenopathy and supple General: trachea midline and CVC in place Chest inspection of chest normal Resp Auscultation: wheezes and diminished lung sounds Cardio regular rate and regular rhythm GI normal to inspection, nondistended, normoactive bowel sounds Extremity General Extremity: clubbing; Negative for edema Skin no rashes or lesions noted Neuro Neuro Narrative: The patient does still have a gag reflex intact and initiate spontaneous breaths on his own. Sensorium / Orientation: sedated on vent Charges/Coding Procedures Hospitalists Procedures: [id number] Critial Care 1st Hr
[2021-08-08] MEDS: Heparin Injection (Vial) 5,000 UNIT/ML VIAL 5000 UNIT SC ×3 (06:17→22:23)
[2021-08-08] MEDS: CHLORHEXIDINE GLUC 2% CLOTH 1 EACH TOWELETTE TOPICAL ×2 (06:30→22:23)
[2021-08-08 07:16] LABS: Allen Test Positive; Base Excess 4 mmol/L (-2 to +2); Bicarbonate 29.7 mmol/L (22-26); Blood Gas Specimen Type ART; FI02 30; Mode AC; O2 Delivery Device Adult Vent; PEEP 5; PO2 51 mmHG (75-100); RR 18; SITE R Radial; SO2 83 % (95-99); Total Carbon Dioxide 31 mmol/L; Vt 500; pCO2 53.2 mmHg (35-45); pH 7.36 (7.35-7.45)
--- NOTE | 2021-08-08 08:42 | PN.HOSP_ITS ---
Subjective Subjective Follow-up with acute respiratory failure: Patient seen and examined. He appears unresponsive, no gag reflex. EEG report shows fairly typical post anoxic change indicative of poor prognosis. Objective Data Objective Data Vital Signs: Vital Signs Temp Pulse Resp BP Pulse Ox 98.8 F 105 H 18 125/65 H 96 08/08/21 08:00 08/08/21 08:00 08/08/21 08:00 08/08/21 08:00 08/08/21 08:00 Oxygen Flow Rate (L/min) 100 Oxygen Delivery Method Mechanical Ventilator Weight: 112.4 kg Body Mass Index (BMI) 36.8 Intake & Output: Intake and Output for Last 24 Hours 08/06/21 08/07/21 08/08/21 23:59 23:59 23:59 Intake Total 1225.75 / 1487.78 928.64 / 928.64 Output Total 300 / 475 1075 / 1075 Balance 925.75 / 1012.78 -146.36 / -146.36 Lab / Micro Data Result Diagrams: 08/08/21 04:05 08/08/21 04:05 Labs: Laboratory Results - last 24 hr 08/07/21 06:41: POC Glucose 291 H 08/07/21 06:42: Diff Path Review Reviewed 08/07/21 06:42: Total Creatine Kinase 107, Triglycerides 160 08/07/21 11:10: Lactic Acid 1.8 08/08/21 04:05: WBC 31.3 H*, RBC 4.91, Hgb 12.9 L, Hct 43.1, MCV 87.8 D, MCH 26.3 L, MCHC 29.9 L D, RDW Std Deviation 45.6 H, RDW Coeff of Asael 14.2, Plt Co unt 355, MPV 9.5, Immature Gran % (Auto) 1.900 H, Neut % (Auto) 87.7 H, Lymph % (Auto) 1.8 L, [place] % (Auto) 4.8, Eos % (Auto) 3.5, Baso % (Auto) 0.3, Absolute Neuts (auto) 27.5 H, Absolute Lymphs (auto) 0.55 L, Nucleated RBC % 0, Differential Comment SCANNED, Diff Path Review February08/08/21 04:05: Sodium 140, Potassium 3.9, Chloride 102, Carbon Dioxide 31.0, Anion Gap 7, BUN 52 H, Creatinine 2.39 H, Estim Creat Clear Calc 32.46, Est GFR (MDRD) Af Amer 36 L, Est GFR (MDRD) Non-Af 30 L, BUN/Creatinine Ratio 21.8 H, Glucose 211 H, Calcium 8.2 L, Total Bilirubin 0.50, AST 85 H, ALT 63 H, Alkaline Phosphatase 104, Total Protein 6.2 L, Albumin 2.6 L, Globulin 3.6, Albumin/Globulin Ratio 0.7 L Micro: Microbiology 08/07/21 06:43 Interface Orders SARS-CoV-2 Antigen (Rapid) - Final ABG Data ABG results: ABG 08/07/21 08/08/21 09:54 07:12 Specimen Type ART ART Sample Site L Radial R Radial pH 7.16 L* 7.36 Bicarbonate Actual 34.7 H 29.7 H Total CO2 38 31 Base Excess 6 H 4 H O2 Saturation 87 L 83 L O2 % 60 30 ABG pCO2 97.8 H* 53.2 H ABG pO2 72 L 51 L Paco Test Positive Positive Respiration Rate 16 18 O2 Delivery Device Adult Vent Adult Vent Vent Mode AC AC Tidal Volume 500 500 POC PEEP 5 5 Crit Call To/Read Back Yes Blood Gas Notified Whom ELAINE Radiography Diagnostic Testing: Radiology Impression Chest X-Ray 08/07/21 09:17 IMPRESSION: 1. Satisfactory position of right jugular central venous catheter. 2. Multilobar (right dominant) pulmonary infiltrates suggest pneumonia versus pulmonary edema. Electronically Signed: Fazal Sullivan MD (Bro[facility]) at 9:33 EDT , Service support , Physical Exam Narrative Physical exam: General: Obtunded, intubated, on mechanical ventilator HEENT: Atraumatic Oral: Moist Mucosa Neck: Supple Lungs: Diminished to auscultation Cardiovascular: HS I+II, regular, no murmurs Abdomen: Bowel Sounds Present, Soft, Non Tender Extremities: No edema Assessment & Plan Assessment/Plan (1) Cardiopulmonary arrest with successful resuscitation: (2) Respiratory arrest before cardiac arrest: (3) ANNETTE (acute kidney injury): (4) Hypotension: QUALIFIERS: Hypotension type: unspecified hypotension type Qualified Code(s): I95.9 - Hypotension, unspecified (5) Seizure-like activity: (6) Lactic acidosis: PLAN: 1. 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 Status post cardiopulmonary arrest secondary to acute respiratory arrest Status post CPR for PEA Will continue to monitor 3. Anoxic brain injury, seen on EEG Patient's called and updated. Will follow-up on further discussions with her when she comes in. 4. Hypotension, unspecified, likely secondary to propofol side-effect Will get blood cultures Patient is getting a central line, Levophed will be started 5. Acute kidney injury likely secondary to #1 and 3, worsening Admitting creatinine is 1.72, creatinine today is 2.39 We will continue to work on blood pressures and fluids to see how he does Repeat blood work in a.m. 6. Acute COPD exacerbation in a patient with end-stage COPD Continue IV Solu-Medrol 7. DVT prophylaxis?heparin subcu Patient's prognosis is very poor. This was discussed with his Charges/Coding Visit Charges Inpatient E&M: 74838 Subs Hosp L3
[2021-08-08] MEDS: Chlorhexidine 15 ML PO ×2 (09:32→22:23)
[2021-08-08] MEDS: Metoprolol Tartrate 25 MG Tablet PO ×2 (10:13→22:23)
[2021-08-08] MEDS: Insulin Lispro 100 UNIT/ML INSULN.PEN SC (11:42)
[2021-08-08 11:51] LABS: Bedside Glucose 192 mg/dL (70-110)
[2021-08-08 18:21] LABS: Bedside Glucose 144 mg/dL (70-110)
[2021-08-08] MEDS: Ipratropium/Albuterol Sulfate 3 ML AMPUL.NEB INHALATION (19:15)
[2021-08-09] VITALS (31 sets, daily range): BP systolic 108–150; BP diastolic 66–93; PULSE 88–128; RESP 14–25; TEMP 37.7–38.2; O2SAT 93–99
[2021-08-09 00:35] LABS: Bedside Glucose 130 mg/dL (70-110)
[2021-08-09] MEDS: Ipratropium/Albuterol Sulfate 3 ML AMPUL.NEB INHALATION ×3 (00:35→13:06)
[2021-08-09 04:05] LABS: Absolute Lymphocyte Count 0.69 X10^3/uL (0.83-4.51); Absolute Neutrophil Count 29.3 X10^3/uL (2.0-7.7); Basophil# 0.08 X10^3/uL; Basophil% 0.3 % (0-1); Hematocrit 41.8 % (40-54); Hemoglobin 12.8 g/dL (13.0-16.5); Lymphocyte # 0.69 X10^3/ul (0.83-4.51); Lymphocyte % 2.2 % (19-41); Mean Corp Hgb Conc 30.6 g/dL (32-36); Mean Corpuscular Hgb 26.6 pg (27.0-32.0); Mean Corpuscular Volume 86.9 fL (80-94); Mean Platelet Vol. 9.4 fl (6.2-12.0); Monocyte# 1.36 X10^3/uL; Monocyte% 4.3 % (0-10); NRBC Flagged by Analyzer 0 % (0-5); Neutrophil # 29.26 X10^3/uL (2.7-7.7); Neutrophil % 92.1 % (47-70); POSITIVE COUNT YES; POSITIVE DIFFERENTIAL YES; Platelet Count 351 K/mm3 (150-450); RBC Distribution Width CV 14.4 % (11.6-14.6); RBC Distribution Width SD 46.1 fl (35.1-43.9); Red Blood Count 4.81 M/mm3 (4.6-6.2); White Blood Count 31.7 K/mm3 (4.4-11.0)
[2021-08-09 04:19] LABS: ALB/GLOB Ratio 0.6 RATIO (0.9-2.4); AST(SGOT) 132 U/L (15-37); Alanine Aminotransfer ALT/SGPT 55 U/L (16-61); Albumin, Serum 2.6 g/dL (3.2-5.0); Alkaline Phosphatase 104 U/L (45-117); Anion Gap 7 (5-15); BUN 48 mg/dL (7-18); BUN/Creat Ratio 28.2 RATIO (10-20); Calcium,Total 8.7 mg/dL (8.5-10.1); Chloride 103 mmol/L (98-107); EST Glomerular Filtration Rate 44 mL/min (>60); Est Glom Filt Rate - Afr Amer 53 mL/min (>60); Estimated Creatinine Clearance 45.63 ml/min; Glucose 153 mg/dL (74-106); Potassium 4.2 mmol/L (3.5-5.1); Protein, Total 6.6 g/dL (6.4-8.2); Sodium Level 142 mmol/L (136-145)
[2021-08-09 04:30] LABS: Differential Indicated SCAN CRITERIA MET
--- NOTE | 2021-08-09 05:43 | PN.CC_ITS ---
Assessment & Plan Assessment/Plan (1) Cardiopulmonary arrest with successful resuscitation: (2) Respiratory arrest before cardiac arrest: (3) Seizure-like activity: (4) COPD exacerbation: (5) Rhinovirus: PLAN: RECOMMENDATIONS: 1. Continue patient on assist control mode mechanical ventilation and wean FiO2/PEEP to maintain saturations at or above 90%. 2. Continue scheduled bronchodilators. 3. Continue empiric antimicrobials. 4. Continue to hold tube feeds for now. 5. Ongoing goals of care discussion with the patient's family. IMPRESSIONS: 1. PEA cardiac arrest, likely secondary to primary respiratory event The patient presented to the hospital after suffering a primary respiratory arrest secondary to a COPD exacerbation and dysfunctional noninvasive ventilator, in his home environment. The patient was significantly hypoxemic for a period of time, prior to return of spontaneous circulation. For now, the patient will be continued on assist control mode of mechanical ventilation with FiO2 and PEEP weaned as tolerated. He will be continued on scheduled bronchodilators, IV steroids and empiric antimicrobials. The patient's presenting COPD exacerbation was likely precipitated by a rhinovirus upper respiratory infection. 2. Concern for anoxic encephalopathy The patient is encephalopathic with concern for anoxic brain injury. He has been demonstrating periods of myoclonus as well. EEG was completed and demonstrated findings compatible with anoxic brain injury. Depending on the sofia ent's clinical course, may need to consider MRI brain and neurology consultation to assist with prognostication, depending on the wishes of the patient's family. 3. Acute kidney injury Improving. Likely prerenal in etiology and related to ischemic ATN in the setting of #1. Continue to monitor urine output for now. No current indication for renal replacement therapy. 4. Recent COPD exacerbation secondary to rhinovirus/Hypertension/MICHELLE/hyperlipidemia Complicates care, management, recovery and prognosis. Continue scheduled bronchodilator therapy. Continue to hold tube feeds for now. TIME: 33 minutes of critical care time, independent of procedures, was spent addressing the patient's PEA cardiac arrest, possible anoxic brain injury, distributive shock, acute kidney injury, COPD with exacerbation, review of all data and collaboration with care team. Subjective Subjective The patient was seen and examined at the bedside this morning. Events from the last 24 hours have been reviewed. The patient currently has a low-grade fever, but remains otherwise hemodynamically stable. He remains on assist control mode of mechanical ventilation with an FiO2 requirement of 35% and PEEP of five. He is sedated on propofol and fentanyl. Copious endotracheal secretions were noted by the overnight nursing staff. He no longer has a cough or gag reflex. EEG revealed findings consistent with post anoxic change. The patient appears to be overall net even for the hospitalization. White count remains elevated at 31,000. Creatinine has improved to 1.7. The patient remains neurologically unchanged from previous. Objective Data Objective Data The patient's most recent lab work, culture data and imaging studies have all been personally reviewed. Rapid coronavirus antigen testing was negative. Respiratory viral panel was positive for rhinovirus. Blood, urine and sputum cultures are pending. Vital Signs: Vital Signs Temp Pulse Resp BP Pulse Ox 100.5 F H 108 H 22 H 125/70 H 93 08/09/21 04:00 08/09/21 04:00 08/09/21 04:00 08/09/21 04:00 08/09/21 04:00 Oxygen Flow Rate (L/min) 100 Oxygen Delivery Method Mechanical Ventilator Weight: 112.4 kg Body Mass Index (BMI) 36.8 Intake & Output: Intake and Output for Last 24 Hours 08/07/21 08/08/21 08/09/21 23:59 23:59 23:59 Intake Total 1225.75 / 1487.78 1887.31 / 1952.31 84.83 / 84.83 Output Total 300 / 475 1925 / 2775 850 / 850 Balance 925.75 / 1012.78 -37.69 / -822.69 -765.17 / -765.17 Lab / Micro Data Attestation: I reviewed the patient's lab results. Result Diagrams: 08/09/21 03:45 08/09/21 03:45 Labs: Laboratory Results - last 24 hr 08/08/21 11:39: POC Glucose 192 H 08/08/21 18:13: POC Glucose 144 H 08/09/21 00:26: POC Glucose 130 H 08/09/21 03:45: WBC 31.7 H*, RBC 4.81, Hgb 12.8 L, Hct 41.8, MCV 86.9, MCH 26.6 L, MCHC 30.6 L, RDW Std Deviation 46.1 H, RDW Coeff of Asael 14.4, Plt Count 351, MPV 9.4, Immature Gran % (Auto) 1.100 H, Neut % (Auto) 92.1 H, Lymph % (Auto) 2.2 L, [place] % (Auto) 4.3, Eos % (Auto) 0.0, Baso % (Auto) 0.3, Absolute Neuts (auto) 29.3 H, Absolute Lymphs (auto) 0.69 L, Nucleated RBC % 0, Diff Path Review February08/09/21 03:45: Sodium 142, Potassium 4.2, Chloride 103, Carbon Dioxide 32.0, Anion Gap 7, BUN 48 H, Creatinine 1.70 H, Estim Creat Clear Calc 45.63, Est GFR (MDRD) Af Amer 53 L, Est GFR (MDRD) Non-Af 44 L, BUN/Creatinine Ratio 28.2 H, Glucose 153 H, Calcium 8.7, Total Bilirubin 0.50, AST 132 H, ALT 55, Alkaline P hosphatase 104, Total Protein 6.6, Albumin 2.6 L, Globulin 4.0, Albumin/Globulin Ratio 0.6 L Micro: Microbiology 08/07/21 07:15 Sputum, Induced/Lukens Gram Stain - Final 08/07/21 07:15 Sputum, Induced/Lukens Respiratory Culture - Preliminary Appears to be normal respiratory catrachito. Further studies to follow. 08/07/21 07:05 Urine, Catheterized Urine Culture - Preliminary Culture exhibits no growth. 08/07/21 06:43 Interface Orders SARS-CoV-2 Antigen (Rapid) - Final ABG Data ABG results: ABG 08/08/21 07:12 Specimen Type ART Sample Site R Radial pH 7.36 Bicarbonate Actual 29.7 H Total CO2 31 Base Excess 4 H O2 Saturation 83 L O2 % 30 ABG pCO2 53.2 H ABG pO2 51 L Paco Test Positive Respiration Rate 18 O2 Delivery Device Adult Vent Vent Mode AC Tidal Volume 500 POC PEEP 5 Physical Exam Const General Appearance: intubated and patient mechanically ventilated Nutritional Appearance: obese HEENT normocephalic and head/scalp atraumatic Mouth: endotracheal tube in place and OG tube in place Eyes conjunctivae normal General Eye: decreased light reflex Pupil: pinpoint Neck no lymphadenopathy and supple General: trachea midline and CVC in place Chest inspection of chest normal Resp Auscultation: rhonchi and diminished lung sounds Cardio S1 normal heart sound and S2 normal heart sound Rate: tachycardic GI normal to inspection, nondistended, normoactive bowel sounds Extremity General Extremity: clubbing; Negative for edema Skin no rashes or lesions noted Neuro Sensorium / Orientation: obtunded Charges/Coding Procedures Hospitalists Procedures: 33581 Critial Care 1st Hr
[2021-08-09] MEDS: Heparin Injection (Vial) 5,000 UNIT/ML VIAL 5000 UNIT SC ×2 (06:23→14:22)
[2021-08-09] MEDS: 0.9% Saline Lock 10 ML Syringe IV (06:28)
[2021-08-09 06:40] LABS: Bedside Glucose 127 mg/dL (70-110)
[2021-08-09] MEDS: TITRATION PARAMETER CHANGE 1 EACH IV (06:42)
[2021-08-09] MEDS: Metoprolol Tartrate 25 MG Tablet PO (08:33)
[2021-08-09] MEDS: Chlorhexidine 15 ML PO (08:33)
[2021-08-09] MEDS: Propofol 10MG/Ml 1,000 MG/100 ML Bottle 6.8 MG CONT INF (08:39)
--- NOTE | 2021-08-09 10:42 | NURSING ---
informed [facility] family would like to withdraw care , they said it was OK to withdraw , notify when he expires
[2021-08-09 11:26] LABS: Bedside Glucose 140 mg/dL (70-110)
[2021-08-09] MEDS: Insulin Lispro 100 UNIT/ML INSULN.PEN SC (17:11)
[2021-08-09 17:21] LABS: Bedside Glucose 171 mg/dL (70-110)
--- NOTE | 2021-08-09 17:29 | NURSING ---
family @ bedside have. order to extubate , Family would like to spend time with patient they will let us know when they are ready, cps aware
--- NOTE | 2021-08-09 19:40 | CPS ---
pt terminally extubated at this time
[2021-08-09] MEDS: Atropine Sulfate 1% 2 ml Bottle 4 DRP SL (19:45)
[2021-08-09] MEDS: morphine (oral solution) 10MG/0.5ML Syringe 5 MG SL/PO ×3 (19:46→23:57)
--- NOTE | 2021-08-09 20:02 | NURSING ---
08/09/211939 stated that they were ready for the patient to be terminally extubated. Pt. extubated at this time. Pt. tolerated extubation well and was put on 2L NC.
--- NOTE | 2021-08-09 21:47 | PCM.PN.HOSP ---
Subjective Subjective Follow-up with acute respiratory failure: Patient was seen and examined in the morning. Family were coming to the bedside prior to terminal extubation. Code status was made DNR-CC around 4pm. Terminal extubation orders given around 5 pm Objective Data Objective Data Vital Signs: Vital Signs Temp Pulse Resp BP Pulse Ox 100.3 F H 116 H 14 148/81 H 97 08/09/21 18:00 08/09/21 20:00 08/09/21 18:00 08/09/21 18:00 08/09/21 18:00 Oxygen Flow Rate (L/min) 100 Oxygen Delivery Method Mechanical Ventilator Weight: 109.4 kg Body Mass Index (BMI) 36.8 Intake & Output: Intake and Output for Last 24 Hours 08/07/21 08/08/21 08/09/21 23:59 23:59 23:59 Intake Total 1225.75 / 1487.78 1887.31 / 1952.31 502.66 / 502.66 Output Total 300 / 475 2275 / 3125 2355 / 2355 Balance 925.75 / 1012.78 -387.69 / -1172.69 -1852.34 / -1852.34 Lab / Micro Data Result Diagrams: 08/09/21 03:45 08/09/21 03:45 Labs: Laboratory Results - last 24 hr 08/09/21 00:26: POC Glucose 130 H 08/09/21 03:45: WBC 31.7 H*, RBC 4.81, Hgb 12.8 L, Hct 41.8, MCV 86.9, MCH 26.6 L, MCHC 30.6 L, RDW Std Deviation 46.1 H, RDW Coeff of Asael 14.4, Plt Count 351, MPV 9.4, Immature Gran % (Auto) 1.100 H, Neut % (Auto) 92.1 H, Lymph % (Auto) 2.2 L, [place] % (Auto) 4.3, Eos % (Auto) 0.0, Baso % (Auto) 0.3, Absolute Neuts (auto) 29.3 H, Absolute Lymphs (auto) 0.69 L, Nucleated RBC % 0, Diff Path Review February08/09/21 03:45: Sodium 142, Potassium 4.2, Chloride 103, Carbon Dioxide 32.0, Anion Gap 7, BUN 48 H, Creatinine 1.70 H, Estim Creat Clear Calc 45.63, Est GFR (MDRD) Af Amer 53 L, Est GFR (MDRD) Non-Af 44 L, BUN/Creatinine Ratio 28.2 H, Glucose 153 H, Calcium 8.7, Total Bilirubin 0.50, AST 132 H, ALT 55, Alkaline Phosphatase 104, Total Protein 6.6, Albumin 2.6 L, Globulin 4.0, Albumin/Globulin Ratio 0.6 L 08/09/21 06:13: POC Glucose 127 H 08/09/21 11:18: POC Glucose 140 H 08/09/21 17:09: POC Glucose 171 H Micro: Microbiology 08/07/21 07:15 Sputum, Induced/Lukens Gram Stain - Final 08/07/21 07:15 Sputum, Induced/Lukens Respiratory Culture - Final 08/07/21 07:05 Urine, Catheterized Urine Culture - Final Culture exhibits no growth. 08/07/21 07:15 Blood Culture (Wb) - Anticubital Right Blood Culture - Preliminary No growth in 48 hours. 08/07/21 06:55 Blood Culture (Wb) - Anticubital Right Blood Culture - Preliminary No growth in 48 hours. 08/07/21 06:43 Interface Orders SARS-CoV-2 Antigen (Rapid) - Final Physical Exam Narrative Physical exam: General: Obtunded, intubated, on mechanical ventilator HEENT: Atraumatic, pupils are pinpoint and not reactive to light Oral: Moist Mucosa Neck: Supple Lungs: Diminished to auscultation Cardiovascular: HS I+II, regular, no murmurs Abdomen: Bowel Sounds Present, Soft, Non Tender Extremities: No edema Assessment & Plan Assessment/Plan (1) Cardiopulmonary arrest with successful resuscitation: (2) Respiratory arrest before cardiac arrest: (3) ANNETTE (acute kidney injury): (4) Hypotension: QUALIFIERS: Hypotension type: unspecified hypotension type Qualified Code(s): I95.9 - Hypotension, unspecified (5) Seizure-like activity: (6) Lactic acidosis: PLAN: 1. Acute hypercapnic respiratory failure secondary to acute respiratory arrest Status post intubation, continue on mechanical ventilator Continue IV Solu-Medrol, breathing treatments Retail Customer Service Specialist consulted 2. Status post cardiopulmonary arrest secondary to acute respiratory arrest Status post CPR for PEA Will continue to monitor 3. Anoxic brain injury, seen on EEG Family aware and terminal extubation with orders initiated. 4. Hypotension, unspecified, likely secondary to propofol side-effect vs septic shock Resp panel is negative. Blood cultures are negative x 48 hours Patient on empiric antibiotics. He is off Levophed since yesterday. 5. Acute kidney injury likely secondary to #1 and 3, worsening 6. Acute COPD exacerbation in a patient with end-stage COPD Continue IV Solu-Medrol 7. DVT prophylaxis?heparin subcu Charges/Coding Visit Charges Inpatient E&M: 24633 [facility] Hosp L3
[2021-08-09] MEDS: LORazepam 2 MG/ML Bottle 0.5 MG SL (22:24)
[2021-08-10] MEDS: morphine (oral solution) 10MG/0.5ML Syringe 5 MG SL/PO (02:15)
--- NOTE | 2021-08-10 03:56 | EXP.PCM_ITS ---
Preliminary Cause of Preliminary Cause of Preliminary Cause of : copd exacerbation Date of Admission: 08/07/21 Principle Diagnosis Problem List: Active and Suspected Problems (Updated 08/07/21 @ 09:[address] Madeleine Haddad MD) Lactic acidosis (Acute) Cardiopulmonary arrest with successful resuscitation (Acute) Respiratory arrest before cardiac arrest (Acute) ANNETTE (acute kidney injury) (Acute) Hypotension (Acute) Seizure-like activity (Acute) Rhinovirus (Acute) COPD exacerbation (Acute) Acute and chronic respiratory failure with hypoxia (Acute) Hospital Course hpi: TIARA JACOB, is a 60 M who presents with the above. Patient was recently discharged on 08/05/21 after admission for acute COPD exacerbation secondary to rhinovirus. Patient was discharged on prednisone taper and prophylactic antibiotics. He was supposed to follow-up with pulmonology in the outpatient. Patient's reportedly called the EMS this morning when he complained of shortness of breath and then he passed out. The EMS found him in PEA and given 2 rounds of epinephrine and had return of spontaneous circulation. In route, he lost his pulse again and was in PEA. He received another round of epinephrine. Patient's trilogy ventilator was not working apparently. On arrival to the emergency room, patient was unresponsive but he had a pulse. His blood pressure was low. He was intubated without any sedatives. Blood pressures improved with IV fluid boluses Hospital course: Acute hypercapnic respiratory failure secondary to acute respiratory arrest from copd exacerbation On mechanical ventilator Received IV Solu-Medrol and breathing treatments Machine Operator Helper followed patient Status post cardiopulmonary arrest secondary to acute respiratory arrest Status post CPR for PEA Anoxic brain injury Received Keppra and ativan EEG showed post anoxic injury Acute kidney injury from ATN Received IVF Trend BMP DVT prophylaxis?heparin subcu Nurse reported patient passed on 08/10/2021 at 0332. Verified by 2 RNs. Date of : 08/10/2021; Time of : 331 Immediate cause of (final disease of condition resulting in ): Acute COPD exacerbation duration: Days/month/years: Days Listed conditions leading to cause of (due to or as a consequence of) :copd Day/month/years: Years Listed other significant conditions contributing to but not resulting in the underlying cause of : anoxic brain injury; CKD; diastolic heart failure; diabetes mellitus. Did tobacco contribute to : Yes.
--- NOTE | 2021-08-10 04:22 | NURSING ---
No fluids given within last hour of life.
--- NOTE | 2021-08-10 04:28 | NURSING ---
Pt. at [id number]. Verified by Vega Ceja RN and Tejas Childers RN.
--- NOTE | 2021-08-10 05:38 | PCM.PN.INT ---
Objective Data Objective Data Vital Signs: Vital Signs Temp Pulse Resp BP Pulse Ox 100.4 F H 110 H 20 H 150/93 H 94 08/09/21 19:00 08/09/21 23:23 08/09/21 23:23 08/09/21 19:00 08/09/21 23:23 Oxygen Flow Rate (L/min) 2 Oxygen Delivery Method Nasal Cannula Weight: 109.4 kg Body Mass Index (BMI) 36.8 Intake & Output: Intake and Output for Last 24 Hours 08/08/21 08/09/21 08/10/21 23:59 23:59 23:59 Intake Total 1887.31 / 1952.31 798.24 / 798.24 Output Total 2275 / 3125 2355 / 2355 Balance -387.69 / -1172.69 -1556.76 / -1556.76 Lab / Micro Data Result Diagrams: 08/09/21 03:45 08/09/21 03:45 Labs: Laboratory Results - last 24 hr 08/09/21 06:13: POC Glucose 127 H 08/09/21 11:18: POC Glucose 140 H 08/09/21 17:09: POC Glucose 171 H Micro: Microbiology 08/07/21 07:15 Sputum, Induced/Lukens Gram Stain - Final 08/07/21 07:15 Sputum, Induced/Lukens Respiratory Culture - Final 08/07/21 07:05 Urine, Catheterized Urine Culture - Final Culture exhibits no growth. 08/07/21 07:15 Blood Culture (Wb) - Anticubital Right Blood Culture - Preliminary No growth in 48 hours. 08/07/21 06:55 Blood Culture (Wb) - Anticubital Right Blood Culture - Preliminary No growth in 48 hours. 08/07/21 06:43 Interface Orders SARS-CoV-2 Antigen (Rapid) - Final
[2021-08-10 12:44] LABS: Pathologist Review Reviewed
[2021-08-10 13:34] LABS: Pathologist Review Reviewed
--- NOTE | 2021-08-10 14:45 | ED.RN ---
[facility] health care recruiter was called by pts and they called to verify pt had
== END 2021-08-10 04:00 | DRG 208 ==
LOC: ED 06:52 → ICU 07:26
PROVIDERS: Internal Medicine Critical Care Medicine; Admitting Provider Internal Medicine; Emergency Provider Emergency Medicine; PCP Internal Medicine; Visit Provider Internal Medicine
DX: J44.1 Chronic obstructive pulmonary disease with (acute) exacerbation (principal); J96.22 Acute and chronic respiratory failure with hypercapnia; J96.21 Acute and chronic respiratory failure with hypoxia; N17.0 Acute kidney failure with tubular necrosis; G93.1 Anoxic brain damage, not elsewhere classified; I13.0 Hypertensive heart and chronic kidney disease with heart failure and stage 1 through stage 4 chronic kidney disease, or unspecified chronic kidney disease; I50.32 Chronic diastolic (congestive) heart failure; I46.9 Cardiac arrest, cause unspecified; R57.8 Other shock; B97.89 Other viral agents as the cause of diseases classified elsewhere; E11.22 Type 2 diabetes mellitus with diabetic chronic kidney disease; N18.2 Chronic kidney disease, stage 2 (mild); I25.10 Atherosclerotic heart disease of native coronary artery without angina pectoris; G47.33 Obstructive sleep apnea (adult) (pediatric); G25.3 Myoclonus; E78.5 Hyperlipidemia, unspecified; J06.9 Acute upper respiratory infection, unspecified; Z66 Do not resuscitate; Z79.02 Long term (current) use of antithrombotics/antiplatelets; Z79.82 Long term (current) use of aspirin; Z79.899 Other long term (current) drug therapy; Z79.4 Long term (current) use of insulin; Z87.891 Personal history of nicotine dependence
CPT/HCPCS: 31500; 31720; 36600; 51702; 71045; 74018; 80053; 81001; 82550; 82803; 82962; 83605; 83880; 84478; 84484; 85025; 87040; 87070; 87086; 87205; 87426; 93005; 94002; 94003; 94640; 95819; 97802; 97803; 99251; 99285; J7030; J7050; A4216; C1751; G0463; J3010; J3490